=== PATIENT | male | born 1940 | race African-American/Black ===

== ENCOUNTER 2019-02-22 16:51 | Inpatient (IN) | payer MEDICARE ==
[~2019-02-22] VITALS: Ht 180.3 cm; Wt 97.7 kg
--- NOTE | ~2019-02-22 | HEMODYNAMI ---
PATIENT:MANA SAXENA MEDICAL RECORD: [id number] : 36 LOCATION:[place] [address] ADMISSION DATE: 02/24/19 Generatedon:03/02/201918:38 Patient name: MANA SAXENA Patient #: [id number] SSN: : 1940 Date of study: 03/02/2019 Page: Of Hemodynamic Procedure Report Patient Data Patient Demographics Procedure consent was obtained First Name: MANA Gender: Male Last Name: ODESSA : 1940 Patient #: [id number] Age: 78 year(s) Race: Black Additional ID: [id number] Contact details Address: [address] [place] [address] [address]REET State: [place] City: [place] Zip code: [address] Past Medical History Allergies: No known allergies Admission Admission Data Admission Date: 02/24/2019 Admission Time: 9:48 Room #: [facility] Height (in.): 71 BSA: 1.97 (m2) Height (cm.): 180.34 BMI: 23.71 (kg/m2) Weight (lbs.): 170 Weight (kg.): 77.11 Procedure Procedure Types Cath Procedure Peripheral Cath Diagnostic Procedure Hand Laster Peripheral Procedures Abd/Extremity Visceral/Mesenteric Mesenteric Arteriogram (Abd Artery) Procedure Description Procedure Date Procedure Date: 03/02/2019 Procedure Start Time: 17:45 Procedure Staff Name Function Stanley Juan MD Performing Physician Richa Klein RT Vp Of Technology Deanne Iniguez RN Nurse Erich De La Garza RT Scrub Procedure Data Cath Procedure Fluoroscopy Diagnostic fluoroscopy Total fluoroscopy Time: time: 17.3 min 17.3 min Diagnostic fluoroscopy Total fluoroscopy dose: dose: 1602 mGy 1602 mGy Contrast Material Contrast Material Type Amount (ml) Isovue 300 125 Entry Location Entry Primary Successful Side Size Upsize Upsize Entry Closure Succes sful Closure Location (Fr) 1 (Fr) 2 (Fr) Remarks Device Remarks Femoral Exoseal artery Diagnostic catheters Device Type Used For End Catheter Placement Summit Care CHG-B 5FR 65CM catheter ([id number]) Cook Cobra 2 4Fr 65CM catheter ([id number]) Procedure Medications Medication Administration Route Dosage Heparin Flush Bag added to field 3 bags (1000units/500ml NS) Lidocaine 1% added to field 20 Hemodynamics Rest BSA: 1.97 (m2) O2 Consumption: Estimated: 267.92 (ml/min) O2 Consumption indexed : Estimated:136 (ml/min/m) Pre Cath Intra NCS Post Cath Medications Time Medication Route Dose Verified Delivered Reason Notes Effe ctiveness by by 17:51:44 Heparin Flush added 3 Stanley Angel used for Bag to bags Juan Juan procedure (1000units/500ml field MD CASSIDY NS) 17:51:55 Lidocaine 1% added 20ml Stanley Angel for local to vial Juan Juan anesthetic field MD CASSIDY Procedure Log Time Note 16:20:00 Patient Height : 71 inches 16:20:05 Patient Weight : 170 lbs 16:36:10 Use device set IR Diagnostic 16:36:39 DOC .035 wire (F13854) opened to sterile field. 16:36:40 TUBING Contrast Injection High Pressure (CVA672H) opened to sterile field. 16:36:41 PERCUTANEOUS ENTRY 19GA needle opened to sterile field. 16:36:42 SHEATH 5FR [place] (CHV584) opened to sterile field. 16:36:43 Tegaderm 4 x 4 (1626W) opened to sterile field. 16:36:43 Sterile Angiographic Pack opened to sterile field. 16:36:44 Bag Decanter (2002S) opened to sterile field. 16:36:45 ACIST Manifold (41455) opened to sterile field. 16:36:46 ACIST Hand Control (51793) opened to sterile field. 16:36:46 ACIST Syringe (42979) opened to sterile field. 16:36:58 - 17:11:03 Time tracking: Stay late (Procedures after 5:00pm) 17:11:55 Patient received from ICU to IR On ventilator. Tansferred to table in Supine position. 17:12:04 Signed procedure consent form obtained from spouse. 17:12:12 H&P Date Dictated: 03/02/2019 Within 30 days and on chart.. 17:12:24 Family in waiting room. 17:12:27 Patient NPO since Midnight. 17:12:37 Patient allergic to No known allergies 17:12:43 Is the patient allergic to Iodine/contrast media? No. 17:13:40 A Cook CHG-B 5FR 65CM catheter (V53212) was advanced over the wire and used for . 17:14:03 - 17:14:03 ----Pre-sedation anethsthesia assessment.---- 17:14:39 see anesthesia notes for monitoring of patient during procedure, genera l anesthesia 17:41:29 Physician arrived 17:41:30 --------ALL STOP TIME OUT------ 17:41:31 Final Timeout: patient, procedure, and site verified with staff and physician. All members of the team are in agreement. 17:42:00 Right groin site verified by team. 17:42:23 Maximum allowable Isovue 300 dose dialysis patientml. Physician notified. (300ml for normal creatinines. For patients with creatinine of 1.7 or higher multiply weight(kg) x 5 divided by creatinine.) 17:42:56 Fire Safety Assessment: A--An alcohol-based skin anteseptic being used preoperatively., C--Open oxygen or nitrous oxide is being used. 17:43:07 Procedure started. 17:43:07 Full Disclosure recording started 17:45:11 Local anesthetic to right femoral artery with Lidocaine 1% by Stanley Juan MD.INITIAL ACCESS ONLY 17:50:24 A Cook Cobra 2 4Fr 65CM catheter (T15998) was advanced over the wire an d used for . 17:50:32 TORQUE DEVICE PLASTIC .038 ( TD01) opened to sterile field. 17:50:49 GLIDE WIRE ANGLE 180cm (EU2380) opened to sterile field. 17:51:44 Heparin Flush Bag (1000units/500ml NS) 3 bags added to field was administered by Stanley Juan MD; used for procedure; 17:51:55 Lidocaine 1% 20ml vial added to field was administered by Stanley Juan MD; for local anesthetic; 17:54:05 Angiography was performed. 18:00:52 COPILOT Valve Control (1357536) opened to sterile field. 18:00:58 TRANSEND STEERABLE wire ([id number]) opened to sterile field. 18:01:19 RENEGADE STAIGHT 150CM microcatheter ([id number]) opened to sterile field. 18:03:02 COIL Micronester 3mm (N80860) opened to sterile field. 18:04:04 COIL Micronester 3mm (W45884) opened to sterile field. 18:18:39 COIL Micronester 3mm (R89636) opened to sterile field. 18:19:55 COIL Micronester 3mm (A71550) opened to sterile field. 18:21:26 COIL Micronester 3mm (V05940) opened to sterile field. 18:30:43 EXOSEAL 5Fr (EX500) opened to sterile field. 18:31:06 Sheath removed intact; hemostasis achieved with Exoseal to the Femoral artery. 18:31:06 A sheath was inserted into the Femoral artery 18:32:35 Procedure ended.(Physican Out) 18:32:54 Fluoroscopy time 17.30 minutes. 18:33:00 Fluoroscopy dose: 1602 mGy 18:33:00 Flurop Dose total: 1602 18:33:37 Contrast amount:Isovue 300 125ml. 18:33:54 Procedure and supply charges have been captured, reviewed, submitted an d are correct. 18:36:09 Report given to ICU. 18:37:54 Patient transfered to ICU with Bed. Device Usage Item Name Manufacture Quantity Catalog Hospital Part Current Minima l Lot# / Number Charge Number Stock Stock Serial# Code DOC .035 wire Cook Medical 1 [id number] [id number] 5 ([id number]) TUBING Merit 1 [id number] 801496 797214 547280 5 Contrast Medical Injection High Pressure (KQW779H) PERCUTANEOUS Cook Medical 1 H72117 659978 096378 5 [id number] ENTRY 19GA needle SHEATH 5FR Terumo 1 RRL763 532279 612389 539647 5 [place] (FOB209) Tegaderm 4 x 3M 1 1626W 942687 682944 197111 5 4 (1626W) Sterile Cardinal 1 [id number] 703996 057777 5 Angiographic Health Pack Bag Decanter Microtek 1 2001S 199450 33207 863539 5 (2001S) Medical Inc. ACIST Acist 1 57502 239754 507824 145930 5 Manifold Medical (56741) Systems Inc ACIST Hand Acist 1 85859 080538 924647 935332 5 Control Medical (47788) Systems Inc ACIST Syringe Acist 1 68774 074210 732271 816337 20 (47372) Medical Systems Inc Cook CHG-B Summit Care Medical 1 G39301 263991 147891 842643 5 5FR 65CM catheter (S12482) Cook Cobra 2 Summit Care Medical 1 V08031 259528 036996 5 4Fr 65CM catheter (R86367) TORQUE DEVICE Cross 1 TD01 949191 900581 551931 5 PLASTIC .038 Scientific ( TD01) GLIDE WIRE Terumo 1 MZ2996 096045 535978 984998 5 ANGLE 180cm (HB4874) COPILOT Valve Cerrato 1 0164571 239110 664771 103514 5 Control Vascular (6694494) TRANSEND Cross 1 [id number] 983113 050994 5 STEERABLE Scientific wire ([id number]) RENEGADE Cross 1 [id number] 781871 771162 5 STAIGHT 150CM Scientific microcatheter ([id number]) COIL Cook Medical 5 O21901 183677 465538 1 9339286 Micronester 9171573 3mm (Z83237) 9379250 1584788 5808094 EXOSEAL 5Fr Cardinal 1 EX500 204205 772858 091361 10 (EX500) Health Signature Audit Deforest Stage Time Signature Unsigned Intra-Procedure 03/02/2019 Richa Klein 6:38:19 PM RT(R) [facility] [address] [place] [address]
[2019-02-22] MEDS ORDERED: LANTUS INSULIN10 ML SC (16:57)
[2019-02-22] MEDS ORDERED: SYMBICORT 16010.2 GM INH (16:57)
[2019-02-22] MEDS ORDERED: LASIX40 MG PO (16:58)
[2019-02-22] MEDS ORDERED: LIPITOR80 MG PO (16:58)
[2019-02-22] MEDS ORDERED: RENVELA800 MG PO (16:59)
[2019-02-22] MEDS ORDERED: BUSPAR5 MG PO (16:59)
[2019-02-22] MEDS ORDERED: COREG 3.1253.125 MG PO (16:59)
[2019-02-22] MEDS ORDERED: COZAAR25 MG PO (16:59)
[2019-02-22] MEDS ORDERED: BAYER CHEWABLE81 MG PO (16:59)
[2019-02-22 18:40] LABS: BASOPHILS 0.2 % (0-2); EOSINOPHILS 0.2 % (0-7); HEMATOCRIT 35.5 % (42.0-54.0); HEMOGLOBIN 11.1 g/dL (13.5-17.5); IMMATURE GRANULOCYTES 0.3 % (0-5); LYMPHOCYTES 8.1 % (15-50); MCH 27.3 pg (26.0-34.0); MCHC 31.3 g/dL (31.0-37.0); MCV 87.4 fL (80.0-100.0); MONOCYTES 13.6 % (2-11); NEUTROPHILS 77.6 % (40-80); PLATELET COUNT 144 10x3/uL (130-400); RBC 4.06 10x6/uL (4.20-6.10); RDW 22.6 % (11.5-14.5); WBC 6.6 10x3/uL (4.8-10.8)
--- NOTE | 2019-02-22 19:07 | NUR ---
FSBS 186. SBAR REPORT FROM KIERSTEN SUGGS AT THIS TIME.
[2019-02-22 19:24] LABS: ALBUMIN 2.7 g/dL (3.4-5.0); BILIRUBIN - TOTAL 1.59 mg/dL (0.2-1.3); CALCIUM 8.6 mg/dL (8.5-10.1); CARBON DIOXIDE 19.4 mmol/L (21.0-32.0); CREATININE - SERUM 5.2 mg/dL (0.6-1.3); POTASSIUM - SERUM 5.4 mmol/L (3.5-5.1); PROTEIN - SERUM 7.3 g/dL (6.4-8.2)
[2019-02-22 21:15] VITALS: BP 127/67
[2019-02-22 22:04] VITALS: BP 130/76
--- NOTE | 2019-02-22 22:07 | NUR ---
AWAITING IV ACCESS AT THIS TIME.
[2019-02-22 23:04] VITALS: BP 114/61
--- NOTE | 2019-02-22 23:08 | NUR ---
WANG' PHONE NUMBER [phone]
[2019-02-23] VITALS (7 sets, daily range): BP systolic 100–128; BP diastolic 48–78; BMI 23.0
[2019-02-23] MEDS ORDERED: HUMALOG 30100 UNITS/ SQ (00:51)
[2019-02-23] MEDS ORDERED: COZAAR25 MG PO (00:58)
[2019-02-23] MEDS ORDERED: MIRALAX17 GM PO (00:58)
--- NOTE | 2019-02-23 01:03 | NUR ---
RECIEVED REPORT FROM MARSHA RN IN ER. RECIEVED ON FLOOR ON STRETCHER ACCOMPANIED BY STAFF. ALERT AND ORIENTED TO PERSON. DOES NOT ANSWER QUESTIONS. ONLY SAYS " DO WHATEVER YOU GOT TO". CALLED SPOUSE AND ABLE TO GET HISTORY AND MEDICATION INFORMATION. 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 STATES WHEN HE DOES NOT FEEL GOOD HE GETS MEAN. FISTULA TO LEFT UPPER ARM WITH A GOOD BRUIT AND THRILL. DSG INTACT TO SITE. REPORTED HE RECIEVED DIALYSIS TODAY. RASH TO BACK AND LEGS. SPOUSE SAID HE HAS HAD IT FOR A COUPLE OF WEEKS AND HE HAS AN APPOINTMENT WITH A [facility] MARK[facility]. IV TO RIGHT HAND SL.. NO S/S OF DISTRESS OBSERVED.
--- NOTE | 2019-02-23 01:12 | NUR ---
PT RECIEVES HIS MEDICATION THRU THE MAIL AND DOES NOT USE A PHARMACY.
[2019-02-23 05:45] LABS: HEMATOCRIT 34.1 % (42.0-54.0); HEMOGLOBIN 10.7 g/dL (13.5-17.5); MCH 27.2 pg (26.0-34.0); MCHC 31.4 g/dL (31.0-37.0); MCV 86.5 fL (80.0-100.0); RBC 3.94 10x6/uL (4.20-6.10); RDW 22.9 % (11.5-14.5); WBC 6.6 10x3/uL (4.8-10.8)
[2019-02-23 06:15] LABS: PLATELET COUNT 183 10x3/uL (130-400)
[2019-02-23 06:51] LABS: ALBUMIN 2.7 g/dL (3.4-5.0); ANION GAP 24.1 mmol/L (8-16); BILIRUBIN - TOTAL 1.37 mg/dL (0.2-1.3); CALCIUM 8.8 mg/dL (8.5-10.1); CARBON DIOXIDE 21.6 mmol/L (21.0-32.0); CREATININE - SERUM 5.7 mg/dL (0.6-1.3); PHOSPHOROUS 6.7 mg/dL (2.5-4.9); POTASSIUM - SERUM 4.7 mmol/L (3.5-5.1); PROTEIN - SERUM 7.3 g/dL (6.4-8.2)
--- NOTE | 2019-02-23 07:41 | NUR ---
MORNING ROUNDS MADE. PT LAYING IN BED. DENIES PAIN AT THIS TIME. A/O. BREATHING EVEN AND NON LABORED. VITALS STABLE. SAFETY PRECAUTIONS IN PLACE. BED LOWERED AND LOCKED. CL IN REACH. WILL CTM .
[2019-02-23 08:21] LABS: ACANTHOCYTES OCC; ANISOCYTOSIS OCC; LYMPHOCYTES 3 % (15-50); MONOCYTES 2 % (2-11); NEUTROPHILS 90 % (40-80); PLATELET ESTIMATE NORMAL; SCHISTOCYTES OCC
[2019-02-23 08:22] LABS: CRENATED CELLS OCC; SPHEROCYTES OCC
--- NOTE | 2019-02-23 09:51 | NUR ---
SOLUMEDROL GIVEN TO IV IN PT R HAND. PT STATES HE DIDNT SLEEP AT ALL LAST NIGHT AND JUST WANTS TO SLEEP TODAY. PT DENIES PAIN AT THIS TIME. FALL PRECATIONS IN PLACE. NO FURTHER CONCERNS AT THIS TIME. SARAH GOMEZ.
--- NOTE | 2019-02-23 10:54 | NUR ---
PT LAYING IN BED RESTING. TOOK MEDS WITHOUT DIFFICULTY. PT NOW ON NPO STATUS FOR ABD ULTRASOUND THIS AFTERNOON.
[2019-02-23 11:09] LABS: INR 1.97 (0.85-1.17); PROTIME 21.7 SECONDS (11.6-15.0)
--- NOTE | 2019-02-23 12:47 | NUR ---
I have reviewed this patient and I concur with the Shift Assessment completed by the Licensed Practical Nurse today this shift.
--- NOTE | 2019-02-23 13:54 | NUR ---
PT UP TO CHIAR.
--- NOTE | 2019-02-23 15:56 | MORECARE ---
CASE MANAGEMENT DISCHARGE SUMMARY PATIENT: MANA SAXENA UNIT: [id number] ADM DATE: 02/22/19 AGE: 78 : 38 SEX: M ROOM/BED: D.2126 AUTHOR: JORGE LORENZO PHYSICIAN: REFERRING PHYSICIAN: CASEY NAIDU MD DATE OF SERVICE: 02/23/19 Discharge Plan Patient Name: MANA SAXENA Facility: [facility]:[place] : 1940 Planned Disposition: Home with Home Health Anticipated Discharge Date: 02/24/19 Discharge Date: Expected LOS: 2 Initial Reviewer: [email or web address] Initial Review Date: 02/22/2019 Generated: 02/23/19 4:56 pm DCPIA - Discharge Planning Initial Assessment Updated by [email or web address]: Freddy Salazar on 02/23/19 3:52 pm * Is the patient Alert and Oriented? Yes * How many steps to enter\exit or inside your home? RAMP * PCP DR. VIC PAREDES IN [place] * Pharmacy [facility] IN [place] * Preadmission Environment Home with Family * ADLs Partial Dependent * Partial ADLs (Assistance needed) Bathing Medication Management * Equipment Rolling Walker * Other Equipment ROLLING WALKER WITH SEAT AND BRAKES NO MEDICAL EQUIPMENT PROVIDER PREFERENCE * List name and contact numbers for known caregivers / representatives who currently or will assist patient after discharge: QUEEN ODESSA, KATY, CADEN ANDERSON, * Verbal permission to speak to the caregivers and representatives has been obtained from the patient. Yes * Community resources currently utilized Home Health * Please name any agencies selected above. [facility], NURSING [facility]YSICAL THERAPY * Additional services required to return to the preadmission environment? No * Can the patient safely return to the preadmission environment? Yes * Has this patient been hospitalized within the prior 30 days at any hospital? Yes Patient Name: MANA SAXENA Page 33660 at 1556 All edits/amendments must be made on the electronic document DICTATION DATE: 02/23/19 1556 DIGITAL MEDIA REPRESENTATIVE: GRACE 02/23/19 1556 RPT#: [id number] DC DATE: STATUS: ADM IN [facility] [address] [facility] [place] [address] END OF REPORT
--- NOTE | 2019-02-23 16:06 | MORECARE ---
CASE MANAGEMENT DISCHARGE SUMMARY PATIENT: MANA SAXENA UNIT: [id number] ADM DATE: 02/22/19 AGE: 78 : 38 SEX: M ROOM/BED: D.8306 AUTHOR: BJDOC PHYSICIAN: REFERRING PHYSICIAN: CASEY NAIDU MD DATE OF SERVICE: 02/23/19 Discharge Plan Patient Name: MANA SAXENA Facility: [facility]:[place] : 1940 Planned Disposition: Home with Home Health Anticipated Discharge Date: 02/24/19 Discharge Date: Expected LOS: 2 Initial Reviewer: [email or web address] Initial Review Date: 02/22/2019 Generated: 02/23/19 5:06 pm Comments DCP- Discharge Planning Updated by [id number]: Freddy Salazar on 02/23/19 3:[address] Patient Name: MANA SAXENA Admission Status: ER Accout number: [id number] Admission Date: 02-22-2019 : 1940 Admission Diagnosis: Attending: CASEY NAIDU Current LOS: 1 Anticipated DC Date: 02-24-2019 Planned Disposition: Home with Home Health Primary Insurance: UNINSURED DISCOUNT PLAN PLANNED EXTERNAL PROVIDER: [facility] Discharge Planning Comments: CM RECEIVED ORDER FOR HOME HEALTH. CM MET WITH PT AND SPOUSE IN ROOM TO DISCUSS DISCHARGE PLANNING AND NEEDS. MANA SAXENA provided verbal consent to discuss current and ongoing needs with/in the presence of: SPOUSE, . ANSWERED ALL QUESTIONS. PT LIVING AT HOME DEPENDENTLY WITH SPOUSE WHO ASSISTS WITH MEDICATIONS. PT HAS BEEN GETTING WEAKER AND NOW NEEDS ASSISTANCE WITH BATHING. PT HAS WALKER WITH WHEELS, SEAT AND BRAKES AND NO MEDICAL EQUIPMENT PROVIDER PREFERENCE. PT HAS HOME HEALTH WITH [facility] FOR NURSING AND PHYSICAL THERAPY. CM DISCUSSED AVAILABILITY OF HOME HEALTH, REHAB SERVICES AND MEDICAL EQUIPMENT. PT'S SPOUSE WANTS [facility] RESUMPTION AND REPORTS NEEDING A WHEELCHAIR PT IS NO LONGER ABLE TO CLIMB THE STEPS TO GET ON THE MEDICAID BUS FOR DIALYSIS TRANSPORTATION. PT GOES TO DIALYSIS IN [place] ON MWF SCHEDULE. PT'S FAMILY TO TRANSPORT HOME AT DISCHARGE. CHOICE SIGNED FOR [facility], CHOICE FOR NO PREFERENCE FOR MEDICAL EQUIPMENT PROVIDER COMPLETED BY [facility]. CM COLLECTED REGISTRATION INFORMATION AND FORWARDED TO [facility] OF REGISTRATION. CM SPOKE TO BOWEN TEJADA WHO PROVIDED ORDER FOR WHEELCHAIR. CM CALLED [facility]IENT, , SPOKE TO AYUSH AND PROVIDED REFERRAL INFORMATION FOR WHEELCHAIR. CM FAXED ORDER AND CHART INFORMATION TO [facility] AT [phone]. [facility] PAT[facility] TO PROCESS ORDER FOR WHEELCHAIR DELIVERY TO PT IF QUALIFIES; PT'S INSURANCE REQUIRES PRIOR AUTHORIZATION. CM CALLED [facility], , SPOKE TO KURT, PROVIDED REFERRAL INFORMATION, PT IS ON SERVICES WITH [facility] ALREADY.. CM FAXED REFERRAL INFORMATION TO [facility], . FOR DISCHARGE, NOTIFY [facility] AT [phone]; FAX DISCHARGE INFORMATION TO [facility] AT [phone]. Vein Access Technician: Freddy Salazar DCPIA - Discharge Planning Initial Assessment Updated by [email or web address]: Freddy Salazar on 02/23/19 3:52 pm * Is the patient Alert and Oriented? Yes * How many steps to enter\exit or inside your home? RAMP * PCP DR. VIC PAREDES IN [place] * Pharmacy [facility] IN [place] * Preadmission Environment Home with Family * ADLs Partial Dependent * Partial ADLs (Assistance needed) Bathing Medication Management * Equipment Rolling Walker * Other Equipment ROLLING WALKER WITH SEAT AND BRAKES NO MEDICAL EQUIPMENT PROVIDER PREFERENCE * List name and contact numbers for known caregivers / representatives who currently or will assist patient after discharge: QUEEN ODESSA, SPOUSE, IDRIS SAXENA, NIECE, * Verbal permission to speak to the caregivers and representatives has been obtained from the patient. Yes * Community resources currently utilized Home Health * Please name any agencies selected above. [facility], NURSING AND PHYSICAL THERAPY * Additional services required to return to the preadmission environment? No * Can the patient safely return to the preadmission environment? Yes * Has this patient been hospitalized within the prior 30 days at any hospital? Yes External Providers External Provider: [facility] Next Contact Date: 02/23/2019 Service Request Date: Service Type: Resolution: Reviewer: Comments: Last DP export: 02/23/19 2:56 p Patient Name: MANA SAXENA Page 35927 at 1606 All edits/amendments must be made on the electronic document DICTATION DATE: 02/23/191605 PLASTERING SUPERVISOR: GRACE 02/23/191605 RPT#: [id number] DC DATE: STATUS: ADM IN [facility] [address] [place] [address] END OF REPORT
--- NOTE | 2019-02-23 16:24 | MORECARE ---
CASE MANAGEMENT DISCHARGE SUMMARY PATIENT: MANA SAXENA UNIT: [id number] ADM DATE: 02/22/19 AGE: 78 : 38 SEX: M ROOM/BED: D.7976 AUTHOR: BJDOC PHYSICIAN: REFERRING PHYSICIAN: CASEY NAIDU MD DATE OF SERVICE: 02/23/19 Discharge Plan Patient Name: MANA SAXENA Facility: [facility]:[place] : 1940 Planned Disposition: Home with Home Health Anticipated Discharge Date: 02/24/19 Discharge Date: Expected LOS: 2 Initial Reviewer: [email or web address] Initial Review Date: 02/22/2019 Generated: 02/23/19 5:24 pm Comments DCP- Discharge Planning Updated by [email or web address]: Freddy Salazar on 02/23/19 3:[address] Patient Name: MANA SAXENA Admission Status: ER Accout number: [id number] Admission Date: 02-22-2019 : 1940 Admission Diagnosis: Attending: CASEY NAIDU Current LOS: 1 Anticipated DC Date: 02-24-2019 Planned Disposition: Home with Home Health Primary Insurance: UNINSURED DISCOUNT PLAN PLANNED EXTERNAL PROVIDER: [facility] Discharge Planning Comments: CM RECEIVED ORDER FOR HOME HEALTH. CM MET WITH PT AND SPOUSE IN ROOM TO DISCUSS DISCHARGE PLANNING AND NEEDS. MANA SAXENA provided verbal consent to discuss current and ongoing needs with/in the presence of: SPOUSE, . ANSWERED ALL QUESTIONS. PT LIVING AT HOME DEPENDENTLY WITH SPOUSE WHO ASSISTS WITH MEDICATIONS. PT HAS BEEN GETTING WEAKER AND NOW NEEDS ASSISTANCE WITH BATHING. PT HAS WALKER WITH WHEELS, SEAT AND BRAKES AND NO MEDICAL EQUIPMENT PROVIDER PREFERENCE. PT HAS HOME HEALTH WITH [facility] FOR NURSING AND PHYSICAL THERAPY. CM DISCUSSED AVAILABILITY OF HOME HEALTH, REHAB SERVICES AND MEDICAL EQUIPMENT. PT'S SPOUSE WANTS [facility] RESUMPTION AND REPORTS NEEDING A WHEELCHAIR PT IS NO LONGER ABLE TO CLIMB THE STEPS TO GET ON THE MEDICAID BUS FOR DIALYSIS TRANSPORTATION. PT GOES TO DIALYSIS IN [place] ON MWF SCHEDULE. PT'S FAMILY TO TRANSPORT HOME AT DISCHARGE. CHOICE SIGNED FOR [facility], CHOICE FOR NO PREFERENCE FOR MEDICAL EQUIPMENT PROVIDER COMPLETED BY [facility]. CM COLLECTED REGISTRATION INFORMATION AND FORWARDED TO LOCATED WITHIN [facility] OF REGISTRATION. CM SPOKE TO BOWEN TEJADA WHO PROVIDED ORDER FOR WHEELCHAIR. CM CALLED [facility]IENT, , SPOKE TO AYUSH AND PROVIDED REFERRAL INFORMATION FOR WHEELCHAIR. CM FAXED ORDER AND CHART INFORMATION TO [facility] PATIENT AT [phone]. [facility] PATIENT TO PROCESS ORDER FOR WHEELCHAIR DELIVERY TO PT IF QUALIFIES; PT'S INSURANCE REQUIRES PRIOR AUTHORIZATION. CM CALLED [facility], , SPOKE TO KURT, PROVIDED REFERRAL INFORMATION, PT IS ON SERVICES WITH [place] ALREADY.. CM FAXED REFERRAL INFORMATION TO [facility], . FOR DISCHARGE, NOTIFY [facility] AT [phone]; FAX DISCHARGE INFORMATION TO [place] AT [phone]. Optimization Consultant: Freddy Salazar DCPIA - Discharge Planning Initial Assessment Updated by [id number]: Freddy Salazar on 02/23/19 3:52 pm * Is the patient Alert and Oriented? Yes * How many steps to enter\exit or inside your home? RAMP * PCP DR. VIC PAREDES IN [place] * Pharmacy [facility] IN [place] * Preadmission Environment Home with Family * ADLs Partial Dependent * Partial ADLs (Assistance needed) Bathing Medication Management * Equipment Rolling Walker * Other Equipment ROLLING WALKER WITH SEAT AND BRAKES NO MEDICAL EQUIPMENT PROVIDER PREFERENCE * List name and contact numbers for known caregivers / representatives who currently or will assist patient after discharge: QUEEN ODESSA, SPOUSE, IDRIS SAXENA, NIECE, * Verbal permission to speak to the caregivers and representatives has been obtained from the patient. Yes * Community resources currently utilized Home Health * Please name any agencies selected above. [facility], NURSING AND PHYSICAL THERAPY * Additional services required to return to the preadmission environment? No * Can the patient safely return to the preadmission environment? Yes * Has this patient been hospitalized within the prior 30 days at any hospital? Yes External Providers [facility] Provider[facility] Next Contact Date: 02/24/2019 Service Request Date: Service Type: Resolution: Reviewer: Comments: Coverage Notice Reviewer: [id number] - Freddy Salazar Notice Issued Date-Time: 02/23/2019 15:15 Notice Type: Patient Choice Letter Notice Delivered To: Family Member Relationship to Patient: Spouse Plasticator Name: QUEEN ODESSA Delivery Method: HAND - Hand Delivered Cristina Days: Prior Verbal Notification: Recipient Understood Notice: Yes Recipient Signature: Yes Med Rec Note Co-signed by Attending: Coverage Notice Comment: ANY MEDICAL EQUIPMENT COMPANY SERVICING [place] // [facility] Last DP export: 02/23/19 3:06 p Patient Name: MANA SAXENA Page 24555 at 1624 All edits/amendments must be made on the electronic document DICTATION DATE: 02/23/191623 ACTUARIAL INTERN: GRACE 02/23/191623 RPT#: [id number] DC DATE: STATUS: ADM IN [facility] [address] [place] [address] END OF REPORT
--- NOTE | 2019-02-23 19:44 | NUR ---
US TECH AT BED SIDE TO OBTAIN ABD ULTRA SOUND.
--- NOTE | 2019-02-23 20:03 | NUR ---
US SOUND COMPLETE, SANDWHICH TRAY GIVEN AT PT REQUEST.
--- NOTE | 2019-02-23 21:32 | NUR ---
HS MEDS GIVEN WITH FRESH ICE WATER. BS 276, LANTUS 12 UNITS GIVEN AT ORDERED. PT DENIES NEEDS.
[2019-02-24] VITALS: BP 116/60
--- NOTE | 2019-02-24 02:42 | NUR ---
RESTING WITH EYES CLOSED, RESPERATIONS EVEN, NO S/S DISTRESS NOTED.
[2019-02-24 04:00] VITALS: BP 112/66
[2019-02-24 07:06] LABS: HEMATOCRIT 35.2 % (42.0-54.0); HEMOGLOBIN 11.1 g/dL (13.5-17.5); MCH 27.6 pg (26.0-34.0); MCHC 31.5 g/dL (31.0-37.0); MCV 87.6 fL (80.0-100.0); PLATELET COUNT 198 10x3/uL (130-400); RBC 4.02 10x6/uL (4.20-6.10); RDW 23.3 % (11.5-14.5); WBC 6.9 10x3/uL (4.8-10.8)
--- NOTE | 2019-02-24 07:10 | NUR ---
REPORT RECEIVED FROM TOP LIFT NAILER AND PATIENT CARE ASSUMED. PATIENT IS LAYING ON BACK IN BED WITH EYES CLOSED AND BREATHING EVENLY. VSS. WILL CONTINUE WITH PLAN OF CARE. SR UP X 2 BED IN LOW POSTION AND CALL LIGHT IN REACH.
[2019-02-24 07:26] LABS: ALBUMIN 2.7 g/dL (3.4-5.0); BILIRUBIN - TOTAL 1.13 mg/dL (0.2-1.3); CALCIUM 8.7 mg/dL (8.5-10.1); CARBON DIOXIDE 18.8 mmol/L (21.0-32.0); CREATININE - SERUM 7.1 mg/dL (0.6-1.3); PROTEIN - SERUM 7.5 g/dL (6.4-8.2)
[2019-02-24 07:29] LABS: PHOSPHOROUS 8.9 mg/dL (2.5-4.9); POTASSIUM - SERUM 5.8 mmol/L (3.5-5.1)
[2019-02-24 07:47] LABS: ACANTHOCYTES OCC; CRENATED CELLS OCC; LYMPHOCYTES 11 % (15-50); MONOCYTES 13 % (2-11); NEUTROPHILS 74 % (40-80); PLATELET ESTIMATE NORMAL; ROULEAUX OCC; SCHISTOCYTES OCC
[2019-02-24 08:15] VITALS: BP 148/76
[2019-02-24 09:14] LABS: HEPATITIS C ANTIBODY <0.1 S/CO RAT (0.0-0.9)
[2019-02-24 12:18] VITALS: BP 136/71
--- NOTE | 2019-02-24 14:10 | NUR ---
PATIENT RESTING QUIETLY IN BED . VSS. WILL CONTINUE TO MONIOR. SR UP X 2 BED IN LOW POSTION AND CALL LIGHT IN REACH.
--- NOTE | 2019-02-24 14:19 | NUR ---
PATIENT IS STABLE AND VSS. PATIENT TO DIALYSIS VIA AND HOSPITAL PERSONEL.
[2019-02-24 15:27] VITALS: BP 129/72
--- NOTE | 2019-02-24 16:30 | NUR ---
PATIENT RETURNED FROM DIALYSIS. PATIENT IS STABLE AND VSS. WILL CONTINUE TO MONITOR. PATIENT DENIES ANY NEEDS OR PAIN. SR UP X 2 BED IN LOW POSTION AND CALL LIGHT IN REACH.
[2019-02-24 21:21] VITALS: BP 107/62
[2019-02-25] VITALS (7 sets, daily range): BP systolic 92–186; BP diastolic 54–68
--- NOTE | 2019-02-25 02:54 | NUR ---
RESTING WITH EYES CLOSED, RESPERATIONS EVEN, NO S/S DISTRESS NOTED.
[2019-02-25 05:17] LABS: BASOPHILS 0 % (0-2); EOSINOPHILS 0 % (0-7); HEMATOCRIT 33.4 % (42.0-54.0); HEMOGLOBIN 10.5 g/dL (13.5-17.5); IMMATURE GRANULOCYTES 0.4 % (0-5); LYMPHOCYTES 5.6 % (15-50); MCH 27.1 pg (26.0-34.0); MCHC 31.4 g/dL (31.0-37.0); MCV 86.1 fL (80.0-100.0); MONOCYTES 6.8 % (2-11); NEUTROPHILS 87.2 % (40-80); RBC 3.88 10x6/uL (4.20-6.10); RDW 23.3 % (11.5-14.5)
[2019-02-25 05:26] LABS: PLATELET COUNT 140 10x3/uL (130-400); WBC 9.8 10x3/uL (4.8-10.8)
[2019-02-25 05:39] LABS: % SATURATION 10 % (15-55); IRON 26 ug/dl (35-150); TOTAL IRON BIND CAPACITY 260 ug/dl (260-445); UNSAT IRON BIND CAPACITY 234 ug/dl (150-375)
[2019-02-25 05:55] LABS: ALBUMIN 2.6 g/dL (3.4-5.0); BILIRUBIN - TOTAL 0.99 mg/dL (0.2-1.3); CALCIUM 8.4 mg/dL (8.5-10.1); CREATININE - SERUM 6.4 mg/dL (0.6-1.3); PHOSPHOROUS 7.2 mg/dL (2.5-4.9); T4 THYROXIN - FREE 1.09 ng/dL (0.76-1.46); THYROID STIMULATING HORMONE 1.55 uIU/mL (0.36-3.74)
[2019-02-25 05:57] LABS: ANION GAP 18.4 mmol/L (8-16); CARBON DIOXIDE 23.8 mmol/L (21.0-32.0); POTASSIUM - SERUM 4.2 mmol/L (3.5-5.1)
--- NOTE | 2019-02-25 07:37 | NUR ---
MORNING ROUNDS MADE. PT LAYING IN BED RESTING. ALERT TO SELF. REORIENTED PT. HARD OF HEARING. RM AIR. R FA IV SL, PATENT, NO REDNESS OR EDEMA NOTED. AUGIE MAT ON. PT NPO AT THIS TIME FOR CT OF ABD. L AV FISTULA. LUNGS CLEAR. FALL PRECAUTIONS IN PLACE. DENIES PAIN AT THIS TIME. BED LOWERED AND LOCKED. CL IN REACH. WILL CTM.
--- NOTE | 2019-02-25 08:07 | NUR ---
WHILE IN ROOM GIVING MEDS. PT STATED THAT HE NEEDED TO GO TO BATHROOM. ASSISTED PT TO BATHROOM X 1 ASSIST. GAIT UNSTEADY/WEAK. NON SKID SOCKS ON. YELLOW GOWN ON. EMEMERGENCY LIGHT WITHIN REACH IN BATHROOM. WILL CTM.
--- NOTE | 2019-02-25 08:07 | NUR ---
PT TOOK MEDS WITHOUT DIFFICULTY. VITALS STALBLE. WILL CTM.
--- NOTE | 2019-02-25 10:11 | NUR ---
I have reviewed this patient and I concur with the Shift Assessment completed by the Licensed Practical Nurse today this shift.
--- NOTE | 2019-02-25 10:30 | NUR ---
PT TO CT VIA BED
--- NOTE | 2019-02-25 10:36 | NUR ---
PT BACK TO FLOOR VIA BED FROM CT
--- NOTE | 2019-02-25 11:58 | NUR ---
ASSISTED PT FROM BEDSIDE COMMODE TO BED. SAT UP IN BED. AUGIE MAT ON. FALL PRECAUTIONS IN PLACE. BED LOWERED AND LOCKED. CL IN REACH. WILL CTM
--- NOTE | 2019-02-25 13:40 | NUR ---
PT REFUSES SCDS
--- NOTE | 2019-02-25 20:02 | NUR ---
HS MEDS GIVEN WITH FRESH ICE WATER, UP WITH ASSIST TO CHAIR AT PT REQUEST. AUGIE HOLM IN USE FOR PT SAFETY.
--- NOTE | 2019-02-25 22:50 | NUR ---
STOOL SPECIMEN COLLECTED AND TAKEN TO LAB.
[2019-02-26 01:11] VITALS: BP 147/92
--- NOTE | 2019-02-26 03:14 | NUR ---
I have reviewed this patient and I concur with the Shift Assessment completed by the Licensed Practical Nurse today this shift.
--- NOTE | 2019-02-26 03:22 | NUR ---
RESTING WITH EYES CLOSED, RESPERATIONS EVEN, NO S/S DISTRESS NOTED.
--- NOTE | 2019-02-26 05:10 | NUR ---
PT FSBS IS 38, IV BLEW. PT NOT RESPONSIVE AT THIS TIME. WILL OPEN EYES TO A STERNUM RUB. IM GLUCOGEN 1ML GIVEN. ATTEMPTING TO OBTAIN AN IV NOW
[2019-02-26 05:23] VITALS: BP 105/63
--- NOTE | 2019-02-26 05:41 | NUR ---
NURSI FROM ER AT BED SIDE, 22 GUAGE SITED TO RIGHT THUMB. BS RE-CHECK IS 134.
[2019-02-26 07:06] LABS: HEMATOCRIT 31.5 % (42.0-54.0); MCH 27.5 pg (26.0-34.0); MCHC 31.7 g/dL (31.0-37.0); MCV 86.8 fL (80.0-100.0); RBC 3.63 10x6/uL (4.20-6.10); RDW 23.2 % (11.5-14.5); WBC 8.3 10x3/uL (4.8-10.8)
[2019-02-26 07:07] LABS: PLATELET COUNT 89 10x3/uL (130-400)
[2019-02-26 07:12] LABS: ALBUMIN 2.2 g/dL (3.4-5.0); ANION GAP 17.2 mmol/L (8-16); BILIRUBIN - TOTAL 0.79 mg/dL (0.2-1.3); CALCIUM 7.8 mg/dL (8.5-10.1); CARBON DIOXIDE 23.6 mmol/L (21.0-32.0); CREATININE - SERUM 7.6 mg/dL (0.6-1.3); PHOSPHOROUS 7.9 mg/dL (2.5-4.9); POTASSIUM - SERUM 3.8 mmol/L (3.5-5.1); PROTEIN - SERUM 6.2 g/dL (6.4-8.2)
--- NOTE | 2019-02-26 07:55 | NUR ---
ASSESSMENT DONE. DENIES NEEDS.
[2019-02-26 09:30] VITALS: BP 85/53
[2019-02-26 09:52] LABS: LYMPHOCYTES 4 % (15-50); MONOCYTES 8 % (2-11); NEUTROPHILS 85 % (40-80); PLATELET ESTIMATE DECREASED
[2019-02-26 09:53] LABS: ACANTHOCYTES OCC; BURR CELLS 1+; CRENATED CELLS 2+; SCHISTOCYTES OCC
[2019-02-26 11:14] LABS: ALPHA FETOPROTEIN -(TUMOR MRK) 0.7 ng/mL (0.0-8.3)
[2019-02-26 12:11] LABS: EBV - EARLY ANTIGEN AB IGG <9.0 U/mL (0.0-8.9); EBV - NUCLEAR ANTIGEN AB IGG >600.0 U/mL (0.0-17.9); EBV VIRAL CAPSID AB IGG >600.0 U/mL (0.0-17.9); EBV VIRAL CAPSID AB IGM <36.0 U/mL (0.0-35.9)
--- NOTE | 2019-02-26 13:58 | MORECARE ---
CASE MANAGEMENT DISCHARGE SUMMARY PATIENT: MANA SAXENA UNIT: [id number] ADM DATE: 02/24/19 AGE: 78 : 38 SEX: M ROOM/BED: D.2126 AUTHOR: BJ,DOC PHYSICIAN: REFERRING PHYSICIAN: CASEY NAIDU MD DATE OF SERVICE: 02/26/19 Discharge Plan Patient Name: MANA SAXENA Facility: [facility]:[place] : 1940 Planned Disposition: Inpatient Rehab Anticipated Discharge Date: 02/24/19 Discharge Date: Expected LOS: 1 Initial Reviewer: [id number] Initial Review Date: 02/22/2019 Generated: 02/26/19 2:57 pm Comments DCP- Discharge Planning Updated by [id number]: Freddy Salazar on 02/26/19 12:[address] Patient Name: MANA SAXENA Encounter No: [id number] : 1940 Primary Insurance: AETNA MEDICARE PPO or HMO Anticipated DC Date: 02-24-2019 Planned Disposition: Inpatient Rehab External Planned Provider: [facility] INPATIENT REHAB DCP follow-up note: CM RECEIVED CALL FROM AYUSH OF [facility]; SHE HAD CALLED PT'S SPOUSE TO ARRANGE DELIVERY OF MANUAL WHEELCHAIR AND SPOUSE REFUSED IT STATING THAT SHE CANNOT PHYSICALLY PUSH PT IN A WHEELCHAIR AND REQEUSTED A POWER CHAIR. CM ATTEMPTED TO SEE PT'S SPOUSE IN ROOM, SHE WAS NOT THERE. CM CALLED QUEEN ODESSA, . CM INFORMED THAT AN ELECTRIC WHEELCHAIR REQUIRES VERY DETAILED AND LENGHTY DOCUMENTATION THAT CANNOT BE DONE FROM HOSPITAL, REFERRED HER TO PT'S PRIMARY CARE DOCTOR. CM DISCUSSED AVAILABILITY OF REHAB SERVICES, PROVIDERS AND LOCATIONS. REPORTS SHE IS OLDER THAN PT AND IS HAVING TROUBLE CARING FOR PT IN HIS WEAKENED STATE AND WOULD LIKE REHAB AT [facility] FIRST CHOICE AND [facility] THIRD BUT WILL NOT CONSIDER [facility] IN [place]. CHOICE LETTER COMPLETED. CHART REVIEWED, PHYSICAL THERAPY EVALUATION STILL PENDING, NO OCCUPATIONAL THERAPY HAD BEEN ORDERED. CM OBTAINED ORDER FOR OCCUPATIONAL THERAPY EVALUATION. CM TO PROVIDE REFERRAL TO [facility] FOR INPATIENT REHAB CONSIDERATION ONCE PHYSICAL AND OCCUPATIONAL THERAPY EVALUATIONS ARE COMPLETED. FATOUMATA Alvarenga MANAGEMENT DCP- Discharge Planning Updated by [id number]: Freddy Salazar on 02/23/19 3:[address] Patient Name: MANA SAXENA Admission Status: ER Accout number: [id number] Admission Date: 02-22-2019 : 1940 Admission Diagnosis: Attending: CASEY NAIDU Current LOS: 1 Anticipated DC Date: 02-24-2019 Planned Disposition: Home with Home Health Primary Insurance: UNINSURED DISCOUNT PLAN PLANNED EXTERNAL PROVIDER: [facility] Discharge Planning Comments: CM RECEIVED ORDER FOR HOME HEALTH. CM MET WITH PT AND SPOUSE IN ROOM TO DISCUSS DISCHARGE PLANNING AND NEEDS. MANA SAXENA provided verbal consent to discuss current and ongoing needs with/in the presence of: SPOUSE, . ANSWERED ALL QUESTIONS. PT LIVING AT HOME DEPENDENTLY WITH SPOUSE WHO ASSISTS WITH MEDICATIONS. PT HAS BEEN GETTING WEAKER AND NOW NEEDS ASSISTANCE WITH BATHING. PT HAS WALKER WITH WHEELS, SEAT AND BRAKES AND NO MEDICAL EQUIPMENT PROVIDER PREFERENCE. PT HAS HOME HEALTH WITH [facility] FOR NURSING AND PHYSICAL THERAPY. CM DISCUSSED AVAILABILITY OF HOME HEALTH, REHAB SERVICES AND MEDICAL EQUIPMENT. PT'S SPOUSE WANTS [facility] HEALTH RESUMPTION AND REPORTS NEEDING A WHEELCHAIR PT IS NO LONGER ABLE TO CLIMB THE STEPS TO GET ON THE MEDICAID BUS FOR DIALYSIS TRANSPORTATION. PT GOES TO DIALYSIS IN [place] ON MWF SCHEDULE. PT'S FAMILY TO TRANSPORT HOME AT DISCHARGE. CHOICE SIGNED FOR [facility], CHOICE FOR NO PREFERENCE FOR MEDICAL EQUIPMENT PROVIDER COMPLETED BY [facility]. CM COLLECTED REGISTRATION INFORMATION AND FORWARDED TO [facility] OF REGISTRATION. CM SPOKE TO BOWEN TEJADA WHO PROVIDED ORDER FOR WHEELCHAIR. CM CALLED [facility], , SPOKE TO AYUSH AND PROVIDED REFERRAL INFORMATION FOR WHEELCHAIR. CM FAXED ORDER AND CHART INFORMATION TO [facility] AT [phone]. [facility] TO PROCESS ORDER FOR WHEELCHAIR DELIVERY TO PT IF QUALIFIES; PT'S INSURANCE REQUIRES PRIOR AUTHORIZATION. CM CALLED [facility], , SPOKE TO KURT, PROVIDED REFERRAL INFORMATION, PT IS ON SERVICES WITH [facility] ALREADY.. CM FAXED REFERRAL INFORMATION TO [facility], . FOR DISCHARGE, NOTIFY [facility] AT [phone]; FAX DISCHARGE INFORMATION TO [facility] AT [phone]. Ice Cream Server: Freddy Salazar DCPIA - Discharge Planning Initial Assessment Updated by [id number]: Freddy Salazar on 02/23/19 3:52 pm * Is the patient Alert and Oriented? Yes * How many steps to enter\exit or inside your home? RAMP * PCP DR. VIC PAREDES IN [place] * Pharmacy [facility] IN [place] * Preadmission Environment Home with Family * ADLs Partial Dependent * Partial ADLs (Assistance needed) Bathing Medication Management * Equipment Rolling Walker * Other Equipment ROLLING WALKER WITH SEAT AND BRAKES NO MEDICAL EQUIPMENT PROVIDER PREFERENCE * List name and contact numbers for known caregivers / representatives who currently or will assist patient after discharge: QUEEN ODESSA, SPOUSE, CADEN ANDEROSN, * Verbal permission to speak to the caregivers and representatives has been obtained from the patient. Yes * Community resources currently utilized Home Health * Please name any agencies selected above. [facility], NURSING AND PHYSICAL THERAPY * Additional services required to return to the preadmission environment? No * Can the patient safely return to the preadmission environment? Yes * Has this patient been hospitalized within the prior 30 days at any hospital? Yes Coverage Notice Reviewer: [id number] Edilia Salazar Notice Issued Date-Time: 02/23/2019 15:15 Notice Type: Patient Choice Letter Notice Delivered To: Family Member Relationship to Patient: Spouse Approver Name: QUEEN ODESSA Delivery Method: HAND - Hand Delivered Cristina Days: Prior Verbal Notification: Recipient Understood Notice: Yes Recipient Signature: Yes Med Rec Note Co-signed by Attending: Coverage Notice Comment: ANY MEDICAL EQUIPMENT COMPANY SERVICING [place] // [facility] Reviewer: [id number] Edilia Salazar Notice Issued Date-Time: 02/26/2019 12:00 Notice Type: Patient Choice Letter Notice Delivered To: Family Member Relationship to Patient: Spouse Approver Name: QUEEN ODESSA Delivery Method: PHONE - Phone Cristina Days: Prior Verbal Notification: Recipient Understood Notice: Yes Recipient Signature: Med Rec Note Co-signed by Attending: Coverage Notice Comment: [facility] NOT [facility]!! Last DP export: 02/23/19 3:24 p Patient Name: MANA SAXENA Page 19474 at 1358 All edits/amendments must be made on the electronic document DICTATION DATE: 02/26/191356 GEOPHYSICS SCIENTIST: GRACE 02/26/191356 RPT#: [id number] DC DATE: STATUS: ADM IN [facility] [address] [place] [address] END OF REPORT
--- NOTE | 2019-02-26 14:32 | NUR ---
Nutrition follow-up: Diet: Renal ADA PO intake very poor; ~25% of some meals Pt not responding well to nurse at this time Labs reviewed +BM, loose, watery Wt: 165# Will continue to encourage increased po intake and honor food preferences within diet restrictions. May need to consider liberalizing diet to also encourage increased po intake. RDN following.
--- NOTE | 2019-02-26 15:53 | NUR ---
I have reviewed this patient and I concur with the Shift Assessment completed by the Licensed Practical Nurse today this shift.
--- NOTE | 2019-02-26 16:32 | NUR ---
WITHOUT CHANGES OR DISTRESS NOTED AT THIS TIME.
[2019-02-26 20:00] VITALS: BP 98/62
--- NOTE | 2019-02-26 20:39 | NUR ---
INITISL ROUNDS COMPLETED AT 1910 HRS. PT RESTING WITH EYES CLOSED IN CHAIR. RESP EVEN AND REGULAR. ASSESSMENT COMPLETED AT 2000 HRS. PT AWKAE; ALERT AND ORIENTED TO PERSON AND PLACE. REORIENTED TO TIME. IV TO R THUMB SL. LAVF WITH BRUIT AND THRILL NOTED. LUNGS DIMINISHED IN BASES BILAT. CROOK. ASSISTED TO BED. AUGIE MAT ALARM ON. SR UP X3, CALL LIGHT WITHIN REACH.
--- NOTE | 2019-02-26 22:45 | NUR ---
PM MEDS GIVEN AT HS WITH 240CC OF APPLE JUICE. FSBS 73. PT CURRENTLY RESTING WITH EYES CLOSED. RESP EVEN AND REGULAR. SR UP X2, CALL LIGHT WITHIN REACH AND BED ALARM ON.
--- NOTE | 2019-02-27 00:15 | NUR ---
PT RESTING WITH EYES CLOSED. RESP EVEN AND REGULAR. SR UP X2, CALL LIGHT WITHIN REACH.
--- NOTE | 2019-02-27 01:52 | NUR ---
PT AWAKE; DENIES ANY DISCOMFORT. SR UP X2, CALL LIGHT WITHIN REACH AND BED ALARM ON.
--- NOTE | 2019-02-27 04:22 | NUR ---
PT RESTING WITH EYES CLOSED. PT GROANING TO SELF BUT DENIES PAIN OR DISCOMFORT. SR UP X2, CALL LIGHT WITHIN REACH AND BED ALARM ON.
[2019-02-27 04:30] VITALS: BP 89/49
--- NOTE | 2019-02-27 05:45 | NUR ---
PT AWAKE; DENIES ANY DISCOMFORT. SR PER CM. PT STATED HE DID NOT DLEEP ALL NIGHT. NEEDS MET; WILL CONTINUE TO MONITOR.
[2019-02-27 05:56] LABS: BASOPHILS 0 % (0-2); EOSINOPHILS 0 % (0-7); HEMATOCRIT 33.7 % (42.0-54.0); HEMOGLOBIN 10.8 g/dL (13.5-17.5); IMMATURE GRANULOCYTES 0.2 % (0-5); LYMPHOCYTES 3.1 % (15-50); MCH 27.6 pg (26.0-34.0); NEUTROPHILS 88.7 % (40-80); PLATELET COUNT 91 10x3/uL (130-400); RBC 3.92 10x6/uL (4.20-6.10); RDW 23.2 % (11.5-14.5); WBC 8.3 10x3/uL (4.8-10.8)
[2019-02-27 06:00] LABS: ALBUMIN 2.4 g/dL (3.4-5.0); ANION GAP 12.4 mmol/L (8-16); BILIRUBIN - TOTAL 0.88 mg/dL (0.2-1.3); CALCIUM 7.7 mg/dL (8.5-10.1); CARBON DIOXIDE 28.6 mmol/L (21.0-32.0); CREATININE - SERUM 5.7 mg/dL (0.6-1.3); PHOSPHOROUS 6.2 mg/dL (2.5-4.9); PROTEIN - SERUM 6.4 g/dL (6.4-8.2)
--- NOTE | 2019-02-27 06:24 | NUR ---
AM FSBS 44. PT REFUSED LEONARD FOR APPLE JUICE. VANILLA WAFERS GIVEN. GLUCAGON 1CC SUB-Q GIVEN TO R ABD. WILL CONTINUE TO MONITOR.
--- NOTE | 2019-02-27 07:24 | NUR ---
RECHECKED PT'S BLOOD SUGAR NOW 88. PT CONFUSED TO TIME AND SITUATION. RESP EVEN AND NONLABORED ON RA. MONITOR SHOWING SR 74. RT THUMB IV SL. LT UPPER ARM FISTULA WITH GOOD BRUIE AND TRILL NOTED. PT DENIES ANY NEEDS AT THIS TIME. CALL LIGHT IN REACH, BEDSIDE RAILS X2, NAD NOTED, WILL CONTINUE PLAN OF CARE.
--- NOTE | 2019-02-27 08:40 | NUR ---
AM MEDS GIVEN AT THIS TIME. SET PT UP FOR BREAKFAST. PT DENIES ANY NEEDS AT THIS TIME. CALL LIGHT IN REACH, NAD NOTED,W ILL CONTINUE TO MONITOR.
[2019-02-27 08:44] VITALS: BP 78/39
--- NOTE | 2019-02-27 11:14 | NUR ---
BLOOD SUGAR OF 98, NO COVERAGE NEEDED PER S/S. PT DENIES ANY NEEDS AT THIS TIME. CALL LIGHT IN REACH, NAD NOTED, WILL CONTINUE TO MONITOR.
[2019-02-27 12:08] VITALS: BP 98/62
[2019-02-27 15:50] VITALS: BP 102/66
--- NOTE | 2019-02-27 16:12 | NUR ---
BLOOD SUGAR OF 110, NO COVERAGE NEEDED PER S/S. PT RESTING COMFORTABLY IN BED, DENIES ANY NEEDS AT THIS TIME. CALL LIGHT IN REACH, NAD NOTED.
[2019-02-27 18:06] LABS: MITOCHONDRIAL ANTIBODY <20.0 Units (0.0-20.0); SMOOTH MUSCLE ABS (ACTIN) 24 Units (0-19)
[2019-02-27 19:55] VITALS: BP 93/57
--- NOTE | 2019-02-27 20:14 | NUR ---
RECIEVED LAYING IN BED WITH EYES CLOSED. EASILY AROUSES WITH VERBAL STIMULI. ORIENTED TO PERSON AND PLACE ONLY. STATING " I WANT TO GO HOME. WHATS WRONG WITH ME". EXPLAINED PLEURAL EFFUSION TO PT AND HE ASKED " WHAT DO THEY DO FOR THAT". EXPLAINED TX AND HAD NO OTHER QUESTIONS. PULLED UP IN BED BY 2 NURSES.
[2019-02-27 23:55] VITALS: BP 108/58
[2019-02-28 03:59] VITALS: BP 101/54
[2019-02-28 05:39] LABS: HEMATOCRIT 34.5 % (42.0-54.0); HEMOGLOBIN 10.9 g/dL (13.5-17.5); MCH 27.3 pg (26.0-34.0); MCHC 31.6 g/dL (31.0-37.0); MCV 86.3 fL (80.0-100.0); PLATELET COUNT 85 10x3/uL (130-400); RDW 23.1 % (11.5-14.5)
[2019-02-28 05:48] LABS: ALBUMIN 2.4 g/dL (3.4-5.0); BILIRUBIN - TOTAL 0.94 mg/dL (0.2-1.3); CALCIUM 7.7 mg/dL (8.5-10.1); CARBON DIOXIDE 26.1 mmol/L (21.0-32.0); CREATININE - SERUM 6.6 mg/dL (0.6-1.3); PHOSPHOROUS 6.3 mg/dL (2.5-4.9); POTASSIUM - SERUM 4.1 mmol/L (3.5-5.1); PROTEIN - SERUM 6.6 g/dL (6.4-8.2)
[2019-02-28 05:56] LABS: EOSINOPHILS 1 % (0-7); LYMPHOCYTES 5 % (15-50); MONOCYTES 8 % (2-11); NEUTROPHILS 82 % (40-80); PLATELET ESTIMATE DECREASED
--- NOTE | 2019-02-28 07:35 | NUR ---
ASSESSMENT COMPLETED. ALERT AT PRESENT TIME. TELEMERTY SHOWS SR AT 81. AVF TO LEFT ARM. RIGHT THUMB SL. BED ALARM TO BED. USES BEDSIDE COMMODE. WILL MONITOR
--- NOTE | 2019-02-28 07:40 | NUR ---
ASSESSMENT COMPLETED. ALERT AND ORIENTED. PD FINISHED. UP AB DONI. PD CATHER NOTED TO LEFT ABD. FAMILY AT BEDSIDE. WILL MONITOR
[2019-02-28 08:09] VITALS: BP 110/60
[2019-02-28 11:12] VITALS: BP 114/55
--- NOTE | 2019-02-28 12:32 | NUR ---
I have reviewed this patient and I concur with the Shift Assessment completed by the Licensed Practical Nurse today this shift.
[2019-02-28 16:12] VITALS: BP 106/58
--- NOTE | 2019-02-28 17:34 | NUR ---
HOB UP FOR DIET HE PUSHES THE FOOD AWAY. NO NEEDS VOICED. WILL MONITOR
[2019-02-28 20:38] VITALS: BP 76/46
--- NOTE | 2019-02-28 21:07 | NUR ---
RECIEVED UP IN BED WITH EYES CLOSED. EASILY AROUSES TO VERBAL STIMULI, FSBS 54. SNCKES GIVEN AND UP TO 74. TRIED TO GET HIM TO EAT A SANDWICH. TOOK ONLY 2 BITES. WILL RECHECK BLOOD SUGAR. INCONTINENT OF BLADDER. CHECKED AND CHANGED PRN. IV TO RIGHT THUMBWITH DSG INTACT. CHECKED FOR PATENCY. BED ALARM IN PLACE AND FUNCTIONING PROPERLY. TELEMETRY IN PLACE. AVF TO LEFT ARM WITH WHAT APPEARS TO BE TWO FISTULAS. DSG TO ONE SITE. GOOD BRUIT AND TRILL TO BOTH SITES.
[2019-02-28 23:44] VITALS: BP 82/51
[2019-03-01 04:57] VITALS: BP 88/67
[2019-03-01 05:47] LABS: BASOPHILS 0.2 % (0-2); EOSINOPHILS 0.6 % (0-7); HEMOGLOBIN 10.5 g/dL (13.5-17.5); IMMATURE GRANULOCYTES 0.3 % (0-5); LYMPHOCYTES 0.8 % (15-50); MCH 27.3 pg (26.0-34.0); MCHC 31.8 g/dL (31.0-37.0); MCV 85.7 fL (80.0-100.0); MONOCYTES 9.4 % (2-11); NEUTROPHILS 88.7 % (40-80); PLATELET COUNT 78 10x3/uL (130-400); RBC 3.85 10x6/uL (4.20-6.10); RDW 22.7 % (11.5-14.5); WBC 6.4 10x3/uL (4.8-10.8)
[2019-03-01 06:06] LABS: ALBUMIN 2.2 g/dL (3.4-5.0); BILIRUBIN - TOTAL 0.79 mg/dL (0.2-1.3); CALCIUM 7.9 mg/dL (8.5-10.1); CARBON DIOXIDE 24.9 mmol/L (21.0-32.0); CREATININE - SERUM 7.3 mg/dL (0.6-1.3); PHOSPHOROUS 6.8 mg/dL (2.5-4.9)
[2019-03-01 06:07] LABS: ANION GAP 15.9 mmol/L (8-16); POTASSIUM - SERUM 4.8 mmol/L (3.5-5.1)
--- NOTE | 2019-03-01 08:00 | NUR ---
PT RESTING IN BED WITH EYES CLOSED, SHIFT ASSESSMENT PERFORMED. DENIES ANY NEEDS AT THIS TIME, WILL CONT TO FOLLOW POC
[2019-03-01 08:23] VITALS: BP 83/43
--- NOTE | 2019-03-01 08:30 | NUR ---
PIV TO PT RIGHT THUMB INFILTRATED. PIV REMOVED WITH CATHETER TIP INTACT.
--- NOTE | 2019-03-01 09:46 | NUR ---
HIGH RISK CASE MANAGER REPORTS PT BP OF 83/43. MANUAL RECHECKED BP: 72/40. HAVE BEEN UNABLE TO REACH RENAL USPS LETTER CARRIER FOR THE PAST HOUR FOR ANOTHER PT. PLACED CALL TO . WILL CONT TO WAIT FOR FURTHER ORDERS
--- NOTE | 2019-03-01 09:57 | MORECARE ---
CASE MANAGEMENT DISCHARGE SUMMARY PATIENT: MANA SAXENA UNIT: [id number] ADM DATE: 02/24/19 AGE: 78 : 38 SEX: M ROOM/BED: D.2126 AUTHOR: BJ,DOC PHYSICIAN: REFERRING PHYSICIAN: CASEY NAIDU MD DATE OF SERVICE: 03/01/19 Discharge Plan Patient Name: MANA SAXENA Facility: [facility]:[place] : 1940 Planned Disposition: Inpatient Rehab Anticipated Discharge Date: 02/24/19 Discharge Date: Expected LOS: 1 Initial Reviewer: [id number] Initial Review Date: 02/22/2019 Generated: 03/01/19 10:57 am Comments DCP- Discharge Planning Updated by [email or web address]: Freddy Salazar on 02/26/19 12:[address] Patient Name: MANA SAXENA Encounter No: [id number] : 1940 Primary Insurance: AETNA MEDICARE PPO or HMO Anticipated DC Date: 02-24-2019 Planned Disposition: Inpatient Rehab External Planned Provider: [facility] INPATIENT REHAB DCP follow-up note: CM RECEIVED CALL FROM AYUSH OF [facility]; SHE HAD CALLED PT'S SPOUSE TO ARRANGE DELIVERY OF MANUAL WHEELCHAIR AND SPOUSE REFUSED IT STATING THAT SHE CANNOT PHYSICALLY PUSH PT IN A WHEELCHAIR AND REQEUSTED A POWER CHAIR. CM ATTEMPTED TO SEE PT'S SPOUSE IN ROOM, SHE WAS NOT THERE. CM CALLED QUEEN ODESSA, . CM INFORMED THAT AN ELECTRIC WHEELCHAIR REQUIRES VERY DETAILED AND LENGHTY DOCUMENTATION THAT CANNOT BE DONE FROM HOSPITAL, REFERRED HER TO PT'S PRIMARY CARE DOCTOR. [facility] DISCUSSED AVAILABILITY OF REHAB SERVICES, PROVIDERS AND LOCATIONS. REPORTS SHE IS OLDER THAN PT AND IS HAVING TROUBLE CARING FOR PT IN HIS WEAKENED STATE AND WOULD LIKE REHAB AT [facility] FIRST CHOICE AND [facility], [facility] THIRD BUT WILL NOT CONSIDER [place] IN [place]. CHOICE LETTER COMPLETED. CHART REVIEWED, PHYSICAL THERAPY EVALUATION STILL PENDING, NO OCCUPATIONAL THERAPY HAD BEEN ORDERED. CM OBTAINED ORDER FOR OCCUPATIONAL THERAPY EVALUATION. CM TO PROVIDE REFERRAL TO [facility] FOR INPATIENT REHAB CONSIDERATION ONCE PHYSICAL AND OCCUPATIONAL THERAPY EVALUATIONS ARE COMPLETED. FATOUMATA Alvarenga MANAGEMENT DCP- Discharge Planning Updated by [email or web address]: Freddy Salazar on 02/23/19 3:[address] Patient Name: MANA SAXENA Admission Status: ER Accout number: [id number] Admission Date: 02-22-2019 : 1940 Admission Diagnosis: Attending: CASEY NAIDU Current LOS: 1 Anticipated DC Date: 02-24-2019 Planned Disposition: Home with Home Health Primary Insurance: UNINSURED DISCOUNT PLAN PLANNED EXTERNAL PROVIDER: [facility] Discharge Planning Comments: CM RECEIVED ORDER FOR HOME HEALTH. CM MET WITH PT AND SPOUSE IN ROOM TO DISCUSS DISCHARGE PLANNING AND NEEDS. MANA SAXENA provided verbal consent to discuss current and ongoing needs with/in the presence of: SPOUSE, . ANSWERED ALL QUESTIONS. PT LIVING AT HOME DEPENDENTLY WITH SPOUSE WHO ASSISTS WITH MEDICATIONS. PT HAS BEEN GETTING WEAKER AND NOW NEEDS ASSISTANCE WITH BATHING. PT HAS WALKER WITH WHEELS, SEAT AND BRAKES AND NO MEDICAL EQUIPMENT PROVIDER PREFERENCE. PT HAS HOME HEALTH WITH [facility] FOR NURSING AND PHYSICAL THERAPY. CM DISCUSSED AVAILABILITY OF HOME HEALTH, REHAB SERVICES AND MEDICAL EQUIPMENT. PT'S SPOUSE WANTS [facility] HEALTH RESUMPTION AND REPORTS NEEDING A WHEELCHAIR PT IS NO LONGER ABLE TO CLIMB THE STEPS TO GET ON THE MEDICAID BUS FOR DIALYSIS TRANSPORTATION. PT GOES TO DIALYSIS IN [place] ON MWF SCHEDULE. PT'S FAMILY TO TRANSPORT HOME AT DISCHARGE. CHOICE SIGNED FOR [facility], CHOICE FOR NO PREFERENCE FOR MEDICAL EQUIPMENT PROVIDER COMPLETED BY [facility]. CM COLLECTED REGISTRATION INFORMATION AND FORWARDED TO [facility] OF REGISTRATION. CM SPOKE TO BOWEN TEJADA WHO PROVIDED ORDER FOR WHEELCHAIR. CM CALLED [facility], , SPOKE TO AYUSH AND PROVIDED REFERRAL INFORMATION FOR WHEELCHAIR. CM FAXED ORDER AND CHART INFORMATION TO [facility] AT [phone]. [facility] TO PROCESS ORDER FOR WHEELCHAIR DELIVERY TO PT IF QUALIFIES; PT'S INSURANCE REQUIRES PRIOR AUTHORIZATION. CM CALLED [facility], , SPOKE TO KURT, PROVIDED REFERRAL INFORMATION, PT IS ON SERVICES WITH [facility] ALREADY.. CM FAXED REFERRAL INFORMATION TO [facility], . FOR DISCHARGE, NOTIFY [facility] AT [phone]; FAX DISCHARGE INFORMATION TO [facility] AT [phone]. Appetizer Packer: Freddy Salazar DCPIA - Discharge Planning Initial Assessment Updated by [id number]: Freddy Salazar on 02/23/19 3:52 pm * Is the patient Alert and Oriented? Yes * How many steps to enter\exit or inside your home? RAMP * PCP DR. VIC PAREDES IN [place] * Pharmacy [facility] IN [place] * Preadmission Environment Home with Family * ADLs Partial Dependent * Partial ADLs (Assistance needed) Bathing Medication Management * Equipment Rolling Walker * Other Equipment ROLLING WALKER WITH SEAT AND BRAKES NO MEDICAL EQUIPMENT PROVIDER PREFERENCE * List name and contact numbers for known caregivers / representatives who currently or will assist patient after discharge: QUEEN ODESSA, SPOUSE, CADEN ANDERSON, * Verbal permission to speak to the caregivers and representatives has been obtained from the patient. Yes * Community resources currently utilized Home Health * Please name any agencies selected above. [facility], NURSING AND PHYSICAL THERAPY * Additional services required to return to the preadmission environment? No * Can the patient safely return to the preadmission environment? Yes * Has this patient been hospitalized within the prior 30 days at any hospital? Yes External Providers [facility] Next Contact Date: 03/01/2019 Service Request Date: Service Type: Resolution: Reviewer: Comments: Coverage Notice Reviewer: [email or web address] Edilia Salazar Notice Issued Date-Time: 02/23/2019 15:15 Notice Type: Patient Choice Letter Notice Delivered To: Family Member Relationship to Patient: Spouse Concrete Layer Name: QUEEN ODESSA Delivery Method: HAND - Hand Delivered Cristina Days: Prior Verbal Notification: Recipient Understood Notice: Yes Recipient Signature: Yes Med Rec Note Co-signed by Attending: Coverage Notice Comment: ANY MEDICAL EQUIPMENT COMPANY SERVICING [place] // [facility] Reviewer: [email or web address] Edilia Salazar Notice Issued Date-Time: 02/26/2019 12:00 Notice Type: Patient Choice Letter Notice Delivered To: Family Member Relationship to Patient: Spouse Concrete Layer Name: QUEEN ODESSA Delivery Method: PHONE - Phone Cristina Days: Prior Verbal Notification: Recipient Understood Notice: Yes Recipient Signature: Med Rec Note Co-signed by Attending: Coverage Notice Comment: [facility]- [facility] NOT [place]!! Last DP export: 02/26/19 12:58 pm Patient Name: MANA SAXENA Page 96527 at 0957 All edits/amendments must be made on the electronic document DICTATION DATE: 03/01/19956 LITERACY COORDINATOR: GRACE 03/01/19956 RPT#: [id number] DC DATE: STATUS: ADM IN [facility] [address] [place] [address] END OF REPORT
--- NOTE | 2019-03-01 10:10 | NUR ---
ATTEMPTED PIV INSERTION X2 WITH NO SUCCESS, ASSITED HELP OF SECOND NURSE AND WAS UNSUCCESSFUL WELL. PAGED REJI BURCH WITH VASCULAR ACCESS. STILL NO RETURN CALL FROM ARIANNE ALEX OR CHRISSY MONTALVO.
--- NOTE | 2019-03-01 10:20 | NUR ---
VASCULAR ACCESS NURSE ARRIVED AND WAS UNSUCCESSFUL X1 ATTEMPT. STATES SHE WILL GO GRAB HER ULTRASOUND MACHINE AND BE BACK. ADVISED HER THAT PT IS NEEDED FOR DIALYSIS NOW AND THAT RN WOULD CALL BACK ONCE PT ARRIVED BACK TO FLOOR
--- NOTE | 2019-03-01 10:30 | NUR ---
PT LEFT FOR DIALYSIS
--- NOTE | 2019-03-01 12:33 | NUR ---
OT NOTE: ATTEMPTED TO COMPLETE EVAL HOWEVER, PT OUT OF ROOM..ASSUME DIALYSIS. WILL ATTEMPT AGAIN TOMORROW. [employer]O [employer], OTR/L
--- NOTE | 2019-03-01 12:43 | MORECARE ---
CASE MANAGEMENT DISCHARGE SUMMARY PATIENT: MANA SAXENA UNIT: [id number] ADM DATE: 02/24/19 AGE: 78 : 38 SEX: M ROOM/BED: D.2126 AUTHOR: BJ,DOC PHYSICIAN: REFERRING PHYSICIAN: CASEY NAIDU MD DATE OF SERVICE: 03/01/19 Discharge Plan Patient Name: MANA SAXENA Facility: [facility]:[place] : 1940 Planned Disposition: Inpatient Rehab Anticipated Discharge Date: 02/24/19 Discharge Date: Expected LOS: 1 Initial Reviewer: [id number] Initial Review Date: 02/22/2019 Generated: 03/01/19 1:43 pm Comments DCP- Discharge Planning Updated by [id number]: Freddy Salazar on 03/01/19 11:[address] Patient Name: MANA SAXENA Encounter No: [id number] : 1940 Primary Insurance: AETNA MEDICARE PPO or HMO Anticipated DC Date: 02-24-2019 Planned Disposition: Inpatient Rehab External Planned Provider: [facility] INPATIENT REHAB DCP follow-up note: CM REVIEWED CHART, OCCUPATIONAL THERAPY EVALUATION HAS STILL NOT BEEN COMPLETED / DOCUMENTED. CM FAXED BASIC REFERRAL TO [facility] FOR INPATIENT REHAB CONSIDERATION AT [phone]. CM TO FAX UPDATE WITH OCCUPATIONAL THERAPY EVALUATION WHEN IT IS COMPLETED AND DOCUMENTED. Freddy Salazar CASE VERO DCP- Discharge Planning Updated by [id number]: Freddy Salazar on 02/26/19 12:[address] Patient Name: MANA SXAENA Encounter No: [id number] : 1940 Primary Insurance: AETNA MEDICARE PPO or HMO Anticipated DC Date: 02-24-2019 Planned Disposition: Inpatient Rehab External Planned Provider: [facility] INPATIENT REHAB DCP follow-up note: CM RECEIVED CALL FROM AYUSH OF [facility]; SHE HAD CALLED PT'S SPOUSE TO ARRANGE DELIVERY OF MANUAL WHEELCHAIR AND SPOUSE REFUSED IT STATING THAT SHE CANNOT PHYSICALLY PUSH PT IN A WHEELCHAIR AND REQEUSTED A POWER CHAIR. CM ATTEMPTED TO SEE PT'S SPOUSE IN ROOM, SHE WAS NOT THERE. CM CALLED [facility], . CM INFORMED THAT AN ELECTRIC WHEELCHAIR REQUIRES VERY DETAILED AND LENGHTY DOCUMENTATION THAT CANNOT BE DONE FROM HOSPITAL, REFERRED HER TO PT'S PRIMARY CARE DOCTOR. CM DISCUSSED AVAILABILITY OF REHAB SERVICES, PROVIDERS AND LOCATIONS. REPORTS SHE IS OLDER THAN PT AND IS HAVING TROUBLE CARING FOR PT IN HIS WEAKENED STATE AND WOULD LIKE REHAB AT [facility] FIRST CHOICE AND [facility], [facility] THIRD BUT WILL NOT CONSIDER [facility] IN [place]. CHOICE LETTER COMPLETED. CHART REVIEWED, PHYSICAL THERAPY EVALUATION STILL PENDING, NO OCCUPATIONAL THERAPY HAD BEEN ORDERED. CM OBTAINED ORDER FOR OCCUPATIONAL THERAPY EVALUATION. CM TO PROVIDE REFERRAL TO [facility] FOR INPATIENT REHAB CONSIDERATION ONCE PHYSICAL AND OCCUPATIONAL THERAPY EVALUATIONS ARE COMPLETED. Freddy Salazar, CASE MANAGEMENT DCP- Discharge Planning Updated by [id number]: Freddy Salazar on 02/23/19 3:[address] Patient Name: MANA SAXENA Admission Status: ER Accout number: [id number] Admission Date: 02-22-2019 : 1940 Admission Diagnosis: Attending: CASEY NAIDU Current LOS: 1 Anticipated DC Date: 02-24-2019 Planned Disposition: Home with Home Health Primary Insurance: UNINSURED DISCOUNT PLAN PLANNED EXTERNAL PROVIDER: [facility] Discharge Planning Comments: CM RECEIVED ORDER FOR HOME HEALTH. CM MET WITH PT AND SPOUSE IN ROOM TO DISCUSS DISCHARGE PLANNING AND NEEDS. MANA SAXENA provided verbal consent to discuss current and ongoing needs with/in the presence of: SPOUSE, . ANSWERED ALL QUESTIONS. PT LIVING AT HOME DEPENDENTLY WITH SPOUSE WHO ASSISTS WITH MEDICATIONS. PT HAS BEEN GETTING WEAKER AND NOW NEEDS ASSISTANCE WITH BATHING. PT HAS WALKER WITH WHEELS, SEAT AND BRAKES AND NO MEDICAL EQUIPMENT PROVIDER PREFERENCE. PT HAS HOME HEALTH WITH [facility] FOR NURSING AND PHYSICAL THERAPY. CM DISCUSSED AVAILABILITY OF HOME HEALTH, REHAB SERVICES AND MEDICAL EQUIPMENT. PT'S SPOUSE WANTS [facility] RESUMPTION AND REPORTS NEEDING A WHEELCHAIR PT IS NO LONGER ABLE TO CLIMB THE STEPS TO GET ON THE MEDICAID BUS FOR DIALYSIS TRANSPORTATION. PT GOES TO DIALYSIS IN [place] ON MWF SCHEDULE. PT'S FAMILY TO TRANSPORT HOME AT DISCHARGE. CHOICE SIGNED FOR [facility], CHOICE FOR NO PREFERENCE FOR MEDICAL EQUIPMENT PROVIDER COMPLETED BY CM. CM COLLECTED REGISTRATION INFORMATION AND FORWARDED TO [facility] OF REGISTRATION. CM SPOKE TO BOWEN TEJADA WHO PROVIDED ORDER FOR WHEELCHAIR. CM CALLED [facility], , SPOKE TO AYUSH AND PROVIDED REFERRAL INFORMATION FOR WHEELCHAIR. CM FAXED ORDER AND CHART INFORMATION TO [facility] AT [phone]. [facility]IENT TO PROCESS ORDER FOR WHEELCHAIR DELIVERY TO PT IF QUALIFIES; PT'S INSURANCE REQUIRES PRIOR AUTHORIZATION. CM CALLED [facility], , SPOKE TO KURT, PROVIDED REFERRAL INFORMATION, PT IS ON SERVICES WITH [facility]READ[facility].. CM FAXED REFERRAL INFORMATION TO [facility], . FOR DISCHARGE, NOTIFY [facility] AT [phone]; FAX DISCHARGE INFORMATION TO [facility] AT [phone]. Certified Medical Technician Assistant: Freddy Salazar DCPIA - Discharge Planning Initial Assessment Updated by AMELIA: Freddy Salazar on 02/23/19 3:52 pm * Is the patient Alert and Oriented? Yes * How many steps to enter\exit or inside your home? RAMP * PCP DR. VIC PAREDES IN [place] * [facility] [place] * Preadmission Environment Home with Family * ADLs Partial Dependent * Partial ADLs (Assistance needed) Bathing Medication Management * Equipment Rolling Walker * Other Equipment ROLLING WALKER WITH SEAT AND BRAKES NO MEDICAL EQUIPMENT PROVIDER PREFERENCE * List name and contact numbers for known caregivers / representatives who currently or will assist patient after discharge: QUEEN ODESSA, SPOUSE, IDRIS SAXENA, NIECE, * Verbal permission to speak to the caregivers and representatives has been obtained from the patient. Yes * Community resources currently utilized Home Health * Please name any agencies selected above. [facility], NURSING AND PHYSICAL THERAPY * Additional services required to return to the preadmission environment? No * Can the patient safely return to the preadmission environment? Yes * Has this patient been hospitalized within the prior 30 days at any hospital? Yes Coverage Notice Reviewer: [id number] Edilia Salazar Notice Issued Date-Time: 02/23/2019 15:15 Notice Type: Patient Choice Letter Notice Delivered To: Family Member Relationship to Patient: Spouse Door To Door Selling Distributor Name: QUEEN ODESSA Delivery Method: HAND - Hand Delivered Cristina Days: Prior Verbal Notification: Recipient Understood Notice: Yes Recipient Signature: Yes Med Rec Note Co-signed by Attending: Coverage Notice Comment: ANY MEDICAL EQUIPMENT COMPANY SERVICING [place] // [facility] Reviewer: [id number] Salazar Notice Issued Date-Time: 02/26/2019 12:00 Notice Type: Patient Choice Letter Notice Delivered To: Family Member Relationship to Patient: Spouse Door To Door Selling Distributor Name: QUEEN ODESSA Delivery Method: PHONE - Phone Cristina Days: Prior Verbal Notification: Recipient Understood Notice: Yes Recipient Signature: Med Rec Note Co-signed by Attending: Coverage Notice Comment: [facility]- [facility]-[place]!! Last DP export: 03/01/19 8:57 am Patient Name: MANA SAXENA Page [id number] at 1243 All edits/amendments must be made on the electronic document DICTATION DATE: 03/01/19 1243 MANAGER DELI: GRACE 03/01/19 1243 RPT#: [id number] DC DATE: STATUS: ADM IN [facility] [address] [place] [address] END OF REPORT
[2019-03-01 14:09] LABS: EHRLICHIA CHAFF IGG Negative (Neg:<1:64); EHRLICHIA CHAFF IGM Negative (Neg:<1:20); HGE IGG TITER Negative (Neg:<1:64); HGE IGM TITER Negative (Neg:<1:20)
--- NOTE | 2019-03-01 14:44 | NUR ---
PT TX COMPLETE. BLOOD RETURNED. STARTED OUT GIVING PT 900CC NS BOLUS PER D EDGAR WISEMAN. PT INITIAL B/P 70/42. AND ALSO HUNG IRON. PT B/P REMAINED SATISFACTORY THROUGH OUT TX.
--- NOTE | 2019-03-01 14:45 | NUR ---
PT RETURNED FROM DIALYSIS.
[2019-03-01 15:40] VITALS: BP 105/50
--- NOTE | 2019-03-01 16:03 | MORECARE ---
CASE MANAGEMENT DISCHARGE SUMMARY PATIENT: MANA SAXENA UNIT: [id number] ADM DATE: 02/24/19 AGE: 78 : 38 SEX: M ROOM/BED: D.2126 AUTHOR: BJ,DOC PHYSICIAN: REFERRING PHYSICIAN: CASEY NAIDU MD DATE OF SERVICE: 03/01/19 Discharge Plan Patient Name: MANA SAXENA Facility: [facility]:[place] : 1940 Planned Disposition: Inpatient Rehab Anticipated Discharge Date: 02/24/19 Discharge Date: Expected LOS: 1 Initial Reviewer: [id number] Initial Review Date: 02/22/2019 Generated: 03/01/19 5:03 pm Comments DCP- Discharge Planning Updated by [id number]: Freddy Salazar on 03/01/19 11:[address] Patient Name: MANA SAXENA Encounter No: [id number] : 1940 Primary Insurance: AETNA MEDICARE PPO or HMO Anticipated DC Date: 02-24-2019 Planned Disposition: Inpatient Rehab External Planned Provider: [facility] INPATIENT REHAB DCP follow-up note: CM REVIEWED CHART, OCCUPATIONAL THERAPY EVALUATION HAS STILL NOT BEEN COMPLETED / DOCUMENTED. CM FAXED BASIC REFERRAL TO [facility] FOR INPATIENT REHAB CONSIDERATION AT [phone]. CM TO FAX UPDATE WITH OCCUPATIONAL THERAPY EVALUATION WHEN IT IS COMPLETED AND DOCUMENTED. Freddy Salazar CASE VERO DCP- Discharge Planning Updated by [id number]: Freddy Salazar on 02/26/19 12:[address] Patient Name: MANA SAXENA Encounter No: [id number] : 1940 Primary Insurance: AETNA MEDICARE PPO or HMO Anticipated DC Date: 02-24-2019 Planned Disposition: Inpatient Rehab External Planned Provider: [facility] INPATIENT REH[facility] DCP follow-up note: CM RECEIVED CALL FROM AYUSH OF [facility]; SHE HAD CALLED PT'S SPOUSE TO ARRANGE DELIVERY OF MANUAL WHEELCHAIR AND SPOUSE REFUSED IT STATING THAT SHE CANNOT PHYSICALLY PUSH PT IN A WHEELCHAIR AND REQEUSTED A POWER CHAIR. CM ATTEMPTED TO SEE PT'S SPOUSE IN ROOM, SHE WAS NOT THERE. CM CALLED QUEEN ODESSA, . CM INFORMED THAT AN ELECTRIC WHEELCHAIR REQUIRES VERY DETAILED AND LENGHTY DOCUMENTATION THAT CANNOT BE DONE FROM HOSPITAL, REFERRED HER TO PT'S PRIMARY CARE DOCTOR. CM DISCUSSED AVAILABILITY OF REHAB SERVICES, PROVIDERS AND LOCATIONS. REPORTS SHE IS OLDER THAN PT AND IS HAVING TROUBLE CARING FOR PT IN HIS WEAKENED STATE AND WOULD LIKE REHAB AT [facility] FIRST CHOICE AND [facility] SECOND, [facility]IRD BUT WILL NOT CONSIDER [facility] IN [place]. CHOICE LETTER COMPLETED. CHART REVIEWED, PHYSICAL THERAPY EVALUATION STILL PENDING, NO OCCUPATIONAL THERAPY HAD BEEN ORDERED. CM OBTAINED ORDER FOR OCCUPATIONAL THERAPY EVALUATION. CM TO PROVIDE REFERRAL TO [facility] FOR INPATIENT REHAB CONSIDERATION ONCE PHYSICAL AND OCCUPATIONAL THERAPY EVALUATIONS ARE COMPLETED. Freddy Salazar, CASE MANAGEMENT DCP- Discharge Planning Updated by [id number]: Freddy Salazar on 02/23/19 3:[address] Patient Name: MANA SAXENA Admission Status: ER Accout number: [id number] Admission Date: 02-22-2019 : 1940 Admission Diagnosis: Attending: CASEY NAIDU Current LOS: 1 Anticipated DC Date: 02-24-2019 Planned Disposition: Home with Home Health Primary Insurance: UNINSURED DISCOUNT PLAN PLANNED EXTERNAL PROVIDER: [facility] Discharge Planning Comments: CM RECEIVED ORDER FOR HOME HEALTH. CM MET WITH PT AND SPOUSE IN ROOM TO DISCUSS DISCHARGE PLANNING AND NEEDS. MANA SAXENA provided verbal consent to discuss current and ongoing needs with/in the presence of: SPOUSE, . ANSWERED ALL QUESTIONS. PT LIVING AT HOME DEPENDENTLY WITH SPOUSE WHO ASSISTS WITH MEDICATIONS. PT HAS BEEN GETTING WEAKER AND NOW NEEDS ASSISTANCE WITH BATHING. PT HAS WALKER WITH WHEELS, SEAT AND BRAKES AND NO MEDICAL EQUIPMENT PROVIDER PREFERENCE. PT HAS HOME HEALTH WITH [facility] FOR NURSING AND PHYSICAL THERAPY. CM DISCUSSED AVAILABILITY OF HOME HEALTH, REHAB SERVICES AND MEDICAL EQUIPMENT. PT'S SPOUSE WANTS [facility] RESUMPTION AND REPORTS NEEDING A WHEELCHAIR PT IS NO LONGER ABLE TO CLIMB THE STEPS TO GET ON THE MEDICAID BUS FOR DIALYSIS TRANSPORTATION. PT GOES TO DIALYSIS IN [place] ON MWF SCHEDULE. PT'S FAMILY TO TRANSPORT HOME AT DISCHARGE. CHOICE SIGNED FOR [facility], CHOICE FOR NO PREFERENCE FOR MEDICAL EQUIPMENT PROVIDER COMPLETED BY CM. CM COLLECTED REGISTRATION INFORMATION AND FORWARDED TO [facility] OF REGISTRATION. CM SPOKE TO BOWEN TEJADA WHO PROVIDED ORDER FOR WHEELCHAIR. CM CALLED [facility], , SPOKE TO AYUSH AND PROVIDED REFERRAL INFORMATION FOR WHEELCHAIR. CM FAXED ORDER AND CHART INFORMATION TO [facility] AT [phone]. [facility] PATIENT TO PROCESS ORDER FOR WHEELCHAIR DELIVERY TO PT IF QUALIFIES; PT'S INSURANCE REQUIRES PRIOR AUTHORIZATION. CM CALLED [facility], , SPOKE TO KURT, PROVIDED REFERRAL INFORMATION, PT IS ON SERVICES WITH [facility]READY.. CM FAXED REFERRAL INFORMATION TO [facility], . FOR DISCHARGE, NOTIFY [facility] AT [phone]; FAX DISCHARGE INFORMATION TO [facility] AT [phone]. Pickup Driver: Freddy Salazar DCPIA - Discharge Planning Initial Assessment Updated by [id number]: Freddy Salazar on 02/23/19 3:52 pm * Is the patient Alert and Oriented? Yes * How many steps to enter\exit or inside your home? RAMP * PCP DR. VIC [facility]ES IN [place] * Pharmacy [facility] IN [place] * Preadmission Environment Home with Family * ADLs Partial Dependent * Partial ADLs (Assistance needed) Bathing Medication Management * Equipment Rolling Walker * Other Equipment ROLLING WALKER WITH SEAT AND BRAKES NO MEDICAL EQUIPMENT PROVIDER PREFERENCE * List name and contact numbers for known caregivers / representatives who currently or will assist patient after discharge: QUEEN ODESSA, SPOUSE, IDRIS SAXENA NIECE, * Verbal permission to speak to the caregivers and representatives has been obtained from the patient. Yes * Community resources currently utilized Home Health * Please name any agencies selected above. [facility], NURSING AND PHYSICAL THERAPY * Additional services required to return to the preadmission environment? No * Can the patient safely return to the preadmission environment? Yes * Has this patient been hospitalized within the prior 30 days at any hospital? Yes External Providers External Provider: [facility] Next Contact Date: 03/01/2019 Service Request Date: Service Type: Resolution: Reviewer: Comments: Coverage Notice Reviewer: [id number] - Freddy Salazar Notice Issued Date-Time: 02/23/2019 15:15 Notice Type: Patient Choice Letter Notice Delivered To: Family Member Relationship to Patient: Spouse Education Reporter Name: QUEEN ODESSA Delivery Method: HAND - Hand Delivered Cristina Days: Prior Verbal Notification: Recipient Understood Notice: Yes Recipient Signature: Yes Med Rec Note Co-signed by Attending: Coverage Notice Comment: ANY MEDICAL EQUIPMENT COMPANY SERVICING [facility]/ [facility] Reviewer: [id number] - Freddy Salazar Notice Issued Date-Time: 02/26/2019 12:00 Notice Type: Patient Choice Letter Notice Delivered To: Family Member Relationship to Patient: Spouse Education Reporter Name: QUEEN ODESSA Delivery Method: PHONE - Phone Cristina Days: Prior Verbal Notification: Recipient Understood Notice: Yes Recipient Signature: Med Rec Note Co-signed by Attending: Coverage Notice Comment: [facility] [id number]!! Last DP export: 03/01/19 11:43 am Patient Name: MANA SAXENA Page [id number] at 1603 All edits/amendments must be made on the electronic document DICTATION DATE: 03/01/19 160 AWNING CRAFTSPERSON: GRACE 03/01/19 160 RPT#: [id number] DC DATE: STATUS: ADM IN [facility] [address] [place] [address] END OF REPORT
--- NOTE | 2019-03-01 16:07 | NUR ---
CALLED VASCULAR ACCESS NURSE, VASCULAR ACCESS NURSE STATED SHE COULD NOT TALK AT THE MOMENT AND WOULD CALL BACK.
--- NOTE | 2019-03-01 16:18 | MORECARE ---
CASE MANAGEMENT DISCHARGE SUMMARY PATIENT: MANA SAXENA UNIT: [id number] ADM DATE: 02/24/19 AGE: 78 : 38 SEX: M ROOM/BED: D.2126 AUTHOR: BJ,DOC PHYSICIAN: REFERRING PHYSICIAN: CASEY NAIDU MD DATE OF SERVICE: 03/01/19 Discharge Plan Patient Name: MANA SAXENA Facility: [facility]:[place] : 1940 Planned Disposition: Inpatient Rehab Anticipated Discharge Date: 02/24/19 Discharge Date: Expected LOS: 1 Initial Reviewer: [id number] Initial Review Date: 02/22/2019 Generated: 03/01/19 5:18 pm Comments DCP- Discharge Planning Updated by [id number]: Freddy Salazar on 03/01/19 3:[address] Patient Name: MANA SAXENA Encounter No: [id number] : 1940 Primary Insurance: AETNA MEDICARE PPO or HMO Anticipated DC Date: 02-24-2019 Planned Disposition: Inpatient Rehab External Planned Provider: [facility] INPATIENT REHAB DCP follow-up note: CM REVIEWED CHART, OCCUPATIONAL THERAPY EVALUATION HAS STILL NOT BEEN COMPLETED / DOCUMENTED. CM FAXED BASIC REFERRAL TO [facility] FOR INPATIENT REHAB CONSIDERATION AT [phone]. CM TO FAX UPDATE WITH OCCUPATIONAL THERAPY EVALUATION WHEN IT IS COMPLETED AND DOCUMENTED. Freddy Salazar, CASE MANAGEMENT Appended by Freddy Salazar on 03/01/2019 16:14 CDT: HODA REVIEWED CHART, PT REFUSED PHYSICAL THERAPY TODAY AND THERAPY HAS SIGNED OFF DUE TO PT REFUSAL. OCCUPATIONAL THERAPY EVALUATION STILL NOT COMPLETED. IT IS CM'S EXPERIENCE THAT INSURANCE WILL NOT PAY FOR REHAB SERVICES UNLESS PT IS PARTICIPATING, WHICH THIS PT IS NOT. CM SPOKE TO PT IN ROOM WHO REPORTS HE DID NOT UNDERSTAND; PT STATES HE IS GOING HOME. WHEN CM EXPLAINED IN SLOW DETAIL THAT PT'S SPOUSE WANTS HIM TO GO TO REHAB, PT YELLS AT CM THAT SOMETHING MUST BE WRONG AND TO CALL . CM CALLED QUEEN ODESSA, SPOUSE, , LEFT MESSAGE ASKING FOR RETURN CALL. CM FAXED REFERRAL TO [facility] IN [place] THAT THEY CAN GET AUTHORIZATION FOR REHAB WITH PT'S REFUSAL TO DO THERAPY OR AT LEAST CONSIDER FOR PRISON CARE. CM WAITING RETURN CALL FROM PT'S SPOUSE, QUEEN ODESSA. CM WAITING ADMISSION DETERMINATION FROM [facility] OR REHAB OR [facility]. FATOUMATA BHATT MANAGEMENT DCP- Discharge Planning Updated by [id number]: Freddy Salazar on 02/26/19 12:[address] Patient Name: MANA SAXENA Encounter No: [id number] : 1940 Primary Insurance: AETNA MEDICARE PPO or HMO Anticipated DC Date: 02-24-2019 Planned Disposition: Inpatient Rehab External Planned Provider: [facility] INPATIENT REHAB DCP follow-up note: CM RECEIVED CALL FROM AYUSH OF [facility]; SHE HAD CALLED PT'S SPOUSE TO ARRANGE DELIVERY OF MANUAL WHEELCHAIR AND SPOUSE REFUSED IT STATING THAT SHE CANNOT PHYSICALLY PUSH PT IN A WHEELCHAIR AND REQEUSTED A POWER CHAIR. CM ATTEMPTED TO SEE PT'S SPOUSE IN ROOM, SHE WAS NOT THERE. CM CALLED QUEEN ODESSA, . CM INFORMED THAT AN ELECTRIC WHEELCHAIR REQUIRES VERY DETAILED AND LENGHTY DOCUMENTATION THAT CANNOT BE DONE FROM HOSPITAL, REFERRED HER TO PT'S PRIMARY CARE DOCTOR. CM DISCUSSED AVAILABILITY OF REHAB SERVICES, PROVIDERS AND LOCATIONS. REPORTS SHE IS OLDER THAN PT AND IS HAVING TROUBLE CARING FOR PT IN HIS WEAKENED STATE AND WOULD LIKE REHAB AT [facility] FIRST CHOICE AND [facility] SECOND, [facility] THIRD BUT WILL NOT CONSIDER [facility] IN [place]. CHOICE LETTER COMPLETED. CHART REVIEWED, PHYSICAL THERAPY EVALUATION STILL PENDING, NO OCCUPATIONAL THERAPY HAD BEEN ORDERED. CM OBTAINED ORDER FOR OCCUPATIONAL THERAPY EVALUATION. CM TO PROVIDE REFERRAL TO [facility] FOR INPATIENT REHAB CONSIDERATION ONCE PHYSICAL AND OCCUPATIONAL THERAPY EVALUATIONS ARE COMPLETED. FATOUMATA Bhatt DCP- Discharge Planning Updated by [id number]: Freddy Salazar on 02/23/19 3:[address] Patient Name: MANA SAXENA Admission Status: ER Accout number: [id number] Admission Date: 02-22-2019 : 1940 Admission Diagnosis: Attending: CASEY NAIDU Current LOS: 1 Anticipated DC Date: 02-24-2019 Planned Disposition: Home with Home Health Primary Insurance: UNINSURED DISCOUNT PLAN PLANNED EXTERNAL PROVIDER: [facility] Discharge Planning Comments: CM RECEIVED ORDER FOR HOME HEALTH. CM MET WITH PT AND SPOUSE IN ROOM TO DISCUSS DISCHARGE PLANNING AND NEEDS. MANA SAXENA provided verbal consent to discuss current and ongoing needs with/in the presence of: SPOUSE, . ANSWERED ALL QUESTIONS. PT LIVING AT HOME DEPENDENTLY WITH SPOUSE WHO ASSISTS WITH MEDICATIONS. PT HAS BEEN GETTING WEAKER AND NOW NEEDS ASSISTANCE WITH BATHING. PT HAS WALKER WITH WHEELS, SEAT AND BRAKES AND NO MEDICAL EQUIPMENT PROVIDER PREFERENCE. PT HAS HOME HEALTH WITH [facility] FOR NURSING AND PHYSICAL THERAPY. CM DISCUSSED AVAILABILITY OF HOME HEALTH, REHAB SERVICES AND MEDICAL EQUIPMENT. PT'S SPOUSE WANTS [facility] RESUMPTION AND REPORTS NEEDING A WHEELCHAIR PT IS NO LONGER ABLE TO CLIMB THE STEPS TO GET ON THE MEDICAID BUS FOR DIALYSIS TRANSPORTATION. PT GOES TO DIALYSIS IN [place] ON MWF SCHEDULE. PT'S FAMILY TO TRANSPORT HOME AT DISCHARGE. CHOICE SIGNED FOR [facility], CHOICE FOR NO PREFERENCE FOR MEDICAL EQUIPMENT PROVIDER COMPLETED BY CM. CM COLLECTED REGISTRATION INFORMATION AND FORWARDED TO [facility] OF REGISTRATION. CM SPOKE TO BOWEN TEJADA WHO PROVIDED ORDER FOR WHEELCHAIR. CM CALLED [facility], , SPOKE TO AYUSH AND PROVIDED REFERRAL INFORMATION FOR WHEELCHAIR. CM FAXED ORDER AND CHART INFORMATION TO [facility] AT [phone]. [facility] PATIENT TO PROCESS ORDER FOR WHEELCHAIR DELIVERY TO PT IF QUALIFIES; PT'S INSURANCE REQUIRES PRIOR AUTHORIZATION. CM CALLED [facility], , SPOKE TO KURT, PROVIDED REFERRAL INFORMATION, PT IS ON SERVICES WITH [facility] ALREADY.. CM FAXED REFERRAL INFORMATION TO [facility], . FOR DISCHARGE, NOTIFY [facility] AT [phone]; FAX DISCHARGE INFORMATION TO [facility] AT [phone]. Mold Yarn Supervisor: Freddy Salazar DCPIA - Discharge Planning Initial Assessment Updated by [id number]: Freddy Salazar on 02/23/19 3:52 pm * Is the patient Alert and Oriented? Yes * How many steps to enter\exit or inside your home? RAMP * PCP DR. VIC PAREDES IN [place] * Pharmacy [facility] IN [place] * Preadmission Environment Home with Family * ADLs Partial Dependent * Partial ADLs (Assistance needed) Bathing Medication Management * Equipment Rolling Walker * Other Equipment ROLLING WALKER WITH SEAT AND BRAKES NO MEDICAL EQUIPMENT PROVIDER PREFERENCE * List name and contact numbers for known caregivers / representatives who currently or will assist patient after discharge: QUEEN ODESSA, SPOUSE, IDRIS SAXENA, NIECE, * Verbal permission to speak to the caregivers and representatives has been obtained from the patient. Yes * Community resources currently utilized Home Health * Please name any agencies selected above. [facility], NURSING AND PHYSICAL THERAPY * Additional services required to return to the preadmission environment? No * Can the patient safely return to the preadmission environment? Yes * Has this patient been hospitalized within the prior 30 days at any hospital? Yes Coverage Notice Reviewer: [id number] Salazar Notice Issued Date-Time: 02/23/2019 15:15 Notice Type: Patient Choice Letter Notice Delivered To: Family Member Relationship to Patient: Spouse Hired Hand Name: QUEEN ODESSA Delivery Method: HAND - Hand Delivered Cristina Days: Prior Verbal Notification: Recipient Understood Notice: Yes Recipient Signature: Yes Med Rec Note Co-signed by Attending: Coverage Notice Comment: ANY MEDICAL EQUIPMENT COMPANY SERVICING [place] // [facility] Reviewer: [id number] Edilia Salazar Notice Issued Date-Time: 02/26/2019 12:00 Notice Type: Patient Choice Letter Notice Delivered To: Family Member Relationship to Patient: Spouse Hired Hand Name: QUEEN ODESSA Delivery Method: PHONE - Phone Cristina Days: Prior Verbal Notification: Recipient Understood Notice: Yes Recipient Signature: Med Rec Note Co-signed by Attending: Coverage Notice Comment: [facility]- [facility] 3-[facility] NOT [facility]!! Last DP export: 03/01/19 3:03 pm Patient Name: MANA SAXENA Page [id number] at 1618 All edits/amendments must be made on the electronic document DICTATION DATE: 03/01/19 1618 PRESIDING JUDGE: GRACE 03/01/191617 RPT#: [id number] DC DATE: STATUS: ADM IN [facility] [address] [place] [address] END OF REPORT
--- NOTE | 2019-03-01 19:11 | NUR ---
RECIEVED LAYING IN BED WITH EYES CLOSED. EASILY AROUSES WITH VERBAL STIMULI. CONFUSED TO TIME AND SITUATION. CONT TO BE INCONT OF URINE. NO IV AT THIS TIME. REPORTED VENOUS ACCESS NURSE AWARE. NO S/S OF DISTRESS OBSERVED.
[2019-03-01 20:18] VITALS: BP 123/68
[2019-03-02] VITALS (26 sets, daily range): BP systolic 67–133; BP diastolic 38–70
[2019-03-02 06:49] LABS: ALBUMIN 1.7 g/dL (3.4-5.0); ANION GAP 13.6 mmol/L (8-16); BILIRUBIN - TOTAL 0.65 mg/dL (0.2-1.3); CALCIUM 7.3 mg/dL (8.5-10.1); CARBON DIOXIDE 26.5 mmol/L (21.0-32.0); CREATININE - SERUM 5.1 mg/dL (0.6-1.3); PHOSPHOROUS 4.5 mg/dL (2.5-4.9); POTASSIUM - SERUM 4.1 mmol/L (3.5-5.1); PROTEIN - SERUM 4.9 g/dL (6.4-8.2)
--- NOTE | 2019-03-02 06:49 | NUR ---
PT HAS HAD 3 LARGE WATERERY STOOLS THAT ARE DARK WITH RED TINGE. NEW ORDER FOR OCCULT STOOL ORDERED. RESULTS RECIEVED AND ARE POSITIVE. AWAITING CBC RESULTS AND BOWEN HERNÁNDEZ GAVE ORDER FOR STAT INR AND CONSULT GI FOR GI BLEED.
[2019-03-02 07:16] LABS: HEMATOCRIT 26.7 % (42.0-54.0); MCH 27.1 pg (26.0-34.0); MCHC 30.7 g/dL (31.0-37.0); PLATELET COUNT 89 10x3/uL (130-400); RDW 23.4 % (11.5-14.5); WBC 7.9 10x3/uL (4.8-10.8)
[2019-03-02 07:22] LABS: HEMOGLOBIN 8.2 g/dL (13.5-17.5); MCV 88.1 fL (80.0-100.0); RBC 3.03 10x6/uL (4.20-6.10)
--- NOTE | 2019-03-02 07:23 | NUR ---
ROUNDING DONE WITH PATIENT BEING ON HEART MONITOR, SR, HR 88. RESE. LEFT ARM WITH AVF + BRUIT AND THRILL. NO IV ACCESS. IN REPORT, PATIENT HAD 3 BLOODY STOOLS. AWAITING PT INR RESULTS. ON ROOM AIR. PATIENT IS VERY HARD OF HEARING. HAD DIALYSIS YESTERDAY. AUGIE MAT ALARM ON AND IN USE. VICOTR MANUEL ROBLES, RN TO LOOK FOR IV ACCESS, DID NOT SEE ANYTHING. STEFANY WILSON NURSE WILL BE CALLED AGAIN, DID NOT SHOW YESTERDAY FOR IV ACCESS.
[2019-03-02 08:04] LABS: INR 1.8 (0.85-1.17); PROTIME 20.2 SECONDS (11.6-15.0)
--- NOTE | 2019-03-02 08:14 | NUR ---
ASSSITED PATIENT X 2 TO [facility]. APPROC 200 CC LIQUID DARK STOOL WITH NATALIE BLOOD. REJI ENGLISH RN VASCULAER NURSE HERE TO SITE IV. [facility] APN HERE ON FLOOR AND NOTIFIED OF THIS.
--- NOTE | 2019-03-02 08:32 | NUR ---
B/P 79/42. I CALLED [facility] AP[facility] FOR NEW ORDERS, NEW ORDERS RECEIVED. VICTOR MANUEL ROBLES [facility]
--- NOTE | 2019-03-02 08:36 | NUR ---
REJI ENGLISH, FERTILIZER APPLICATOR NURSE UNABLE TO GET IV EVEN WITH ULTRASOUND. CONSULT FOR [facility].
--- NOTE | 2019-03-02 08:43 | NUR ---
I TRIED TO CALL THE SPOUSE () BUT HER VOICEMAIL IS NOT SET UP.
--- NOTE | 2019-03-02 08:52 | NUR ---
CALLED REPORT TO [facility].
--- NOTE | 2019-03-02 09:12 | NUR ---
TRANSFERRED TO ICU VIA BED AND PORTABLE OXYGEN.
[2019-03-02 09:29] LABS: ACANTHOCYTES OCC; ANISOCYTOSIS OCC; CRENATED CELLS OCC; HYPOCHROMASIA OCC; LYMPHOCYTES 4 % (15-50); MONOCYTES 7 % (2-11); NEUTROPHILS 89 % (40-80); PLATELET ESTIMATE DECREASED; SCHISTOCYTES OCC
[2019-03-02 10:08] LABS: HEMATOCRIT 24.7 % (42.0-54.0); HEMOGLOBIN 7.7 g/dL (13.5-17.5)
--- NOTE | 2019-03-02 11:32 | MORECARE ---
CASE MANAGEMENT DISCHARGE SUMMARY PATIENT: MANA SAXENA UNIT: [id number] ADM DATE: 02/24/19 AGE: 78 : 38 SEX: M ROOM/BED: D.2310 AUTHOR: BJDOC PHYSICIAN: REFERRING PHYSICIAN: CASEY NAIDU MD DATE OF SERVICE: 03/02/19 Discharge Plan Patient Name: MANA SAXENA Facility: [facility]:[place] : 1940 Planned Disposition: Inpatient Rehab Anticipated Discharge Date: 02/24/19 Discharge Date: Expected LOS: 1 Initial Reviewer: [id number] Initial Review Date: 02/22/2019 Generated: 03/02/19 12:32 pm Comments DCP- Discharge Planning Updated by [id number]: Ibrahima Nelson on 03/02/19 10:[address] Patient Name: MANA SAXENA Encounter No: [id number] : 1940 Primary Insurance: AETNA MEDICARE PPO or HMO Anticipated DC Date: 02-24-2019 Planned Disposition: Inpatient Rehab External Planned Provider: [facility] INPATIENT REHAB DCP follow-up note: CM RECEIVED CALL FROM IAN OF [facility], THEY HAVE ACCEPTED MEDICALLY AND WILL SUBMIT TO INSURANCE FOR AUTHORIZATION FOR INPATIENT REHAB SERVICES. CM ADVISED THAT PT HAD MOVED TO ICU THIS MORNING AND THAT PT HAS BEEN REFUSING THERAPY SERVICES AND FURTHER THAT OCCUPATIONAL THERAPY EVALUATION HAS NOT YET BEEN COMPLETED. IAN WILL FOLLOW UP WITH CALL TO PT'S TO DISCUSS COMPLIANCE WITH THERAPY SERVICES TO SEE IF THE SPOUSE CAN SPEAK TO PT. CM WAITING RETURN CALL FROM PT'S SPOUSE, QUEEN ODESSA. [facility] WILL SUBMIT TO PT'S INSURANCE COMPANY FOR INPATIENT REHAB AUTHORIZATION WHEN OCCUPATIONAL THERAPY EVALUATION HAS BEEN COMPLETED AND RECEIVED. CM WAITING ADMISSION DETERMINATION FROM [facility] AND [facility] OR REHAB OR [facility]. PT WILL NEED TO HAVE INSURANCE AUTHORIZATION WHEN OCCUPATIONAL THERAPY EVALUATION HAS BEEN COMPLETED AND RECEIVED BY [facility]. FATOUMATA BHATT MANAGEMENT DCP- Discharge Planning Updated by [id number]: Ibrahima Nelson on 03/01/19 3:[address] Patient Name: MANA SAXENA Encounter No: [id number] : 1940 Primary Insurance: AETNA MEDICARE PPO or HMO Anticipated DC Date: 02-24-2019 Planned Disposition: Inpatient Rehab External Planned Provider: [facility] INPATIENT REHAB DCP follow-up note: CM REVIEWED CHART, OCCUPATIONAL THERAPY EVALUATION HAS STILL NOT BEEN COMPLETED / DOCUMENTED. CM FAXED BASIC REFERRAL TO [facility] FOR INPATIENT REHAB CONSIDERATION AT [phone]. CM TO FAX UPDATE WITH OCCUPATIONAL THERAPY EVALUATION WHEN IT IS COMPLETED AND DOCUMENTED. Ibrahima Nelson, CASE MANAGEMENT Appended by Ibrahima Nelson on 03/01/2019 16:14 CDT: CM REVIEWED CHART, PT REFUSED PHYSICAL THERAPY TODAY AND THERAPY HAS SIGNED OFF DUE TO PT REFUSAL. OCCUPATIONAL THERAPY EVALUATION STILL NOT COMPLETED. IT IS CM'S EXPERIENCE THAT INSURANCE WILL NOT PAY FOR REHAB SERVICES UNLESS PT IS PARTICIPATING, WHICH THIS PT IS NOT. CM SPOKE TO PT IN ROOM WHO REPORTS HE DID NOT UNDERSTAND; PT STATES HE IS GOING HOME. WHEN CM EXPLAINED IN SLOW DETAIL THAT PT'S SPOUSE WANTS HIM TO GO TO REHAB, PT YELLS AT THAT SOMETHING MUST BE WRONG AND TO CALL [facility]. CM CALLED QUEEN ODESSA, SPOUSE, , LEFT MESSAGE ASKING FOR RETURN CALL. CM FAXED REFERRAL TO [facility] [place] THAT THEY CAN GET AUTHORIZATION FOR REHAB WITH PT'S REFUSAL TO DO THERAPY OR AT LEAST CONSIDER FOR ALF CARE. CM WAITING RETURN CALL FROM PT'S SPOUSE, QUEEN ODESSA. CM WAITING ADMISSION DETERMINATION FROM [facility] OR REHAB OR ALF CARE. IBRAHIMA NELSON, CASE MANAGEMENT DCP- Discharge Planning Updated by [id number]: Ibrahima Nelson on 02/26/19 12:[address] Patient Name: MANA SAXENA Encounter No: [id number] : 1940 Primary Insurance: AETNA MEDICARE PPO or HMO Anticipated DC Date: 02-24-2019 Planned Disposition: Inpatient Rehab External Planned Provider: [facility] INPATIENT REHAB DCP follow-up note: CM RECEIVED CALL FROM AYUSH OF [facility]; SHE HAD CALLED PT'S SPOUSE TO ARRANGE DELIVERY OF MANUAL WHEELCHAIR AND SPOUSE REFUSED IT STATING THAT SHE CANNOT PHYSICALLY PUSH PT IN A WHEELCHAIR AND REQEUSTED A POWER CHAIR. CM ATTEMPTED TO SEE PT'S SPOUSE IN ROOM, SHE WAS NOT THERE. CM CALLED QUEEN ODESSA, . CM INFORMED THAT AN ELECTRIC WHEELCHAIR REQUIRES VERY DETAILED AND LENGHTY DOCUMENTATION THAT CANNOT BE DONE FROM HOSPITAL, REFERRED HER TO PT'S PRIMARY CARE DOCTOR. CM DISCUSSED AVAILABILITY OF REHAB SERVICES, PROVIDERS AND LOCATIONS. REPORTS SHE IS OLDER THAN PT AND IS HAVING TROUBLE CARING FOR PT IN HIS WEAKENED STATE AND WOULD LIKE REHAB AT [facility] FIRST CHOICE AND [facility] SECOND, [facility] THIRD BUT WILL NOT CONSIDER [facility] IN [place]. CHOICE LETTER COMPLETED. CHART REVIEWED, PHYSICAL THERAPY EVALUATION STILL PENDING, NO OCCUPATIONAL THERAPY HAD BEEN ORDERED. CM OBTAINED ORDER FOR OCCUPATIONAL THERAPY EVALUATION. CM TO PROVIDE REFERRAL TO [facility] FOR INPATIENT REHAB CONSIDERATION ONCE PHYSICAL AND OCCUPATIONAL THERAPY EVALUATIONS ARE COMPLETED. Ibrahima Nelson, CASE MANAGEMENT DCP- Discharge Planning Updated by [id number]: Ibrahima Nelson on 02/23/19 3:[address] Patient Name: MANA SAXENA Admission Status: ER Accout number: [id number] Admission Date: 02-22-2019 : 1940 Admission Diagnosis: Attending: CASEY NAIDU Current LOS: 1 Anticipated DC Date: 02-24-2019 Planned Disposition: Home with Home Health Primary Insurance: UNINSURED DISCOUNT PLAN PLANNED EXTERNAL PROVIDER: [facility] Discharge Planning Comments: CM RECEIVED ORDER FOR HOME HEALTH. CM MET WITH PT AND SPOUSE IN ROOM TO DISCUSS DISCHARGE PLANNING AND NEEDS. MANA SAXENA provided verbal consent to discuss current and ongoing needs with/in the presence of: SPOUSE, . ANSWERED ALL QUESTIONS. PT LIVING AT HOME DEPENDENTLY WITH SPOUSE WHO ASSISTS WITH MEDICATIONS. PT HAS BEEN GETTING WEAKER AND NOW NEEDS ASSISTANCE WITH BATHING. PT HAS WALKER WITH WHEELS, SEAT AND BRAKES AND NO MEDICAL EQUIPMENT PROVIDER PREFERENCE. PT HAS HOME HEALTH WITH [facility] FOR NURSING AND PHYSICAL THERAPY. CM DISCUSSED AVAILABILITY OF HOME HEALTH, REHAB SERVICES AND MEDICAL EQUIPMENT. PT'S SPOUSE WANTS [facility] RESUMPTION AND REPORTS NEEDING A WHEELCHAIR PT IS NO LONGER ABLE TO CLIMB THE STEPS TO GET ON THE MEDICAID BUS FOR DIALYSIS TRANSPORTATION. PT GOES TO DIALYSIS IN [place] ON MWF SCHEDULE. PT'S FAMILY TO TRANSPORT HOME AT DISCHARGE. CHOICE SIGNED FOR [facility], CHOICE FOR NO PREFERENCE FOR MEDICAL EQUIPMENT PROVIDER COMPLETED BY CM. CM COLLECTED REGISTRATION INFORMATION AND FORWARDED TO [facility] OF REGISTRATION. CM SPOKE TO BOWEN TEJADA WHO PROVIDED ORDER FOR WHEELCHAIR. CM CALLED [facility], , SPOKE TO AYUSH AND PROVIDED REFERRAL INFORMATION FOR WHEELCHAIR. CM FAXED ORDER AND CHART INFORMATION TO [facility] AT [phone]. [facility]IENT TO PROCESS ORDER FOR WHEELCHAIR DELIVERY TO PT IF QUALIFIES; PT'S INSURANCE REQUIRES PRIOR AUTHORIZATION. CM CALLED [facility], , SPOKE TO KURT, PROVIDED REFERRAL INFORMATION, PT IS ON SERVICES WITH [facility]READ[facility].. CM FAXED REFERRAL INFORMATION TO [facility], . FOR DISCHARGE, NOTIFY [facility] AT [phone]; FAX DISCHARGE INFORMATION TO [facility] AT [phone]. Senior Web Analyst: Ibrahima Nelson DCPIA - Discharge Planning Initial Assessment Updated by AMELIA: Ibrahima Nelson on 02/23/19 3:52 pm * Is the patient Alert and Oriented? Yes * How many steps to enter\exit or inside your home? RAMP * PCP DR. VIC PAREDES IN [place] * Pharmacy [facility] IN [place] * Preadmission Environment Home with Family * ADLs Partial Dependent * Partial ADLs (Assistance needed) Bathing Medication Management * Equipment Rolling Walker * Other Equipment ROLLING WALKER WITH SEAT AND BRAKES NO MEDICAL EQUIPMENT PROVIDER PREFERENCE * List name and contact numbers for known caregivers / representatives who currently or will assist patient after discharge: QUEEN ODESSA, SPOUSE, IDRIS SAXENA, NIECE, * Verbal permission to speak to the caregivers and representatives has been obtained from the patient. Yes * Community resources currently utilized Home Health * Please name any agencies selected above. [facility], NURSING AND PHYSICAL THERAPY * Additional services required to return to the preadmission environment? No * Can the patient safely return to the preadmission environment? Yes * Has this patient been hospitalized within the prior 30 days at any hospital? Yes Coverage Notice Reviewer: [id number] Edilia Nelson Notice Issued Date-Time: 02/23/2019 15:15 Notice Type: Patient Choice Letter Notice Delivered To: Family Member Relationship to Patient: Spouse Wood Pattern Maker Name: QUEEN ODESAS Delivery Method: HAND - Hand Delivered Cristina Days: Prior Verbal Notification: Recipient Understood Notice: Yes Recipient Signature: Yes Med Rec Note Co-signed by Attending: Coverage Notice Comment: ANY MEDICAL EQUIPMENT COMPANY SERVICING [place] // [facility] Reviewer: [id number] Nelson Notice Issued Date-Time: 02/26/2019 12:00 Notice Type: Patient Choice Letter Notice Delivered To: Family Member Relationship to Patient: Spouse Wood Pattern Maker Name: QUEEN ODESSA Delivery Method: PHONE - Phone Cristina Days: Prior Verbal Notification: Recipient Understood Notice: Yes Recipient Signature: Med Rec Note Co-signed by Attending: Coverage Notice Comment: [facility]- [facility] 3-[facility] NOT [place]!! Last DP export: 03/01/19 3:18 pm Patient Name: MANA SAXENA Page [id number] at 1132 All edits/amendments must be made on the electronic document DICTATION DATE: 03/02/19 113 ICEBOX MAN: GRACE 03/02/19 1131 RPT#: [id number] DC DATE: STATUS: ADM IN [facility] [address] [place] [address] END OF REPORT
--- NOTE | 2019-03-02 11:49 | NUR ---
OK TO USE CVL PER DR. MARSHALL
--- NOTE | 2019-03-02 13:27 | NUR ---
Nutrition Follow Up: Reviewed chart Pt is on a Renal ADA diet with poor po intake several days Pt has food preferences noted and supplements ordered Pt had a GI bleed this morning and transferred to ICU Recommend a liberalized diet and if medically feasible may want to consider alternate nutrition support RD following
--- NOTE | 2019-03-02 15:16 | NUR ---
Nutrition Follow Up: Pt moved to the ICU Now NPO Prior to NPO status pt had poor po intake several days on Renal ADA diet Will monitor RD following
[2019-03-02 16:46] LABS: HEMATOCRIT 29.9 % (42.0-54.0); HEMOGLOBIN 9.5 g/dL (13.5-17.5)
--- NOTE | 2019-03-02 19:31 | NUR ---
1 UNIT OF PRBC INITIATED FOR HCT 20 PER ABG. VSS.
--- NOTE | 2019-03-02 19:35 | NUR ---
REPORT RECEIVED. RECEIVED PATIENT IN BED, INTUBATED. ETT INTACT/PATENT/ SECURE AND CONNECTED TO MECHANICAL VENTILATION AT ORDERED SETTINGS. HOB UP 40 DEGREES. OGT INTACT/SECURE/PATENT CONNECTED TO LIT SUCTION DRAINING BRIGHT RED BLOOD INTO COLLECTION CHAMBER. ABD ROUND AND SOFT WITH BOWEL SOUNDS X 4. SHIFT ASSESSMENT COMPLETED PER FLOW SHEET. MONITORS CONNECTED TO PATIENT WITH ALARMS SET. VSS. NO ACUTE DISTRESS OBSERVED AT THIS TIME. SCANT AMOUNT OF BRIGHT RED BLEEDING FROM RT NARE/ PRESSURE HELD AND PACKED WITH GAUZE. WILL MONITOR.
--- NOTE | 2019-03-02 19:42 | NUR ---
0915 RECEIVED FROM [facility] WITH C/O TARRY BLACK STOOLS
--- NOTE | 2019-03-02 20:02 | NUR ---
0915 ARRIVED TO [place] [id number] FROM 2125 AT 2L/NC NO DISTRESS NOTED
--- NOTE | 2019-03-02 20:07 | NUR ---
2272 DR JORDAN HAS BEEN NOTIFIED OF CONSULT
--- NOTE | 2019-03-02 20:08 | NUR ---
1245 LYN 1ST UNIT PRBC
--- NOTE | 2019-03-02 20:09 | NUR ---
1430 PRBC 2ND UNIT STARTED
--- NOTE | 2019-03-02 20:11 | NUR ---
1545 EGD COMPLETE UNDER ANESTHESIA
--- NOTE | 2019-03-02 20:14 | NUR ---
1700 INTUBATED IN ROOM STARTED #2 FFP. TRANSPORTED TO IR FOR ANGIOGRAMS PER DR LEE
--- NOTE | 2019-03-02 20:15 | NUR ---
1730 PLATLETS STARTED IN IR
--- NOTE | 2019-03-02 20:16 | NUR ---
1835 RETURNED TO ICU ROOM NO DISTRESS NOTED. DR Migdalia MALDONADO, ANESTHESIA SAID ETT PLACEMENT VERIFIED PER RACHAEL
--- NOTE | 2019-03-02 21:00 | NUR ---
PRBC INFUSING. VSS. BP 113/55. NO ACUTE DISTRESS OBSERVED AT THIS TIME.
--- NOTE | 2019-03-02 23:00 | NUR ---
REASSESSMENT COMPLETED PER FLOW SHEET WITH NO CHANGES OR ACUTE DISTRESS OBSERVED. VSS
[2019-03-03] VITALS (31 sets, daily range): BP systolic 91–139; BP diastolic 52–97
--- NOTE | 2019-03-03 01:00 | NUR ---
RESTING WITH EYES CLOSED/ SEDATED. OPENS EYES TO VERBAL STIMULI. VSS. NO ACUTE DISTRESS OBSERVED AT PRESENT
[2019-03-03 01:35] LABS: HEMOGLOBIN 10.4 g/dL (13.5-17.5)
--- NOTE | 2019-03-03 03:00 | NUR ---
REASSESSMENT COMPLETED PER FLOW SHEET WITH NO CHANGES OR ACUTE DISTRESS OBSERVED. VSS. HOB UP 40 DEGREES
--- NOTE | 2019-03-03 05:00 | NUR ---
RESTING WITH EYES CLOSED/ SEDATED. ROUSES TO VERBAL STIMULI. VSS. NO ACUTE DISTRESS OBSERVED.
[2019-03-03 05:41] LABS: BASOPHILS 0 % (0-2); EOSINOPHILS 0.5 % (0-7); HEMATOCRIT 28.8 % (42.0-54.0); HEMOGLOBIN 10.3 g/dL (13.5-17.5); IMMATURE GRANULOCYTES 0.4 % (0-5); LYMPHOCYTES 4.3 % (15-50); MCH 29.3 pg (26.0-34.0); MCHC 35.8 g/dL (31.0-37.0); MEAN PLATELET VOLUME 11.3 fL (7.4-10.4); MONOCYTES 9.8 % (2-11); RBC 3.51 10x6/uL (4.20-6.10); RDW 15.9 % (11.5-14.5)
[2019-03-03 05:44] LABS: MCV 82.1 fL (80.0-100.0); PLATELET COUNT 110 10x3/uL (130-400); WBC 11.1 10x3/uL (4.8-10.8)
[2019-03-03 06:08] LABS: INR 1.58 (0.85-1.17); PROTIME 18.3 SECONDS (11.6-15.0)
[2019-03-03 06:10] LABS: ANION GAP 19.6 mmol/L (8-16); BILIRUBIN - TOTAL 1.48 mg/dL (0.2-1.3); CALCIUM 7.5 mg/dL (8.5-10.1); CARBON DIOXIDE 22.5 mmol/L (21.0-32.0); CREATININE - SERUM 5.6 mg/dL (0.6-1.3); PHOSPHOROUS 4.6 mg/dL (2.5-4.9); POTASSIUM - SERUM 4.1 mmol/L (3.5-5.1); PROTEIN - SERUM 4.9 g/dL (6.4-8.2)
--- NOTE | 2019-03-03 07:15 | NUR ---
REPORT RECEIVED. PT ON VENT AND HAS OGT. SETTINGS PER RT. HEAD TO TOE ASSESSMENT PERFORMED. PT HAS A CENTRAL LINE TO HIS RIGHT GROIN. VSS. PROPOFOL AND PROTONIX INFUSING. BED IN LOWEST POSITION. SIDE RAILS UP X2. WILL CONTINUE TO MONITOR.
--- NOTE | 2019-03-03 09:17 | NUR ---
AT BEDSIDE. UPDATED. NO NEEDS AT THIS TIME.
--- NOTE | 2019-03-03 09:30 | NUR ---
NUTRITION F/U PT REMAINS SEDATED ON VENT. DIPRIVAN @ 6 CC/HR. RECOMMEND STARTING NEPRO TUBE FEEDS @ 10 CC/HR WITH GOAL RATE 50 CC/HR. RD FOLLOWING
--- NOTE | 2019-03-03 09:41 | NUR ---
DR JORDAN PAGED PER DR BELTRAN'S REQUEST TO SEE WHAT PLAN IS FOR PT.
--- NOTE | 2019-03-03 10:27 | MORECARE ---
CASE MANAGEMENT DISCHARGE SUMMARY PATIENT: MANA SAXENA UNIT: [id number] ADM DATE: 02/24/19 AGE: 78 : 38 SEX: M ROOM/BED: D.2310 AUTHOR: BJDOC PHYSICIAN: REFERRING PHYSICIAN: CASEY NAIDU MD DATE OF SERVICE: 03/03/19 Discharge Plan Patient Name: MANA SAXENA Facility: [facility]:[place] : 1940 Planned Disposition: [facility] Facility Anticipated Discharge Date: 02/24/19 Discharge Date: Expected LOS: 1 Initial Reviewer: [id number] Initial Review Date: 02/22/2019 Generated: 03/03/19 11:27 am Comments DCP- Discharge Planning Updated by [id number]: Ibrahima Nelson on 03/02/19 10:[address] Patient Name: MANA SAXENA Encounter No: [id number] : 1940 Primary Insurance: AETNA MEDICARE PPO or HMO Anticipated DC Date: 02-24-2019 Planned Disposition: Inpatient Rehab External Planned Provider: [facility] INPATIENT RE[facility] DCP follow-up note: CM RECEIVED CALL FROM IAN OF [facility], THEY HAVE ACCEPTED MEDICALLY AND WILL SUBMIT TO INSURANCE FOR AUTHORIZATION FOR INPATIENT REHAB SERVICES. CM ADVISED THAT PT HAD MOVED TO ICU THIS MORNING AND THAT PT HAS BEEN REFUSING THERAPY SERVICES AND FURTHER THAT OCCUPATIONAL THERAPY EVALUATION HAS NOT YET BEEN COMPLETED. IAN WILL FOLLOW UP WITH CALL TO PT'S TO DISCUSS COMPLIANCE WITH THERAPY SERVICES TO SEE IF THE SPOUSE CAN SPEAK TO PT. CM WAITING RETURN CALL FROM PT'S SPOUSE, QUEEN ODESSA. [facility] WILL SUBMIT TO PT'S INSURANCE COMPANY FOR INPATIENT REHAB AUTHORIZATION WHEN OCCUPATIONAL THERAPY EVALUATION HAS BEEN COMPLETED AND RECEIVED. CM WAITING ADMISSION DETERMINATION FROM [facility] AND [facility] OR REHAB OR SUPERINTENDENT BUILDING CARE. PT WILL NEED TO HAVE INSURANCE AUTHORIZATION WHEN OCCUPATIONAL THERAPY EVALUATION HAS BEEN COMPLETED AND RECEIVED BY LONGTERM FACILITY. FATOUMATA BHATT MANAGEMENT DCP- Discharge Planning Updated by [email or web address]: Ibrahima Nelson on 03/01/19 3:[address] Patient Name: MANA SAXENA Encounter No: [id number] : 1940 Primary Insurance: AETNA MEDICARE PPO or HMO Anticipated DC Date: 02-24-2019 Planned Disposition: Inpatient Rehab External Planned Provider: [facility] INPATIENT REH[facility] DCP follow-up note: CM REVIEWED CHART, OCCUPATIONAL THERAPY EVALUATION HAS STILL NOT BEEN COMPLETED / DOCUMENTED. CM FAXED BASIC REFERRAL TO [facility] FOR INPATIENT REHAB CONSIDERATION AT [phone]. CM TO FAX UPDATE WITH OCCUPATIONAL THERAPY EVALUATION WHEN IT IS COMPLETED AND DOCUMENTED. Ibrahima Nelson, CASE MANAGEMENT Appended by Ibrahima Nelson on 03/01/2019 16:14 CDT: CM REVIEWED CHART, PT REFUSED PHYSICAL THERAPY TODAY AND THERAPY HAS SIGNED OFF DUE TO PT REFUSAL. OCCUPATIONAL THERAPY EVALUATION STILL NOT COMPLETED. IT IS CM'S EXPERIENCE THAT INSURANCE WILL NOT PAY FOR REHAB SERVICES UNLESS PT IS PARTICIPATING, WHICH THIS PT IS NOT. CM SPOKE TO PT IN ROOM WHO REPORTS HE DID NOT UNDERSTAND; PT STATES HE IS GOING HOME. WHEN CM EXPLAINED IN SLOW DETAIL THAT PT'S SPOUSE WANTS HIM TO GO TO REHAB, PT YELLS AT THAT SOMETHING MUST BE WRONG AND TO CALL WANG. CM CALLED QUEEN ODESSA, SPOUSE, , LEFT MESSAGE ASKING FOR RETURN CALL. CM FAXED REFERRAL TO [facility] IN [place] THAT THEY CAN GET AUTHORIZATION FOR REHAB WITH PT'S REFUSAL TO DO THERAPY OR AT LEAST CONSIDER FOR SENIOR LIVING CARE. CM WAITING RETURN CALL FROM PT'S SPOUSE, QUEEN ODESSA. CM WAITING ADMISSION DETERMINATION FROM [facility] AND REHAB OR REHAB OR SENIOR LIVING CARE. IBRAHIMA NELSON, CASE MANAGEMENT DCP- Discharge Planning Updated by [email or web address]: Ibrahima Nelson on 02/26/19 12:[address] Patient Name: MANA SAXENA Encounter No: [id number] : 1940 Primary Insurance: AETNA MEDICARE PPO or HMO Anticipated DC Date: 02-24-2019 Planned Disposition: Inpatient Rehab External Planned Provider: [facility] INPATIENT REH[facility] DCP follow-up note: CM RECEIVED CALL FROM AYUSH OF [facility]; SHE HAD CALLED PT'S SPOUSE TO ARRANGE DELIVERY OF MANUAL WHEELCHAIR AND SPOUSE REFUSED IT STATING THAT SHE CANNOT PHYSICALLY PUSH PT IN A WHEELCHAIR AND REQEUSTED A POWER CHAIR. CM ATTEMPTED TO SEE PT'S SPOUSE IN ROOM, SHE WAS NOT THERE. CM CALLED QUEEN ODESSA, . CM INFORMED THAT AN ELECTRIC WHEELCHAIR REQUIRES VERY DETAILED AND LENGHTY DOCUMENTATION THAT CANNOT BE DONE FROM HOSPITAL, REFERRED HER TO PT'S PRIMARY CARE DOCTOR. CM DISCUSSED AVAILABILITY OF REHAB SERVICES, PROVIDERS AND LOCATIONS. REPORTS SHE IS OLDER THAN PT AND IS HAVING TROUBLE CARING FOR PT IN HIS WEAKENED STATE AND WOULD LIKE REHAB AT [facility] FIRST CHOICE AND [facility] SECOND, [facility] THIRD BUT WILL NOT CONSIDER [facility] IN [place]. CHOICE LETTER COMPLETED. CHART REVIEWED, PHYSICAL THERAPY EVALUATION STILL PENDING, NO OCCUPATIONAL THERAPY HAD BEEN ORDERED. CM OBTAINED ORDER FOR OCCUPATIONAL THERAPY EVALUATION. CM TO PROVIDE REFERRAL TO [facility] FOR INPATIENT REHAB CONSIDERATION ONCE PHYSICAL AND OCCUPATIONAL THERAPY EVALUATIONS ARE COMPLETED. Ibrahima Nelson, CASE MANAGEMENT DCP- Discharge Planning Updated by [id number]: Ibrahima Nelson on 02/23/19 3:[address] Patient Name: MANA SAXENA Admission Status: ER Accout number: [id number] Admission Date: 02-22-2019 : 1940 Admission Diagnosis: Attending: CASEY NAIDU Current LOS: 1 Anticipated DC Date: 02-24-2019 Planned Disposition: Home with Home Health Primary Insurance: UNINSURED DISCOUNT PLAN PLANNED EXTERNAL PROVIDER: [facility] Discharge Planning Comments: CM RECEIVED ORDER FOR HOME HEALTH. CM MET WITH PT AND SPOUSE IN ROOM TO DISCUSS DISCHARGE PLANNING AND NEEDS. MANA SAXENA provided verbal consent to discuss current and ongoing needs with/in the presence of: SPOUSE, . ANSWERED ALL QUESTIONS. PT LIVING AT HOME DEPENDENTLY WITH SPOUSE WHO ASSISTS WITH MEDICATIONS. PT HAS BEEN GETTING WEAKER AND NOW NEEDS ASSISTANCE WITH BATHING. PT HAS WALKER WITH WHEELS, SEAT AND BRAKES AND NO MEDICAL EQUIPMENT PROVIDER PREFERENCE. PT HAS HOME HEALTH WITH [facility] FOR NURSING AND PHYSICAL THERAPY. CM DISCUSSED AVAILABILITY OF HOME HEALTH, REHAB SERVICES AND MEDICAL EQUIPMENT. PT'S SPOUSE WANTS [facility] RESUMPTION AND REPORTS NEEDING A WHEELCHAIR PT IS NO LONGER ABLE TO CLIMB THE STEPS TO GET ON THE MEDICAID BUS FOR DIALYSIS TRANSPORTATION. PT GOES TO DIALYSIS IN [place] ON MWF SCHEDULE. PT'S FAMILY TO TRANSPORT HOME AT DISCHARGE. CHOICE SIGNED FOR [facility], CHOICE FOR NO PREFERENCE FOR MEDICAL EQUIPMENT PROVIDER COMPLETED BY CM. CM COLLECTED REGISTRATION INFORMATION AND FORWARDED TO [facility] OF REGISTRATION. CM SPOKE TO BOWEN TEJADA WHO PROVIDED ORDER FOR WHEELCHAIR. CM CALLED [facility], , SPOKE TO AYUSH AND PROVIDED REFERRAL INFORMATION FOR WHEELCHAIR. CM FAXED ORDER AND CHART INFORMATION TO [facility] AT [phone]. [facility] TO PROCESS ORDER FOR WHEELCHAIR DELIVERY TO PT IF QUALIFIES; PT'S INSURANCE REQUIRES PRIOR AUTHORIZATION. CM CALLED [facility], , SPOKE TO KURT, PROVIDED REFERRAL INFORMATION, PT IS ON SERVICES WITH [facility] ALREADY.. CM FAXED REFERRAL INFORMATION TO [facility], . FOR DISCHARGE, NOTIFY [facility] AT [phone]; FAX DISCHARGE INFORMATION TO [facility] AT [phone]. Pulverizer Mill Operator: Ibrahima Nelson DCPIA - Discharge Planning Initial Assessment Updated by AMELIA: Ibrahima Nelson on 02/23/19 3:52 pm * Is the patient Alert and Oriented? Yes * How many steps to enter\exit or inside your home? RAMP * PCP DR. VIC PAREDES IN [place] * Pharmacy [facility] IN [place] * Preadmission Environment Home with Family * ADLs Partial Dependent * Partial ADLs (Assistance needed) Bathing Medication Management * Equipment Rolling Walker * Other Equipment ROLLING WALKER WITH SEAT AND BRAKES NO MEDICAL EQUIPMENT PROVIDER PREFERENCE * List name and contact numbers for known caregivers / representatives who currently or will assist patient after discharge: QUEEN ODESSA, SPOUSE, IDRIS SAXENA, NIECE, * Verbal permission to speak to the caregivers and representatives has been obtained from the patient. Yes * Community resources currently utilized Home Health * Please name any agencies selected above. [facility], NURSING AND PHYSICAL THERAPY * Additional services required to return to the preadmission environment? No * Can the patient safely return to the preadmission environment? Yes * Has this patient been hospitalized within the prior 30 days at any hospital? Yes Coverage Notice Reviewer: [id number] Edilia Nelson Notice Issued Date-Time: 02/23/2019 15:15 Notice Type: Patient Choice Letter Notice Delivered To: Family Member Relationship to Patient: Spouse Rectifier Operator Name: QUEEN ODESSA Delivery Method: HAND - Hand Delivered Cristina Days: Prior Verbal Notification: Recipient Understood Notice: Yes Recipient Signature: Yes Med Rec Note Co-signed by Attending: Coverage Notice Comment: ANY MEDICAL EQUIPMENT COMPANY SERVICING [place] // [facility] Reviewer: [id number] Nelson Notice Issued Date-Time: 02/26/2019 12:00 Notice Type: Patient Choice Letter Notice Delivered To: Family Member Relationship to Patient: Spouse Rectifier Operator Name: QUEEN ODESSA Delivery Method: PHONE - Phone Cristina Days: Prior Verbal Notification: Recipient Understood Notice: Yes Recipient Signature: Med Rec Note Co-signed by Attending: Coverage Notice Comment: [facility]- [facility] 3-[place] [facility]!! Last DP export: 03/02/19 10:32 am Patient Name: MANA SAXENA Page [id number] at 1027 All edits/amendments must be made on the electronic document DICTATION DATE: 03/03/19 1026 MOBILE PRODUCT MANAGER: GRACE 03/03/19 1026 RPT#: [id number] DC DATE: STATUS: ADM IN [facility] [address] [place] [address] END OF REPORT
--- NOTE | 2019-03-03 10:36 | MORECARE ---
CASE MANAGEMENT DISCHARGE SUMMARY PATIENT: MANA SAXENA UNIT: [id number] ADM DATE: 02/24/19 AGE: 78 : 38 SEX: M ROOM/BED: D.2310 AUTHOR: BJ,DOC PHYSICIAN: REFERRING PHYSICIAN: CASEY NAIDU MD DATE OF SERVICE: 03/03/19 Discharge Plan Patient Name: MANA SAXENA Facility: [facility]:[place] : 1940 Planned Disposition: Usp Facility Anticipated Discharge Date: 02/24/19 Discharge Date: Expected LOS: 1 Initial Reviewer: [id number] Initial Review Date: 02/22/2019 Generated: 03/03/19 11:36 am Comments DCP- Discharge Planning Updated by [id number]: Ibrahima Nelson on 03/03/19 9:[address] Patient Name: MANA SAXENA Encounter No: [id number] : 1940 Primary Insurance: AETNA MEDICARE PPO or HMO Anticipated DC Date: 02-24-2019 Planned Disposition: [facility]sp Facility External Planned Provider: [facility], MEDICARE REHAB BED DCP follow-up note: CM RECEIVED CALL FROM PREETHI [facility] INPATIENT [facility], UPDATE PROVIDED VIA PHONE; DOU[facility]AS CANCELLED REFERRAL AND INSTRUCTED CM TO SEND REFERRAL WHEN PT IS BETTER AND IF PT STILL NEEDS INPATIENT REHAB SERVICES. CM WAITING ADMISSION DETERMINATION FROM [facility] FOR REHAB OR [facility]. PT WILL NEED TO HAVE INSURANCE AUTHORIZATION WHEN OCCUPATIONAL THERAPY EVALUATION HAS BEEN COMPLETED AND RECEIVED BY ALF FACILITY. FATOUMATA BHATT DCP- Discharge Planning Updated by [id number]: Ibrahima Nelson on 03/02/19 10:[address] Patient Name: MANA SAXENA Encounter No: [id number] : 1940 Primary Insurance: AETNA MEDICARE PPO or HMO Anticipated DC Date: 02-24-2019 Planned Disposition: Inpatient Rehab External Planned Provider: [facility] INPATIENT REH[facility] DCP follow-up note: CM RECEIVED CALL FROM IAN [facility], THEY HAVE ACCEPTED MEDICALLY AND WILL SUBMIT TO INSURANCE FOR AUTHORIZATION FOR INPATIENT REHAB SERVICES. CM ADVISED THAT PT HAD MOVED TO ICU THIS MORNING AND THAT PT HAS BEEN REFUSING THERAPY SERVICES AND FURTHER THAT OCCUPATIONAL THERAPY EVALUATION HAS NOT YET BEEN COMPLETED. IAN WILL FOLLOW UP WITH CALL TO PT'S TO DISCUSS COMPLIANCE WITH THERAPY SERVICES TO SEE IF THE SPOUSE CAN SPEAK TO PT. CM WAITING RETURN CALL FROM PT'S SPOUSE, QUEEN ODESSA. [facility] WILL SUBMIT TO PT'S INSURANCE COMPANY FOR INPATIENT REHAB AUTHORIZATION WHEN OCCUPATIONAL THERAPY EVALUATION HAS BEEN COMPLETED AND RECEIVED. CM WAITING ADMISSION DETERMINATION FROM [facility] OR REHAB OR [facility]. PT WILL NEED TO HAVE INSURANCE AUTHORIZATION WHEN OCCUPATIONAL THERAPY EVALUATION HAS BEEN COMPLETED AND RECEIVED BY ALF FACILITY. IBRAHIMA NELSON, CASE MANAGEMENT DCP- Discharge Planning Updated by [id number]: Ibrahima Nelson on 03/01/19 3:[address] Patient Name: MANA SAXENA Encounter No: [id number] : 1940 Primary Insurance: AETNA MEDICARE PPO or HMO Anticipated DC Date: 02-24-2019 Planned Disposition: Inpatient Rehab External Planned Provider: [facility] INPATIENT REHAB DCP follow-up note: [facility] REVIEWED CHART, OCCUPATIONAL THERAPY EVALUATION HAS STILL NOT BEEN COMPLETED / DOCUMENTED. CM FAXED BASIC REFERRAL TO [facility] FOR INPATIENT REHAB CONSIDERATION AT [phone]. CM TO FAX UPDATE WITH OCCUPATIONAL THERAPY EVALUATION WHEN IT IS COMPLETED AND DOCUMENTED. Ibrahima Nelson CASE MANAGEMENT Appended by Ibrahima Nelson on 03/01/2019 16:14 CDT: [facility] REVIEWED CHART, PT REFUSED PHYSICAL THERAPY TODAY AND THERAPY HAS SIGNED OFF DUE TO PT REFUSAL. OCCUPATIONAL THERAPY EVALUATION STILL NOT COMPLETED. IT IS CM'S EXPERIENCE THAT INSURANCE WILL NOT PAY FOR REHAB SERVICES UNLESS PT IS PARTICIPATING, WHICH THIS PT IS NOT. CM SPOKE TO PT IN ROOM WHO REPORTS HE DID NOT UNDERSTAND; PT STATES HE IS GOING HOME. WHEN CM EXPLAINED IN SLOW DETAIL THAT PT'S SPOUSE WANTS HIM TO GO TO REHAB, PT YELLS AT THAT SOMETHING MUST BE WRONG AND TO CALL . CM CALLED QUEEN ODESSA, SPOUSE, , LEFT MESSAGE ASKING FOR RETURN CALL. CM FAXED REFERRAL TO [facility] [place] THAT THEY CAN GET AUTHORIZATION FOR REHAB WITH PT'S REFUSAL TO DO THERAPY OR AT LEAST CONSIDER FOR [facility]F COURSE KEEPER CARE. CM WAITING RETURN CALL FROM PT'S SPOUSE, QUEEN ODESSA. CM WAITING ADMISSION DETERMINATION FROM [facility] OR REHAB OR [facility] KEEPER C[facility]. FATOUMATA BHATT MANAGEMENT DCP- Discharge Planning Updated by [id number]: Ibrahima Nelson on 02/26/19 12:[address] Patient Name: MANA SAXENA Encounter No: [id number] : 1940 Primary Insurance: AETNA MEDICARE PPO or HMO Anticipated DC Date: 02-24-2019 Planned Disposition: Inpatient Rehab External Planned Provider: [facility] INPATIENT REHAB DCP follow-up note: CM RECEIVED CALL FROM AYUSH OF [facility]; SHE HAD CALLED PT'S SPOUSE TO ARRANGE DELIVERY OF MANUAL WHEELCHAIR AND SPOUSE REFUSED IT STATING THAT SHE CANNOT PHYSICALLY PUSH PT IN A WHEELCHAIR AND REQEUSTED A POWER CHAIR. CM ATTEMPTED TO SEE PT'S SPOUSE IN ROOM, SHE WAS NOT THERE. CM CALLED QUEEN ODESSA, . CM INFORMED THAT AN ELECTRIC WHEELCHAIR REQUIRES VERY DETAILED AND LENGHTY DOCUMENTATION THAT CANNOT BE DONE FROM HOSPITAL, REFERRED HER TO PT'S PRIMARY CARE DOCTOR. CM DISCUSSED AVAILABILITY OF REHAB SERVICES, PROVIDERS AND LOCATIONS. REPORTS SHE IS OLDER THAN PT AND IS HAVING TROUBLE CARING FOR PT IN HIS WEAKENED STATE AND WOULD LIKE REHAB AT [facility] FIRST CHOICE AND [facility] SECOND, [facility] THIRD BUT WILL NOT CONSIDER [facility] IN [place]. CHOICE LETTER COMPLETED. CHART REVIEWED, PHYSICAL THERAPY EVALUATION STILL PENDING, NO OCCUPATIONAL THERAPY HAD BEEN ORDERED. CM OBTAINED ORDER FOR OCCUPATIONAL THERAPY EVALUATION. CM TO PROVIDE REFERRAL TO [facility] FOR INPATIENT REHAB CONSIDERATION ONCE PHYSICAL AND OCCUPATIONAL THERAPY EVALUATIONS ARE COMPLETED. FATOUMATA Bhatt DCP- Discharge Planning Updated by [id number]: Ibrahima Nelson on 02/23/19 3:[address] Patient Name: MANA SAXENA Admission Status: ER Accout number: [id number] Admission Date: 02-22-2019 : 1940 Admission Diagnosis: Attending: CASEY NAIDU Current LOS: 1 Anticipated DC Date: 02-24-2019 Planned Disposition: Home with Home Health Primary Insurance: UNINSURED DISCOUNT PLAN PLANNED EXTERNAL PROVIDER: [facility] Discharge Planning Comments: CM RECEIVED ORDER FOR HOME HEALTH. CM MET WITH PT AND SPOUSE IN ROOM TO DISCUSS DISCHARGE PLANNING AND NEEDS. MANA SAXENA provided verbal consent to discuss current and ongoing needs with/in the presence of: SPOUSE, . ANSWERED ALL QUESTIONS. PT LIVING AT HOME DEPENDENTLY WITH SPOUSE WHO ASSISTS WITH MEDICATIONS. PT HAS BEEN GETTING WEAKER AND NOW NEEDS ASSISTANCE WITH BATHING. PT HAS WALKER WITH WHEELS, SEAT AND BRAKES AND NO MEDICAL EQUIPMENT PROVIDER PREFERENCE. PT HAS HOME HEALTH WITH [facility] FOR NURSING AND PHYSICAL THERAPY. CM DISCUSSED AVAILABILITY OF HOME HEALTH, REHAB SERVICES AND MEDICAL EQUIPMENT. PT'S SPOUSE WANTS [facility] RESUMPTION AND REPORTS NEEDING A WHEELCHAIR PT IS NO LONGER ABLE TO CLIMB THE STEPS TO GET ON THE MEDICAID BUS FOR DIALYSIS TRANSPORTATION. PT GOES TO DIALYSIS IN [place] ON MWF SCHEDULE. PT'S FAMILY TO TRANSPORT HOME AT DISCHARGE. CHOICE SIGNED FOR [facility], CHOICE FOR NO PREFERENCE FOR MEDICAL EQUIPMENT PROVIDER COMPLETED BY CM. CM COLLECTED REGISTRATION INFORMATION AND FORWARDED TO [place] OF REGISTRATION. CM SPOKE TO BOWEN TEJADA WHO PROVIDED ORDER FOR WHEELCHAIR. CM CALLED [facility]IENT, , SPOKE TO AYUSH AND PROVIDED REFERRAL INFORMATION FOR WHEELCHAIR. CM FAXED ORDER AND CHART INFORMATION TO [facility] AT [phone]. [facility] PATIENT TO PROCESS ORDER FOR WHEELCHAIR DELIVERY TO PT IF QUALIFIES; PT'S INSURANCE REQUIRES PRIOR AUTHORIZATION. CM CALLED [facility], , SPOKE TO KURT, PROVIDED REFERRAL INFORMATION, PT IS ON SERVICES WITH [facility] ALREADY.. CM FAXED REFERRAL INFORMATION TO [facility], . FOR DISCHARGE, NOTIFY [facility] AT [phone]; FAX DISCHARGE INFORMATION TO [facility] AT [phone]. Costume Designer: Ibrahima Nelson KYPIA - Discharge Planning Initial Assessment Updated by [id number]: Ibrahima Nelson on 02/23/19 3:52 pm * Is the patient Alert and Oriented? Yes * How many steps to enter\exit or inside your home? RAMP * PCP DR. VIC PAREDES IN [place] * [facility]acy [facility] [place] * Preadmission Environment Home with Family * ADLs Partial Dependent * Partial ADLs (Assistance needed) Bathing Medication Management * Equipment Rolling Walker * Other Equipment ROLLING WALKER WITH SEAT AND BRAKES NO MEDICAL EQUIPMENT PROVIDER PREFERENCE * List name and contact numbers for known caregivers / representatives who currently or will assist patient after discharge: QUEEN ODESSA, SPOUSE, IDRISDevan SAXENA, NIECE, * Verbal permission to speak to the caregivers and representatives has been obtained from the patient. Yes * Community resources currently utilized Home Health * Please name any agencies selected above. [facility], NURSING AND PHYSICAL THERAPY * Additional services required to return to the preadmission environment? No * Can the patient safely return to the preadmission environment? Yes * Has this patient been hospitalized within the prior 30 days at any hospital? Yes Coverage Notice Reviewer: [id number] Edilia Nelson Notice Issued Date-Time: 02/23/2019 15:15 Notice Type: Patient Choice Letter Notice Delivered To: Family Member Relationship to Patient: Spouse Local Coordinator Name: QUEEN ODESSA Delivery Method: HAND - Hand Delivered Cristina Days: Prior Verbal Notification: Recipient Understood Notice: Yes Recipient Signature: Yes Med Rec Note Co-signed by Attending: Coverage Notice Comment: ANY MEDICAL EQUIPMENT COMPANY SERVICING [place] // [facility] Reviewer: [id number] Edilia Nelson Notice Issued Date-Time: 02/26/2019 12:00 Notice Type: Patient Choice Letter Notice Delivered To: Family Member Relationship to Patient: Spouse Local Coordinator Name: QUEEN ODESSA Delivery Method: PHONE - Phone Cristina Days: Prior Verbal Notification: Recipient Understood Notice: Yes Recipient Signature: Med Rec Note Co-signed by Attending: Coverage Notice Comment: [facility]- [facility] 3-[facility] NOT [facility]!! Last DP export: 03/02/19 10:32 am Patient Name: MANA SAXENA Page [id number] at 1036 All edits/amendments must be made on the electronic document DICTATION DATE: 03/03/19 1035 SQL CONSULTANT: GRACE 03/03/19 1035 RPT#: [id number] DC DATE: STATUS: ADM IN [facility] [address] [place] [address] END OF REPORT
--- NOTE | 2019-03-03 11:17 | NUR ---
PT OFF SEDATION. RESTING QUIETLY. VSS. REPOSITIONED AND SUCTIONED. WILL CONTINUE TO MONITOR.
[2019-03-03 12:52] LABS: HEMATOCRIT 28.9 % (42.0-54.0); HEMOGLOBIN 10.1 g/dL (13.5-17.5)
--- NOTE | 2019-03-03 13:40 | NUR ---
VSS. PT ON VENT. PER RT SETTINGS. ANURIC. REPOSITIONED. SUCTIONED. WILL CONTINUE TO MONITOR.
[2019-03-03 15:35] LABS: HEMOGLOBIN 10.6 g/dL (13.5-17.5)
--- NOTE | 2019-03-03 15:45 | NUR ---
VSS. PT OFF SEDATION. MOVING AROUND MORE. REASSESSMENT DONE. PT SUCTIONED AND REPOSITIONED.
--- NOTE | 2019-03-03 17:45 | NUR ---
PT RECEIVING DIALYSIS AT THIS TIME.
[2019-03-03 18:39] LABS: HEMATOCRIT 33.1 % (42.0-54.0)
--- NOTE | 2019-03-03 19:40 | NUR ---
PT WITH DIALYSIS IN ROOM. DIALYSIS NURSE STATES 188MLS REMOVED BUT NEEDED TO STOP DIALYSIS DUE TO DECREASING BLOOD PRESSURE. FERRICET HAS BEEN STARTED . WILL CONTINUE TO OBSERVE.
--- NOTE | 2019-03-03 21:03 | NUR ---
PT OPENS EYES WITH STIMULI, DOES NOT FOLLOW COMMANDS. NO SEDATION AT THIS TIME. DOES PULL AGAINST RESTRAINTS. REPOSITIONING PROVIDED. CONTINUES VENT. WILL CONTINUE TO OBSERVE.
[2019-03-03 21:51] LABS: HEMATOCRIT 29.3 % (42.0-54.0); HEMOGLOBIN 10.2 g/dL (13.5-17.5)
--- NOTE | 2019-03-03 23:41 | NUR ---
REASSESSMENT COMPLETED, SEE FLOW SHEET. REPOSITIONING PROVIDED. WILL CONTINUE TO OBSERVE.
[2019-03-04] VITALS (59 sets, daily range): BP systolic 80–141; BP diastolic 41–85
--- NOTE | 2019-03-04 01:44 | NUR ---
PT MOVES BODY WITH STIMULI. DOES NOT FOLLOW COMMANDS. SMALL AMOUNT OF BLOOD NOTED TO OGT TO LIGHT SUCTION. PT REPOSITIONED. WILL CONTINUE TO OBSERVE.
--- NOTE | 2019-03-04 03:14 | NUR ---
REASSESSMENT COMPLETED, SEE FLOW SHEET. WILL CONTINUE TO OBSERVE.
[2019-03-04 04:52] LABS: ALBUMIN 1.9 g/dL (3.4-5.0); ANION GAP 15.6 mmol/L (8-16); BILIRUBIN - TOTAL 1.29 mg/dL (0.2-1.3); CALCIUM 7.9 mg/dL (8.5-10.1); CARBON DIOXIDE 26.1 mmol/L (21.0-32.0); PHOSPHOROUS 3.7 mg/dL (2.5-4.9); POTASSIUM - SERUM 3.7 mmol/L (3.5-5.1); PROTEIN - SERUM 4.6 g/dL (6.4-8.2)
[2019-03-04 04:54] LABS: BASOPHILS 0.1 % (0-2); EOSINOPHILS 0.1 % (0-7); HEMATOCRIT 29.2 % (42.0-54.0); HEMOGLOBIN 10.2 g/dL (13.5-17.5); IMMATURE GRANULOCYTES 0.3 % (0-5); LYMPHOCYTES 4.9 % (15-50); MCH 29.2 pg (26.0-34.0); MCHC 34.9 g/dL (31.0-37.0); MCV 83.7 fL (80.0-100.0); MONOCYTES 9.5 % (2-11); NEUTROPHILS 85.1 % (40-80); RBC 3.49 10x6/uL (4.20-6.10); RDW 17.2 % (11.5-14.5); WBC 12.6 10x3/uL (4.8-10.8)
[2019-03-04 04:55] LABS: PLATELET COUNT 84 10x3/uL (130-400)
[2019-03-04 05:09] LABS: PLATELET ESTIMATE DECREASED
--- NOTE | 2019-03-04 07:15 | NUR ---
REPORT RECEIVED. PT ON VENT AND HAS OGT. PT IS OFF SEDATION. HE AROUSES TO VOICE. DOES NOT FOLLOW COMMANDS. PT IS ANURIC. HEAD TO TOE ASSESSMENT DONE. PT HAS CENTRAL LINE TO LEFT GROIN. PROTONIX DRIP INFUSING. DR JORDAN PLANS TO DO REPEAT EGD TODAY TO MAKE SURE GI BLEED HAS STOPPED. VSS. BED IN LOWEST POSITION. SIDE RAILS UP X2. WILL CONTINUE TO MONITOR.
--- NOTE | 2019-03-04 08:57 | NUR ---
NUTRITION F/U CHART REVIEWED, PT REMAINS ON VENT. NO CURRENT NUTRITION SUPPORT. NURSING REPORTS PT TO REMAIN NPO AND ON VENT FOR EGD TODAY. NOW ASSESSED WITH SEVERE MALNUTRITION OF ACUTE ILLNESS R/T DX, PMH, VENT STATUS AEB 1)=/< 50% EER =/> 5 DAYS 2)REDUCED FINANCIAL PLANNING CONSULTANT STRENGTH RECOMMEND STARTING NEPRO TUBE FEEDS WHEN MEDICALLY FEASIBLE. RD FOLLOWING
--- NOTE | 2019-03-04 09:30 | NUR ---
PROPOFOL STARTED BACK ON PT. SPOKE WITH DR JORDAN REGARDING PT. PLAN TO DO EGD THIS EVENING. SPOKE WITH DR BELTRAN ABOUT EXTUBATION/PROCEDURE AND STARTING SEDATION BACK. WILL REVISIT THE IDEA OF EXTUBATION POST EGD. FAMILY UPDATED.
--- NOTE | 2019-03-04 11:30 | NUR ---
PT RESTING QUIETLY. VSS. PT SUCTIONED AND REPOSITIONED. WILL CONTINUE TO MONITOR.
--- NOTE | 2019-03-04 13:45 | NUR ---
VSS. PT SEDATED BUT AROUSES TO VOICE. DOES NOT FOLLOW COMMANDS. PT REPOSITIONED. LEAVING FOR THE DAY. NO NEEDS AT THIS TIME. WILL CONTINUE TO MONITOR.
--- NOTE | 2019-03-04 15:15 | NUR ---
PT REPOSITIONED AND SUCTIONED. VSS. WILL CONTINUE TO MONITOR.
--- NOTE | 2019-03-04 16:39 | NUR ---
PT PREOPPED FOR EGD. PROPOPOL INCREASED BY 5MCG TO BE AT A RATE OF 15MCG/HR. VSS.
--- NOTE | 2019-03-04 19:14 | NUR ---
VOICEMAIL LEFT FOR PT'S TO UPDATE HER ABOUT PROCEDURE.
[2019-03-04 19:22] LABS: HEMATOCRIT 28.2 % (42.0-54.0); HEMOGLOBIN 9.5 g/dL (13.5-17.5)
--- NOTE | 2019-03-04 19:30 | NUR ---
PT RECEIVED ON VENT. SEDATED. VSS. MOVES ARMS TO STIMULI. WILL CONTINUE TO OBSERVE.
--- NOTE | 2019-03-04 21:31 | NUR ---
PT CONTINUES VENT WITH SEDATION. VSS. NO S/S OF DISTRESS. WILL CONTINUE TO OBSERVE.
--- NOTE | 2019-03-04 23:38 | NUR ---
REASSESSMENT COMPLETED, SEE FLOW SHEET. VSS. NO S/S OF DISTRESS. WILL CONTINUE TO OBSERVE.
[2019-03-05] VITALS (27 sets, daily range): BP systolic 84–132; BP diastolic 48–74
--- NOTE | 2019-03-05 02:23 | NUR ---
PT CONTINUES VENT WITH SEDATION. VSS. WILL CONTINUE TO OBSERVE.
--- NOTE | 2019-03-05 03:32 | NUR ---
PT WITH BLACK TARY STOOL, PERICARE PROVIDED. HEBICLENS BATH GIVEN WITH COMPLETE LINEN CHANGE. PT TOLERATED WELL.REASSSESSMENT COMPLETED, SEE FLOW SHEET. WILL CONTINUE TO OBSERVE.
[2019-03-05 05:26] LABS: BASOPHILS 0.1 % (0-2); EOSINOPHILS 0.6 % (0-7); HEMATOCRIT 28.7 % (42.0-54.0); HEMOGLOBIN 9.8 g/dL (13.5-17.5); IMMATURE GRANULOCYTES 0.3 % (0-5); LYMPHOCYTES 5.6 % (15-50); MCH 29.1 pg (26.0-34.0); MCHC 34.1 g/dL (31.0-37.0); MCV 85.2 fL (80.0-100.0); MONOCYTES 6.9 % (2-11); NEUTROPHILS 86.5 % (40-80); PLATELET COUNT 75 10x3/uL (130-400); RBC 3.37 10x6/uL (4.20-6.10); RDW 17.8 % (11.5-14.5); WBC 11.8 10x3/uL (4.8-10.8)
[2019-03-05 05:38] LABS: ALBUMIN 1.8 g/dL (3.4-5.0); ANION GAP 12.8 mmol/L (8-16); BILIRUBIN - TOTAL 0.94 mg/dL (0.2-1.3); CALCIUM 7.6 mg/dL (8.5-10.1); CARBON DIOXIDE 25.5 mmol/L (21.0-32.0); CREATININE - SERUM 5.9 mg/dL (0.6-1.3); POTASSIUM - SERUM 3.3 mmol/L (3.5-5.1); PROTEIN - SERUM 4.7 g/dL (6.4-8.2)
--- NOTE | 2019-03-05 07:30 | NUR ---
REPORT RECEIVED. ON VENT PER RT SETTINGS. HEAD TO TOE ASSESSMENT DONE. CVL TO LEFT GROIN. PROPOFOL AND PROTONIX DRIPS PER IV FLOWSHEET. VSS. WILL CONTINUE TO MONITOR.
--- NOTE | 2019-03-05 09:30 | NUR ---
VSS. ON VENT. WILL CONTINUE TO MONITOR.
--- NOTE | 2019-03-05 11:30 | NUR ---
PT REPOSITIONED AND SUCTIONED. PT RECEIVING DIALYSIS. WILL CONTINUE TO MONITOR.
[2019-03-05 12:14] LABS: F. TULARENSIS - IGG Negative (Negative); F. TULARENSIS - IGM Negative (Negative)
--- NOTE | 2019-03-05 13:30 | NUR ---
2L REMOVED PER DIALYSIS. VSS. WILL CONTINUE TO MONITOR.
--- NOTE | 2019-03-05 15:50 | NUR ---
PT EXTUBATED BY RT. ON O2 AT 3L.
--- NOTE | 2019-03-05 17:41 | NUR ---
PT SUCTIONED ORALLY. HELPED PT SUCTION HIMSELF. CLEAR SECRETIONS. PT ABLE TO FOLLOW COMMANDS.
--- NOTE | 2019-03-05 19:35 | NUR ---
PT AWAKE, ORIENTED - REQUESTING FOOD - UNABLE TO OBTAIN ORAL OR AXILLARY TEMP AT THIS TIME. RECTAL TEMP 94.1 - GEETHA HUGGER PLACED AT THIS TIME. SHIFT ASSESSMENT COMPLETED SEE FLOWSHEET. VSS CPOC
--- NOTE | 2019-03-05 21:15 | NUR ---
PATIENT TEMP IS NOW 94.6 AXILLARY ON RECHECK - GEETHA HEIKE REMAINS ON AT THIS TIME BP STABLE, PT DENIES NEEDS RESTING COMFORTABLY. CPOC
--- NOTE | 2019-03-05 23:10 | NUR ---
REASSESSMENT COMPLETED SEE FLOWSHEET
[2019-03-06] VITALS (22 sets, daily range): BP systolic 97–125; BP diastolic 50–70
--- NOTE | 2019-03-06 00:55 | NUR ---
PATIENT TEMP 96.1 AXILLARY ON RECHECK, BLOOD PRESSURE REMAINS STABLE, OTHER VSS - PATIENT HOT TO TOUCH, WHEN ASKED IF HE WAS TOO WARM HE NODDED HIS HEAD YES. GEETHA BURROUGHS REMAINS ON AT THIS TIME BUT TURNED TO A LOWER SETTING FOR PATIENT COMFORT
--- NOTE | 2019-03-06 03:15 | NUR ---
REASSESSMENT COMPLETED SEE FLOWSHEET
--- NOTE | 2019-03-06 04:45 | NUR ---
PATIENT STATED HE NEEDS TO PEE PROVIDED A URINAL AT THIS TIME. TEMP IS UP TO 96.5 - PATIENT SPEECH IS CLEAR AND DELIBERATE
[2019-03-06 07:45] LABS: BASOPHILS 0.1 % (0-2); EOSINOPHILS 0.3 % (0-7); HEMATOCRIT 27.3 % (42.0-54.0); HEMOGLOBIN 9.1 g/dL (13.5-17.5); IMMATURE GRANULOCYTES 0.3 % (0-5); LYMPHOCYTES 2.7 % (15-50); MCH 29.4 pg (26.0-34.0); MCHC 33.3 g/dL (31.0-37.0); MCV 88.1 fL (80.0-100.0); MEAN PLATELET VOLUME 11.6 fL (7.4-10.4); MONOCYTES 5.9 % (2-11); NEUTROPHILS 90.7 % (40-80); PLATELET COUNT 74 10x3/uL (130-400); RDW 18.6 % (11.5-14.5); WBC 15.3 10x3/uL (4.8-10.8)
[2019-03-06 08:05] LABS: ALBUMIN 1.8 g/dL (3.4-5.0); ANION GAP 13.6 mmol/L (8-16); BILIRUBIN - TOTAL 0.83 mg/dL (0.2-1.3); CALCIUM 7.7 mg/dL (8.5-10.1); CARBON DIOXIDE 27.2 mmol/L (21.0-32.0); CREATININE - SERUM 4.9 mg/dL (0.6-1.3); PROTEIN - SERUM 4.8 g/dL (6.4-8.2)
[2019-03-06 08:06] LABS: POTASSIUM - SERUM 3.8 mmol/L (3.5-5.1)
[2019-03-06 08:15] LABS: PLATELET ESTIMATE DECREASED; PLATELET MORPHOLOGY NORMAL PLT MORPH
--- NOTE | 2019-03-06 08:33 | NUR ---
SPOKE WITH PT, THEY STATE THEY ARE CURRENTLY NOT WORKING WITH THIS PATIENT. NEW ORDERS RECD. AND PT INFORMED OF NEW/RECONSULT.
--- NOTE | 2019-03-06 08:45 | NUR ---
PA WITH PT PRESENT AND ASSESSING PATIENT AND HIS ABILITIES.
--- NOTE | 2019-03-06 08:53 | NUR ---
UP TO CHAIR WITH ONE PT AND ONE RN
[2019-03-06 16:35] LABS: HEMATOCRIT 29.1 % (42.0-54.0); HEMOGLOBIN 9.5 g/dL (13.5-17.5)
--- NOTE | 2019-03-06 19:21 | NUR ---
RECEIVED PATIENT CARE - SHIFT ASSESSMENT COMPLETED SEE FLOWSHEET. PATIENT STATED HE NEEDS TO MOVE HIS BOWELS. ASSISTED WITH TURNING AND PLACEMENT OF BEDPAN. PATIENT ORIENTED TO PERSON, HE IS AWARE HE IS IN A HOSPITAL BUT HE THINKS ITS [facility] - HE THINKS IT IS THE YEAR 1991 AND HE IS IN THE HOSPITAL FOR A RASH ON HIS SHOULDER. RASH IS PRESENT. REORIENTED PATIENT X3. VSS CPOC
--- NOTE | 2019-03-06 19:44 | NUR ---
ATTEMPT TO CONTACT SPOUSE QUEEN ODESSA TO VERIFY BLOOD CONSENTS. NO CONTACT AT THIS TIME
--- NOTE | 2019-03-06 21:22 | NUR ---
PATIENT RESTING COMFORTABLY, VSS CPOC
--- NOTE | 2019-03-06 23:06 | NUR ---
PATIENT RESTING COMFORTABLY, OPENS EYES TO SPEECH, SKIN COOL TO TOUCH TEMP 97.1 ORAL - ADJUSTED PATIENT THERMOSTAT AND PROVIDED WARM BLANKET. REASSESSMENT COMPLETED SEE FLOWSHEET. PT DENIES NEEDS CPOC
[2019-03-07] VITALS (37 sets, daily range): BP systolic 93–115; BP diastolic 52–90
--- NOTE | 2019-03-07 02:50 | NUR ---
PATIENT RECEIVED HIBACLEANS BATH AND FULL LINEN CHANGE, TOLERATED WELL, PERFORMED ORAL CARE INDEPENDANTLY. VSS CPOC
--- NOTE | 2019-03-07 05:37 | NUR ---
PT RESTING COMFORTABLY IN BED PERFORMING ORAL CARE INDEPENDANTLY DENIES NEEDS VSS CPOC
[2019-03-07 07:05] LABS: BASOPHILS 0 % (0-2); EOSINOPHILS 0.4 % (0-7); HEMATOCRIT 28.3 % (42.0-54.0); HEMOGLOBIN 9.3 g/dL (13.5-17.5); IMMATURE GRANULOCYTES 0.2 % (0-5); LYMPHOCYTES 4.2 % (15-50); MCH 29.3 pg (26.0-34.0); MCHC 32.9 g/dL (31.0-37.0); MCV 89.3 fL (80.0-100.0); MONOCYTES 6.7 % (2-11); NEUTROPHILS 88.5 % (40-80); RBC 3.17 10x6/uL (4.20-6.10); RDW 18.6 % (11.5-14.5); WBC 12.3 10x3/uL (4.8-10.8)
[2019-03-07 07:10] LABS: PLATELET COUNT 143 10x3/uL (130-400)
--- NOTE | 2019-03-07 09:10 | NUR ---
SPOKE WITH DR. JORDAN ABOUT PATIENT CONDITION, ANTICIPATE TRANSFER TO FLOOR TOMORROW.
--- NOTE | 2019-03-07 09:11 | NUR ---
PATIENT ATE ALL OF EGGS, HAM AND APPLE JUICE FOR BREAKFAST
--- NOTE | 2019-03-07 19:00 | NUR ---
PT RESTING COMFORTABLY, CARE ASSUMED - SHIFT ASSESSMENT COMPLETED SEE FLOWSHEET. VSS PATIENT DENIES NEEDS, SLIGHTLY CONFUSED, HARD OF HEARING CPOC
--- NOTE | 2019-03-07 23:12 | NUR ---
REASSESSMENT COMPLETED SEE FLOWSHEET. PATIENT TEMP READING 97.3 AXILLARY, ADJUSTED ROOM AIR AND COVER WITH WARM BLANKET.
[2019-03-08] VITALS (17 sets, daily range): BP systolic 82–129; BP diastolic 46–69
--- NOTE | 2019-03-08 03:03 | NUR ---
REASSESSMENT COMPLETED SEE FLOWSHEET
--- NOTE | 2019-03-08 03:17 | NUR ---
PT PROVIDED WITH SANDWICH TRAY AND MILK PER REQUEST
--- NOTE | 2019-03-08 06:08 | NUR ---
DR MALLOY AT BEDSIDE, SAID OK TO MOVE TO FLOOR
[2019-03-08 06:36] LABS: BASOPHILS 0.1 % (0-2); EOSINOPHILS 0.7 % (0-7); HEMATOCRIT 27.3 % (42.0-54.0); HEMOGLOBIN 8.8 g/dL (13.5-17.5); IMMATURE GRANULOCYTES 0.4 % (0-5); LYMPHOCYTES 4.6 % (15-50); MCH 29.2 pg (26.0-34.0); MCHC 32.2 g/dL (31.0-37.0); MCV 90.7 fL (80.0-100.0); MEAN PLATELET VOLUME 11.9 fL (7.4-10.4); MONOCYTES 7.2 % (2-11); RBC 3.01 10x6/uL (4.20-6.10); WBC 10.8 10x3/uL (4.8-10.8)
[2019-03-08 06:39] LABS: PLATELET COUNT 88 10x3/uL (130-400)
[2019-03-08 07:09] LABS: ANION GAP 14.7 mmol/L (8-16); CARBON DIOXIDE 26.4 mmol/L (21.0-32.0); POTASSIUM - SERUM 4.1 mmol/L (3.5-5.1); VANCOMYCIN - RANDOM 16.4 ug/mL (10.0-20.0)
[2019-03-08 07:16] LABS: CREATININE - SERUM 6.7 mg/dL (0.6-1.3)
[2019-03-08 08:56] LABS: PLATELET ESTIMATE DECREASED
[2019-03-08 09:03] LABS: ANISOCYTOSIS OCC; POIKILOCYTOSIS OCC
--- NOTE | 2019-03-08 10:19 | NUR ---
Nutrition Follow Up: Pt stated that his appetite was good. RD encouraged pt to continue increasing po intake as able to promote healing, maintain strength, etc. Diet: Renal PO Intake: 63% meal avg BM: 03/07/19 Labs reviewed - Glucose elevated Meds noted including Levo, Lactulose Rec continue current diet. RD following.
--- NOTE | 2019-03-08 11:04 | NUR ---
WILL GIVE RETACRIT WHEN AVAILABLE FROM Rx
--- NOTE | 2019-03-08 11:17 | NUR ---
REPORT CALLED TO FLOOR NURSE, WILL TAKE PATIENT TO NEW ROOM WHEN HD COMPLETED.
--- NOTE | 2019-03-08 14:45 | NUR ---
PT TX COMPLETE, BLOOD RETURNED. 1760ML TAKEN OFF. HAD TO DECREASE UF GOAL AND GAVE ALBUMIN. 64/45 LOWEST B/P TURNED UF OFF, HR 85. PT RESTING NOT SS OF DISTRESS.
--- NOTE | 2019-03-08 15:25 | NUR ---
PATIENT HAS ARRIVED TO THE FLOOR. RECIEVED REPORT. 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 HE IS ALERT AND ORIENTED AND SITTING UP IN A CHAIR AT THIS TIME. PATIENT DENIES ANY NEEDS AT THIS TIME EXCEPT HE WOULD LIKE A SANDWICH.
--- NOTE | 2019-03-08 18:35 | NUR ---
PATIENT IS RESTING QUIETLY AT THIS TIME. HE DENIES ANY NEEDS AT THIS TIME. IV INFUSING IRON INTO CENTRAL LINE IN HIS LEFT GROIN.
--- NOTE | 2019-03-08 20:01 | NUR ---
ROUNDS COMPLETED. VSS, AAOX3 NO S/S OF RESP DISTRESS. PT HAD A BM OF DIARRHEA. HELPED CLEANED PT UP. PT VOICED THANKS. PT DENIES ANY FURTHER NEEDS FOR COMFORT CARE. WILL CPOC. CL IN REACH, BED IN LOW, SR UP X2.
[2019-03-09] VITALS: BP 111/58
[2019-03-09 04:00] VITALS: BP 110/63
[2019-03-09 05:28] LABS: HEMATOCRIT 25.6 % (42.0-54.0); HEMOGLOBIN 8.1 g/dL (13.5-17.5)
[2019-03-09 05:59] LABS: ALBUMIN 2.4 g/dL (3.4-5.0); BILIRUBIN - DIRECT 0.36 mg/dL (0.00-0.30); BILIRUBIN - INDIRECT 0.3 mg/dL (0.00-1.00); BILIRUBIN - TOTAL 0.66 mg/dL (0.2-1.3); PHOSPHOROUS 4.3 mg/dL (2.5-4.9); PROTEIN - SERUM 5.3 g/dL (6.4-8.2); VANCOMYCIN - RANDOM 17.2 ug/mL (10.0-20.0)
--- NOTE | 2019-03-09 07:29 | NUR ---
REPORT RECEIVED. WILL CONTINUE WITH POC. PT CURRENTLY LYING SUPINE. CALL LIGHT W/I REACH. FALL PRECAUTIONS IN PLACE. RR EVEN AND UNLABORED ON 3L 02. R.FEM CVL IS SALINE LOCKED. NO S/S OF DISTRESS NOTED. PT DENIES ANY NEEDS AT THIS TIME. WILL CTM.
--- NOTE | 2019-03-09 07:35 | MORECARE ---
CASE MANAGEMENT DISCHARGE SUMMARY PATIENT: MANA SAXENA UNIT: [id number] ADM DATE: 02/24/19 AGE: 78 : 38 SEX: M ROOM/BED: D.2102 AUTHOR: BJ,DOC PHYSICIAN: REFERRING PHYSICIAN: CASEY NAIDU MD DATE OF SERVICE: 03/09/19 Discharge Plan Patient Name: MANA SAXENA Facility: [facility]:[place] : 1940 Planned Disposition: [facility] Facility Anticipated Discharge Date: 02/24/19 Discharge Date: Expected LOS: 1 Initial Reviewer: [id number] Initial Review Date: 02/22/2019 Generated: 03/09/19 8:35 am DCP- Discharge Planning Updated by [email or web address]: Ibrahima Nelson on 03/03/19 9:[address] Patient Name: MANA SAXENA Encounter No: [id number] : 1940 Primary Insurance: AETNA MEDICARE PPO or HMO Anticipated DC Date: 02-24-2019 Planned Disposition: [facility] Facility External Planned Provider: [facility], MEDICARE REHAB BED DCP follow-up note: CM RECEIVED CALL FROM PREETHI [facility], UPDATE PROVIDED VIA PHONE; DOUGLAS CANCELLED REFERRAL AND INSTRUCTED CM TO SEND REFERRAL WHEN PT IS BETTER AND IF PT STILL NEEDS INPATIENT REHAB SERVICES. CM WAITING ADMISSION DETERMINATION FROM [facility] FOR REHAB OR USP CARE. PT WILL NEED TO HAVE INSURANCE AUTHORIZATION WHEN OCCUPATIONAL THERAPY EVALUATION HAS BEEN COMPLETED AND RECEIVED BY NURSING HOME FACILITY. FATOUMATA BHATT DCP- Discharge Planning Updated by [id number]: Ibrahima Nelson on 03/02/19 10:[address] Patient Name: MANA SAXENA Encounter No: [id number] : 1940 Primary Insurance: AETNA MEDICARE PPO or HMO Anticipated DC Date: 02-24-2019 Planned Disposition: Inpatient Rehab External Planned Provider: [facility] INPATIENT REH[facility] DCP follow-up note: CM RECEIVED CALL FROM IAN [facility], THEY HAVE ACCEPTED MEDICALLY AND WILL SUBMIT TO INSURANCE FOR AUTHORIZATION FOR INPATIENT REHAB SERVICES. CM ADVISED THAT PT HAD MOVED TO ICU THIS MORNING AND THAT PT HAS BEEN REFUSING THERAPY SERVICES AND FURTHER THAT OCCUPATIONAL THERAPY EVALUATION HAS NOT YET BEEN COMPLETED. IAN WILL FOLLOW UP WITH CALL TO PT'S TO DISCUSS COMPLIANCE WITH THERAPY SERVICES TO SEE IF THE SPOUSE CAN SPEAK TO PT. CM WAITING RETURN CALL FROM PT'S SPOUSE, QUEEN ODESSA. [facility] WILL SUBMIT TO PT'S INSURANCE COMPANY FOR INPATIENT REHAB AUTHORIZATION WHEN OCCUPATIONAL THERAPY EVALUATION HAS BEEN COMPLETED AND RECEIVED. CM WAITING ADMISSION DETERMINATION FROM [facility] OR REHAB OR [facility]VENT[facility] MANAGER CARE. PT WILL NEED TO HAVE INSURANCE AUTHORIZATION WHEN OCCUPATIONAL THERAPY EVALUATION HAS BEEN COMPLETED AND RECEIVED BY NURSING HOME FACILITY. IBRAHIMA NELSON, CASE MANAGEMENT DCP- Discharge Planning Updated by [id number]: Ibrahima Nelson on 03/01/19 3:[address] Patient Name: MANA SAXENA Encounter No: [id number] : 1940 Primary Insurance: AETNA MEDICARE PPO or HMO Anticipated DC Date: 02-24-2019 Planned Disposition: Inpatient Rehab External Planned Provider: [facility] INPATIENT RE[facility] DCP follow-up note: HODA REVIEWED CHART, OCCUPATIONAL THERAPY EVALUATION HAS STILL NOT BEEN COMPLETED / DOCUMENTED. CM FAXED BASIC REFERRAL TO [facility] FOR INPATIENT REHAB CONSIDERATION AT [phone]. CM TO FAX UPDATE WITH OCCUPATIONAL THERAPY EVALUATION WHEN IT IS COMPLETED AND DOCUMENTED. Ibrahima Nelson CASE MANAGEMENT Appended by Ibrahima Nelson on 03/01/2019 16:14 CDT: HODA REVIEWED CHART, PT REFUSED PHYSICAL THERAPY TODAY AND THERAPY HAS SIGNED OFF DUE TO PT REFUSAL. OCCUPATIONAL THERAPY EVALUATION STILL NOT COMPLETED. IT IS CM'S EXPERIENCE THAT INSURANCE WILL NOT PAY FOR REHAB SERVICES UNLESS PT IS PARTICIPATING, WHICH THIS PT IS NOT. CM SPOKE TO PT IN ROOM WHO REPORTS HE DID NOT UNDERSTAND; PT STATES HE IS GOING HOME. WHEN CM EXPLAINED IN SLOW DETAIL THAT PT'S SPOUSE WANTS HIM TO GO TO REHAB, PT YELLS AT THAT SOMETHING MUST BE WRONG AND TO CALL . CM CALLED QUEEN ODESSA, SPOUSE, , LEFT MESSAGE ASKING FOR RETURN CALL. CM FAXED REFERRAL TO [facility] IN HOPES THAT THEY CAN GET AUTHORIZATION FOR REHAB WITH PT'S REFUSAL TO DO THERAPY OR AT LEAST CONSIDER FOR USP CARE. CM WAITING RETURN CALL FROM PT'S SPOUSE, QUEEN ODESSA. CM WAITING ADMISSION DETERMINATION FROM [facility] OR REHAB OR USP CARE. IBRAHIMA NELSON CASE MANAGEMENT DCP- Discharge Planning Updated by [id number]: Ibrahima Nelson on 02/26/19 12:[address] Patient Name: MANA SAXENA Encounter No: [id number] : 1940 Primary Insurance: AETNA MEDICARE PPO or HMO Anticipated DC Date: 02-24-2019 Planned Disposition: Inpatient Rehab External Planned Provider: [facility] INPATIENT REH[facility] DCP follow-up note: CM RECEIVED CALL FROM AYUSH OF [facility]IENT; SHE HAD CALLED PT'S SPOUSE TO ARRANGE DELIVERY OF MANUAL WHEELCHAIR AND SPOUSE REFUSED IT STATING THAT SHE CANNOT PHYSICALLY PUSH PT IN A WHEELCHAIR AND REQEUSTED A POWER CHAIR. CM ATTEMPTED TO SEE PT'S SPOUSE IN ROOM, SHE WAS NOT THERE. CM CALLED QUEEN ODESSA, . CM INFORMED THAT AN ELECTRIC WHEELCHAIR REQUIRES VERY DETAILED AND LENGHTY DOCUMENTATION THAT CANNOT BE DONE FROM HOSPITAL, REFERRED HER TO PT'S PRIMARY CARE DOCTOR. CM DISCUSSED AVAILABILITY OF REHAB SERVICES, PROVIDERS AND LOCATIONS. REPORTS SHE IS OLDER THAN PT AND IS HAVING TROUBLE CARING FOR PT IN HIS WEAKENED STATE AND WOULD LIKE REHAB AT [facility] FIRST CHOICE AND [facility] SECOND, [facility] THIRD BUT WILL NOT CONSIDER [facility] IN [place]. CHOICE LETTER COMPLETED. CHART REVIEWED, PHYSICAL THERAPY EVALUATION STILL PENDING, NO OCCUPATIONAL THERAPY HAD BEEN ORDERED. CM OBTAINED ORDER FOR OCCUPATIONAL THERAPY EVALUATION. CM TO PROVIDE REFERRAL TO [facility] FOR INPATIENT REHAB CONSIDERATION ONCE PHYSICAL AND OCCUPATIONAL THERAPY EVALUATIONS ARE COMPLETED. FATOUMATA Bhatt DCP- Discharge Planning Updated by [id number]: Ibrahima Nelson on 02/23/19 3:[address] Patient Name: MANA SAXENA Admission Status: ER Accout number: [id number] Admission Date: 02-22-2019 : 1940 Admission Diagnosis: Attending: CASEY NAIDU Current LOS: 1 Anticipated DC Date: 02-24-2019 Planned Disposition: Home with Home Health Primary Insurance: UNINSURED DISCOUNT PLAN PLANNED EXTERNAL PROVIDER: [facility] Discharge Planning Comments: CM RECEIVED ORDER FOR HOME HEALTH. CM MET WITH PT AND SPOUSE IN ROOM TO DISCUSS DISCHARGE PLANNING AND NEEDS. MANA SAXENA provided verbal consent to discuss current and ongoing needs with/in the presence of: SPOUSEQUEEN. ANSWERED ALL QUESTIONS. PT LIVING AT HOME DEPENDENTLY WITH SPOUSE WHO ASSISTS WITH MEDICATIONS. PT HAS BEEN GETTING WEAKER AND NOW NEEDS ASSISTANCE WITH BATHING. PT HAS WALKER WITH WHEELS, SEAT AND BRAKES AND NO MEDICAL EQUIPMENT PROVIDER PREFERENCE. PT HAS HOME HEALTH WITH [facility] FOR NURSING AND PHYSICAL THERAPY. CM DISCUSSED AVAILABILITY OF HOME HEALTH, REHAB SERVICES AND MEDICAL EQUIPMENT. PT'S SPOUSE WANTS [facility] AND REPORTS NEEDING A WHEELCHAIR PT IS NO LONGER ABLE TO CLIMB THE STEPS TO GET ON THE MEDICAID BUS FOR DIALYSIS TRANSPORTATION. PT GOES TO DIALYSIS IN [place] ON MWF SCHEDULE. PT'S FAMILY TO TRANSPORT HOME AT DISCHARGE. CHOICE SIGNED FOR [facility], CHOICE FOR NO PREFERENCE FOR MEDICAL EQUIPMENT PROVIDER COMPLETED BY CM. CM COLLECTED REGISTRATION INFORMATION AND FORWARDED TO [place] OF REGISTRATION. CM SPOKE TO BOWEN TEJADA WHO PROVIDED ORDER FOR WHEELCHAIR. CM CALLED [facility] PATIENT, , SPOKE TO AYUSH AND PROVIDED REFERRAL INFORMATION FOR WHEELCHAIR. CM FAXED ORDER AND CHART INFORMATION TO [facility] PATIENT AT [phone]. [facility] PATIENT TO PROCESS ORDER FOR WHEELCHAIR DELIVERY TO PT IF QUALIFIES; PT'S INSURANCE REQUIRES PRIOR AUTHORIZATION. CM CALLED [facility], , SPOKE TO KURT, PROVIDED REFERRAL INFORMATION, PT IS ON SERVICES WITH [facility] ALREADY.. CM FAXED REFERRAL INFORMATION TO [facility], . FOR DISCHARGE, NOTIFY [facility] AT [phone]; FAX DISCHARGE INFORMATION TO [facility] AT [phone]. Fiber Product Cutting Machine Operator: Ibrahima Nelson CAPIA - Discharge Planning Initial Assessment Updated by [id number]: Ibrahima Nelson on 02/23/19 3:52 pm * Is the patient Alert and Oriented? Yes * How many steps to enter\exit or inside your home? RAMP * PCP DR. VIC PAREDES IN [place] * [facility] [place] * Preadmission Environment Home with Family * ADLs Partial Dependent * Partial ADLs (Assistance needed) Bathing Medication Management * Equipment Rolling Walker * Other Equipment ROLLING WALKER WITH SEAT AND BRAKES NO MEDICAL EQUIPMENT PROVIDER PREFERENCE * List name and contact numbers for known caregivers / representatives who currently or will assist patient after discharge: QUEEN ODESSA, SPOUSE, IDRISDevan SAXENA, NIECE, * Verbal permission to speak to the caregivers and representatives has been obtained from the patient. Yes * Community resources currently utilized Home Health * Please name any agencies selected above. [facility]UR[facility]ICAL THERAPY * Additional services required to return to the preadmission environment? No * Can the patient safely return to the preadmission environment? Yes * Has this patient been hospitalized within the prior 30 days at any hospital? Yes Coverage Notice Reviewer: [id number] Edilia Nelson Notice Issued Date-Time: 02/23/2019 15:15 Notice Type: Patient Choice Letter Notice Delivered To: Family Member Relationship to Patient: Spouse Beef Splitter Name: QUEEN ODESSA Delivery Method: HAND - Hand Delivered Cristina Days: Prior Verbal Notification: Recipient Understood Notice: Yes Recipient Signature: Yes Med Rec Note Co-signed by Attending: Coverage Notice Comment: ANY MEDICAL EQUIPMENT COMPANY SERVICING [place] // [facility] Reviewer: [id number] Edilia Nelson Notice Issued Date-Time: 02/26/2019 12:00 Notice Type: Patient Choice Letter Notice Delivered To: Family Member Relationship to Patient: Spouse Beef Splitter Name: QUEEN ODESSA Delivery Method: PHONE - Phone Cristina Days: Prior Verbal Notification: Recipient Understood Notice: Yes Recipient Signature: Med Rec Note Co-signed by Attending: Coverage Notice Comment: [facility]- [facility] 3-[facility] NOT [facility]!! Last DP export: 03/03/19 9:36 am Patient Name: MANA SAXENA Page [id number] at 0735 All edits/amendments must be made on the electronic document DICTATION DATE: 03/09/19733 PBX MECHANIC: GRACE 03/09/1936 RPT#: [id number] DC DATE: STATUS: ADM IN [facility] [address] [place] [address] END OF REPORT
[2019-03-09 08:29] LABS: % SATURATION 62 % (15-55); IRON 101 ug/dl (35-150); TOTAL IRON BIND CAPACITY 161 ug/dl (260-445); UNSAT IRON BIND CAPACITY 60 ug/dl (150-375)
[2019-03-09 08:35] VITALS: BP 138/63
[2019-03-09 11:33] VITALS: BP 117/57
--- NOTE | 2019-03-09 11:34 | MORECARE ---
CASE MANAGEMENT DISCHARGE SUMMARY PATIENT: MANA SAXENA UNIT: [id number] ADM DATE: 02/24/19 AGE: 78 : 36 SEX: M ROOM/BED: D.2102 AUTHOR: BJ,DOC PHYSICIAN: REFERRING PHYSICIAN: CASEY NAIDU MD DATE OF SERVICE: 03/09/19 Discharge Plan Patient Name: MANA SAXENA Facility: [facility]:[place] : 1940 Planned Disposition: [facility] Facility Anticipated Discharge Date: 02/24/19 Discharge Date: Expected LOS: 1 Initial Reviewer: [id number] Initial Review Date: 02/22/2019 Generated: 03/09/19 12:34 pm Comments DCP- Discharge Planning Updated by [id number]: Ibrahima Nelson on 03/09/19 10:[address] Patient Name: MANA SAXENA Encounter No: [id number] : 1940 Primary Insurance: AETNA MEDICARE PPO or HMO Anticipated DC Date: 02-24-2019 Planned Disposition: [facility] Facility External Planned Provider:[facility], MEDICARE REHAB BED DCP follow-up note: CM REVIEWED CHART, OBTAINED ORDER FOR OCCUPATIONAL THERAPY EVALUATION. CM FAXED UPDATED REFERRAL TO [facility] AND [facility], . CM RECEIVED CALL FROM UBALDO OF [facility], , [facility] IS NOT IN NETWORK WITH PT'S INSURANCE AND THEY HAVE SUBMITTED TO INSURANCE TO SEE IF INSURANCE WILL COVER REHAB AT [facility]. CM WAITING ADMISSION DETERMINATION FROM [facility] FOR REHAB. PT WILL NEED TO HAVE INSURANCE AUTHORIZATION FOR REHAB SERVICES. FATOUMATA BHATT DCP- Discharge Planning Updated by [id number]: Ibrahima Nelson on 03/03/19 9:[address] Patient Name: MANA SAXENA Encounter No: [id number] : 1940 Primary Insurance: AETNA MEDICARE PPO or HMO Anticipated DC Date: 02-24-2019 Planned Disposition: [facility] Facility External Planned Provider: [facility], MEDICARE REHAB BED DCP follow-up note: CM RECEIVED CALL FROM [facility], UPDATE PROVIDED VIA PHONE; DOUGLAS CANCELLED REFERRAL AND INSTRUCTED CM TO SEND REFERRAL WHEN PT IS BETTER AND IF PT STILL NEEDS INPATIENT REHAB SERVICES. CM WAITING ADMISSION DETERMINATION FROM [facility] FOR REHAB OR [facility]. PT WILL NEED TO HAVE INSURANCE AUTHORIZATION WHEN OCCUPATIONAL THERAPY EVALUATION HAS BEEN COMPLETED AND RECEIVED BY CUSTODIAL FACILITY. FATOUMATA BHATT DCP- Discharge Planning Updated by [id number]: Ibrahima Nelson on 03/02/19 10:[address] Patient Name: MANA SAXENA Encounter No: [id number] : 1940 Primary Insurance: AETNA MEDICARE PPO or HMO Anticipated DC Date: 02-24-2019 Planned Disposition: Inpatient Rehab External Planned Provider: [facility] DCP follow-up note: CM RECEIVED CALL FROM IAN OF [facility], THEY HAVE ACCEPTED MEDICALLY AND WILL SUBMIT TO INSURANCE FOR AUTHORIZATION FOR INPATIENT REHAB SERVICES. CM ADVISED THAT PT HAD MOVED TO ICU THIS MORNING AND THAT PT HAS BEEN REFUSING THERAPY SERVICES AND FURTHER THAT OCCUPATIONAL THERAPY EVALUATION HAS NOT YET BEEN COMPLETED. IAN WILL FOLLOW UP WITH CALL TO PT'S TO DISCUSS COMPLIANCE WITH THERAPY SERVICES TO SEE IF THE SPOUSE CAN SPEAK TO PT. CM WAITING RETURN CALL FROM PT'S SPOUSE, QUEEN ODESSA. [facility] WILL SUBMIT TO PT'S INSURANCE COMPANY FOR INPATIENT REHAB AUTHORIZATION WHEN OCCUPATIONAL THERAPY EVALUATION HAS BEEN COMPLETED AND RECEIVED. CM WAITING ADMISSION DETERMINATION FROM [facility] OR REHAB OR [facility]. PT WILL NEED TO HAVE INSURANCE AUTHORIZATION WHEN OCCUPATIONAL THERAPY EVALUATION HAS BEEN COMPLETED AND RECEIVED BY CUSTODIAL FACILITY. FATOUMATA BHATT DCP- Discharge Planning Updated by [id number]: Ibrahima Nelson on 03/01/19 3:[address] Patient Name: MANA SAXENA Encounter No: [id number] : 1940 Primary Insurance: AETNA MEDICARE PPO or HMO Anticipated DC Date: 02-24-2019 Planned Disposition: Inpatient Rehab External Planned Provider: [facility] D[facility] follow-up note: CM REVIEWED CHART, OCCUPATIONAL THERAPY EVALUATION HAS STILL NOT BEEN COMPLETED / DOCUMENTED. CM FAXED BASIC REFERRAL TO [facility] FOR INPATIENT REHAB CONSIDERATION AT [phone]. CM TO FAX UPDATE WITH OCCUPATIONAL THERAPY EVALUATION WHEN IT IS COMPLETED AND DOCUMENTED. FATOUMATA Bhatt Appended by Ibrahima Nelson on 03/01/2019 16:14 CDT: CM REVIEWED CHART, PT REFUSED PHYSICAL THERAPY TODAY AND THERAPY HAS SIGNED OFF DUE TO PT REFUSAL. OCCUPATIONAL THERAPY EVALUATION STILL NOT COMPLETED. IT IS CM'S EXPERIENCE THAT INSURANCE WILL NOT PAY FOR REHAB SERVICES UNLESS PT IS PARTICIPATING, WHICH THIS PT IS NOT. CM SPOKE TO PT IN ROOM WHO REPORTS HE DID NOT UNDERSTAND; PT STATES HE IS GOING HOME. WHEN CM EXPLAINED IN SLOW DETAIL THAT PT'S SPOUSE WANTS HIM TO GO TO REHAB, PT YELLS AT THAT SOMETHING MUST BE WRONG AND TO CALL . CM CALLED QUEEN ODESSA, SPOUSE, , LEFT MESSAGE ASKING FOR RETURN CALL. CM FAXED REFERRAL TO [facility] IN HOPES THAT THEY CAN GET AUTHORIZATION FOR REHAB WITH PT'S REFUSAL TO DO THERAPY OR AT LEAST CONSIDER FOR [facility] CARE. CM WAITING RETURN CALL FROM PT'S SPOUSE, QUEEN ODESSA. CM WAITING ADMISSION DETERMINATION FROM [facility] OR REHAB OR [facility] C[facility]. IBRAHIMA NELSON, CASE MANAGEMENT DCP- Discharge Planning Updated by [id number]: Ibrahima Nelson on 02/26/19 12:[address] Patient Name: MANA SAXENA Encounter No: [id number] : 1940 Primary Insurance: AETNA MEDICARE PPO or HMO Anticipated DC Date: 02-24-2019 Planned Disposition: Inpatient Rehab External Planned Provider: [facility] DCP follow-up note: CM RECEIVED CALL FROM AYUSH OF [facility]; SHE HAD CALLED PT'S SPOUSE TO ARRANGE DELIVERY OF MANUAL WHEELCHAIR AND SPOUSE REFUSED IT STATING THAT SHE CANNOT PHYSICALLY PUSH PT IN A WHEELCHAIR AND REQEUSTED A POWER CHAIR. CM ATTEMPTED TO SEE PT'S SPOUSE IN ROOM, SHE WAS NOT THERE. CM CALLED QUEEN ODESSA, . CM INFORMED THAT AN ELECTRIC WHEELCHAIR REQUIRES VERY DETAILED AND LENGHTY DOCUMENTATION THAT CANNOT BE DONE FROM HOSPITAL, REFERRED HER TO PT'S PRIMARY CARE DOCTOR. CM DISCUSSED AVAILABILITY OF REHAB SERVICES, PROVIDERS AND LOCATIONS. REPORTS SHE IS OLDER THAN PT AND IS HAVING TROUBLE CARING FOR PT IN HIS WEAKENED STATE AND WOULD LIKE REHAB AT [facility] FIRST CHOICE AND [facility], [facility] THIRD BUT WILL NOT CONSIDER [facility]. CHOICE LETTER COMPLETED. CHART REVIEWED, PHYSICAL THERAPY EVALUATION STILL PENDING, NO OCCUPATIONAL THERAPY HAD BEEN ORDERED. CM OBTAINED ORDER FOR OCCUPATIONAL THERAPY EVALUATION. CM TO PROVIDE REFERRAL TO [facility] FOR INPATIENT REHAB CONSIDERATION ONCE PHYSICAL AND OCCUPATIONAL THERAPY EVALUATIONS ARE COMPLETED. Ibrahima Nelson, CASE MANAGEMENT DCP- Discharge Planning Updated by [id number]: Ibrahima Nelson on 02/23/19 3:[address] Patient Name: MANA SAXENA Admission Status: ER Accout number: [id number] Admission Date: 02-22-2019 : 1940 Admission Diagnosis: Attending: CASEY NAIDU Current LOS: 1 Anticipated DC Date: 02-24-2019 Planned Disposition: Home with Home Health Primary Insurance: UNINSURED DISCOUNT PLAN PLANNED EXTERNAL PROVIDER: [facility] Discharge Planning Comments: CM RECEIVED ORDER FOR HOME HEALTH. CM MET WITH PT AND SPOUSE IN ROOM TO DISCUSS DISCHARGE PLANNING AND NEEDS. MANA SAXENA provided verbal consent to discuss current and ongoing needs with/in the presence of: SPOUSE, . ANSWERED ALL QUESTIONS. PT LIVING AT HOME DEPENDENTLY WITH SPOUSE WHO ASSISTS WITH MEDICATIONS. PT HAS BEEN GETTING WEAKER AND NOW NEEDS ASSISTANCE WITH BATHING. PT HAS WALKER WITH WHEELS, SEAT AND BRAKES AND NO MEDICAL EQUIPMENT PROVIDER PREFERENCE. PT HAS HOME HEALTH WITH [facility] FOR NURSING AND PHYSICAL THERAPY. CM DISCUSSED AVAILABILITY OF HOME HEALTH, REHAB SERVICES AND MEDICAL EQUIPMENT. PT'S SPOUSE WANTS [facility] RESUMPTION AND REPORTS NEEDING A WHEELCHAIR PT IS NO LONGER ABLE TO CLIMB THE STEPS TO GET ON THE MEDICAID BUS FOR DIALYSIS TRANSPORTATION. PT GOES TO DIALYSIS IN [place] ON MWF SCHEDULE. PT'S FAMILY TO TRANSPORT HOME AT DISCHARGE. CHOICE SIGNED FOR [facility], CHOICE FOR NO PREFERENCE FOR MEDICAL EQUIPMENT PROVIDER COMPLETED BY CM. CM COLLECTED REGISTRATION INFORMATION AND FORWARDED TO [facility] OF REGISTRATION. CM SPOKE TO BOWEN TEJADA WHO PROVIDED ORDER FOR WHEELCHAIR. CM CALLED [facility], , SPOKE TO AYUSH AND PROVIDED REFERRAL INFORMATION FOR WHEELCHAIR. CM FAXED ORDER AND CHART INFORMATION TO [facility] AT [phone]. [facility] TO PROCESS ORDER FOR WHEELCHAIR DELIVERY TO PT IF QUALIFIES; PT'S INSURANCE REQUIRES PRIOR AUTHORIZATION. CM CALLED [facility], , SPOKE TO KURT, PROVIDED REFERRAL INFORMATION, PT IS ON SERVICES WITH [facility] ALREADY.. CM FAXED REFERRAL INFORMATION TO [facility], . FOR DISCHARGE, NOTIFY [facility] AT [phone]; FAX DISCHARGE INFORMATION TO [facility] AT [phone]. Locomotive Oiler: Ibrahima Nelson DCPIA - Discharge Planning Initial Assessment Updated by [id number]: Ibrahima Nelson on 02/23/19 3:52 pm * Is the patient Alert and Oriented? Yes * How many steps to enter\exit or inside your home? RAMP * PCP DR. VIC PAREDES IN [place] * Pharmacy [facility] IN [place] * Preadmission Environment Home with Family * ADLs Partial Dependent * Partial ADLs (Assistance needed) Bathing Medication Management * Equipment Rolling Walker * Other Equipment ROLLING WALKER WITH SEAT AND BRAKES NO MEDICAL EQUIPMENT PROVIDER PREFERENCE * List name and contact numbers for known caregivers / representatives who currently or will assist patient after discharge: QUEEN ODESSA, KATY, CADEN ANDERSON, * Verbal permission to speak to the caregivers and representatives has been obtained from the patient. Yes * Community resources currently utilized Home Health * Please name any agencies selected above. [facility], NURSING AND PHYSICAL THERAPY * Additional services required to return to the preadmission environment? No * Can the patient safely return to the preadmission environment? Yes * Has this patient been hospitalized within the prior 30 days at any hospital? Yes Coverage Notice Reviewer: [id number] Edilia Nelson Notice Issued Date-Time: 02/23/2019 15:15 Notice Type: Patient Choice Letter Notice Delivered To: Family Member Relationship to Patient: Spouse Masonry Supervisor Name: QUEEN ODESSA Delivery Method: HAND - Hand Delivered Cristina Days: Prior Verbal Notification: Recipient Understood Notice: Yes Recipient Signature: Yes Med Rec Note Co-signed by Attending: Coverage Notice Comment: ANY MEDICAL EQUIPMENT COMPANY SERVICING [place] // [facility] Reviewer: [id number] Edilia Nelson Notice Issued Date-Time: 02/26/2019 12:00 Notice Type: Patient Choice Letter Notice Delivered To: Family Member Relationship to Patient: Spouse Masonry Supervisor Name: QUEEN DOESSA Delivery Method: PHONE - Phone Cristina Days: Prior Verbal Notification: Recipient Understood Notice: Yes Recipient Signature: Med Rec Note Co-signed by Attending: Coverage Notice Comment: [facility]- [facility]!! Last DP export: 03/09/19 6:35 a Patient Name: MANA SAXENA Page [id number] at 1134 All edits/amendments must be made on the electronic document DICTATION DATE: 03/09/191132 BLUEPRINT MACHINE OPERATOR: GRACE 03/09/193 RPT#: [id number] DC DATE: STATUS: ADM IN [facility] [address] [place] [address] END OF REPORT
[2019-03-09 15:59] VITALS: BP 122/65
--- NOTE | 2019-03-09 16:00 | NUR ---
RESTING IN BED. NO SIGNS OF DISTRESS. AGREE WITH ROTARY RIG ENGINE OPERATOR ASSESSMENT. VIRAJ, ROTARY RIG ENGINE OPERATOR RESUMES PLAN OF CARE AND SAFETY PRECAUTIONS.
--- NOTE | 2019-03-09 16:28 | NUR ---
I have reviewed this patient and I concur with the Shift Assessment completed by the Licensed Practical Nurse today this shift.
--- NOTE | 2019-03-09 19:31 | NUR ---
PATIENT LAYING IN BED, EYES CLOSED, CHEST RISING AND FALLING. NO DISTRESS NOTED.
[2019-03-09 20:00] VITALS: BP 118/67
--- NOTE | 2019-03-09 21:49 | NUR ---
OT NOTE: PT REQUIRED MAX A FOR BED MOB TASKS. PT COMPLETED SIMPLE FACE HYGIENE TASK WITH MOD A. THANK YOU, TROY SHORT
[2019-03-10] VITALS: BP 126/60
--- NOTE | 2019-03-10 00:19 | NUR ---
PATIENT LAYING IN BED. EYES CLOSED, CHEST RISING AND FALLING. NO DISTRESS NOTED.
--- NOTE | 2019-03-10 02:39 | NUR ---
PATIENT LAYING IN BED. EYES CLOSED, CHEST RISING AND FALLING. NO DISTRESS NOTED.
--- NOTE | 2019-03-10 03:49 | NUR ---
I have reviewed this patient and I concur with the Shift Assessment completed by the Licensed Practical Nurse today this shift.
[2019-03-10 04:00] VITALS: BP 131/69
[2019-03-10 06:49] LABS: BASOPHILS 0.1 % (0-2); EOSINOPHILS 0.6 % (0-7); HEMATOCRIT 25.9 % (42.0-54.0); HEMOGLOBIN 8.3 g/dL (13.5-17.5); IMMATURE GRANULOCYTES 0.3 % (0-5); LYMPHOCYTES 8.2 % (15-50); MCH 29.1 pg (26.0-34.0); MCV 90.9 fL (80.0-100.0); MONOCYTES 11.6 % (2-11); NEUTROPHILS 79.2 % (40-80); PLATELET COUNT 91 10x3/uL (130-400); RBC 2.85 10x6/uL (4.20-6.10); RDW 18.5 % (11.5-14.5); WBC 8.8 10x3/uL (4.8-10.8)
[2019-03-10 07:23] LABS: ANION GAP 13.8 mmol/L (8-16); CALCIUM 8.3 mg/dL (8.5-10.1); CREATININE - SERUM 5.8 mg/dL (0.6-1.3); PHOSPHOROUS 4.5 mg/dL (2.5-4.9); POTASSIUM - SERUM 3.8 mmol/L (3.5-5.1); VANCOMYCIN - RANDOM 15.9 ug/mL (10.0-20.0)
--- NOTE | 2019-03-10 07:29 | MORECARE ---
CASE MANAGEMENT DISCHARGE SUMMARY PATIENT: MANA SAXENA UNIT: [id number] ADM DATE: 02/24/19 AGE: 78 : 36 SEX: M ROOM/BED: D.2102 AUTHOR: BJ,DOC PHYSICIAN: REFERRING PHYSICIAN: CASEY NAIDU MD DATE OF SERVICE: 03/10/19 Discharge Plan Patient Name: MANA SAXENA Facility: [facility]:[place] : 1940 Planned Disposition: Half-Way Facility Anticipated Discharge Date: 02/24/19 Discharge Date: Expected LOS: 1 Initial Reviewer: [id number] Initial Review Date: 02/22/2019 Generated: 03/10/19 8:29 am Comments DCP- Discharge Planning Updated by [email or web address]: Ibrahima Nelson on 03/10/19 6:[address] Patient Name: MANA SAXENA Encounter No: [id number] : 1940 Primary Insurance: AETNA MEDICARE PPO or HMO Anticipated DC Date: 02-24-2019 Planned Disposition: Half-Way Facility External Planned Provider:[facility], MEDICARE REHAB BED DCP follow-up note: CM FAXED UDPATE WITH OT EVALUATION TO UBALDO AT [facility] AT [phone]. [facility] IS TRYING TO GET APPROVAL FOR OUT OF NETWORK SKILLED REHAB BENEFITS. CM WAITING ADMISSION DETERMINATION FROM [facility] FOR REHAB. PT WILL NEED TO HAVE INSURANCE AUTHORIZATION FOR REHAB SERVICES. IBRAHIMA NELSON, CASE VERO DCP- Discharge Planning Updated by [id number]: Ibrahima Nelson on 03/09/19 10:[address] Patient Name: MANA SAXENA Encounter No: [id number] : 1940 Primary Insurance: AETNA MEDICARE PPO or HMO Anticipated DC Date: 02-24-2019 Planned Disposition: Half-Way Facility External Planned Provider:[facility], MEDICARE REHAB BED DCP follow-up note: CM REVIEWED CHART, OBTAINED ORDER FOR OCCUPATIONAL THERAPY EVALUATION. CM FAXED UPDATED REFERRAL TO [facility], . CM RECEIVED CALL FROM UBALDO OF [facility], , [facility] IS NOT IN NETWORK WITH PT'S INSURANCE AND THEY HAVE SUBMITTED TO INSURANCE TO SEE IF INSURANCE WILL COVER REHAB AT [facility]. CM WAITING ADMISSION DETERMINATION FROM [facility] FOR REHAB. PT WILL NEED TO HAVE INSURANCE AUTHORIZATION FOR REHAB SERVICES. IBRAHIMA NELSON CASE MANAGEMENT DCP- Discharge Planning Updated by [id number]: Ibrahima Nelson on 03/03/19 9:[address] Patient Name: MANA SAXENA Encounter No: [id number] : 1940 Primary Insurance: AETNA MEDICARE PPO or HMO Anticipated DC Date: 02-24-2019 Planned Disposition: Half-Way Facility External Planned Provider: [facility], MEDICARE REHAB BED DCP follow-up note: CM RECEIVED CALL FROM PREETHI OF [facility], UPDATE PROVIDED VIA PHONE; DOUGLAS CANCELLED REFERRAL AND INSTRUCTED CM TO SEND REFERRAL WHEN PT IS BETTER AND IF PT STILL NEEDS INPATIENT REHAB SERVICES. CM WAITING ADMISSION DETERMINATION FROM [facility] FOR REHAB OR HALF-WAY CARE. PT WILL NEED TO HAVE INSURANCE AUTHORIZATION WHEN OCCUPATIONAL THERAPY EVALUATION HAS BEEN COMPLETED AND RECEIVED BY [facility]. IBRAHIMA NELSON CASE MANAGEMENT DCP- Discharge Planning Updated by [email or web address]: Ibrahima Nelson on 03/02/19 10:[address] Patient Name: MANA SAXENA Encounter No: [id number] : 1940 Primary Insurance: AETNA MEDICARE PPO or HMO Anticipated DC Date: 02-24-2019 Planned Disposition: Inpatient Rehab External Planned Provider: [facility] DCP follow-up note: CM RECEIVED CALL FROM IAN [facility], THEY HAVE ACCEPTED MEDICALLY AND WILL SUBMIT TO INSURANCE FOR AUTHORIZATION FOR INPATIENT REHAB SERVICES. CM ADVISED THAT PT HAD MOVED TO ICU THIS MORNING AND THAT PT HAS BEEN REFUSING THERAPY SERVICES AND FURTHER THAT OCCUPATIONAL THERAPY EVALUATION HAS NOT YET BEEN COMPLETED. IAN WILL FOLLOW UP WITH CALL TO PT'S TO DISCUSS COMPLIANCE WITH THERAPY SERVICES TO SEE IF THE SPOUSE CAN SPEAK TO PT. CM WAITING RETURN CALL FROM PT'S SPOUSE, QUEEN ODESSA. [facility] WILL SUBMIT TO PT'S INSURANCE COMPANY FOR INPATIENT REHAB AUTHORIZATION WHEN OCCUPATIONAL THERAPY EVALUATION HAS BEEN COMPLETED AND RECEIVED. CM WAITING ADMISSION DETERMINATION FROM [facility] OR REHAB OR DENTAL INTERNSHIP CARE. PT WILL NEED TO HAVE INSURANCE AUTHORIZATION WHEN OCCUPATIONAL THERAPY EVALUATION HAS BEEN COMPLETED AND RECEIVED BY ASSISTED FACILITY. FATOUMATA BHATT DCP- Discharge Planning Updated by [id number]: Ibrahima Nelson on 03/01/19 3:[address] Patient Name: MANA SAXENA Encounter No: [id number] : 1940 Primary Insurance: AETNA MEDICARE PPO or HMO Anticipated DC Date: 02-24-2019 Planned Disposition: Inpatient Rehab External Planned Provider: [facility] DCP follow-up note: CM REVIEWED CHART, OCCUPATIONAL THERAPY EVALUATION HAS STILL NOT BEEN COMPLETED / DOCUMENTED. CM FAXED BASIC REFERRAL TO [facility] FOR INPATIENT REHAB CONSIDERATION AT [phone]. CM TO FAX UPDATE WITH OCCUPATIONAL THERAPY EVALUATION WHEN IT IS COMPLETED AND DOCUMENTED. Ibrahima Nelson CASE MANAGEMENT Appended by Ibrahima Nelson on 03/01/2019 16:14 CDT: CM REVIEWED CHART, PT REFUSED PHYSICAL THERAPY TODAY AND THERAPY HAS SIGNED OFF DUE TO PT REFUSAL. OCCUPATIONAL THERAPY EVALUATION STILL NOT COMPLETED. IT IS CM'S EXPERIENCE THAT INSURANCE WILL NOT PAY FOR REHAB SERVICES UNLESS PT IS PARTICIPATING, WHICH THIS PT IS NOT. CM SPOKE TO PT IN ROOM WHO REPORTS HE DID NOT UNDERSTAND; PT STATES HE IS GOING HOME. WHEN CM EXPLAINED IN SLOW DETAIL THAT PT'S SPOUSE WANTS HIM TO GO TO REHAB, PT YELLS AT THAT SOMETHING MUST BE WRONG AND TO CALL . CM CALLED QUEEN ODESSA, SPOUSE, , LEFT MESSAGE ASKING FOR RETURN CALL. CM FAXED REFERRAL TO [facility] IN [place]OPES THAT THEY CAN GET AUTHORIZATION FOR REHAB WITH PT'S REFUSAL TO DO THERAPY OR AT LEAST CONSIDER FOR HALF-WAY CARE. CM WAITING RETURN CALL FROM PT'S SPOUSE, QUEEN ODESSA. CM WAITING ADMISSION DETERMINATION FROM [facility] OR REHAB OR DENTAL INTERNSHIP CARE. FATOUMATA BHATT DCP- Discharge Planning Updated by [id number]: Ibrahima Nelson on 02/26/19 12:[address] Patient Name: MANA SAXENA Encounter No: [id number] : 1940 Primary Insurance: AETNA MEDICARE PPO or HMO Anticipated DC Date: 02-24-2019 Planned Disposition: Inpatient Rehab External Planned Provider: [facility] DCP follow-up note: CM RECEIVED CALL FROM AYUSH OF [facility]; SHE HAD CALLED PT'S SPOUSE TO ARRANGE DELIVERY OF MANUAL WHEELCHAIR AND SPOUSE REFUSED IT STATING THAT SHE CANNOT PHYSICALLY PUSH PT IN A WHEELCHAIR AND REQEUSTED A POWER CHAIR. CM ATTEMPTED TO SEE PT'S SPOUSE IN ROOM, SHE WAS NOT THERE. CM CALLED QUEEN ODESSA, . CM INFORMED THAT AN ELECTRIC WHEELCHAIR REQUIRES VERY DETAILED AND LENGHTY DOCUMENTATION THAT CANNOT BE DONE FROM HOSPITAL, REFERRED HER TO PT'S PRIMARY CARE DOCTOR. CM DISCUSSED AVAILABILITY OF REHAB SERVICES, PROVIDERS AND LOCATIONS. REPORTS SHE IS OLDER THAN PT AND IS HAVING TROUBLE CARING FOR PT IN HIS WEAKENED STATE AND WOULD LIKE REHAB AT [facility] FIRST CHOICE AND [facility] SECOND, [facility] THIRD BUT WILL NOT CONSIDER [facility] IN [place]. CHOICE LETTER COMPLETED. CHART REVIEWED, PHYSICAL THERAPY EVALUATION STILL PENDING, NO OCCUPATIONAL THERAPY HAD BEEN ORDERED. CM OBTAINED ORDER FOR OCCUPATIONAL THERAPY EVALUATION. CM TO PROVIDE REFERRAL TO [facility] FOR INPATIENT REHAB CONSIDERATION ONCE PHYSICAL AND OCCUPATIONAL THERAPY EVALUATIONS ARE COMPLETED. Ibrahima Nelson, CASE MANAGEMENT DCP- Discharge Planning Updated by [id number]: Ibrahima Nelson on 02/23/19 3:[address] Patient Name: MANA SAXENA Admission Status: ER Accout number: [id number] Admission Date: 02-22-2019 : 1940 Admission Diagnosis: Attending: CASEY NAIDU Current LOS: 1 Anticipated DC Date: 02-24-2019 Planned Disposition: Home with Home Health Primary Insurance: UNINSURED DISCOUNT PLAN PLANNED EXTERNAL PROVIDER: [facility] Discharge Planning Comments: CM RECEIVED ORDER FOR HOME HEALTH. CM MET WITH PT AND SPOUSE IN ROOM TO DISCUSS DISCHARGE PLANNING AND NEEDS. MANA SAXENA provided verbal consent to discuss current and ongoing needs with/in the presence of: SPOUSE, . ANSWERED ALL QUESTIONS. PT LIVING AT HOME DEPENDENTLY WITH SPOUSE WHO ASSISTS WITH MEDICATIONS. PT HAS BEEN GETTING WEAKER AND NOW NEEDS ASSISTANCE WITH BATHING. PT HAS WALKER WITH WHEELS, SEAT AND BRAKES AND NO MEDICAL EQUIPMENT PROVIDER PREFERENCE. PT HAS HOME HEALTH WITH [facility] FOR NURSING AND PHYSICAL THERAPY. CM DISCUSSED AVAILABILITY OF HOME HEALTH, REHAB SERVICES AND MEDICAL EQUIPMENT. PT'S SPOUSE WANTS [facility] RESUMPTION AND REPORTS NEEDING A WHEELCHAIR PT IS NO LONGER ABLE TO CLIMB THE STEPS TO GET ON THE MEDICAID BUS FOR DIALYSIS TRANSPORTATION. PT GOES TO DIALYSIS IN [place] ON MWF SCHEDULE. PT'S FAMILY TO TRANSPORT HOME AT DISCHARGE. CHOICE SIGNED FOR [facility], CHOICE FOR NO PREFERENCE FOR MEDICAL EQUIPMENT PROVIDER COMPLETED BY [facility]. CM COLLECTED REGISTRATION INFORMATION AND FORWARDED TO [place] OF REGISTRATION. CM SPOKE TO BOWEN TEJADA WHO PROVIDED ORDER FOR WHEELCHAIR. CM CALLED [facility], , SPOKE TO AYUSH AND PROVIDED REFERRAL INFORMATION FOR WHEELCHAIR. CM FAXED ORDER AND CHART INFORMATION TO [facility] AT [phone]. [facility]IENT TO PROCESS ORDER FOR WHEELCHAIR DELIVERY TO PT IF QUALIFIES; PT'S INSURANCE REQUIRES PRIOR AUTHORIZATION. CM CALLED [facility], , SPOKE TO KURT, PROVIDED REFERRAL INFORMATION, PT IS ON SERVICES WITH [facility] ALREADY.. CM FAXED REFERRAL INFORMATION TO [facility], . FOR DISCHARGE, NOTIFY [facility] AT [phone]; FAX DISCHARGE INFORMATION TO [facility] AT [phone]. Senior Technical Architect: Ibrahima Nelson DCPIA - Discharge Planning Initial Assessment Updated by [id number]: Ibrahima Nelson on 02/23/19 3:52 pm * Is the patient Alert and Oriented? Yes * How many steps to enter\exit or inside your home? RAMP * PCP DR. VIC PAREDES IN [place] * Pharmacy [facility] IN [place] * Preadmission Environment Home with Family * ADLs Partial Dependent * Partial ADLs (Assistance needed) Bathing Medication Management * Equipment Rolling Walker * Other Equipment ROLLING WALKER WITH SEAT AND BRAKES NO MEDICAL EQUIPMENT PROVIDER PREFERENCE * List name and contact numbers for known caregivers / representatives who currently or will assist patient after discharge: QUEEN ODESSA, SPOUSE, IDRIS SAXENA, NIECE, * Verbal permission to speak to the caregivers and representatives has been obtained from the patient. Yes * Community resources currently utilized Home Health * Please name any agencies selected above. [facility] THERAP[facility] * Additional services required to return to the preadmission environment? No * Can the patient safely return to the preadmission environment? Yes * Has this patient been hospitalized within the prior 30 days at any hospital? Yes Coverage Notice Reviewer: [id number] - Ibrahima Nelson Notice Issued Date-Time: 02/23/2019 15:15 Notice Type: Patient Choice Letter Notice Delivered To: Family Member Relationship to Patient: Spouse Reeling Machine Setup Operator Name: QUEEN ODESSA Delivery Method: HAND - Hand Delivered Cristina Days: Prior Verbal Notification: Recipient Understood Notice: Yes Recipient Signature: Yes Med Rec Note Co-signed by Attending: Coverage Notice Comment: ANY MEDICAL EQUIPMENT COMPANY SERVICING [place] // [facility] Reviewer: [id number] Edilia Nelson Notice Issued Date-Time: 02/26/2019 12:00 Notice Type: Patient Choice Letter Notice Delivered To: Family Member Relationship to Patient: Spouse Reeling Machine Setup Operator Name: QUEEN ODESSA Delivery Method: PHONE - Phone Cristina Days: Prior Verbal Notification: Recipient Understood Notice: Yes Recipient Signature: Med Rec Note Co-signed by Attending: Coverage Notice Comment: [facility]- [facility] 3-[facility] NOT [facility]!! Last DP export: 03/09/19 10:34 a Patient Name: MANA SAXENA Page [id number] at 0729 All edits/amendments must be made on the electronic document DICTATION DATE: 03/10/19728 CORPORATE TAX PREPARER: RGACE 03/10/19728 RPT#: [id number] DC DATE: STATUS: ADM [facility] [address] [place] [address] END OF REPORT
--- NOTE | 2019-03-10 07:54 | MORECARE ---
CASE MANAGEMENT DISCHARGE SUMMARY PATIENT: MANA SAXENA UNIT: [id number] ADM DATE: 02/24/19 AGE: 78 : 36 SEX: M ROOM/BED: D.2102 AUTHOR: BJ,DOC PHYSICIAN: REFERRING PHYSICIAN: CASEY NAIDU MD DATE OF SERVICE: 03/10/19 Discharge Plan Patient Name: MANA SAXENA Facility: [facility]:[place] : 1940 Planned Disposition: [facility] Facility Anticipated Discharge Date: 02/24/19 Discharge Date: Expected LOS: 1 Initial Reviewer: [id number] Initial Review Date: 02/22/2019 Generated: 03/10/19 8:54 am Comments DCP- Discharge Planning Updated by [id number]: Ibrahima Nelson on 03/10/19 6:[address] Patient Name: MANA SAXENA Encounter No: [id number] : 1940 Primary Insurance: AETNA MEDICARE PPO or HMO Anticipated DC Date: 02-24-2019 Planned Disposition: [facility] Facility External Planned Provider:[facility], MEDICARE REHAB BED DCP follow-up note: CM FAXED UDPATE WITH OT EVALUATION TO UBALDO AT [facility] AT [phone]. [facility] IS TRYING TO GET APPROVAL FOR OUT OF NETWORK SKILLED REHAB BENEFITS. CM WAITING ADMISSION DETERMINATION FROM [facility] FOR REHAB. PT WILL NEED TO HAVE INSURANCE AUTHORIZATION FOR REHAB SERVICES. IBRAHIMA NELSON, CASE VERO DCP- Discharge Planning Updated by [id number]: Ibrahima Nelson on 03/09/19 10:[address] Patient Name: MANA SAXENA Encounter No: [id number] : 1940 Primary Insurance: AETNA MEDICARE PPO or HMO Anticipated DC Date: 02-24-2019 Planned Disposition: [facility] Facility External Planned Provider:[facility], MEDICARE REHAB BED DCP follow-up note: CM REVIEWED CHART, OBTAINED ORDER FOR OCCUPATIONAL THERAPY EVALUATION. CM FAXED UPDATED REFERRAL TO [facility], . CM RECEIVED CALL FROM UBALDO OF [facility], , [facility] IS NOT IN NETWORK WITH PT'S INSURANCE AND THEY HAVE SUBMITTED TO INSURANCE TO SEE IF INSURANCE WILL COVER REHAB AT [facility]. CM WAITING ADMISSION DETERMINATION FROM [facility] FOR REHAB. PT WILL NEED TO HAVE INSURANCE AUTHORIZATION FOR REHAB SERVICES. IBRAHIMA NELSON CASE MANAGEMENT DCP- Discharge Planning Updated by [id number]: Ibrahima Nelson on 03/03/19 9:[address] Patient Name: MANA SAXENA Encounter No: [id number] : 1940 Primary Insurance: AETNA MEDICARE PPO or HMO Anticipated DC Date: 02-24-2019 Planned Disposition: [facility] Facility External Planned Provider: [facility], MEDICARE REHAB BED DCP follow-up note: CM RECEIVED CALL FROM PREETHI OF [facility], UPDATE PROVIDED VIA PHONE; [facility] CANCELLED REFERRAL AND INSTRUCTED CM TO SEND REFERRAL WHEN PT IS BETTER AND IF PT STILL NEEDS INPATIENT REHAB SERVICES. CM WAITING ADMISSION DETERMINATION FROM [facility] FOR REHAB OR SKILLED NURSING CARE. PT WILL NEED TO HAVE INSURANCE AUTHORIZATION WHEN OCCUPATIONAL THERAPY EVALUATION HAS BEEN COMPLETED AND RECEIVED BY [facility]. IBRAHIMA NELSON CASE MANAGEMENT DCP- Discharge Planning Updated by [id number]: Ibrahima Nelson on 03/02/19 10:[address] Patient Name: MANA SAXENA Encounter No: [id number] : 1940 Primary Insurance: AETNA MEDICARE PPO or HMO Anticipated DC Date: 02-24-2019 Planned Disposition: Inpatient Rehab External Planned Provider: [facility] DCP follow-up note: CM RECEIVED CALL FROM IAN OF [facility], THEY HAVE ACCEPTED MEDICALLY AND WILL SUBMIT TO INSURANCE FOR AUTHORIZATION FOR INPATIENT REHAB SERVICES. CM ADVISED THAT PT HAD MOVED TO ICU THIS MORNING AND THAT PT HAS BEEN REFUSING THERAPY SERVICES AND FURTHER THAT OCCUPATIONAL THERAPY EVALUATION HAS NOT YET BEEN COMPLETED. IAN WILL FOLLOW UP WITH CALL TO PT'S TO DISCUSS COMPLIANCE WITH THERAPY SERVICES TO SEE IF THE SPOUSE CAN SPEAK TO PT. CM WAITING RETURN CALL FROM PT'S SPOUSE, QUEEN ODESSA. [facility] WILL SUBMIT TO PT'S INSURANCE COMPANY FOR INPATIENT REHAB AUTHORIZATION WHEN OCCUPATIONAL THERAPY EVALUATION HAS BEEN COMPLETED AND RECEIVED. CM WAITING ADMISSION DETERMINATION FROM [facility] OR REHAB OR [facility] CARE. PT WILL NEED TO HAVE INSURANCE AUTHORIZATION WHEN OCCUPATIONAL THERAPY EVALUATION HAS BEEN COMPLETED AND RECEIVED BY [facility]. FATOUMATA BHATT DCP- Discharge Planning Updated by [id number]: Ibrahima Nelson on 03/01/19 3:[address] Patient Name: MANA SAXENA Encounter No: [id number] : 1940 Primary Insurance: AETNA MEDICARE PPO or HMO Anticipated DC Date: 02-24-2019 Planned Disposition: Inpatient Rehab External Planned Provider: [facility] DCP follow-up note: CM REVIEWED CHART, OCCUPATIONAL THERAPY EVALUATION HAS STILL NOT BEEN COMPLETED / DOCUMENTED. CM FAXED BASIC REFERRAL TO [facility] FOR INPATIENT REHAB CONSIDERATION AT [phone]. CM TO FAX UPDATE WITH OCCUPATIONAL THERAPY EVALUATION WHEN IT IS COMPLETED AND DOCUMENTED. Ibrahima Nelson CASE MANAGEMENT Appended by Ibrahima Nelson on 03/01/2019 16:14 CDT: CM REVIEWED CHART, PT REFUSED PHYSICAL THERAPY TODAY AND THERAPY HAS SIGNED OFF DUE TO PT REFUSAL. OCCUPATIONAL THERAPY EVALUATION STILL NOT COMPLETED. IT IS CM'S EXPERIENCE THAT INSURANCE WILL NOT PAY FOR REHAB SERVICES UNLESS PT IS PARTICIPATING, WHICH THIS PT IS NOT. CM SPOKE TO PT IN ROOM WHO REPORTS HE DID NOT UNDERSTAND; PT STATES HE IS GOING HOME. WHEN CM EXPLAINED IN SLOW DETAIL THAT PT'S SPOUSE WANTS HIM TO GO TO REHAB, PT YELLS AT THAT SOMETHING MUST BE WRONG AND TO CALL . CM CALLED QUEEN ODESSA, SPOUSE, , LEFT MESSAGE ASKING FOR RETURN CALL. CM FAXED REFERRAL TO [facility] IN [place] THAT THEY CAN GET AUTHORIZATION FOR REHAB WITH PT'S REFUSAL TO DO THERAPY OR AT LEAST CONSIDER FOR SKILLED NURSING CARE. CM WAITING RETURN CALL FROM PT'S SPOUSE, QUEEN ODESSA. CM WAITING ADMISSION DETERMINATION FROM [facility] OR REHAB OR [facility] BOWLS PAINT TRIMMER CARE. FATOUMATA BHATT DCP- Discharge Planning Updated by [id number]: Ibrahima Nelson on 02/26/19 12:[address] Patient Name: MANA SAXENA Encounter No: [id number] : 1940 Primary Insurance: AETNA MEDICARE PPO or HMO Anticipated DC Date: 02-24-2019 Planned Disposition: Inpatient Rehab External Planned Provider: [facility] DCP follow-up note: CM RECEIVED CALL FROM AYUSH OF [facility]; SHE HAD CALLED PT'S SPOUSE TO ARRANGE DELIVERY OF MANUAL WHEELCHAIR AND SPOUSE REFUSED IT STATING THAT SHE CANNOT PHYSICALLY PUSH PT IN A WHEELCHAIR AND REQEUSTED A POWER CHAIR. CM ATTEMPTED TO SEE PT'S SPOUSE IN ROOM, SHE WAS NOT THERE. CM CALLED QUEEN ODESSA, . CM INFORMED THAT AN ELECTRIC WHEELCHAIR REQUIRES VERY DETAILED AND LENGHTY DOCUMENTATION THAT CANNOT BE DONE FROM HOSPITAL, REFERRED HER TO PT'S PRIMARY CARE DOCTOR. CM DISCUSSED AVAILABILITY OF REHAB SERVICES, PROVIDERS AND LOCATIONS. REPORTS SHE IS OLDER THAN PT AND IS HAVING TROUBLE CARING FOR PT IN HIS WEAKENED STATE AND WOULD LIKE REHAB AT [facility] FIRST CHOICE AND [facility]OND, [facility] THIRD BUT WILL NOT CONSIDER [facility] IN [place]. CHOICE LETTER COMPLETED. CHART REVIEWED, PHYSICAL THERAPY EVALUATION STILL PENDING, NO OCCUPATIONAL THERAPY HAD BEEN ORDERED. CM OBTAINED ORDER FOR OCCUPATIONAL THERAPY EVALUATION. CM TO PROVIDE REFERRAL TO [facility] FOR INPATIENT REHAB CONSIDERATION ONCE PHYSICAL AND OCCUPATIONAL THERAPY EVALUATIONS ARE COMPLETED. Ibrahima Nelson, CASE MANAGEMENT DCP- Discharge Planning Updated by [id number]: Ibrahima Nelson on 02/23/19 3:[address] Patient Name: MANA SAXENA Admission Status: ER Accout number: [id number] Admission Date: 02-22-2019 : 1940 Admission Diagnosis: Attending: CASEY NAIDU Current LOS: 1 Anticipated DC Date: 02-24-2019 Planned Disposition: Home with Home Health Primary Insurance: UNINSURED DISCOUNT PLAN PLANNED EXTERNAL PROVIDER: [facility] Discharge Planning Comments: CM RECEIVED ORDER FOR HOME HEALTH. CM MET WITH PT AND SPOUSE IN ROOM TO DISCUSS DISCHARGE PLANNING AND NEEDS. MANA SAXENA provided verbal consent to discuss current and ongoing needs with/in the presence of: SPOUSE, . ANSWERED ALL QUESTIONS. PT LIVING AT HOME DEPENDENTLY WITH SPOUSE WHO ASSISTS WITH MEDICATIONS. PT HAS BEEN GETTING WEAKER AND NOW NEEDS ASSISTANCE WITH BATHING. PT HAS WALKER WITH WHEELS, SEAT AND BRAKES AND NO MEDICAL EQUIPMENT PROVIDER PREFERENCE. PT HAS HOME HEALTH WITH [facility] FOR NURSING AND PHYSICAL THERAPY. CM DISCUSSED AVAILABILITY OF HOME HEALTH, REHAB SERVICES AND MEDICAL EQUIPMENT. PT'S SPOUSE WANTS [facility] RESUMPTION AND REPORTS NEEDING A WHEELCHAIR PT IS NO LONGER ABLE TO CLIMB THE STEPS TO GET ON THE MEDICAID BUS FOR DIALYSIS TRANSPORTATION. PT GOES TO DIALYSIS IN [place] ON MWF SCHEDULE. PT'S FAMILY TO TRANSPORT HOME AT DISCHARGE. CHOICE SIGNED FOR [facility], CHOICE FOR NO PREFERENCE FOR MEDICAL EQUIPMENT PROVIDER COMPLETED BY [facility]. CM COLLECTED REGISTRATION INFORMATION AND FORWARDED TO [place] OF REGISTRATION. CM SPOKE TO BOWEN TEJADA WHO PROVIDED ORDER FOR WHEELCHAIR. CM CALLED [facility], , SPOKE TO AYUSH AND PROVIDED REFERRAL INFORMATION FOR WHEELCHAIR. CM FAXED ORDER AND CHART INFORMATION TO [facility] AT [phone]. [facility]IENT TO PROCESS ORDER FOR WHEELCHAIR DELIVERY TO PT IF QUALIFIES; PT'S INSURANCE REQUIRES PRIOR AUTHORIZATION. CM CALLED [facility], , SPOKE TO KURT, PROVIDED REFERRAL INFORMATION, PT IS ON SERVICES WITH [facility] ALREADY.. CM FAXED REFERRAL INFORMATION TO [facility], . FOR DISCHARGE, NOTIFY [facility] AT [phone]; FAX DISCHARGE INFORMATION TO [facility] AT [phone]. Cloth Cutting Inspector: Ibrahima Nelson DCPIA - Discharge Planning Initial Assessment Updated by [id number]: Ibrahima Nelson on 02/23/19 3:52 pm * Is the patient Alert and Oriented? Yes * How many steps to enter\exit or inside your home? RAMP * PCP DR. VIC PAREDES IN [place] * Pharmacy [facility] IN [place] * Preadmission Environment Home with Family * ADLs Partial Dependent * Partial ADLs (Assistance needed) Bathing Medication Management * Equipment Rolling Walker * Other Equipment ROLLING WALKER WITH SEAT AND BRAKES NO MEDICAL EQUIPMENT PROVIDER PREFERENCE * List name and contact numbers for known caregivers / representatives who currently or will assist patient after discharge: QUEEN ODESSA, SPOUSE, IDRIS SAXENA, NIECE, * Verbal permission to speak to the caregivers and representatives has been obtained from the patient. Yes * Community resources currently utilized Home Health * Please name any agencies selected above. [facility] NURSING AND PHYSICAL THERAPY * Additional services required to return to the preadmission environment? No * Can the patient safely return to the preadmission environment? Yes * Has this patient been hospitalized within the prior 30 days at any hospital? Yes Coverage Notice Reviewer: [id number] - Ibrahima Nelson Notice Issued Date-Time: 02/23/2019 15:15 Notice Type: Patient Choice Letter Notice Delivered To: Family Member Relationship to Patient: Spouse Lead Bi Developer Name: QUEEN ODESSA Delivery Method: HAND - Hand Delivered Cristina Days: Prior Verbal Notification: Recipient Understood Notice: Yes Recipient Signature: Yes Med Rec Note Co-signed by Attending: Coverage Notice Comment: ANY MEDICAL EQUIPMENT COMPANY SERVICING [place] // [facility] Reviewer: [id number] Edilia Nelson Notice Issued Date-Time: 02/26/2019 12:00 Notice Type: Patient Choice Letter Notice Delivered To: Family Member Relationship to Patient: Spouse Lead Bi Developer Name: QUEEN ODESSA Delivery Method: PHONE - Phone Cristina Days: Prior Verbal Notification: Recipient Understood Notice: Yes Recipient Signature: Med Rec Note Co-signed by Attending: Coverage Notice Comment: [facility]- [facility] 3-[facility] NOT [facility]!! Last DP export: 03/10/19 6:29 a Patient Name: MANA SAXENA Page [phone] at 0754 All edits/amendments must be made on the electronic document DICTATION DATE: 03/10/19 0754 OBIEE LEAD DEVELOPER: GRACE 03/10/19 0754 RPT#: [id number] DC DATE: STATUS: ADM IN [facility] [address] [place] [address] END OF REPORT
--- NOTE | 2019-03-10 08:05 | NUR ---
MORNING ROUNDS MADE. PT STATED HE WOULD LIKE TO SIT UP IN CHAIR FOR BREAKFAST. INFORMED PT THAT I WOULD NEED TO GET ASSISTANCE. PT AGREED. PT A/O X 4. 02 3L VIA NC. CVL TO [place], ERIN C/D/I, PATENT. TE-MOAK. BREATHING EVEN AND UNLABORED. NO FURTHER CONCERNS AT THIS TIME. FALL PRECAUTIONS IN PLACE. WILL CTM.
[2019-03-10 09:06] VITALS: BP 113/61
--- NOTE | 2019-03-10 09:44 | NUR ---
PT VITALS STABLE. TOOK MEDS WITHOUT DIFFICULTY. DENIES PAIN AT THIS TIME. BED LOWERED AND LOCKED. CL IN REACH. WILL CTM.
--- NOTE | 2019-03-10 11:39 | NUR ---
PT TAKEN TO HD VIA BED.
--- NOTE | 2019-03-10 11:41 | NUR ---
I have reviewed this patient and I concur with the Shift Assessment completed by the Licensed Practical Nurse today this shift.
--- NOTE | 2019-03-10 14:09 | NUR ---
PT BACK FROM HD VIA BED
--- NOTE | 2019-03-10 14:16 | NUR ---
PT UP TO CHAIR FOR LUNCH
--- NOTE | 2019-03-10 15:10 | MORECARE ---
CASE MANAGEMENT DISCHARGE SUMMARY PATIENT: MANA SAXENA UNIT: [id number] ADM DATE: 02/24/19 AGE: 78 : 36 SEX: M ROOM/BED: D.2102 AUTHOR: BJ,DOC PHYSICIAN: REFERRING PHYSICIAN: CASEY NAIDU MD DATE OF SERVICE: 03/10/19 Discharge Plan Patient Name: MANA SAXENA Facility: [facility]:[place] : 1940 Planned Disposition: Usp Facility Anticipated Discharge Date: 02/24/19 Discharge Date: Expected LOS: 1 Initial Reviewer: [id number] Initial Review Date: 02/22/2019 Generated: 03/10/19 4:10 pm Comments DCP- Discharge Planning Updated by [id number]: Ibrahima Nelson on 03/10/19 2:[address] Patient Name: MANA SAXENA Encounter No: [id number] : 1940 Primary Insurance: AETNA MEDICARE PPO or HMO Anticipated DC Date: 02-24-2019 Planned Disposition: Usp Facility External Planned Provider:[facility], MEDICARE REHAB BED DCP follow-up note: CM FAXED UDPATE WITH OT EVALUATION TO UBALDO AT [facility] AT [phone]. [facility] IS TRYING TO GET APPROVAL FOR OUT OF NETWORK SKILLED REHAB BENEFITS. CM WAITING ADMISSION DETERMINATION FROM [facility] FOR REHAB. PT WILL NEED TO HAVE INSURANCE AUTHORIZATION FOR REHAB SERVICES. IBRAHIMA NELSON CASE MANAGEMENT Appended by Ibrahima Nelson on 03/10/2019 15:03 CDT: CM RECEIVED CALL FROM UBALDO OF [employer], , WHO INFORMED CM THAT THEY ARE STILL TRYING TO CONNECT WITH PT'S INSURANCE COMPANY TO REQUEST AUTHORIZATION OF SERVICES. CM PROVIDED PT'S SOCIAL SECURITY NUMBER AND FAXED UDPATE TO UBALDO AT [facility] AT [phone]. [facility] IS TRYING TO GET APPROVAL FOR OUT OF NETWORK SKILLED REHAB BENEFITS. CM WAITING ADMISSION DETERMINATION FROM [facility] FOR REHAB. PT WILL NEED TO HAVE INSURANCE AUTHORIZATION FOR REHAB SERVICES. FATOUMATA BHATT DCP- Discharge Planning Updated by [id number]: Ibrahima Nelson on 03/09/19 10:[address] Patient Name: MANA SAXENA Encounter No: [id number] : 1940 Primary Insurance: AETNA MEDICARE PPO or HMO Anticipated DC Date: 02-24-2019 Planned Disposition: Usp Facility External Planned Provider:[facility], MEDICARE REHAB BED DCP follow-up note: CM REVIEWED CHART, OBTAINED ORDER FOR OCCUPATIONAL THERAPY EVALUATION. CM FAXED UPDATED REFERRAL TO [facility], . CM RECEIVED CALL FROM UBALDO OF [facility], , [facility] IS NOT IN NETWORK WITH PT'S INSURANCE AND THEY HAVE SUBMITTED TO INSURANCE TO SEE IF INSURANCE WILL COVER REHAB AT [facility]. CM WAITING ADMISSION DETERMINATION FROM [facility] FOR REHAB. PT WILL NEED TO HAVE INSURANCE AUTHORIZATION FOR REHAB SERVICES. FATOUMATA BHATT MANAGEMENT DCP- Discharge Planning Updated by [id number]: Ibrahima Nelson on 03/03/19 9:[address] Patient Name: MANA SAXENA Encounter No: [id number] : 6 Primary Insurance: AETNA MEDICARE PPO or HMO Anticipated DC Date: 02-24-2019 Planned Disposition: Usp Facility External Planned Provider: [facility], MEDICARE REHAB BED DCP follow-up note: CM RECEIVED CALL FROM [facility], UPDATE PROVIDED VIA PHONE; D[facility]GLAS CANCELLED REFERRAL AND INSTRUCTED CM TO SEND REFERRAL WHEN PT IS BETTER AND IF PT STILL NEEDS INPATIENT REHAB SERVICES. CM WAITING ADMISSION DETERMINATION FROM [facility] FOR REHAB OR LONG-TERM CARE. PT WILL NEED TO HAVE INSURANCE AUTHORIZATION WHEN OCCUPATIONAL THERAPY EVALUATION HAS BEEN COMPLETED AND RECEIVED BY LONG-TERM FACILITY. FATOUMATA BHATT DCP- Discharge Planning Updated by [id number]: Ibrahima Nelson on 03/02/19 10:[address] Patient Name: MANA SAXENA Encounter No: [id number] : 1940 Primary Insurance: AETNA MEDICARE PPO or HMO Anticipated DC Date: 02-24-2019 Planned Disposition: Inpatient Rehab External Planned Provider: [facility] DCP follow-up note: CM RECEIVED [facility] THEY HAVE ACCEPTED MEDICALLY AND WILL SUBMIT TO INSURANCE FOR AUTHORIZATION FOR INPATIENT REHAB SERVICES. CM ADVISED THAT PT HAD MOVED TO ICU THIS MORNING AND THAT PT HAS BEEN REFUSING THERAPY SERVICES AND FURTHER THAT OCCUPATIONAL THERAPY EVALUATION HAS NOT YET BEEN COMPLETED. IAN WILL FOLLOW UP WITH CALL TO PT'S TO DISCUSS COMPLIANCE WITH THERAPY SERVICES TO SEE IF THE SPOUSE CAN SPEAK TO PT. CM WAITING RETURN CALL FROM PT'S SPOUSE, QUEEN ODESSA. [facility] WILL SUBMIT TO PT'S INSURANCE COMPANY FOR INPATIENT REHAB AUTHORIZATION WHEN OCCUPATIONAL THERAPY EVALUATION HAS BEEN COMPLETED AND RECEIVED. CM WAITING ADMISSION DETERMINATION FROM [facility] OR REHAB OR [facility]. PT WILL NEED TO HAVE INSURANCE AUTHORIZATION WHEN OCCUPATIONAL THERAPY EVALUATION HAS BEEN COMPLETED AND RECEIVED BY LONG-TERM FACILITY. IBRAHIMA NELSON CASE MANAGEMENT DCP- Discharge Planning Updated by [id number]: Ibrahima Nelson on 03/01/19 3:[address] Patient Name: MANA SAXENA Encounter No: [id number] : 1940 Primary Insurance: AETNA MEDICARE PPO or HMO Anticipated DC Date: 02-24-2019 Planned Disposition: Inpatient Rehab External Planned Provider: [facility] DCP follow-up note: [facility] REVIEWED CHART, OCCUPATIONAL THERAPY EVALUATION HAS STILL NOT BEEN COMPLETED / DOCUMENTED. CM FAXED BASIC REFERRAL TO [facility] FOR INPATIENT REHAB CONSIDERATION AT [phone]. CM TO FAX UPDATE WITH OCCUPATIONAL THERAPY EVALUATION WHEN IT IS COMPLETED AND DOCUMENTED. Ibrahima Nelson CASE MANAGEMENT Appended by Ibrahima Nelson on 03/01/2019 16:14 CDT: [facility] REVIEWED CHART, PT REFUSED PHYSICAL THERAPY TODAY AND THERAPY HAS SIGNED OFF DUE TO PT REFUSAL. OCCUPATIONAL THERAPY EVALUATION STILL NOT COMPLETED. IT IS CM'S EXPERIENCE THAT INSURANCE WILL NOT PAY FOR REHAB SERVICES UNLESS PT IS PARTICIPATING, WHICH THIS PT IS NOT. CM SPOKE TO PT IN ROOM WHO REPORTS HE DID NOT UNDERSTAND; PT STATES HE IS GOING HOME. WHEN CM EXPLAINED IN SLOW DETAIL THAT PT'S SPOUSE WANTS HIM TO GO TO REHAB, PT YELLS AT THAT SOMETHING MUST BE WRONG AND TO CALL . CM CALLED QUEEN ODESSA, SPOUSE, , LEFT MESSAGE ASKING FOR RETURN CALL. CM FAXED REFERRAL TO [facility] [place] THAT THEY CAN GET AUTHORIZATION FOR REHAB WITH PT'S REFUSAL TO DO THERAPY OR AT LEAST CONSIDER FOR LONG-TERM CARE. CM WAITING RETURN CALL FROM PT'S SPOUSE, QUEEN ODESSA. CM WAITING ADMISSION DETERMINATION FROM [facility] OR REHAB OR LONG-TERM CARE. FATOUMATA BHATT DCP- Discharge Planning Updated by [id number]: Ibrahima Nelson on 02/26/19 12:[address] Patient Name: MANA SAXENA Encounter No: [id number] : 1940 Primary Insurance: AETNA MEDICARE PPO or HMO Anticipated DC Date: 02-24-2019 Planned Disposition: Inpatient Rehab External Planned Provider: [facility] DCP follow-up note: CM RECEIVED CALL FROM AYUSH OF [facility]; SHE HAD CALLED PT'S SPOUSE TO ARRANGE DELIVERY OF MANUAL WHEELCHAIR AND SPOUSE REFUSED IT STATING THAT SHE CANNOT PHYSICALLY PUSH PT IN A WHEELCHAIR AND REQEUSTED A POWER CHAIR. CM ATTEMPTED TO SEE PT'S SPOUSE IN ROOM, SHE WAS NOT THERE. CM CALLED QUEEN ODESSA, . CM INFORMED THAT AN ELECTRIC WHEELCHAIR REQUIRES VERY DETAILED AND LENGHTY DOCUMENTATION THAT CANNOT BE DONE FROM HOSPITAL, REFERRED HER TO PT'S PRIMARY CARE DOCTOR. CM DISCUSSED AVAILABILITY OF REHAB SERVICES, PROVIDERS AND LOCATIONS. REPORTS SHE IS OLDER THAN PT AND IS HAVING TROUBLE CARING FOR PT IN HIS WEAKENED STATE AND WOULD LIKE REHAB AT [facility] FIRST CHOICE AND [facility] SECOND, [facility] THIRD BUT WILL NOT CONSIDER [place] IN [place]. CHOICE LETTER COMPLETED. CHART REVIEWED, PHYSICAL THERAPY EVALUATION STILL PENDING, NO OCCUPATIONAL THERAPY HAD BEEN ORDERED. CM OBTAINED ORDER FOR OCCUPATIONAL THERAPY EVALUATION. CM TO PROVIDE REFERRAL TO [facility] FOR INPATIENT REHAB CONSIDERATION ONCE PHYSICAL AND OCCUPATIONAL THERAPY EVALUATIONS ARE COMPLETED. FATOUMATA Bhatt DCP- Discharge Planning Updated by [id number]: Ibrahima Nelson on 02/23/19 3:[address] Patient Name: MANA SAXENA Admission Status: ER Accout number: [id number] Admission Date: 02-22-2019 : 1940 Admission Diagnosis: Attending: CASEY NAIDU Current LOS: 1 Anticipated DC Date: 02-24-2019 Planned Disposition: Home with Home Health Primary Insurance: UNINSURED DISCOUNT PLAN PLANNED EXTERNAL PROVIDER: [facility] Discharge Planning Comments: CM RECEIVED ORDER FOR HOME HEALTH. CM MET WITH PT AND SPOUSE IN ROOM TO DISCUSS DISCHARGE PLANNING AND NEEDS. MANA SAXENA provided verbal consent to discuss current and ongoing needs with/in the presence of: SPOUSE, . ANSWERED ALL QUESTIONS. PT LIVING AT HOME DEPENDENTLY WITH SPOUSE WHO ASSISTS WITH MEDICATIONS. PT HAS BEEN GETTING WEAKER AND NOW NEEDS ASSISTANCE WITH BATHING. PT HAS WALKER WITH WHEELS, SEAT AND BRAKES AND NO MEDICAL EQUIPMENT PROVIDER PREFERENCE. PT HAS HOME HEALTH WITH [facility] FOR NURSING AND PHYSICAL THERAPY. CM DISCUSSED AVAILABILITY OF HOME HEALTH, REHAB SERVICES AND MEDICAL EQUIPMENT. PT'S SPOUSE WANTS [facility] AND REPORTS NEEDING A WHEELCHAIR PT IS NO LONGER ABLE TO CLIMB THE STEPS TO GET ON THE MEDICAID BUS FOR DIALYSIS TRANSPORTATION. PT GOES TO DIALYSIS IN [place] ON MWF SCHEDULE. PT'S FAMILY TO TRANSPORT HOME AT DISCHARGE. CHOICE SIGNED FOR [facility], CHOICE FOR NO PREFERENCE FOR MEDICAL EQUIPMENT PROVIDER COMPLETED BY [facility]. CM COLLECTED REGISTRATION INFORMATION AND FORWARDED TO [facility] OF REGISTRATION. CM SPOKE TO BOWEN TEJADA WHO PROVIDED ORDER FOR WHEELCHAIR. CM CALLED [facility] PATIENT, , SPOKE TO AYUSH AND PROVIDED REFERRAL INFORMATION FOR WHEELCHAIR. CM FAXED ORDER AND CHART INFORMATION TO [facility] PATIENT AT [phone]. [facility] PATIENT TO PROCESS ORDER FOR WHEELCHAIR DELIVERY TO PT IF QUALIFIES; PT'S INSURANCE REQUIRES PRIOR AUTHORIZATION. CM CALLED [facility], , SPOKE TO KURT, PROVIDED REFERRAL INFORMATION, PT IS ON SERVICES WITH [facility] ALREADY.. CM FAXED REFERRAL INFORMATION TO [facility], . FOR DISCHARGE, NOTIFY [facility] AT [phone]; FAX DISCHARGE INFORMATION TO [facility] AT [phone]. Automat Watcher: Ibrahima Nelson DCPIA - Discharge Planning Initial Assessment Updated by [id number]: Ibrahima Nelson on 02/23/19 3:52 pm * Is the patient Alert and Oriented? Yes * How many steps to enter\exit or inside your home? RAMP * PCP DR. VIC PAREDES IN [place] * Pharmacy [facility] IN [place] * Preadmission Environment Home with Family * ADLs Partial Dependent * Partial ADLs (Assistance needed) Bathing Medication Management * Equipment Rolling Walker * Other Equipment ROLLING WALKER WITH SEAT AND BRAKES NO MEDICAL EQUIPMENT PROVIDER PREFERENCE * List name and contact numbers for known caregivers / representatives who currently or will assist patient after discharge: QUEEN ODESSA, SPOUSE, IDRIS SAXENA, NIECE, * Verbal permission to speak to the caregivers and representatives has been obtained from the patient. Yes * Community resources currently utilized Home Health * Please name any agencies selected above. [facility], NURSING AND PHYSICAL THERAPY * Additional services required to return to the preadmission environment? No * Can the patient safely return to the preadmission environment? Yes * Has this patient been hospitalized within the prior 30 days at any hospital? Yes Coverage Notice Reviewer: [id number] Nelson Notice Issued Date-Time: 02/23/2019 15:15 Notice Type: Patient Choice Letter Notice Delivered To: Family Member Relationship to Patient: Spouse Impact Hammer Operator Name: QUEEN ODESSA Delivery Method: HAND - Hand Delivered Cristina Days: Prior Verbal Notification: Recipient Understood Notice: Yes Recipient Signature: Yes Med Rec Note Co-signed by Attending: Coverage Notice Comment: ANY MEDICAL EQUIPMENT COMPANY SERVICING [place] // [facility] Reviewer: [id number] Edilia Nelson Notice Issued Date-Time: 02/26/2019 12:00 Notice Type: Patient Choice Letter Notice Delivered To: Family Member Relationship to Patient: Spouse Impact Hammer Operator Name: QUEEN ODESSA Delivery Method: PHONE - Phone Cristina Days: Prior Verbal Notification: Recipient Understood Notice: Yes Recipient Signature: Med Rec Note Co-signed by Attending: Coverage Notice Comment: [facility]- [facility] 3-[facility] NOT [place]!! Last DP export: 03/10/19 6:54 a Patient Name: MANA SAXENA Page [id number] at 1510 All edits/amendments must be made on the electronic document DICTATION DATE: 03/10/19 151 [employer]: GRACE 03/10/19 151 RPT#: [id number] DC DATE: STATUS: ADM IN [facility] [address] [place] [address] END OF REPORT
[2019-03-10 16:09] VITALS: BP 130/51
--- NOTE | 2019-03-10 19:38 | NUR ---
PATIENT LAYING IN BED. EYES CLOSED, CHEST RISING AND FALLING. NO DISTRESS NOTED.
[2019-03-10 20:00] VITALS: BP 117/60
[2019-03-11 00:03] VITALS: BP 108/49
--- NOTE | 2019-03-11 00:13 | NUR ---
PATIENT LAYING IN BED. EYES CLOSED, CHEST RISING AND FALLING. NO DISTRESS NOTED.
--- NOTE | 2019-03-11 02:01 | NUR ---
I have reviewed this patient and I concur with the Shift Assessment completed by the Licensed Practical Nurse today this shift.
[2019-03-11 04:00] VITALS: BP 123/69
[2019-03-11 06:23] LABS: BASOPHILS 0.2 % (0-2); EOSINOPHILS 0.6 % (0-7); HEMATOCRIT 24.6 % (42.0-54.0); IMMATURE GRANULOCYTES 0.3 % (0-5); LYMPHOCYTES 8.7 % (15-50); MCH 29.6 pg (26.0-34.0); MCHC 32.5 g/dL (31.0-37.0); MCV 91.1 fL (80.0-100.0); MONOCYTES 11.4 % (2-11); NEUTROPHILS 78.8 % (40-80); PLATELET COUNT 82 10x3/uL (130-400); RDW 18.8 % (11.5-14.5)
[2019-03-11 06:26] LABS: WBC 6.4 10x3/uL (4.8-10.8)
--- NOTE | 2019-03-11 06:33 | NUR ---
PATIENT LAYING IN BED, EYES CLOSED, CHEST RISING AND FALLING. NO DISTRESS NOTED.
[2019-03-11 06:45] LABS: ANION GAP 14.2 mmol/L (8-16); CALCIUM 8.2 mg/dL (8.5-10.1); CARBON DIOXIDE 26.4 mmol/L (21.0-32.0); CREATININE - SERUM 5.4 mg/dL (0.6-1.3); PHOSPHOROUS 3.9 mg/dL (2.5-4.9); POTASSIUM - SERUM 3.6 mmol/L (3.5-5.1); VANCOMYCIN - RANDOM 14.7 ug/mL (10.0-20.0)
[2019-03-11 06:46] LABS: APTT 42.6 SECONDS (22.8-39.4); INR 1.27 (0.85-1.17); PROTIME 15.3 SECONDS (11.6-15.0)
--- NOTE | 2019-03-11 07:30 | NUR ---
ASSESSMENT COMPLETE. NPO FOR PROCEDURE TODAY. [facility]ISH[facility]F [facility]. DRESSING INTACT TO [facility]. L AVF. L GROIN CVL SL. WANTS TO GO HOME. DENIES ANY NEEDS AT THIS TIME.
--- NOTE | 2019-03-11 08:02 | NUR ---
OFF FLOOR TO SPECIALS VIA BED.
[2019-03-11 08:22] LABS: PLATELET ESTIMATE DECREASED
--- NOTE | 2019-03-11 09:30 | NUR ---
RETURNED TO ROOM FROM [facility]. VSS.
--- NOTE | 2019-03-11 11:55 | NUR ---
VISITING WITH FAMILY. WANTING TO GO HOME. STATES HE'S BEEN HER TOO LONG.
[2019-03-11 12:05] LABS: PROTEIN - BODY FLUID 1.5 G/DL
[2019-03-11 12:25] VITALS: BP 104/82
--- NOTE | 2019-03-11 13:17 | NUR ---
SITTING UP IN CHAIR. FAMILY AT BEDSIDE. DENIES ANY NEEDS AT THIS TIME.
[2019-03-11 14:08] LABS: EOS BF 2 %; MACROPHAGES BF 20 %; MESOTHELIALS BF 6 %; NEUT - BF 28 %
--- NOTE | 2019-03-11 14:12 | MORECARE ---
CASE MANAGEMENT DISCHARGE SUMMARY PATIENT: MANA SAXENA UNIT: [id number] ADM DATE: 02/24/19 AGE: 78 : 36 SEX: M ROOM/BED: D.2102 AUTHOR: BJ,DOC PHYSICIAN: REFERRING PHYSICIAN: CASEY NAIDU MD DATE OF SERVICE: 03/11/19 Discharge Plan Patient Name: MANA SAXENA Facility: [facility]:[place] : 1940 Planned Disposition: Jail Facility Anticipated Discharge Date: 02/24/19 Discharge Date: Expected LOS: 1 Initial Reviewer: [id number] Initial Review Date: 02/22/2019 Generated: 03/11/19 3:11 pm DCP- Discharge Planning Updated by [email or web address]: Ibrahima Nelson on 03/10/19 2:[address] Patient Name: MANA SAXENA Encounter No: [id number] : 1940 Primary Insurance: AETNA MEDICARE PPO or HMO Anticipated DC Date: 02-24-2019 Planned Disposition: Jail Facility External Planned Provider:[facility], MEDICARE REHAB BED DCP follow-up note: CM FAXED UDPATE WITH OT EVALUATION TO UBALDO AT [facility] AT [phone]. [facility] IS TRYING TO GET APPROVAL FOR OUT OF NETWORK SKILLED REHAB BENEFITS. CM WAITING ADMISSION DETERMINATION FROM [facility] FOR REHAB. PT WILL NEED TO HAVE INSURANCE AUTHORIZATION FOR REHAB SERVICES. IBRAHIMA NELSON CASE MANAGEMENT Appended by Ibrahima Nelson on 03/10/2019 15:03 CDT: CM RECEIVED CALL FROM UBALDO OF [employer], , WHO INFORMED CM THAT THEY ARE STILL TRYING TO CONNECT WITH PT'S INSURANCE COMPANY TO REQUEST AUTHORIZATION OF SERVICES. CM PROVIDED PT'S SOCIAL SECURITY NUMBER AND FAXED UDPATE TO UBALDO AT [facility] AT [phone]. [facility] IS TRYING TO GET APPROVAL FOR OUT OF NETWORK SKILLED REHAB BENEFITS. CM WAITING ADMISSION DETERMINATION FROM [facility] FOR REHAB. PT WILL NEED TO HAVE INSURANCE AUTHORIZATION FOR REHAB SERVICES. FATOUMATA BHATT DCP- Discharge Planning Updated by [id number]: Ibrahima Nelson on 03/09/19 10:[address] Patient Name: MANA SAXENA Encounter No: [id number] : 1940 Primary Insurance: AETNA MEDICARE PPO or HMO Anticipated DC Date: 02-24-2019 Planned Disposition: Jail Facility External Planned Provider:[facility], MEDICARE REHAB BED DCP follow-up note: CM REVIEWED CHART, OBTAINED ORDER FOR OCCUPATIONAL THERAPY EVALUATION. CM FAXED UPDATED REFERRAL TO ON LICENSE OF [facility], . CM RECEIVED CALL FROM UBALDO OF [facility], , [facility] IS NOT IN NETWORK WITH PT'S INSURANCE AND THEY HAVE SUBMITTED TO INSURANCE TO SEE IF INSURANCE WILL COVER REHAB AT [facility]. CM WAITING ADMISSION DETERMINATION [facility]. PT WILL NEED TO HAVE INSURANCE AUTHORIZATION FOR REHAB SERVICES. IBRAHIMA NELSON CASE MANAGEMENT DCP- Discharge Planning Updated by [id number]: Ibrahima Nelson on 03/03/19 9:[address] Patient Name: MANA SAXENA Encounter No: [id number] : 6 Primary Insurance: AETNA MEDICARE PPO or HMO Anticipated DC Date: 02-24-2019 Planned Disposition: Jail Facility External Planned Provider: [facility], MEDICARE REHAB BED DCP follow-up note: CM RECEIVED CALL FROM PREETHI [facility], UPDATE PROVIDED VIA PHONE; DOUGLAS CANCELLED REFERRAL AND INSTRUCTED CM TO SEND REFERRAL WHEN PT IS BETTER AND IF PT STILL NEEDS INPATIENT REHAB SERVICES. CM WAITING ADMISSION DETERMINATION FROM [facility] FOR REHAB OR [facility]. PT WILL NEED TO HAVE INSURANCE AUTHORIZATION WHEN OCCUPATIONAL THERAPY EVALUATION HAS BEEN COMPLETED AND RECEIVED BY RETIREMENT FACILITY. FATOUMATA BHATT DCP- Discharge Planning Updated by [id number]: Ibrahima Nelson on 03/02/19 10:[address] Patient Name: MANA SAXENA Encounter No: [id number] : 1940 Primary Insurance: AETNA MEDICARE PPO or HMO Anticipated DC Date: 02-24-2019 Planned Disposition: Inpatient Rehab External Planned Provider: [facility] INPATIENT REHAB DCP follow-up note: CM RECEIVED CALL FROM IAN [facility], THEY HAVE ACCEPTED MEDICALLY AND WILL SUBMIT TO INSURANCE FOR AUTHORIZATION FOR INPATIENT REHAB SERVICES. CM ADVISED THAT PT HAD MOVED TO ICU THIS MORNING AND THAT PT HAS BEEN REFUSING THERAPY SERVICES AND FURTHER THAT OCCUPATIONAL THERAPY EVALUATION HAS NOT YET BEEN COMPLETED. IAN WILL FOLLOW UP WITH CALL TO PT'S TO DISCUSS COMPLIANCE WITH THERAPY SERVICES TO SEE IF THE SPOUSE CAN SPEAK TO PT. CM WAITING RETURN CALL FROM PT'S SPOUSE, QUEEN ODESSA. [facility] WILL SUBMIT TO PT'S INSURANCE COMPANY FOR INPATIENT REHAB AUTHORIZATION WHEN OCCUPATIONAL THERAPY EVALUATION HAS BEEN COMPLETED AND RECEIVED. CM WAITING ADMISSION DETERMINATION FROM [facility] OR REHAB OR [facility]. PT WILL NEED TO HAVE INSURANCE AUTHORIZATION WHEN OCCUPATIONAL THERAPY EVALUATION HAS BEEN COMPLETED AND RECEIVED BY RETIREMENT FACILITY. IBRAHIMA NELSON CASE MANAGEMENT DCP- Discharge Planning Updated by [id number]: Ibrahima Nelson on 03/01/19 3:[address] Patient Name: MANA SAXENA Encounter No: [id number] : 1940 Primary Insurance: AETNA MEDICARE PPO or HMO Anticipated DC Date: 02-24-2019 Planned Disposition: Inpatient Rehab External Planned Provider: [facility] INPATIENT REHAB DCP follow-up note: [facility] REVIEWED CHART, OCCUPATIONAL THERAPY EVALUATION HAS STILL NOT BEEN COMPLETED / DOCUMENTED. CM FAXED BASIC REFERRAL TO [facility] FOR INPATIENT REHAB CONSIDERATION AT [phone]. CM TO FAX UPDATE WITH OCCUPATIONAL THERAPY EVALUATION WHEN IT IS COMPLETED AND DOCUMENTED. Ibrahima Nelson, CASE MANAGEMENT Appended by Ibrahima Nelson on 03/01/2019 16:14 CDT: [facility] REVIEWED CHART, PT REFUSED PHYSICAL THERAPY TODAY AND THERAPY HAS SIGNED OFF DUE TO PT REFUSAL. OCCUPATIONAL THERAPY EVALUATION STILL NOT COMPLETED. IT IS CM'S EXPERIENCE THAT INSURANCE WILL NOT PAY FOR REHAB SERVICES UNLESS PT IS PARTICIPATING, WHICH THIS PT IS NOT. CM SPOKE TO PT IN ROOM WHO REPORTS HE DID NOT UNDERSTAND; PT STATES HE IS GOING HOME. WHEN CM EXPLAINED IN SLOW DETAIL THAT PT'S SPOUSE WANTS HIM TO GO TO REHAB, PT YELLS AT THAT SOMETHING MUST BE WRONG AND TO CALL . CM CALLED QUEEN ODESSA, SPOUSE, , LEFT MESSAGE ASKING FOR RETURN CALL. CM FAXED REFERRAL TO [facility] IN HOPES THAT THEY CAN GET AUTHORIZATION FOR REHAB WITH PT'S REFUSAL TO DO THERAPY OR AT LEAST CONSIDER FOR NURSING HOME CARE. CM WAITING RETURN CALL FROM PT'S SPOUSE, QUEEN ODESSA. CM WAITING ADMISSION DETERMINATION FROM [facility] OR REHAB OR [facility]IAN CARE. FATOUMATA BHATT DCP- Discharge Planning Updated by [id number]: Ibrahima Nelson on 02/26/19 12:[address] Patient Name: MANA SAXENA Encounter No: [id number] : 1940 Primary Insurance: AETNA MEDICARE PPO or HMO Anticipated DC Date: 02-24-2019 Planned Disposition: Inpatient Rehab External Planned Provider: [facility] INPATIENT REHAB DCP follow-up note: CM RECEIVED CALL FROM AYUSH OF [facility]; SHE HAD CALLED PT'S SPOUSE TO ARRANGE DELIVERY OF MANUAL WHEELCHAIR AND SPOUSE REFUSED IT STATING THAT SHE CANNOT PHYSICALLY PUSH PT IN A WHEELCHAIR AND REQEUSTED A POWER CHAIR. CM ATTEMPTED TO SEE PT'S SPOUSE IN ROOM, SHE WAS NOT THERE. CM CALLED QUEEN ODESSA, . CM INFORMED THAT AN ELECTRIC WHEELCHAIR REQUIRES VERY DETAILED AND LENGHTY DOCUMENTATION THAT CANNOT BE DONE FROM HOSPITAL, REFERRED HER TO PT'S PRIMARY CARE DOCTOR. CM DISCUSSED AVAILABILITY OF REHAB SERVICES, PROVIDERS AND LOCATIONS. REPORTS SHE IS OLDER THAN PT AND IS HAVING TROUBLE CARING FOR PT IN HIS WEAKENED STATE AND WOULD LIKE REHAB AT [facility] FIRST CHOICE AND [facility] SECOND, [facility] THIRD BUT WILL NOT CONSIDER [facility] IN [place]. CHOICE LETTER COMPLETED. CHART REVIEWED, PHYSICAL THERAPY EVALUATION STILL PENDING, NO OCCUPATIONAL THERAPY HAD BEEN ORDERED. CM OBTAINED ORDER FOR OCCUPATIONAL THERAPY EVALUATION. CM TO PROVIDE REFERRAL TO [facility] FOR INPATIENT REHAB CONSIDERATION ONCE PHYSICAL AND OCCUPATIONAL THERAPY EVALUATIONS ARE COMPLETED. FATOUMATA Bhatt DCP- Discharge Planning Updated by [id number]: Ibrahima Nelson on 02/23/19 3:[address] Patient Name: MANA SAXENA Admission Status: ER Accout number: [id number] Admission Date: 02-22-2019 : 1940 Admission Diagnosis: Attending: CASEY NAIDU Current LOS: 1 Anticipated DC Date: 02-24-2019 Planned Disposition: Home with Home Health Primary Insurance: UNINSURED DISCOUNT PLAN PLANNED EXTERNAL PROVIDER: [facility] Discharge Planning Comments: CM RECEIVED ORDER FOR HOME HEALTH. CM MET WITH PT AND SPOUSE IN ROOM TO DISCUSS DISCHARGE PLANNING AND NEEDS. MANA SAXENA provided verbal consent to discuss current and ongoing needs with/in the presence of: SPOUSE, . ANSWERED ALL QUESTIONS. PT LIVING AT HOME DEPENDENTLY WITH SPOUSE WHO ASSISTS WITH MEDICATIONS. PT HAS BEEN GETTING WEAKER AND NOW NEEDS ASSISTANCE WITH BATHING. PT HAS WALKER WITH WHEELS, SEAT AND BRAKES AND NO MEDICAL EQUIPMENT PROVIDER PREFERENCE. PT HAS HOME HEALTH WITH [facility] FOR NURSING AND PHYSICAL THERAPY. CM DISCUSSED AVAILABILITY OF HOME HEALTH, REHAB SERVICES AND MEDICAL EQUIPMENT. PT'S SPOUSE WANTS [facility] AND REPORTS NEEDING A WHEELCHAIR PT IS NO LONGER ABLE TO CLIMB THE STEPS TO GET ON THE MEDICAID BUS FOR DIALYSIS TRANSPORTATION. PT GOES TO DIALYSIS IN [place] ON MWF SCHEDULE. PT'S FAMILY TO TRANSPORT HOME AT DISCHARGE. CHOICE SIGNED FOR [facility], CHOICE FOR NO PREFERENCE FOR MEDICAL EQUIPMENT PROVIDER COMPLETED BY [facility]. CM COLLECTED REGISTRATION INFORMATION AND FORWARDED TO [facility] OF REGISTRATION. CM SPOKE TO BOWEN TEJADA WHO PROVIDED ORDER FOR WHEELCHAIR. CM CALLED [facility], , SPOKE TO AYUSH AND PROVIDED REFERRAL INFORMATION FOR WHEELCHAIR. CM FAXED ORDER AND CHART INFORMATION TO [facility] AT [phone]. [facility] TO PROCESS ORDER FOR WHEELCHAIR DELIVERY TO PT IF QUALIFIES; PT'S INSURANCE REQUIRES PRIOR AUTHORIZATION. CM CALLED [facility], , SPOKE TO KURT, PROVIDED REFERRAL INFORMATION, PT IS ON SERVICES WITH [facility] ALREADY.. CM FAXED REFERRAL INFORMATION TO [facility], . FOR DISCHARGE, NOTIFY [facility] AT [phone]; FAX DISCHARGE INFORMATION TO [facility] AT [phone]. Licensed Sales Assistant: Ibrahima Nelson DCPIA - Discharge Planning Initial Assessment Updated by [id number]: Ibrahima Nelson on 02/23/19 3:52 pm * Is the patient Alert and Oriented? Yes * How many steps to enter\exit or inside your home? RAMP * PCP DR. VIC PAREDES IN [place] * Pharmacy [facility] IN [place] * Preadmission Environment Home with Family * ADLs Partial Dependent * Partial ADLs (Assistance needed) Bathing Medication Management * Equipment Rolling Walker * Other Equipment ROLLING WALKER WITH SEAT AND BRAKES NO MEDICAL EQUIPMENT PROVIDER PREFERENCE * List name and contact numbers for known caregivers / representatives who currently or will assist patient after discharge: QUEEN ODESSA, SPOUSE, IDRIS SAXENA, NIECE, * Verbal permission to speak to the caregivers and representatives has been obtained from the patient. Yes * Community resources currently utilized Home Health * Please name any agencies selected above. [facility], NURSING AND PHYSICAL THERAPY * Additional services required to return to the preadmission environment? No * Can the patient safely return to the preadmission environment? Yes * Has this patient been hospitalized within the prior 30 days at any hospital? Yes External Providers External Provider: [facility] Next Contact Date: 03/11/2019 Service Request Date: Service Type: Resolution: Reviewer: Comments: Coverage Notice Reviewer: [id number] Edilia Nelson Notice Issued Date-Time: 02/23/2019 15:15 Notice Type: Patient Choice Letter Notice Delivered To: Family Member Relationship to Patient: Spouse Track Laying Machine Operator Name: QUEEN ODESSA Delivery Method: HAND - Hand Delivered Cristina Days: Prior Verbal Notification: Recipient Understood Notice: Yes Recipient Signature: Yes Med Rec Note Co-signed by Attending: Coverage Notice Comment: ANY MEDICAL EQUIPMENT COMPANY SERVICING [place] // [facility] Reviewer: [id number] Edilia Nelson Notice Issued Date-Time: 02/26/2019 12:00 Notice Type: Patient Choice Letter Notice Delivered To: Family Member Relationship to Patient: Spouse Track Laying Machine Operator Name: QUEEN ODESSA Delivery Method: PHONE - Phone Cristina Days: Prior Verbal Notification: Recipient Understood Notice: Yes Recipient Signature: Med Rec Note Co-signed by Attending: Coverage Notice Comment: [facility] 2- [facility] 3-[facility] NOT [place]!! Last DP export: 03/10/19 2:10 p Patient Name: MANA SAXENA Page [id number] at 1412 All edits/amendments must be made on the electronic document DICTATION DATE: 03/11/19 1411 PRODUCTION LEAD: GRACE 03/11/19 1411 RPT#: [id number] DC DATE: STATUS: ADM IN [facility] [address] [place] [address] END OF REPORT
--- NOTE | 2019-03-11 14:21 | MORECARE ---
CASE MANAGEMENT DISCHARGE SUMMARY PATIENT: MANA SAXENA UNIT: [id number] ADM DATE: 02/24/19 AGE: 78 : 38 SEX: M ROOM/BED: D.2102 AUTHOR: BJ,DOC PHYSICIAN: REFERRING PHYSICIAN: CASEY NAIDU MD DATE OF SERVICE: 03/11/19 Discharge Plan Patient Name: MANA SAXENA Facility: [facility]:[place] : 1940 Planned Disposition: Group Home Facility Anticipated Discharge Date: 02/24/19 Discharge Date: Expected LOS: 1 Initial Reviewer: [email or web address] Initial Review Date: 02/22/2019 Generated: 03/11/19 3:21 pm Comments DCP- Discharge Planning Updated by [email or web address]: Ibrahima Nelson on 03/11/19 1:[address] Patient Name: MANA SAXENA Encounter No: [id number] : 1940 Primary Insurance: [employer]ETNA MEDICARE PPO or HMO Anticipated DC Date: 02-24-2019 Planned Disposition: Group Home Facility External Planned Provider: [facility], MEDICARE REHAB BED DCP follow-up note: CM RECEIVED CALL FROM DAVID, THEY ARE OUT OF INSURANCE NETWORK AND CANNOT ACCEPT PT. CM SPOKE TO PT AND SPOUSE IN ROOM. REPORTS IT IS OK TO SEND REFERRAL TO [facility] AND IF THEY DON'T ACCEPT, ANY IN NETWORK FACILITY WILL HAVE TO DO, JUST NOT [facility]. CHOICE LETTER COMPLETED. QUEEN ODESSA PROVIDED INSURANCE CUSTOMER SERVICES NUMBER OF AND WEBSITE ADDRESS "[email or web address]" FOR CM USE IF NEEDED. CM NOTIFIED PUJA OF [facility] OF REHAB REFERRAL, . CM FAXED REFERRAL TO [facility] VIA PUJA AT [phone]. CM WAITING ADMISSION DETERMINATION AND INSURANCE AUTHORIZATION FOR REHAB AT [facility]. Ibrahima Nelson CASE MANAGEMENT DCP- Discharge Planning Updated by [id number]: Ibrahima Nelson on 03/10/19 2:[address] Patient Name: MANA SAXENA Encounter No: [id number] : 1940 Primary Insurance: AETNA MEDICARE PPO or HMO Anticipated DC Date: 02-24-2019 Planned Disposition: Group Home Facility External Planned Provider:[facility], MEDICARE REHAB BED DCP follow-up note: CM FAXED UDPATE WITH OT EVALUATION TO UBALDO AT [facility] AT [phone]. [facility] IS TRYING TO GET APPROVAL FOR OUT OF NETWORK SKILLED REHAB BENEFITS. CM WAITING ADMISSION DETERMINATION FROM [facility] FOR REHAB. PT WILL NEED TO HAVE INSURANCE AUTHORIZATION FOR REHAB SERVICES. IBRAHIMA NELSON, CASE MANAGEMENT Appended by Ibrahima Nelson on 03/10/2019 15:03 CDT: CM RECEIVED CALL FROM UBALDO OF [facility], , WHO INFORMED CM THAT THEY ARE STILL TRYING TO CONNECT WITH PT'S INSURANCE COMPANY TO REQUEST AUTHORIZATION OF SERVICES. CM PROVIDED PT'S SOCIAL SECURITY NUMBER AND FAXED UDPATE TO UBALDO AT [facility] AT [phone]. [facility] IS TRYING TO GET APPROVAL FOR OUT OF NETWORK SKILLED REHAB BENEFITS. CM WAITING ADMISSION DETERMINATION FROM [facility]. PT WILL NEED TO HAVE INSURANCE AUTHORIZATION FOR REHAB SERVICES. FATOUMATA BHATT DCP- Discharge Planning Updated by [id number]: Ibrahima Nelson on 03/09/19 10:[address] Patient Name: MANA SAXENA Encounter No: [id number] : 1940 Primary Insurance: AETNA MEDICARE PPO or HMO Anticipated DC Date: 02-24-2019 Planned Disposition: Group Home Facility External Planned Provider:[facility], MEDICARE REHAB BED DCP follow-up note: CM REVIEWED CHART, OBTAINED ORDER FOR OCCUPATIONAL THERAPY EVALUATION. CM FAXED UPDATED REFERRAL TO [facility], . CM RECEIVED CALL FROM UBALDO OF [facility], , [facility] IS NOT IN NETWORK WITH PT'S INSURANCE AND THEY HAVE SUBMITTED TO INSURANCE TO SEE IF INSURANCE WILL COVER REHAB AT [facility]. CM WAITING ADMISSION DETERMINATION FROM [facility] AND [facility] FOR REHAB. PT WILL NEED TO HAVE INSURANCE AUTHORIZATION FOR REHAB SERVICES. FATOUMATA BHATT DCP- Discharge Planning Updated by [email or web address]: Ibrahima Nelson on 03/03/19 9:[address] Patient Name: MANA SAXENA Encounter No: [id number] : 1940 Primary Insurance: AETNA MEDICARE PPO or HMO Anticipated DC Date: 02-24-2019 Planned Disposition: Group Home Facility External Planned Provider: [facility], MEDICARE REHAB BED DCP follow-up note: CM RECEIVED CALL FROM [facility], UPDATE PROVIDED VIA PHONE; [facility] CANCELLED REFERRAL AND INSTRUCTED CM TO SEND REFERRAL WHEN PT IS BETTER AND IF PT STILL NEEDS INPATIENT REHAB SERVICES. CM WAITING ADMISSION DETERMINATION FROM [facility] FOR REHAB OR [facility]. PT WILL NEED TO HAVE INSURANCE AUTHORIZATION WHEN OCCUPATIONAL THERAPY EVALUATION HAS BEEN COMPLETED AND RECEIVED BY [facility] F[facility]. FATOUMATA BHATT DCP- Discharge Planning Updated by [email or web address]: Ibrahima Nelson on 03/02/19 10:[address] Patient Name: MANA SAXENA Encounter No: [id number] : 1940 Primary Insurance: [employer] MEDICARE PPO or HMO Anticipated DC Date: 02-24-2019 Planned Disposition: Inpatient Rehab External Planned Provider: [facility] INPATIENT REHAB DCP follow-up note: CM RECEIVED CALL FROM IAN [facility], THEY HAVE ACCEPTED MEDICALLY AND WILL SUBMIT TO INSURANCE FOR AUTHORIZATION FOR INPATIENT REHAB SERVICES. CM ADVISED THAT PT HAD MOVED TO ICU THIS MORNING AND THAT PT HAS BEEN REFUSING THERAPY SERVICES AND FURTHER THAT OCCUPATIONAL THERAPY EVALUATION HAS NOT YET BEEN COMPLETED. IAN WILL FOLLOW UP WITH CALL TO PT'S TO DISCUSS COMPLIANCE WITH THERAPY SERVICES TO SEE IF THE SPOUSE CAN SPEAK TO PT. CM WAITING RETURN CALL FROM PT'S SPOUSE, QUEEN ODESSA. [facility] WILL SUBMIT TO PT'S INSURANCE COMPANY FOR INPATIENT REHAB AUTHORIZATION WHEN OCCUPATIONAL THERAPY EVALUATION HAS BEEN COMPLETED AND RECEIVED. CM WAITING ADMISSION DETERMINATION FROM [facility] OR REHAB OR RETIREMENT CARE. PT WILL NEED TO HAVE INSURANCE AUTHORIZATION WHEN OCCUPATIONAL THERAPY EVALUATION HAS BEEN COMPLETED AND RECEIVED BY [facility] F[facility]. IBRAHIMA NELSON CASE MANAGEMENT DCP- Discharge Planning Updated by [id number]: Ibrahima Nelson on 03/01/19 3:[address] Patient Name: MANA SAXENA Encounter No: [id number] : 1940 Primary Insurance: AETNA MEDICARE PPO or HMO Anticipated DC Date: 02-24-2019 Planned Disposition: Inpatient Rehab External Planned Provider: [facility] INPATIENT REHAB DCP follow-up note: CM REVIEWED CHART, OCCUPATIONAL THERAPY EVALUATION HAS STILL NOT BEEN COMPLETED / DOCUMENTED. CM FAXED BASIC REFERRAL TO [facility] FOR INPATIENT REHAB CONSIDERATION AT [phone]. CM TO FAX UPDATE WITH OCCUPATIONAL THERAPY EVALUATION WHEN IT IS COMPLETED AND DOCUMENTED. Ibrahima Nelson, CASE MANAGEMENT Appended by Ibrahima Nelson on 03/01/2019 16:14 CDT: CM REVIEWED CHART, PT REFUSED PHYSICAL THERAPY TODAY AND THERAPY HAS SIGNED OFF DUE TO PT REFUSAL. OCCUPATIONAL THERAPY EVALUATION STILL NOT COMPLETED. IT IS CM'S EXPERIENCE THAT INSURANCE WILL NOT PAY FOR REHAB SERVICES UNLESS PT IS PARTICIPATING, WHICH THIS PT IS NOT. CM SPOKE TO PT IN ROOM WHO REPORTS HE DID NOT UNDERSTAND; PT STATES HE IS GOING HOME. WHEN CM EXPLAINED IN SLOW DETAIL THAT PT'S SPOUSE WANTS HIM TO GO TO REHAB, PT YELLS AT THAT SOMETHING MUST BE WRONG AND TO CALL . CM CALLED QUEEN ODESSA, SPOUSE, , LEFT MESSAGE ASKING FOR RETURN CALL. CM FAXED REFERRAL TO [facility] IN [place]OPES THAT THEY CAN GET AUTHORIZATION FOR REHAB WITH PT'S REFUSAL TO DO THERAPY OR AT LEAST CONSIDER FOR RETIREMENT CARE. CM WAITING RETURN CALL FROM PT'S SPOUSE, QUEEN ODESSA. CM WAITING ADMISSION DETERMINATION FROM [facility] OR REHAB OR PROGRAMMING COORDINATOR CARE. IBRAHIMA NELSON, CASE MANAGEMENT DCP- Discharge Planning Updated by [id number]: Ibrahima Nelson on 02/26/19 12:[address] Patient Name: MANA SAXENA Encounter No: [id number] : 1940 Primary Insurance: AETNA MEDICARE PPO or HMO Anticipated DC Date: 02-24-2019 Planned Disposition: Inpatient Rehab External Planned Provider: [facility] INPATIENT REHAB DCP follow-up note: CM RECEIVED CALL FROM AYUSH OF [facility] PATIENT; SHE HAD CALLED PT'S SPOUSE TO ARRANGE DELIVERY OF MANUAL WHEELCHAIR AND SPOUSE REFUSED IT STATING THAT SHE CANNOT PHYSICALLY PUSH PT IN A WHEELCHAIR AND REQEUSTED A POWER CHAIR. CM ATTEMPTED TO SEE PT'S SPOUSE IN ROOM, SHE WAS NOT THERE. CM CALLED WANG SAXENA, . HODA INFORMED THAT AN ELECTRIC WHEELCHAIR REQUIRES VERY DETAILED AND LENGHTY DOCUMENTATION THAT CANNOT BE DONE FROM HOSPITAL, REFERRED HER TO PT'S PRIMARY CARE DOCTOR. CM DISCUSSED AVAILABILITY OF REHAB SERVICES, PROVIDERS AND LOCATIONS. REPORTS SHE IS OLDER THAN PT AND IS HAVING TROUBLE CARING FOR PT IN HIS WEAKENED STATE AND WOULD LIKE REHAB AT [facility] FIRST CHOICE AND [facility] SECOND, [facility] THIRD BUT WILL NOT CONSIDER [facility] IN [place]. CHOICE LETTER COMPLETED. CHART REVIEWED, PHYSICAL THERAPY EVALUATION STILL PENDING, NO OCCUPATIONAL THERAPY HAD BEEN ORDERED. CM OBTAINED ORDER FOR OCCUPATIONAL THERAPY EVALUATION. CM TO PROVIDE REFERRAL TO [facility] FOR INPATIENT REHAB CONSIDERATION ONCE PHYSICAL AND OCCUPATIONAL THERAPY EVALUATIONS ARE COMPLETED. Ibrahima Nelson, CASE MANAGEMENT DCP- Discharge Planning Updated by [id number]: Ibrahima Nelson on 02/23/19 3:[address] Patient Name: MANA SAXENA Admission Status: ER Accout number: [id number] Admission Date: 02-22-2019 : 1940 Admission Diagnosis: Attending: CASEY NAIDU Current LOS: 1 Anticipated DC Date: 02-24-2019 Planned Disposition: Home with Home Health Primary Insurance: UNINSURED DISCOUNT PLAN PLANNED EXTERNAL PROVIDER: [facility] Discharge Planning Comments: CM RECEIVED ORDER FOR HOME HEALTH. CM MET WITH PT AND SPOUSE IN ROOM TO DISCUSS DISCHARGE PLANNING AND NEEDS. MANA SAXENA provided verbal consent to discuss current and ongoing needs with/in the presence of: SPOUSE, . ANSWERED ALL QUESTIONS. PT LIVING AT HOME DEPENDENTLY WITH SPOUSE WHO ASSISTS WITH MEDICATIONS. PT HAS BEEN GETTING WEAKER AND NOW NEEDS ASSISTANCE WITH BATHING. PT HAS WALKER WITH WHEELS, SEAT AND BRAKES AND NO MEDICAL EQUIPMENT PROVIDER PREFERENCE. PT HAS HOME HEALTH WITH [facility] FOR NURSING AND PHYSICAL THERAPY. CM DISCUSSED AVAILABILITY OF HOME HEALTH, REHAB SERVICES AND MEDICAL EQUIPMENT. PT'S SPOUSE WANTS [facility] RESUMPTION AND REPORTS NEEDING A WHEELCHAIR PT IS NO LONGER ABLE TO CLIMB THE STEPS TO GET ON THE MEDICAID BUS FOR DIALYSIS TRANSPORTATION. PT GOES TO DIALYSIS IN [place] ON MWF SCHEDULE. PT'S FAMILY TO TRANSPORT HOME AT DISCHARGE. CHOICE SIGNED FOR [facility], CHOICE FOR NO PREFERENCE FOR MEDICAL EQUIPMENT PROVIDER COMPLETED BY CM. CM COLLECTED REGISTRATION INFORMATION AND FORWARDED TO [facility] OF REGISTRATION. CM SPOKE TO BOWEN TEJADA WHO PROVIDED ORDER FOR WHEELCHAIR. CM CALLED [facility], , SPOKE TO AYUSH AND PROVIDED REFERRAL INFORMATION FOR WHEELCHAIR. CM FAXED ORDER AND CHART INFORMATION TO [facility] PATIENT AT [phone]. [facility] PATIENT TO PROCESS ORDER FOR WHEELCHAIR DELIVERY TO PT IF QUALIFIES; PT'S INSURANCE REQUIRES PRIOR AUTHORIZATION. CM CALLED [facility], , SPOKE TO KURT, PROVIDED REFERRAL INFORMATION, PT IS ON SERVICES WITH [facility] ALREADY.. CM FAXED REFERRAL INFORMATION TO [facility], . FOR DISCHARGE, NOTIFY [facility] AT [phone]; FAX DISCHARGE INFORMATION TO [facility] AT [phone]. Powerhouse Operator: Ibrahima Nelson DCPIA - Discharge Planning Initial Assessment Updated by [id number]: Ibrahima Nelson on 02/23/19 3:52 pm * Is the patient Alert and Oriented? Yes * How many steps to enter\\exit or inside your home? RAMP * PCP DR. VIC PAREDES IN [place] * Pharmacy [facility] IN [place] * Preadmission Environment Home with Family * ADLs Partial Dependent * Partial ADLs (Assistance needed) Bathing Medication Management * Equipment Rolling Walker * Other Equipment ROLLING WALKER WITH SEAT AND BRAKES NO MEDICAL EQUIPMENT PROVIDER PREFERENCE * List name and contact numbers for known caregivers / representatives who currently or will assist patient after discharge: QUEEN ODESSA, SPOUSE, IDRIS SAXENA NIECE, * Verbal permission to speak to the caregivers and representatives has been obtained from the patient. Yes * Community resources currently utilized Home Health * Please name any agencies selected above. [facility], NURSING AND PHYSICAL THERAPY * Additional services required to return to the preadmission environment? No * Can the patient safely return to the preadmission environment? Yes * Has this patient been hospitalized within the prior 30 days at any hospital? Yes Coverage Notice Reviewer: [id number] Edilia Nelson Notice Issued Date-Time: 02/23/2019 15:15 Notice Type: Patient Choice Letter Notice Delivered To: Family Member Relationship to Patient: Spouse Strategy Execution Consultant Name: QUEEN ODESSA Delivery Method: HAND - Hand Delivered Cristina Days: Prior Verbal Notification: Recipient Understood Notice: Yes Recipient Signature: Yes Med Rec Note Co-signed by Attending: Coverage Notice Comment: ANY MEDICAL EQUIPMENT COMPANY SERVICING [place] // [facility] Reviewer: [email or web address] Edilia Nelson Notice Issued Date-Time: 02/26/2019 12:00 Notice Type: Patient Choice Letter Notice Delivered To: Family Member Relationship to Patient: Spouse Strategy Execution Consultant Name: QUEEN ODESSA Delivery Method: PHONE - Phone Cristina Days: Prior Verbal Notification: Recipient Understood Notice: Yes Recipient Signature: Med Rec Note Co-signed by Attending: Coverage Notice Comment: [facility]- [facility] 3-[facility]!! Last DP export: 03/11/19 1:11 p Patient Name: MANA SAXENA Page [id number] at 1421 All edits/amendments must be made on the electronic document DICTATION DATE: 03/11/191419 HYDRAULIC REPAIRER: GRACE 03/11/19 142 RPT#: [id number] DC DATE: STATUS: ADM IN [facility] [address] [place] [address] END OF REPORT
[2019-03-11 15:12] LABS: PLT AB - HLA CLASS 1 Negative (Negative); PLT AB - IIb IIIa Negative (Negative); PLT AB - Ia IIa Negative (Negative); PLT AB - Ib IX Negative (Negative)
--- NOTE | 2019-03-11 18:09 | NUR ---
NO CHANGES NOTED AT THIS TIME.
--- NOTE | 2019-03-11 18:53 | NUR ---
OT NOTE: PT COMPLETED SIT TO STAND AND TRANSFER WITH JAILYN Uriarte THANK YOU, TROY SHORT
--- NOTE | 2019-03-11 19:35 | NUR ---
REPORT REECIEVED AND ROUNDING COMPLETE. PT LAYING IN BED CNAS JUST TOOK PT OFF OF BED AYALA. PT MUMBLING AND GROANING. PT UNABLE TO ANSWER QUESTIONS. CHECKED FSBS READING WAS 48. GALEN ARTIS GRABBED DEXTROSE 50% PER PROTOCOL AND BETH BURCH STOOD BY FOR ASSISTANCE. AFTER 5 MIN. PT STATED HIS NAME. STILL A LITTLE GROGGY, WILL RECHECK FSBS IN 10-15 MIN. CALL LIGHT WITHIN REACH AND BED IN LOWEST POSITION.
--- NOTE | 2019-03-11 19:59 | NUR ---
RECHECKED FSBS 84 AT THIS TIME. PT WAS ABLE TO STATE HIS NAME AND DATE OF , PT ASKED FOR THE BED AYALA AND I ASSISTED HIM ONTO BEDPAN. PT THEN ASKED ME TO LEAVE THE ROOM. WILL CONTINUE TO MONITOR CLOSELY.
[2019-03-11 20:00] VITALS: BP 116/60
--- NOTE | 2019-03-11 20:39 | NUR ---
CHECKED FSBS 40. JOCELYNE BURCH HAD BAM ON PHONE SHE STATED TO GIVE ANOTHER 25 D5 AND START PT ON D5@ 40 ML/HR. AND RECHECK IN 2 HRS. WILL CONTINUE TO MONITOR CLOSELY.
[2019-03-11 22:33] LABS: BASOPHILS 0.1 % (0-2); EOSINOPHILS 0.7 % (0-7); HEMATOCRIT 26.6 % (42.0-54.0); HEMOGLOBIN 8.6 g/dL (13.5-17.5); IMMATURE GRANULOCYTES 0.3 % (0-5); LYMPHOCYTES 10.3 % (15-50); MCHC 32.3 g/dL (31.0-37.0); MCV 92.7 fL (80.0-100.0); MEAN PLATELET VOLUME 12.1 fL (7.4-10.4); MONOCYTES 15.6 % (2-11); PLATELET COUNT 93 10x3/uL (130-400); RBC 2.87 10x6/uL (4.20-6.10); WBC 7.4 10x3/uL (4.8-10.8)
--- NOTE | 2019-03-11 22:35 | NUR ---
RAPID CALLED PT'S FSBS 30. PT BEING TRANSFERED TO ICU
[2019-03-11 22:36] LABS: ALBUMIN 2.5 g/dL (3.4-5.0); ANION GAP 14.6 mmol/L (8-16); BILIRUBIN - TOTAL 0.79 mg/dL (0.2-1.3); CALCIUM 8.4 mg/dL (8.5-10.1); CARBON DIOXIDE 23.8 mmol/L (21.0-32.0); CREATININE - SERUM 5.9 mg/dL (0.6-1.3); MAGNESIUM - SERUM 2.1 mg/dL (1.8-2.4); POTASSIUM - SERUM 3.4 mmol/L (3.5-5.1)
[2019-03-11 23:00] VITALS: BP 103/57
--- NOTE | 2019-03-11 23:00 | NUR ---
PT TRANSFERRED TO ROOM 2314 POST RAPID. PT WAS ATTACHED TO THE MONITORS, AND A NEW BS WAS TAKEN(234), PT WAS INCONTINENT OF BM SO PT WAS CLEANED UP AND POSITIONED COMFORTABLY. INITIAL ASSESSMENT COMPLETED AT THIS TIME, SEE FLOWSHEET FOR DETAILS. PT'S TEMP AT TIME OF ARRIVAL WAS 92.6 SO WARMING BLANKET APPLIED TO PT. WILL CONTINUE TO MONITOR PT BP, BS, AND TEMP CLOSELY.
[2019-03-12] VITALS (24 sets, daily range): BP systolic 89–132; BP diastolic 51–74
--- NOTE | 2019-03-12 01:00 | NUR ---
PT IS RESTING IN BED WITH EYES CLOSED. STILL WARMING UNDER WARMING BLANKET AT THIS TIME. LAST BS WAS 110. VSS. NO SIGNS OF ACUTE DISTRESS NOTED AT THIS TIME. WILL CONTINUE TO MONITOR.
--- NOTE | 2019-03-12 03:00 | NUR ---
REASSESSMENT COMPLETED, SEE FLOWSHEET FOR DETAILS. PT IS LAYING IN BED WITH EYES CLOSED AT THIS TIME. PT IS STILL UNDER THE WARMING BLANKET, LAST TEMP CHECK SHOWED 94.7. WILL CHECK RECTAL TEMP TO DETERMINE IF THIS IS ACCURATE. LAST FSBS WAS 98. VSS AT THIS TIME. NO SIGNS OF ACUTE DISTRESS. WILL CONTINUE TO MONITOR.
[2019-03-12 06:20] LABS: ANION GAP 16.4 mmol/L (8-16); CALCIUM 8.3 mg/dL (8.5-10.1); CREATININE - SERUM 6.1 mg/dL (0.6-1.3); POTASSIUM - SERUM 3.4 mmol/L (3.5-5.1)
[2019-03-12 06:42] LABS: HEMATOCRIT 29.2 % (42.0-54.0); HEMOGLOBIN 9.3 g/dL (13.5-17.5); MCH 29.5 pg (26.0-34.0); MCHC 31.8 g/dL (31.0-37.0); MCV 92.7 fL (80.0-100.0); PLATELET COUNT 79 10x3/uL (130-400); RBC 3.15 10x6/uL (4.20-6.10); RDW 19.2 % (11.5-14.5); WBC 5.7 10x3/uL (4.8-10.8)
--- NOTE | 2019-03-12 07:25 | NUR ---
REPORT RECEIVED. PT HAS CENTRAL LINE TO LEFT GROIN. RESERVE LEFT ARM. RECTAL TEMP CHECKED. 96.5. COMING UP FROM THE 94 THAT WAS REPORTED TO ME FROM IT ASSISTANT. SARMAD BURROUGHS ON PT. BS IS 93. BS HAD STEADILY BEEN DECLINING AND WAS IN THE 70S PRIOR TO THIS CHECK. PT ASKED FOR BEDPAN. PLACED ON BEDPAN AND WILL CHECK ON PT AFTER A FEW MINUTES. HE IS A MWF DIALYSIS PT. WILL CONTINUE TO MONITOR.
[2019-03-12 08:12] LABS: EOSINOPHILS 1 % (0-7); HYPOCHROMASIA OCC; LYMPHOCYTES 15 % (15-50); MONOCYTES 12 % (2-11); NEUTROPHILS 72 % (40-80); PLATELET ESTIMATE DECREASED
--- NOTE | 2019-03-12 09:27 | NUR ---
Nutrition Follow Up: Chart reviewed Diet: Renal PO Intake: 60% meal avg BM: 03/12/19 Labs reviewed Meds noted including Lactulose Rec continue current diet. RD following.
--- NOTE | 2019-03-12 09:37 | NUR ---
BS 90. DIALYSIS IN ROOM TO START TREATMENT.
--- NOTE | 2019-03-12 11:30 | NUR ---
PT RECEIVING DIALYSIS. VSS.
--- NOTE | 2019-03-12 13:15 | NUR ---
PT STILL RECEIVING DIALYSIS. CHRISSY WISEMAN, SAID OKAY TO NOT GIVE BLOOD AT THIS TIME. WILL CONTINUE TO MONITOR.
--- NOTE | 2019-03-12 15:30 | NUR ---
VSS. PT REPOSITIONED. ALERT TO SELF. WILL CONTINUE TO MONITOR.
--- NOTE | 2019-03-12 16:11 | MORECARE ---
CASE MANAGEMENT DISCHARGE SUMMARY PATIENT: MANA SAXENA UNIT: [id number] ADM DATE: 02/24/19 AGE: 78 : 38 SEX: M ROOM/BED: D.2314 AUTHOR: BJ,DOC PHYSICIAN: REFERRING PHYSICIAN: CASEY NAIDU MD DATE OF SERVICE: 03/12/19 Discharge Plan Patient Name: MANA SAXENA Facility: [facility] : 1940 Planned Disposition: Shelter Facility Anticipated Discharge Date: 02/24/19 Discharge Date: Expected LOS: 1 Initial Reviewer: [id number] Initial Review Date: 02/22/2019 Generated: 03/12/19 5:11 pm Comments DCP- Discharge Planning Updated by [id number]: Ibrahima Nelson on 03/12/19 3:[address] Patient Name: MANA SAXENA Encounter No: [id number] : 1940 Primary Insurance: AETNA MEDICARE PPO or HMO Anticipated DC Date: 02-24-2019 Planned Disposition: Shelter Facility External Planned Provider: [facility], MEDICARE REHAB BED DCP follow-up note: CM RECEIVED CALL FROM PUJA OF [facility]; REFERRAL WAS RECEIVED, PT'S INSURANCE WILL PAY OUT OF NETWORK BENEFITS JUST THE SAME IN NETWORK TO [facility]. PT WILL NEED THERAPY NOTES WITH PATIENT PARTICIPATION TO GET INSURANCE AUTHORIZATION FOR REHAB. PT NEEDS THERAPY NOTES DOCUMENTING PATIENT PARTICIPATION FOR INSURANCE TO AUTHORIZE . CM WAITING ADMISSION DETERMINATION AND INSURANCE AUTHORIZATION FOR REHAB AT [facility] IN [place]. Ibrahima Nelson, FATOUMATA PHAM DCP- Discharge Planning Updated by [id number]: Ibrahima Nelson on 03/11/19 1:[address] Patient Name: MANA SAXENA Encounter No: [id number] : 1940 Primary Insurance: AETNA MEDICARE PPO or HMO Anticipated DC Date: 02-24-2019 Planned Disposition: Shelter Facility External Planned Provider: [facility], MEDICARE REHAB BED DCP follow-up note: CM RECEIVED CALL FROM DAVID, THEY ARE OUT OF INSURANCE NETWORK AND CANNOT ACCEPT PT. CM SPOKE TO PT AND SPOUSE IN ROOM. REPORTS IT IS OK TO SEND REFERRAL TO [facility] AND IF THEY DON'T ACCEPT, ANY IN NETWORK FACILITY WILL HAVE TO DO, JUST NOT [facility] IN [place]. CHOICE LETTER COMPLETED. QUEEN ODESSA PROVIDED INSURANCE CUSTOMER SERVICES NUMBER OF AND WEBSITE ADDRESS "www[place] [employer] [place]" FOR CM USE IF NEEDED. CM NOTIFIED [facility] OF [facility] OF REHAB REFERRAL, . CM FAXED REFERRAL TO [facility] VIA PUJA AT [phone]. CM WAITING ADMISSION DETERMINATION AND INSURANCE AUTHORIZATION FOR REHAB AT [facility] IN [place]. FATOUMATA Bhatt DCP- Discharge Planning Updated by [id number]: Ibrahima Nelson on 03/10/19 2:[address] Patient Name: MANA SAXENA Encounter No: [id number] : 1940 Primary Insurance: AETNA MEDICARE PPO or HMO Anticipated DC Date: 02-24-2019 Planned Disposition: Shelter Facility External Planned Provider:[facility], MEDICARE REHAB BED DCP follow-up note: CM FAXED UDPATE WITH OT EV[facility]ATION [facility] AT [phone]. [facility] IS TRYING TO GET APPROVAL FOR OUT OF NETWORK SKILLED REHAB BENEFITS. CM WAITING ADMISSION DETERMINATION FROM [facility] AND REHAB FOR REHAB. PT WILL NEED TO HAVE INSURANCE AUTHORIZATION FOR REHAB SERVICES. IBRAHIMA NELSON, CASE MANAGEMENT Appended by Ibrahima Nelson on 03/10/2019 15:03 CDT: CM RECEIVED CALL FROM UBALDO OF [facility], , WHO INFORMED CM THAT THEY ARE STILL TRYING TO CONNECT WITH PT'S INSURANCE COMPANY TO REQUEST AUTHORIZATION OF SERVICES. CM PROVIDED PT'S SOCIAL SECURITY NUMBER AND FAXED UDPATE TO UBALDO AT [facility] AT [phone]. [facility] IS TRYING TO GET APPROVAL FOR OUT OF NETWORK SKILLED REHAB BENEFITS. CM WAITING ADMISSION DETERMINATION FROM [facility] AND REHAB FOR REHAB. PT WILL NEED TO HAVE INSURANCE AUTHORIZATION FOR REHAB SERVICES. FATOUMATA BHATT DCP- Discharge Planning Updated by [id number]: Ibrahima Nelson on 03/09/19 10:[address] Patient Name: MANA SAXENA Encounter No: [id number] : 1940 Primary Insurance: AETNA MEDICARE PPO or HMO Anticipated DC Date: 02-24-2019 Planned Disposition: Shelter Facility External Planned Provider:[facility] AND [facility], MEDICARE REHAB BED DCP follow-up note: CM REVIEWED CHART, OBTAINED ORDER FOR OCCUPATIONAL THERAPY EVALUATION. CM FAXED UPDATED REFERRAL TO [facility], . CM RECEIVED CALL FROM UBALDO OF [facility], , [facility] IS NOT IN NETWORK WITH PT'S INSURANCE AND THEY HAVE SUBMITTED TO INSURANCE TO SEE IF INSURANCE WILL COVER REHAB AT [facility]. CM WAITING ADMISSION DETERMINATION FROM [facility] AND [facility] FOR REHAB. PT WILL NEED TO HAVE INSURANCE AUTHORIZATION FOR REHAB SERVICES. IBRAHIMA NELSON, CASE MANAGEMENT DCP- Discharge Planning Updated by [id number]: Ibrahima Nelson on 03/03/19 9:[address] Patient Name: MANA SAXENA Encounter No: [id number] : 1940 Primary Insurance: AETNA MEDICARE PPO or HMO Anticipated DC Date: 02-24-2019 Planned Disposition: Shelter Facility External Planned Provider: [facility], [facility] BED DCP follow-up note: CM RECEIVED CALL FROM [facility], UPDATE PROVIDED VIA PHONE; DOUGLAS CANCELLED REFERRAL AND INSTRUCTED CM TO SEND REFERRAL WHEN PT IS BETTER AND IF PT STILL NEEDS INPATIENT REHAB SERVICES. CM WAITING ADMISSION DETERMINATION FROM [facility] AND REHAB FOR REHAB OR [facility] CARE. PT WILL NEED TO HAVE INSURANCE AUTHORIZATION WHEN OCCUPATIONAL THERAPY EVALUATION HAS BEEN COMPLETED AND RECEIVED BY HALFWAY FACILITY. IBRAHIMA NELSON CASE MANAGEMENT DCP- Discharge Planning Updated by [id number]: Ibrahima Nelson on 03/02/19 10:[address] Patient Name: MANA SAXENA Encounter No: [id number] : 1940 Primary Insurance: AETNA MEDICARE PPO or HMO Anticipated DC Date: 02-24-2019 Planned Disposition: Inpatient Rehab External Planned Provider: [facility] DCP follow-up note: CM RECEIVED CALL FROM [facility], THEY HAVE ACCEPTED MEDICALLY AND WILL SUBMIT TO INSURANCE FOR AUTHORIZATION FOR INPATIENT REHAB SERVICES. CM ADVISED THAT PT HAD MOVED TO ICU THIS MORNING AND THAT PT HAS BEEN REFUSING THERAPY SERVICES AND FURTHER THAT OCCUPATIONAL THERAPY EVALUATION HAS NOT YET BEEN COMPLETED. IAN WILL FOLLOW UP WITH CALL TO PT'S TO DISCUSS COMPLIANCE WITH THERAPY SERVICES TO SEE IF THE SPOUSE CAN SPEAK TO PT. CM WAITING RETURN CALL FROM PT'S SPOUSE, QUEEN ODESSA. [facility] WILL SUBMIT TO PT'S INSURANCE COMPANY FOR INPATIENT REHAB AUTHORIZATION WHEN OCCUPATIONAL THERAPY EVALUATION HAS BEEN COMPLETED AND RECEIVED. CM WAITING ADMISSION DETERMINATION FROM [facility] AND REHAB OR REHAB OR SKILLED NURSING CARE. PT WILL NEED TO HAVE INSURANCE AUTHORIZATION WHEN OCCUPATIONAL THERAPY EVALUATION HAS BEEN COMPLETED AND RECEIVED BY HALFWAY FACILITY. FATOUMATA BHATT DCP- Discharge Planning Updated by [id number]: Ibrahima Nelson on 03/01/19 3:[address] Patient Name: MANA SAXENA Encounter No: [id number] : 1940 Primary Insurance: AETNA MEDICARE PPO or HMO Anticipated DC Date: 02-24-2019 Planned Disposition: Inpatient Rehab External Planned Provider: [facility] IN[facility] RE[facility] DCP follow-up note: HODA REVIEWED CHART, OCCUPATIONAL THERAPY EVALUATION HAS STILL NOT BEEN COMPLETED / DOCUMENTED. CM FAXED BASIC REFERRAL TO [facility] FOR INPATIENT REHAB CONSIDERATION AT [phone]. CM TO FAX UPDATE WITH OCCUPATIONAL THERAPY EVALUATION WHEN IT IS COMPLETED AND DOCUMENTED. Ibrahima Nelson CASE MANAGEMENT Appended by Ibrahima Nelson on 03/01/2019 16:14 CDT: HODA REVIEWED CHART, PT REFUSED PHYSICAL THERAPY TODAY AND THERAPY HAS SIGNED OFF DUE TO PT REFUSAL. OCCUPATIONAL THERAPY EVALUATION STILL NOT COMPLETED. IT IS CM'S EXPERIENCE THAT INSURANCE WILL NOT PAY FOR REHAB SERVICES UNLESS PT IS PARTICIPATING, WHICH THIS PT IS NOT. CM SPOKE TO PT IN ROOM WHO REPORTS HE DID NOT UNDERSTAND; PT STATES HE IS GOING HOME. WHEN CM EXPLAINED IN SLOW DETAIL THAT PT'S SPOUSE WANTS HIM TO GO TO REHAB, PT YELLS AT THAT SOMETHING MUST BE WRONG AND TO CALL . CM CALLED QUEEN ODESSA, SPOUSE, , LEFT MESSAGE ASKING FOR RETURN CALL. CM FAXED REFERRAL TO [facility] IN HOPES THAT THEY CAN GET AUTHORIZATION FOR REHAB WITH PT'S REFUSAL TO DO THERAPY OR AT LEAST CONSIDER FOR SKILLED NURSING CARE. CM WAITING RETURN CALL FROM PT'S SPOUSE, QUEEN ODESSA. CM WAITING ADMISSION DETERMINATION FROM [facility] AND REHAB OR REHAB OR [facility]NAGER CARE. IBRAHIMA OMAR, CASE MANAGEMENT DCP- Discharge Planning Updated by [id number]: Ibrahima Nelson on 02/26/19 12:[address] Patient Name: MANA SAXENA Encounter No: [id number] : 1940 Primary Insurance: AETNA MEDICARE PPO or HMO Anticipated DC Date: 02-24-2019 Planned Disposition: Inpatient Rehab External Planned Provider: [facility] IN[facility] RE[facility] DCP follow-up note: CM RECEIVED CALL FROM AYUSH OF [facility]; SHE HAD CALLED PT'S SPOUSE TO ARRANGE DELIVERY OF MANUAL WHEELCHAIR AND SPOUSE REFUSED IT STATING THAT SHE CANNOT PHYSICALLY PUSH PT IN A WHEELCHAIR AND REQEUSTED A POWER CHAIR. CM ATTEMPTED TO SEE PT'S SPOUSE IN ROOM, SHE WAS NOT THERE. CM CALLED QUEEN ODESSA, . CM INFORMED THAT AN ELECTRIC WHEELCHAIR REQUIRES VERY DETAILED AND LENGHTY DOCUMENTATION THAT CANNOT BE DONE FROM HOSPITAL, REFERRED HER TO PT'S PRIMARY CARE DOCTOR. CM DISCUSSED AVAILABILITY OF REHAB SERVICES, PROVIDERS AND LOCATIONS. REPORTS SHE IS OLDER THAN PT AND IS HAVING TROUBLE CARING FOR PT IN HIS WEAKENED STATE AND WOULD LIKE REHAB AT [facility] FIRST CHOICE AND [facility] SEC[facility], [facility] THIRD BUT WILL NOT CONSIDER [facility] IN [place]. CHOICE LETTER COMPLETED. CHART REVIEWED, PHYSICAL THERAPY EVALUATION STILL PENDING, NO OCCUPATIONAL THERAPY HAD BEEN ORDERED. CM OBTAINED ORDER FOR OCCUPATIONAL THERAPY EVALUATION. CM TO PROVIDE REFERRAL TO [facility] FOR INPATIENT REHAB CONSIDERATION ONCE PHYSICAL AND OCCUPATIONAL THERAPY EVALUATIONS ARE COMPLETED. FATOUMATA Bhatt DCP- Discharge Planning Updated by [id number]: Ibrahima Nelson on 02/23/19 3:[address] Patient Name: MANA SAXENA Admission Status: ER Accout number: [id number] Admission Date: 02-22-2019 : 1940 Admission Diagnosis: Attending: CASEY NAIDU Current LOS: 1 Anticipated DC Date: 02-24-2019 Planned Disposition: Home with Home Health Primary Insurance: UNINSURED DISCOUNT PLAN PLANNED EXTERNAL PROVIDER: [facility] Discharge Planning Comments: CM RECEIVED ORDER FOR HOME HEALTH. CM MET WITH PT AND SPOUSE IN ROOM TO DISCUSS DISCHARGE PLANNING AND NEEDS. MANA SAXENA provided verbal consent to discuss current and ongoing needs with/in the presence of: SPOUSE, . ANSWERED ALL QUESTIONS. PT LIVING AT HOME DEPENDENTLY WITH SPOUSE WHO ASSISTS WITH MEDICATIONS. PT HAS BEEN GETTING WEAKER AND NOW NEEDS ASSISTANCE WITH BATHING. PT HAS WALKER WITH WHEELS, SEAT AND BRAKES AND NO MEDICAL EQUIPMENT PROVIDER PREFERENCE. PT HAS HOME HEALTH WITH [facility] FOR NURSING AND PHYSICAL THERAPY. CM DISCUSSED AVAILABILITY OF HOME HEALTH, REHAB SERVICES AND MEDICAL EQUIPMENT. PT'S SPOUSE WANTS [facility]UMPTION AND REPORTS NEEDING A WHEELCHAIR PT IS NO LONGER ABLE TO CLIMB THE STEPS TO GET ON THE MEDICAID BUS FOR DIALYSIS TRANSPORTATION. PT GOES TO DIALYSIS IN [place] ON MWF SCHEDULE. PT'S FAMILY TO TRANSPORT HOME AT DISCHARGE. CHOICE SIGNED FOR [facility], CHOICE FOR NO PREFERENCE FOR MEDICAL EQUIPMENT PROVIDER COMPLETED BY CM. CM COLLECTED REGISTRATION INFORMATION AND FORWARDED TO [place] OF REGISTRATION. CM SPOKE TO BOWEN TEJADA WHO PROVIDED ORDER FOR WHEELCHAIR. CM CALLED [facility], , SPOKE TO AYUSH AND PROVIDED REFERRAL INFORMATION FOR WHEELCHAIR. CM FAXED ORDER AND CHART INFORMATION TO [facility] AT [phone]. [facility] PATIENT TO PROCESS ORDER FOR WHEELCHAIR DELIVERY TO PT IF QUALIFIES; PT'S INSURANCE REQUIRES PRIOR AUTHORIZATION. CM CALLED [facility], , SPOKE TO KURT, PROVIDED REFERRAL INFORMATION, PT IS ON SERVICES WITH [facility] ALREADY.. CM FAXED REFERRAL INFORMATION TO [facility], . FOR DISCHARGE, NOTIFY [facility] AT [phone]; FAX DISCHARGE INFORMATION TO [facility] AT [phone]. Field Artillery Operations Specialist: Ibrahima Nelson DCPIA - Discharge Planning Initial Assessment Updated by [id number]: Ibrahima Nelson on 02/23/19 3:52 pm * Is the patient Alert and Oriented? Yes * How many steps to enter\\exit or inside your home? RAMP * PCP DR. VIC PAREDES IN [place] * Pharmacy [facility] IN [place] * Preadmission Environment Home with Family * ADLs Partial Dependent * Partial ADLs (Assistance needed) Bathing Medication Management * Equipment Rolling Walker * Other Equipment ROLLING WALKER WITH SEAT AND BRAKES NO MEDICAL EQUIPMENT PROVIDER PREFERENCE * List name and contact numbers for known caregivers / representatives who currently or will assist patient after discharge: QUEEN ODESSA, SPOUSE, IDRIS SAXENA, NIECE, * Verbal permission to speak to the caregivers and representatives has been obtained from the patient. Yes * Community resources currently utilized Home Health * Please name any agencies selected above. [facility]UR[facility] AND [facility]YSICAL THERAPY * Additional services required to return to the preadmission environment? No * Can the patient safely return to the preadmission environment? Yes * Has this patient been hospitalized within the prior 30 days at any hospital? Yes Coverage Notice Reviewer: [id number] Edilia Nelson Notice Issued Date-Time: 02/23/2019 15:15 Notice Type: Patient Choice Letter Notice Delivered To: Family Member Relationship to Patient: Spouse Supervisor Poultry Processing Name: QUEEN ODESSA Delivery Method: HAND - Hand Delivered Cristina Days: Prior Verbal Notification: Recipient Understood Notice: Yes Recipient Signature: Yes Med Rec Note Co-signed by Attending: Coverage Notice Comment: ANY MEDICAL EQUIPMENT COMPANY SERVICING [place] // [facility] Reviewer: [id number] Nelson Notice Issued Date-Time: 02/26/2019 12:00 Notice Type: Patient Choice Letter Notice Delivered To: Family Member Relationship to Patient: Spouse Supervisor Poultry Processing Name: QUEEN ODESSA Delivery Method: PHONE - Phone Cristina Days: Prior Verbal Notification: Recipient Understood Notice: Yes Recipient Signature: Med Rec Note Co-signed by Attending: Coverage Notice Comment: [facility] 2- [facility] 3-[facility] NOT [facility]!! Reviewer: [id number] Edilia Nelson Notice Issued Date-Time: 03/11/2019 15:50 Notice Type: Patient Choice Letter Notice Delivered To: Family Member Relationship to Patient: Spouse Supervisor Poultry Processing Name: QUEEN ODESSA Delivery Method: HAND - Hand Delivered Cristina Days: Prior Verbal Notification: Recipient Understood Notice: Yes Recipient Signature: Med Rec Note Co-signed by Attending: Coverage Notice Comment: [facility] OR ANY IN NETWORK HALFWAY FOR REHAB Last DP export: 03/11/19 1:21 p Patient Name: MANA SAXENA Page [phone] at 1611 All edits/amendments must be made on the electronic document DICTATION DATE: 03/12/191609 STOCK PITCHER: GRACE 03/12/191609 RPT#: [id number] DC DATE: STATUS: ADM IN [facility] [address] [place] [address] END OF REPORT
[2019-03-12 17:08] LABS: ACID FAST SMEAR Negative (()); AFB SPECIMEN PROCESSING Not Indicated (())
--- NOTE | 2019-03-12 17:58 | NUR ---
PT PULLED UP IN BED. PT EATING DINNER. VSS. CALL LIGHT IN REACH.
--- NOTE | 2019-03-12 19:25 | NUR ---
SHIFT ASSESMENT COMPLETED SEE FLOWSHEET. PT TEMP AND BLOOD SUGAR WNL. NO ACUTE FINDINGS, NO SIGNS OF DISTRESS, PATIENT DENIES NEEDS OR PAIN. VSS CPOC
--- NOTE | 2019-03-12 21:55 | NUR ---
HS MEDICATIONS RECEIVED. PT DENIES NEEDS
--- NOTE | 2019-03-12 23:15 | NUR ---
REASSESSMENT COMPLETED SEE FLOWSHEET
[2019-03-13] VITALS (13 sets, daily range): BP systolic 92–146; BP diastolic 30–92
--- NOTE | 2019-03-13 04:42 | NUR ---
PATIENT RESTING COMFORTABLY NO ACUTE DISTRESS VSS CPOC
--- NOTE | 2019-03-13 04:43 | NUR ---
PATIENT STATES HE IS READY TO GO HOME. VSS CPOC
--- NOTE | 2019-03-13 08:19 | NUR ---
UP IN BED EATING BREAKFAST AT THIS TIME WITH SET UP ASSIST. NO ACUTE DISTRESS NOTED. CALL LIGHT IN REACH. BED ALARM ON. VSS. WILL CONTINUE PLAN OF CARE.
--- NOTE | 2019-03-13 10:22 | NUR ---
UP IN BED AWAKE AT THIS TIME. NO ACUTE DISTRESS NOTED. PT HARD OF HEARING. CALL LIGHT IN REACH. BED ALARM ON. WILL CONTINUE PLAN OF CARE.
[2019-03-13 10:37] LABS: BASOPHILS 0.2 % (0-2); EOSINOPHILS 0.4 % (0-7); HEMATOCRIT 26.3 % (42.0-54.0); HEMOGLOBIN 8.5 g/dL (13.5-17.5); IMMATURE GRANULOCYTES 0.4 % (0-5); LYMPHOCYTES 12.2 % (15-50); MCH 29.9 pg (26.0-34.0); MCHC 32.3 g/dL (31.0-37.0); MCV 92.6 fL (80.0-100.0); MEAN PLATELET VOLUME 12.6 fL (7.4-10.4); NEUTROPHILS 75.8 % (40-80); RBC 2.84 10x6/uL (4.20-6.10); RDW 18.9 % (11.5-14.5); WBC 5.3 10x3/uL (4.8-10.8)
[2019-03-13 10:38] LABS: PLATELET COUNT 99 10x3/uL (130-400)
[2019-03-13 10:50] LABS: ANION GAP 15.5 mmol/L (8-16); CALCIUM 8.4 mg/dL (8.5-10.1); CARBON DIOXIDE 26.7 mmol/L (21.0-32.0); CREATININE - SERUM 4.8 mg/dL (0.6-1.3); POTASSIUM - SERUM 3.2 mmol/L (3.5-5.1)
[2019-03-13 10:52] LABS: PHOSPHOROUS 2.6 mg/dL (2.5-4.9)
[2019-03-13 11:02] LABS: PLATELET ESTIMATE DECREASED
--- NOTE | 2019-03-13 11:07 | NUR ---
PER RENAL CLINICAL GENETICIST, GIVE PT 1 SMALL CONTAINER OF ORANGE JUICE FOR BLOOD SUGAR OF 119 AND LOW POTASSIUM. ALSO STATED OKAY TO TRANSFER TO FLOOR IF OKAY WITH PULMONOLOGY. WILL CONTINUE PLAN OF CARE.
--- NOTE | 2019-03-13 12:01 | NUR ---
PER DR HERNÁNDEZ, TRANSFER TO FLOOR.
--- NOTE | 2019-03-13 13:14 | NUR ---
FAMILY AT BEDSIDE AT THIS TIME, UPDATES PROVIDED. NO ACUTE DISTRESS NOTED. VSS. WILL CONTINUE PLAN OF CARE.
--- NOTE | 2019-03-13 15:50 | NUR ---
INCENTIVE SPIROMETER ATTEMPT NOTED AT 750 FLUTTER ALSO USED. PT ENCOURAGED TO USE QH. NO ACUTE DISTRESS NOTED. TURNED Q2H. VSS. ORAL CARE PROVIDED. RICH CARE PROVIDED USING HIPICLENS. WILL CONTINUE PLAN OF CARE.
--- NOTE | 2019-03-13 17:49 | NUR ---
PT EATING SUPPER AT THIS TIME, BLOOD GLUCOSE IS 69. PT ALSO GIVEN ORANGE JUICE WITH MEAL. WITH RECHECK IN 15MIN. PT DENIES ANY NEEDS. WILL CONTINUE PLAN OF CARE.
--- NOTE | 2019-03-13 18:19 | NUR ---
BLOOD GLUCOSE IS 74.
--- NOTE | 2019-03-13 18:22 | NUR ---
RENAL SHORTHAND TEACHER NOTIFIED OF BLOOD GLUCOSE. ORDER RECIEVED TO HOLD NOVOLIN AND GIVE ENSURE NOW AND WITH ALL MEALS.
--- NOTE | 2019-03-13 18:43 | NUR ---
TRANSFERRED TO 2105 AT THIS TIME VIA BED ACCOMPANIED BY HOSPITAL STAFF. NO ACUTE DISTRESS NOTED. VSS. TRANSFERRED WITH ALL PERSONAL ITEMS. NO FURTHER ACTIONS.
--- NOTE | 2019-03-13 19:23 | NUR ---
PT IN BED. RESTING WITH EYES CLOSED. EVEN AND UNLABORED RESPIRATIONS NOTED AT THIS TIME.
[2019-03-14 00:30] VITALS: BP 104/41
[2019-03-14 04:30] VITALS: BP 115/53
--- NOTE | 2019-03-14 07:00 | NUR ---
RECEIVED REPORT. ASSUMED CARE OF PATIENT. PATIENT [place], EASILY AROUSED BY TOUCH TO SHOULDER. RESP EVEN AND UNLABORED. EXTRA BLANKET PROVIDED PATIENT COMPLAINED OF BEING COLD. CALL LIGHT WITHIN REACH. NO DISTRESS.
[2019-03-14 08:07] VITALS: BP 109/65
[2019-03-14 09:53] LABS: BASOPHILS 0.2 % (0-2); EOSINOPHILS 0.4 % (0-7); HEMATOCRIT 26.9 % (42.0-54.0); HEMOGLOBIN 8.6 g/dL (13.5-17.5); IMMATURE GRANULOCYTES 0.4 % (0-5); LYMPHOCYTES 12.8 % (15-50); MCH 29.7 pg (26.0-34.0); MCV 92.8 fL (80.0-100.0); MEAN PLATELET VOLUME 11.2 fL (7.4-10.4); MONOCYTES 9.1 % (2-11); NEUTROPHILS 77.1 % (40-80); PLATELET COUNT 128 10x3/uL (130-400); RDW 18.8 % (11.5-14.5); WBC 5.3 10x3/uL (4.8-10.8)
[2019-03-14 10:37] LABS: ALBUMIN 2.7 g/dL (3.4-5.0); ANION GAP 12.9 mmol/L (8-16); BILIRUBIN - TOTAL 0.78 mg/dL (0.2-1.3); CALCIUM 8.4 mg/dL (8.5-10.1); CREATININE - SERUM 5.6 mg/dL (0.6-1.3); PHOSPHOROUS 2.4 mg/dL (2.5-4.9); PROTEIN - SERUM 6.4 g/dL (6.4-8.2)
[2019-03-14 10:38] LABS: POTASSIUM - SERUM 3.9 mmol/L (3.5-5.1)
[2019-03-14 11:47] VITALS: BP 113/76
--- NOTE | 2019-03-14 11:55 | NUR ---
FSBS 248. ONLY 2 UNITS HUMULIN R ADMINISTERED. PATIENT IS VERY SENSITIVE TO INSULIN. 4 UNITS DROPPED PATIENTS GLUCOSE 100MG THIS AM AND PATIENT WAS SENT TO ICU FOR UNABLE TO MAINTAIN ADEQUATE GLUCOSE LEVELS, DUE TO THIS, DISCUSSED WITH RENAL GROUP WORK PROGRAM AIDE, CHRISSY, AND INFORMED ONLY 1/2 THE SCHEDULED DOSES PER SLIDING SCALE WERE BEING ADMINISTERED TO PREVENT PATIENT GLUCOSE FROM BOTTOMING OUT. RECEIVED VERBAL OKAY.
--- NOTE | 2019-03-14 15:09 | NUR ---
I have reviewed this patient and I concur with the Shift Assessment completed by the Licensed Practical Nurse today this shift.
--- NOTE | 2019-03-14 15:11 | NUR ---
RESTING IN BED WITH EYES CLOSED. EASILY AROUSED. NO DISTRESS. CALL LIGHT WITHIN REACH.
[2019-03-14 15:42] VITALS: BP 106/62
--- NOTE | 2019-03-14 16:28 | NUR ---
FSBSB 176. NO INSULIN ADMINISTERED. PATIENT VERY SENSITIVE TO INSULIN. GLUCOSE DROPPED 70 POINTS FROM 2 UNITS OF INSULIN ADMINISTERED AT NOON AND THE PATIENT ATE LUNCH. PATIENTS AT BEDSIDE AND STATES HE HAS ALWAYS BEEN SENSITIVE TO INSULIN AND HAS HAD A HARD TIME MAKING OTHER PEOPLE REALIZE THAT. NO INSULIN ADMINISTERED.
--- NOTE | 2019-03-14 18:03 | NUR ---
RESTING IN BED WITH EYES CLOSED. NO DISTRESS. CALL LIGHT ROSARIO CHANEY.
--- NOTE | 2019-03-14 19:30 | NUR ---
PATIENT LAYING IN BED. EYES CLOSED, CHEST RISING AND FALLING. NO DISTRESS NOTED.
[2019-03-14 20:00] VITALS: BP 105/52
--- NOTE | 2019-03-14 23:42 | NUR ---
PATIENT LAYING IN BED. EYES CLOSED, CHEST RISING AND FALLING. NO DISTRESS NOTED.
[2019-03-15] VITALS: BP 102/52
--- NOTE | 2019-03-15 02:05 | NUR ---
I have reviewed this patient and I concur with the Shift Assessment completed by the Licensed Practical Nurse today this shift.
[2019-03-15 04:00] VITALS: BP 111/58
[2019-03-15 04:22] LABS: HEMATOCRIT 26.9 % (42.0-54.0); HEMOGLOBIN 8.7 g/dL (13.5-17.5); MCH 29.4 pg (26.0-34.0); MCHC 32.3 g/dL (31.0-37.0); MCV 90.9 fL (80.0-100.0); PLATELET COUNT 162 10x3/uL (130-400); RBC 2.96 10x6/uL (4.20-6.10); RDW 18.9 % (11.5-14.5); WBC 5.3 10x3/uL (4.8-10.8)
[2019-03-15 04:50] LABS: ALBUMIN 2.7 g/dL (3.4-5.0); ANION GAP 15.3 mmol/L (8-16); BILIRUBIN - TOTAL 0.95 mg/dL (0.2-1.3); CALCIUM 8.5 mg/dL (8.5-10.1); CARBON DIOXIDE 26.5 mmol/L (21.0-32.0); CREATININE - SERUM 6.1 mg/dL (0.6-1.3); PHOSPHOROUS 2.3 mg/dL (2.5-4.9); POTASSIUM - SERUM 3.8 mmol/L (3.5-5.1); PROTEIN - SERUM 6.3 g/dL (6.4-8.2)
[2019-03-15 04:52] LABS: EOSINOPHILS 1 % (0-7); LYMPHOCYTES 11 % (15-50); MONOCYTES 12 % (2-11); NEUTROPHILS 74 % (40-80); PLATELET ESTIMATE NORMAL
--- NOTE | 2019-03-15 05:44 | NUR ---
UNABLE TO GET PATIENT'S WEIGHT DUE TO BEING BEDFAST AND BEDSCALE NOT WORKING.
--- NOTE | 2019-03-15 07:21 | NUR ---
PT IN BED, WATCHING TV, A/O X4, RESP EVEN AND NONLABORED ON RA. LT GROIN IV SL WITH BIOPATCH IN PLACE, DRESSING CDI. PT VERY [place] ASKING IF HE CAN HAVE A BED BATH TODAY. WILL NOTIFY CARBURETOR SPECIALIST. CALL LIGHT IN REACH, BEDSIDE RAILS X2. NAD NOTED, WILL CONTINUE PLAN OF CARE.
[2019-03-15 08:01] VITALS: BP 119/62
--- NOTE | 2019-03-15 08:03 | MORECARE ---
CASE MANAGEMENT DISCHARGE SUMMARY PATIENT: MANA SAXENA UNIT: [id number] ADM DATE: 02/24/19 AGE: 78 : 36 SEX: M ROOM/BED: D.2109 AUTHOR: BJ,DOC PHYSICIAN: REFERRING PHYSICIAN: CASEY NAIDU MD DATE OF SERVICE: 03/15/19 Discharge Plan Patient Name: MANA SAXENA Facility: [facility]:[place] : 1940 Planned Disposition: [facility] Facility Anticipated Discharge Date: 02/24/19 Discharge Date: Expected LOS: 1 Initial Reviewer: [id number] Initial Review Date: 02/22/2019 Generated: 03/15/19 9:03 am Comments DCP- Discharge Planning Updated by [id number]: Ibrahima Nelson on 03/15/19 6:[address] Patient Name: MANA SAXENA Encounter No: [id number] : 1940 Primary Insurance: AETNA MEDICARE PPO or HMO Anticipated DC Date: 02-24-2019 Planned Disposition: [facility] Facility External Planned Provider:[facility], MEDICARE REHAB BED DCP follow-up note: CM NOTIFIED [facility] THAT PT MAY DISCHARGE TO REHAB TODAY. CM FAXED UPDATE WITH THERAPY NOTES TO [facility] [place] AT [phone]. CM WAITING ADMISSION DETERMINATION AND INSURANCE AUTHORIZATION FOR REHAB AT [facility]. Ibrahima Nelson, CASE MANAGEMENT DCP- Discharge Planning Updated by [id number]: Ibrahima Nelson on 03/12/19 3:[address] Patient Name: MANA SAXENA Encounter No: [id number] : 1940 Primary Insurance: AETNA MEDICARE PPO or HMO Anticipated DC Date: 02-24-2019 Planned Disposition: [facility] Facility External Planned Provider: [facility], MEDICARE REHAB BED DCP follow-up note: CM RECEIVED CALL FROM [facility]; REFERRAL WAS RECEIVED, PT'S INSURANCE WILL PAY OUT OF NETWORK BENEFITS JUST THE SAME IN NETWORK TO [facility]. PT WILL NEED THERAPY NOTES WITH PATIENT PARTICIPATION TO GET INSURANCE AUTHORIZATION FOR REHAB. PT NEEDS THERAPY NOTES DOCUMENTING PATIENT PARTICIPATION FOR INSURANCE TO AUTHORIZE . CM WAITING ADMISSION DETERMINATION AND INSURANCE AUTHORIZATION FOR REHAB AT [facility]. Ibrahima Nelson CASE MANAGEMENT DCP- Discharge Planning Updated by [id number]: Ibrahima Nelson on 03/11/19 1:[address] Patient Name: MANA SAXENA Encounter No: [id number] : 1940 Primary Insurance: AETNA MEDICARE PPO or HMO Anticipated DC Date: 02-24-2019 Planned Disposition: [facility] Facility External Planned Provider: [facility], MEDICARE REHAB BED DCP follow-up note: CM [facility], [facility] ARE OUT OF INSURANCE NETWORK AND CANNOT ACCEPT PT. CM SPOKE TO PT AND SPOUSE IN ROOM. REPORTS IT IS OK TO SEND REFERRAL TO [facility] AND IF THEY DON'T ACCEPT, ANY IN NETWORK FACILITY WILL HAVE TO DO, JUST NOT [facility]. CHOICE LETTER COMPLETED. QUEEN ODESSA PROVIDED INSURANCE CUSTOMER SERVICES NUMBER OF AND WEBSITE ADDRESS "[employer]" FOR CM USE IF NEEDED. CM NOTIFIED PUJA OF [facility] OF REHAB REFERRAL, . CM FAXED REFERRAL TO [facility]IA [place] AT [phone]. CM WAITING ADMISSION DETERMINATION AND INSURANCE AUTHORIZATION FOR REHAB AT [facility]. FATOUMATA Bhatt DCP- Discharge Planning Updated by [id number]: Ibrahima Nelson on 03/10/19 2:[address] Patient Name: MANA SAXENA Encounter No: [id number] : 1940 Primary Insurance: AETNA MEDICARE PPO or HMO Anticipated DC Date: 02-24-2019 Planned Disposition: [facility] Facility External Planned Provider[facility] DCP follow-up note: CM FAXED UDPATE WITH OT EVALUATION TO [facility]DO LOZA [facility] AT [phone]. [facility] IS TRYING TO GET APPROVAL FOR OUT OF NETWORK SKILLED REHAB BENEFITS. CM WAITING ADMISSION DETERMINATION FROM [facility] AND REHAB FOR REHAB. PT WILL NEED TO HAVE INSURANCE AUTHORIZATION FOR REHAB SERVICES. IBRAHIMA NELSON, CASE MANAGEMENT Appended by Ibrahima Nelson on 03/10/2019 15:03 CDT: CM RECEIVED CALL FROM [facility]BALDO MADSEN [employer], , WHO INFORMED CM THAT THEY ARE STILL TRYING TO CONNECT WITH PT'S INSURANCE COMPANY TO REQUEST AUTHORIZATION OF SERVICES. CM PROVIDED PT'S SOCIAL SECURITY NUMBER AND FAXED UDPATE TO UBALDO AT [facility] AT [phone]. [facility] IS TRYING TO GET APPROVAL FOR OUT OF NETWORK SKILLED REHAB BENEFITS. CM WAITING ADMISSION DETERMINATION FROM [facility] AND REHAB FOR REHAB. PT WILL NEED TO HAVE INSURANCE AUTHORIZATION FOR REHAB SERVICES. IBRAHIMA NELSON CASE MANAGEMENT DCP- Discharge Planning Updated by [id number]: Ibrahima Nelson on 03/09/19 10:[address] Patient Name: MANA SAXENA Encounter No: [id number] : 1940 Primary Insurance: AETNA MEDICARE PPO or HMO Anticipated DC Date: 02-24-2019 Planned Disposition: [facility] Facility External Planned Provider:[facility], MEDICARE REHAB BED DCP follow-up note: CM REVIEWED CHART, OBTAINED ORDER FOR OCCUPATIONAL THERAPY EVALUATION. CM FAXED UPDATED REFERRAL TO [facility] AND [facility], . CM RECEIVED CALL FROM UBALDO OF [facility], , [facility] IS NOT IN NETWORK WITH PT'S INSURANCE AND THEY HAVE SUBMITTED TO INSURANCE TO SEE IF INSURANCE WILL COVER REHAB AT [facility]. CM WAITING ADMISSION DETERMINATION FROM [facility] AND REHAB FOR REHAB. PT WILL NEED TO HAVE INSURANCE AUTHORIZATION FOR REHAB SERVICES. AFTOUMATA BHATT MANAGEMENT DCP- Discharge Planning Updated by [id number]: Ibrahima Nelson on 03/03/19 9:[address] Patient Name: MANA SAXENA Encounter No: [id number] : 1940 Primary Insurance: AETNA MEDICARE PPO or HMO Anticipated DC Date: 02-24-2019 Planned Disposition: [facility] Facility External Planned Provider: [facility], MEDICARE REHAB BED DCP follow-up note: CM RECEIVED CALL FROM PREETHI [facility] IN[facility]IENT REH[facility], UPDATE PROVIDED VIA PHONE; DOUGLAS CANCELLED REFERRAL AND INSTRUCTED CM TO SEND REFERRAL WHEN PT IS BETTER AND IF PT STILL NEEDS INPATIENT REHAB SERVICES. CM WAITING ADMISSION DETERMINATION FROM [facility] AND REHAB FOR REHAB OR PENITENTIARY CARE. PT WILL NEED TO HAVE INSURANCE AUTHORIZATION WHEN OCCUPATIONAL THERAPY EVALUATION HAS BEEN COMPLETED AND RECEIVED BY CUSTODIAL FACILITY. IBRAHIMA NELSON CASE MANAGEMENT DCP- Discharge Planning Updated by [id number]: Ibrahima Nelson on 03/02/19 10:[address] Patient Name: MANA SAXENA Encounter No: [id number] : 1940 Primary Insurance: AETNA MEDICARE PPO or HMO Anticipated DC Date: 02-24-2019 Planned Disposition: Inpatient Rehab External Planned Provider: [facility] INPATIENT REHAB DCP follow-up note: CM RECEIVED CALL FROM IAN [facility], THEY HAVE ACCEPTED MEDICALLY AND WILL SUBMIT TO INSURANCE FOR AUTHORIZATION FOR INPATIENT REHAB SERVICES. CM ADVISED THAT PT HAD MOVED TO ICU THIS MORNING AND THAT PT HAS BEEN REFUSING THERAPY SERVICES AND FURTHER THAT OCCUPATIONAL THERAPY EVALUATION HAS NOT YET BEEN COMPLETED. IAN WILL FOLLOW UP WITH CALL TO PT'S TO DISCUSS COMPLIANCE WITH THERAPY SERVICES TO SEE IF THE SPOUSE CAN SPEAK TO PT. CM WAITING RETURN CALL FROM PT'S SPOUSE, QUEEN ODESSA. [facility] WILL SUBMIT TO PT'S INSURANCE COMPANY FOR INPATIENT REHAB AUTHORIZATION WHEN OCCUPATIONAL THERAPY EVALUATION HAS BEEN COMPLETED AND RECEIVED. CM WAITING ADMISSION DETERMINATION FROM [facility] AND REHAB OR REHAB OR PENITENTIARY CARE. PT WILL NEED TO HAVE INSURANCE AUTHORIZATION WHEN OCCUPATIONAL THERAPY EVALUATION HAS BEEN COMPLETED AND RECEIVED BY CUSTODIAL FACILITY. FATOUMATA BHATT DCP- Discharge Planning Updated by [email or web address]: Ibrahima Nelson on 03/01/19 3:[address] Patient Name: MANA SAXENA Encounter No: [id number] : [birth year] Primary Insurance: AETNA MEDICARE PPO or HMO Anticipated DC Date: 02-24-2019 Planned Disposition: Inpatient Rehab External [facility] DCP follow-up note: [facility] REVIEWED CHART, OCCUPATIONAL THERAPY EVALUATION HAS STILL NOT BEEN COMPLETED / DOCUMENTED. CM FAXED BASIC REFERRAL TO [facility] FOR INPATIENT REHAB CONSIDERATION AT [phone]. CM TO FAX UPDATE WITH OCCUPATIONAL THERAPY EVALUATION WHEN IT IS COMPLETED AND DOCUMENTED. Ibrahima Nelson CASE MANAGEMENT Appended by Ibrahima Nelson on 03/01/2019 16:14 CDT: [facility] REVIEWED CHART, PT REFUSED PHYSICAL THERAPY TODAY AND THERAPY HAS SIGNED OFF DUE TO PT REFUSAL. OCCUPATIONAL THERAPY EVALUATION STILL NOT COMPLETED. IT IS CM'S EXPERIENCE THAT INSURANCE WILL NOT PAY FOR REHAB SERVICES UNLESS PT IS PARTICIPATING, WHICH THIS PT IS NOT. CM SPOKE TO PT IN ROOM WHO REPORTS HE DID NOT UNDERSTAND; PT STATES HE IS GOING HOME. WHEN CM EXPLAINED IN SLOW DETAIL THAT PT'S SPOUSE WANTS HIM TO GO TO REHAB, PT YELLS AT THAT SOMETHING MUST BE WRONG AND TO CALL . CM CALLED QUEEN ODESSA, SPOUSE, , LEFT MESSAGE ASKING FOR RETURN CALL. CM FAXED REFERRAL TO [facility] IN [place] THAT THEY CAN GET AUTHORIZATION FOR REHAB WITH PT'S REFUSAL TO DO THERAPY OR AT LEAST CONSIDER FOR REMOTE BROADCAST TECHNICIAN CARE. CM WAITING RETURN CALL FROM PT'S SPOUSE, QUEEN ODESSA. CM WAITING ADMISSION DETERMINATION FROM [facility] AND REHAB OR REHAB OR PENITENTIARY CARE. IBRAHIMA NELSON, CASE MANAGEMENT DCP- Discharge Planning Updated by [id number]: Ibrahima Nelson on 02/26/19 12:[address] Patient Name: MANA SAXENA Encounter No: [id number] : 1940 Primary Insurance: AETNA MEDICARE PPO or HMO Anticipated DC Date: 02-24-2019 Planned Disposition: Inpatient Rehab External Planned Provider: [facility] INPATIENT REHAB DCP follow-up note: CM RECEIVED CALL FROM AYUSH OF [facility]; SHE HAD CALLED PT'S SPOUSE TO ARRANGE DELIVERY OF MANUAL WHEELCHAIR AND SPOUSE REFUSED IT STATING THAT SHE CANNOT PHYSICALLY PUSH PT IN A WHEELCHAIR AND REQEUSTED A POWER CHAIR. CM ATTEMPTED TO SEE PT'S SPOUSE IN ROOM, SHE WAS NOT THERE. CM CALLED QUEEN ODESSA, . CM INFORMED THAT AN ELECTRIC WHEELCHAIR REQUIRES VERY DETAILED AND LENGHTY DOCUMENTATION THAT CANNOT BE DONE FROM HOSPITAL, REFERRED HER TO PT'S PRIMARY CARE DOCTOR. CM DISCUSSED AVAILABILITY OF REHAB SERVICES, PROVIDERS AND LOCATIONS. REPORTS SHE IS OLDER THAN PT AND IS HAVING TROUBLE CARING FOR PT IN HIS WEAKENED STATE AND WOULD LIKE REHAB AT [facility] FIRST CHOICE AND [facility] SECOND, [facility] THIRD BUT WILL NOT CONSIDER [place] IN [place]. CHOICE LETTER COMPLETED. CHART REVIEWED, PHYSICAL THERAPY EVALUATION STILL PENDING, NO OCCUPATIONAL THERAPY HAD BEEN ORDERED. CM OBTAINED ORDER FOR OCCUPATIONAL THERAPY EVALUATION. CM TO PROVIDE REFERRAL TO [facility] FOR INPATIENT REHAB CONSIDERATION ONCE PHYSICAL AND OCCUPATIONAL THERAPY EVALUATIONS ARE COMPLETED. Ibrahima Nelson, CASE MANAGEMENT DCP- Discharge Planning Updated by [id number]: Ibrahima Nelson on 02/23/19 3:[address] Patient Name: MANA SAXENA Admission Status: ER Accout number: [id number] Admission Date: 02-22-2019 : 1940 Admission Diagnosis: Attending: CASEY NAIDU Current LOS: 1 Anticipated DC Date: 02-24-2019 Planned Disposition: Home with Home Health Primary Insurance: UNINSURED DISCOUNT PLAN PLANNED EXTERNAL PROVIDER: [facility] Discharge Planning Comments: CM RECEIVED ORDER FOR HOME HEALTH. CM MET WITH PT AND SPOUSE IN ROOM TO DISCUSS DISCHARGE PLANNING AND NEEDS. MANA SAXENA provided verbal consent to discuss current and ongoing needs with/in the presence of: SPOUSE, . ANSWERED ALL QUESTIONS. PT LIVING AT HOME DEPENDENTLY WITH SPOUSE WHO ASSISTS WITH MEDICATIONS. PT HAS BEEN GETTING WEAKER AND NOW NEEDS ASSISTANCE WITH BATHING. PT HAS WALKER WITH WHEELS, SEAT AND BRAKES AND NO MEDICAL EQUIPMENT PROVIDER PREFERENCE. PT HAS HOME HEALTH WITH [facility] FOR NURSING AND PHYSICAL THERAPY. CM DISCUSSED AVAILABILITY OF HOME HEALTH, REHAB SERVICES AND MEDICAL EQUIPMENT. PT'S SPOUSE WANTS [facility] HEALTH RESUMPTION AND REPORTS NEEDING A WHEELCHAIR PT IS NO LONGER ABLE TO CLIMB THE STEPS TO GET ON THE MEDICAID BUS FOR DIALYSIS TRANSPORTATION. PT GOES TO DIALYSIS IN [place] ON MWF SCHEDULE. PT'S FAMILY TO TRANSPORT HOME AT DISCHARGE. CHOICE SIGNED FOR [facility], CHOICE FOR NO PREFERENCE FOR MEDICAL EQUIPMENT PROVIDER COMPLETED BY [facility]. CM COLLECTED REGISTRATION INFORMATION AND FORWARDED TO [facility] OF REGISTRATION. CM SPOKE TO BOWEN TEJADA WHO PROVIDED ORDER FOR WHEELCHAIR. CM CALLED [facility] HOME PATIENT, , SPOKE TO AYUSH AND PROVIDED REFERRAL INFORMATION FOR WHEELCHAIR. CM FAXED ORDER AND CHART INFORMATION TO [facility] PATIENT AT [phone]. [facility] PATIENT TO PROCESS ORDER FOR WHEELCHAIR DELIVERY TO PT IF QUALIFIES; PT'S INSURANCE REQUIRES PRIOR AUTHORIZATION. CM CALLED [facility], , SPOKE TO KURT, PROVIDED REFERRAL INFORMATION, PT IS ON SERVICES WITH [facility] ALREADY.. CM FAXED REFERRAL INFORMATION TO [facility], . FOR DISCHARGE, NOTIFY [facility] AT [phone]; FAX DISCHARGE INFORMATION TO [facility] AT [phone]. Cloth Covered Helmet Puller: Ibrahima Nelson DCPIA - Discharge Planning Initial Assessment Updated by [id number]: Ibrahima Nelson on 02/23/19 3:52 pm * Is the patient Alert and Oriented? Yes * How many steps to enter\\exit or inside your home? RAMP * PCP DR. VIC PAREDES IN [place] * [facility] [place] * Preadmission Environment Home with Family * ADLs Partial Dependent * Partial ADLs (Assistance needed) Bathing Medication Management * Equipment Rolling Walker * Other Equipment ROLLING WALKER WITH SEAT AND BRAKES NO MEDICAL EQUIPMENT PROVIDER PREFERENCE * List name and contact numbers for known caregivers / representatives who currently or will assist patient after discharge: QUEEN ODESSA, SPOUSE, CADEN ANDERSON, * Verbal permission to speak to the caregivers and representatives has been obtained from the patient. Yes * Community resources currently utilized Home Health * Please name any agencies selected above. [facility], NURSING AND PHYSICAL THERAPY * Additional services required to return to the preadmission environment? No * Can the patient safely return to the preadmission environment? Yes * Has this patient been hospitalized within the prior 30 days at any hospital? Yes Coverage Notice Reviewer: [id number] Edilia Nelson Notice Issued Date-Time: 02/23/2019 15:15 Notice Type: Patient Choice Letter Notice Delivered To: Family Member Relationship to Patient: Spouse Metrology Manager Name: QUEEN ODESSA Delivery Method: HAND - Hand Delivered Cristina Days: Prior Verbal Notification: Recipient Understood Notice: Yes Recipient Signature: Yes Med Rec Note Co-signed by Attending: Coverage Notice Comment: ANY MEDICAL EQUIPMENT COMPANY SERVICING [place] // [facility] Reviewer: [id number] Edilia Nelson Notice Issued Date-Time: 02/26/2019 12:00 Notice Type: Patient Choice Letter Notice Delivered To: Family Member Relationship to Patient: Spouse Metrology Manager Name: QUEEN ODESSA Delivery Method: PHONE - Phone Cristina Days: Prior Verbal Notification: Recipient Understood Notice: Yes Recipient Signature: Med Rec Note Co-signed by Attending: Coverage Notice Comment: 1-[facility] 2- [facility] 3-[facility] NOT [place]!! Reviewer: [id number] Edilia Nelson Notice Issued Date-Time: 03/11/2019 15:50 Notice Type: Patient Choice Letter Notice Delivered To: Family Member Relationship to Patient: Spouse Metrology Manager Name: QUEEN ODESSA Delivery Method: HAND - Hand Delivered Cristina Days: Prior Verbal Notification: Recipient Understood Notice: Yes Recipient Signature: Med Rec Note Co-signed by Attending: Coverage Notice Comment: [facility] OR ANY IN NETWORK CUSTODIAL FOR REHAB Last DP export: 03/12/19 3:11 p Patient Name: MANA SAXENA Page [id number] at 0803 All edits/amendments must be made on the electronic document DICTATION DATE: 03/15/19802 MIXING 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
--- NOTE | 2019-03-15 08:25 | NUR ---
AM MEDS GIVEN AT THIS TIME. BLOOD SUGAR OF 98, NO COVERAGE NEEDED PER S/S. PT DENIES ANY NEEDS AT THIS TIME. CALL LIGHT IN REACH, NAD NOTED, WILL CONTINUE TO MONITOR.
--- NOTE | 2019-03-15 08:58 | NUR ---
TO DIALYSIS AT THIS TIME, VIA BED, NAD NOTED.
[2019-03-15] MEDS ORDERED: PROTONIX40 MG PO (11:08)
[2019-03-15] MEDS ORDERED: CARAFATE1 G PO (11:10)
[2019-03-15] MEDS ORDERED: MIDODRINE HCL5 MG PO (11:16)
[2019-03-15] MEDS ORDERED: CHRONULAC30 ML PO (11:19)
--- NOTE | 2019-03-15 12:02 | MORECARE ---
CASE MANAGEMENT DISCHARGE SUMMARY PATIENT: MANA SAXENA UNIT: [id number] ADM DATE: 02/24/19 AGE: 78 : 36 SEX: M ROOM/BED: D.2104 AUTHOR: BJ,DOC PHYSICIAN: REFERRING PHYSICIAN: CASEY NAIDU MD DATE OF SERVICE: 03/15/19 Discharge Plan Patient Name: MANA SAXENA Facility: [facility]:[place] : 1940 Planned Disposition: Nursing Facility [facility] Cert Anticipated Discharge Date: 03/15/19 Discharge Date: Expected LOS: 19 Initial Reviewer: [id number] Initial Review Date: 02/22/2019 Generated: 03/15/19 1:02 pm Comments DCP- Discharge Planning Updated by [id number]: Ibrahima Nelson on 03/15/19 6:[address] Patient Name: MANA SAXENA Encounter No: [id number] : 1940 Primary Insurance: AETNA MEDICARE PPO or HMO Anticipated DC Date: 02-24-2019 Planned Disposition: Detention Facility External Planned Provider:[facility], MEDICARE REHAB BED DCP follow-up note: CM NOTIFIED [facility] THAT PT MAY DISCHARGE TO REHAB TODAY. CM FAXED UPDATE WITH THERAPY NOTES TO [facility]IA [facility] AT [phone]. CM WAITING ADMISSION DETERMINATION AND INSURANCE AUTHORIZATION FOR REHAB AT [facility] IN [place]. Ibrahima Nelson, CASE MANAGEMENT DCP- Discharge Planning Updated by [id number]: Ibrahima Nelson on 03/12/19 3:[address] Patient Name: MANA SAXENA Encounter No: [id number] : 1940 Primary Insurance: AETNA MEDICARE PPO or HMO Anticipated DC Date: 02-24-2019 Planned Disposition: Detention Facility External Planned Provider: [facility], MEDICARE REHAB BED DCP follow-up note: CM RECEIVED CALL FROM [facility]; REFERRAL WAS RECEIVED, PT'S INSURANCE WILL PAY OUT OF NETWORK BENEFITS JUST THE SAME IN NETWORK TO [facility]. PT WILL NEED THERAPY NOTES WITH PATIENT PARTICIPATION TO GET INSURANCE AUTHORIZATION FOR REHAB. PT NEEDS THERAPY NOTES DOCUMENTING PATIENT PARTICIPATION FOR INSURANCE TO AUTHORIZE . CM WAITING ADMISSION DETERMINATION AND INSURANCE AUTHORIZATION FOR REHAB AT [facility]. Ibrahima Nelson CASE MANAGEMENT DCP- Discharge Planning Updated by [id number]: Ibrahima Nelson on 03/11/19 1:[address] Patient Name: MANA SAXENA Encounter No: [id number] : 1940 Primary Insurance: AETNA MEDICARE PPO or HMO Anticipated DC Date: 02-24-2019 Planned Disposition: Detention Facility External Planned Provider: [facility], MEDICARE REHAB BED DCP follow-up note: CM [facility] OUT [facility]URANCE NETWORK AND CANNOT ACCEPT PT. CM SPOKE TO PT AND SPOUSE IN ROOM. REPORTS IT IS OK TO SEND REFERRAL TO [facility] AND IF THEY DON'T ACCEPT, ANY IN NETWORK FACILITY WILL HAVE TO DO, JUST NOT [facility]. CHOICE LETTER COMPLETED. QUEEN ODESSA PROVIDED INSURANCE CUSTOMER SERVICES NUMBER OF AND WEBSITE ADDRESS "[employer]" FOR CM USE IF NEEDED. CM NOTIFIED PUJA OF [facility] OF REHAB REFERRAL, . CM FAXED REFERRAL TO [facility] VIA [facility] AT [phone]. CM WAITING ADMISSION DETERMINATION AND INSURANCE AUTHORIZATION FOR REHAB AT [facility]. FATOUMATA Bhatt DCP- Discharge Planning Updated by [id number]: Ibrahima Nelson on 03/10/19 2:[address] Patient Name: MANA SAXENA Encounter No: [id number] : 1940 Primary Insurance: AETNA MEDICARE PPO or HMO Anticipated DC Date: 02-24-2019 Planned Disposition: Detention Facility External Planned Provider:[facility] DCP follow-up note: CM FAXED UDPATE WITH OT EV[facility]ATION [facility] AT [phone]. [facility] IS TRYING TO GET APPROVAL FOR OUT OF NETWORK SKILLED REHAB BENEFITS. CM WAITING ADMISSION DETERMINATION FROM [facility] AND [facility] FOR REHAB. PT WILL NEED TO HAVE INSURANCE AUTHORIZATION FOR REHAB SERVICES. IBRAHIMA NELSON, CASE MANAGEMENT Appended by Ibrahima Nelson on 03/10/2019 15:03 CDT: CM RECEIVED CALL FROM [facility], , WHO INFORMED CM THAT THEY ARE STILL TRYING TO CONNECT WITH PT'S INSURANCE COMPANY TO REQUEST AUTHORIZATION OF SERVICES. CM PROVIDED PT'S SOCIAL SECURITY NUMBER AND FAXED UDPATE TO UBALDO AT [facility] AT [phone]. [facility] IS TRYING TO GET APPROVAL FOR OUT OF NETWORK SKILLED REHAB BENEFITS. CM WAITING ADMISSION DETERMINATION FROM [facility] AND [facility] FOR REHAB. PT WILL NEED TO HAVE INSURANCE AUTHORIZATION FOR REHAB SERVICES. IBRAHIMA NELSON CASE MANAGEMENT DCP- Discharge Planning Updated by [id number]: Ibrahima Nelson on 03/09/19 10:[address] Patient Name: MANA SAXENA Encounter No: [id number] : 1940 Primary Insurance: AETNA MEDICARE PPO or HMO Anticipated DC Date: 02-24-2019 Planned Disposition: Detention Facility External Planned Provider:[facility], MEDICARE REHAB BED DCP follow-up note: CM REVIEWED CHART, OBTAINED ORDER FOR OCCUPATIONAL THERAPY EVALUATION. CM FAXED UPDATED REFERRAL TO [facility] AND [facility], . CM RECEIVED CALL FROM UBALDO OF [facility], , [facility] IS NOT IN NETWORK WITH PT'S INSURANCE AND THEY HAVE SUBMITTED TO INSURANCE TO SEE IF INSURANCE WILL COVER REHAB AT [facility]. CM WAITING ADMISSION DETERMINATION FROM [facility] AND [facility] FOR REHAB. PT WILL NEED TO HAVE INSURANCE AUTHORIZATION FOR REHAB SERVICES. FATOUMATA BHATT DCP- Discharge Planning Updated by [id number]: Ibrahima Nelson on 03/03/19 9:[address] Patient Name: MANA SAXENA Encounter No: [id number] : 1940 Primary Insurance: AETNA MEDICARE PPO or HMO Anticipated DC Date: 02-24-2019 Planned Disposition: Detention Facility External Planned Provider: [facility], MEDICARE REHAB BED DCP follow-up note: CM RECEIVED CALL FROM [facility], UPDATE PROVIDED VIA PHONE; [facility] CANCELLED REFERRAL AND INSTRUCTED CM TO SEND REFERRAL WHEN PT IS BETTER AND IF PT STILL NEEDS INPATIENT REHAB SERVICES. CM WAITING ADMISSION DETERMINATION FROM [facility] AND [facility] FOR REHAB OR SPORTS MARKETER CARE. PT WILL NEED TO HAVE INSURANCE AUTHORIZATION WHEN OCCUPATIONAL THERAPY EVALUATION HAS BEEN COMPLETED AND RECEIVED BY [facility]. FATOUMATA BHATT DCP- Discharge Planning Updated by [id number]: Ibrahima Nelson on 03/02/19 10:[address] Patient Name: MANA SAXENA Encounter No: [id number] : 1940 Primary Insurance: AETNA MEDICARE PPO or HMO Anticipated DC Date: 02-24-2019 Planned Disposition: Inpatient Rehab External Planned Provider: [facility] INPATIENT REHAB DCP follow-up note: CM RECEIVED CALL FROM IAN [facility] THEY HAVE ACCEPTED MEDICALLY AND WILL SUBMIT TO INSURANCE FOR AUTHORIZATION FOR INPATIENT REHAB SERVICES. CM ADVISED THAT PT HAD MOVED TO ICU THIS MORNING AND THAT PT HAS BEEN REFUSING THERAPY SERVICES AND FURTHER THAT OCCUPATIONAL THERAPY EVALUATION HAS NOT YET BEEN COMPLETED. IAN WILL FOLLOW UP WITH CALL TO PT'S TO DISCUSS COMPLIANCE WITH THERAPY SERVICES TO SEE IF THE SPOUSE CAN SPEAK TO PT. CM WAITING RETURN CALL FROM PT'S SPOUSE, QUEEN ODESSA. [facility] WILL SUBMIT TO PT'S INSURANCE COMPANY FOR INPATIENT REHAB AUTHORIZATION WHEN OCCUPATIONAL THERAPY EVALUATION HAS BEEN COMPLETED AND RECEIVED. CM WAITING ADMISSION DETERMINATION FROM [facility] AND REHAB OR REHAB OR ASSISTED CARE. PT WILL NEED TO HAVE INSURANCE AUTHORIZATION WHEN OCCUPATIONAL THERAPY EVALUATION HAS BEEN COMPLETED AND RECEIVED BY [facility]. FATOUMATA BHATT DCP- Discharge Planning Updated by [id number]: Ibrahima Nelson on 03/01/19 3:[address] Patient Name: MANA SAXENA Encounter No: [id number] : [birth year] Primary Insurance: AETNA MEDICARE PPO or HMO Anticipated DC Date: 02-24-2019 Planned Disposition: Inpatient Rehab External Planned Provider: [facility] INPATIENT REHAB DCP follow-up note: [facility] REVIEWED CHART, OCCUPATIONAL THERAPY EVALUATION HAS STILL NOT BEEN COMPLETED / DOCUMENTED. CM FAXED BASIC REFERRAL TO [facility] FOR INPATIENT REHAB CONSIDERATION AT [phone]. CM TO FAX UPDATE WITH OCCUPATIONAL THERAPY EVALUATION WHEN IT IS COMPLETED AND DOCUMENTED. Ibrahima Nelson CASE MANAGEMENT Appended by Ibrahima Nelson on 03/01/2019 16:14 CDT: [facility] REVIEWED CHART, PT REFUSED PHYSICAL THERAPY TODAY AND THERAPY HAS SIGNED OFF DUE TO PT REFUSAL. OCCUPATIONAL THERAPY EVALUATION STILL NOT COMPLETED. IT IS CM'S EXPERIENCE THAT INSURANCE WILL NOT PAY FOR REHAB SERVICES UNLESS PT IS PARTICIPATING, WHICH THIS PT IS NOT. CM SPOKE TO PT IN ROOM WHO REPORTS HE DID NOT UNDERSTAND; PT STATES HE IS GOING HOME. WHEN CM EXPLAINED IN SLOW DETAIL THAT PT'S SPOUSE WANTS HIM TO GO TO REHAB, PT YELLS AT THAT SOMETHING MUST BE WRONG AND TO CALL . CM CALLED QUEEN ODESSA, SPOUSE, , LEFT MESSAGE ASKING FOR RETURN CALL. CM FAXED REFERRAL TO [facility]AB IN HOPES THAT THEY CAN GET AUTHORIZATION FOR REHAB WITH PT'S REFUSAL TO DO THERAPY OR AT LEAST CONSIDER FOR SPORTS MARKETER CARE. CM WAITING RETURN CALL FROM PT'S SPOUSE, QUEEN ODESSA. CM WAITING ADMISSION DETERMINATION FROM [facility] AND REHAB OR REHAB OR SPORTS MARKETER CARE. IBRAHIMA NELSON CASE MANAGEMENT DCP- Discharge Planning Updated by [id number]: Ibrahima Nelson on 02/26/19 12:[address] Patient Name: MANA SAXENA Encounter No: [id number] : 1940 Primary Insurance: AETNA MEDICARE PPO or HMO Anticipated DC Date: 02-24-2019 Planned Disposition: Inpatient Rehab External Planned Provider: [facility] INPATIENT REHAB DCP follow-up note: CM RECEIVED CALL FROM AUYSH OF [facility] HOME PATIENT; SHE HAD CALLED PT'S SPOUSE TO ARRANGE DELIVERY OF MANUAL WHEELCHAIR AND SPOUSE REFUSED IT STATING THAT SHE CANNOT PHYSICALLY PUSH PT IN A WHEELCHAIR AND REQEUSTED A POWER CHAIR. CM ATTEMPTED TO SEE PT'S SPOUSE IN ROOM, SHE WAS NOT THERE. CM CALLED QUEEN ODESSA, . CM INFORMED THAT AN ELECTRIC WHEELCHAIR REQUIRES VERY DETAILED AND LENGHTY DOCUMENTATION THAT CANNOT BE DONE FROM HOSPITAL, REFERRED HER TO PT'S PRIMARY CARE DOCTOR. CM DISCUSSED AVAILABILITY OF REHAB SERVICES, PROVIDERS AND LOCATIONS. REPORTS SHE IS OLDER THAN PT AND IS HAVING TROUBLE CARING FOR PT IN HIS WEAKENED STATE AND WOULD LIKE REHAB AT [facility] FIRST CHOICE AND [facility]OND, [facility] THIRD BUT WILL NOT CONSIDER [facility] IN [place]. CHOICE LETTER COMPLETED. CHART REVIEWED, PHYSICAL THERAPY EVALUATION STILL PENDING, NO OCCUPATIONAL THERAPY HAD BEEN ORDERED. CM OBTAINED ORDER FOR OCCUPATIONAL THERAPY EVALUATION. CM TO PROVIDE REFERRAL TO [facility] FOR INPATIENT REHAB CONSIDERATION ONCE PHYSICAL AND OCCUPATIONAL THERAPY EVALUATIONS ARE COMPLETED. Ibrahima Nelson, CASE MANAGEMENT DCP- Discharge Planning Updated by [id number]: Ibrahima Nelson on 02/23/19 3:[address] Patient Name: MANA SAXENA Admission Status: ER Accout number: [id number] Admission Date: 02-22-2019 : 1940 Admission Diagnosis: Attending: CASEY NAIDU Current LOS: 1 Anticipated DC Date: 02-24-2019 Planned Disposition: Home with Home Health Primary Insurance: UNINSURED DISCOUNT PLAN PLANNED EXTERNAL PROVIDER: [facility] Discharge Planning Comments: CM RECEIVED ORDER FOR HOME HEALTH. CM MET WITH PT AND SPOUSE IN ROOM TO DISCUSS DISCHARGE PLANNING AND NEEDS. MANA SAXENA provided verbal consent to discuss current and ongoing needs with/in the presence of: SPOUSE, . ANSWERED ALL QUESTIONS. PT LIVING AT HOME DEPENDENTLY WITH SPOUSE WHO ASSISTS WITH MEDICATIONS. PT HAS BEEN GETTING WEAKER AND NOW NEEDS ASSISTANCE WITH BATHING. PT HAS WALKER WITH WHEELS, SEAT AND BRAKES AND NO MEDICAL EQUIPMENT PROVIDER PREFERENCE. PT HAS HOME HEALTH WITH [facility] FOR NURSING AND PHYSICAL THERAPY. CM DISCUSSED AVAILABILITY OF HOME HEALTH, REHAB SERVICES AND MEDICAL EQUIPMENT. PT'S SPOUSE WANTS [facility] RESUMPTION AND REPORTS NEEDING A WHEELCHAIR PT IS NO LONGER ABLE TO CLIMB THE STEPS TO GET ON THE MEDICAID BUS FOR DIALYSIS TRANSPORTATION. PT GOES TO DIALYSIS IN [place] ON MWF SCHEDULE. PT'S FAMILY TO TRANSPORT HOME AT DISCHARGE. CHOICE SIGNED FOR [facility], CHOICE FOR NO PREFERENCE FOR MEDICAL EQUIPMENT PROVIDER COMPLETED BY [facility]. CM COLLECTED REGISTRATION INFORMATION AND FORWARDED TO [facility] OF REGISTRATION. CM SPOKE TO BOWEN TEJADA WHO PROVIDED ORDER FOR WHEELCHAIR. CM CALLED [facility] HOME PATIENT, , SPOKE TO AYUSH AND PROVIDED REFERRAL INFORMATION FOR WHEELCHAIR. CM FAXED ORDER AND CHART INFORMATION TO [facility] PATIENT AT [phone]. [facility] PATIENT TO PROCESS ORDER FOR WHEELCHAIR DELIVERY TO PT IF QUALIFIES; PT'S INSURANCE REQUIRES PRIOR AUTHORIZATION. CM CALLED [facility], , SPOKE TO KURT, PROVIDED REFERRAL INFORMATION, PT IS ON SERVICES WITH [facility] ALREADY.. CM FAXED REFERRAL INFORMATION TO [facility], . FOR DISCHARGE, NOTIFY [facility] AT [phone]; FAX DISCHARGE INFORMATION TO [facility] AT [phone]. Bar Hostess: Ibrahima Nelson DCPIA - Discharge Planning Initial Assessment Updated by [email or web address]: Ibrahima Nelson on 02/23/19 3:52 pm * Is the patient Alert and Oriented? Yes * How many steps to enter\\exit or inside your home? RAMP * PCP DR. VIC PAREDES IN [place] * Pharmacy [facility] IN [place] * Preadmission Environment Home with Family * ADLs Partial Dependent * Partial ADLs (Assistance needed) Bathing Medication Management * Equipment Rolling Walker * Other Equipment ROLLING WALKER WITH SEAT AND BRAKES NO MEDICAL EQUIPMENT PROVIDER PREFERENCE * List name and contact numbers for known caregivers / representatives who currently or will assist patient after discharge: QUEEN ODESSA, SPOUSE, CADEN ANDERSON, * Verbal permission to speak to the caregivers and representatives has been obtained from the patient. Yes * Community resources currently utilized Home Health * Please name any agencies selected above. [facility], NURSING AND PHYSICAL THERAPY * Additional services required to return to the preadmission environment? No * Can the patient safely return to the preadmission environment? Yes * Has this patient been hospitalized within the prior 30 days at any hospital? Yes Coverage Notice Reviewer: [id number] Edilia Nelson Notice Issued Date-Time: 02/23/2019 15:15 Notice Type: Patient Choice Letter Notice Delivered To: Family Member Relationship to Patient: Spouse Boot Lace Cutter Machine Name: QUEEN ODESSA Delivery Method: HAND - Hand Delivered Cristina Days: Prior Verbal Notification: Recipient Understood Notice: Yes Recipient Signature: Yes Med Rec Note Co-signed by Attending: Coverage Notice Comment: ANY MEDICAL EQUIPMENT COMPANY SERVICING [place] // [facility] Reviewer: [id number] Nelson Notice Issued Date-Time: 02/26/2019 12:00 Notice Type: Patient Choice Letter Notice Delivered To: Family Member Relationship to Patient: Spouse Boot Lace Cutter Machine Name: QUEEN ODESSA Delivery Method: PHONE - Phone Cristina Days: Prior Verbal Notification: Recipient Understood Notice: Yes Recipient Signature: Med Rec Note Co-signed by Attending: Coverage Notice Comment: 1-[facility] 2- [facility] 3-[facility] NOT [facility]!! Reviewer: [id number] Edilia Nelson Notice Issued Date-Time: 03/11/2019 15:50 Notice Type: Patient Choice Letter Notice Delivered To: Family Member Relationship to Patient: Spouse Boot Lace Cutter Machine Name: QUEEN ODESSA Delivery Method: HAND - Hand Delivered Cristina Days: Prior Verbal Notification: Recipient Understood Notice: Yes Recipient Signature: Med Rec Note Co-signed by Attending: Coverage Notice Comment: [facility] OR ANY IN NETWORK [facility] FOR REHAB Last DP export: 03/15/19 7:03 a Patient Name: MANA SAXENA Page [phone] at 1202 All edits/amendments must be made on the electronic document DICTATION DATE: 03/15/19 120 VEGETABLE II FARMWORKER: GRACE 03/15/19 1202 RPT#: [id number] DC DATE: STATUS: ADM IN [facility] [address] [place] [address] END OF REPORT
--- NOTE | 2019-03-15 12:12 | MORECARE ---
CASE MANAGEMENT DISCHARGE SUMMARY PATIENT: MANA SAXENA UNIT: [id number] ADM DATE: 02/24/19 AGE: 78 : 36 SEX: M ROOM/BED: D.2104 AUTHOR: BJDOC PHYSICIAN: REFERRING PHYSICIAN: CASEY NAIDU MD DATE OF SERVICE: 03/15/19 Discharge Plan Patient Name: MANA SAXENA Facility: [facility]:[place] : 1940 Planned Disposition: Nursing Facility [facility] Cert Anticipated Discharge Date: 03/15/19 Discharge Date: Expected LOS: 19 Initial Reviewer: [id number] Initial Review Date: 02/22/2019 Generated: 03/15/19 1:12 pm Comments DCP- Discharge Planning Updated by [id number]: Ibrahima Nelson on 03/15/19 11:[address] Patient Name: MANA SAXENA Encounter No: [id number] : 1940 Primary Insurance: AETNA MEDICARE PPO or HMO Anticipated DC Date: 03-15-2019 Planned Disposition: Nursing Facility [facility] Cert External [facility] DCP follow-up note: [facility]A RECEIVED MESSAGE FROM BRIANNA, PT'S INSURANCE WILL NOT APPROVE REHAB SERVICES PT HAS BEEN REFUSING THERAPY. [facility] WILL ACCEPT FOR MACHINE GUN MECHANIC CARE IF PT'S FAMILY AGREES AND WILL WORK OUT FINANCIAL ARRANGEMENTS. CM CALLED AND NOTIFIED QUEEN ODESSA AT [phone] WHO INFORMED CM THAT SHE IS NOT ABLE TO TAKE CARE OF PT AT HOME BY HERSELF AND WILL DISCUSS MACHINE GUN MECHANIC CARE ARRANGEMENTS WITH [facility]. CM NOTIFIED PUJA MADSEN [facility]. [facility] IRRIGATION INSTALLATION SPECIALIST CALLING PT'S NOW TO DISCUSS FINANCIAL ARRANGEMENTS FOR MACHINE GUN MECHANIC CARE PLACEMENT. CM WAITING FAMILY AND INTERMEDIATE TO WORK OUT FINANCIAL ARRANGEMENTS FOR [facility] INTERMEDIATE PLACEMENT. FATOUMATA Bhatt DCP- Discharge Planning Updated by [id number]: Ibrahima Nelson on 03/15/19 6:[address] Patient Name: MANA SAXENA Encounter No: [id number] : 1940 Primary Insurance: AETNA MEDICARE PPO or HMO Anticipated DC Date: 02-24-2019 Planned Disposition: Nursing Home Facility External Planned Provider:[facility], MEDICARE REHAB BED DCP follow-up note: CM NOTIFIED [facility] THAT PT MAY DISCHARGE TO REHAB TODAY. CM FAXED UPDATE WITH THERAPY NOTES TO [facility] VIA [facility] AT [phone]. CM WAITING ADMISSION DETERMINATION AND INSURANCE AUTHORIZATION FOR REHAB AT [facility]. Ibrahima Nelson CASE MANAGEMENT DCP- Discharge Planning Updated by [id number]: Ibrahima Nelson on 03/12/19 3:[address] Patient Name: MANA SAXENA Encounter No: [id number] : 1940 Primary Insurance: AETNA MEDICARE PPO or HMO Anticipated DC Date: 02-24-2019 Planned Disposition: Nursing Home Facility External Planned Provider: [facility], MEDICARE REHAB BED DCP follow-up note: CM RECEIVED CALL FROM PUJA [facility]; REFERRAL WAS RECEIVED, PT'S INSURANCE WILL PAY OUT OF NETWORK BENEFITS JUST THE SAME IN NETWORK TO [facility]. PT WILL NEED THERAPY NOTES WITH PATIENT PARTICIPATION TO GET INSURANCE AUTHORIZATION FOR REHAB. PT NEEDS THERAPY NOTES DOCUMENTING PATIENT PARTICIPATION FOR INSURANCE TO AUTHORIZE . CM WAITING ADMISSION DETERMINATION AND INSURANCE AUTHORIZATION FOR REHAB AT [facility]. Ibrahima Nelson CASE MANAGEMENT DCP- Discharge Planning Updated by [id number]: Ibrahima Nelson on 03/11/19 1:[address] Patient Name: MANA SAXENA Encounter No: [id number] : 1940 Primary Insurance: AETNA MEDICARE PPO or HMO Anticipated DC Date: 02-24-2019 Planned Disposition: Nursing Home Facility External Planned Provider: [facility], MEDICARE REHAB BED DCP follow-up note: CM RECEIVED CALL FROM DAVID, THEY ARE OUT OF INSURANCE NETWORK AND CANNOT ACCEPT PT. CM SPOKE TO PT AND SPOUSE IN ROOM. REPORTS IT IS OK TO SEND REFERRAL TO [facility] AND IF THEY DON'T ACCEPT, ANY IN NETWORK FACILITY WILL HAVE TO DO, JUST NOT [facility]. CHOICE LETTER COMPLETED. QUEEN ODESSA PROVIDED INSURANCE CUSTOMER SERVICES NUMBER OF AND WEBSITE ADDRESS "[email or web address]" FOR CM USE IF NEEDED. [facility], . CM FAXED REFERRAL TO [facility] VIA PUJA AT [phone]. CM WAITING ADMISSION DETERMINATION AND INSURANCE AUTHORIZATION FOR REHAB AT [facility] IN [place]. FATOUMATA Bhatt DCP- Discharge Planning Updated by [id number]: Ibrahima Nelson on 03/10/19 2:[address] Patient Name: MANA SAXENA Encounter No: [id number] : 1940 Primary Insurance: AETNA MEDICARE PPO or HMO Anticipated DC Date: 02-24-2019 Planned Disposition: Nursing Home Facility External Planned Provider:[facility], MEDICARE REHAB BED DCP follow-up note: CM FAXED UDPATE WITH OT EVALUATION [facility] AT [phone]. [facility] IS TRYING TO GET APPROVAL FOR OUT OF NETWORK SKILLED REHAB BENEFITS. CM WAITING ADMISSION DETERMINATION FROM [facility] FOR REHAB. PT WILL NEED TO HAVE INSURANCE AUTHORIZATION FOR REHAB SERVICES. IBRAHIMA NELSON CASE MANAGEMENT Appended by Ibrahima Nelson on 03/10/2019 15:03 CDT: CM RECEIVED CALL FROM [facility] [employer], , WHO INFORMED CM THAT THEY ARE STILL TRYING TO CONNECT WITH PT'S INSURANCE COMPANY TO REQUEST AUTHORIZATION OF SERVICES. CM PROVIDED PT'S SOCIAL SECURITY NUMBER AND FA[facility]ED UDPATE [facility] AT [phone]. [facility] [employer] IS TRYING TO GET APPROVAL FOR OUT OF NETWORK SKILLED REHAB BENEFITS. CM WAITING ADMISSION DETERMINATION FROM [facility] FOR REHAB. PT WILL NEED TO HAVE INSURANCE AUTHORIZATION FOR REHAB SERVICES. FATOUMATA BHATT DCP- Discharge Planning Updated by [id number]: Ibrahima Nelson on 03/09/19 10:[address] Patient Name: MANA SAXENA Encounter No: [id number] : 1940 Primary Insurance: AETNA MEDICARE PPO or HMO Anticipated DC Date: 02-24-2019 Planned Disposition: Nursing Home Facility External Planned Provider:[facility], MEDICARE REHAB BED DCP follow-up note: CM REVIEWED CHART, OBTAINED ORDER FOR OCCUPATIONAL THERAPY EVALUATION. CM FAXED UPDATED REFERRAL TO [facility], . CM RECEIVED CALL FROM [facility] [employer], , [facility]'S INSURANCE AND THEY HAVE SUBMITTED TO INSURANCE TO SEE IF INSURANCE WILL COVER REHAB AT [facility]. CM WAITING ADMISSION DETERMINATION FROM [facility] FOR REHAB. PT WILL NEED TO HAVE INSURANCE AUTHORIZATION FOR REHAB SERVICES. IBRAHIMA NELSON CASE MANAGEMENT DCP- Discharge Planning Updated by [id number]: Ibrahima Nelson on 03/03/19 9:[address] Patient Name: MANA SAXENA Encounter No: [id number] : 1940 Primary Insurance: AETNA MEDICARE PPO or HMO Anticipated DC Date: 02-24-2019 Planned Disposition: Nursing Home Facility External Planned Provider: [facility], MEDICARE REHAB BED DCP follow-up note: CM RECEIVED CALL FROM PREETHI OF [facility] RE[facility], UPDATE PROVIDED VIA PHONE; D[facility] CANCELLED REFERRAL AND INSTRUCTED CM TO SEND REFERRAL WHEN PT IS BETTER AND IF PT STILL NEEDS INPATIENT REHAB SERVICES. CM WAITING ADMISSION DETERMINATION FROM [facility] FOR REHAB OR [facility]. PT WILL NEED TO HAVE INSURANCE AUTHORIZATION WHEN OCCUPATIONAL THERAPY EVALUATION HAS BEEN COMPLETED AND [facility]. IBRAHIMA NELSON CASE MANAGEMENT DCP- Discharge Planning Updated by [id number]: Ibrahima Nelson on 03/02/19 10:[address] Patient Name: MANA SAXENA Encounter No: [id number] : 1940 Primary Insurance: AETNA MEDICARE PPO or HMO Anticipated DC Date: 02-24-2019 Planned Disposition: Inpatient Rehab External Planned Provider: [facility] DCP follow-up note: CM RECEIVED CALL FROM IAN OF [facility], THEY HAVE ACCEPTED MEDICALLY AND WILL SUBMIT TO INSURANCE FOR AUTHORIZATION FOR INPATIENT REHAB SERVICES. CM ADVISED THAT PT HAD MOVED TO ICU THIS MORNING AND THAT PT HAS BEEN REFUSING THERAPY SERVICES AND FURTHER THAT OCCUPATIONAL THERAPY EVALUATION HAS NOT YET BEEN COMPLETED. IAN WILL FOLLOW UP WITH CALL TO PT'S TO DISCUSS COMPLIANCE WITH THERAPY SERVICES TO SEE IF THE SPOUSE CAN SPEAK TO PT. CM WAITING RETURN CALL FROM PT'S SPOUSE, QUEEN ODESSA. [facility] WILL SUBMIT TO PT'S INSURANCE COMPANY FOR INPATIENT REHAB AUTHORIZATION WHEN OCCUPATIONAL THERAPY EVALUATION HAS BEEN COMPLETED AND RECEIVED. CM WAITING ADMISSION DETERMINATION FROM [facility] OR REHAB OR MACHINE GUN MECHANIC CARE. PT WILL NEED TO HAVE INSURANCE AUTHORIZATION WHEN OCCUPATIONAL THERAPY EVALUATION HAS BEEN COMPLETED AND RECEIVED BY NURSING HOME FACILITY. FATOUMATA BHATT DCP- Discharge Planning Updated by [id number]: Ibrahima Nelson on 03/01/19 3:[address] Patient Name: MANA SAXENA Encounter No: [id number] : 1940 Primary Insurance: AETNA MEDICARE PPO or HMO Anticipated DC Date: 02-24-2019 Planned Disposition: Inpatient Rehab External Planned Provider: [facility] DCP follow-up note: CM REVIEWED CHART, OCCUPATIONAL THERAPY EVALUATION HAS STILL NOT BEEN COMPLETED / DOCUMENTED. CM FAXED BASIC REFERRAL TO [facility] FOR INPATIENT REHAB CONSIDERATION AT [phone]. CM TO FAX UPDATE WITH OCCUPATIONAL THERAPY EVALUATION WHEN IT IS COMPLETED AND DOCUMENTED. Ibrahima Nelson CASE MANAGEMENT Appended by Ibrahima Nelson on 03/01/2019 16:14 CDT: CM REVIEWED CHART, PT REFUSED PHYSICAL THERAPY TODAY AND THERAPY HAS SIGNED OFF DUE TO PT REFUSAL. OCCUPATIONAL THERAPY EVALUATION STILL NOT COMPLETED. IT IS CM'S EXPERIENCE THAT INSURANCE WILL NOT PAY FOR REHAB SERVICES UNLESS PT IS PARTICIPATING, WHICH THIS PT IS NOT. CM SPOKE TO PT IN ROOM WHO REPORTS HE DID NOT UNDERSTAND; PT STATES HE IS GOING HOME. WHEN CM EXPLAINED IN SLOW DETAIL THAT PT'S SPOUSE WANTS HIM TO GO TO REHAB, PT YELLS AT THAT SOMETHING MUST BE WRONG AND TO CALL . CM CALLED QUEEN ODESSA, SPOUSE, , LEFT MESSAGE ASKING FOR RETURN CALL. CM FAXED REFERRAL TO [facility] [place] THAT THEY CAN GET AUTHORIZATION FOR REHAB WITH PT'S REFUSAL TO DO THERAPY OR AT LEAST CONSIDER FOR [facility]ARE. CM WAITING RETURN CALL FROM PT'S SPOUSE, QUEEN ODESSA. CM WAITING ADMISSION DETERMINATION FROM [facility] AND REHAB OR REHAB OR MACHINE GUN MECHANIC CARE. FATOUMATA BHATT DCP- Discharge Planning Updated by [id number]: Ibrahima Nelson on 02/26/19 12:[address] Patient Name: MANA SAXENA Encounter No: [id number] : 1940 Primary Insurance: AETNA MEDICARE PPO or HMO Anticipated DC Date: 02-24-2019 Planned Disposition: Inpatient Rehab External Planned Provider: [facility] DCP follow-up note: CM RECEIVED CALL FROM AYUSH OF [facility]; SHE HAD CALLED PT'S SPOUSE TO ARRANGE DELIVERY OF MANUAL WHEELCHAIR AND SPOUSE REFUSED IT STATING THAT SHE CANNOT PHYSICALLY PUSH PT IN A WHEELCHAIR AND REQEUSTED A POWER CHAIR. CM ATTEMPTED TO SEE PT'S SPOUSE IN ROOM, SHE WAS NOT THERE. CM CALLED QUEEN ODESSA, . CM INFORMED THAT AN ELECTRIC WHEELCHAIR REQUIRES VERY DETAILED AND LENGHTY DOCUMENTATION THAT CANNOT BE DONE FROM HOSPITAL, REFERRED HER TO PT'S PRIMARY CARE DOCTOR. CM DISCUSSED AVAILABILITY OF REHAB SERVICES, PROVIDERS AND LOCATIONS. REPORTS SHE IS OLDER THAN PT AND IS HAVING TROUBLE CARING FOR PT IN HIS WEAKENED STATE AND WOULD LIKE REHAB AT [facility] FIRST CHOICE AND [facility] SECOND, [facility] THIRD BUT WILL NOT CONSIDER [facility] IN [place]. CHOICE LETTER COMPLETED. CHART REVIEWED, PHYSICAL THERAPY EVALUATION STILL PENDING, NO OCCUPATIONAL THERAPY HAD BEEN ORDERED. CM OBTAINED ORDER FOR OCCUPATIONAL THERAPY EVALUATION. CM TO PROVIDE REFERRAL TO [facility] FOR INPATIENT REHAB CONSIDERATION ONCE PHYSICAL AND OCCUPATIONAL THERAPY EVALUATIONS ARE COMPLETED. Ibrahima Nelson, CASE MANAGEMENT DCP- Discharge Planning Updated by [id number]: Ibrahima Nelson on 02/23/19 3:[address] Patient Name: MANA SAXENA Admission Status: ER Accout number: [id number] Admission Date: 02-22-2019 : 1940 Admission Diagnosis: Attending: CASEY NAIDU Current LOS: 1 Anticipated DC Date: 02-24-2019 Planned Disposition: Home with Home Health Primary Insurance: UNINSURED DISCOUNT PLAN PLANNED EXTERNAL PROVIDER: [facility] Discharge Planning Comments: CM RECEIVED ORDER FOR HOME HEALTH. CM MET WITH PT AND SPOUSE IN ROOM TO DISCUSS DISCHARGE PLANNING AND NEEDS. MANA SAXENA provided verbal consent to discuss current and ongoing needs with/in the presence of: SPOUSE, . ANSWERED ALL QUESTIONS. PT LIVING AT HOME DEPENDENTLY WITH SPOUSE WHO ASSISTS WITH MEDICATIONS. PT HAS BEEN GETTING WEAKER AND NOW NEEDS ASSISTANCE WITH BATHING. PT HAS WALKER WITH WHEELS, SEAT AND BRAKES AND NO MEDICAL EQUIPMENT PROVIDER PREFERENCE. PT HAS HOME HEALTH WITH [facility] FOR NURSING AND PHYSICAL THERAPY. CM DISCUSSED AVAILABILITY OF HOME HEALTH, REHAB SERVICES AND MEDICAL EQUIPMENT. PT'S SPOUSE WANTS [facility] RESUMPTION AND REPORTS NEEDING A WHEELCHAIR PT IS NO LONGER ABLE TO CLIMB THE STEPS TO GET ON THE MEDICAID BUS FOR DIALYSIS TRANSPORTATION. PT GOES TO DIALYSIS IN [place] ON MWF SCHEDULE. PT'S FAMILY TO TRANSPORT HOME AT DISCHARGE. CHOICE SIGNED FOR [facility], CHOICE FOR NO PREFERENCE FOR MEDICAL EQUIPMENT PROVIDER COMPLETED BY [facility]. CM COLLECTED REGISTRATION INFORMATION AND FORWARDED TO [place]NA OF REGISTRATION. CM SPOKE TO BOWEN TEJADA WHO PROVIDED ORDER FOR WHEELCHAIR. CM CALLED [facility] PATIENT, , SPOKE TO AYUSH AND PROVIDED REFERRAL INFORMATION FOR WHEELCHAIR. CM FAXED ORDER AND CHART INFORMATION TO [facility] AT [phone]. [facility] PATIENT TO PROCESS ORDER FOR WHEELCHAIR DELIVERY TO PT IF QUALIFIES; PT'S INSURANCE REQUIRES PRIOR AUTHORIZATION. CM CALLED [facility], , SPOKE TO KURT, PROVIDED REFERRAL INFORMATION, PT IS ON SERVICES WITH [facility] ALREADY.. CM FAXED REFERRAL INFORMATION TO [facility], . FOR DISCHARGE, NOTIFY [facility] AT [phone]; FAX DISCHARGE INFORMATION TO [facility] AT [phone]. Electrical Linesworker: Ibrahima Nelson DCPIA - Discharge Planning Initial Assessment Updated by [id number]: Ibrahima Nelson on 02/23/19 3:52 pm * Is the patient Alert and Oriented? Yes * How many steps to enter\\exit or inside your home? RAMP * PCP DR. VIC PAREDES IN [place] * Pharmacy [facility] IN [place] * Preadmission Environment Home with Family * ADLs Partial Dependent * Partial ADLs (Assistance needed) Bathing Medication Management * Equipment Rolling Walker * Other Equipment ROLLING WALKER WITH SEAT AND BRAKES NO MEDICAL EQUIPMENT PROVIDER PREFERENCE * List name and contact numbers for known caregivers / representatives who currently or will assist patient after discharge: QUEEN ODESSA, SPOUSE, IDRIS SAXENA, NIECE, * Verbal permission to speak to the caregivers and representatives has been obtained from the patient. Yes * Community resources currently utilized Home Health * Please name any agencies selected above. [facility], NURSING AND PHYSICAL THERAPY * Additional services required to return to the preadmission environment? No * Can the patient safely return to the preadmission environment? Yes * Has this patient been hospitalized within the prior 30 days at any hospital? Yes Coverage Notice Reviewer: [id number] - Ibrahima Nelson Notice Issued Date-Time: 03/11/2019 15:50 Notice Type: Patient Choice Letter Notice Delivered To: Family Member Relationship to Patient: Spouse Director Power Name: QUEEN ODESSA Delivery Method: HAND - Hand Delivered Cristina Days: Prior Verbal Notification: Recipient Understood Notice: Yes Recipient Signature: Med Rec Note Co-signed by Attending: Coverage Notice Comment: [facility] OR ANY IN NETWORK NURSING HOME FOR REHAB Reviewer: [id number] Nelson Notice Issued Date-Time: 02/26/2019 12:00 Notice Type: Patient Choice Letter Notice Delivered To: Family Member Relationship to Patient: Spouse Director Power Name: QUEEN ODESSA Delivery Method: PHONE - Phone Cristina Days: Prior Verbal Notification: Recipient Understood Notice: Yes Recipient Signature: Med Rec Note Co-signed by Attending: Coverage Notice Comment: [facility]- [facility] 3-[facility] [place] [place]!! Reviewer: [id number] Nelson Notice Issued Date-Time: 02/23/2019 15:15 Notice Type: Patient Choice Letter Notice Delivered To: Family Member Relationship to Patient: Spouse Director Power Name: QUEEN ODESSA Delivery Method: HAND - Hand Delivered Cristina Days: Prior Verbal Notification: Recipient Understood Notice: Yes Recipient Signature: Yes Med Rec Note Co-signed by Attending: Coverage Notice Comment: ANY MEDICAL EQUIPMENT COMPANY SERVICING [place] // [facility] Last DP export: 03/15/19 11:02 a Patient Name: MANA SAXENA Page [id number] at 1212 All edits/amendments must be made on the electronic document DICTATION DATE: 03/15/19 1211 PHYSICAL LABORATORY ASSISTANT: GRACE 03/15/19 1211 RPT#: [id number] DC DATE: STATUS: ADM IN [facility] [address] [place] [address] END OF REPORT
[2019-03-15 13:10] LABS: FUNGUS STAIN Final report (())
--- NOTE | 2019-03-15 14:58 | MORECARE ---
CASE MANAGEMENT DISCHARGE SUMMARY PATIENT: MANA SAXENA UNIT: [id number] ADM DATE: 02/24/19 AGE: 78 : 38 SEX: M ROOM/BED: D.2105 AUTHOR: BJ,DOC PHYSICIAN: REFERRING PHYSICIAN: CASEY NAIDU MD DATE OF SERVICE: 03/15/19 Discharge Plan Patient Name: MANA SAXENA Facility: [facility]:[place] : 1940 Planned Disposition: Nursing Facility NICHOLE Cert Anticipated Discharge Date: 03/15/19 Discharge Date: Expected LOS: 19 Initial Reviewer: [id number] Initial Review Date: 02/22/2019 Generated: 03/15/19 3:57 pm Comments DCP- Discharge Planning Updated by [id number]: Ibrahima Nelson on 03/15/19 1:[address] Patient Name: MANA SAXENA Encounter No: [id number] : 1940 Primary Insurance: AETNA MEDICARE PPO or HMO Anticipated DC Date: 03-15-2019 Planned Disposition: Nursing Facility NICHOLE Cert External Planned Provider: [facility], LONG TERM CARE MEDICAID BED DCP follow-up note: HODA RECEIVED MESSAGE FROM PUJA MADSEN [facility], PT'S INSURANCE WILL NOT APPROVE REHAB SERVICES PT HAS BEEN REFUSING THERAPY. [facility] WILL ACCEPT FOR ASSISTED CARE IF PT'S FAMILY AGREES AND WILL WORK OUT FINANCIAL ARRANGEMENTS. HODA CALLED AND NOTIFIED QUEEN ODESSA AT [phone] WHO INFORMED CM THAT SHE IS NOT ABLE TO TAKE CARE OF PT AT HOME BY HERSELF AND WILL DISCUSS ASSISTED CARE ARRANGEMENTS WITH [facility]. CM NOTIFIED PUJA MADSEN [facility]. [facility] PRODUCT STRATEGY DIRECTOR CALLING PT'S NOW TO DISCUSS FINANCIAL ARRANGEMENTS FOR ASSISTED CARE PLACEMENT. CM WAITING FAMILY AND [facility] TO WORK OUT FINANCIAL ARRANGEMENTS FOR ASSISTED CARE [facility] PLACEMENT. Ibrahima Nelson, CASE MANAGEMENT Appended by Ibrahima Nelson on 03/15/2019 14:55 CDT: HODA RECEIVED CALL FROM QUEEN ODESSA, , WHO STATED THAT SHE DID NOT KNOW THAT PT HAD TO PARTICIPATE WITH THERAPY FOR INSURANCE TO PAY FOR HIM TO GO TO REHAB. STATES THAT SHE IS COMING TO HOSPITAL THIS AFTERNOON TO SPEAK TO PT AND TELL HIM HE HAS TO PARTIPATE WITH THERAPY SO HE CAN GO TO REHAB AT [facility]. CM EXPLAINED PT IS READY TO DISCHARGE FROM THE [facility], WANG STATES SHE DOES NOT WANT PT IN BOARD CERTIFIED BEHAVIORAL ANALYST CARE AND WILL COME AND TELL PT TO PARTICIPATE IN THERAPY AT [facility] SO HE CAN GO TO REHAB AT [facility]. CM NOTIFIED BOWEN TEJADA. CM WAITING ON PT'S SPOUSE TO SPEAK TO HIM IN THE ROOM REGARDING PARTICIPATING WITH HOSPITAL THERAPY SO INSURANCE WILL PAY FOR SKILLED REHAB; PT'S SPOUSE REFUSING ASSISTED CARE AND INSISTING ON SKILLED NUSING REHAB WHICH REQUIRES PT TO PARTICIPATE IN THERAPY SERVICES. CM TO CONTINUE TO FOLLOW AND ASSIST. FATOUMATA BHATT MANAGEMENT DCP- Discharge Planning Updated by [id number]: Ibrahima Nelson on 03/15/19 6:[address] Patient Name: MANA SAXENA Encounter No: [id number] : 1940 Primary Insurance: AETNA MEDICARE PPO or HMO Anticipated DC Date: 02-24-2019 Planned Disposition: Fdc Facility External Planned Provider:[facility], MEDICARE REHAB BED DCP follow-up note: CM NOTIFIED [facility] THAT PT MAY DISCHARGE TO REHAB TODAY. CM FAXED UPDATE WITH THERAPY NOTES TO [facility] [place] AT [phone]. CM WAITING ADMISSION DETERMINATION AND INSURANCE AUTHORIZATION FOR REHAB AT [facility]. FATOUMATA Bhatt DCP- Discharge Planning Updated by [id number]: Ibrahima Nelson on 03/12/19 3:[address] Patient Name: MANA SAXENA Encounter No: [id number] : 1940 Primary Insurance: AETNA MEDICARE PPO or HMO Anticipated DC Date: 02-24-2019 Planned Disposition: Fdc Facility External Planned Provider: [facility], MEDICARE REHAB BED DCP follow-up note: CM RECEIVED CALL FROM [facility]; REFERRAL WAS RECEIVED, PT'S INSURANCE WILL PAY OUT OF NETWORK BENEFITS JUST THE SAME IN NETWORK TO [facility]. PT WILL NEED THERAPY NOTES WITH PATIENT PARTICIPATION TO GET INSURANCE AUTHORIZATION FOR REHAB. PT NEEDS THERAPY NOTES DOCUMENTING PATIENT PARTICIPATION FOR INSURANCE TO AUTHORIZE . CM WAITING ADMISSION DETERMINATION AND INSURANCE AUTHORIZATION FOR REHAB AT [facility]. Ibrahima Nelson CASE MANAGEMENT DCP- Discharge Planning Updated by [id number]: Ibrahima Nelson on 03/11/19 1:[address] Patient Name: MANA SAXENA Encounter No: [id number] : 1940 Primary Insurance: AETNA MEDICARE PPO or HMO Anticipated DC Date: 02-24-2019 Planned Disposition: Fdc Facility External Planned Provider: [facility], MEDICARE REHAB BED DCP follow-up note: CM RECEIVED CALL FROM [facility], THEY ARE OUT OF INSURANCE NETWORK AND CANNOT ACCEPT PT. CM SPOKE TO PT AND SPOUSE IN ROOM. REPORTS IT IS OK TO SEND REFERRAL TO [facility] AND IF THEY DON'T ACCEPT, ANY IN NETWORK FACILITY WILL HAVE TO DO, JUST NOT [place]. CHOICE LETTER COMPLETED. QUEEN ODESSA PROVIDED INSURANCE CUSTOMER SERVICES NUMBER OF AND WEBSITE ADDRESS "[email or web address]" FOR CM USE IF NEEDED. CM NOTIFIED PUJA OF [facility] OF REHAB REFERRAL, . CM FAXED REFERRAL TO [facility] [place] AT [phone]. CM WAITING ADMISSION DETERMINATION AND INSURANCE AUTHORIZATION FOR REHAB AT [facility]. Ibrahima Nelson, CASE MANAGEMENT DCP- Discharge Planning Updated by [id number]: Ibrahima Nelson on 03/10/19 2:[address] Patient Name: MANA SAXENA Encounter No: [id number] : 8 Primary Insurance: AETNA MEDICARE PPO or HMO Anticipated DC Date: 02-24-2019 Planned Disposition: Fdc Facility External Planned Provider:[facility], MEDICARE REHAB BED DCP follow-up note: CM FAXED UDPATE WITH [facility] AT [phone]. [facility] IS TRYING TO GET APPROVAL FOR OUT OF NETWORK SKILLED REHAB BENEFITS. CM WAITING ADMISSION DETERMINATION FROM [facility] FOR [facility]. PT WILL NEED TO HAVE INSURANCE AUTHORIZATION FOR REHAB SERVICES. IBRAHIMA NELSON, CASE MANAGEMENT Appended by Ibrahima Nelson on 03/10/2019 15:03 CDT: CM RECEIVED CALL FROM [facility] OF [facility], , WHO INFORMED CM THAT THEY ARE STILL TRYING TO CONNECT WITH PT'S INSURANCE COMPANY TO REQUEST AUTHORIZATION OF SERVICES. CM PROVIDED PT'S SOCIAL SECURITY NUMBER AND FAXED UDPATE TO [facility] AT [facility] AT [phone]. [facility] IS TRYING TO GET APPROVAL FOR OUT OF NETWORK SKILLED REHAB BENEFITS. CM WAITING ADMISSION DETERMINATION FROM [facility], [facility] FOR REH[facility]. PT WILL NEED TO HAVE INSURANCE AUTHORIZATION FOR REHAB SERVICES. IBRAHIMA NELSON CASE MANAGEMENT DCP- Discharge Planning Updated by [id number]: Ibrahima Nelson on 03/09/19 10:[address] Patient Name: MANA SAXENA Encounter No: [id number] : 1940 Primary Insurance: AETNA MEDICARE PPO or HMO Anticipated DC Date: 02-24-2019 Planned Disposition: Fdc Facility External Planned Provider:[facility], MEDICARE REHAB BED DCP follow-up note: CM REVIEWED CHART, OBTAINED ORDER FOR OCCUPATIONAL THERAPY EVALUATION. CM FAXED UPDATED REFERRAL TO [facility], . CM RECEIVED CALL FROM [facility] OF [facility], , [facility] IS NOT IN NETWORK WITH PT'S INSURANCE AND THEY HAVE SUBMITTED TO INSURANCE TO SEE IF INSURANCE WILL COVER REHAB AT [facility]. CM WAITING ADMISSION DETERMINATION FROM [facility] FOR REHAB. PT WILL NEED TO HAVE INSURANCE AUTHORIZATION FOR REHAB SERVICES. IBRAHIMA NELSON CASE MANAGEMENT DCP- Discharge Planning Updated by [id number]: Ibrahima Nelson on 03/03/19 9:[address] Patient Name: MANA SAXENA Encounter No: [id number] : [birth year] Primary Insurance: AETNA MEDICARE PPO or HMO Anticipated DC Date: 02-24-2019 Planned Disposition: Fdc Facility External Planned Provider: [facility], MEDICARE REHAB BED DCP follow-up note: CM RECEIVED CALL FROM [facility] INPATIENT REH[facility], UPDATE PROVIDED VIA PHONE; DOUGLAS CANCELLED REFERRAL AND INSTRUCTED CM TO SEND REFERRAL WHEN PT IS BETTER AND IF PT STILL NEEDS INPATIENT REHAB SERVICES. CM WAITING ADMISSION DETERMINATION FROM [facility], [facility] FOR REHAB OR BOARD CERTIFIED BEHAVIORAL ANALYST CARE. PT WILL NEED TO HAVE INSURANCE AUTHORIZATION WHEN OCCUPATIONAL THERAPY EVALUATION HAS BEEN COMPLETED AND RECEIVED BY GROUP HOME FACILITY. IBRAHIMA NELSON CASE MANAGEMENT DCP- Discharge Planning Updated by [id number]: Ibrahima Nelson on 03/02/19 10:[address] Patient Name: MANA SAXENA Encounter No: [id number] : 1940 Primary Insurance: AETNA MEDICARE PPO or HMO Anticipated DC Date: 02-24-2019 Planned Disposition: Inpatient Rehab External Planned Provider: [facility] INPATIENT REHAB DCP follow-up note: CM RECEIVED CALL FROM IAN OF [facility], THEY HAVE ACCEPTED MEDICALLY AND WILL SUBMIT TO INSURANCE FOR AUTHORIZATION FOR INPATIENT REHAB SERVICES. CM ADVISED THAT PT HAD MOVED TO ICU THIS MORNING AND THAT PT HAS BEEN REFUSING THERAPY SERVICES AND FURTHER THAT OCCUPATIONAL THERAPY EVALUATION HAS NOT YET BEEN COMPLETED. IAN WILL FOLLOW UP WITH CALL TO PT'S TO DISCUSS COMPLIANCE WITH THERAPY SERVICES TO SEE IF THE SPOUSE CAN SPEAK TO PT. CM WAITING RETURN CALL FROM PT'S SPOUSE, QUEEN ODESSA. [facility] WILL SUBMIT TO PT'S INSURANCE COMPANY FOR INPATIENT REHAB AUTHORIZATION WHEN OCCUPATIONAL THERAPY EVALUATION HAS BEEN COMPLETED AND RECEIVED. CM WAITING ADMISSION DETERMINATION FROM [facility] OR REHAB OR ASSISTED CARE. PT WILL NEED TO HAVE INSURANCE AUTHORIZATION WHEN OCCUPATIONAL THERAPY EVALUATION HAS BEEN COMPLETED AND RECEIVED BY GROUP HOME FACILITY. IBRAHIMA NELSON, CASE MANAGEMENT DCP- Discharge Planning Updated by [id number]: Ibrahima Nelson on 03/01/19 3:[address] Patient Name: MANA SAXENA Encounter No: [id number] : 1940 Primary Insurance: AETNA MEDICARE PPO or HMO Anticipated DC Date: 02-24-2019 Planned Disposition: Inpatient Rehab External Planned Provider: [facility] REHAB DCP follow-up note: CM REVIEWED CHART, OCCUPATIONAL THERAPY EVALUATION HAS STILL NOT BEEN COMPLETED / DOCUMENTED. CM FAXED BASIC REFERRAL TO [facility] FOR INPATIENT REHAB CONSIDERATION AT [phone]. CM TO FAX UPDATE WITH OCCUPATIONAL THERAPY EVALUATION WHEN IT IS COMPLETED AND DOCUMENTED. Ibrahima Nelson, CASE MANAGEMENT Appended by Ibrahima Nelson on 03/01/2019 16:14 CDT: HODA REVIEWED CHART, PT REFUSED PHYSICAL THERAPY TODAY AND THERAPY HAS SIGNED OFF DUE TO PT REFUSAL. OCCUPATIONAL THERAPY EVALUATION STILL NOT COMPLETED. IT IS CM'S EXPERIENCE THAT INSURANCE WILL NOT PAY FOR REHAB SERVICES UNLESS PT IS PARTICIPATING, WHICH THIS PT IS NOT. CM SPOKE TO PT IN ROOM WHO REPORTS HE DID NOT UNDERSTAND; PT STATES HE IS GOING HOME. WHEN CM EXPLAINED IN SLOW DETAIL THAT PT'S SPOUSE WANTS HIM TO GO TO REHAB, PT YELLS AT THAT SOMETHING MUST BE WRONG AND TO CALL . CM CALLED QUEEN ODESSA, SPOUSE, , LEFT MESSAGE ASKING FOR RETURN CALL. CM FAXED REFERRAL TO [facility] IN HOPES THAT THEY CAN GET AUTHORIZATION FOR REHAB WITH PT'S REFUSAL TO DO THERAPY OR AT LEAST CONSIDER FOR ASSISTED CARE. CM WAITING RETURN CALL FROM PT'S SPOUSE, QUEEN ODESSA. CM WAITING ADMISSION DETERMINATION FROM [facility] OR REHAB OR BOARD CERTIFIED BEHAVIORAL ANALYST CARE. IBRAHIMA NELSON CASE MANAGEMENT DCP- Discharge Planning Updated by [id number]: Ibrahima Nelson on 02/26/19 12:[address] Patient Name: MANA SAXENA Encounter No: [id number] : 1940 Primary Insurance: AETNA MEDICARE PPO or HMO Anticipated DC Date: 02-24-2019 Planned Disposition: Inpatient Rehab External Planned Provider: [facility] INPATIENT REHAB DCP follow-up note: CM RECEIVED CALL FROM AYUSH OF [facility] PATIENT; SHE HAD CALLED PT'S SPOUSE TO ARRANGE DELIVERY OF MANUAL WHEELCHAIR AND SPOUSE REFUSED IT STATING THAT SHE CANNOT PHYSICALLY PUSH PT IN A WHEELCHAIR AND REQEUSTED A POWER CHAIR. CM ATTEMPTED TO SEE PT'S SPOUSE IN ROOM, SHE WAS NOT THERE. CM CALLED QUEEN ODESSA, . CM INFORMED THAT AN ELECTRIC WHEELCHAIR REQUIRES VERY DETAILED AND LENGHTY DOCUMENTATION THAT CANNOT BE DONE FROM HOSPITAL, REFERRED HER TO PT'S PRIMARY CARE DOCTOR. CM DISCUSSED AVAILABILITY OF REHAB SERVICES, PROVIDERS AND LOCATIONS. REPORTS SHE IS OLDER THAN PT AND IS HAVING TROUBLE CARING FOR PT IN HIS WEAKENED STATE AND WOULD LIKE REHAB AT [facility] FIRST CHOICE AND [facility] SECOND, [facility] THIRD BUT WILL NOT CONSIDER [facility] IN [place]. CHOICE LETTER COMPLETED. CHART REVIEWED, PHYSICAL THERAPY EVALUATION STILL PENDING, NO OCCUPATIONAL THERAPY HAD BEEN ORDERED. CM OBTAINED ORDER FOR OCCUPATIONAL THERAPY EVALUATION. CM TO PROVIDE REFERRAL TO [facility] FOR INPATIENT REHAB CONSIDERATION ONCE PHYSICAL AND OCCUPATIONAL THERAPY EVALUATIONS ARE COMPLETED. Ibrahima Nelson CASE MANAGEMENT DCP- Discharge Planning Updated by [id number]: Ibrahima Nelson on 02/23/19 3:[address] Patient Name: MANA SAXENA Admission Status: ER Accout number: [id number] Admission Date: 02-22-2019 : 1940 Admission Diagnosis: Attending: CASEY NAIDU Current LOS: 1 Anticipated DC Date: 02-24-2019 Planned Disposition: Home with Home Health Primary Insurance: UNINSURED DISCOUNT PLAN PLANNED EXTERNAL PROVIDER: [facility] Discharge Planning Comments: CM RECEIVED ORDER FOR HOME HEALTH. CM MET WITH PT AND SPOUSE IN ROOM TO DISCUSS DISCHARGE PLANNING AND NEEDS. MANA SAXENA provided verbal consent to discuss current and ongoing needs with/in the presence of: SPOUSE, . ANSWERED ALL QUESTIONS. PT LIVING AT HOME DEPENDENTLY WITH SPOUSE WHO ASSISTS WITH MEDICATIONS. PT HAS BEEN GETTING WEAKER AND NOW NEEDS ASSISTANCE WITH BATHING. PT HAS WALKER WITH WHEELS, SEAT AND BRAKES AND NO MEDICAL EQUIPMENT PROVIDER PREFERENCE. PT HAS HOME HEALTH WITH [facility] FOR NURSING AND PHYSICAL THERAPY. CM DISCUSSED AVAILABILITY OF HOME HEALTH, REHAB SERVICES AND MEDICAL EQUIPMENT. PT'S SPOUSE WANTS [facility] RESUMPTION AND REPORTS NEEDING A WHEELCHAIR PT IS NO LONGER ABLE TO CLIMB THE STEPS TO GET ON THE MEDICAID BUS FOR DIALYSIS TRANSPORTATION. PT GOES TO DIALYSIS IN [place] ON MWF SCHEDULE. PT'S FAMILY TO TRANSPORT HOME AT DISCHARGE. CHOICE SIGNED FOR [facility], CHOICE FOR NO PREFERENCE FOR MEDICAL EQUIPMENT PROVIDER COMPLETED BY CM. CM COLLECTED REGISTRATION INFORMATION AND FORWARDED TO [place] OF REGISTRATION. CM SPOKE TO BOWEN TEJADA WHO PROVIDED ORDER FOR WHEELCHAIR. CM CALLED [facility] PATIENT, , SPOKE TO AYUSH AND PROVIDED REFERRAL INFORMATION FOR WHEELCHAIR. CM FAXED ORDER AND CHART INFORMATION TO [facility] PATIENT AT [phone]. [facility] PATIENT TO PROCESS ORDER FOR WHEELCHAIR DELIVERY TO PT IF QUALIFIES; PT'S INSURANCE REQUIRES PRIOR AUTHORIZATION. CM CALLED [facility], , SPOKE TO KURT, PROVIDED REFERRAL INFORMATION, PT IS ON SERVICES WITH [facility] ALREADY.. CM FAXED REFERRAL INFORMATION TO [facility], . FOR DISCHARGE, NOTIFY [facility] AT [phone]; FAX DISCHARGE INFORMATION TO [facility] AT [phone]. Centrifugal Machine Tender: Ibrahima Nelson DCPIA - Discharge Planning Initial Assessment Updated by [id number]: Ibrahima Nelson on 02/23/19 3:52 pm * Is the patient Alert and Oriented? Yes * How many steps to enter\\exit or inside your home? RAMP * PCP DR. VIC PAREDES IN [place] * Pharmacy [facility] IN [place] * Preadmission Environment Home with Family * ADLs Partial Dependent * Partial ADLs (Assistance needed) Bathing Medication Management * Equipment Rolling Walker * Other Equipment ROLLING WALKER WITH SEAT AND BRAKES NO MEDICAL EQUIPMENT PROVIDER PREFERENCE * List name and contact numbers for known caregivers / representatives who currently or will assist patient after discharge: QUEEN ODESSA SPOUSE, CADEN ANDERSON, * Verbal permission to speak to the caregivers and representatives has been obtained from the patient. Yes * Community resources currently utilized Home Health * Please name any agencies selected above. [facility], NURSING AND PHYSICAL THERAPY * Additional services required to return to the preadmission environment? No * Can the patient safely return to the preadmission environment? Yes * Has this patient been hospitalized within the prior 30 days at any hospital? Yes Coverage Notice Reviewer: [id number] Nelson Notice Issued Date-Time: 02/23/2019 15:15 Notice Type: Patient Choice Letter Notice Delivered To: Family Member Relationship to Patient: Spouse [employer] Clerk Name: QUEEN ODESSA Delivery Method: HAND - Hand Delivered Cristina Days: Prior Verbal Notification: Recipient Understood Notice: Yes Recipient Signature: Yes Med Rec Note Co-signed by Attending: Coverage Notice Comment: ANY MEDICAL EQUIPMENT COMPANY SERVICING [place] // [facility] Reviewer: [id number] Nelson Notice Issued Date-Time: 02/26/2019 12:00 Notice Type: Patient Choice Letter Notice Delivered To: Family Member Relationship to Patient: Spouse [employer] Clerk Name: QUEEN ODESSA Delivery Method: PHONE - Phone Cristina Days: Prior Verbal Notification: Recipient Understood Notice: Yes Recipient Signature: Med Rec Note Co-signed by Attending: Coverage Notice Comment: 1-[facility] 2- [facility] 3-[facility] NOT [facility]!! Reviewer: [id number] Edilia Nelson Notice Issued Date-Time: 03/11/2019 15:50 Notice Type: Patient Choice Letter Notice Delivered To: Family Member Relationship to Patient: Spouse [employer] Clerk Name: QUEEN ODESSA Delivery Method: HAND - Hand Delivered Cristina Days: Prior Verbal Notification: Recipient Understood Notice: Yes Recipient Signature: Med Rec Note Co-signed by Attending: Coverage Notice Comment: [facility] OR ANY IN NETWORK [facility] FOR REHAB Last DP export: 03/15/19 11:12 a Patient Name: MANA SAXENA Page [id number] at 1458 All edits/amendments must be made on the electronic document DICTATION DATE: 03/15/191456 COMPLIANCE FIELD TECHNICIAN: GRACE 03/15/191456 RPT#: [id number] DC DATE: STATUS: ADM IN [facility] [address] [place] [address] END OF REPORT
[2019-03-15 15:56] VITALS: BP 114/53
--- NOTE | 2019-03-15 16:31 | NUR ---
BLOOD SUGAR OF 147, NO COVERAGE NEEDED PER S/S. PT IN BED, DENIES ANY NEEDS AT THIS TIME. CALL LIGHT IN REACH, NAD NOTED.
[2019-03-15 20:00] VITALS: BP 117/54
--- NOTE | 2019-03-15 20:00 | NUR ---
ROUNDS COMPLETED. VSS, AAOX2. PT LAC COURTE OREILLES. NO S/S OF RESPIRATORY DISTRESS. DENIES ANY FURTHER NEEDS AT THIS TIME. WILL CPOC.
[2019-03-16] VITALS: BP 114/59
--- NOTE | 2019-03-16 00:44 | NUR ---
PT UP IN BED. STATES "I CAN'T SEEM TO GET ANY SLEEP TONIGHT." FSBS 218. 4UNITS OF HUMULIN GIVEN. WILL CPOC.
[2019-03-16 04:00] VITALS: BP 126/61
--- NOTE | 2019-03-16 04:48 | NUR ---
PT FSBS 56. PT AWAKE, ALERT AND ASYMPTOMATIC. 2 CANS OF APPLE JUICE WITH A PACK OF CANE SUGAR GIVEN @THIS TIME. WILL CTM.
--- NOTE | 2019-03-16 05:23 | NUR ---
I have reviewed this patient and I concur with the Shift Assessment completed by the Licensed Practical Nurse today this shift.
[2019-03-16 06:23] LABS: ALBUMIN 2.5 g/dL (3.4-5.0); ANION GAP 12.1 mmol/L (8-16); BILIRUBIN - TOTAL 0.68 mg/dL (0.2-1.3); CALCIUM 8.3 mg/dL (8.5-10.1); CARBON DIOXIDE 27.5 mmol/L (21.0-32.0); POTASSIUM - SERUM 3.6 mmol/L (3.5-5.1); PROTEIN - SERUM 6.1 g/dL (6.4-8.2)
--- NOTE | 2019-03-16 06:28 | NUR ---
REASSESSED FSBS, STILL 49. 25ML OF IV DEXTROSE 50% GIVEN AT THIS TIME. PT APPEARS ASYMPTOMATIC. WILL CTM.
[2019-03-16 06:39] LABS: CREATININE - SERUM 4.5 mg/dL (0.6-1.3)
[2019-03-16 06:54] LABS: BASOPHILS 0.2 % (0-2); EOSINOPHILS 0.8 % (0-7); HEMATOCRIT 27.1 % (42.0-54.0); HEMOGLOBIN 8.7 g/dL (13.5-17.5); LYMPHOCYTES 13.7 % (15-50); MCH 29.7 pg (26.0-34.0); MCHC 32.1 g/dL (31.0-37.0); MCV 92.5 fL (80.0-100.0); MEAN PLATELET VOLUME 11.6 fL (7.4-10.4); MONOCYTES 12.4 % (2-11); NEUTROPHILS 72.9 % (40-80); PLATELET COUNT 151 10x3/uL (130-400); RBC 2.93 10x6/uL (4.20-6.10); RDW 19.8 % (11.5-14.5); WBC 5.2 10x3/uL (4.8-10.8)
[2019-03-16 08:01] VITALS: BP 103/70
--- NOTE | 2019-03-16 08:21 | NUR ---
AM MEDS GIVEN AT THIS TIME. PT HAD NO TROUBLE SWALLOWING PILLS, PT A/O X4, REALLY [place]. RESP EVEN AND NONLABORED ON RA. RT GROIN CVL CDI WITH BIOPATCH IN PLACE. PULLED PT UP IN BED AND SET HIM UP FOR BREAKFAST. BLOOD SUGAR OF 64, NO COVERAGE NEEDED PER S/S. WILL GIVE PT A SNACK. PT DENIES ANY NEEDS AT THIS TIME. CALL LIGHT IN REACH, NAD NOTED, WILL CONTINUE PLAN OF CARE.
--- NOTE | 2019-03-16 09:41 | NUR ---
PT UP TO CHAIR, DENIES ANY NEEDS AT THIS TIME. CALL LIGHT IN REACH, NAD NOTED, WILL CONTINUE TO MONITOR.
--- NOTE | 2019-03-16 11:43 | NUR ---
BLOOD SUGAR OF 97, NO COVERAGE NEEDED PER S/S. PT IN BED, RESTING COMFORTABLY IN BED, DENIES ANY NEEDS AT THIS TIME. CALL LIGHT IN REACH, AT BEDSIDE, NAD NOTED, WILL CONTINUE TO MONITOR.
[2019-03-16 12:16] VITALS: BP 116/54
[2019-03-16 16:08] VITALS: BP 112/62
--- NOTE | 2019-03-16 16:21 | NUR ---
PT'S FAMILY STATING THAT PT HAS BEEN C/O PAIN EVER SINCE HE HAS BEEN HERE, AND NO ONE HAS GIVEN HIM ANYTHING FOR PAIN. INFORMED FAMILY THAT NOT ONCE DID PT C/O TO THIS NURSE. PT STATED WELL EVERY TIME I ASK FOR SOMETHIGN FOR PAIN, I AM TOLD THAT I HAVE NOTHING BECAUSE THE DOCTOR HAS NOT ORERED PAIN MEDICATION. TOLD PT THAT NOT ONCE HAS HE ASKED ME, THAT I COULD CALL DOCTOR AND SEE IF I CAN GET AN ORDER FOR PAIN.CALLED DELMA DIEGO, NEW ORDER FOR TRAMADOL [id number].
--- NOTE | 2019-03-16 16:41 | MORECARE ---
CASE MANAGEMENT DISCHARGE SUMMARY PATIENT: MANA SAXENA UNIT: [id number] ADM DATE: 02/24/19 AGE: 78 : 38 SEX: M ROOM/BED: D.2109 AUTHOR: BJ,DOC PHYSICIAN: REFERRING PHYSICIAN: CASEY NAIDU MD DATE OF SERVICE: 03/16/19 Discharge Plan Patient Name: MANA SAXENA Facility: [facility]:[place] : 1940 Planned Disposition: Nursing Facility [facility] Cert Anticipated Discharge Date: 03/15/19 Discharge Date: Expected LOS: 19 Initial Reviewer: [id number] Initial Review Date: 02/22/2019 Generated: 03/16/19 5:41 pm Comments DCP- Discharge Planning Updated by [id number]: Ibrahima Nelson on 03/16/19 3:[address] Patient Name: MANA SAXENA Encounter No: [id number] : 1940 Primary Insurance: AETNA MEDICARE PPO or HMO Anticipated DC Date: 03-15-2019 Planned Disposition: Nursing Facility [facility] Cert External Planned Provider: [facility], LONG TERM CARE MEDICAID BED DCP follow-up note: CM FAXED UPDATE TO [facility], . PT'S SPOUSE REFUSING [facility] AND INSISTING ON SKILLED NUSING REHAB WHICH REQUIRES PT TO PARTICIPATE IN THERAPY SERVICES. CM TO SEND THERAPY UPDATE TOMORROW, HOPEFULLY WILL HAVE ENOUGH PARTICIPATION TO SECURE REHAB PLACEMENT AT [facility]. FATOUMATA BHATT DCP- Discharge Planning Updated by [id number]: Ibrahima Nelson on 03/15/19 1:[address] Patient Name: MANA SAXENA Encounter No: [id number] : 1940 Primary Insurance: AETNA MEDICARE PPO or HMO Anticipated DC Date: 03-15-2019 Planned Disposition: Nursing Facility [facility] Cert External Planned Provider: [facility], LONG TERM CARE MEDICAID BED DCP follow-up note: CM RECEIVED MESSAGE FROM [facility], PT'S INSURANCE WILL NOT APPROVE REHAB SERVICES PT HAS BEEN REFUSING THERAPY. [facility] WILL ACCEPT FOR [facility]ARE IF PT'S FAMILY AGREES AND WILL WORK OUT FINANCIAL ARRANGEMENTS. CM CALLED AND NOTIFIED QUEEN ODESSA AT [phone] WHO INFORMED CM THAT SHE IS NOT ABLE TO TAKE CARE OF PT AT HOME BY HERSELF AND WILL DISCUSS HALFWAY CARE ARRANGEMENTS WITH [facility]. CM NOTIFIED PUJA OF [facility]. [facility] [employer]ER CALLING PT'S NOW TO DISCUSS FINANCIAL ARRANGEMENTS FOR HALFWAY CARE PLACEMENT. CM WAITING FAMILY AND PRISON TO WORK OUT FINANCIAL ARRANGEMENTS FOR HALFWAY CARE PRISON PLACEMENT. Ibrahima Nelson, CASE MANAGEMENT Appended by Ibrahima Nelson on 03/15/2019 14:55 CDT: CM RECEIVED CALL FROM QUEEN ODESSA, , WHO STATED THAT SHE DID NOT KNOW THAT PT HAD TO PARTICIPATE WITH THERAPY FOR INSURANCE TO PAY FOR HIM TO GO TO REHAB. STATES THAT SHE IS COMING TO HOSPITAL THIS AFTERNOON TO SPEAK TO PT AND TELL HIM HE HAS TO PARTIPATE WITH THERAPY SO HE CAN GO TO REHAB AT [facility]. HODA EXPLAINED PT IS READY TO DISCHARGE FROM THE HOSPTIAL, STATES SHE DOES NOT WANT PT IN [facility] CARE AND WILL COME AND TELL PT TO PARTICIPATE IN THERAPY AT [facility] SO HE CAN GO TO REHAB AT [facility]. CM NOTIFIED BOWEN TEJADA. CM WAITING ON PT'S SPOUSE TO SPEAK TO HIM IN THE ROOM REGARDING PARTICIPATING WITH HOSPITAL THERAPY SO INSURANCE WILL PAY FOR SKILLED REHAB; PT'S SPOUSE REFUSING [facility] CARE AND INSISTING ON SKILLED NUSING REHAB WHICH REQUIRES PT TO PARTICIPATE IN THERAPY SERVICES. CM TO CONTINUE TO FOLLOW AND ASSIST. IBRAHIMA NELSONCASE MANAGEMENT DCP- Discharge Planning Updated by [id number]: Ibrahima Nelson on 03/15/19 6:[address] Patient Name: MANA SAXENA Encounter No: [id number] : 1940 Primary Insurance: AETNA MEDICARE PPO or HMO Anticipated DC Date: 02-24-2019 Planned Disposition: Custodial Facility External Planned Provider:[facility], MEDICARE REHAB BED DCP follow-up note: HODA NOTIFIED PUJA OF [facility] THAT PT MAY DISCHARGE TO REHAB TODAY. CM FAXED UPDATE WITH THERAPY NOTES TO [facility] VIA PUJA AT [phone]. CM WAITING ADMISSION DETERMINATION AND INSURANCE AUTHORIZATION FOR REHAB AT [facility] IN [place]. FATOUMATA Bhatt DCP- Discharge Planning Updated by [id number]: Ibrahima Nelson on 03/12/19 3:[address] Patient Name: MANA SAXENA Encounter No: [id number] : 1940 Primary Insurance: AETNA MEDICARE PPO or HMO Anticipated DC Date: 02-24-2019 Planned Disposition: Custodial Facility External Planned Provider: [facility], MEDICARE REHAB BED DCP follow-up note: CM RECEIVED CALL FROM [facility]; REFERRAL WAS RECEIVED, PT'S INSURANCE WILL PAY OUT OF NETWORK BENEFITS JUST THE SAME IN NETWORK TO [facility]. PT WILL NEED THERAPY NOTES WITH PATIENT PARTICIPATION TO GET INSURANCE AUTHORIZATION FOR REHAB. PT NEEDS THERAPY NOTES DOCUMENTING PATIENT PARTICIPATION FOR INSURANCE TO AUTHORIZE . CM WAITING ADMISSION DETERMINATION AND INSURANCE AUTHORIZATION FOR REHAB AT [facility]. FATOUMATA Bhatt MANAGEMENT DCP- Discharge Planning Updated by [id number]: Ibrahima Nelson on 03/11/19 1:[address] Patient Name: MANA SAXENA Encounter No: [id number] : 1940 Primary Insurance: AETNA MEDICARE PPO or HMO Anticipated DC Date: 02-24-2019 Planned Disposition: Custodial Facility External Planned Provider: [facility], MEDICARE REHAB BED DCP follow-up note: CM RECEIVED CALL FROM [facility], THEY ARE OUT OF INSURANCE NETWORK AND CANNOT ACCEPT PT. CM SPOKE TO PT AND SPOUSE IN ROOM. WANG REPORTS IT IS OK TO SEND REFERRAL TO [facility] AND IF THEY DON'T ACCEPT, ANY IN NETWORK FACILITY WILL HAVE TO DO, JUST NOT [facility]. CHOICE LETTER COMPLETED. QUEEN ODESSA PROVIDED INSURANCE CUSTOMER SERVICES NUMBER OF AND WEBSITE ADDRESS "[email or web address]" FOR CM USE IF NEEDED. CM NOTIFIED [facility] OF REHAB REFERRAL, . CM FAXED REFERRAL TO [facility] VIA PUJA AT [phone]. CM WAITING ADMISSION DETERMINATION AND INSURANCE AUTHORIZATION FOR REHAB AT [facility]. Ibrahima Nelson CASE MANAGEMENT DCP- Discharge Planning Updated by [id number]: Ibrahima Nelson on 03/10/19 2:[address] Patient Name: MANA SAXENA Encounter No: [id number] : 1940 Primary Insurance: AETNA MEDICARE PPO or HMO Anticipated DC Date: 02-24-2019 Planned Disposition: Custodial Facility External Planned Provider:[facility], MEDICARE REHAB BED DCP follow-up note: CM FAXED UDPATE WITH OT EVALUATION TO UBALDO AT [facility] AT [phone]. [facility] IS TRYING TO GET APPROVAL FOR OUT OF NETWORK SKILLED REHAB BENEFITS. CM WAITING ADMISSION DETERMINATION FROM [facility] FOR [facility]. PT WILL NEED TO HAVE INSURANCE AUTHORIZATION FOR REHAB SERVICES. IBRAHIMA NELSON, CASE MANAGEMENT Appended by Ibrahima Nelson on 03/10/2019 15:03 CDT: CM RECEIVED CALL FROM UBALDO OF [facility], , WHO INFORMED CM THAT THEY ARE STILL TRYING TO CONNECT WITH PT'S INSURANCE COMPANY TO REQUEST AUTHORIZATION OF SERVICES. CM PROVIDED PT'S SOCIAL SECURITY NUMBER AND FAXED UDPATE TO UBALDO AT [facility] AT [phone]. [facility] IS TRYING TO GET APPROVAL FOR OUT OF NETWORK SKILLED REHAB BENEFITS. CM WAITING ADMISSION DETERMINATION FROM [facility] FOR REHAB. PT WILL NEED TO HAVE INSURANCE AUTHORIZATION FOR REHAB SERVICES. FATOUMATA BHATT DCP- Discharge Planning Updated by [id number]: Ibrahima Nelson on 03/09/19 10:[address] Patient Name: MANA SAXENA Encounter No: [id number] : 1940 Primary Insurance: AETNA MEDICARE PPO or HMO Anticipated DC Date: 02-24-2019 Planned Disposition: Custodial Facility External Planned Provider:[facility], MEDICARE REHAB BED DCP follow-up note: CM REVIEWED CHART, OBTAINED ORDER FOR OCCUPATIONAL THERAPY EVALUATION. CM FAXED UPDATED REFERRAL TO [facility], . CM RECEIVED CALL FROM UBALDO OF [facility], , [facility] IS NOT IN NETWORK WITH PT'S INSURANCE AND THEY HAVE SUBMITTED TO INSURANCE TO SEE IF INSURANCE WILL COVER REHAB AT [facility]. CM WAITING ADMISSION DETERMINATION FROM [facility] FOR REHAB. PT WILL NEED TO HAVE INSURANCE AUTHORIZATION FOR REHAB SERVICES. FATOUMATA BHATT DCP- Discharge Planning Updated by [id number]: Ibrahima Nelson on 03/03/19 9:[address] Patient Name: MANA SAXENA Encounter No: [id number] : 1940 Primary Insurance: AETNA MEDICARE PPO or HMO Anticipated DC Date: 02-24-2019 Planned Disposition: Custodial Facility External Planned Provider: [facility], MEDICARE REHAB BED DCP follow-up note: CM RECEIVED CALL FROM PREETHI OF [facility], UPDATE PROVIDED VIA PHONE; [facility] CANCELLED REFERRAL AND INSTRUCTED CM TO SEND REFERRAL WHEN PT IS BETTER AND IF PT STILL NEEDS INPATIENT REHAB SERVICES. CM WAITING ADMISSION DETERMINATION FROM [facility] FOR REHAB OR [facility]. PT WILL NEED TO HAVE INSURANCE AUTHORIZATION WHEN OCCUPATIONAL THERAPY EVALUATION HAS BEEN COMPLETED AND RECEIVED BY [facility]. IBRAHIMA NELSON CASE MANAGEMENT DCP- Discharge Planning Updated by [id number]: Ibrahima Nelson on 03/02/19 10:[address] Patient Name: MANA SAXENA Encounter No: [id number] : 1940 Primary Insurance: AETNA MEDICARE PPO or HMO Anticipated DC Date: 02-24-2019 Planned Disposition: Inpatient Rehab External [facility] D[facility] follow-up note: CM RECEIVED CALL FROM IAN OF [facility], THEY HAVE ACCEPTED MEDICALLY AND WILL SUBMIT TO INSURANCE FOR AUTHORIZATION FOR INPATIENT REHAB SERVICES. CM ADVISED THAT PT HAD MOVED TO ICU THIS MORNING AND THAT PT HAS BEEN REFUSING THERAPY SERVICES AND FURTHER THAT OCCUPATIONAL THERAPY EVALUATION HAS NOT YET BEEN COMPLETED. IAN WILL FOLLOW UP WITH CALL TO PT'S TO DISCUSS COMPLIANCE WITH THERAPY SERVICES TO SEE IF THE SPOUSE CAN SPEAK TO PT. CM WAITING RETURN CALL FROM PT'S SPOUSE, QUEEN ODESSA. [facility] WILL SUBMIT TO PT'S INSURANCE COMPANY FOR INPATIENT REHAB AUTHORIZATION WHEN OCCUPATIONAL THERAPY EVALUATION HAS BEEN COMPLETED AND RECEIVED. CM WAITING ADMISSION DETERMINATION FROM [facility] OR REHAB OR [facility]. PT WILL NEED TO HAVE INSURANCE AUTHORIZATION WHEN OCCUPATIONAL THERAPY EVALUATION HAS BEEN COMPLETED AND RECEIVED BY [facility]. IBRAHIMA NELSON CASE MANAGEMENT DCP- Discharge Planning Updated by [id number]: Ibrahima Nelson on 03/01/19 3:[address] Patient Name: MANA SAXENA Encounter No: [id number] : 1940 Primary Insurance: AETNA MEDICARE PPO or HMO Anticipated DC Date: 02-24-2019 Planned Disposition: Inpatient Rehab External Planned Provider: [facility] DCP follow-up note: CM REVIEWED CHART, OCCUPATIONAL THERAPY EVALUATION HAS STILL NOT BEEN COMPLETED / DOCUMENTED. CM FAXED BASIC REFERRAL TO [facility] FOR INPATIENT REHAB CONSIDERATION AT [phone]. CM TO FAX UPDATE WITH OCCUPATIONAL THERAPY EVALUATION WHEN IT IS COMPLETED AND DOCUMENTED. Ibrahima Nelson, CASE MANAGEMENT Appended by Ibrahima Nelson on 03/01/2019 16:14 CDT: CM REVIEWED CHART, PT REFUSED PHYSICAL THERAPY TODAY AND THERAPY HAS SIGNED OFF DUE TO PT REFUSAL. OCCUPATIONAL THERAPY EVALUATION STILL NOT COMPLETED. IT IS CM'S EXPERIENCE THAT INSURANCE WILL NOT PAY FOR REHAB SERVICES UNLESS PT IS PARTICIPATING, WHICH THIS PT IS NOT. CM SPOKE TO PT IN ROOM WHO REPORTS HE DID NOT UNDERSTAND; PT STATES HE IS GOING HOME. WHEN CM EXPLAINED IN SLOW DETAIL THAT PT'S SPOUSE WANTS HIM TO GO TO REHAB, PT YELLS AT THAT SOMETHING MUST BE WRONG AND TO CALL . CM CALLED QUEEN ODESSA, SPOUSE, , LEFT MESSAGE ASKING FOR RETURN CALL. CM FAXED REFERRAL TO [facility] IN [place] THAT THEY CAN GET AUTHORIZATION FOR REHAB WITH PT'S REFUSAL TO DO THERAPY OR AT LEAST CONSIDER FOR HALFWAY CARE. CM WAITING RETURN CALL FROM PT'S SPOUSE, QUEEN ODESSA. CM WAITING ADMISSION DETERMINATION FROM [facility] OR REHAB OR [facility]. IBRAHIMA NELSON, CASE MANAGEMENT DCP- Discharge Planning Updated by [id number]: Ibrahima Nelson on 02/26/19 12:[address] Patient Name: MANA SAXENA Encounter No: [id number] : 1940 Primary Insurance: AETNA MEDICARE PPO or HMO Anticipated DC Date: 02-24-2019 Planned Disposition: Inpatient Rehab External Planned Provider: [facility] DCP follow-up note: CM RECEIVED CALL FROM AYUSH [facility]; SHE HAD CALLED PT'S SPOUSE TO ARRANGE DELIVERY OF MANUAL WHEELCHAIR AND SPOUSE REFUSED IT STATING THAT SHE CANNOT PHYSICALLY PUSH PT IN A WHEELCHAIR AND REQEUSTED A POWER CHAIR. CM ATTEMPTED TO SEE PT'S SPOUSE IN ROOM, SHE WAS NOT THERE. CM CALLED QUEEN ODESSA, . CM INFORMED THAT AN ELECTRIC WHEELCHAIR REQUIRES VERY DETAILED AND LENGHTY DOCUMENTATION THAT CANNOT BE DONE FROM HOSPITAL, REFERRED HER TO PT'S PRIMARY CARE DOCTOR. CM DISCUSSED AVAILABILITY OF REHAB SERVICES, PROVIDERS AND LOCATIONS. REPORTS SHE IS OLDER THAN PT AND IS HAVING TROUBLE CARING FOR PT IN HIS WEAKENED STATE AND WOULD LIKE REHAB AT [facility] FIRST CHOICE AND [facility] SECOND, [facility] THIRD BUT WILL NOT CONSIDER [place] IN [place]. CHOICE LETTER COMPLETED. CHART REVIEWED, PHYSICAL THERAPY EVALUATION STILL PENDING, NO OCCUPATIONAL THERAPY HAD BEEN ORDERED. CM OBTAINED ORDER FOR OCCUPATIONAL THERAPY EVALUATION. CM TO PROVIDE REFERRAL TO [facility] FOR INPATIENT REHAB CONSIDERATION ONCE PHYSICAL AND OCCUPATIONAL THERAPY EVALUATIONS ARE COMPLETED. Ibrahima Nelson, CASE MANAGEMENT DCP- Discharge Planning Updated by [id number]: Ibrahima Nelson on 02/23/19 3:[address] Patient Name: MANA SAXENA Admission Status: ER Accout number: [id number] Admission Date: 02-22-2019 : 1940 Admission Diagnosis: Attending: CASEY NAIDU Current LOS: 1 Anticipated DC Date: 02-24-2019 Planned Disposition: Home with Home Health Primary Insurance: UNINSURED DISCOUNT PLAN PLANNED EXTERNAL PROVIDER: [facility] Discharge Planning Comments: CM RECEIVED ORDER FOR HOME HEALTH. CM MET WITH PT AND SPOUSE IN ROOM TO DISCUSS DISCHARGE PLANNING AND NEEDS. MANA SAXENA provided verbal consent to discuss current and ongoing needs with/in the presence of: SPOUSE, . ANSWERED ALL QUESTIONS. PT LIVING AT HOME DEPENDENTLY WITH SPOUSE WHO ASSISTS WITH MEDICATIONS. PT HAS BEEN GETTING WEAKER AND NOW NEEDS ASSISTANCE WITH BATHING. PT HAS WALKER WITH WHEELS, SEAT AND BRAKES AND NO MEDICAL EQUIPMENT PROVIDER PREFERENCE. PT HAS HOME HEALTH WITH [facility] FOR NURSING AND PHYSICAL THERAPY. CM DISCUSSED AVAILABILITY OF HOME HEALTH, REHAB SERVICES AND MEDICAL EQUIPMENT. PT'S SPOUSE WANTS [facility] RESUMPTION AND REPORTS NEEDING A WHEELCHAIR PT IS NO LONGER ABLE TO CLIMB THE STEPS TO GET ON THE MEDICAID BUS FOR DIALYSIS TRANSPORTATION. PT GOES TO DIALYSIS IN [place] ON MWF SCHEDULE. PT'S FAMILY TO TRANSPORT HOME AT DISCHARGE. CHOICE SIGNED FOR [facility], CHOICE FOR NO PREFERENCE FOR MEDICAL EQUIPMENT PROVIDER COMPLETED BY CM. CM COLLECTED REGISTRATION INFORMATION AND FORWARDED TO [facility] OF REGISTRATION. CM SPOKE TO BOWEN TEJADA WHO PROVIDED ORDER FOR WHEELCHAIR. CM CALLED [facility] PATIENT, , SPOKE TO AYUSH AND PROVIDED REFERRAL INFORMATION FOR WHEELCHAIR. CM FAXED ORDER AND CHART INFORMATION TO [facility] PATIENT AT [phone]. [facility] PATIENT TO PROCESS ORDER FOR WHEELCHAIR DELIVERY TO PT IF QUALIFIES; PT'S INSURANCE REQUIRES PRIOR AUTHORIZATION. CM CALLED [facility], , SPOKE TO KURT, PROVIDED REFERRAL INFORMATION, PT IS ON SERVICES WITH [facility] ALREADY.. CM FAXED REFERRAL INFORMATION TO [facility], . FOR DISCHARGE, NOTIFY [facility] AT [phone]; FAX DISCHARGE INFORMATION TO [facility] AT [phone]. Brine Supervisor: Ibrahima Nelson DCPIA - Discharge Planning Initial Assessment Updated by [id number]: Ibrahima Nelson on 02/23/19 3:52 pm * Is the patient Alert and Oriented? Yes * How many steps to enter\\exit or inside your home? RAMP * PCP DR. VIC PAREDES IN [place] * Pharmacy [facility] [place] * Preadmission Environment Home with Family * ADLs Partial Dependent * Partial ADLs (Assistance needed) Bathing Medication Management * Equipment Rolling Walker * Other Equipment ROLLING WALKER WITH SEAT AND BRAKES NO MEDICAL EQUIPMENT PROVIDER PREFERENCE * List name and contact numbers for known caregivers / representatives who currently or will assist patient after discharge: QUEEN ODESSA, SPOUSE, IDRIS SAXENA, NIECE, * Verbal permission to speak to the caregivers and representatives has been obtained from the patient. Yes * Community resources currently utilized Home Health * Please name any agencies selected above. [facility], NURSING AND PHYSICAL THERAPY * Additional services required to return to the preadmission environment? No * Can the patient safely return to the preadmission environment? Yes * Has this patient been hospitalized within the prior 30 days at any hospital? Yes Coverage Notice Reviewer: [id number] Edilia Nelson Notice Issued Date-Time: 02/23/2019 15:15 Notice Type: Patient Choice Letter Notice Delivered To: Family Member Relationship to Patient: Spouse Color Adviser Name: QUEEN ODESSA Delivery Method: HAND - Hand Delivered Cristina Days: Prior Verbal Notification: Recipient Understood Notice: Yes Recipient Signature: Yes Med Rec Note Co-signed by Attending: Coverage Notice Comment: ANY MEDICAL EQUIPMENT COMPANY SERVICING [place] // [facility] Reviewer: [id number] Edilia Nelson Notice Issued Date-Time: 02/26/2019 12:00 Notice Type: Patient Choice Letter Notice Delivered To: Family Member Relationship to Patient: Spouse Color Adviser Name: QUEEN ODESSA Delivery Method: PHONE - Phone Cristina Days: Prior Verbal Notification: Recipient Understood Notice: Yes Recipient Signature: Med Rec Note Co-signed by Attending: Coverage Notice Comment: [facility] 2- [facility] Reviewer: [id number] - Ibrahima Nelson Notice Issued Date-Time: 03/11/2019 15:50 Notice Type: Patient Choice Letter Notice Delivered To: Family Member Relationship to Patient: Spouse Color Adviser Name: QUEEN ODESSA Delivery Method: HAND - Hand Delivered Cristina Days: Prior Verbal Notification: Recipient Understood Notice: Yes Recipient Signature: Med Rec Note Co-signed by Attending: Coverage Notice Comment: [facility] OR ANY IN NETWORK [facility] FOR REHAB Last DP export: 03/15/19 1:58 p Patient Name: MANA SAXENA Page 39510 at 1641 All edits/amendments must be made on the electronic document DICTATION DATE: 03/16/191640 GYM INSTRUCTOR: GRACE 03/16/191640 RPT#: [id number] DC DATE: STATUS: ADM IN [facility] [address] [place] [address] END OF REPORT
--- NOTE | 2019-03-16 17:05 | NUR ---
BLOOD SUGAR OF 165, NO COVERAGE DUE TO PT BOTTOMING OUT DURING THE NIGHT. SET PT TRAY UP AND SET HIM UP FOR DINNER. PT DENIES ANY NEEDS AT THIS TIME. CALL LIGHT IN REACH, NAD NOTED.
[2019-03-16 20:00] VITALS: BP 107/56
--- NOTE | 2019-03-16 21:50 | NUR ---
RECIEVED BEDSIDE REPORT. AAOX2, VSS, MEPILEX DRESSING TO COCCYX C/D/I. FSBS 213, 4 UNITS OF HUMULIN GIVEN. PT STATES HE HE FEELING A LOT BETTER. ASSIST PT ON BED AYALA. CVL DRESSING ON GROIN PATENT/INTACT. PT DENIES ANY FURTHER NEEDS FOR COMFORT CARE. WILL CPOC. CL IN REACH, BED IN LOW, SR UP X2.
--- NOTE | 2019-03-16 22:06 | NUR ---
PT STATES HE WANTS TO SIT UP IN CHAIR. HELP TRANSFER PT FROM BED TO CHAIR. PT VOICED THANKS. CL IN REACH.
[2019-03-17 00:09] VITALS: BP 106/48
--- NOTE | 2019-03-17 00:14 | NUR ---
TRANSFERED PT BACK IN BED. PT TOLERATE WELL. PT DENIES ANY FURTHER NEED AT THIS TIME WILL CPOC. CL IN REACH, BED IN LOW, SR UP X2.
[2019-03-17 04:00] VITALS: BP 121/62
--- NOTE | 2019-03-17 04:27 | NUR ---
FSBS 294. 6 UNITS OF HUMULIN GIVEN @ THIS TIME. PT CURRENLTY RESTING IN BED WITH EYES CLOSED. WILL CTM.
[2019-03-17 06:23] LABS: ALBUMIN 2.5 g/dL (3.4-5.0); BILIRUBIN - TOTAL 0.67 mg/dL (0.2-1.3); CALCIUM 7.9 mg/dL (8.5-10.1); CARBON DIOXIDE 27.5 mmol/L (21.0-32.0); CREATININE - SERUM 5.5 mg/dL (0.6-1.3); PHOSPHOROUS 2.2 mg/dL (2.5-4.9); PROTEIN - SERUM 5.7 g/dL (6.4-8.2)
[2019-03-17 06:27] LABS: ANION GAP 12.8 mmol/L (8-16); POTASSIUM - SERUM 4.3 mmol/L (3.5-5.1)
[2019-03-17 07:06] LABS: HEMATOCRIT 27.1 % (42.0-54.0); HEMOGLOBIN 8.7 g/dL (13.5-17.5); MCH 29.8 pg (26.0-34.0); MCHC 32.1 g/dL (31.0-37.0); MCV 92.8 fL (80.0-100.0); MEAN PLATELET VOLUME 12.4 fL (7.4-10.4); PLATELET COUNT 162 10x3/uL (130-400); RBC 2.92 10x6/uL (4.20-6.10); RDW 19.8 % (11.5-14.5); WBC 4.7 10x3/uL (4.8-10.8)
--- NOTE | 2019-03-17 07:20 | NUR ---
RESTING QUIETLY WITH EYES CLOSED. RESP EVEN,NONLABORED.
--- NOTE | 2019-03-17 08:05 | MORECARE ---
CASE MANAGEMENT DISCHARGE SUMMARY PATIENT: MANA SAXENA UNIT: [id number] ADM DATE: 02/24/19 AGE: 78 : 38 SEX: M ROOM/BED: D.2102 AUTHOR: BJ,DOC PHYSICIAN: REFERRING PHYSICIAN: CASEY NAIDU MD DATE OF SERVICE: 03/17/19 Discharge Plan Patient Name: MANA SAXENA Facility: [facility]:[place] : 1940 Planned Disposition: Nursing Facility [facility] Cert Anticipated Discharge Date: 03/15/19 Discharge Date: Expected LOS: 19 Initial Reviewer: [id number] Initial Review Date: 02/22/2019 Generated: 03/17/19 9:05 am Comments DCP- Discharge Planning Updated by [id number]: Ibrahima Nelson on 03/17/19 7:[address] Patient Name: MANA SAXENA Encounter No: [id number] : 1940 Primary Insurance: AETNA MEDICARE PPO or HMO Anticipated DC Date: 03-15-2019 Planned Disposition: Nursing Facility [facility] Cert External Planned Provider: [facility], MEDICARE REHAB BED DCP follow-up note: CM FAXED UPDATE TO [facility], . PT'S SPOUSE REFUSING LONG-TERM CARE AND INSISTING ON SKILLED NUSING REHAB WHICH REQUIRES PT TO PARTICIPATE IN THERAPY SERVICES. HOPEFULLY WILL HAVE ENOUGH PARTICIPATION TO SECURE INSURANCE AUTHORIZATION FOR REHAB PLACEMENT AT [facility]. IBRAHIMA NELSON,CASE MANAGEMENT DCP- Discharge Planning Updated by [id number]: Ibrahima Nelson on 03/16/19 3:[address] Patient Name: MANA SAXENA Encounter No: [id number] : 1940 Primary Insurance: AETNA MEDICARE PPO or HMO Anticipated DC Date: 03-15-2019 Planned Disposition: Nursing Facility [facility] Cert External Planned Provider: [facility], LONG TERM CARE MEDICAID BED DCP follow-up note: CM FAXED UPDATE TO [facility], . PT'S SPOUSE REFUSING TELECOMMUNICATIONS PROFESSIONAL CARE AND INSISTING ON SKILLED NUSING REHAB WHICH REQUIRES PT TO PARTICIPATE IN THERAPY SERVICES. CM TO SEND THERAPY UPDATE TOMORROW, HOPEFULLY WILL HAVE ENOUGH PARTICIPATION TO SECURE REHAB PLACEMENT AT [facility]. IBRAHIMA NELSONCASE MANAGEMENT DCP- Discharge Planning Updated by [id number]: Ibrahima Nelson on 03/15/19 1:[address] Patient Name: MANA SAXENA Encounter No: [id number] : 1940 Primary Insurance: AETNA MEDICARE PPO or HMO Anticipated DC Date: 03-15-2019 Planned Disposition: Nursing Facility [facility] Cert External Planned Provider: [facility], LONG TERM CARE MEDICAID BED DCP follow-up note: HODA RECEIVED MESSAGE FROM PUJA MADSEN [facility], PT'S INSURANCE WILL NOT APPROVE REHAB SERVICES PT HAS BEEN REFUSING THERAPY. [facility] WILL ACCEPT FOR TELECOMMUNICATIONS PROFESSIONAL CARE IF PT'S FAMILY AGREES AND WILL WORK OUT FINANCIAL ARRANGEMENTS. CM CALLED AND NOTIFIED QUEEN ODESSA AT [phone] WHO INFORMED CM THAT SHE IS NOT ABLE TO TAKE CARE OF PT AT HOME BY HERSELF AND WILL DISCUSS TELECOMMUNICATIONS PROFESSIONAL CARE ARRANGEMENTS WITH [facility]. HODA NOTIFIED PUJA OF [facility]. [facility] PRESERVATIONIST CALLING PT'S NOW TO DISCUSS FINANCIAL ARRANGEMENTS FOR TELECOMMUNICATIONS PROFESSIONAL CARE PLACEMENT. CM WAITING FAMILY AND PRISON TO WORK OUT FINANCIAL ARRANGEMENTS FOR TELECOMMUNICATIONS PROFESSIONAL CARE PRISON PLACEMENT. Ibrahima Nelson, CASE MANAGEMENT Appended by Ibrahima Nelson on 03/15/2019 14:55 CDT: HODA RECEIVED CALL FROM QUEEN ODESSA, , WHO STATED THAT SHE DID NOT KNOW THAT PT HAD TO PARTICIPATE WITH THERAPY FOR INSURANCE TO PAY FOR HIM TO GO TO REHAB. WANG STATES THAT SHE IS COMING TO HOSPITAL THIS AFTERNOON TO SPEAK TO PT AND TELL HIM HE HAS TO PARTIPATE WITH THERAPY SO HE CAN GO TO REHAB AT [facility]. HODA EXPLAINED [facility], STATES SHE DOES NOT WANT PT IN LONG-TERM CARE AND WILL COME AND TELL PT TO PARTICIPATE IN THERAPY AT [facility] SO HE CAN GO TO REHAB AT [facility]. HODA NOTIFIED BOWEN TEJADA. CM WAITING ON PT'S SPOUSE TO SPEAK TO HIM IN THE ROOM REGARDING PARTICIPATING WITH HOSPITAL THERAPY SO INSURANCE WILL PAY FOR SKILLED REHAB; PT'S SPOUSE REFUSING LONG-TERM CARE AND INSISTING ON SKILLED NUSING REHAB WHICH REQUIRES PT TO PARTICIPATE IN THERAPY SERVICES. CM TO CONTINUE TO FOLLOW AND ASSIST. IBRAHIMA NELSONCASE MANAGEMENT DCP- Discharge Planning Updated by [id number]: Ibrahima Nelson on 03/15/19 6:[address] Patient Name: MANA SAXENA Encounter No: [id number] : 1940 Primary Insurance: AETNA MEDICARE PPO or HMO Anticipated DC Date: 02-24-2019 Planned Disposition: Shelter Facility External Planned Provider:[facility], MEDICARE REHAB BED DCP follow-up note: CM NOTIFIED PUJA OF [facility] THAT PT MAY DISCHARGE TO REHAB TODAY. CM FAXED UPDATE WITH THERAPY NOTES TO [facility] VIA PUJA AT [phone]. CM WAITING ADMISSION DETERMINATION AND INSURANCE AUTHORIZATION FOR REHAB AT [facility]. Ibrahima Nelson, CASE MANAGEMENT DCP- Discharge Planning Updated by [id number]: Ibrahima Nelson on 03/12/19 3:[address] Patient Name: MANA SAXENA Encounter No: [id number] : [birth year] Primary Insurance: AETNA MEDICARE PPO or HMO Anticipated DC Date: 02-24-2019 Planned Disposition: Shelter Facility External Planned Provider: [facility], MEDICARE REHAB BED DCP follow-up note: CM RECEIVED CALL FROM [facility]; REFERRAL WAS RECEIVED, PT'S INSURANCE WILL PAY OUT OF NETWORK BENEFITS JUST THE SAME IN NETWORK TO [facility]. PT WILL NEED THERAPY NOTES WITH PATIENT PARTICIPATION TO GET INSURANCE AUTHORIZATION FOR REHAB. PT NEEDS THERAPY NOTES DOCUMENTING PATIENT PARTICIPATION FOR INSURANCE TO AUTHORIZE . CM WAITING ADMISSION DETERMINATION AND INSURANCE AUTHORIZATION FOR REHAB AT [facility]. Ibrahima Nelson, CASE MANAGEMENT DCP- Discharge Planning Updated by [id number]: Ibrahima Nelson on 03/11/19 1:[address] Patient Name: MANA SAXENA Encounter No: [id number] : 1940 Primary Insurance: AETNA MEDICARE PPO or HMO Anticipated DC Date: 02-24-2019 Planned Disposition: Shelter Facility External Planned Provider: [facility], MEDICARE REHAB BED DCP follow-up note: CM RECEIVED CALL FROM DAVID, THEY ARE OUT OF INSURANCE NETWORK AND CANNOT ACCEPT PT. CM SPOKE TO PT AND SPOUSE IN ROOM. REPORTS IT IS OK TO SEND REFERRAL TO [facility] AND IF THEY DON'T ACCEPT, ANY IN NETWORK FACILITY WILL HAVE TO DO, JUST NOT HAPPY [facility] IN [place]. CHOICE LETTER COMPLETED. QUEEN ODESSA PROVIDED INSURANCE CUSTOMER SERVICES NUMBER OF AND WEBSITE ADDRESS "[employer]" FOR CM USE IF NEEDED. CM NOTIFIED PUJA OF [facility] OF REHAB REFERRAL, . CM FAXED REFERRAL TO [facility] VIA PUJA AT [phone]. CM WAITING ADMISSION DETERMINATION AND INSURANCE AUTHORIZATION FOR REHAB AT [facility] IN [place]. FATOUMATA Bhatt DCP- Discharge Planning Updated by [id number]: Ibrahima Nelson on 03/10/19 2:[address] Patient Name: MANA SAXENA Encounter No: [id number] : 1940 Primary Insurance: AETNA MEDICARE PPO or HMO Anticipated DC Date: 02-24-2019 Planned Disposition: Shelter Facility External Planned Provider:[facility], MEDICARE REHAB BED DCP follow-up note: CM FAXED UDPATE WITH OT EVALUATION TO UBALDO AT [facility] AT [phone]. [facility] IS TRYING TO GET APPROVAL FOR OUT OF NETWORK SKILLED REHAB BENEFITS. CM WAITING ADMISSION DETERMINATION FROM [facility] FOR REHAB. PT WILL NEED TO HAVE INSURANCE AUTHORIZATION FOR REHAB SERVICES. IBRAHIMA NELSON CASE MANAGEMENT Appended by Ibrahima Nelson on 03/10/2019 15:03 CDT: CM RECEIVED CALL FROM UBALDO OF [facility], , WHO INFORMED CM THAT THEY ARE STILL TRYING TO CONNECT WITH PT'S INSURANCE COMPANY TO REQUEST AUTHORIZATION OF SERVICES. CM PROVIDED PT'S SOCIAL SECURITY NUMBER AND FAXED UDPATE TO UBALDO [facility] AT [phone]. [facility] IS TRYING TO GET APPROVAL FOR OUT OF NETWORK SKILLED REHAB BENEFITS. CM WAITING ADMISSION DETERMINATION FROM [facility] FOR REHAB. PT WILL NEED TO HAVE INSURANCE AUTHORIZATION FOR REHAB SERVICES. FATOUMATA BHATT DCP- Discharge Planning Updated by [id number]: Ibrahima Nelson on 03/09/19 10:[address] Patient Name: MANA SAXENA Encounter No: [id number] : 1940 Primary Insurance: AETNA MEDICARE PPO or HMO Anticipated DC Date: 02-24-2019 Planned Disposition: Shelter Facility External Planned Provider:[facility], MEDICARE REHAB BED DCP follow-up note: CM REVIEWED CHART, OBTAINED ORDER FOR OCCUPATIONAL THERAPY EVALUATION. CM FAXED UPDATED REFERRAL TO [facility], . CM RECEIVED CALL FROM UBALDO OF [facility], , [facility] IS NOT IN NETWORK WITH PT'S INSURANCE AND THEY HAVE SUBMITTED TO INSURANCE TO SEE IF INSURANCE WILL COVER REHAB AT [facility]. CM WAITING ADMISSION DETERMINATION FROM [facility] FOR REHAB. PT WILL NEED TO HAVE INSURANCE AUTHORIZATION FOR REHAB SERVICES. IBRAHIMA NELSON, CASE MANAGEMENT DCP- Discharge Planning Updated by [id number]: Ibrahima Nelson on 03/03/19 9:[address] Patient Name: MANA SAXENA Encounter No: [id number] : 8 Primary Insurance: AETNA MEDICARE PPO or HMO Anticipated DC Date: 02-24-2019 Planned Disposition: Shelter Facility External Planned Provider: [facility], MEDICARE REHAB BED DCP follow-up note: CM RECEIVED CALL FROM [facility], UPDATE PROVIDED VIA PHONE; DOUGLAS CANCELLED REFERRAL AND INSTRUCTED CM TO SEND REFERRAL WHEN PT IS BETTER AND IF PT STILL NEEDS INPATIENT REHAB SERVICES. CM WAITING ADMISSION DETERMINATION FROM [facility] FOR REHAB OR TELECOMMUNICATIONS PROFESSIONAL CARE. PT WILL NEED TO HAVE INSURANCE AUTHORIZATION WHEN OCCUPATIONAL THERAPY EVALUATION HAS BEEN COMPLETED AND RECEIVED BY ALF FACILITY. IBRAHIMA NELSON CASE MANAGEMENT DCP- Discharge Planning Updated by [id number]: Ibrahima Nelson on 03/02/19 10:[address] Patient Name: MANA SAXENA Encounter No: [id number] : 1940 Primary Insurance: AETNA MEDICARE PPO or HMO Anticipated DC Date: 02-24-2019 Planned Disposition: Inpatient Rehab External Planned Provider: [facility] INPATIENT REHAB DCP follow-up note: CM RECEIVED CALL FROM IAN OF [facility], THEY HAVE ACCEPTED MEDICALLY AND WILL SUBMIT TO INSURANCE FOR AUTHORIZATION FOR INPATIENT REHAB SERVICES. CM ADVISED THAT PT HAD MOVED TO ICU THIS MORNING AND THAT PT HAS BEEN REFUSING THERAPY SERVICES AND FURTHER THAT OCCUPATIONAL THERAPY EVALUATION HAS NOT YET BEEN COMPLETED. IAN WILL FOLLOW UP WITH CALL TO PT'S TO DISCUSS COMPLIANCE WITH THERAPY SERVICES TO SEE IF THE SPOUSE CAN SPEAK TO PT. CM WAITING RETURN CALL FROM PT'S SPOUSE, QUEEN ODESSA. [facility] WILL SUBMIT TO PT'S INSURANCE COMPANY FOR INPATIENT REHAB AUTHORIZATION WHEN OCCUPATIONAL THERAPY EVALUATION HAS BEEN COMPLETED AND RECEIVED. CM WAITING ADMISSION DETERMINATION FROM [facility] OR REHAB OR LONG-TERM CARE. PT WILL NEED TO HAVE INSURANCE AUTHORIZATION WHEN OCCUPATIONAL THERAPY EVALUATION HAS BEEN COMPLETED AND RECEIVED BY ALF FACILITY. FATOUMATA BHATT DCP- Discharge Planning Updated by [id number]: Ibrahima Nelson on 03/01/19 3:[address] Patient Name: MANA SAXENA Encounter No: [id number] : 1940 Primary Insurance: AETNA MEDICARE PPO or HMO Anticipated DC Date: 02-24-2019 Planned Disposition: Inpatient Rehab External Planned Provider: [facility] INPATIENT REHAB DCP follow-up note: CM REVIEWED CHART, OCCUPATIONAL THERAPY EVALUATION HAS STILL NOT BEEN COMPLETED / DOCUMENTED. CM FAXED BASIC REFERRAL TO [facility] FOR INPATIENT REHAB CONSIDERATION AT [phone]. CM TO FAX UPDATE WITH OCCUPATIONAL THERAPY EVALUATION WHEN IT IS COMPLETED AND DOCUMENTED. Ibrahima Nelson, CASE MANAGEMENT Appended by Ibrahima Nelson on 03/01/2019 16:14 CDT: CM REVIEWED CHART, PT REFUSED PHYSICAL THERAPY TODAY AND THERAPY HAS SIGNED OFF DUE TO PT REFUSAL. OCCUPATIONAL THERAPY EVALUATION STILL NOT COMPLETED. IT IS CM'S EXPERIENCE THAT INSURANCE WILL NOT PAY FOR REHAB SERVICES UNLESS PT IS PARTICIPATING, WHICH THIS PT IS NOT. CM SPOKE TO PT IN ROOM WHO REPORTS HE DID NOT UNDERSTAND; PT STATES HE IS GOING HOME. WHEN CM EXPLAINED IN SLOW DETAIL THAT PT'S SPOUSE WANTS HIM TO GO TO REHAB, PT YELLS AT THAT SOMETHING MUST BE WRONG AND TO CALL . CM CALLED QUEEN ODESSA, SPOUSE, , LEFT MESSAGE ASKING FOR RETURN CALL. CM FAXED REFERRAL TO [facility] [place] THAT THEY CAN GET AUTHORIZATION FOR REHAB WITH PT'S REFUSAL TO DO THERAPY OR AT LEAST CONSIDER FOR TELECOMMUNICATIONS PROFESSIONAL CARE. CM WAITING RETURN CALL FROM PT'S SPOUSE, QUEEN ODESSA. CM WAITING ADMISSION DETERMINATION FROM [facility] OR REHAB OR TELECOMMUNICATIONS PROFESSIONAL CARE. FATOUMATA BHATT DCP- Discharge Planning Updated by [id number]: Ibrahima Nelson on 02/26/19 12:[address] Patient Name: MANA SAXENA Encounter No: [id number] : 1940 Primary Insurance: AETNA MEDICARE PPO or HMO Anticipated DC Date: 02-24-2019 Planned Disposition: Inpatient Rehab External Planned Provider: [facility] INPATIENT REHAB DCP follow-up note: CM RECEIVED CALL FROM AYUSH OF [facility]; SHE HAD CALLED PT'S SPOUSE TO ARRANGE DELIVERY OF MANUAL WHEELCHAIR AND SPOUSE REFUSED IT STATING THAT SHE CANNOT PHYSICALLY PUSH PT IN A WHEELCHAIR AND REQEUSTED A POWER CHAIR. CM ATTEMPTED TO SEE PT'S SPOUSE IN ROOM, SHE WAS NOT THERE. CM CALLED QUEEN ODESSA, . CM INFORMED THAT AN ELECTRIC WHEELCHAIR REQUIRES VERY DETAILED AND LENGHTY DOCUMENTATION THAT CANNOT BE DONE FROM HOSPITAL, REFERRED HER TO PT'S PRIMARY CARE DOCTOR. CM DISCUSSED AVAILABILITY OF REHAB SERVICES, PROVIDERS AND LOCATIONS. REPORTS SHE IS OLDER THAN PT AND IS HAVING TROUBLE CARING FOR PT IN HIS WEAKENED STATE AND WOULD LIKE REHAB AT [facility] FIRST CHOICE AND [facility] SECOND, [facility] THIRD BUT WILL NOT CONSIDER [facility] IN [place]. CHOICE LETTER COMPLETED. CHART REVIEWED, PHYSICAL THERAPY EVALUATION STILL PENDING, NO OCCUPATIONAL THERAPY HAD BEEN ORDERED. CM OBTAINED ORDER FOR OCCUPATIONAL THERAPY EVALUATION. CM TO PROVIDE REFERRAL TO [facility] FOR INPATIENT REHAB CONSIDERATION ONCE PHYSICAL AND OCCUPATIONAL THERAPY EVALUATIONS ARE COMPLETED. Ibrahima Nelson, CASE MANAGEMENT DCP- Discharge Planning Updated by [id number]: Ibrahima Nelson on 02/23/19 3:[address] Patient Name: MANA SAXENA Admission Status: ER Accout number: [id number] Admission Date: 02-22-2019 : 1940 Admission Diagnosis: Attending: CASEY NAIDU Current LOS: 1 Anticipated DC Date: 02-24-2019 Planned Disposition: Home with Home Health Primary Insurance: UNINSURED DISCOUNT PLAN PLANNED EXTERNAL PROVIDER: [facility] Discharge Planning Comments: CM RECEIVED ORDER FOR HOME HEALTH. CM MET WITH PT AND SPOUSE IN ROOM TO DISCUSS DISCHARGE PLANNING AND NEEDS. MANA SAXENA provided verbal consent to discuss current and ongoing needs with/in the presence of: SPOUSE, . ANSWERED ALL QUESTIONS. PT LIVING AT HOME DEPENDENTLY WITH SPOUSE WHO ASSISTS WITH MEDICATIONS. PT HAS BEEN GETTING WEAKER AND NOW NEEDS ASSISTANCE WITH BATHING. PT HAS WALKER WITH WHEELS, SEAT AND BRAKES AND NO MEDICAL EQUIPMENT PROVIDER PREFERENCE. PT HAS HOME HEALTH WITH [facility] FOR NURSING AND PHYSICAL THERAPY. CM DISCUSSED AVAILABILITY OF HOME HEALTH, REHAB SERVICES AND MEDICAL EQUIPMENT. PT'S SPOUSE WANT[facility] AND REPORTS NEEDING A WHEELCHAIR PT IS NO LONGER ABLE TO CLIMB THE STEPS TO GET ON THE MEDICAID BUS FOR DIALYSIS TRANSPORTATION. PT GOES TO DIALYSIS IN [place] ON MWF SCHEDULE. PT'S FAMILY TO TRANSPORT HOME AT DISCHARGE. CHOICE SIGNED FOR [facility], CHOICE FOR NO PREFERENCE FOR MEDICAL EQUIPMENT PROVIDER COMPLETED BY CM. CM COLLECTED REGISTRATION INFORMATION AND FORWARDED TO [place] OF REGISTRATION. CM SPOKE TO BOWEN TEJADA WHO PROVIDED ORDER FOR WHEELCHAIR. CM CALLED [facility], , SPOKE TO AYUSH AND PROVIDED REFERRAL INFORMATION FOR WHEELCHAIR. CM FAXED ORDER AND CHART INFORMATION TO [facility] AT [phone]. [facility] PATIENT TO PROCESS ORDER FOR WHEELCHAIR DELIVERY TO PT IF QUALIFIES; PT'S INSURANCE REQUIRES PRIOR AUTHORIZATION. CM CALLED [facility], , SPOKE TO KURT, PROVIDED REFERRAL INFORMATION, PT IS ON SERVICES WITH [facility] ALREADY.. CM FAXED REFERRAL INFORMATION TO [facility], . FOR DISCHARGE, NOTIFY [facility] AT [phone]; FAX DISCHARGE INFORMATION TO [facility] AT [phone]. Projection Camera Operator: Ibrahima Nelson [facility] - Discharge Planning Initial Assessment Updated by [id number]: Ibrahima Nelson on 02/23/19 3:52 pm * Is the patient Alert and Oriented? Yes * How many steps to enter\\exit or inside your home? RAMP * PCP DR. VIC PAREDES IN [place] * Pharmacy [facility] IN [place] * Preadmission Environment Home with Family * ADLs Partial Dependent * Partial ADLs (Assistance needed) Bathing Medication Management * Equipment Rolling Walker * Other Equipment ROLLING WALKER WITH SEAT AND BRAKES NO MEDICAL EQUIPMENT PROVIDER PREFERENCE * List name and contact numbers for known caregivers / representatives who currently or will assist patient after discharge: QUEEN ODESSA, SPOUSE, IDRIS SAXENA, NIECE, * Verbal permission to speak to the caregivers and representatives has been obtained from the patient. Yes * Community resources currently utilized Home Health * Please name any agencies selected above. [facility], NURSING AND PHYSICAL THERAPY * Additional services required to return to the preadmission environment? No * Can the patient safely return to the preadmission environment? Yes * Has this patient been hospitalized within the prior 30 days at any hospital? Yes Coverage Notice Reviewer: [id number] Nelson Notice Issued Date-Time: 02/23/2019 15:15 Notice Type: Patient Choice Letter Notice Delivered To: Family Member Relationship to Patient: Spouse Bander Name: QUEEN ODESSA Delivery Method: HAND - Hand Delivered Cristina Days: Prior Verbal Notification: Recipient Understood Notice: Yes Recipient Signature: Yes Med Rec Note Co-signed by Attending: Coverage Notice Comment: ANY MEDICAL EQUIPMENT COMPANY SERVICING [place] // [facility] Reviewer: [id number] Nelson Notice Issued Date-Time: 02/26/2019 12:00 Notice Type: Patient Choice Letter Notice Delivered To: Family Member Relationship to Patient: Spouse Bander Name: QUEEN ODESSA Delivery Method: PHONE - Phone Cristina Days: Prior Verbal Notification: Recipient Understood Notice: Yes Recipient Signature: Med Rec Note Co-signed by Attending: Coverage Notice Comment: [facility]- [facility] 3-[facility] NOT [facility]!! Reviewer: [id number] Nelson Notice Issued Date-Time: 03/11/2019 15:50 Notice Type: Patient Choice Letter Notice Delivered To: Family Member Relationship to Patient: Spouse Bander Name: QUEEN ODESSA Delivery Method: HAND - Hand Delivered Cristina Days: Prior Verbal Notification: Recipient Understood Notice: Yes Recipient Signature: Med Rec Note Co-signed by Attending: Coverage Notice Comment: [facility] OR ANY IN NETWORK ALF FOR REHAB Last DP export: 03/16/19 3:41 p Patient Name: MANA SAXENA Page [id number] at 0805 All edits/amendments must be made on the electronic document DICTATION DATE: 03/17/19804 BROADCAST CHIEF ENGINEER: GRACE 03/17/19 08 RPT#: [id number] DC DATE: STATUS: ADM IN [facility] [address] [place] [address] END OF REPORT
--- NOTE | 2019-03-17 08:15 | NUR ---
ASSESSMENT COMPLETE. L GROIN TL PATENT. [place]. L AVF. MEPILEX DRESSING INTACT TO BUTTOCKS. DENIES ANY NEEDS AT THIS TIME.
[2019-03-17 08:41] LABS: CRENATED CELLS 1+; LYMPHOCYTES 21 % (15-50); MONOCYTES 15 % (2-11); NEUTROPHILS 63 % (40-80); PLATELET ESTIMATE NORMAL
[2019-03-17 08:48] VITALS: BP 99/52
--- NOTE | 2019-03-17 11:09 | NUR ---
OFF FLOOR TO DIALYSIS VIA BED.
--- NOTE | 2019-03-17 14:53 | NUR ---
RETURNED TO ROOM FROM DIALYSIS VIA BED.
[2019-03-17 16:09] LABS: FUNGUS MYCOLOGY CULTURE Preliminary report (())
[2019-03-17 16:17] VITALS: BP 106/56
--- NOTE | 2019-03-17 16:40 | NUR ---
FSBS 86. REPORTS THAT'S TOO LOW FOR HIM AND HE WILL BOTTOM OUT QUICKLY. APPLE JUICE GIVEN.
--- NOTE | 2019-03-17 19:40 | NUR ---
ROUNDS COMPLETED, AAOX3, VSS, RR EVEN AND UNLABORED. FSBS 149. NOT TREATED PER SLIDING SCALE. CVL IN GROIN PATENT. MEPILEX TO COCCYX C/D/I. PT CURRENTLY RESTING IN BED. DENIES ANY FURTHER NEEDS FOR COMFORT CARE. WILL CTM. CL IN REACH, BED IN LOW, SR UP X2.
[2019-03-17 20:00] VITALS: BP 117/62
--- NOTE | 2019-03-17 20:45 | NUR ---
READ DR. MALLOY'S NOTE ON PT DISCHARGE THIS AM, BUT NOTHING WAS DONE ON DC. CALLED BOWEN LOWE WOODWORKING BELT SANDER ABOUT PT'S DC. CHRISSY STATES CM POSSIBLY STILL WORKING ON PT'S PLACEMENT IN [facility] AND [place]. PT IN BED WITH EYES CLOSE. NO S/S OF DISTRESS. WILL CTM.
[2019-03-18] VITALS: BP 115/60
[2019-03-18 04:00] VITALS: BP 128/65
[2019-03-18 04:42] LABS: BASOPHILS 1.8 % (0-2); EOSINOPHILS 0.8 % (0-7); HEMATOCRIT 27.2 % (42.0-54.0); HEMOGLOBIN 8.9 g/dL (13.5-17.5); IMMATURE GRANULOCYTES 0.3 % (0-5); LYMPHOCYTES 13.5 % (15-50); MCH 30.1 pg (26.0-34.0); MCHC 32.7 g/dL (31.0-37.0); MCV 91.9 fL (80.0-100.0); MEAN PLATELET VOLUME 11.3 fL (7.4-10.4); MONOCYTES 17.6 % (2-11); PLATELET COUNT 169 10x3/uL (130-400); RBC 2.96 10x6/uL (4.20-6.10); RDW 20.1 % (11.5-14.5); WBC 3.9 10x3/uL (4.8-10.8)
[2019-03-18 04:56] LABS: ALBUMIN 2.5 g/dL (3.4-5.0); BILIRUBIN - TOTAL 0.77 mg/dL (0.2-1.3); CALCIUM 8.3 mg/dL (8.5-10.1); CARBON DIOXIDE 26.7 mmol/L (21.0-32.0); PROTEIN - SERUM 6.3 g/dL (6.4-8.2)
[2019-03-18 05:02] LABS: ANION GAP 12.9 mmol/L (8-16); POTASSIUM - SERUM 3.6 mmol/L (3.5-5.1)
--- NOTE | 2019-03-18 07:45 | NUR ---
ASSESSMENT COMPLETE. L TL PATENT TO LEFT GROIN. [place]. MEPILEX INTACT TO BUTTOCKS. L AVF. WANTING TO GO HOME. DENIES ANY NEEDS AT THIS TIME.
[2019-03-18 07:50] VITALS: BP 120/61
[2019-03-18 11:30] VITALS: BP 116/58
--- NOTE | 2019-03-18 11:37 | MORECARE ---
CASE MANAGEMENT DISCHARGE SUMMARY PATIENT: MANA SAXENA UNIT: [id number] ADM DATE: 02/24/19 AGE: 78 : 38 SEX: M ROOM/BED: D.210 AUTHOR: BJ,DOC PHYSICIAN: REFERRING PHYSICIAN: CASEY NAIDU MD DATE OF SERVICE: 03/18/19 Discharge Plan Patient Name: MANA SAXENA Facility: [facility]:[place] : 1940 Planned Disposition: Nursing Facility [facility] Cert Anticipated Discharge Date: 03/22/19 Discharge Date: Expected LOS: 26 Initial Reviewer: [id number] Initial Review Date: 02/22/2019 Generated: 03/18/19 12:37 pm Comments DCP- Discharge Planning Updated by [id number]: Ibrahima Nelson on 03/17/19 7:[address] Patient Name: MANA SAXENA Encounter No: [id number] : 1940 Primary Insurance: AETNA MEDICARE PPO or HMO Anticipated DC Date: 03-15-2019 Planned Disposition: Nursing Facility [facility] Cert External Planned Provider: [facility], MEDICARE REHAB BED DCP follow-up note: CM FAXED UPDATE TO [facility], . 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 HOPEFULLY WILL HAVE ENOUGH PARTICIPATION TO SECURE INSURANCE AUTHORIZATION FOR REHAB PLACEMENT AT [facility]. IBRAHIMA NELSON,CASE MANAGEMENT DCP- Discharge Planning Updated by [id number]: Ibrahima Nelson on 03/16/19 3:[address] Patient Name: MANA SAXENA Encounter No: [id number] : 1940 Primary Insurance: AETNA MEDICARE PPO or HMO Anticipated DC Date: 03-15-2019 Planned Disposition: Nursing Facility [facility] Cert External Planned Provider: [facility], LONG TERM CARE MEDICAID BED DCP follow-up note: CM FAXED UPDATE TO [facility], . 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 CM TO SEND THERAPY UPDATE TOMORROW, HOPEFULLY WILL HAVE ENOUGH PARTICIPATION TO SECURE REHAB PLACEMENT AT [facility]. IBRAHIMA NELSONCASE MANAGEMENT DCP- Discharge Planning Updated by [id number]: Ibrahima Nelson on 03/15/19 1:[address] Patient Name: MANA SAXENA Encounter No: [id number] : 1940 Primary Insurance: AETNA MEDICARE PPO or HMO Anticipated DC Date: 03-15-2019 Planned Disposition: Nursing Facility [facility] Cert External Planned Provider: [facility], LONG TERM CARE MEDICAID BED DCP follow-up note: HODA RECEIVED MESSAGE FROM PUJA MADSEN [facility], PT'S INSURANCE WILL NOT APPROVE REHAB SERVICES PT HAS BEEN REFUSING THERAPY. [facility] WILL ACCEPT FOR METAL MILLING MACHINE OPERATOR CARE IF PT'S FAMILY AGREES AND WILL WORK OUT FINANCIAL ARRANGEMENTS. CM CALLED AND NOTIFIED QUEEN ODESSA AT [phone] WHO INFORMED CM THAT SHE IS NOT ABLE TO TAKE CARE OF PT AT HOME BY HERSELF AND WILL DISCUSS METAL MILLING MACHINE OPERATOR CARE ARRANGEMENTS WITH [facility]. HODA NOTIFIED PUJA OF [facility]. [facility] ONSITE CASE MANAGER CALLING PT'S NOW TO DISCUSS FINANCIAL ARRANGEMENTS FOR METAL MILLING MACHINE OPERATOR CARE PLACEMENT. CM WAITING FAMILY AND [facility] TO WORK OUT FINANCIAL ARRANGEMENTS FOR METAL MILLING MACHINE OPERATOR CARE [facility] PLACEMENT. Ibrahima Nelson, CASE MANAGEMENT Appended by Ibrahima Nelson on 03/15/2019 14:55 CDT: HODA RECEIVED CALL FROM QUEEN ODESSA, , WHO STATED THAT SHE DID NOT KNOW THAT PT HAD TO PARTICIPATE WITH THERAPY FOR INSURANCE TO PAY FOR HIM TO GO TO REHAB. WANG STATES THAT SHE IS COMING TO HOSPITAL THIS AFTERNOON TO SPEAK TO PT AND TELL HIM HE HAS TO PARTIPATE WITH THERAPY SO HE CAN GO TO REHAB AT [facility]. HODA EXPLAINED PT [facility], STATES SHE DOES NOT WANT PT IN METAL MILLING MACHINE OPERATOR CARE AND WILL COME AND TELL PT TO PARTICIPATE IN THERAPY AT [facility] SO HE CAN GO TO REHAB AT [facility]. HODA NOTIFIED BOWEN TEJADA. 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 CM TO CONTINUE TO FOLLOW AND ASSIST. IBRAHIMA NELSONCASE MANAGEMENT DCP- Discharge Planning Updated by [id number]: Ibrahima Nelson on 03/15/19 6:[address] Patient Name: MANA SAXENA Encounter No: [id number] : 1940 Primary Insurance: AETNA MEDICARE PPO or HMO Anticipated DC Date: 02-24-2019 Planned Disposition: Intermediate Facility External Planned Provider:[facility], MEDICARE REHAB BED DCP follow-up note: CM NOTIFIED PUJA OF [facility] THAT PT MAY DISCHARGE TO REHAB TODAY. CM FAXED UPDATE WITH THERAPY NOTES TO [facility] VIA PUJA AT [phone]. CM WAITING ADMISSION DETERMINATION AND INSURANCE AUTHORIZATION FOR REHAB AT [facility]. Ibrahima Nelson, CASE MANAGEMENT DCP- Discharge Planning Updated by [id number]: Ibrahima Nelson on 03/12/19 3:[address] Patient Name: MANA SAXENA Encounter No: [id number] : [birth year] Primary Insurance: AETNA MEDICARE PPO or HMO Anticipated DC Date: 02-24-2019 Planned Disposition: Intermediate Facility External Planned Provider: [facility], MEDICARE REHAB BED DCP follow-up note: CM RECEIVED CALL FROM PUJA [facility]; REFERRAL WAS RECEIVED, PT'S INSURANCE WILL PAY OUT OF NETWORK BENEFITS JUST THE SAME IN NETWORK TO [facility]. PT WILL NEED THERAPY NOTES WITH PATIENT PARTICIPATION TO GET INSURANCE AUTHORIZATION FOR REHAB. PT NEEDS THERAPY NOTES DOCUMENTING PATIENT PARTICIPATION FOR INSURANCE TO AUTHORIZE . CM WAITING ADMISSION DETERMINATION AND INSURANCE AUTHORIZATION FOR REHAB AT [facility]. Ibrahima Nelson, CASE MANAGEMENT DCP- Discharge Planning Updated by [id number]: Ibrahima Nelson on 03/11/19 1:[address] Patient Name: MANA SAXENA Encounter No: [id number] : 1940 Primary Insurance: AETNA MEDICARE PPO or HMO Anticipated DC Date: 02-24-2019 Planned Disposition: Intermediate Facility External Planned Provider: [facility], MEDICARE REHAB BED DCP follow-up note: CM RECEIVED CALL FROM DAV[facility], THEY ARE OUT OF INSURANCE NETWORK AND CANNOT ACCEPT PT. CM SPOKE TO PT AND SPOUSE IN ROOM. REPORTS IT IS OK TO SEND REFERRAL TO [facility] AND IF THEY DON'T ACCEPT, ANY IN NETWORK FACILITY WILL HAVE TO DO, JUST NOT HAPPY [place] IN [place]. CHOICE LETTER COMPLETED. QUEEN ODESSA PROVIDED INSURANCE CUSTOMER SERVICES NUMBER OF AND WEBSITE ADDRESS "[email or web address]" FOR CM USE IF NEEDED. CM NOTIFIED PUJA OF [facility] OF REHAB REFERRAL, . CM FAXED REFERRAL TO [facility] VIA PUJA AT [phone]. CM WAITING ADMISSION DETERMINATION AND INSURANCE AUTHORIZATION FOR REHAB AT [facility] IN [place]. FATOUMATA Bhatt DCP- Discharge Planning Updated by [id number]: Ibrahima Nelson on 03/10/19 2:[address] Patient Name: MANA SAXENA Encounter No: [id number] : 1940 Primary Insurance: AETNA MEDICARE PPO or HMO Anticipated DC Date: 02-24-2019 Planned Disposition: Intermediate Facility External Planned Provider:[facility], MEDICARE REHAB BED DCP follow-up note: CM FAXED UDPATE WITH OT EVALUATION TO UBALDO AT [facility] AT [phone]. [facility] IS TRYING TO GET APPROVAL FOR OUT OF NETWORK SKILLED REHAB BENEFITS. CM WAITING ADMISSION DETERMINATION FROM [facility] AND REHAB FOR REHAB. PT WILL NEED TO HAVE INSURANCE AUTHORIZATION FOR REHAB SERVICES. IBRAHIMA NELSON CASE MANAGEMENT Appended by Ibrahima Nelson on 03/10/2019 15:03 CDT: CM [facility], , WHO INFORMED CM THAT THEY ARE STILL TRYING TO CONNECT WITH PT'S INSURANCE COMPANY TO REQUEST AUTHORIZATION OF SERVICES. CM PROVIDED PT'S SOCIAL SECURITY NUMBER AND FAXED UDPATE TO UBALDO [facility] AT [phone]. [facility] IS TRYING TO GET APPROVAL FOR OUT OF NETWORK SKILLED REHAB BENEFITS. CM WAITING ADMISSION DETERMINATION FROM [facility] AND REHAB FOR REHAB. PT WILL NEED TO HAVE INSURANCE AUTHORIZATION FOR REHAB SERVICES. FATOUMATA BHATT DCP- Discharge Planning Updated by [id number]: Ibrahima Nelson on 03/09/19 10:[address] Patient Name: MANA SAXENA Encounter No: [id number] : 1940 Primary Insurance: AETNA MEDICARE PPO or HMO Anticipated DC Date: 02-24-2019 Planned Disposition: Intermediate Facility External Planned Provider:[facility], MEDICARE REHAB BED DCP follow-up note: CM REVIEWED CHART, OBTAINED ORDER FOR OCCUPATIONAL THERAPY EVALUATION. CM FAXED UPDATED REFERRAL TO [facility] AND [facility], . CM RECEIVED CALL FROM UBALDO OF [facility], , [facility] IS NOT IN NETWORK WITH PT'S INSURANCE AND THEY HAVE SUBMITTED TO INSURANCE TO SEE IF INSURANCE WILL COVER REHAB AT [facility]. CM WAITING ADMISSION DETERMINATION FROM [facility] AND REHAB FOR REHAB. PT WILL NEED TO HAVE INSURANCE AUTHORIZATION FOR REHAB SERVICES. IBRAHIMA NELSON, CASE MANAGEMENT DCP- Discharge Planning Updated by [id number]: Ibrahima Nelson on 03/03/19 9:[address] Patient Name: MANA SAXENA Encounter No: [id number] : 8 Primary Insurance: AETNA MEDICARE PPO or HMO Anticipated DC Date: 02-24-2019 Planned Disposition: Intermediate Facility External Planned Provider: [facility], MEDICARE REHAB BED DCP follow-up note: CM RECEIVED CALL FROM [facility], UPDATE PROVIDED VIA PHONE; DOUGLAS CANCELLED REFERRAL AND INSTRUCTED CM TO SEND REFERRAL WHEN PT IS BETTER AND IF PT STILL NEEDS INPATIENT REHAB SERVICES. CM WAITING ADMISSION DETERMINATION FROM [facility] AND REHAB FOR REHAB OR METAL MILLING MACHINE OPERATOR CARE. PT WILL NEED TO HAVE INSURANCE AUTHORIZATION WHEN OCCUPATIONAL THERAPY EVALUATION HAS BEEN COMPLETED AND RECEIVED BY LONG TERM FACILITY. IBRAHIMA NELSON CASE MANAGEMENT DCP- Discharge Planning Updated by [id number]: Ibrahima Nelson on 03/02/19 10:[address] Patient Name: MANA SXAENA Encounter No: [id number] : 1940 Primary Insurance: AETNA MEDICARE PPO or HMO Anticipated DC Date: 02-24-2019 Planned Disposition: Inpatient Rehab External Planned Provider: [facility] DCP follow-up note: CM RECEIVED CALL FROM IAN [facility], THEY HAVE ACCEPTED MEDICALLY AND WILL SUBMIT TO INSURANCE FOR AUTHORIZATION FOR INPATIENT REHAB SERVICES. CM ADVISED THAT PT HAD MOVED TO ICU THIS MORNING AND THAT PT HAS BEEN REFUSING THERAPY SERVICES AND FURTHER THAT OCCUPATIONAL THERAPY EVALUATION HAS NOT YET BEEN COMPLETED. IAN WILL FOLLOW UP WITH CALL TO PT'S TO DISCUSS COMPLIANCE WITH THERAPY SERVICES TO SEE IF THE SPOUSE CAN SPEAK TO PT. CM WAITING RETURN CALL FROM PT'S SPOUSE, QUEEN ODESSA. [facility] WILL SUBMIT TO PT'S INSURANCE COMPANY FOR INPATIENT REHAB AUTHORIZATION WHEN OCCUPATIONAL THERAPY EVALUATION HAS BEEN COMPLETED AND RECEIVED. CM WAITING ADMISSION DETERMINATION FROM [facility] AND REHAB OR REHAB OR METAL MILLING MACHINE OPERATOR CARE. PT WILL NEED TO HAVE INSURANCE AUTHORIZATION WHEN OCCUPATIONAL THERAPY EVALUATION HAS BEEN COMPLETED AND RECEIVED BY LONG TERM FACILITY. FATOUMATA BHATT DCP- Discharge Planning Updated by [id number]: Ibrahima Nelson on 03/01/19 3:[address] Patient Name: MANA SAXENA Encounter No: [id number] : 1940 Primary Insurance: AETNA MEDICARE PPO or HMO Anticipated DC Date: 02-24-2019 Planned Disposition: Inpatient Rehab External Planned Provider: [facility] DCP follow-up note: CM REVIEWED CHART, OCCUPATIONAL THERAPY EVALUATION HAS STILL NOT BEEN COMPLETED / DOCUMENTED. CM FAXED BASIC REFERRAL TO [facility] FOR INPATIENT REHAB CONSIDERATION AT [phone]. CM TO FAX UPDATE WITH OCCUPATIONAL THERAPY EVALUATION WHEN IT IS COMPLETED AND DOCUMENTED. Ibrahima Nelson, CASE MANAGEMENT Appended by Ibrahima Nelson on 03/01/2019 16:14 CDT: CM REVIEWED CHART, PT REFUSED PHYSICAL THERAPY TODAY AND THERAPY HAS SIGNED OFF DUE TO PT REFUSAL. OCCUPATIONAL THERAPY EVALUATION STILL NOT COMPLETED. IT IS CM'S EXPERIENCE THAT INSURANCE WILL NOT PAY FOR REHAB SERVICES UNLESS PT IS PARTICIPATING, WHICH THIS PT IS NOT. CM SPOKE TO PT IN ROOM WHO REPORTS HE DID NOT UNDERSTAND; PT STATES HE IS GOING HOME. WHEN CM EXPLAINED IN SLOW DETAIL THAT PT'S SPOUSE WANTS HIM TO GO TO REHAB, PT YELLS AT THAT SOMETHING MUST BE WRONG AND TO CALL . CM CALLED QUEEN ODESSA, SPOUSE, , LEFT MESSAGE ASKING FOR RETURN CALL. CM FAXED REFERRAL TO [facility] IN [place] THAT THEY CAN GET AUTHORIZATION FOR REHAB WITH PT'S REFUSAL TO DO THERAPY OR AT LEAST CONSIDER FOR NURSING HOME CARE. CM WAITING RETURN CALL FROM PT'S SPOUSE, QUEEN ODESSA. CM WAITING ADMISSION DETERMINATION FROM [facility] AND REHAB OR REHAB OR NURSING HOME CARE. FATOUMATA BHATT DCP- Discharge Planning Updated by [id number]: Ibrahima Nelson on 02/26/19 12:[address] Patient Name: MANA SAXENA Encounter No: [id number] : 1940 Primary Insurance: AETNA MEDICARE PPO or HMO Anticipated DC Date: 02-24-2019 Planned Disposition: Inpatient Rehab External Planned Provider: [facility] DCP follow-up note: CM RECEIVED CALL FROM AYUSH OF [facility]; SHE HAD CALLED PT'S SPOUSE TO ARRANGE DELIVERY OF MANUAL WHEELCHAIR AND SPOUSE REFUSED IT STATING THAT SHE CANNOT PHYSICALLY PUSH PT IN A WHEELCHAIR AND REQEUSTED A POWER CHAIR. CM ATTEMPTED TO SEE PT'S SPOUSE IN ROOM, SHE WAS NOT THERE. CM CALLED QUEEN ODESSA, . CM INFORMED THAT AN ELECTRIC WHEELCHAIR REQUIRES VERY DETAILED AND LENGHTY DOCUMENTATION THAT CANNOT BE DONE FROM HOSPITAL, REFERRED HER TO PT'S PRIMARY CARE DOCTOR. CM DISCUSSED AVAILABILITY OF REHAB SERVICES, PROVIDERS AND LOCATIONS. REPORTS SHE IS OLDER THAN PT AND IS HAVING TROUBLE CARING FOR PT IN HIS WEAKENED STATE AND WOULD LIKE REHAB AT [facility] FIRST CHOICE AND [facility] SECOND, [facility] THIRD BUT WILL NOT CONSIDER [facility] IN [place]. CHOICE LETTER COMPLETED. CHART REVIEWED, PHYSICAL THERAPY EVALUATION STILL PENDING, NO OCCUPATIONAL THERAPY HAD BEEN ORDERED. CM OBTAINED ORDER FOR OCCUPATIONAL THERAPY EVALUATION. CM TO PROVIDE REFERRAL TO [facility] FOR INPATIENT REHAB CONSIDERATION ONCE PHYSICAL AND OCCUPATIONAL THERAPY EVALUATIONS ARE COMPLETED. Ibrahima Nelson, CASE MANAGEMENT DCP- Discharge Planning Updated by [id number]: Ibrahima Nelson on 02/23/19 3:[address] Patient Name: MANA SAXENA Admission Status: ER Accout number: [id number] Admission Date: 02-22-2019 : 1940 Admission Diagnosis: Attending: CASEY NAIDU Current LOS: 1 Anticipated DC Date: 02-24-2019 Planned Disposition: Home with Home Health Primary Insurance: UNINSURED DISCOUNT PLAN PLANNED EXTERNAL PROVIDER: [facility] Discharge Planning Comments: CM RECEIVED ORDER FOR HOME HEALTH. CM MET WITH PT AND SPOUSE IN ROOM TO DISCUSS DISCHARGE PLANNING AND NEEDS. MANA SAXENA provided verbal consent to discuss current and ongoing needs with/in the presence of: SPOUSE, . ANSWERED ALL QUESTIONS. PT LIVING AT HOME DEPENDENTLY WITH SPOUSE WHO ASSISTS WITH MEDICATIONS. PT HAS BEEN GETTING WEAKER AND NOW NEEDS ASSISTANCE WITH BATHING. PT HAS WALKER WITH WHEELS, SEAT AND BRAKES AND NO MEDICAL EQUIPMENT PROVIDER PREFERENCE. PT HAS HOME HEALTH WITH [facility] FOR NURSING AND PHYSICAL THERAPY. CM DISCUSSED AVAILABILITY OF HOME HEALTH, REHAB SERVICES AND MEDICAL EQUIPMENT. PT'S SPOUSE WANTS [facility] AND REPORTS NEEDING A WHEELCHAIR PT IS NO LONGER ABLE TO CLIMB THE STEPS TO GET ON THE MEDICAID BUS FOR DIALYSIS TRANSPORTATION. PT GOES TO DIALYSIS IN [place] ON MWF SCHEDULE. PT'S FAMILY TO TRANSPORT HOME AT DISCHARGE. CHOICE SIGNED FOR [facility], CHOICE FOR NO PREFERENCE FOR MEDICAL EQUIPMENT PROVIDER COMPLETED BY CM. CM COLLECTED REGISTRATION INFORMATION AND FORWARDED TO [place] OF REGISTRATION. CM SPOKE TO BOWEN TEJADA WHO PROVIDED ORDER FOR WHEELCHAIR. CM CALLED [facility] PATIENT, , SPOKE TO AYUSH AND PROVIDED REFERRAL INFORMATION FOR WHEELCHAIR. CM FAXED ORDER AND CHART INFORMATION TO [facility] PATIENT AT [phone]. [facility] PATIENT TO PROCESS ORDER FOR WHEELCHAIR DELIVERY TO PT IF QUALIFIES; PT'S INSURANCE REQUIRES PRIOR AUTHORIZATION. CM CALLED [facility], , SPOKE TO KURT, PROVIDED REFERRAL INFORMATION, PT IS ON SERVICES WITH [facility] ALREADY.. CM FAXED REFERRAL INFORMATION TO [facility], . FOR DISCHARGE, NOTIFY [facility] AT [phone]; FAX DISCHARGE INFORMATION TO [facility] AT [phone]. [employer] Professor: Ibrahima Nelson [facility] - Discharge Planning Initial Assessment Updated by [id number]: Ibrahima Nelson on 02/23/19 3:52 pm * Is the patient Alert and Oriented? Yes * How many steps to enter\\exit or inside your home? RAMP * PCP DR. VIC PAREDES IN [place] * Pharmacy [facility] IN [place] * Preadmission Environment Home with Family * ADLs Partial Dependent * Partial ADLs (Assistance needed) Bathing Medication Management * Equipment Rolling Walker * Other Equipment ROLLING WALKER WITH SEAT AND BRAKES NO MEDICAL EQUIPMENT PROVIDER PREFERENCE * List name and contact numbers for known caregivers / representatives who currently or will assist patient after discharge: QUEEN ODESSA, SPOUSE, IDRIS SAXENA, NIECE, * Verbal permission to speak to the caregivers and representatives has been obtained from the patient. Yes * Community resources currently utilized Home Health * Please name any agencies selected above. [facility], NURSING AND PHYSICAL THERAPY * Additional services required to return to the preadmission environment? No * Can the patient safely return to the preadmission environment? Yes * Has this patient been hospitalized within the prior 30 days at any hospital? Yes Coverage Notice Reviewer: [id number] Nelson Notice Issued Date-Time: 02/23/2019 15:15 Notice Type: Patient Choice Letter Notice Delivered To: Family Member Relationship to Patient: Spouse Circulation Tender Name: QUEEN ODESSA Delivery Method: HAND - Hand Delivered Cristina Days: Prior Verbal Notification: Recipient Understood Notice: Yes Recipient Signature: Yes Med Rec Note Co-signed by Attending: Coverage Notice Comment: ANY MEDICAL EQUIPMENT COMPANY SERVICING [place] // [facility] Reviewer: [id number] Nelson Notice Issued Date-Time: 02/26/2019 12:00 Notice Type: Patient Choice Letter Notice Delivered To: Family Member Relationship to Patient: Spouse Circulation Tender Name: QUEEN ODESSA Delivery Method: PHONE - Phone Cristina Days: Prior Verbal Notification: Recipient Understood Notice: Yes Recipient Signature: Med Rec Note Co-signed by Attending: Coverage Notice Comment: [facility]- [facility] 3-[facility] NOT [facility]!! Reviewer: [id number] Nelson Notice Issued Date-Time: 03/11/2019 15:50 Notice Type: Patient Choice Letter Notice Delivered To: Family Member Relationship to Patient: Spouse Circulation Tender Name: QUEEN ODESSA Delivery Method: HAND - Hand Delivered Cristina Days: Prior Verbal Notification: Recipient Understood Notice: Yes Recipient Signature: Med Rec Note Co-signed by Attending: Coverage Notice Comment: [facility] OR ANY IN NETWORK LONG TERM FOR REHAB Last DP export: 03/17/19 7:05 a Patient Name: MANA SAXENA Page [id number] at 1137 All edits/amendments must be made on the electronic document DICTATION DATE: 03/18/19 1137 DIESEL INSPECTOR: GRACE 03/18/19 1137 RPT#: [id number] [place] DATE: STATUS: ADM IN [facility] [address] [place] [address] END OF REPORT
--- NOTE | 2019-03-18 11:47 | MORECARE ---
CASE MANAGEMENT DISCHARGE SUMMARY PATIENT: MANA SAXENA UNIT: [id number] ADM DATE: 02/24/19 AGE: 78 : 38 SEX: M ROOM/BED: D.2100 AUTHOR: BJ,DOC PHYSICIAN: REFERRING PHYSICIAN: CASEY NAIDU MD DATE OF SERVICE: 03/18/19 Discharge Plan Patient Name: MANA SAXENA Facility: [facility]:[place] : 1940 Planned Disposition: Nursing Facility [facility] Cert Anticipated Discharge Date: 03/22/19 Discharge Date: Expected LOS: 26 Initial Reviewer: [id number] Initial Review Date: 02/22/2019 Generated: 03/18/19 12:47 pm Comments DCP- Discharge Planning Updated by [id number]: Ibrahima Nelson on 03/18/19 10:[address] Patient Name: MANA SAXENA Encounter No: [id number] : 1940 Primary Insurance: AETNA MEDICARE PPO or HMO Anticipated DC Date: 03-22-2019 Planned Disposition: Nursing Facility [facility] Cert External Planned Provider: [facility], MEDICARE REHAB BED DCP follow-up note: CM FAXED UPDATE TO [facility], . CM RECEIVED MESSAGE FROM [facility]JA WHO INFORMED THAT [facility] PLANS TO ACCEPT BUT WILL NOT SEND FOR INSURANCE AUTHORIZATION OR MAKE FINAL ADMISSION DETERMINATION UNTIL NEW BLOOD CULTURE IS DONE TO SHOW PT IS CLEAR OF INFECTION. CM NOTIFIED BOWEN TEJADA. CM MET WITH PT AND FAMILY, DISCUSSED ABOVE. PT'S SPOUSE REFUSING FLOOR WINDER CARE AND INSISTING ON SKILLED NUSING REHAB. [facility] NOW WANTS NEW BLOOD CULTURE RESULT SHOWING NO INFECTION PRIOR TO SENDING TO INSURANCE FOR AUTHORIZATION. CM WAITING BLOOD CULTURE RESULT. IBRAHIMA NELSON,CASE MANAGEMENT DCP- Discharge Planning Updated by [id number]: Ibrahima Nelson on 03/17/19 7:[address] Patient Name: MANA SAXENA Encounter No: [id number] : 1940 Primary Insurance: AETNA MEDICARE PPO or HMO Anticipated DC Date: 03-15-2019 Planned Disposition: Nursing Facility [facility] Cert External Planned Provider: [facility], MEDICARE REHAB BED DCP follow-up note: CM FAXED UPDATE TO [facility], . PT'S SPOUSE REFUSING FLOOR WINDER CARE AND INSISTING ON SKILLED NUSING REHAB WHICH REQUIRES PT TO PARTICIPATE IN THERAPY SERVICES. [facility] WILL HAVE ENOUGH PARTICIPATION TO SECURE INSURANCE AUTHORIZATION FOR REHAB PLACEMENT AT [facility]. FATOUMATA BHATT MANAGEMENT DCP- Discharge Planning Updated by [id number]: Ibrahima Nelson on 03/16/19 3:[address] Patient Name: MANA SAXENA Encounter No: [id number] : 8 Primary Insurance: AETNA MEDICARE PPO or HMO Anticipated DC Date: 03-15-2019 Planned Disposition: Nursing Facility [facility] Cert External Planned Provider: [facility], LONG TERM CARE MEDICAID BED DCP follow-up note: CM FAXED UPDATE TO [facility], . PT'S SPOUSE REFUSING FLOOR WINDER CARE AND INSISTING ON SKILLED NUSING REHAB WHICH REQUIRES PT TO PARTICIPATE IN THERAPY SERVICES. CM TO SEND THERAPY UPDATE TOMORROW, [facility] WILL HAVE ENOUGH PARTICIPATION TO SECURE REHAB PLACEMENT AT [facility]. FATOUMATA BHATT DCP- Discharge Planning Updated by [id number]: Ibrahima Nelson on 03/15/19 1:[address] Patient Name: MANA SAXENA Encounter No: [id number] : 8 Primary Insurance: AETNA MEDICARE PPO or HMO Anticipated DC Date: 03-15-2019 Planned Disposition: Nursing Facility [facility] Cert External Planned Provider: [facility], LONG TERM CARE MEDICAID BED DCP follow-up note: CM RECEIVED MESSAGE FROM [facility], PT'S INSURANCE WILL NOT APPROVE REHAB SERVICES PT HAS BEEN REFUSING THERAPY. [facility] WILL ACCEPT FOR FLOOR WINDER CARE IF PT'S FAMILY AGREES AND WILL WORK OUT FINANCIAL ARRANGEMENTS. CM CALLED AND NOTIFIED QUEEN ODESSA AT [phone] WHO INFORMED CM THAT SHE IS NOT ABLE TO TAKE CARE OF PT AT HOME BY HERSELF AND WILL DISCUSS FLOOR WINDER CARE ARRANGEMENTS WITH [facility]. CM NOTIFIED [facility]. [facility] REGULATORY AFFAIRS MANAGER CALLING PT'S NOW TO DISCUSS FINANCIAL ARRANGEMENTS FOR RETIREMENT CARE PLACEMENT. CM WAITING FAMILY AND FPC TO WORK OUT FINANCIAL ARRANGEMENTS FOR FLOOR WINDER CARE [facility]PC PLACEMENT. Ibrahima Nelson, CASE MANAGEMENT Appended by Ibrahima Nelson on 03/15/2019 14:55 CDT: CM RECEIVED CALL FROM QUEEN ODESSA, , WHO STATED THAT SHE DID NOT KNOW THAT PT HAD TO PARTICIPATE WITH THERAPY FOR INSURANCE TO PAY FOR HIM TO GO TO REHAB. STATES THAT SHE IS COMING TO HOSPITAL THIS AFTERNOON TO SPEAK TO PT AND TELL HIM HE HAS TO PARTIPATE WITH THERAPY SO HE CAN GO TO REHAB AT [facility]. CM EXPLAINED PT IS READY TO DISCHARGE FROM THE HOSPTIAL, STATES SHE DOES NOT WANT PT IN RETIREMENT CARE AND WILL COME AND TELL PT TO PARTICIPATE IN THERAPY AT [facility] SO HE CAN GO TO REHAB AT [facility]. CM NOTIFIED BOWEN TEJADA. CM WAITING ON PT'S SPOUSE TO SPEAK TO HIM IN THE ROOM REGARDING PARTICIPATING WITH HOSPITAL THERAPY SO INSURANCE WILL PAY FOR SKILLED REHAB; PT'S SPOUSE REFUSING FLOOR WINDER CARE AND INSISTING ON SKILLED NUSING REHAB WHICH REQUIRES PT TO PARTICIPATE IN THERAPY SERVICES. CM TO CONTINUE TO FOLLOW AND ASSIST. IBRAHIMA NELSON,CASE MANAGEMENT DCP- Discharge Planning Updated by [id number]: Ibrahiam Nelson on 03/15/19 6:[address] Patient Name: MANA SAXENA Encounter No: [id number] : 1940 Primary Insurance: AETNA MEDICARE PPO or HMO Anticipated DC Date: 02-24-2019 Planned Disposition: Group Home Facility External Planned Provider:[facility], MEDICARE REHAB BED DCP follow-up note: CM NOTIFIED [facility] THAT PT MAY DISCHARGE TO REHAB TODAY. CM FAXED UPDATE WITH THERAPY NOTES TO [facility] [place] AT [phone]. CM WAITING ADMISSION DETERMINATION AND INSURANCE AUTHORIZATION FOR REHAB AT [facility] IN [place]. Ibrahima Nelson, CASE MANAGEMENT DCP- Discharge Planning Updated by [id number]: Ibrahima Nelson on 03/12/19 3:[address] Patient Name: MANA SAXENA Encounter No: [id number] : 1940 Primary Insurance: AETNA MEDICARE PPO or HMO Anticipated DC Date: 02-24-2019 Planned Disposition: Group Home Facility External Planned Provider: [facility], MEDICARE REHAB BED DCP follow-up note: CM RECEIVED CALL FROM [facility]; REFERRAL WAS RECEIVED, PT'S INSURANCE WILL PAY OUT OF NETWORK BENEFITS JUST THE SAME IN NETWORK TO [facility]. PT WILL NEED THERAPY NOTES WITH PATIENT PARTICIPATION TO GET INSURANCE AUTHORIZATION FOR REHAB. PT NEEDS THERAPY NOTES DOCUMENTING PATIENT PARTICIPATION FOR INSURANCE TO AUTHORIZE . CM WAITING ADMISSION DETERMINATION AND INSURANCE AUTHORIZATION FOR REHAB AT [facility]. FATOUMATA Bhatt DCP- Discharge Planning Updated by [id number]: Ibrahima Nelson on 03/11/19 1:[address] Patient Name: MANA SAXENA Encounter No: [id number] : 1940 Primary Insurance: AETNA MEDICARE PPO or HMO Anticipated DC Date: 02-24-2019 Planned Disposition: Group Home Facility External Planned Provider: [facility], MEDICARE REHAB BED DCP follow-up note: CM RECEIVED CALL FROM UBALDO OF [facility], THEY ARE OUT OF INSURANCE NETWORK AND CANNOT ACCEPT PT. CM SPOKE TO PT AND SPOUSE IN ROOM. REPORTS IT IS OK TO SEND REFERRAL TO [facility] AND IF THEY DON'T ACCEPT, ANY IN NETWORK FACILITY WILL HAVE TO DO, JUST NOT [facility]. CHOICE LETTER COMPLETED. QUEEN ODESSA PROVIDED INSURANCE CUSTOMER SERVICES NUMBER OF AND WEBSITE ADDRESS "[email or web address]" FOR CM USE IF NEEDED. CM NOTIFIED [facility] OF REHAB REFERRAL, . CM FAXED REFERRAL TO [facility] [place] AT [phone]. CM WAITING ADMISSION DETERMINATION AND INSURANCE AUTHORIZATION FOR REHAB AT [facility]. FATOUMATA Bhatt DCP- Discharge Planning Updated by [id number]: Ibrahima Nelson on 03/10/19 2:[address] Patient Name: MANA SAXENA Encounter No: [id number] : 1940 Primary Insurance: AETNA MEDICARE PPO or HMO Anticipated DC Date: 02-24-2019 Planned Disposition: Group Home Facility External [facility] DCP follow-up note: CM FAXED UDPATE WITH OT EVALUATION TO [facility]DO AT [facility] AT [phone]. [facility] IS TRYING TO GET APPROVAL FOR OUT OF NETWORK SKILLED REHAB BENEFITS. CM WAITING ADMISSION DETERMINATION FROM [facility] FOR REHAB. PT WILL NEED TO HAVE INSURANCE AUTHORIZATION FOR REHAB SERVICES. FATOUMATA BHATT Appended by Ibrahima Nelson on 03/10/2019 15:03 CDT: CM RECEIVED CALL FROM UBALDO OF [facility], , WHO INFORMED CM THAT THEY ARE STILL TRYING TO CONNECT WITH PT'S INSURANCE COMPANY TO REQUEST AUTHORIZATION OF SERVICES. CM PROVIDED PT'S SOCIAL SECURITY NUMBER AND FAXED UDPATE TO UBALDO AT [facility] AT [phone]. [facility] IS TRYING TO GET APPROVAL FOR OUT OF NETWORK SKILLED REHAB BENEFITS. CM WAITING ADMISSION DETERMINATION FROM [facility] FOR REHAB. PT WILL NEED TO HAVE INSURANCE AUTHORIZATION FOR REHAB SERVICES. IBRAHIMA NELSON CASE MANAGEMENT DCP- Discharge Planning Updated by [id number]: Ibrahima Nelson on 03/09/19 10:[address] Patient Name: MANA SAXENA Encounter No: [id number] : 1940 Primary Insurance: AETNA MEDICARE PPO or HMO Anticipated DC Date: 02-24-2019 Planned Disposition: Group Home Facility External [facility] Provider[facility]AB BED DCP follow-up note: CM REVIEWED CHART, OBTAINED ORDER FOR OCCUPATIONAL THERAPY EVALUATION. CM FA[facility]ED UPD[facility], . CM RECEIVED CALL FROM [facility]BALDO OF [facility], , [facility] IS NOT IN NETWORK WITH PT'S INSURANCE AND THEY HAVE SUBMITTED TO INSURANCE TO SEE IF INSURANCE WILL COVER REHAB AT [facility]. CM WAITING ADMISSION DETERMINATION FROM [facility] AND [facility] FOR REHAB. PT WILL NEED TO HAVE INSURANCE AUTHORIZATION FOR REHAB SERVICES. IBRAHIMA NELSON CASE MANAGEMENT DCP- Discharge Planning Updated by [id number]: Ibrahima Nelson on 03/03/19 9:[address] Patient Name: MANA SAXENA Encounter No: [id number] : 1940 Primary Insurance: AETNA MEDICARE PPO or HMO Anticipated DC Date: 02-24-2019 Planned Disposition: Group Home Facility External Planned Provider[facility], [facility]ICARE REHAB BED DCP follow-up note: CM RECEIVED CALL FROM [facility], UPDATE PROVIDED VIA PHONE; [facility] CANCELLED REFERRAL AND INSTRUCTED CM TO SEND REFERRAL WHEN PT IS BETTER AND IF PT STILL NEEDS INPATIENT REHAB SERVICES. CM WAITING ADMISSION DETERMINATION FROM [facility] FOR REHAB OR RETIREMENT CARE. PT WILL NEED TO HAVE INSURANCE AUTHORIZATION WHEN OCCUPATIONAL THERAPY EVALUATION HAS BEEN COMPLETED AND RECEIVED BY [facility]. FATOUMATA BHATT DCP- Discharge Planning Updated by [id number]: Ibrahima Nelson on 03/02/19 10:[address] Patient Name: MANA SAXENA Encounter No: [id number] : 1940 Primary Insurance: AETNA MEDICARE PPO or HMO Anticipated DC Date: 02-24-2019 Planned Disposition: Inpatient Rehab External Planned Provider: [facility] INPAT[facility] REH[facility] DCP follow-up note: CM RECEIVED CALL FROM IAN [facility], THEY HAVE ACCEPTED MEDICALLY AND WILL SUBMIT TO INSURANCE FOR AUTHORIZATION FOR INPATIENT REHAB SERVICES. CM ADVISED THAT PT HAD MOVED TO ICU THIS MORNING AND THAT PT HAS BEEN REFUSING THERAPY SERVICES AND FURTHER THAT OCCUPATIONAL THERAPY EVALUATION HAS NOT YET BEEN COMPLETED. IAN WILL FOLLOW UP WITH CALL TO PT'S TO DISCUSS COMPLIANCE WITH THERAPY SERVICES TO SEE IF THE SPOUSE CAN SPEAK TO PT. CM WAITING RETURN CALL FROM PT'S SPOUSE, QUEEN ODESSA. [facility] WILL SUBMIT TO PT'S INSURANCE COMPANY FOR INPATIENT REHAB AUTHORIZATION WHEN OCCUPATIONAL THERAPY EVALUATION HAS BEEN COMPLETED AND RECEIVED. CM WAITING ADMISSION DETERMINATION FROM [facility]HAB OR REHAB OR FLOOR WINDER CARE. PT WILL NEED TO HAVE INSURANCE AUTHORIZATION WHEN OCCUPATIONAL THERAPY EVALUATION HAS BEEN COMPLETED AND RECEIVED BY [facility]AC[facility]. FATOUMATA BHATT DCP- Discharge Planning Updated by [id number]: Ibrahima Nelson on 03/01/19 3:[address] Patient Name: MANA SAXENA Encounter No: [id number] : 1940 Primary Insurance: AETNA MEDICARE PPO or HMO Anticipated DC Date: 02-24-2019 Planned Disposition: Inpatient Rehab External Planned Provider: [facility] INPATIENT REHAB DCP follow-up note: CM REVIEWED CHART, OCCUPATIONAL THERAPY EVALUATION HAS STILL NOT BEEN COMPLETED / DOCUMENTED. CM FAXED BASIC REFERRAL TO [facility] FOR INPATIENT REHAB CONSIDERATION AT [phone]. CM TO FAX UPDATE WITH OCCUPATIONAL THERAPY EVALUATION WHEN IT IS COMPLETED AND DOCUMENTED. Ibrahima Nelson CASE MANAGEMENT Appended by Ibrahima Nelson on 03/01/2019 16:14 CDT: CM REVIEWED CHART, PT REFUSED PHYSICAL THERAPY TODAY AND THERAPY HAS SIGNED OFF DUE TO PT REFUSAL. OCCUPATIONAL THERAPY EVALUATION STILL NOT COMPLETED. IT IS CM'S EXPERIENCE THAT INSURANCE WILL NOT PAY FOR REHAB SERVICES UNLESS PT IS PARTICIPATING, WHICH THIS PT IS NOT. CM SPOKE TO PT IN ROOM WHO REPORTS HE DID NOT UNDERSTAND; PT STATES HE IS GOING HOME. WHEN CM EXPLAINED IN SLOW DETAIL THAT PT'S SPOUSE WANTS HIM TO GO TO REHAB, PT YELLS AT THAT SOMETHING MUST BE WRONG AND TO CALL . CM CALLED QUEEN ODESSA, SPOUSE, , LEFT MESSAGE ASKING FOR RETURN CALL. CM FA[facility]ED [facility] [place] THAT THEY CAN GET AUTHORIZATION FOR REHAB WITH PT'S REFUSAL TO DO THERAPY OR AT LEAST CONSIDER FOR RETIREMENT CARE. CM WAITING RETURN CALL FROM PT'S SPOUSE, QUEEN ODESSA. CM WAITING ADMISSION DETERMINATION FROM [facility]AB OR REHAB OR FLOOR WINDER CARE. IBRAHIMA NELSON, CASE MANAGEMENT DCP- Discharge Planning Updated by [id number]: Ibrahima Nelson on 02/26/19 12:[address] Patient Name: MANA SAXENA Encounter No: [id number] : 1940 Primary Insurance: AETNA MEDICARE PPO or HMO Anticipated DC Date: 02-24-2019 Planned Disposition: Inpatient Rehab External Planned Provider: [facility] INPATIENT REHAB DCP follow-up note: CM RECEIVED CALL FROM AYUSH OF [facility]; SHE HAD CALLED PT'S SPOUSE TO ARRANGE DELIVERY OF MANUAL WHEELCHAIR AND SPOUSE REFUSED IT STATING THAT SHE CANNOT PHYSICALLY PUSH PT IN A WHEELCHAIR AND REQEUSTED A POWER CHAIR. CM ATTEMPTED TO SEE PT'S SPOUSE IN ROOM, SHE WAS NOT THERE. CM CALLED QUEEN ODESSA, . CM INFORMED THAT AN ELECTRIC WHEELCHAIR REQUIRES VERY DETAILED AND LENGHTY DOCUMENTATION THAT CANNOT BE DONE FROM HOSPITAL, REFERRED HER TO PT'S PRIMARY CARE DOCTOR. CM DISCUSSED AVAILABILITY OF REHAB SERVICES, PROVIDERS AND LOCATIONS. REPORTS SHE IS OLDER THAN PT AND IS HAVING TROUBLE CARING FOR PT IN HIS WEAKENED STATE AND WOULD LIKE REHAB AT [facility] FIRST CHOICE AND [facility] THIRD BUT WILL NOT CONSIDER [facility] IN [place]. CHOICE LETTER COMPLETED. CHART REVIEWED, PHYSICAL THERAPY EVALUATION STILL PENDING, NO OCCUPATIONAL THERAPY HAD BEEN ORDERED. CM OBTAINED ORDER FOR OCCUPATIONAL THERAPY EVALUATION. CM TO PROVIDE REFERRAL TO [facility] FOR INPATIENT REHAB CONSIDERATION ONCE PHYSICAL AND OCCUPATIONAL THERAPY EVALUATIONS ARE COMPLETED. Ibrahima Nelson, CASE MANAGEMENT DCP- Discharge Planning Updated by [id number]: Ibrahima Nelson on 02/23/19 3:[address] Patient Name: MANA SAXENA Admission Status: ER Accout number: [id number] Admission Date: 02-22-2019 : 1940 Admission Diagnosis: Attending: CASEY NAIDU Current LOS: 1 Anticipated DC Date: 02-24-2019 Planned Disposition: Home with Home Health Primary Insurance: UNINSURED DISCOUNT PLAN PLANNED EXTERNAL PROVIDER: [facility] Discharge Planning Comments: CM RECEIVED ORDER FOR HOME HEALTH. CM MET WITH PT AND SPOUSE IN ROOM TO DISCUSS DISCHARGE PLANNING AND NEEDS. MANA SAXENA provided verbal consent to discuss current and ongoing needs with/in the presence of: SPOUSE, . ANSWERED ALL QUESTIONS. PT LIVING AT HOME DEPENDENTLY WITH SPOUSE WHO ASSISTS WITH MEDICATIONS. PT HAS BEEN GETTING WEAKER AND NOW NEEDS ASSISTANCE WITH BATHING. PT HAS WALKER WITH WHEELS, SEAT AND BRAKES AND NO MEDICAL EQUIPMENT PROVIDER PREFERENCE. PT HAS HOME HEALTH WITH [facility] FOR NURSING AND PHYSICAL THERAPY. CM DISCUSSED AVAILABILITY OF HOME HEALTH, REHAB SERVICES AND MEDICAL EQUIPMENT. PT'S SPOUSE WANTS [facility] RESUMPTION AND REPORTS NEEDING A WHEELCHAIR PT IS NO LONGER ABLE TO CLIMB THE STEPS TO GET ON THE MEDICAID BUS FOR DIALYSIS TRANSPORTATION. PT GOES TO DIALYSIS IN [place] ON MWF SCHEDULE. PT'S FAMILY TO TRANSPORT HOME AT DISCHARGE. CHOICE SIGNED FOR [facility], CHOICE FOR NO PREFERENCE FOR MEDICAL EQUIPMENT PROVIDER COMPLETED BY CM. CM COLLECTED REGISTRATION INFORMATION AND FORWARDED TO [facility] OF REGISTRATION. CM SPOKE TO BOWEN TEJADA WHO PROVIDED ORDER FOR WHEELCHAIR. CM CALLED [facility], , SPOKE TO AYUSH AND PROVIDED REFERRAL INFORMATION FOR WHEELCHAIR. CM FAXED ORDER AND CHART INFORMATION TO [facility] AT [phone]. [facility] TO PROCESS ORDER FOR WHEELCHAIR DELIVERY TO PT IF QUALIFIES; PT'S INSURANCE REQUIRES PRIOR AUTHORIZATION. CM CALLED [facility], , SPOKE TO KURT, PROVIDED REFERRAL INFORMATION, PT IS ON SERVICES WITH [facility] ALREADY.. CM FAXED REFERRAL INFORMATION TO [facility], . FOR DISCHARGE, NOTIFY [facility] AT [phone]; FAX DISCHARGE INFORMATION TO [facility] AT [phone]. Meal Miller: Ibrahima Nelson DCPIA - Discharge Planning Initial Assessment Updated by AMELIA: Ibrahima Nelson on 02/23/19 3:52 pm * Is the patient Alert and Oriented? Yes * How many steps to enter\\exit or inside your home? RAMP * PCP DR. VIC PAREDES IN [place] * Pharmacy [facility] IN [place] * Preadmission Environment Home with Family * ADLs Partial Dependent * Partial ADLs (Assistance needed) Bathing Medication Management * Equipment Rolling Walker * Other Equipment ROLLING WALKER WITH SEAT AND BRAKES NO MEDICAL EQUIPMENT PROVIDER PREFERENCE * List name and contact numbers for known caregivers / representatives who currently or will assist patient after discharge: QUEEN ODESSA, SPOUSE, CADEN ANDERSON, * Verbal permission to speak to the caregivers and representatives has been obtained from the patient. Yes * Community resources currently utilized Home Health * Please name any agencies selected above. [facility], NURSING AND PHYSICAL THERAPY * Additional services required to return to the preadmission environment? No * Can the patient safely return to the preadmission environment? Yes * Has this patient been hospitalized within the prior 30 days at any hospital? Yes Coverage Notice Reviewer: [id number] Edilia Nelson Notice Issued Date-Time: 03/11/2019 15:50 Notice Type: Patient Choice Letter Notice Delivered To: Family Member Relationship to Patient: Spouse Collar Trimmer Name: QUEEN ODESSA Delivery Method: HAND - Hand Delivered Cristina Days: Prior Verbal Notification: Recipient Understood Notice: Yes Recipient Signature: Med Rec Note Co-signed by Attending: Coverage Notice Comment: [facility] OR ANY IN NETWORK [facility] FOR REHAB Reviewer: [id number] Edilia Nelson Notice Issued Date-Time: 02/26/2019 12:00 Notice Type: Patient Choice Letter Notice Delivered To: Family Member Relationship to Patient: Spouse Collar Trimmer Name: QUEEN ODESSA Delivery Method: PHONE - Phone Cristina Days: Prior Verbal Notification: Recipient Understood Notice: Yes Recipient Signature: Med Rec Note Co-signed by Attending: Coverage Notice Comment: [facility]- [facility] 3-[facility]!! Reviewer: [id number] Edilia Nelson Notice Issued Date-Time: 02/23/2019 15:15 Notice Type: Patient Choice Letter Notice Delivered To: Family Member Relationship to Patient: Spouse Collar Trimmer Name: QUEEN ODESSA Delivery Method: HAND - Hand Delivered Cristina Days: Prior Verbal Notification: Recipient Understood Notice: Yes Recipient Signature: Yes Med Rec Note Co-signed by Attending: Coverage Notice Comment: ANY MEDICAL EQUIPMENT COMPANY SERVICING [place] // [facility] Last DP export: 03/18/19 10:37 a Patient Name: MANA SAXENA Page 19219 at 1147 All edits/amendments must be made on the electronic document DICTATION DATE: 03/18/19 1147 CHICKEN PICKER: GRACE 03/18/19 1147 RPT#: [id number] DC DATE: STATUS: ADM IN [facility] [address] [place] [address] END OF REPORT
--- NOTE | 2019-03-18 12:00 | NUR ---
SITTING UP IN RECLINER. CALL LIGHT WITHIN REACH.
--- NOTE | 2019-03-18 13:50 | NUR ---
Nutrition follow-up: Diet: ADA consistent CHO PO Intake ~50% of meals Labs reviewed Pt was walking with PT and was very weak in the knees Wt: 157# (wt is charted @ 72# which is wrong) Will continue to encourage increased po intake and provide food choices and honor food preferences. RDN following.
[2019-03-18 15:39] VITALS: BP 93/57
--- NOTE | 2019-03-18 18:00 | NUR ---
RESTING QUIETLY WITH EYES CLOSED. RESP EVEN,NONLABORED.
--- NOTE | 2019-03-18 19:40 | NUR ---
RESUMING CARE, PT LAYING EYES CLOSED BREATH SOUNDS EVEN UNLABORED CENRAL LINE IN LFT GROIN , LAF LFT ARM RESERVE NO C/O PAIN CL IN REACH WILL CONT O MONITOR
[2019-03-18 20:00] VITALS: BP 102/54
--- NOTE | 2019-03-18 20:30 | NUR ---
PT BS 48 PT EASILY AROUSED PT GIVEN INSTA GLUCOSE PER HYPOGLYCEMIC PROTOCOL
--- NOTE | 2019-03-18 21:32 | NUR ---
BS 87 PT LAYING IN BED EYES CLOSED BREATH SOUNDS EVEN CL IN REACH WILL CONT TO MONITOR
[2019-03-19] VITALS: BP 115/60
--- NOTE | 2019-03-19 00:40 | NUR ---
BS 64 PT GIVEN INSTA GLUCOSE PER HYPOGYLCEMIC PROTOCOL
--- NOTE | 2019-03-19 01:45 | NUR ---
BS 120
--- NOTE | 2019-03-19 02:24 | NUR ---
I have reviewed this patient and I concur with the Shift Assessment completed by the Licensed Practical Nurse today this shift.
[2019-03-19 07:01] LABS: ALBUMIN 2.6 g/dL (3.4-5.0); BILIRUBIN - TOTAL 0.68 mg/dL (0.2-1.3); CALCIUM 8.3 mg/dL (8.5-10.1); CARBON DIOXIDE 21.2 mmol/L (21.0-32.0); PROTEIN - SERUM 6.4 g/dL (6.4-8.2)
[2019-03-19 07:03] LABS: ANION GAP 22.1 mmol/L (8-16); POTASSIUM - SERUM 4.3 mmol/L (3.5-5.1)
--- NOTE | 2019-03-19 07:10 | NUR ---
REPORT RECEIVED FROM BOAT HAND AND PATIENT CARE ASSUMED. PATIENT LAHYING IN BED ON BACK AWAKE AND ALERT. PATIENT IS STABLE AND VSS. PATIENT DENIES ANY NNEDS OR PAIN. WILL CONTINUE WITH PLAN OF CARE. SR UP X 2 BED IN LOW POSITION AND CALL LIGHT IN REACH.
[2019-03-19 07:22] LABS: BASOPHILS 0.2 % (0-2); EOSINOPHILS 0.9 % (0-7); HEMATOCRIT 27.9 % (42.0-54.0); HEMOGLOBIN 8.9 g/dL (13.5-17.5); IMMATURE GRANULOCYTES 0.2 % (0-5); MCH 29.7 pg (26.0-34.0); MCHC 31.9 g/dL (31.0-37.0); MEAN PLATELET VOLUME 10.3 fL (7.4-10.4); MONOCYTES 16.6 % (2-11); NEUTROPHILS 59.1 % (40-80); PLATELET COUNT 165 10x3/uL (130-400); RDW 20.2 % (11.5-14.5); WBC 4.5 10x3/uL (4.8-10.8)
--- NOTE | 2019-03-19 07:45 | NUR ---
PATIENT UP TO BS CHAIR FOR BREAKFAST WITH PT ASSISTING. CALL LIGHT IN REACH. WILL CONTINUE TO MONITOR.
--- NOTE | 2019-03-19 07:57 | MORECARE ---
CASE MANAGEMENT DISCHARGE SUMMARY PATIENT: MANA SAXENA UNIT: [id number] ADM DATE: 02/24/19 AGE: 78 : 38 SEX: M ROOM/BED: D.2107 AUTHOR: BJ,DOC PHYSICIAN: REFERRING PHYSICIAN: CASEY NAIDU MD DATE OF SERVICE: 03/19/19 Discharge Plan Patient Name: MANA SAXENA Facility: [facility]:[place] : 1940 Planned Disposition: Nursing Facility [facility] Cert Anticipated Discharge Date: 03/22/19 Discharge Date: Expected LOS: 26 Initial Reviewer: [email or web address] Initial Review Date: 02/22/2019 Generated: 03/19/19 8:57 am Comments DCP- Discharge Planning Updated by [id number]: Ibrahima Nelson on 03/19/19 6:[address] Patient Name: MANA SAXENA Encounter No: [id number] : 1940 Primary Insurance: AETNA MEDICARE PPO or HMO Anticipated DC Date: 03-22-2019 Planned Disposition: Nursing Facility [facility] Cert External Planned Provider: [facility], MEDICARE REHAB BED DCP follow-up note: CM FAXED UPDATE TO [facility], . PT'S SPOUSE REFUSING RETIREMENT CARE AND INSISTING ON SKILLED NUSING REHAB. [facility] NOW WANTS NEW BLOOD CULTURE RESULT SHOWING NO INFECTION PRIOR TO SENDING TO INSURANCE FOR AUTHORIZATION. CM WAITING BLOOD CULTURE RESULT. IBRAHIMA NELSON,CASE VERO DCP- Discharge Planning Updated by [id number]: Ibrahima Nelson on 03/18/19 10:[address] Patient Name: MANA SAXENA Encounter No: [id number] : 1940 Primary Insurance: AETNA MEDICARE PPO or HMO Anticipated DC Date: 03-22-2019 Planned Disposition: Nursing Facility [facility] Cert External Planned Provider: [facility], MEDICARE REHAB BED DCP follow-up note: CM FAXED UPDATE TO [facility], . CM RECEIVED MESSAGE FROM PUJA WHO INFORMED THAT [facility] PLANS TO ACCEPT BUT WILL NOT SEND FOR INSURANCE AUTHORIZATION OR MAKE FINAL ADMISSION DETERMINATION UNTIL NEW BLOOD CULTURE IS DONE TO SHOW PT IS CLEAR OF INFECTION. CM NOTIFIED API PRODUCT MANAGER TERRELL. CM MET WITH PT AND FAMILY, DISCUSSED ABOVE. PT'S SPOUSE REFUSING RETIREMENT CARE AND INSISTING ON SKILLED NUSING REHAB. [facility] NOW WANTS NEW BLOOD CULTURE RESULT SHOWING NO INFECTION PRIOR TO SENDING TO INSURANCE FOR AUTHORIZATION. CM WAITING BLOOD CULTURE RESULT. IBRAHIMA NELSONCASE MANAGEMENT DCP- Discharge Planning Updated by [id number]: Ibrahima Nelson on 03/17/19 7:[address] Patient Name: MANA SAXENA Encounter No: [id number] : 1940 Primary Insurance: AETNA MEDICARE PPO or HMO Anticipated DC Date: 03-15-2019 Planned Disposition: Nursing Facility [facility] Cert External Planned Provider: [facility], MEDICARE REHAB BED DCP follow-up note: CM FAXED UPDATE TO [facility], . PT'S SPOUSE REFUSING WEB APPLICATIONS ADMINISTRATOR CARE AND INSISTING ON SKILLED NUSING REHAB WHICH REQUIRES PT TO PARTICIPATE IN THERAPY SERVICES. [facility] WILL HAVE ENOUGH PARTICIPATION TO SECURE INSURANCE AUTHORIZATION FOR REHAB PLACEMENT AT [facility]. IBRAHIMA NELSONCASE MANAGEMENT DCP- Discharge Planning Updated by [id number]: Ibrahima Nelson on 03/16/19 3:[address] Patient Name: MANA SAXENA Encounter No: [id number] : 1940 Primary Insurance: AETNA MEDICARE PPO or HMO Anticipated DC Date: 03-15-2019 Planned Disposition: Nursing Facility [facility] Cert External Planned Provider: [facility], LONG TERM CARE MEDICAID BED DCP follow-up note: CM FAXED UPDATE TO [facility], . PT'S SPOUSE REFUSING RETIREMENT CARE AND INSISTING ON SKILLED NUSING REHAB WHICH REQUIRES PT TO PARTICIPATE IN THERAPY SERVICES. CM TO SEND THERAPY UPDATE TOMORROW, [facility] WILL HAVE ENOUGH PARTICIPATION TO SECURE REHAB PLACEMENT AT [facility]. IBRAHIMA NELSONCASE MANAGEMENT DCP- Discharge Planning Updated by [id number]: Ibrahima Nelson on 03/15/19 1:[address] Patient Name: MANA SAXENA Encounter No: [id number] : 1940 Primary Insurance: AETNA MEDICARE PPO or HMO Anticipated DC Date: 03-15-2019 Planned Disposition: Nursing Facility [facility] Cert External Planned Provider: [facility] MEDICAID BED DCP follow-up note: CM RECEIVED MESSAGE FROM [facility], PT'S INSURANCE WILL NOT APPROVE REHAB SERVICES PT HAS BEEN REFUSING THERAPY. [facility] WILL ACCEPT FOR WEB APPLICATIONS ADMINISTRATOR CARE IF PT'S FAMILY AGREES AND WILL WORK OUT FINANCIAL ARRANGEMENTS. CM CALLED AND NOTIFIED QUEEN ODESSA AT [phone] WHO INFORMED CM THAT SHE IS NOT ABLE TO TAKE CARE OF PT AT HOME BY HERSELF AND WILL DISCUSS WEB APPLICATIONS ADMINISTRATOR CARE ARRANGEMENTS WITH [facility]. CM NOTIFIED PUJA [facility]. [facility] TIMBER GIRDLER CALLING PT'S NOW TO DISCUSS FINANCIAL ARRANGEMENTS FOR RETIREMENT CARE PLACEMENT. CM WAITING FAMILY AND [facility] TO WORK OUT FINANCIAL ARRANGEMENTS FOR WEB APPLICATIONS ADMINISTRATOR CARE [facility] PLACEMENT. Ibrahima Nelson, CASE MANAGEMENT Appended by Ibrahima Nelson on 03/15/2019 14:55 CDT: HODA RECEIVED CALL FROM QUEEN ODESSA, , WHO STATED THAT SHE DID NOT KNOW THAT PT HAD TO PARTICIPATE WITH THERAPY FOR INSURANCE TO PAY FOR HIM TO GO TO REHAB. STATES THAT SHE IS COMING TO HOSPITAL THIS AFTERNOON TO SPEAK TO PT AND TELL HIM HE HAS TO PARTIPATE WITH THERAPY SO HE CAN GO TO REHAB AT [facility]. HODA EXPLAINED PT IS READY TO DISCHARGE FROM THE [facility], STATES SHE DOES NOT WANT PT IN RETIREMENT CARE AND WILL COME AND TELL PT TO PARTICIPATE IN THERAPY AT [facility] SO HE CAN GO TO REHAB AT [facility]. HODA NOTIFIED BOWEN TEJADA. CM WAITING ON PT'S SPOUSE TO SPEAK TO HIM IN THE ROOM REGARDING PARTICIPATING WITH HOSPITAL THERAPY SO INSURANCE WILL PAY FOR SKILLED REHAB; PT'S SPOUSE REFUSING RETIREMENT CARE AND INSISTING ON SKILLED NUSING REHAB WHICH REQUIRES PT TO PARTICIPATE IN THERAPY SERVICES. CM TO CONTINUE TO FOLLOW AND ASSIST. IBRAHIMA NELSON,CASE MANAGEMENT DCP- Discharge Planning Updated by [id number]: Ibrahima Nelson on 03/15/19 6:[address] Patient Name: MANA SAXENA Encounter No: [id number] : 1940 Primary Insurance: AETNA MEDICARE PPO or HMO Anticipated DC Date: 02-24-2019 Planned Disposition: Senior Living Facility External Planned Provider:[facility], MEDICARE REHAB BED DCP follow-up note: CM NOTIFIED PUJA [facility] THAT PT MAY DISCHARGE TO REHAB TODAY. CM FAXED UPDATE WITH THERAPY NOTES TO [facility] VIA PUJA AT [phone]. CM WAITING ADMISSION DETERMINATION AND INSURANCE AUTHORIZATION FOR REHAB AT [facility]. FATOUMATA Bhatt MANAGEMENT DCP- Discharge Planning Updated by [id number]: Ibrahima Nelson on 03/12/19 3:[address] Patient Name: MANA SAXENA Encounter No: [id number] : 1940 Primary Insurance: AETNA MEDICARE PPO or HMO Anticipated DC Date: 02-24-2019 Planned Disposition: Senior Living Facility External Planned Provider: [facility], MEDICARE REHAB BED DCP follow-up note: CM RECEIVED CALL FROM PUJA [facility]; REFERRAL WAS RECEIVED, PT'S INSURANCE WILL PAY OUT OF NETWORK BENEFITS JUST THE SAME IN NETWORK TO [facility]. PT WILL NEED THERAPY NOTES WITH PATIENT PARTICIPATION TO GET INSURANCE AUTHORIZATION FOR REHAB. PT NEEDS THERAPY NOTES DOCUMENTING PATIENT PARTICIPATION FOR INSURANCE TO AUTHORIZE . CM WAITING ADMISSION DETERMINATION AND INSURANCE AUTHORIZATION FOR REHAB AT [facility]. FATOUMATA Bhatt DCP- Discharge Planning Updated by [id number]: Ibrahima Nelson on 03/11/19 1:[address] Patient Name: MANA SAXENA Encounter No: [id number] : 1940 Primary Insurance: AETNA MEDICARE PPO or HMO Anticipated DC Date: 02-24-2019 Planned Disposition: Senior Living Facility External Planned Provider: [facility], MEDICARE REHAB BED DCP follow-up note: CM RECEIVED CALL FROM DAV[facility], THEY ARE OUT OF INSURANCE NETWORK AND CANNOT ACCEPT PT. CM SPOKE TO PT AND SPOUSE IN ROOM. WANG REPORTS IT IS OK TO SEND REFERRAL TO [facility] AND IF THEY DON'T ACCEPT, ANY IN NETWORK FACILITY WILL HAVE TO DO, JUST NOT [facility]. CHOICE LETTER COMPLETED. QUEEN ODESSA PROVIDED INSURANCE CUSTOMER SERVICES NUMBER OF AND WEBSITE ADDRESS "[email or web address]" FOR CM USE IF NEEDED. CM NOTIFIED [facility] OF REHAB REFERRAL, . CM FAXED REFERRAL TO [facility] VIA PUJA AT [phone]. CM WAITING ADMISSION DETERMINATION AND INSURANCE AUTHORIZATION FOR REHAB AT [facility]. Ibrahima [facility], CASE MANAGEMENT DCP- Discharge Planning Updated by [id number]: Ibrahima Nelson on 03/10/19 2:[address] Patient Name: MANA SAXENA Encounter No: [id number] : 1940 Primary Insurance: AETNA MEDICARE PPO or HMO Anticipated DC Date: 02-24-2019 Planned Disposition: Senior Living Facility External Planned Provider:[facility], MEDICARE REHAB BED DCP follow-up note: CM FAXED UDPATE WITH OT EVALUATION TO UBALDO AT [facility] AT [phone]. [facility] IS TRYING TO GET APPROVAL FOR OUT OF NETWORK SKILLED REHAB BENEFITS. CM WAITING ADMISSION DETERMINATION FROM [facility] AND REHAB FOR REHAB. PT WILL NEED TO HAVE INSURANCE AUTHORIZATION FOR REHAB SERVICES. IBRAHIMA NELSON CASE MANAGEMENT Appended by Ibrahima Nelson on 03/10/2019 15:03 CDT: CM RECEIVED CALL FROM [facility], , WHO INFORMED CM THAT THEY ARE STILL TRYING TO CONNECT WITH PT'S INSURANCE COMPANY TO REQUEST AUTHORIZATION OF SERVICES. CM PROVIDED PT'S SOCIAL SECURITY NUMBER AND FAXED UDPATE TO UBALDO AT [facility] AT [phone]. [facility] IS TRYING TO GET APPROVAL FOR OUT OF NETWORK SKILLED REHAB BENEFITS. CM WAITING ADMISSION DETERMINATION FROM [facility] AND REHAB FOR REHAB. PT WILL NEED TO HAVE INSURANCE AUTHORIZATION FOR REHAB SERVICES. FATOUMATA BHATT DCP- Discharge Planning Updated by [id number]: Ibrahima Nelson on 03/09/19 10:[address] Patient Name: MANA SAXENA Encounter No: [id number] : 1940 Primary Insurance: AETNA MEDICARE PPO or HMO Anticipated DC Date: 02-24-2019 Planned Disposition: Senior Living Facility External Planned Provider:[facility], MEDICARE REHAB BED DCP follow-up note: CM REVIEWED CHART, OBTAINED ORDER FOR OCCUPATIONAL THERAPY EVALUATION. CM FAXED UPDATED REFERRAL TO [facility] AND [facility], . CM RECEIVED CALL FROM [facility], , [facility] IS NOT IN NETWORK WITH PT'S INSURANCE AND THEY HAVE SUBMITTED TO INSURANCE TO SEE IF INSURANCE WILL COVER REHAB AT [facility]. CM WAITING ADMISSION DETERMINATION FROM [facility] AND REHAB FOR REHAB. PT WILL NEED TO HAVE INSURANCE AUTHORIZATION FOR REHAB SERVICES. IBRAHIMA NELSON CASE MANAGEMENT DCP- Discharge Planning Updated by [id number]: Ibrahima Nelson on 03/03/19 9:[address] Patient Name: MANA SAXENA Encounter No: [id number] : [birth year] Primary Insurance: AETNA MEDICARE PPO or HMO Anticipated DC Date: 02-24-2019 Planned Disposition: Senior Living Facility External Planned Provider: [facility] DCP follow-up note: CM RECEIVED CALL FROM [facility], UPDATE PROVIDED VIA PHONE; DOUGLAS CANCELLED REFERRAL AND INSTRUCTED CM TO SEND REFERRAL WHEN PT IS BETTER AND IF PT STILL NEEDS INPATIENT REHAB SERVICES. CM WAITING ADMISSION DETERMINATION FROM [facility] FOR [facility] OR WEB APPLICATIONS ADMINISTRATOR CARE. PT WILL NEED TO HAVE INSURANCE AUTHORIZATION WHEN OCCUPATIONAL THERAPY EVALUATION HAS BEEN COMPLETED AND RECEIVED BY PENITENTIARY FACILITY. IBRAHIMA NELSON CASE MANAGEMENT DCP- Discharge Planning Updated by [id number]: Ibrahima Nelson on 03/02/19 10:[address] Patient Name: MANA SAXENA Encounter No: [id number] : 1940 Primary Insurance: AETNA MEDICARE PPO or HMO Anticipated DC Date: 02-24-2019 Planned Disposition: Inpatient Rehab External Planned Provider: [facility] INPATIENT REHAB DCP follow-up note: CM RECEIVED CALL FROM [facility], THEY HAVE ACCEPTED MEDICALLY AND WILL SUBMIT TO INSURANCE FOR AUTHORIZATION FOR INPATIENT REHAB SERVICES. CM ADVISED THAT PT HAD MOVED TO ICU THIS MORNING AND THAT PT HAS BEEN REFUSING THERAPY SERVICES AND FURTHER THAT OCCUPATIONAL THERAPY EVALUATION HAS NOT YET BEEN COMPLETED. IAN WILL FOLLOW UP WITH CALL TO PT'S TO DISCUSS COMPLIANCE WITH THERAPY SERVICES TO SEE IF THE SPOUSE CAN SPEAK TO PT. CM WAITING RETURN CALL FROM PT'S SPOUSE, QUEEN ODESSA. [facility] WILL SUBMIT TO PT'S INSURANCE COMPANY FOR INPATIENT REHAB AUTHORIZATION WHEN OCCUPATIONAL THERAPY EVALUATION HAS BEEN COMPLETED AND RECEIVED. CM WAITING ADMISSION DETERMINATION FROM [facility] AND REHAB OR REHAB OR WEB APPLICATIONS ADMINISTRATOR CARE. PT WILL NEED TO HAVE INSURANCE AUTHORIZATION WHEN OCCUPATIONAL THERAPY EVALUATION HAS BEEN COMPLETED AND RECEIVED BY PENITENTIARY FACILITY. IBRAHIMA NELSON CASE MANAGEMENT DCP- Discharge Planning Updated by [id number]: Ibrahima Nelson on 03/01/19 3:[address] Patient Name: MANA SAXENA Encounter No: [id number] : 1940 Primary Insurance: AETNA MEDICARE PPO or HMO Anticipated DC Date: 02-24-2019 Planned Disposition: Inpatient Rehab External Planned Provider: [facility] INPATIENT REHAB DCP follow-up note: CM REVIEWED CHART, OCCUPATIONAL THERAPY EVALUATION HAS STILL NOT BEEN COMPLETED / DOCUMENTED. CM FAXED BASIC REFERRAL TO [facility] FOR INPATIENT REHAB CONSIDERATION AT [phone]. CM TO FAX UPDATE WITH OCCUPATIONAL THERAPY EVALUATION WHEN IT IS COMPLETED AND DOCUMENTED. Ibrahima Nelson CASE MANAGEMENT Appended by Ibrahima Nelson on 03/01/2019 16:14 CDT: CM REVIEWED CHART, PT REFUSED PHYSICAL THERAPY TODAY AND THERAPY HAS SIGNED OFF DUE TO PT REFUSAL. OCCUPATIONAL THERAPY EVALUATION STILL NOT COMPLETED. IT IS CM'S EXPERIENCE THAT INSURANCE WILL NOT PAY FOR REHAB SERVICES UNLESS PT IS PARTICIPATING, WHICH THIS PT IS NOT. CM SPOKE TO PT IN ROOM WHO REPORTS HE DID NOT UNDERSTAND; PT STATES HE IS GOING HOME. WHEN CM EXPLAINED IN SLOW DETAIL THAT PT'S SPOUSE WANTS HIM TO GO TO REHAB, PT YELLS AT THAT SOMETHING MUST BE WRONG AND TO CALL WANG. CM CALLED QUEEN ODESSA, SPOUSE, , LEFT MESSAGE ASKING FOR RETURN CALL. CM FAXED REFERRAL TO [facility] IN [place] THAT THEY CAN GET AUTHORIZATION FOR REHAB WITH PT'S REFUSAL TO DO THERAPY OR AT LEAST CONSIDER FOR WEB APPLICATIONS ADMINISTRATOR CARE. CM WAITING RETURN CALL FROM PT'S SPOUSE, QUEEN ODESSA. CM WAITING ADMISSION DETERMINATION FROM [facility] AND REHAB OR REHAB OR RETIREMENT CARE. IBRAHIMA NELSON, CASE MANAGEMENT DCP- Discharge Planning Updated by [id number]: Ibrahima Nelson on 02/26/19 12:[address] Patient Name: MANA SAXENA Encounter No: [id number] : 1940 Primary Insurance: AETNA MEDICARE PPO or HMO Anticipated DC Date: 02-24-2019 Planned Disposition: Inpatient Rehab External Planned Provider: [facility] INPATIENT REHAB DCP follow-up note: CM RECEIVED CALL FROM AYUSH [facility]; SHE HAD CALLED PT'S SPOUSE TO ARRANGE DELIVERY OF MANUAL WHEELCHAIR AND SPOUSE REFUSED IT STATING THAT SHE CANNOT PHYSICALLY PUSH PT IN A WHEELCHAIR AND REQEUSTED A POWER CHAIR. CM ATTEMPTED TO SEE PT'S SPOUSE IN ROOM, SHE WAS NOT THERE. CM CALLED QUEEN ODESSA, . CM INFORMED THAT AN ELECTRIC WHEELCHAIR REQUIRES VERY DETAILED AND LENGHTY DOCUMENTATION THAT CANNOT BE DONE FROM HOSPITAL, REFERRED HER TO PT'S PRIMARY CARE DOCTOR. CM DISCUSSED AVAILABILITY OF REHAB SERVICES, PROVIDERS AND LOCATIONS. REPORTS SHE IS OLDER THAN PT AND IS HAVING TROUBLE CARING FOR PT IN HIS WEAKENED STATE AND WOULD LIKE REHAB AT [facility] FIRST CHOICE AND [facility] SECOND, [facility] THIRD BUT WILL NOT CONSIDER [place] IN [place]. CHOICE LETTER COMPLETED. CHART REVIEWED, PHYSICAL THERAPY EVALUATION STILL PENDING, NO OCCUPATIONAL THERAPY HAD BEEN ORDERED. CM OBTAINED ORDER FOR OCCUPATIONAL THERAPY EVALUATION. CM TO PROVIDE REFERRAL TO [facility] FOR INPATIENT REHAB CONSIDERATION ONCE PHYSICAL AND OCCUPATIONAL THERAPY EVALUATIONS ARE COMPLETED. Ibrahima Nelson, CASE MANAGEMENT DCP- Discharge Planning Updated by [id number]: Ibrahima Nelson on 02/23/19 3:[address] Patient Name: MANA SAXENA Admission Status: ER Accout number: [id number] Admission Date: 02-22-2019 : 1940 Admission Diagnosis: Attending: CASEY NAIDU Current LOS: 1 Anticipated DC Date: 02-24-2019 Planned Disposition: Home with Home Health Primary Insurance: UNINSURED DISCOUNT PLAN PLANNED EXTERNAL PROVIDER: [facility] Discharge Planning Comments: CM RECEIVED ORDER FOR HOME HEALTH. CM MET WITH PT AND SPOUSE IN ROOM TO DISCUSS DISCHARGE PLANNING AND NEEDS. MANA SAXENA provided verbal consent to discuss current and ongoing needs with/in the presence of: SPOUSE, . ANSWERED ALL QUESTIONS. PT LIVING AT HOME DEPENDENTLY WITH SPOUSE WHO ASSISTS WITH MEDICATIONS. PT HAS BEEN GETTING WEAKER AND NOW NEEDS ASSISTANCE WITH BATHING. PT HAS WALKER WITH WHEELS, SEAT AND BRAKES AND NO MEDICAL EQUIPMENT PROVIDER PREFERENCE. PT HAS HOME HEALTH WITH [facility] FOR NURSING AND PHYSICAL THERAPY. CM DISCUSSED AVAILABILITY OF HOME HEALTH, REHAB SERVICES AND MEDICAL EQUIPMENT. PT'S SPOUSE WANTS [facility] RESUMPTION AND REPORTS NEEDING A WHEELCHAIR PT IS NO LONGER ABLE TO CLIMB THE STEPS TO GET ON THE MEDICAID BUS FOR DIALYSIS TRANSPORTATION. PT GOES TO DIALYSIS IN [place] ON MWF SCHEDULE. PT'S FAMILY TO TRANSPORT HOME AT DISCHARGE. CHOICE SIGNED FOR [facility], CHOICE FOR NO PREFERENCE FOR MEDICAL EQUIPMENT PROVIDER COMPLETED BY HODA. CM COLLECTED REGISTRATION INFORMATION AND FORWARDED TO [place] OF REGISTRATION. CM SPOKE TO BOWEN TEJADA WHO PROVIDED ORDER FOR WHEELCHAIR. CM CALLED [facility], , SPOKE TO AYUSH AND PROVIDED REFERRAL INFORMATION FOR WHEELCHAIR. CM FAXED ORDER AND CHART INFORMATION TO [facility] AT [phone]. [facility] TO PROCESS ORDER FOR WHEELCHAIR DELIVERY TO PT IF QUALIFIES; PT'S INSURANCE REQUIRES PRIOR AUTHORIZATION. CM CALLED [facility], , SPOKE TO KURT, PROVIDED REFERRAL INFORMATION, PT IS ON SERVICES WITH [facility]READ[facility].. CM FAXED REFERRAL INFORMATION TO [facility], . FOR DISCHARGE, NOTIFY [facility] AT [phone]; FAX DISCHARGE INFORMATION TO [facility] AT [phone]. Pcb Design Engineer: Ibrahima Nelson DCPIA - Discharge Planning Initial Assessment Updated by [id number]: Ibrahima Nelson on 02/23/19 3:52 pm * Is the patient Alert and Oriented? Yes * How many steps to enter\\exit or inside your home? RAMP * PCP DR. VIC PAREDES IN [place] * Pharmacy [facility] [place] * Preadmission Environment Home with Family * ADLs Partial Dependent * Partial ADLs (Assistance needed) Bathing Medication Management * Equipment Rolling Walker * Other Equipment ROLLING WALKER WITH SEAT AND BRAKES NO MEDICAL EQUIPMENT PROVIDER PREFERENCE * List name and contact numbers for known caregivers / representatives who currently or will assist patient after discharge: QUEEN ODESSA, SPOUSE, IDRIS SAXENA, NIECE, * Verbal permission to speak to the caregivers and representatives has been obtained from the patient. Yes * Community resources currently utilized Home Health * Please name any agencies selected above. [facility], NURSING AND PHYSICAL THERAPY * Additional services required to return to the preadmission environment? No * Can the patient safely return to the preadmission environment? Yes * Has this patient been hospitalized within the prior 30 days at any hospital? Yes Coverage Notice Reviewer: [id number] - Ibrahima Nelson Notice Issued Date-Time: 02/23/2019 15:15 Notice Type: Patient Choice Letter Notice Delivered To: Family Member Relationship to Patient: Spouse Hydrochloric Area Supervisor Name: QUEEN ODESSA Delivery Method: HAND - Hand Delivered Cristina Days: Prior Verbal Notification: Recipient Understood Notice: Yes Recipient Signature: Yes Med Rec Note Co-signed by Attending: Coverage Notice Comment: ANY MEDICAL EQUIPMENT COMPANY SERVICING [place] // [facility] Reviewer: [id number] Edilia Nelson Notice Issued Date-Time: 02/26/2019 12:00 Notice Type: Patient Choice Letter Notice Delivered To: Family Member Relationship to Patient: Spouse Hydrochloric Area Supervisor Name: QUEEN ODESSA Delivery Method: PHONE - Phone Cristina Days: Prior Verbal Notification: Recipient Understood Notice: Yes Recipient Signature: Med Rec Note Co-signed by Attending: Coverage Notice Comment: [facility]- [facility] Reviewer: [id number] Edilia Nelson Notice Issued Date-Time: 03/11/2019 15:50 Notice Type: Patient Choice Letter Notice Delivered To: Family Member Relationship to Patient: Spouse Hydrochloric Area Supervisor Name: QUEEN ODESSA Delivery Method: HAND - Hand Delivered Cristina Days: Prior Verbal Notification: Recipient Understood Notice: Yes Recipient Signature: Med Rec Note Co-signed by Attending: Coverage Notice Comment: [facility] OR ANY IN NETWORK PENITENTIARY FOR REHAB Last DP export: 03/18/19 10:47 a Patient Name: MANA SAXENA Page [id number] at 0757 All edits/amendments must be made on the electronic document DICTATION DATE: 03/19/19755 CONCRETE SAW OPERATOR: GRACE 03/19/19 075 RPT#: [id number] DC DATE: STATUS: ADM IN [facility] [address] [place] [address] END OF REPORT
[2019-03-19 09:38] VITALS: BP 126/69
--- NOTE | 2019-03-19 11:30 | NUR ---
PATIENT IS STABLE AND VSS. PATIENT TO DIALYSIS VIA HOSPITAL BED AND HOSPITAL PERSONNEL.
--- NOTE | 2019-03-19 15:30 | NUR ---
PATIENT RETURNED FROM DIALYSIS VIA HOSPITAL BED AND HOSPITAL PERSONNEL. PATIENT IS STABLE AND VSS. PATIENT DENIES ANY NEEDS OR PAIN. WILL CONTINUE TO MONITOR.
--- NOTE | 2019-03-19 17:46 | MORECARE ---
CASE MANAGEMENT DISCHARGE SUMMARY PATIENT: MANA SAXENA UNIT: [id number] ADM DATE: 02/24/19 AGE: 78 : 38 SEX: M ROOM/BED: D.2103 AUTHOR: BJDOC PHYSICIAN: REFERRING PHYSICIAN: CASEY NAIDU MD DATE OF SERVICE: 03/19/19 Discharge Plan Patient Name: MANA SAXENA Facility: [facility]:[place] : 1940 Planned Disposition: Nursing Facility [facility] Cert Anticipated Discharge Date: 03/22/19 Discharge Date: Expected LOS: 26 Initial Reviewer: [id number] Initial Review Date: 02/22/2019 Generated: 03/19/19 6:46 pm Comments DCP- Discharge Planning Updated by [id number]: Ibrahima Nelson on 03/19/19 4:[address] Patient Name: MANA SAXENA Encounter No: [id number] : 1940 Primary Insurance: AETNA MEDICARE PPO or HMO Anticipated DC Date: 03-22-2019 Planned Disposition: Nursing Facility [facility] Cert External Planned Provider: [facility], MEDICARE REHAB BED DCP follow-up note: HODA FAXED UPDATE TO PUJA OF [facility], . PT'S SPOUSE REFUSING DETENTION CARE AND INSISTING ON SKILLED NUSING REHAB. [facility] NOW WANTS NEW BLOOD CULTURE RESULT SHOWING NO INFECTION PRIOR TO SENDING TO INSURANCE FOR AUTHORIZATION. CM WAITING BLOOD CULTURE RESULT. IBRAHIMA NELSONCASE MANAGEMENT Appended by Ibrahima Nelson on 03/19/2019 17:40 CDT: OHDA FAXED PRELIMINARY BLOOD CULTURE RESULT OF NEGATIVE ON DAY ONE TO [facility] VIA [employer] AT [phone]. PT'S SPOUSE REFUSING DETENTION CARE AND INSISTING ON SKILLED NUSING REHAB. [facility] NOW WANTS NEW BLOOD CULTURE RESULT SHOWING NO INFECTION PRIOR TO SENDING TO INSURANCE FOR AUTHORIZATION. CM WAITING FINAL BLOOD CULTURE RESULT. FATOUMATA BHATT DCP- Discharge Planning Updated by [id number]: Ibarhima Nelson on 03/18/19 10:[address] Patient Name: MANA SAXENA Encounter No: [id number] : 1940 Primary Insurance: AETNA MEDICARE PPO or HMO Anticipated DC Date: 03-22-2019 Planned Disposition: Nursing Facility [facility] Cert External Planned Provider: [facility], MEDICARE REHAB BED DCP follow-up note: CM FAXED UPDATE TO [facility], . CM RECEIVED MESSAGE FROM PUJA WHO INFORMED THAT [facility] PLANS TO ACCEPT BUT WILL NOT SEND FOR INSURANCE AUTHORIZATION OR MAKE FINAL ADMISSION DETERMINATION UNTIL NEW BLOOD CULTURE IS DONE TO SHOW PT IS CLEAR OF INFECTION. CM NOTIFIED BOWEN TEJADA. CM MET WITH PT AND FAMILY, DISCUSSED ABOVE. PT'S SPOUSE REFUSING REGENERATOR OPERATOR CARE AND INSISTING ON SKILLED NUSING REHAB. [facility] NOW WANTS NEW BLOOD CULTURE RESULT SHOWING NO INFECTION PRIOR TO SENDING TO INSURANCE FOR AUTHORIZATION. CM WAITING BLOOD CULTURE RESULT. IBRAHIMA NELSON,CASE MANAGEMENT DCP- Discharge Planning Updated by [id number]: Ibrahima Nelson on 03/17/19 7:[address] Patient Name: MANA SAXENA Encounter No: [id number] : 1940 Primary Insurance: AETNA MEDICARE PPO or HMO Anticipated DC Date: 03-15-2019 Planned Disposition: Nursing Facility [facility] Cert External Planned Provider: [facility], MEDICARE REHAB BED DCP follow-up note: CM FAXED UPDATE TO [facility], . PT'S SPOUSE REFUSING REGENERATOR OPERATOR CARE AND INSISTING ON SKILLED NUSING REHAB WHICH REQUIRES PT TO PARTICIPATE IN THERAPY SERVICES. [facility] WILL HAVE ENOUGH PARTICIPATION TO SECURE INSURANCE AUTHORIZATION FOR REHAB PLACEMENT AT [facility]. IBRAHIMA NELSONCASE MANAGEMENT DCP- Discharge Planning Updated by [id number]: Ibrahima Nelson on 03/16/19 3:[address] Patient Name: MANA SAXENA Encounter No: [id number] : 1940 Primary Insurance: AETNA MEDICARE PPO or HMO Anticipated DC Date: 03-15-2019 Planned Disposition: Nursing Facility [facility] Cert External Planned Provider: [facility] TERM CARE MEDICAID BED DCP follow-up note: CM FAXED UPDATE TO [facility], . PT'S SPOUSE REFUSING REGENERATOR OPERATOR CARE AND INSISTING ON SKILLED NUSING REHAB WHICH REQUIRES PT TO PARTICIPATE IN THERAPY SERVICES. CM TO SEND THERAPY UPDATE TOMORROW, [facility] WILL HAVE ENOUGH PARTICIPATION TO SECURE REHAB PLACEMENT AT [facility]. IBRAHIMA NELSONCASE MANAGEMENT DCP- Discharge Planning Updated by [id number]: Ibrahima Nelson on 03/15/19 1:[address] Patient Name: MANA SAXENA Encounter No: [id number] : 1940 Primary Insurance: AETNA MEDICARE PPO or HMO Anticipated DC Date: 03-15-2019 Planned Disposition: Nursing Facility [facility] Cert External Planned Provider: [facility], LONG TERM CARE MEDICAID BED DCP follow-up note: HODA RECEIVED MESSAGE FROM PUJA [facility], PT'S INSURANCE WILL NOT APPROVE REHAB SERVICES PT HAS BEEN REFUSING THERAPY. [facility] WILL ACCEPT FOR DETENTION CARE IF PT'S FAMILY AGREES AND WILL WORK OUT FINANCIAL ARRANGEMENTS. CM CALLED AND NOTIFIED QUEEN ODESSA AT [phone] WHO INFORMED CM THAT SHE IS NOT ABLE TO TAKE CARE OF PT AT HOME BY HERSELF AND WILL DISCUSS REGENERATOR OPERATOR CARE ARRANGEMENTS WITH [facility]. HODA NOTIFIED PUJA [facility]. [facility] HOSPICE CLINICAL MARKETER CALLING PT'S NOW TO DISCUSS FINANCIAL ARRANGEMENTS FOR REGENERATOR OPERATOR CARE PLACEMENT. CM WAITING FAMILY AND LONG-TERM TO WORK OUT FINANCIAL ARRANGEMENTS FOR REGENERATOR OPERATOR CARE LONG-TERM PLACEMENT. Ibrahima Nelson, CASE MANAGEMENT Appended by Ibrahima Nelson on 03/15/2019 14:55 CDT: HODA RECEIVED CALL FROM QUEEN ODESSA, , WHO STATED THAT SHE DID NOT KNOW THAT PT HAD TO PARTICIPATE WITH THERAPY FOR INSURANCE TO PAY FOR HIM TO GO TO REHAB. WANG STATES THAT SHE IS COMING TO HOSPITAL THIS AFTERNOON TO SPEAK TO PT AND TELL HIM HE HAS TO PARTIPATE WITH THERAPY SO HE CAN GO TO REHAB AT [facility]. HODA EXPLAINED [facility], STATES SHE DOES NOT WANT PT IN DETENTION CARE AND WILL COME AND TELL PT TO PARTICIPATE IN THERAPY AT [facility] SO HE CAN GO TO REHAB AT [facility]. HODA NOTIFIED BOWEN TEJADA. CM WAITING ON PT'S SPOUSE TO SPEAK TO HIM IN THE ROOM REGARDING PARTICIPATING WITH HOSPITAL THERAPY SO INSURANCE WILL PAY FOR SKILLED REHAB; PT'S SPOUSE REFUSING REGENERATOR OPERATOR CARE AND INSISTING ON SKILLED NUSING REHAB WHICH REQUIRES PT TO PARTICIPATE IN THERAPY SERVICES. CM TO CONTINUE TO FOLLOW AND ASSIST. IBRAHIMA NELSONCASE MANAGEMENT DCP- Discharge Planning Updated by [id number]: Ibrahima Nelson on 03/15/19 6:[address] Patient Name: MANA SAXENA Encounter No: [id number] : 1940 Primary Insurance: AETNA MEDICARE PPO or HMO Anticipated DC Date: 02-24-2019 Planned Disposition: Intermediate Facility External Planned Provider:[facility], MEDICARE REHAB BED DCP follow-up note: [facility] DIS[facility]GE TO [facility]HAB TODAY. CM FAXED UPDATE WITH THERAPY NOTES TO [facility] VIA PUJA AT [phone]. CM WAITING ADMISSION DETERMINATION AND INSURANCE AUTHORIZATION FOR REHAB AT [facility]. Ibrahima Nelson, CASE MANAGEMENT DCP- Discharge Planning Updated by [id number]: Ibrahima Nelson on 03/12/19 3:[address] Patient Name: MANA SAXENA Encounter No: [id number] : [birth year] Primary Insurance: AETNA MEDICARE PPO or HMO Anticipated DC Date: 02-24-2019 Planned Disposition: Intermediate Facility External Planned Provider: [facility], MEDICARE REHAB BED DCP follow-up note: CM RECEIVED CALL FROM PUJA [facility]; REFERRAL WAS RECEIVED, PT'S INSURANCE WILL PAY OUT OF NETWORK BENEFITS JUST THE SAME IN NETWORK TO [facility]. PT WILL NEED THERAPY NOTES WITH PATIENT PARTICIPATION TO GET INSURANCE AUTHORIZATION FOR REHAB. PT NEEDS THERAPY NOTES DOCUMENTING PATIENT PARTICIPATION FOR INSURANCE TO AUTHORIZE . CM WAITING ADMISSION DETERMINATION AND INSURANCE AUTHORIZATION FOR REHAB AT [facility]. Ibrahima Nelson, CASE MANAGEMENT DCP- Discharge Planning Updated by [id number]: Ibrahima Nelson on 03/11/19 1:[address] Patient Name: MANA SAXENA Encounter No: [id number] : 1940 Primary Insurance: AETNA MEDICARE PPO or HMO Anticipated DC Date: 02-24-2019 Planned Disposition: Intermediate Facility External Planned Provider: [facility], MEDICARE REHAB BED DCP follow-up note: CM RECEIVED CALL FROM DAV[facility], THEY ARE OUT OF INSURANCE NETWORK AND CANNOT ACCEPT PT. CM SPOKE TO PT AND SPOUSE IN ROOM. REPORTS IT IS OK TO SEND REFERRAL TO [facility] AND IF THEY DON'T ACCEPT, ANY IN NETWORK FACILITY WILL HAVE TO DO, JUST NOT [facility] [place]. CHOICE LETTER COMPLETED. QUEEN ODESSA PROVIDED INSURANCE CUSTOMER SERVICES NUMBER OF AND WEBSITE ADDRESS "[email or web address]" FOR CM USE IF NEEDED. CM NOTIFIED PUJA OF [facility] OF REHAB REFERRAL, . CM FAXED REFERRAL TO [facility] VIA PUJA AT [phone]. CM WAITING ADMISSION DETERMINATION AND INSURANCE AUTHORIZATION FOR REHAB AT [facility] IN [place]. FATOUMATA Bhatt DCP- Discharge Planning Updated by [id number]: Ibrahima Nelson on 03/10/19 2:[address] Patient Name: MANA SAXENA Encounter No: [id number] : 1940 Primary Insurance: AETNA MEDICARE PPO or HMO Anticipated DC Date: 02-24-2019 Planned Disposition: Intermediate Facility External Planned Provider:[facility], MEDICARE REHAB BED DCP follow-up note: CM FAXED UDPATE WITH OT EVALUATION TO UBALDO AT [facility] AT [phone]. [facility] IS TRYING TO GET APPROVAL FOR OUT OF NETWORK SKILLED REHAB BENEFITS. CM WAITING ADMISSION DETERMINATION FROM [facility] FOR REHAB. PT WILL NEED TO HAVE INSURANCE AUTHORIZATION FOR REHAB SERVICES. IBRAHIMA NELSON CASE MANAGEMENT Appended by Ibrahima Nelson on 03/10/2019 15:03 CDT: CM [facility], , WHO INFORMED CM THAT THEY ARE STILL TRYING TO CONNECT WITH PT'S INSURANCE COMPANY TO REQUEST AUTHORIZATION OF SERVICES. CM PROVIDED PT'S SOCIAL SECURITY NUMBER AND FAXED UDPATE TO UBALDO AT [facility] AT [phone]. [facility] IS TRYING TO GET APPROVAL FOR OUT OF NETWORK SKILLED REHAB BENEFITS. CM WAITING ADMISSION DETERMINATION FROM [facility] FOR REHAB. PT WILL NEED TO HAVE INSURANCE AUTHORIZATION FOR REHAB SERVICES. FATOUMATA BHATT DCP- Discharge Planning Updated by [id number]: Ibrahima Nelson on 03/09/19 10:[address] Patient Name: MANA SAXENA Encounter No: [id number] : 1940 Primary Insurance: AETNA MEDICARE PPO or HMO Anticipated DC Date: 02-24-2019 Planned Disposition: Intermediate Facility External Planned Provider:[facility], MEDICARE REHAB BED DCP follow-up note: CM REVIEWED CHART, OBTAINED ORDER FOR OCCUPATIONAL THERAPY EVALUATION. CM FAXED UPDATED REFERRAL TO [facility], . CM RECEIVED CALL FROM UBALDO OF [facility], , [facility] IS NOT IN NETWORK WITH PT'S INSURANCE AND THEY HAVE SUBMITTED TO INSURANCE TO SEE IF INSURANCE WILL COVER REHAB AT [facility]. CM WAITING ADMISSION DETERMINATION FROM [facility] FOR REHAB. PT WILL NEED TO HAVE INSURANCE AUTHORIZATION FOR REHAB SERVICES. IBRAHIMA NELSON CASE MANAGEMENT DCP- Discharge Planning Updated by [id number]: Ibrahima Nelson on 03/03/19 9:[address] Patient Name: MANA SAXENA Encounter No: [id number] : 1940 Primary Insurance: AETNA MEDICARE PPO or HMO Anticipated DC Date: 02-24-2019 Planned Disposition: Intermediate Facility External Planned Provider: [facility], MEDICARE REHAB BED DCP follow-up note: CM RECEIVED CALL FROM PREETHI [facility] IN[facility]IENT REH[facility], UPDATE PROVIDED VIA PHONE; DOUGLAS CANCELLED REFERRAL AND INSTRUCTED CM TO SEND REFERRAL WHEN PT IS BETTER AND IF PT STILL NEEDS INPATIENT REHAB SERVICES. CM WAITING ADMISSION DETERMINATION FROM [facility] FOR REHAB OR REGENERATOR OPERATOR CARE. PT WILL NEED TO HAVE INSURANCE AUTHORIZATION WHEN OCCUPATIONAL THERAPY EVALUATION HAS BEEN COMPLETED AND RECEIVED BY SNF FACILITY. IBRAHIMA NELSON CASE MANAGEMENT DCP- Discharge Planning Updated by [id number]: Ibrahima Nelson on 03/02/19 10:[address] Patient Name: MANA SAXENA Encounter No: [id number] : 1940 Primary Insurance: AETNA MEDICARE PPO or HMO Anticipated DC Date: 02-24-2019 Planned Disposition: Inpatient Rehab External Planned Provider: [facility] INPATIENT REHAB DCP follow-up note: CM RECEIVED CALL FROM IAN OF [facility], THEY HAVE ACCEPTED MEDICALLY AND WILL SUBMIT TO INSURANCE FOR AUTHORIZATION FOR INPATIENT REHAB SERVICES. CM ADVISED THAT PT HAD MOVED TO ICU THIS MORNING AND THAT PT HAS BEEN REFUSING THERAPY SERVICES AND FURTHER THAT OCCUPATIONAL THERAPY EVALUATION HAS NOT YET BEEN COMPLETED. IAN WILL FOLLOW UP WITH CALL TO PT'S TO DISCUSS COMPLIANCE WITH THERAPY SERVICES TO SEE IF THE SPOUSE CAN SPEAK TO PT. CM WAITING RETURN CALL FROM PT'S SPOUSE, QUEEN ODESSA. [facility] WILL SUBMIT TO PT'S INSURANCE COMPANY FOR INPATIENT REHAB AUTHORIZATION WHEN OCCUPATIONAL THERAPY EVALUATION HAS BEEN COMPLETED AND RECEIVED. CM WAITING ADMISSION DETERMINATION FROM [facility] OR REHAB OR DETENTION CARE. PT WILL NEED TO HAVE INSURANCE AUTHORIZATION WHEN OCCUPATIONAL THERAPY EVALUATION HAS BEEN COMPLETED AND RECEIVED BY SNF FACILITY. FATOUMATA BHATT DCP- Discharge Planning Updated by [id number]: Ibrahima Nelson on 03/01/19 3:[address] Patient Name: MANA SAXENA Encounter No: [id number] : 1940 Primary Insurance: AETNA MEDICARE PPO or HMO Anticipated DC Date: 02-24-2019 Planned Disposition: Inpatient Rehab External Planned Provider: [facility] INPATIENT REHAB DCP follow-up note: CM REVIEWED CHART, OCCUPATIONAL THERAPY EVALUATION HAS STILL NOT BEEN COMPLETED / DOCUMENTED. CM FAXED BASIC REFERRAL TO [facility] FOR INPATIENT REHAB CONSIDERATION AT [phone]. CM TO FAX UPDATE WITH OCCUPATIONAL THERAPY EVALUATION WHEN IT IS COMPLETED AND DOCUMENTED. Ibrahima Nelson CASE MANAGEMENT Appended by Ibrahima Nelson on 03/01/2019 16:14 CDT: CM REVIEWED CHART, PT REFUSED PHYSICAL THERAPY TODAY AND THERAPY HAS SIGNED OFF DUE TO PT REFUSAL. OCCUPATIONAL THERAPY EVALUATION STILL NOT COMPLETED. IT IS CM'S EXPERIENCE THAT INSURANCE WILL NOT PAY FOR REHAB SERVICES UNLESS PT IS PARTICIPATING, WHICH THIS PT IS NOT. CM SPOKE TO PT IN ROOM WHO REPORTS HE DID NOT UNDERSTAND; PT STATES HE IS GOING HOME. WHEN CM EXPLAINED IN SLOW DETAIL THAT PT'S SPOUSE WANTS HIM TO GO TO REHAB, PT YELLS AT THAT SOMETHING MUST BE WRONG AND TO CALL . CM CALLED QUEEN ODESSA, SPOUSE, , LEFT MESSAGE ASKING FOR RETURN CALL. CM FAXED REFERRAL TO [facility] [place] THAT THEY CAN GET AUTHORIZATION FOR REHAB WITH PT'S REFUSAL TO DO THERAPY OR AT LEAST CONSIDER FOR DETENTION CARE. CM WAITING RETURN CALL FROM PT'S SPOUSE, QUEEN ODESSA. CM WAITING ADMISSION DETERMINATION FROM [facility] AND [facility] OR REHAB OR REGENERATOR OPERATOR CARE. FATOUMATA BHATT DCP- Discharge Planning Updated by [id number]: Ibrahima Nelson on 02/26/19 12:[address] Patient Name: MANA SAXENA Encounter No: [id number] : 1940 Primary Insurance: AETNA MEDICARE PPO or HMO Anticipated DC Date: 02-24-2019 Planned Disposition: Inpatient Rehab External Planned Provider: [facility] INPATIENT REHAB DCP follow-up note: CM RECEIVED CALL FROM AYUSH OF [facility] PATIENT; SHE HAD CALLED PT'S SPOUSE TO ARRANGE DELIVERY OF MANUAL WHEELCHAIR AND SPOUSE REFUSED IT STATING THAT SHE CANNOT PHYSICALLY PUSH PT IN A WHEELCHAIR AND REQEUSTED A POWER CHAIR. CM ATTEMPTED TO SEE PT'S SPOUSE IN ROOM, SHE WAS NOT THERE. CM CALLED QUEEN ODESSA, . CM INFORMED THAT AN ELECTRIC WHEELCHAIR REQUIRES VERY DETAILED AND LENGHTY DOCUMENTATION THAT CANNOT BE DONE FROM HOSPITAL, REFERRED HER TO PT'S PRIMARY CARE DOCTOR. CM DISCUSSED AVAILABILITY OF REHAB SERVICES, PROVIDERS AND LOCATIONS. REPORTS SHE IS OLDER THAN PT AND IS HAVING TROUBLE CARING FOR PT IN HIS WEAKENED STATE AND WOULD LIKE REHAB AT [facility] FIRST CHOICE AND [facility] SECOND, [facility] THIRD BUT WILL NOT CONSIDER [facility] [place]. CHOICE LETTER COMPLETED. CHART REVIEWED, PHYSICAL THERAPY EVALUATION STILL PENDING, NO OCCUPATIONAL THERAPY HAD BEEN ORDERED. CM OBTAINED ORDER FOR OCCUPATIONAL THERAPY EVALUATION. CM TO PROVIDE REFERRAL TO [facility] FOR INPATIENT REHAB CONSIDERATION ONCE PHYSICAL AND OCCUPATIONAL THERAPY EVALUATIONS ARE COMPLETED. Ibrahima Nelson, CASE MANAGEMENT DCP- Discharge Planning Updated by [id number]: Ibrahima Nelson on 02/23/19 3:[address] Patient Name: MANA SAXENA Admission Status: ER Accout number: [id number] Admission Date: 02-22-2019 : 1940 Admission Diagnosis: Attending: CASEY NAIDU Current LOS: 1 Anticipated DC Date: 02-24-2019 Planned Disposition: Home with Home Health Primary Insurance: UNINSURED DISCOUNT PLAN PLANNED EXTERNAL PROVIDER: [facility] Discharge Planning Comments: CM RECEIVED ORDER FOR HOME HEALTH. CM MET WITH PT AND SPOUSE IN ROOM TO DISCUSS DISCHARGE PLANNING AND NEEDS. MANA SAXENA provided verbal consent to discuss current and ongoing needs with/in the presence of: SPOUSE, . ANSWERED ALL QUESTIONS. PT LIVING AT HOME DEPENDENTLY WITH SPOUSE WHO ASSISTS WITH MEDICATIONS. PT HAS BEEN GETTING WEAKER AND NOW NEEDS ASSISTANCE WITH BATHING. PT HAS WALKER WITH WHEELS, SEAT AND BRAKES AND NO MEDICAL EQUIPMENT PROVIDER PREFERENCE. PT HAS HOME HEALTH WITH [facility] FOR NURSING AND PHYSICAL THERAPY. CM DISCUSSED AVAILABILITY OF HOME HEALTH, REHAB SERVICES AND MEDICAL EQUIPMENT. PT'S SPOUSE WANTS [facility] RESUMPTION AND REPORTS NEEDING A WHEELCHAIR PT IS NO LONGER ABLE TO CLIMB THE STEPS TO GET ON THE MEDICAID BUS FOR DIALYSIS TRANSPORTATION. PT GOES TO DIALYSIS IN [place] ON MWF SCHEDULE. PT'S FAMILY TO TRANSPORT HOME AT DISCHARGE. CHOICE SIGNED FOR [facility], CHOICE FOR NO PREFERENCE FOR MEDICAL EQUIPMENT PROVIDER COMPLETED BY CM. CM COLLECTED REGISTRATION INFORMATION AND FORWARDED TO [place] OF REGISTRATION. CM SPOKE TO BOWEN TEJADA WHO PROVIDED ORDER FOR WHEELCHAIR. CM CALLED [facility], , SPOKE TO AYUSH AND PROVIDED REFERRAL INFORMATION FOR WHEELCHAIR. CM FAXED ORDER AND CHART INFORMATION TO [facility] AT [phone]. [facility] PATIENT TO PROCESS ORDER FOR WHEELCHAIR DELIVERY TO PT IF QUALIFIES; PT'S INSURANCE REQUIRES PRIOR AUTHORIZATION. CM CALLED [facility], , SPOKE TO KURT, PROVIDED REFERRAL INFORMATION, PT IS ON SERVICES WITH [facility] ALREADY.. CM FAXED REFERRAL INFORMATION TO [facility], . FOR DISCHARGE, NOTIFY [facility] AT [phone]; FAX DISCHARGE INFORMATION TO [facility] AT [phone]. Bricklayer Helper: [facility] Nelson [facility] Planning Initial Assessment Updated by [id number]: Ibrahima Nelson on 02/23/19 3:52 pm * Is the patient Alert and Oriented? Yes * How many steps to enter\\exit or inside your home? RAMP * PCP DR. VIC PAREDES IN [place] * Pharmacy [facility] IN [place] * Preadmission Environment Home with Family * ADLs Partial Dependent * Partial ADLs (Assistance needed) Bathing Medication Management * Equipment Rolling Walker * Other Equipment ROLLING WALKER WITH SEAT AND BRAKES NO MEDICAL EQUIPMENT PROVIDER PREFERENCE * List name and contact numbers for known caregivers / representatives who currently or will assist patient after discharge: QUEEN ODESSA, SPOUSE, IDRIS SAXENA, NIECE, * Verbal permission to speak to the caregivers and representatives has been obtained from the patient. Yes * Community resources currently utilized Home Health * Please name any agencies selected above. [facility], NURSING AND PHYSICAL THERAPY * Additional services required to return to the preadmission environment? No * Can the patient safely return to the preadmission environment? Yes * Has this patient been hospitalized within the prior 30 days at any hospital? Yes Coverage Notice Reviewer: [id number] Nelson Notice Issued Date-Time: 02/23/2019 15:15 Notice Type: Patient Choice Letter Notice Delivered To: Family Member Relationship to Patient: Spouse Dye Tub Tender Name: QUEEN ODESSA Delivery Method: HAND - Hand Delivered Cristina Days: Prior Verbal Notification: Recipient Understood Notice: Yes Recipient Signature: Yes Med Rec Note Co-signed by Attending: Coverage Notice Comment: ANY MEDICAL EQUIPMENT COMPANY SERVICING [place] // [facility] Reviewer: [id number] Nelson Notice Issued Date-Time: 02/26/2019 12:00 Notice Type: Patient Choice Letter Notice Delivered To: Family Member Relationship to Patient: Spouse Dye Tub Tender Name: QUEEN ODESSA Delivery Method: PHONE - Phone Cristina Days: Prior Verbal Notification: Recipient Understood Notice: Yes Recipient Signature: Med Rec Note Co-signed by Attending: Coverage Notice Comment: [facility]- [facility] 3-[facility] NOT [facility]Y [facility]!! Reviewer: [id number] Nelson Notice Issued Date-Time: 03/11/2019 15:50 Notice Type: Patient Choice Letter Notice Delivered To: Family Member Relationship to Patient: Spouse Dye Tub Tender Name: QUEEN ODESSA Delivery Method: HAND - Hand Delivered Cristina Days: Prior Verbal Notification: Recipient Understood Notice: Yes Recipient Signature: Med Rec Note Co-signed by Attending: Coverage Notice Comment: [facility] OR ANY IN NETWORK SNF FOR REHAB Last DP export: 03/19/19 6:57 a Patient Name: MANA SAXENA Page [id number] at 1746 All edits/amendments must be made on the electronic document DICTATION DATE: 03/19/191745 STOCK SAW OPERATOR: GRACE 03/19/191745 RPT#: [id number] DC DATE: STATUS: ADM IN [facility] [address] [place] [address] END OF REPORT
--- NOTE | 2019-03-19 19:21 | NUR ---
RECIEVED UP IN BED WITH EYES CLOSED. EASILY AROUSES WITH VERBAl STIMULI. C/O BEING TIRED. REFUSES DINN AND ASK FOR IT TO BE LEFT AND WHEN HE GETS READY IT CAN BE HEATED UP. AVF TO LEFT ARM WITH GOOD BRUIT AND TRILL. DSG TO SITE IS CLEAN DRY AND INTACT. CVL TO LEFT GROIN WITH DSG INTACT. +1 EDEMA TO RIGHYT LOWER EXTREMITY AND GENERALIZED EDEMA TO LEFT LOWER EXTREMITY. CONT TO DO FSBS Q4 HR. 2000 138 WITH NO COVERAGE. DENIES ANY NEEDS AT THIS TIME.
[2019-03-19 20:00] VITALS: BP 110/56
[2019-03-20] VITALS: BP 111/65
--- NOTE | 2019-03-20 01:08 | NUR ---
FSBS 81 AND UP EATING A SANDWICH AT THIS TIME.
[2019-03-20 03:23] LABS: BASOPHILS 0.4 % (0-2); EOSINOPHILS 1.2 % (0-7); HEMOGLOBIN 8.9 g/dL (13.5-17.5); IMMATURE GRANULOCYTES 0.2 % (0-5); MCH 30.1 pg (26.0-34.0); MCHC 31.8 g/dL (31.0-37.0); MCV 94.6 fL (80.0-100.0); MEAN PLATELET VOLUME 10.7 fL (7.4-10.4); MONOCYTES 17.7 % (2-11); NEUTROPHILS 64.5 % (40-80); PLATELET COUNT 138 10x3/uL (130-400); RBC 2.96 10x6/uL (4.20-6.10); RDW 21.2 % (11.5-14.5); WBC 4.9 10x3/uL (4.8-10.8)
[2019-03-20 03:30] LABS: ALBUMIN 2.3 g/dL (3.4-5.0); BILIRUBIN - TOTAL 0.7 mg/dL (0.2-1.3); CALCIUM 8.4 mg/dL (8.5-10.1); CREATININE - SERUM 4.1 mg/dL (0.6-1.3); POTASSIUM - SERUM 4.1 mmol/L (3.5-5.1); PROTEIN - SERUM 6.2 g/dL (6.4-8.2)
[2019-03-20 03:37] LABS: ANION GAP 13.2 mmol/L (8-16); CARBON DIOXIDE 26.9 mmol/L (21.0-32.0)
[2019-03-20 04:00] VITALS: BP 115/57
--- NOTE | 2019-03-20 07:00 | NUR ---
RECEIVED REPORT. ASSUMED CARE OF PATIENT. CALL LIGHT WITHIN REACH. PATIENT ON BEDPAN AT THIS TIME. ASSISTED PATIENT OFF BEDPAN. SKIN ASSESSMENT TO COCCYX AREA AND BUTTOCKS COMPLETE. NO DISTRESSS.
[2019-03-20 08:54] VITALS: BP 133/61
--- NOTE | 2019-03-20 09:27 | NUR ---
FSBS 223. 2 UNITS HUMULIN R ADMINISTERED AND 4 UNITS OF NPH ADMINISTERED. PATIENT IS VERY SENSITIVE TO INSULIN. PT AT BEDSIDE AT THIS TIME TO AMBULATE PATIENT.
--- NOTE | 2019-03-20 11:26 | NUR ---
FSBS 260. 6 UNITS HUMULIN ADMINISTERED PER SLIDING SCALE. NO DISTRESS. CONTINUES SITTING UP IN CHAIR AT BEDSIDE.
[2019-03-20 11:41] VITALS: BP 104/51
[2019-03-20 16:41] VITALS: BP 116/68
--- NOTE | 2019-03-20 16:43 | NUR ---
FSBS 123. NO INSULIN PER SLIDING SCALE. RESTIN IN BED. NO DISTRESS.
--- NOTE | 2019-03-20 17:37 | NUR ---
RESTING IN BED WITH EYES OPEN. STILL CONSUMING PM MEAL AT THIS TIME. NO DISTRESS.
[2019-03-20 20:00] VITALS: BP 100/48
--- NOTE | 2019-03-20 21:08 | NUR ---
RECIEVED LAYING IN BED WITH EYES CLOSED. EASILY AROUSES WITH VERBAL STIMULI. ALERT AND ORIENTED WITH PERIODS OF CONFUSION. REQUIRES ASSIST WITH TURNING AND REPOSITIONING. LAYING ON HIS LEFT SIDE AT THIS TIME. LEFT ARM RESERVED D/T AVF. RECIEVED DIALYSIS TODAY. DSG TO SITE IS CDI. FISTULA HAS GOOD BRUITT AND TRILL. FSBS AT 1999 WAS 120. CONT TO DO FSBS Q4 HRS. DENIES ANY NEEDS.
[2019-03-21 04:00] VITALS: BP 119/62
--- NOTE | 2019-03-21 07:00 | NUR ---
RECEIVED REPORT. ASSUMED CARE OF PATIENT. CALL LIGHT WITHIN REACH. RESTING WITH EYES CLOSED IN SUPINE POSITION. EASILY AROUSED. NO DISTRESS.
[2019-03-21 07:57] VITALS: BP 127/61
--- NOTE | 2019-03-21 08:15 | NUR ---
FSBS 90. NO INSULIN COVERAGE PROVIDED.
[2019-03-21 08:23] LABS: BASOPHILS 0.2 % (0-2); HEMATOCRIT 28.3 % (42.0-54.0); HEMOGLOBIN 9.1 g/dL (13.5-17.5); IMMATURE GRANULOCYTES 0.4 % (0-5); LYMPHOCYTES 24.4 % (15-50); MCH 29.9 pg (26.0-34.0); MCHC 32.2 g/dL (31.0-37.0); MCV 93.1 fL (80.0-100.0); MEAN PLATELET VOLUME 10.7 fL (7.4-10.4); MONOCYTES 19.6 % (2-11); NEUTROPHILS 54.4 % (40-80); PLATELET COUNT 162 10x3/uL (130-400); RBC 3.04 10x6/uL (4.20-6.10); RDW 20.8 % (11.5-14.5); WBC 4.8 10x3/uL (4.8-10.8)
[2019-03-21 08:43] LABS: ALBUMIN 2.7 g/dL (3.4-5.0); ANION GAP 14.3 mmol/L (8-16); BILIRUBIN - TOTAL 0.7 mg/dL (0.2-1.3); CALCIUM 8.5 mg/dL (8.5-10.1); CARBON DIOXIDE 25.5 mmol/L (21.0-32.0); CREATININE - SERUM 5.3 mg/dL (0.6-1.3); POTASSIUM - SERUM 3.8 mmol/L (3.5-5.1); PROTEIN - SERUM 6.3 g/dL (6.4-8.2)
[2019-03-21 11:57] VITALS: BP 122/64
--- NOTE | 2019-03-21 12:10 | NUR ---
FSBS 171. NO INSULIN ADMINISTERED PATIENT IS VERY SENSITIVE. RISK FOR HYPOGLYCEMIA WITH ADMINISTRATION OF INSULIN AT THIS TIME. WILL RECHECK FSBS AT 1600 ORDERED. PATIENT SITTING UP TO CHAIR AT BEDSIDE AT THIS TIME. NO DISTRESS. CALL LIGHT WITHIN REACH.
--- NOTE | 2019-03-21 15:06 | NUR ---
PATIENT AT BEDSIDE. PATIENT RESTING ON LEFT LATERAL SIDE. CALL LIGHT WITHIN REACH. NO DISTRESS.
[2019-03-21 15:57] VITALS: BP 132/68
--- NOTE | 2019-03-21 16:34 | NUR ---
FSBS 197. 2 UNITS HUMULIN ADMINISTERED PER SLIDING SCALE. PRUNE JUICE PROVIDED TO PATIENT. PATIENT COMPLAINING OF CONSTIPATION. PATIENT HAS MEDIUM BM YESTERDAY AND SMALL BM THIS AM.
--- NOTE | 2019-03-21 17:55 | NUR ---
ASSISTED PATIENT OOB TO CHAIR AT BEDSIDE. PATIENT WANTS TO SIT UP FOR A WHILE. DINNER TRAY LEFT PER PATIENT REQUEST. NO DISTRESS. CALL LIGHT WITHIN REACH.
--- NOTE | 2019-03-21 20:32 | NUR ---
ASSITEDN OUT OF CHAIR AND ON TO BEDSIDE COMMODE. ABLE TO STAND WITH ASSIST X2. LEGS BECOME WEAKEN QUICKLY AND MUST SIT DOWN. HAD A LARGE SOFT FORMED BM. ASSISTED BACK TO BED AFTER PERICARE PROVIDED. LEFT ARM RESERVED D/T AVF. GOOD BRUIT AND TRILL. DSG IN PLACE CDI. IV TO LEFT GROIN WITH DSG INTACT. DENIES ANY OTHER NEEDDS AT THIS TIME.
[2019-03-21 20:35] VITALS: BP 108/59
[2019-03-22 01:13] VITALS: BP 104/49
[2019-03-22 04:27] LABS: BASOPHILS 0.5 % (0-2); EOSINOPHILS 1.9 % (0-7); HEMATOCRIT 27.3 % (42.0-54.0); HEMOGLOBIN 8.9 g/dL (13.5-17.5); IMMATURE GRANULOCYTES 0.5 % (0-5); LYMPHOCYTES 28.6 % (15-50); MCH 30.3 pg (26.0-34.0); MCHC 32.6 g/dL (31.0-37.0); MCV 92.9 fL (80.0-100.0); MEAN PLATELET VOLUME 10.6 fL (7.4-10.4); NEUTROPHILS 48.5 % (40-80); PLATELET COUNT 160 10x3/uL (130-400); RBC 2.94 10x6/uL (4.20-6.10); RDW 21.1 % (11.5-14.5); WBC 4.3 10x3/uL (4.8-10.8)
[2019-03-22 04:45] LABS: ALBUMIN 2.6 g/dL (3.4-5.0); ANION GAP 13.8 mmol/L (8-16); BILIRUBIN - TOTAL 0.63 mg/dL (0.2-1.3); CALCIUM 8.7 mg/dL (8.5-10.1); CARBON DIOXIDE 27.2 mmol/L (21.0-32.0); CREATININE - SERUM 5.9 mg/dL (0.6-1.3); PROTEIN - SERUM 6.6 g/dL (6.4-8.2)
--- NOTE | 2019-03-22 05:07 | NUR ---
AT 0400 FSBS 69. GAVE JUICE AND SNACK WILL RECHECK.
--- NOTE | 2019-03-22 05:09 | NUR ---
RECHECKED BLOOD SUGAR 166 AT THIS TIME. WILL NOT TREAT D/T BRITTLE DIABETIC WITH HX OF HYPOGLYCEMIC EVENTS.
[2019-03-22 05:26] VITALS: BP 111/58
--- NOTE | 2019-03-22 07:40 | NUR ---
PT RESTING IN BED ALERT AND ORIENTED X3. PT VITALS STABLE. NO S/S OF DISTRESS. BED LOW CALL LIGHT WITHIN REACH. WILL CONTINUE TO MONITOR.
[2019-03-22 08:16] VITALS: BP 114/62
[2019-03-22 11:36] VITALS: BP 111/59
--- NOTE | 2019-03-22 14:21 | NUR ---
PT RESTING IN BED AT THISE TIME. PT DID NOT EAT BREAKFAST OR LUNCH. ECOURGED PT TO EAT PROVIDED HIM WITH ORANGE JUICE. DIALYSIS SCEDULED FOR [place]. BED LOW CALL LIGHT WITHIN REACH. WILL CONTINUE TO MONITOR.
[2019-03-22 15:40] VITALS: BP 118/63
--- NOTE | 2019-03-22 16:50 | NUR ---
PT FSBS 59 TREATED WITH INSTANT GLUCOSE. WILL CONTINUE TO MONITOR
--- NOTE | 2019-03-22 17:07 | NUR ---
PT FSBS 97. WILL CONTINUE TO MONITOR.
--- NOTE | 2019-03-22 22:53 | NUR ---
RECIEVED BACK FROM DIALYSIS WITH NO REPORT CALLED TO THIS NURSE. ALERT AND ORIENTED AT THIS TIME. SANDWICH BOX GIVEN AND ATE 100% OF SANDWICH. LEFT ARM RESERVED D/T AVF. FISTULA HAS GOOD BRUIT AND TRILL. IV TO LEFT GROIN WITH DSG INTACT. UNABLE TO DO 1999 FSBS D/T BEING IN DIALYSIS AT THIST TIME. DENIES ANY NEEDS.
[2019-03-23] VITALS: BP 116/63
[2019-03-23 04:00] VITALS: BP 110/58
[2019-03-23 05:40] LABS: BASOPHILS 0.4 % (0-2); EOSINOPHILS 0.6 % (0-7); HEMATOCRIT 26.7 % (42.0-54.0); HEMOGLOBIN 8.8 g/dL (13.5-17.5); IMMATURE GRANULOCYTES 0.2 % (0-5); LYMPHOCYTES 17.8 % (15-50); MCH 30.6 pg (26.0-34.0); MCV 92.7 fL (80.0-100.0); MEAN PLATELET VOLUME 10.8 fL (7.4-10.4); MONOCYTES 16.5 % (2-11); NEUTROPHILS 64.5 % (40-80); PLATELET COUNT 162 10x3/uL (130-400); RBC 2.88 10x6/uL (4.20-6.10); RDW 21.3 % (11.5-14.5); WBC 4.7 10x3/uL (4.8-10.8)
[2019-03-23 05:54] LABS: ALBUMIN 2.5 g/dL (3.4-5.0); ANION GAP 14.7 mmol/L (8-16); BILIRUBIN - TOTAL 0.59 mg/dL (0.2-1.3); CALCIUM 8.2 mg/dL (8.5-10.1); CARBON DIOXIDE 25.5 mmol/L (21.0-32.0); CREATININE - SERUM 4.6 mg/dL (0.6-1.3); PHOSPHOROUS 1.7 mg/dL (2.5-4.9); POTASSIUM - SERUM 4.2 mmol/L (3.5-5.1)
--- NOTE | 2019-03-23 06:27 | NUR ---
RECIEVED LAB RESULTS WITH H&H OF 8.8/26.7. H&H PROTOCOL ORDERED ON 03/13/19 STILL ON ORDERS. WANT TO CLARIFY ORDER AND AWAITING CALL BACK.
--- NOTE | 2019-03-23 07:10 | NUR ---
REPORT RECEIVED FROM ASSISTANT CHILD CARE TEACHER AND PATIENT CARE ASSUMED. PATIENT IS AWAKE AND ALERT. PATIENT DENIES ANY NEEDS OR PAIN. PATIENT IS STABLE AND VSS. WILL CONTINUE WITH PLAN OF CARE. SR UP X 2 BED IN LOW POSTION AND CALL LIGHT IN REACH.
[2019-03-23 08:08] VITALS: BP 127/64
--- NOTE | 2019-03-23 08:15 | NUR ---
PATIENT UP TO BS CHAIR FOR BREAKFAST.APPLIED HYDROCORTISONE CREAM FOR ITCHING. WILL CONTINUE TO MONITOR. CALL LIGHT IN REACH.
--- NOTE | 2019-03-23 11:31 | MORECARE ---
CASE MANAGEMENT DISCHARGE SUMMARY PATIENT: MANA SAXENA UNIT: [id number] ADM DATE: 02/24/19 AGE: 78 : 38 SEX: M ROOM/BED: D.2109 AUTHOR: JORGE LORENZO PHYSICIAN: REFERRING PHYSICIAN: CASEY NAIDU MD DATE OF SERVICE: 03/23/19 Discharge Plan Patient Name: MANA SAXENA Facility: [facility]:[place] : 1940 Planned Disposition: Nursing Facility [facility] Cert Anticipated Discharge Date: 03/22/19 Discharge Date: Expected LOS: 26 Initial Reviewer: [id number] Initial Review Date: 02/22/2019 Generated: 03/23/19 12:31 pm Comments DCP- Discharge Planning Updated by [id number]: Ibrahima Nelson on 03/23/19 10:[address] Patient Name: MANA SAXENA Encounter No: [id number] : 1940 Primary Insurance: AETNA MEDICARE PPO or HMO Anticipated DC Date: 03-22-2019 Planned Disposition: Nursing Facility [facility] Cert External Planned Provider: [facility], MEDICARE REHAB BED DCP follow-up note: CM FAXED UPDATE TO [place] [facility], WITH UPDATED BLOOD CULTURE RESULT OF NEGATIVE ON DAY FOUR TO [facility]IA [place] AT [phone]. PT'S SPOUSE REFUSING PROFESSIONAL HEALTHCARE REPRESENTATIVE CARE AND INSISTING ON SKILLED NUSING REHAB. [facility] NOW WANTS NEW BLOOD CULTURE RESULT SHOWING NO INFECTION. CM WAITING INSURANCE FOR AUTHORIZATION. OF REHAB SERVICES AT [facility]. IBRAHIMA NELSONCASE VERO DCP- Discharge Planning Updated by [id number]: Ibrahima Nelson on 03/19/19 4:[address] Patient Name: MANA SAXENA Encounter No: [id number] : 1940 Primary Insurance: AETNA MEDICARE PPO or HMO Anticipated DC Date: 03-22-2019 Planned Disposition: Nursing Facility [facility] Cert External Planned Provider: [facility], MEDICARE REHAB BED DCP follow-up note: CM FAXED UPDATE TO [facility], . PT'S SPOUSE REFUSING PROFESSIONAL HEALTHCARE REPRESENTATIVE CARE AND INSISTING ON SKILLED NUSING REHAB. [facility] NOW WANTS NEW BLOOD CULTURE RESULT SHOWING NO INFECTION PRIOR TO SENDING TO INSURANCE FOR AUTHORIZATION. CM WAITING BLOOD CULTURE RESULT. IBRAHIMA NELSONCASE MANAGEMENT Appended by Ibrahima Nelson on 03/19/2019 17:40 CDT: CM FAXED PRELIMINARY BLOOD CULTURE RESULT OF NEGATIVE ON DAY ONE TO [facility]IA [place] AT [phone]. PT'S SPOUSE REFUSING PROFESSIONAL HEALTHCARE REPRESENTATIVE CARE AND INSISTING ON SKILLED NUSING REHAB. [facility] NOW WANTS NEW BLOOD CULTURE RESULT SHOWING NO INFECTION PRIOR TO SENDING TO INSURANCE FOR AUTHORIZATION. CM WAITING FINAL BLOOD CULTURE RESULT. FATOUMATA BHATT DCP- Discharge Planning Updated by [id number]: Ibrahima Nelson on 03/18/19 10:[address] Patient Name: MANA SAXENA Encounter No: [id number] : 1940 Primary Insurance: AETNA MEDICARE PPO or HMO Anticipated DC Date: 03-22-2019 Planned Disposition: Nursing Facility [facility] Cert External Planned Provider: [facility], MEDICARE REHAB BED DCP follow-up note: CM FAXED UPDATE TO [facility], . CM RECEIVED MESSAGE FROM [facility] WHO INFORMED THAT [facility] PLANS TO ACCEPT BUT WILL NOT SEND FOR INSURANCE AUTHORIZATION OR MAKE FINAL ADMISSION DETERMINATION UNTIL NEW BLOOD CULTURE IS DONE TO SHOW PT IS CLEAR OF INFECTION. CM NOTIFIED BOWEN TEJADA. CM MET WITH PT AND FAMILY, DISCUSSED ABOVE. PT'S SPOUSE REFUSING PROFESSIONAL HEALTHCARE REPRESENTATIVE CARE AND INSISTING ON SKILLED NUSING REHAB. [facility] NOW WANTS NEW BLOOD CULTURE RESULT SHOWING NO INFECTION PRIOR TO SENDING TO INSURANCE FOR AUTHORIZATION. CM WAITING BLOOD CULTURE RESULT. FATOUMATA BHATT DCP- Discharge Planning Updated by [id number]: Ibrahima Nelson on 03/17/19 7:[address] Patient Name: MANA SAXENA Encounter No: [id number] : 1940 Primary Insurance: AETNA MEDICARE PPO or HMO Anticipated DC Date: 03-15-2019 Planned Disposition: Nursing Facility [facility] Cert External Planned Provider: [facility], MEDICARE REHAB BED DCP follow-up note: CM FAXED UPDATE TO [facility], . PT'S SPOUSE REFUSING SENIOR LIVING CARE AND INSISTING ON SKILLED NUSING REHAB WHICH REQUIRES PT TO PARTICIPATE IN THERAPY SERVICES. [facility] WILL HAVE ENOUGH PARTICIPATION TO SECURE INSURANCE AUTHORIZATION FOR REHAB PLACEMENT AT [facility]. IBRAHIMA NELSONCASE MANAGEMENT DCP- Discharge Planning Updated by [id number]: Ibrahima Nelson on 03/16/19 3:[address] Patient Name: MANA SAXENA Encounter No: [id number] : 1940 Primary Insurance: AETNA MEDICARE PPO or HMO Anticipated DC Date: 03-15-2019 Planned Disposition: Nursing Facility [facility] Cert External Planned Provider: [facility], LONG TERM CARE MEDICAID BED DCP follow-up note: CM FAXED UPDATE TO [facility], . PT'S SPOUSE REFUSING SENIOR LIVING CARE AND INSISTING ON SKILLED NUSING REHAB WHICH REQUIRES PT TO PARTICIPATE IN THERAPY SERVICES. CM TO SEND THERAPY UPDATE TOMORROW, [facility] WILL HAVE ENOUGH PARTICIPATION TO SECURE REHAB PLACEMENT AT [facility]. FATOUMATA BHATT DCP- Discharge Planning Updated by [id number]: Ibrahima Nelson on 03/15/19 1:[address] Patient Name: MANA SAXENA Encounter No: [id number] : 1940 Primary Insurance: AETNA MEDICARE PPO or HMO Anticipated DC Date: 03-15-2019 Planned Disposition: Nursing Facility [facility] Cert External Planned Provider: [facility], LONG TERM CARE MEDICAID BED DCP follow-up note: CM RECEIVED MESSAGE FROM [facility], PT'S INSURANCE WILL NOT APPROVE REHAB SERVICES PT HAS BEEN REFUSING THERAPY. [facility] WILL ACCEPT FOR SENIOR LIVING CARE IF PT'S FAMILY AGREES AND WILL WORK OUT FINANCIAL ARRANGEMENTS. CM CALLED AND NOTIFIED QUEEN ODESSA AT [phone] WHO INFORMED CM THAT SHE IS NOT ABLE TO TAKE CARE OF PT AT HOME BY HERSELF AND WILL DISCUSS SENIOR LIVING CARE ARRANGEMENTS WITH [facility]. CM NOTIFIED [facility]. [facility] PHOTOFINISHING LABORATORY WORKER CALLING PT'S NOW TO DISCUSS FINANCIAL ARRANGEMENTS FOR SENIOR LIVING CARE PLACEMENT. CM WAITING FAMILY AND CARE HOME TO WORK OUT FINANCIAL ARRANGEMENTS FOR PROFESSIONAL HEALTHCARE REPRESENTATIVE CARE CARE HOME PLACEMENT. Ibrahima Nelson, CASE MANAGEMENT Appended by Ibrahima Nelson on 03/15/2019 14:55 CDT: [facility] RECEIVED CALL FROM QUEEN ODESSA, , WHO STATED THAT SHE DID NOT KNOW THAT PT HAD TO PARTICIPATE WITH THERAPY FOR INSURANCE TO PAY FOR HIM TO GO TO REHAB. STATES THAT SHE IS COMING TO HOSPITAL THIS AFTERNOON TO SPEAK TO PT AND TELL HIM HE HAS TO PARTIPATE WITH THERAPY SO HE CAN GO TO REHAB AT [facility]. CM EXPLAINED PT IS READY TO DISCHARGE FROM THE HOSPTIAL, STATES SHE DOES NOT WANT PT IN PROFESSIONAL HEALTHCARE REPRESENTATIVE CARE AND WILL COME AND TELL PT TO PARTICIPATE IN THERAPY AT [facility] SO HE CAN GO TO REHAB AT [facility]. CM NOTIFIED BOWEN TEJADA. CM WAITING ON PT'S SPOUSE TO SPEAK TO HIM IN THE ROOM REGARDING PARTICIPATING WITH HOSPITAL THERAPY SO INSURANCE WILL PAY FOR SKILLED REHAB; PT'S SPOUSE REFUSING SENIOR LIVING CARE AND INSISTING ON SKILLED NUSING REHAB WHICH REQUIRES PT TO PARTICIPATE IN THERAPY SERVICES. CM TO CONTINUE TO FOLLOW AND ASSIST. IBRAHIMA NELSON,CASE MANAGEMENT DCP- Discharge Planning Updated by [id number]: Ibrahima Nelson on 03/15/19 6:[address] Patient Name: MANA SAXENA Encounter No: [id number] : 1940 Primary Insurance: AETNA MEDICARE PPO or HMO Anticipated DC Date: 02-24-2019 Planned Disposition: [facility]iary Facility External Planned Provider:[facility], MEDICARE REHAB BED DCP follow-up note: CM NOTIFIED [facility] THAT PT MAY DISCHARGE TO REHAB TODAY. CM FAXED UPDATE WITH THERAPY NOTES TO [facility]IA [facility] AT [phone]. CM WAITING ADMISSION DETERMINATION AND INSURANCE AUTHORIZATION FOR REHAB AT [facility] IN [place]. Ibrahima Nelson CASE MANAGEMENT DCP- Discharge Planning Updated by [id number]: Ibrahima Nelson on 03/12/19 3:[address] Patient Name: MANA SAXENA Encounter No: [id number] : 1940 Primary Insurance: AETNA MEDICARE PPO or HMO Anticipated DC Date: 02-24-2019 Planned Disposition: Penitentiary Facility External Planned Provider: [facility], MEDICARE REHAB BED DCP follow-up note: CM RECEIVED CALL FROM [facility]; REFERRAL WAS RECEIVED, PT'S INSURANCE WILL PAY OUT OF NETWORK BENEFITS JUST THE SAME IN NETWORK TO [facility]. PT WILL NEED THERAPY NOTES WITH PATIENT PARTICIPATION TO GET INSURANCE AUTHORIZATION FOR REHAB. PT NEEDS THERAPY NOTES DOCUMENTING PATIENT PARTICIPATION FOR INSURANCE TO AUTHORIZE . CM WAITING ADMISSION DETERMINATION AND INSURANCE AUTHORIZATION FOR REHAB AT [facility]. FATOUMATA Bhatt MANAGEMENT DCP- Discharge Planning Updated by [id number]: Ibrahima Nelson on 03/11/19 1:[address] Patient Name: MANA SAXENA Encounter No: [id number] : 1940 Primary Insurance: AETNA MEDICARE PPO or HMO Anticipated DC Date: 02-24-2019 Planned Disposition: Penitentiary Facility External Planned Provider: [facility], MEDICARE REHAB BED DCP follow-up note: CM RECEIVED CALL FROM [facility], THEY ARE OUT OF INSURANCE NETWORK AND CANNOT ACCEPT PT. CM SPOKE TO PT AND SPOUSE IN ROOM. REPORTS IT IS OK TO SEND REFERRAL TO [facility] AND IF THEY DON'T ACCEPT, ANY IN NETWORK FACILITY WILL HAVE TO DO, JUST NOT [facility]. CHOICE LETTER COMPLETED. QUEEN ODESSA PROVIDED INSURANCE CUSTOMER SERVICES NUMBER OF AND WEBSITE ADDRESS "[email or web address]" FOR CM USE IF NEEDED. CM NOTIFIED [facility] OF [facility] OF REHAB REFERRAL, . CM FAXED REFERRAL TO [facility]IA [place] AT [phone]. CM WAITING ADMISSION DETERMINATION AND INSURANCE AUTHORIZATION FOR REHAB AT [facility]. FATOUMATA Bhatt DCP- Discharge Planning Updated by [id number]: Ibrahima Nelson on 03/10/19 2:[address] Patient Name: MANA SAXENA Encounter No: [id number] : 1940 Primary Insurance: AETNA MEDICARE PPO or HMO Anticipated DC Date: 02-24-2019 Planned Disposition: Penitentiary Facility External Planned Provider[facility], MED[facility]ARE REHAB BED DCP follow-up note: CM FAXED UDPATE WITH OT EVALUATION TO UBALDO AT [facility] AT [phone]. [facility] IS TRYING TO GET APPROVAL FOR OUT OF NETWORK SKILLED REHAB BENEFITS. CM WAITING ADMISSION DETERMINATION FROM [facility]. PT WILL NEED TO HAVE INSURANCE AUTHORIZATION FOR REHAB SERVICES. IBRAHIMA NELSON CASE MANAGEMENT Appended by Ibrahima Nelson on 03/10/2019 15:03 CDT: CM RECEIVED CALL FROM UBALDO MADSEN [facility], , WHO INFORMED CM THAT THEY ARE STILL TRYING TO CONNECT WITH PT'S INSURANCE COMPANY TO REQUEST AUTHORIZATION OF SERVICES. CM PROVIDED PT'S SOCIAL SECURITY NUMBER AND FAXED UDPATE TO UBALDO AT [facility] AT [phone]. [facility] IS TRYING TO GET APPROVAL FOR OUT OF NETWORK SKILLED REHAB BENEFITS. CM WAITING ADMISSION DETERMINATION FROM [facility]. PT WILL NEED TO HAVE INSURANCE AUTHORIZATION FOR REHAB SERVICES. IBRAHIMA NELSON CASE MANAGEMENT DCP- Discharge Planning Updated by [id number]: Ibrahima Nelson on 03/09/19 10:[address] Patient Name: MANA SAXENA Encounter No: [id number] : 1940 Primary Insurance: AETNA MEDICARE PPO or HMO Anticipated DC Date: 02-24-2019 Planned Disposition: Penitentiary Facility External Planned Provider:[facility], MEDICARE REHAB BED DCP follow-up note: CM REVIEWED CHART, OBTAINED ORDER FOR OCCUPATIONAL THERAPY EVALUATION. CM FA[facility]ED UPD[facility], . CM RECEIVED CALL FROM UBALDO OF [facility], , [facility] IS NOT IN NETWORK WITH PT'S INSURANCE AND THEY HAVE SUBMITTED TO INSURANCE TO SEE IF INSURANCE WILL COVER REHAB AT [facility]. CM WAITING ADMISSION DETERMINATION FROM [facility]. PT WILL NEED TO HAVE INSURANCE AUTHORIZATION FOR REHAB SERVICES. IBRAHIMA NELSON CASE VERO DCP- Discharge Planning Updated by [id number]: Ibrahima Nelson on 03/03/19 9:[address] Patient Name: MANA SAXENA Encounter No: [id number] : 1940 Primary Insurance: AETNA MEDICARE PPO or HMO Anticipated DC Date: 02-24-2019 Planned Disposition: Penitentiary Facility External Planned Provider: [facility], MEDICARE REHAB BED DCP follow-up note: CM RECEIVED CALL FROM [facility] IN[facility], UPDATE PROVIDED VIA PHONE; [facility]AS CANCELLED REFERRAL AND INSTRUCTED CM TO SEND REFERRAL WHEN PT IS BETTER AND IF PT STILL NEEDS INPATIENT REHAB SERVICES. CM WAITING ADMISSION DETERMINATION FROM [facility] FOR [facility]HAB OR PROFESSIONAL HEALTHCARE REPRESENTATIVE CARE. PT WILL NEED TO HAVE INSURANCE AUTHORIZATION WHEN OCCUPATIONAL THERAPY EVALUATION HAS BEEN COMPLETED AND RECEIVED BY LONG-TERM FACILITY. FATOUMATA BHATT DCP- Discharge Planning Updated by [id number]: Ibrahima Nelson on 03/02/19 10:[address] Patient Name: MANA SAXENA Encounter No: [id number] : 1940 Primary Insurance: AETNA MEDICARE PPO or HMO Anticipated DC Date: 02-24-2019 Planned Disposition: Inpatient Rehab External Planned Provider: [facility] REH[facility] DCP follow-up note: CM RECEIVED CALL FROM IAN OF [facility], THEY HAVE ACCEPTED MEDICALLY AND WILL SUBMIT TO INSURANCE FOR AUTHORIZATION FOR INPATIENT REHAB SERVICES. CM ADVISED THAT PT HAD MOVED TO ICU THIS MORNING AND THAT PT HAS BEEN REFUSING THERAPY SERVICES AND FURTHER THAT OCCUPATIONAL THERAPY EVALUATION HAS NOT YET BEEN COMPLETED. IAN WILL FOLLOW UP WITH CALL TO PT'S TO DISCUSS COMPLIANCE WITH THERAPY SERVICES TO SEE IF THE SPOUSE CAN SPEAK TO PT. CM WAITING RETURN CALL FROM PT'S SPOUSE, QUEEN ODESSA. [facility] WILL SUBMIT TO PT'S INSURANCE COMPANY FOR INPATIENT REHAB AUTHORIZATION WHEN OCCUPATIONAL THERAPY EVALUATION HAS BEEN COMPLETED AND RECEIVED. CM WAITING ADMISSION DETERMINATION FROM [facility] OR REHAB OR SENIOR LIVING CARE. PT WILL NEED TO HAVE INSURANCE AUTHORIZATION WHEN OCCUPATIONAL THERAPY EVALUATION HAS BEEN COMPLETED AND RECEIVED BY LONG-TERM FACILITY. FATOUMATA BHATT DCP- Discharge Planning Updated by [id number]: Ibrahima Nelson on 03/01/19 3:[address] Patient Name: MANA SAXENA Encounter No: [id number] : 1940 Primary Insurance: AETNA MEDICARE PPO or HMO Anticipated DC Date: 02-24-2019 Planned Disposition: Inpatient Rehab External Planned Provider: [facility] RE[facility] DCP follow-up note: CM REVIEWED CHART, OCCUPATIONAL THERAPY EVALUATION HAS STILL NOT BEEN COMPLETED / DOCUMENTED. CM FAXED BASIC REFERRAL TO [facility] FOR INPATIENT REHAB CONSIDERATION AT [phone]. CM TO FAX UPDATE WITH OCCUPATIONAL THERAPY EVALUATION WHEN IT IS COMPLETED AND DOCUMENTED. Ibrahima Nelson CASE MANAGEMENT Appended by Ibrahima Nelson on 03/01/2019 16:14 CDT: CM REVIEWED CHART, PT REFUSED PHYSICAL THERAPY TODAY AND THERAPY HAS SIGNED OFF DUE TO PT REFUSAL. OCCUPATIONAL THERAPY EVALUATION STILL NOT COMPLETED. IT IS CM'S EXPERIENCE THAT INSURANCE WILL NOT PAY FOR REHAB SERVICES UNLESS PT IS PARTICIPATING, WHICH THIS PT IS NOT. CM SPOKE TO PT IN ROOM WHO REPORTS HE DID NOT UNDERSTAND; PT STATES HE IS GOING HOME. WHEN CM EXPLAINED IN SLOW DETAIL THAT PT'S SPOUSE WANTS HIM TO GO TO REHAB, PT YELLS AT CM THAT SOMETHING MUST BE WRONG AND TO CALL . CM CALLED QUEEN ODESSA, SPOUSE, , LEFT MESSAGE ASKING FOR RETURN CALL. CM FAXED REFERRAL TO [facility] [place] THAT THEY CAN GET AUTHORIZATION FOR REHAB WITH PT'S REFUSAL TO DO THERAPY OR AT LEAST CONSIDER FOR SENIOR LIVING CARE. CM WAITING RETURN CALL FROM PT'S SPOUSE, QUEEN ODESSA. CM WAITING ADMISSION DETERMINATION FROM [facility] OR REHAB OR PROFESSIONAL HEALTHCARE REPRESENTATIVE CARE. IBRAHIMA NELSON, CASE MANAGEMENT DCP- Discharge Planning Updated by [id number]: Ibrahima Nelson on 02/26/19 12:[address] Patient Name: MANA SAXENA Encounter No: [id number] : 1940 Primary Insurance: AETNA MEDICARE PPO or HMO Anticipated DC Date: 02-24-2019 Planned Disposition: Inpatient Rehab External Planned Provider: [facility] INPATIENT REHAB DCP follow-up note: CM RECEIVED CALL FROM AYUSH OF [facility]; SHE HAD CALLED PT'S SPOUSE TO ARRANGE DELIVERY OF MANUAL WHEELCHAIR AND SPOUSE REFUSED IT STATING THAT SHE CANNOT PHYSICALLY PUSH PT IN A WHEELCHAIR AND REQEUSTED A POWER CHAIR. CM ATTEMPTED TO SEE PT'S SPOUSE IN ROOM, SHE WAS NOT THERE. CM CALLED QUEEN ODESSA, . CM INFORMED THAT AN ELECTRIC WHEELCHAIR REQUIRES VERY DETAILED AND LENGHTY DOCUMENTATION THAT CANNOT BE DONE FROM HOSPITAL, REFERRED HER TO PT'S PRIMARY CARE DOCTOR. CM DISCUSSED AVAILABILITY OF REHAB SERVICES, PROVIDERS AND LOCATIONS. REPORTS SHE IS OLDER THAN PT AND IS HAVING TROUBLE CARING FOR PT IN HIS WEAKENED STATE AND WOULD LIKE REHAB AT [facility] FIRST CHOICE AND [facility], [facility] THIRD BUT WILL NOT CONSIDER [facility] IN [place]. CHOICE LETTER COMPLETED. CHART REVIEWED, PHYSICAL THERAPY EVALUATION STILL PENDING, NO OCCUPATIONAL THERAPY HAD BEEN ORDERED. CM OBTAINED ORDER FOR OCCUPATIONAL THERAPY EVALUATION. CM TO PROVIDE REFERRAL TO [facility] FOR INPATIENT REHAB CONSIDERATION ONCE PHYSICAL AND OCCUPATIONAL THERAPY EVALUATIONS ARE COMPLETED. Ibrahima Nelson, CASE MANAGEMENT DCP- Discharge Planning Updated by [id number]: Ibrahima Nelson on 02/23/19 3:[address] Patient Name: MANA SAXENA Admission Status: ER Accout number: [id number] Admission Date: 02-22-2019 : 1940 Admission Diagnosis: Attending: CASEY NAIDU Current LOS: 1 Anticipated DC Date: 02-24-2019 Planned Disposition: Home with Home Health Primary Insurance: UNINSURED DISCOUNT PLAN PLANNED EXTERNAL PROVIDER: [facility] Discharge Planning Comments: CM RECEIVED ORDER FOR HOME HEALTH. CM MET WITH PT AND SPOUSE IN ROOM TO DISCUSS DISCHARGE PLANNING AND NEEDS. MANA SAXENA provided verbal consent to discuss current and ongoing needs with/in the presence of: SPOUSE, . ANSWERED ALL QUESTIONS. PT LIVING AT HOME DEPENDENTLY WITH SPOUSE WHO ASSISTS WITH MEDICATIONS. PT HAS BEEN GETTING WEAKER AND NOW NEEDS ASSISTANCE WITH BATHING. PT HAS WALKER WITH WHEELS, SEAT AND BRAKES AND NO MEDICAL EQUIPMENT PROVIDER PREFERENCE. PT HAS HOME HEALTH WITH [facility] FOR NURSING AND PHYSICAL THERAPY. CM DISCUSSED AVAILABILITY OF HOME HEALTH, REHAB SERVICES AND MEDICAL EQUIPMENT. PT'S SPOUSE WANTS [facility] RESUMPTION AND REPORTS NEEDING A WHEELCHAIR PT IS NO LONGER ABLE TO CLIMB THE STEPS TO GET ON THE MEDICAID BUS FOR DIALYSIS TRANSPORTATION. PT GOES TO DIALYSIS IN [place] ON MWF SCHEDULE. PT'S FAMILY TO TRANSPORT HOME AT DISCHARGE. CHOICE SIGNED FOR [facility], CHOICE FOR NO PREFERENCE FOR MEDICAL EQUIPMENT PROVIDER COMPLETED BY [facility]. CM COLLECTED REGISTRATION INFORMATION AND FORWARDED TO [facility] OF REGISTRATION. CM SPOKE TO BOWEN TEJADA WHO PROVIDED ORDER FOR WHEELCHAIR. CM CALLED [facility], , SPOKE TO AYUSH AND PROVIDED REFERRAL INFORMATION FOR WHEELCHAIR. CM FAXED ORDER AND CHART INFORMATION TO [facility] AT [phone]. [facility] TO PROCESS ORDER FOR WHEELCHAIR DELIVERY TO PT IF QUALIFIES; PT'S INSURANCE REQUIRES PRIOR AUTHORIZATION. CM CALLED [facility], , SPOKE TO KURT, PROVIDED REFERRAL INFORMATION, PT IS ON SERVICES WITH [facility] ALREADY.. CM FAXED REFERRAL INFORMATION TO [facility], . FOR DISCHARGE, NOTIFY [facility] AT [phone]; FAX DISCHARGE INFORMATION TO [facility] AT [phone]. Communications Equipment Installer: Ibrahima Nelson DCPIA - Discharge Planning Initial Assessment Updated by [id number]: Ibrahima Nelson on 02/23/19 3:52 pm * Is the patient Alert and Oriented? Yes * How many steps to enter\\exit or inside your home? RAMP * PCP DR. VIC PAREDES IN [place] * Pharmacy [facility] IN [place] * Preadmission Environment Home with Family * ADLs Partial Dependent * Partial ADLs (Assistance needed) Bathing Medication Management * Equipment Rolling Walker * Other Equipment ROLLING WALKER WITH SEAT AND BRAKES NO MEDICAL EQUIPMENT PROVIDER PREFERENCE * List name and contact numbers for known caregivers / representatives who currently or will assist patient after discharge: QUEEN ODESSA, SPOUSE, CADEN ANDERSON, * Verbal permission to speak to the caregivers and representatives has been obtained from the patient. Yes * Community resources currently utilized Home Health * Please name any agencies selected above. [facility], NURSING AND PHYSICAL THERAPY * Additional services required to return to the preadmission environment? No * Can the patient safely return to the preadmission environment? Yes * Has this patient been hospitalized within the prior 30 days at any hospital? Yes Coverage Notice Reviewer: [id number] Edilia Nelson Notice Issued Date-Time: 02/23/2019 15:15 Notice Type: Patient Choice Letter Notice Delivered To: Family Member Relationship to Patient: Spouse Coat Tailor Name: QUEEN ODESSA Delivery Method: HAND - Hand Delivered Cristina Days: Prior Verbal Notification: Recipient Understood Notice: Yes Recipient Signature: Yes Med Rec Note Co-signed by Attending: Coverage Notice Comment: ANY MEDICAL EQUIPMENT COMPANY SERVICING [place] // [facility] Reviewer: [id number] Edilia Nelson Notice Issued Date-Time: 02/26/2019 12:00 Notice Type: Patient Choice Letter Notice Delivered To: Family Member Relationship to Patient: Spouse Coat Tailor Name: QUEEN ODESSA Delivery Method: PHONE - Phone Cristina Days: Prior Verbal Notification: Recipient Understood Notice: Yes Recipient Signature: Med Rec Note Co-signed by Attending: Coverage Notice Comment: [facility] 2- [facility] 3-[facility] NOT [facility]!! Reviewer: [id number] Edilia Nelson Notice Issued Date-Time: 03/11/2019 15:50 Notice Type: Patient Choice Letter Notice Delivered To: Family Member Relationship to Patient: Spouse Coat Tailor Name: QUEEN ODESSA Delivery Method: HAND - Hand Delivered Cristina Days: Prior Verbal Notification: Recipient Understood Notice: Yes Recipient Signature: Med Rec Note Co-signed by Attending: Coverage Notice Comment: [facility] OR ANY IN NETWORK LONG-TERM FOR REHAB Last DP export: 03/19/19 4:46 p Patient Name: MANA SAXENA Page 26763 at 1131 All edits/amendments must be made on the electronic document DICTATION DATE: 03/23/191129 OFFSET PRESS OPERATOR APPRENTICE: GRACE 03/23/19 1130 RPT#: [id number] DC DATE: STATUS: ADM IN [facility] [address] [place] [address] END OF REPORT
[2019-03-23 11:41] VITALS: BP 138/60
--- NOTE | 2019-03-23 12:18 | NUR ---
Nutrition follow-up: Pt walking with PT and noted much stronger than last week Diet: ADA consistent CHO PO intake ~50% of meals Wt: 157# +BM Will continue to encourage increased po intake RDN following.
--- NOTE | 2019-03-23 14:30 | NUR ---
PATIENT IS STABLE AND UNCHAGED. WILL CONTINUE TO MONITOR.
[2019-03-23 17:20] VITALS: BP 141/63
--- NOTE | 2019-03-23 19:22 | NUR ---
PT IS RESTING IN BED. NAME AND DATE PLACED ON BOARD. PT STATES THAT HE IS WANTING A SANDWICH. WILL CHECK ORDERS AND TRY TO OBTAIN ONE. PT DENIES ANY OTHER NEEDS. NO S/S OF DISTRESS. WILL CPOC
[2019-03-23 20:00] VITALS: BP 104/52
--- NOTE | 2019-03-23 21:50 | NUR ---
FSBS IS 119, NO INSULIN NEEDED. REPOSITIONED PT IN BED. PT DENIES ANY OTHER NEEDS. WILL CPOC
[2019-03-24] VITALS (7 sets, daily range): BP systolic 110–122; BP diastolic 55–72; Ht 180.3 cm; Wt 97.7 kg
--- NOTE | 2019-03-24 00:29 | NUR ---
FSBS IS 164 PT BECOMES HYPOGLYCEMIC QUICKLY. NOT COVERING 164 AT THIS TIME. WILL CHECK AGAIN AT 0400
--- NOTE | 2019-03-24 01:00 | NUR ---
PT UP TO CHAIR, CHANGING BEDDING AND GOWN. PT WANTING TO SIT IN CHAIR FOR A WHILE. WILL CPOC
--- NOTE | 2019-03-24 02:27 | NUR ---
PT STILL UP IN CHAIR. SMALL BM. DENIES ANY NEEDS. NO S/S OF DISTRESS. WILL CPOC
--- NOTE | 2019-03-24 03:00 | NUR ---
PT BACK TO BED. PT DENIES ANY NEEDS. NO S/S OF DISTRESS. PT WILL CALL FOR ASSIST WHEN NEEDED. BEDLOW AND CALL LIGHT IN REACH. WILL CPOC
--- NOTE | 2019-03-24 04:42 | NUR ---
FSBS IS 283 6 UNITS GIVEN ORDERED. SNACK REFUSED. PT DENIES ANY NEEDS. NO S/S OF DISTRESS. PT WILL CALL FOR ASSIST WHEN NEEDED. WILL CPOC
--- NOTE | 2019-03-24 06:49 | NUR ---
PT RESTING IN BED. COMPLAINS ABOUT WANTING TO GO HOME. PT HAS NO S/S OF DISTRESS. BEDLOW AND CALL LIGHT IN REACH. NOURISHMENT WITHIN REACH. PT WILL CALL FOR ASSIST WHEN NEEDED. WILL CPOC
[2019-03-24 07:09] LABS: BASOPHILS 0.2 % (0-2); EOSINOPHILS 0.6 % (0-7); HEMATOCRIT 27.1 % (42.0-54.0); HEMOGLOBIN 8.8 g/dL (13.5-17.5); IMMATURE GRANULOCYTES 0.2 % (0-5); MCH 30.2 pg (26.0-34.0); MCHC 32.5 g/dL (31.0-37.0); MCV 93.1 fL (80.0-100.0); MEAN PLATELET VOLUME 10.2 fL (7.4-10.4); PLATELET COUNT 160 10x3/uL (130-400); RBC 2.91 10x6/uL (4.20-6.10); RDW 21.7 % (11.5-14.5)
--- NOTE | 2019-03-24 07:10 | NUR ---
REPORT RECEIVED FROM ORTHOPEDIC SHOE FITTER AND PATIENT CARE ASSUMED. PATIENT AWAKE, ALERT AND SITTING UP IN BEDSIDE CHAIR. PATIENT IS STABLE AND VSS. PATIENT DENIES ANY NEEDS OR PAIN. WILL CONTINUE WITH PLAN OF CARE. CALL LIGHT IN REACH.
[2019-03-24 07:31] LABS: ALBUMIN 2.7 g/dL (3.4-5.0); ANION GAP 15.4 mmol/L (8-16); BILIRUBIN - TOTAL 0.55 mg/dL (0.2-1.3); CALCIUM 8.7 mg/dL (8.5-10.1); CARBON DIOXIDE 24.1 mmol/L (21.0-32.0); CREATININE - SERUM 5.6 mg/dL (0.6-1.3); PHOSPHOROUS 1.7 mg/dL (2.5-4.9); POTASSIUM - SERUM 4.5 mmol/L (3.5-5.1); PROTEIN - SERUM 6.5 g/dL (6.4-8.2)
--- NOTE | 2019-03-24 10:15 | NUR ---
PATIENT IS STABLE AND VSS. HYDROCORTISONE APPLIED TO PATIENTS BACK FOR ITCHING. PATIENT TO DIALYSIS VIA [facility]ED AND [facility]OS[facility]ERSON[facility]EL
--- NOTE | 2019-03-24 13:13 | MORECARE ---
CASE MANAGEMENT DISCHARGE SUMMARY PATIENT: MANA SAXENA UNIT: [id number] ADM DATE: 02/24/19 AGE: 78 : 38 SEX: M ROOM/BED: D.2101 AUTHOR: BJ,DOC PHYSICIAN: REFERRING PHYSICIAN: CASEY NAIDU MD DATE OF SERVICE: 03/24/19 Discharge Plan Patient Name: MANA SAXENA Facility: [facility]:[place] : 1940 Planned Disposition: Nursing Facility [facility] Cert Anticipated Discharge Date: 03/22/19 Discharge Date: Expected LOS: 26 Initial Reviewer: [id number] Initial Review Date: 02/22/2019 Generated: 03/24/19 2:13 pm Comments DCP- Discharge Planning Updated by [id number]: Ibrahima Nelson on 03/24/19 12:[address] Patient Name: MANA SAXENA Encounter No: [id number] : 1940 Primary Insurance: AETNA MEDICARE PPO or HMO Anticipated DC Date: 03-22-2019 Planned Disposition: Nursing Facility [facility] Cert External Planned Provider:[facility], MEDICARE REHAB BED DCP follow-up note: CM RECEIVED CALL FROM QUEEN ODESSA, PT'S SPOUSE, WHO HAS CALLED INSURANCE AND ASKED FOR EXPEDITED SERVICE ON AUTHORIZATION. CM FAXED UPDATE TO PUJA OF [facility], WITH UPDATED BLOOD CULTURE RESULT OF NEGATIVE ON DAY FIVE TO [facility] . CM RECEIVED CALL FROM [facility] WHO REQUESTED UPDATE, CM FAXED REQUEST TO [facility] AT [phone]. PT'S SPOUSE REFUSING SKILLED NURSING CARE AND INSISTING ON SKILLED NUSING REHAB. [facility] NOW WANTS NEW BLOOD CULTURE RESULT SHOWING NO INFECTION. CM WAITING INSURANCE FOR AUTHORIZATION. OF REHAB SERVICES AT [facility]. FATOUMATA BHATT DCP- Discharge Planning Updated by [id number]: Ibrahima Nelson on 03/23/19 10:[address] Patient Name: MANA SAXENA Encounter No: [id number] : 1940 Primary Insurance: AETNA MEDICARE PPO or HMO Anticipated DC Date: 03-22-2019 Planned Disposition: Nursing Facility [facility] Cert External Planned Provider: [facility], MEDICARE REHAB BED DCP follow-up note: CM FAXED UPDATE TO PUJA OF [facility], WITH UPDATED BLOOD CULTURE RESULT OF NEGATIVE ON DAY FOUR TO [facility] VIA PUJA AT [phone]. PT'S SPOUSE REFUSING FRONT DESK CARE AND INSISTING ON SKILLED NUSING REHAB. [facility] NOW WANTS NEW BLOOD CULTURE RESULT SHOWING NO INFECTION. CM WAITING INSURANCE FOR AUTHORIZATION. OF REHAB SERVICES AT [facility]. FATOUMATA BHATT DCP- Discharge Planning Updated by [id number]: Ibrahima Nelson on 03/19/19 4:[address] Patient Name: MANA SAXENA Encounter No: [id number] : 1940 Primary Insurance: AETNA MEDICARE PPO or HMO Anticipated DC Date: 03-22-2019 Planned Disposition: Nursing Facility [facility] Cert External Planned Provider: [facility], MEDICARE REHAB BED DCP follow-up note: CM FAXED UPDATE TO [facility], . PT'S SPOUSE REFUSING FRONT DESK CARE AND INSISTING ON SKILLED NUSING REHAB. [facility] NOW WANTS NEW BLOOD CULTURE RESULT SHOWING NO INFECTION PRIOR TO SENDING TO INSURANCE FOR AUTHORIZATION. CM WAITING BLOOD CULTURE RESULT. IBRAHIMA NELSONCASE MANAGEMENT Appended by Ibrahima Nelson on 03/19/2019 17:40 CDT: CM FAXED PRELIMINARY BLOOD CULTURE RESULT OF NEGATIVE ON DAY ONE TO [facility] VIA [facility] AT [phone]. PT'S SPOUSE REFUSING FRONT DESK CARE AND INSISTING ON SKILLED NUSING REHAB. [facility] NOW WANTS NEW BLOOD CULTURE RESULT SHOWING NO INFECTION PRIOR TO SENDING TO INSURANCE FOR AUTHORIZATION. CM WAITING FINAL BLOOD CULTURE RESULT. FATOUMATA BHATT DCP- Discharge Planning Updated by [id number]: Ibrahima Nelson on 03/18/19 10:[address] Patient Name: MANA SAXENA Encounter No: [id number] : 1940 Primary Insurance: AETNA MEDICARE PPO or HMO Anticipated DC Date: 03-22-2019 Planned Disposition: Nursing Facility [facility] Cert External Planned Provider: [facility], MEDICARE REHAB BED DCP follow-up note: CM FAXED UPDATE TO [facility], . CM RECEIVED MESSAGE FROM PUJA WHO INFORMED CM THAT [facility] PLANS TO ACCEPT BUT WILL NOT SEND FOR INSURANCE AUTHORIZATION OR MAKE FINAL ADMISSION DETERMINATION UNTIL NEW BLOOD CULTURE IS DONE TO SHOW PT IS CLEAR OF INFECTION. CM NOTIFIED BOWEN TEJADA. CM MET WITH PT AND FAMILY, DISCUSSED ABOVE. PT'S SPOUSE REFUSING FRONT DESK CARE AND INSISTING ON SKILLED NUSING REHAB. [facility] NOW WANTS NEW BLOOD CULTURE RESULT SHOWING NO INFECTION PRIOR TO SENDING TO INSURANCE FOR AUTHORIZATION. CM WAITING BLOOD CULTURE RESULT. IBRAHIMA NELSONCASE MANAGEMENT DCP- Discharge Planning Updated by [id number]: Ibrahima Nelson on 03/17/19 7:[address] Patient Name: MANA SAXENA Encounter No: [id number] : 1940 Primary Insurance: AETNA MEDICARE PPO or HMO Anticipated DC Date: 03-15-2019 Planned Disposition: Nursing Facility [facility] Cert External Planned Provider: [facility], MEDICARE REHAB BED DCP follow-up note: CM FAXED UPDATE TO [facility], . PT'S SPOUSE REFUSING FRONT DESK CARE AND INSISTING ON SKILLED NUSING REHAB WHICH REQUIRES PT TO PARTICIPATE IN THERAPY SERVICES. [facility] WILL HAVE ENOUGH PARTICIPATION TO SECURE INSURANCE AUTHORIZATION FOR REHAB PLACEMENT AT [facility]. IBRAHIMA NELSONCASE MANAGEMENT DCP- Discharge Planning Updated by [id number]: Ibrahima Nelson on 03/16/19 3:[address] Patient Name: MANA SAXENA Encounter No: [id number] : 4 Primary Insurance: AETNA MEDICARE PPO or HM Anticipated DC Date: 03-15-2019 Planned Disposition: Nursing Facility [facility] Cert External Planned Provider: [facility], LONG TERM CARE MEDICAID BED DCP follow-up note: CM FAXED UPDATE TO [facility], . PT'S SPOUSE REFUSING SKILLED NURSING CARE AND INSISTING ON SKILLED NUSING REHAB WHICH REQUIRES PT TO PARTICIPATE IN THERAPY SERVICES. CM TO SEND THERAPY UPDATE TOMORROW, [facility] WILL HAVE ENOUGH PARTICIPATION TO SECURE REHAB PLACEMENT AT [facility]. IBRAHIMA NELSONCASE MANAGEMENT DCP- Discharge Planning Updated by [id number]: Ibrahima Nelson on 03/15/19 1:[address] Patient Name: MANA SAXENA Encounter No: [id number] : 1940 Primary Insurance: AETNA MEDICARE PPO or HMO Anticipated DC Date: 03-15-2019 Planned Disposition: Nursing Facility [facility] External Planned Provider: [facility], FRONT DESK CARE MEDICAID BED DCP follow-up note: CM RECEIVED MESSAGE FROM PUJA [facility], PT'S INSURANCE WILL NOT APPROVE REHAB SERVICES PT HAS BEEN REFUSING THERAPY. [facility] WILL ACCEPT FOR SKILLED NURSING CARE IF PT'S FAMILY AGREES AND WILL WORK OUT FINANCIAL ARRANGEMENTS. CM CALLED AND NOTIFIED QUEEN ODESSA AT [phone] WHO INFORMED CM THAT SHE IS NOT ABLE TO TAKE CARE OF PT AT HOME BY HERSELF AND WILL DISCUSS FRONT DESK CARE ARRANGEMENTS WITH [facility]. CM NOTIFIED [facility]JA OF [facility]. [facility] OCCUPATIONAL SAFETY AND HEALTH MANAGER CALLING PT'S NOW TO DISCUSS FINANCIAL ARRANGEMENTS FOR FRONT DESK CARE PLACEMENT. CM WAITING FAMILY AND HALFWAY TO WORK OUT FINANCIAL ARRANGEMENTS FOR FRONT DESK CARE HALFWAY PLACEMENT. Ibrahima Nelson, CASE MANAGEMENT Appended by Ibrahima Nelson on 03/15/2019 14:55 CDT: HODA RECEIVED CALL FROM QUEEN ODESSA, , WHO STATED THAT SHE DID NOT KNOW THAT PT HAD TO PARTICIPATE WITH THERAPY FOR INSURANCE TO PAY FOR HIM TO GO TO REHAB. STATES THAT SHE IS COMING TO HOSPITAL THIS AFTERNOON TO SPEAK TO PT AND TELL HIM HE HAS TO PARTIPATE WITH THERAPY SO HE CAN GO TO REHAB AT [facility]. HODA EXPLAINED [facility], STATES SHE DOES NOT WANT PT IN FRONT DESK CARE AND WILL COME AND TELL PT TO PARTICIPATE IN THERAPY AT [facility] SO HE CAN GO TO REHAB AT [facility]. HODA NOTIFIED BOWEN TEJADA. CM WAITING ON PT'S SPOUSE TO SPEAK TO HIM IN THE ROOM REGARDING PARTICIPATING WITH HOSPITAL THERAPY SO INSURANCE WILL PAY FOR SKILLED REHAB; PT'S SPOUSE REFUSING FRONT DESK CARE AND INSISTING ON SKILLED NUSING REHAB WHICH REQUIRES PT TO PARTICIPATE IN THERAPY SERVICES. CM TO CONTINUE TO FOLLOW AND ASSIST. IBRAHIMA NELSON,CASE MANAGEMENT DCP- Discharge Planning Updated by [id number]: Ibrahima Nelson on 03/15/19 6:[address] Patient Name: MANA SAXENA Encounter No: [id number] : 1940 Primary Insurance: AETNA MEDICARE PPO or HMO Anticipated DC Date: 02-24-2019 Planned Disposition: Custodial Facility External Planned Provider:[facility], MEDICARE REHAB BED DCP follow-up note: CM NOTIFIED [facility] THAT PT MAY DISCHARGE TO REHAB TODAY. CM FAXED UPDATE WITH THERAPY NOTES TO [facility] VIA PUJA AT [phone]. CM WAITING ADMISSION DETERMINATION AND INSURANCE AUTHORIZATION FOR REHAB AT [facility]. Ibrahima Nelson, CASE MANAGEMENT DCP- Discharge Planning Updated by [id number]: Ibrahima Nelson on 03/12/19 3:[address] Patient Name: MANA SAXENA Encounter No: [id number] : 1940 Primary Insurance: AETNA MEDICARE PPO or HMO Anticipated DC Date: 02-24-2019 Planned Disposition: Custodial Facility External Planned Provider: [facility], MEDICARE REHAB BED DCP follow-up note: CM RECEIVED CALL FROM PUJA [facility]; REFERRAL WAS RECEIVED, PT'S INSURANCE WILL PAY OUT OF NETWORK BENEFITS JUST THE SAME IN NETWORK TO [facility]. PT WILL NEED THERAPY NOTES WITH PATIENT PARTICIPATION TO GET INSURANCE AUTHORIZATION FOR REHAB. PT NEEDS THERAPY NOTES DOCUMENTING PATIENT PARTICIPATION FOR INSURANCE TO AUTHORIZE . CM WAITING ADMISSION DETERMINATION AND INSURANCE AUTHORIZATION FOR REHAB AT [facility]. Ibrahima Nelson, CASE MANAGEMENT DCP- Discharge Planning Updated by [id number]: Ibrahima Nelson on 03/11/19 1:[address] Patient Name: MANA SAXENA Encounter No: [id number] : 1940 Primary Insurance: AETNA MEDICARE PPO or HMO Anticipated DC Date: 02-24-2019 Planned Disposition: Custodial Facility External Planned Provider: [facility], MEDICARE REHAB BED DCP follow-up note: CM RECEIVED CALL FROM [facility], THEY ARE OUT OF INSURANCE NETWORK AND CANNOT ACCEPT PT. CM SPOKE TO PT AND SPOUSE IN ROOM. WANG REPORTS IT IS OK TO SEND REFERRAL TO [facility] AND IF THEY DON'T ACCEPT, ANY IN NETWORK FACILITY WILL HAVE TO DO, JUST NOT [facility]. CHOICE LETTER COMPLETED. SAXENA PROVIDED INSURANCE CUSTOMER SERVICES NUMBER OF AND WEBSITE ADDRESS "[email or web address]" FOR CM USE IF NEEDED. CM NOTIFIED [facility] OF REHAB REFERRAL, . CM FAXED REFERRAL TO [facility] VIA [employer] AT [phone]. CM WAITING ADMISSION DETERMINATION AND INSURANCE AUTHORIZATION FOR REHAB AT [facility] IN [place]. FATOUMATA Bhatt DCP- Discharge Planning Updated by [id number]: Ibrahima Nelson on 03/10/19 2:[address] Patient Name: MANA SAXENA Encounter No: [id number] : 1940 Primary Insurance: AETNA MEDICARE PPO or HMO Anticipated DC Date: 02-24-2019 Planned Disposition: Custodial Facility External Planned Provider:[facility], MEDICARE REHAB BED DCP follow-up note: CM FAXED UDPATE WITH OT EVALUATION TO [facility] AT [phone]. [facility] IS TRYING TO GET APPROVAL FOR OUT OF NETWORK SKILLED REHAB BENEFITS. CM WAITING ADMISSION DETERMINATION FROM [facility] FOR REHAB. PT WILL NEED TO HAVE INSURANCE AUTHORIZATION FOR REHAB SERVICES. IBRAHIMA NELSON CASE MANAGEMENT Appended by Ibrahima Nelson on 03/10/2019 15:03 CDT: CM RECEIVED CALL FROM [facility], , WHO INFORMED CM THAT THEY ARE STILL TRYING TO CONNECT WITH PT'S INSURANCE COMPANY TO REQUEST AUTHORIZATION OF SERVICES. CM PROVIDED PT'S SOCIAL SECURITY NUMBER AND [facility] AT [phone]. [facility] IS TRYING TO GET APPROVAL FOR OUT OF NETWORK SKILLED REHAB BENEFITS. CM WAITING ADMISSION DETERMINATION FROM [facility] FOR REHAB. PT WILL NEED TO HAVE INSURANCE AUTHORIZATION FOR REHAB SERVICES. FATOUMATA BHATT DCP- Discharge Planning Updated by [id number]: Ibrahima Nelson on 03/09/19 10:[address] Patient Name: MANA SAXENA Encounter No: [id number] : 1940 Primary Insurance: AETNA MEDICARE PPO or HMO Anticipated DC Date: 02-24-2019 Planned Disposition: Custodial Facility External Planned Provider:[facility], MEDICARE REHAB BED DCP follow-up note: CM REVIEWED CHART, OBTAINED ORDER FOR OCCUPATIONAL THERAPY EVALUATION. CM FA[facility]ED [facility], . CM RECEIVED CALL FROM [facility], , [facility] IS NOT IN NETWORK WITH PT'S INSURANCE AND THEY HAVE SUBMITTED TO INSURANCE TO SEE IF INSURANCE WILL COVER REHAB AT [facility]. CM WAITING ADMISSION DETERMINATION FROM [facility] FOR REHAB. PT WILL NEED TO HAVE INSURANCE AUTHORIZATION FOR REHAB SERVICES. IBRAHIMA NELSON CASE MANAGEMENT DCP- Discharge Planning Updated by [email or web address]: Ibrahima Nelson on 03/03/19 9:[address] Patient Name: MANA SAXENA Encounter No: [id number] : 1940 Primary Insurance: AETNA MEDICARE PPO or HMO Anticipated DC Date: 02-24-2019 Planned Disposition: Custodial Facility External Planned Provider[facility] B[facility] DCP follow-up note: CM RECEIVED CALL FROM PREETHI OF [facility], UPDATE PROVIDED VIA PHONE; DOUGLAS CANCELLED REFERRAL AND INSTRUCTED CM TO SEND REFERRAL WHEN PT IS BETTER AND IF PT STILL NEEDS INPATIENT REHAB SERVICES. CM WAITING ADMISSION DETERMINATION FROM [facility] FOR REHAB OR FRONT DESK CARE. PT WILL NEED TO HAVE INSURANCE AUTHORIZATION WHEN OCCUPATIONAL THERAPY EVALUATION HAS BEEN COMPLETED AND RECEIVED BY ASSISTED FACILITY. IBRAHIMA NELSON CASE MANAGEMENT DCP- Discharge Planning Updated by [id number]: Ibrahima Nelson on 03/02/19 10:[address] Patient Name: MANA SAXENA Encounter No: [id number] : 6 Primary Insurance: AETNA MEDICARE PPO or HMO Anticipated DC Date: 02-24-2019 Planned Disposition: Inpatient Rehab External Planned Provider: [facility] DCP follow-up note: CM RECEIVED CALL FROM IAN OF [facility], THEY HAVE ACCEPTED MEDICALLY AND WILL SUBMIT TO INSURANCE FOR AUTHORIZATION FOR INPATIENT REHAB SERVICES. CM ADVISED THAT PT HAD MOVED TO ICU THIS MORNING AND THAT PT HAS BEEN REFUSING THERAPY SERVICES AND FURTHER THAT OCCUPATIONAL THERAPY EVALUATION HAS NOT YET BEEN COMPLETED. IAN WILL FOLLOW UP WITH CALL TO PT'S TO DISCUSS COMPLIANCE WITH THERAPY SERVICES TO SEE IF THE SPOUSE CAN SPEAK TO PT. CM WAITING RETURN CALL FROM PT'S SPOUSE, QUEEN ODESSA. [facility] WILL SUBMIT TO PT'S INSURANCE COMPANY FOR INPATIENT REHAB AUTHORIZATION WHEN OCCUPATIONAL THERAPY EVALUATION HAS BEEN COMPLETED AND RECEIVED. CM WAITING ADMISSION DETERMINATION FROM [facility] OR REHAB OR SKILLED NURSING CARE. PT WILL NEED TO HAVE INSURANCE AUTHORIZATION WHEN OCCUPATIONAL THERAPY EVALUATION HAS BEEN COMPLETED AND RECEIVED BY ASSISTED FACILITY. FATOUMATA BHATT DCP- Discharge Planning Updated by [id number]: Ibrahima Nelson on 03/01/19 3:[address] Patient Name: MANA SAXENA Encounter No: [id number] : 1940 Primary Insurance: AETNA MEDICARE PPO or HMO Anticipated DC Date: 02-24-2019 Planned Disposition: Inpatient Rehab External Planned Provider: [facility] DCP follow-up note: CM REVIEWED CHART, OCCUPATIONAL THERAPY EVALUATION HAS STILL NOT BEEN COMPLETED / DOCUMENTED. CM FAXED BASIC REFERRAL TO [facility] FOR INPATIENT REHAB CONSIDERATION AT [phone]. CM TO FAX UPDATE WITH OCCUPATIONAL THERAPY EVALUATION WHEN IT IS COMPLETED AND DOCUMENTED. Ibrahima Nelson CASE MANAGEMENT Appended by Ibrahima Nelson on 03/01/2019 16:14 CDT: CM REVIEWED CHART, PT REFUSED PHYSICAL THERAPY TODAY AND THERAPY HAS SIGNED OFF DUE TO PT REFUSAL. OCCUPATIONAL THERAPY EVALUATION STILL NOT COMPLETED. IT IS CM'S EXPERIENCE THAT INSURANCE WILL NOT PAY FOR REHAB SERVICES UNLESS PT IS PARTICIPATING, WHICH THIS PT IS NOT. CM SPOKE TO PT IN ROOM WHO REPORTS HE DID NOT UNDERSTAND; PT STATES HE IS GOING HOME. WHEN CM EXPLAINED IN SLOW DETAIL THAT PT'S SPOUSE WANTS HIM TO GO TO REHAB, PT YELLS AT THAT SOMETHING MUST BE WRONG AND TO CALL . CM CALLED QUEEN ODESSA, SPOUSE, , LEFT MESSAGE ASKING FOR RETURN CALL. CM FAXED REFERRAL TO [facility] [place] THAT THEY CAN GET AUTHORIZATION FOR REHAB WITH PT'S REFUSAL TO DO THERAPY OR AT LEAST CONSIDER FOR FRONT DESK CARE. CM WAITING RETURN CALL FROM PT'S SPOUSE, QUEEN ODESSA. CM WAITING ADMISSION DETERMINATION FROM [facility] OR REHAB OR SKILLED NURSING CARE. FATOUMATA BHATT DCP- Discharge Planning Updated by [id number]: Ibrahima Nelson on 02/26/19 12:[address] Patient Name: MANA SAXENA Encounter No: [id number] : 1940 Primary Insurance: AETNA MEDICARE PPO or HMO Anticipated DC Date: 02-24-2019 Planned Disposition: Inpatient Rehab External Planned Provider: [facility] DCP follow-up note: CM RECEIVED CALL FROM AYUSH OF [facility]; SHE HAD CALLED PT'S SPOUSE TO ARRANGE DELIVERY OF MANUAL WHEELCHAIR AND SPOUSE REFUSED IT STATING THAT SHE CANNOT PHYSICALLY PUSH PT IN A WHEELCHAIR AND REQEUSTED A POWER CHAIR. CM ATTEMPTED TO SEE PT'S SPOUSE IN ROOM, SHE WAS NOT THERE. CM CALLED QUEEN ODESSA, . CM INFORMED THAT AN ELECTRIC WHEELCHAIR REQUIRES VERY DETAILED AND LENGHTY DOCUMENTATION THAT CANNOT BE DONE FROM HOSPITAL, REFERRED HER TO PT'S PRIMARY CARE DOCTOR. CM DISCUSSED AVAILABILITY OF REHAB SERVICES, PROVIDERS AND LOCATIONS. REPORTS SHE IS OLDER THAN PT AND IS HAVING TROUBLE CARING FOR PT IN HIS WEAKENED STATE AND WOULD LIKE REHAB AT [facility] FIRST CHOICE AND [facility] SECOND, [facility] THIRD BUT WILL NOT CONSIDER [facility] IN [place]. CHOICE LETTER COMPLETED. CHART REVIEWED, PHYSICAL THERAPY EVALUATION STILL PENDING, NO OCCUPATIONAL THERAPY HAD BEEN ORDERED. CM OBTAINED ORDER FOR OCCUPATIONAL THERAPY EVALUATION. CM TO PROVIDE REFERRAL TO [facility] FOR INPATIENT REHAB CONSIDERATION ONCE PHYSICAL AND OCCUPATIONAL THERAPY EVALUATIONS ARE COMPLETED. Ibrahima Nelson, CASE MANAGEMENT DCP- Discharge Planning Updated by [id number]: Ibrahima Nelson on 02/23/19 3:[address] Patient Name: MANA SAXENA Admission Status: ER Accout number: [id number] Admission Date: 02-22-2019 : 1940 Admission Diagnosis: Attending: CASEY NAIDU Current LOS: 1 Anticipated DC Date: 02-24-2019 Planned Disposition: Home with Home Health Primary Insurance: UNINSURED DISCOUNT PLAN PLANNED EXTERNAL PROVIDER: [facility] Discharge Planning Comments: CM RECEIVED ORDER FOR HOME HEALTH. CM MET WITH PT AND SPOUSE IN ROOM TO DISCUSS DISCHARGE PLANNING AND NEEDS. MANA SAXENA provided verbal consent to discuss current and ongoing needs with/in the presence of: SPOUSE, . ANSWERED ALL QUESTIONS. PT LIVING AT HOME DEPENDENTLY WITH SPOUSE WHO ASSISTS WITH MEDICATIONS. PT HAS BEEN GETTING WEAKER AND NOW NEEDS ASSISTANCE WITH BATHING. PT HAS WALKER WITH WHEELS, SEAT AND BRAKES AND NO MEDICAL EQUIPMENT PROVIDER PREFERENCE. PT HAS HOME HEALTH WITH [facility] FOR NURSING AND PHYSICAL THERAPY. CM DISCUSSED AVAILABILITY OF HOME HEALTH, REHAB SERVICES AND MEDICAL EQUIPMENT. PT'S SPOUSE WANTS [facility] RESUMPTION AND REPORTS NEEDING A WHEELCHAIR PT IS NO LONGER ABLE TO CLIMB THE STEPS TO GET ON THE MEDICAID BUS FOR DIALYSIS TRANSPORTATION. PT GOES TO DIALYSIS IN [place] ON MWF SCHEDULE. PT'S FAMILY TO TRANSPORT HOME AT DISCHARGE. CHOICE SIGNED FOR [facility], CHOICE FOR NO PREFERENCE FOR MEDICAL EQUIPMENT PROVIDER COMPLETED BY HODA. CM COLLECTED REGISTRATION INFORMATION AND FORWARDED TO [place] OF REGISTRATION. CM SPOKE TO BOWEN TEJADA WHO PROVIDED ORDER FOR WHEELCHAIR. CM CALLED [facility], , SPOKE TO AYUSH AND PROVIDED REFERRAL INFORMATION FOR WHEELCHAIR. CM FAXED ORDER AND CHART INFORMATION TO [facility] AT [phone]. [facility] PATIENT TO PROCESS ORDER FOR WHEELCHAIR DELIVERY TO PT IF QUALIFIES; PT'S INSURANCE REQUIRES PRIOR AUTHORIZATION. CM CALLED [facility], , SPOKE TO KURT, PROVIDED REFERRAL INFORMATION, PT IS ON SERVICES WITH [facility] ALREADY.. CM FAXED REFERRAL INFORMATION TO [facility], . FOR DISCHARGE, NOTIFY [facility] AT [phone]; FAX DISCHARGE INFORMATION TO [facility] AT [phone]. [employer] Assault Gunner: Ibrahima Nelson DCPIA - Discharge Planning Initial Assessment Updated by [id number]: Ibrahima Nelson on 02/23/19 3:52 pm * Is the patient Alert and Oriented? Yes * How many steps to enter\\exit or inside your home? RAMP * PCP DR. VIC PAREDES IN [place] * Pharmacy [facility] IN [place] * Preadmission Environment Home with Family * ADLs Partial Dependent * Partial ADLs (Assistance needed) Bathing Medication Management * Equipment Rolling Walker * Other Equipment ROLLING WALKER WITH SEAT AND BRAKES NO MEDICAL EQUIPMENT PROVIDER PREFERENCE * List name and contact numbers for known caregivers / representatives who currently or will assist patient after discharge: QUEEN ODESSA, SPOUSE, IDRIS SAXENA, NIECE, * Verbal permission to speak to the caregivers and representatives has been obtained from the patient. Yes * Community resources currently utilized Home Health * Please name any agencies selected above. [facility], NURSING AND PHYSICAL THERAPY * Additional services required to return to the preadmission environment? No * Can the patient safely return to the preadmission environment? Yes * Has this patient been hospitalized within the prior 30 days at any hospital? Yes Coverage Notice Reviewer: [id number] - Ibrahima Nelson Notice Issued Date-Time: 02/23/2019 15:15 Notice Type: Patient Choice Letter Notice Delivered To: Family Member Relationship to Patient: Spouse Fiber Optic Assembler Name: QUEEN ODESSA Delivery Method: HAND - Hand Delivered Cristina Days: Prior Verbal Notification: Recipient Understood Notice: Yes Recipient Signature: Yes Med Rec Note Co-signed by Attending: Coverage Notice Comment: ANY MEDICAL EQUIPMENT COMPANY SERVICING [place] // [facility] Reviewer: [id number] Edilia Nelson Notice Issued Date-Time: 02/26/2019 12:00 Notice Type: Patient Choice Letter Notice Delivered To: Family Member Relationship to Patient: Spouse Fiber Optic Assembler Name: QUEEN ODESSA Delivery Method: PHONE - Phone Cristina Days: Prior Verbal Notification: Recipient Understood Notice: Yes Recipient Signature: Med Rec Note Co-signed by Attending: Coverage Notice Comment: 1-[facility] 2- [facility] 3-[facility] [place]!! Reviewer: [id number] Edilia Nelson Notice Issued Date-Time: 03/11/2019 15:50 Notice Type: Patient Choice Letter Notice Delivered To: Family Member Relationship to Patient: Spouse Fiber Optic Assembler Name: QUEEN ODESSA Delivery Method: HAND - Hand Delivered Cristina Days: Prior Verbal Notification: Recipient Understood Notice: Yes Recipient Signature: Med Rec Note Co-signed by Attending: Coverage Notice Comment: [facility] OR ANY IN NETWORK ASSISTED FOR REHAB Last DP export: 03/23/19 10:31 a Patient Name: MANA SAXENA Page 60024 at 1313 All edits/amendments must be made on the electronic document DICTATION DATE: 03/24/19 1313 FOREST ECOLOGIST: GRACE 03/24/19 1313 RPT#: [id number] DC DATE: STATUS: ADM IN [facility] [address] [place] [address] END OF REPORT
--- NOTE | 2019-03-24 14:38 | NUR ---
PATIENT RETURNED FROM DIALYSIS AND SITTING UP IN BS CHAIR. PATIENT IS STABLE AND VSS. PATIENT DENIES ANY NEEDS OR PAIN. WILL CONTINUE TO MONITOR. CALL LIGHT IN REACH.
--- NOTE | 2019-03-24 15:48 | NUR ---
OT NOTE: PT COMPLETED SIDE ROLLING WITH SBA. PT COMPLETED BUE AROM AXS. PT COMPLETED HYGIENE TASKS WITH MOD A. THANK YOU, TROY SHORT
--- NOTE | 2019-03-24 16:40 | MORECARE ---
CASE MANAGEMENT DISCHARGE SUMMARY PATIENT: MANA SAXENA UNIT: [id number] ADM DATE: 02/24/19 AGE: 78 : 38 SEX: M ROOM/BED: D.2104 AUTHOR: BJ,DOC PHYSICIAN: REFERRING PHYSICIAN: CASEY NAIDU MD DATE OF SERVICE: 03/24/19 Discharge Plan Patient Name: MANA SAXENA Facility: [facility]:[place] : 1940 Planned Disposition: Nursing Facility [facility] Cert Anticipated Discharge Date: 03/22/19 Discharge Date: Expected LOS: 26 Initial Reviewer: [id number] Initial Review Date: 02/22/2019 Generated: 03/24/19 5:40 pm Comments DCP- Discharge Planning Updated by AMELIA: Ibrahima Nelson on 03/24/19 3:[address] Patient Name: MANA SAXENA Encounter No: [id number] : 1940 Primary Insurance: AETNA MEDICARE PPO or HMO Anticipated DC Date: 03-22-2019 Planned Disposition: Nursing Facility [facility] Cert External Planned Provider:[facility], MEDICARE REHAB BED DCP follow-up note: CM RECEIVED CALL FROM QUEEN ODESSA, PT'S SPOUSE, WHO HAS CALLED [facility] AND ASKED FOR EXPEDITED SERVICE ON AUTHORIZATION. CM FAXED UPDATE TO [facility] OF [facility], WITH UPDATED BLOOD CULTURE RESULT OF NEGATIVE ON DAY FIVE TO [facility] . CM RECEIVED CALL FROM [facility] WHO REQUESTED UPDATE, CM FAXED REQUEST TO [facility] AT [phone]. PT'S SPOUSE REFUSING RESIDENTIAL CARE AND INSISTING ON SKILLED NUSING REHAB. [facility] NOW WANTS NEW BLOOD CULTURE RESULT SHOWING NO INFECTION. CM WAITING INSURANCE FOR AUTHORIZATION. OF REHAB SERVICES AT [facility]. IBRAHIMA NELSONCASE MANAGEMENT Appended by Ibrahima Nelson on 03/24/2019 16:39 CDT: CM RECEIVED CALL FROM PUJA WHO INFORMED CM THAT PT'S REQUEST FOR PENITENTIARY REHAB AUTHORIZATION IS GOING FOR REVIEW BEFORE THE INSURANCE COMPLEMENTARY HEALTH THERAPISTS. PT'S SPOUSE REFUSING RESIDENTIAL CARE AND INSISTING ON SKILLED NUSING REHAB. [facility]. CM WAITING INSURANCE FOR AUTHORIZATION. OF REHAB SERVICES AT [facility]. FATOUMATA BHATT MANAGEMENT DCP- Discharge Planning Updated by [id number]: Ibrahima Nelson on 03/23/19 10:[address] Patient Name: MANA SAXENA Encounter No: [id number] : 1940 Primary Insurance: AETNA MEDICARE PPO or HMO Anticipated DC Date: 03-22-2019 Planned Disposition: Nursing Facility [facility] Cert External Planned Provider: [facility], MEDICARE REHAB BED DCP follow-up note: CM FAXED UPDATE TO [facility] OF [facility], WITH UPDATED BLOOD CULTURE RESULT OF NEGATIVE ON DAY FOUR TO [facility] VIA [facility] AT [phone]. PT'S SPOUSE REFUSING ASSEMBLER BICYCLE CARE AND INSISTING ON SKILLED NUSING REHAB. [facility] NOW WANTS NEW BLOOD CULTURE RESULT SHOWING NO INFECTION. CM WAITING INSURANCE FOR AUTHORIZATION. OF REHAB SERVICES AT [facility]. FATOUMATA BHATT DCP- Discharge Planning Updated by [id number]: Ibrahima Nelson on 03/19/19 4:[address] Patient Name: MANA SAXENA Encounter No: [id number] : 1940 Primary Insurance: AETNA MEDICARE PPO or HMO Anticipated DC Date: 03-22-2019 Planned Disposition: Nursing Facility [facility] Cert External Planned Provider: [facility], MEDICARE REHAB BED DCP follow-up note: CM FAXED UPDATE TO [facility] OF [facility], . PT'S SPOUSE REFUSING ASSEMBLER BICYCLE CARE AND INSISTING ON SKILLED NUSING REHAB. [facility] NOW WANTS NEW BLOOD CULTURE RESULT SHOWING NO INFECTION PRIOR TO SENDING TO INSURANCE FOR AUTHORIZATION. CM WAITING BLOOD CULTURE RESULT. IBRAHIMA NELSONCASE MANAGEMENT Appended by Ibrahima Nelson on 03/19/2019 17:40 CDT: CM FAXED PRELIMINARY BLOOD CULTURE RESULT OF NEGATIVE ON DAY ONE TO [facility] VIA [facility] AT [phone]. PT'S SPOUSE REFUSING RESIDENTIAL CARE AND INSISTING ON SKILLED NUSING REHAB. [facility] NOW WANTS NEW BLOOD CULTURE RESULT SHOWING NO INFECTION PRIOR TO SENDING TO INSURANCE FOR AUTHORIZATION. CM WAITING FINAL BLOOD CULTURE RESULT. FATOUMATA BHATT DCP- Discharge Planning Updated by [id number]: Ibrahima Nelson on 03/18/19 10:[address] Patient Name: MANA SAXENA Encounter No: [id number] : 1940 Primary Insurance: AETNA MEDICARE PPO or HMO Anticipated DC Date: 03-22-2019 Planned Disposition: Nursing Facility [facility] Cert External Planned Provider: [facility], MEDICARE REHAB BED DCP follow-up note: CM FAXED UPDATE TO [facility], . CM RECEIVED MESSAGE FROM PUJA WHO INFORMED THAT [facility] PLANS TO ACCEPT BUT WILL NOT SEND FOR INSURANCE AUTHORIZATION OR MAKE FINAL ADMISSION DETERMINATION UNTIL NEW BLOOD CULTURE IS DONE TO SHOW PT IS CLEAR OF INFECTION. CM NOTIFIED BOWEN TEJADA. CM MET WITH PT AND FAMILY, DISCUSSED ABOVE. PT'S SPOUSE REFUSING ASSEMBLER BICYCLE CARE AND INSISTING ON SKILLED NUSING REHAB. [facility] NOW WANTS NEW BLOOD CULTURE RESULT SHOWING NO INFECTION PRIOR TO SENDING TO INSURANCE FOR AUTHORIZATION. CM WAITING BLOOD CULTURE RESULT. IBRAHIMA NELSON,CASE MANAGEMENT DCP- Discharge Planning Updated by [id number]: Ibrahima Nelson on 03/17/19 7:[address] Patient Name: MANA SAXENA Encounter No: [id number] : 1940 Primary Insurance: AETNA MEDICARE PPO or HMO Anticipated DC Date: 03-15-2019 Planned Disposition: Nursing Facility [facility] Cert External Planned Provider: [facility], MEDICARE REHAB BED DCP follow-up note: CM FAXED UPDATE TO [facility], . PT'S SPOUSE REFUSING ASSEMBLER BICYCLE CARE AND INSISTING ON SKILLED NUSING REHAB WHICH REQUIRES PT TO PARTICIPATE IN THERAPY SERVICES. [facility] WILL HAVE ENOUGH PARTICIPATION TO SECURE INSURANCE AUTHORIZATION FOR REHAB PLACEMENT AT [facility]. IBRAHIMA NELSON,CASE MANAGEMENT DCP- Discharge Planning Updated by [id number]: Ibrahima Nelson on 03/16/19 3:[address] Patient Name: MANA SAXENA Encounter No: [id number] : 1940 Primary Insurance: AETNA MEDICARE PPO or HMO Anticipated DC Date: 03-15-2019 Planned Disposition: Nursing Facility [facility] Cert External Planned Provider: [facility], LONG TERM CARE MEDICAID BED DCP follow-up note: CM FAXED UPDATE TO [facility], . PT'S SPOUSE REFUSING ASSEMBLER BICYCLE CARE AND INSISTING ON SKILLED NUSING REHAB WHICH REQUIRES PT TO PARTICIPATE IN THERAPY SERVICES. CM TO SEND THERAPY UPDATE TOMORROW, [facility] WILL HAVE ENOUGH PARTICIPATION TO SECURE REHAB PLACEMENT AT [facility]. IBRAHIMA NELSON,CASE MANAGEMENT DCP- Discharge Planning Updated by [id number]: Ibrahima Nelson on 03/15/19 1:[address] Patient Name: MANA SAXENA Encounter No: [id number] : 1940 Primary Insurance: AETNA MEDICARE PPO or HMO Anticipated DC Date: 03-15-2019 Planned Disposition: Nursing Facility [facility] Cert External Planned Provider: [facility], LONG TERM CARE MEDICAID BED DCP follow-up note: CM RECEIVED MESSAGE FROM PU[facility], PT'S INSURANCE WILL NOT APPROVE REHAB SERVICES PT HAS BEEN REFUSING THERAPY. [facility] WITH [facility] WILL ACCEPT FOR RESIDENTIAL CARE IF PT'S FAMILY AGREES AND WILL WORK OUT FINANCIAL ARRANGEMENTS. HODA CALLED AND NOTIFIED QUEEN ODESSA AT [phone] WHO INFORMED CM THAT SHE IS NOT ABLE TO TAKE CARE OF PT AT HOME BY HERSELF AND WILL DISCUSS ASSEMBLER BICYCLE CARE ARRANGEMENTS WITH [facility]. HODA NOTIFIED PUJA OF [facility]. [facility] [employer] ENAMEL REPAIRER CALLING PT'S NOW TO DISCUSS FINANCIAL ARRANGEMENTS FOR ASSEMBLER BICYCLE CARE PLACEMENT. CM WAITING FAMILY AND LONGTERM TO WORK OUT FINANCIAL ARRANGEMENTS FOR ASSEMBLER BICYCLE CARE LONGTERM PLACEMENT. Ibrahima Nelson, CASE MANAGEMENT Appended by Ibrahima Nelson on 03/15/2019 14:55 CDT: HODA RECEIVED CALL FROM ODESSA, , WHO STATED THAT SHE DID NOT KNOW THAT PT HAD TO PARTICIPATE WITH THERAPY FOR INSURANCE TO PAY FOR HIM TO GO TO REHAB. WANG STATES THAT SHE IS COMING TO HOSPITAL THIS AFTERNOON TO SPEAK TO PT AND TELL HIM HE HAS TO PARTIPATE WITH THERAPY SO HE CAN GO TO REHAB AT [facility]. HODA EXPLAINED PT IS [facility], WANG STATES SHE DOES NOT WANT PT IN RESIDENTIAL CARE AND WILL COME AND TELL PT TO PARTICIPATE IN THERAPY AT [facility] SO HE CAN GO TO REHAB AT [facility] WITH [facility]. HODA NOTIFIED BOWEN TEJADA. CM WAITING ON PT'S SPOUSE TO SPEAK TO HIM IN THE ROOM REGARDING PARTICIPATING WITH HOSPITAL THERAPY SO INSURANCE WILL PAY FOR SKILLED REHAB; PT'S SPOUSE REFUSING ASSEMBLER BICYCLE CARE AND INSISTING ON SKILLED NUSING REHAB WHICH REQUIRES PT TO PARTICIPATE IN THERAPY SERVICES. CM TO CONTINUE TO FOLLOW AND ASSIST. IBRAHIMA NELSONCASE MANAGEMENT DCP- Discharge Planning Updated by [id number]: Ibrahima Nelson on 03/15/19 6:[address] Patient Name: MANA SAXENA Encounter No: [id number] : 1940 Primary Insurance: AETNA MEDICARE PPO or HMO Anticipated DC Date: 02-24-2019 Planned Disposition: [facility] Facility External Planned Provider:[facility], MEDICARE REHAB BED DCP follow-up note: CM NOTIFIED PUJA [facility] THAT PT MAY DISCHARGE TO REHAB TODAY. CM FAXED UPDATE WITH THERAPY NOTES TO [facility] WITH [facility] VIA PUJA AT [phone]. CM WAITING ADMISSION DETERMINATION AND INSURANCE AUTHORIZATION FOR REHAB AT [facility]. Ibrahima Nelson CASE MANAGEMENT DCP- Discharge Planning Updated by [id number]: Ibrahima Nelson on 03/12/19 3:[address] Patient Name: MANA SAXENA Encounter No: [id number] : 1940 Primary Insurance: AETNA MEDICARE PPO or HMO Anticipated DC Date: 02-24-2019 Planned Disposition: [facility] Facility External Planned Provider: [facility], MEDICARE REHAB BED DCP follow-up note: CM RECEIVED CALL FROM PUJA [facility]; REFERRAL WAS RECEIVED, PT'S INSURANCE WILL PAY OUT OF NETWORK BENEFITS JUST THE SAME IN NETWORK TO [facility] WITH [facility]. PT WILL NEED THERAPY NOTES WITH PATIENT PARTICIPATION TO GET INSURANCE AUTHORIZATION FOR REHAB. PT NEEDS THERAPY NOTES DOCUMENTING PATIENT PARTICIPATION FOR INSURANCE TO AUTHORIZE . CM WAITING ADMISSION DETERMINATION AND INSURANCE AUTHORIZATION FOR REHAB AT [facility]. Ibrahima Nelson CASE MANAGEMENT DCP- Discharge Planning Updated by [id number]: Ibrahima Nelson on 03/11/19 1:[address] Patient Name: MANA SAXENA Encounter No: [id number] : 1940 Primary Insurance: AETNA MEDICARE PPO or HMO Anticipated DC Date: 02-24-2019 Planned Disposition: [facility] Facility External Planned Provider: [facility], MEDICARE REHAB BED DCP follow-up note: CM RECEIVED CALL FROM [facility], THEY ARE OUT OF INSURANCE NETWORK AND CANNOT ACCEPT PT. CM SPOKE TO PT AND SPOUSE IN ROOM. REPORTS IT IS OK TO SEND REFERRAL TO [facility] AND IF THEY DON'T ACCEPT, ANY IN NETWORK FACILITY WILL HAVE TO DO, JUST NOT [place]. CHOICE LETTER COMPLETED. QUEEN ODESSA PROVIDED INSURANCE CUSTOMER SERVICES NUMBER OF AND WEBSITE ADDRESS "[email or web address]" FOR CM USE IF NEEDED. CM NOTIFIED PUJA OF [facility] OF REHAB REFERRAL, . CM FAXED REFERRAL TO [facility] VIA [facility] AT [phone]. CM WAITING ADMISSION DETERMINATION AND INSURANCE AUTHORIZATION FOR REHAB AT [facility]. FATOUMATA Bhatt DCP- Discharge Planning Updated by [id number]: Ibrahima Nelson on 03/10/19 2:[address] Patient Name: MANA SAXENA Encounter No: [id number] : 1940 Primary Insurance: AETNA MEDICARE PPO or HMO Anticipated DC Date: 02-24-2019 Planned Disposition: [facility] Facility External Planned Provider[facility], MEDICARE REHAB BED DCP follow-up note: CM FAXED UDPATE WITH OT EVALUATION TO UBALDO AT [employer] AT [phone]. [facility] IS TRYING TO GET APPROVAL FOR OUT OF NETWORK SKILLED REHAB BENEFITS. CM WAITING ADMISSION DETERMINATION FROM [facility] FOR REHAB. PT WILL NEED TO HAVE INSURANCE AUTHORIZATION FOR REHAB SERVICES. IBRAHIMA NELSON, CASE MANAGEMENT Appended by Ibrahima Nelson on 03/10/2019 15:03 CDT: CM RECEIVED CALL FROM UBALDO OF [employer], , WHO INFORMED CM THAT THEY ARE STILL TRYING TO CONNECT WITH PT'S INSURANCE COMPANY TO REQUEST AUTHORIZATION OF SERVICES. CM PROVIDED PT'S SOCIAL SECURITY NUMBER AND FAXED UDPATE TO [facility] AT [employer] AT [phone]. [facility] IS TRYING TO GET APPROVAL FOR OUT OF NETWORK SKILLED REHAB BENEFITS. CM WAITING ADMISSION DETERMINATION FROM [facility] FOR REHAB. PT WILL NEED TO HAVE INSURANCE AUTHORIZATION FOR REHAB SERVICES. FATOUMATA BHATT DCP- Discharge Planning Updated by [id number]: Ibrahima Nelson on 03/09/19 10:[address] Patient Name: MANA SAXENA Encounter No: [id number] : 1940 Primary Insurance: AETNA MEDICARE PPO or HMO Anticipated DC Date: 02-24-2019 Planned Disposition: [facility]fp Facility External Planned Provider:[facility], MEDICARE REHAB BED DCP follow-up note: CM REVIEWED CHART, OBTAINED ORDER FOR OCCUPATIONAL THERAPY EVALUATION. CM FAXED UPDATED REFERRAL TO [facility], . CM RECEIVED CALL FROM [facility], , [facility] IS NOT IN NETWORK WITH PT'S INSURANCE AND THEY HAVE SUBMITTED TO INSURANCE TO SEE IF INSURANCE WILL COVER REHAB AT [facility]. CM WAITING ADMISSION DETERMINATION FROM [facility]. PT WILL NEED TO HAVE INSURANCE AUTHORIZATION FOR REHAB SERVICES. IBRAHIMA NELSON, CASE MANAGEMENT DCP- Discharge Planning Updated by [id number]: Ibrahima Nelson on 03/03/19 9:[address] Patient Name: MANA SAXENA Encounter No: [id number] : 1940 Primary Insurance: AETNA MEDICARE PPO or HMO Anticipated DC Date: 02-24-2019 Planned Disposition: [facility]fp Facility External Planned Provider: [facility], MEDICARE REHAB BED DCP follow-up note: CM RECEIVED CALL FROM [facility], UPDATE PROVIDED VIA PHONE; DOUGLAS CANCELLED REFERRAL AND INSTRUCTED CM TO SEND REFERRAL WHEN PT IS BETTER AND IF PT STILL NEEDS INPATIENT REHAB SERVICES. CM WAITING ADMISSION DETERMINATION FROM [facility] FOR REHAB OR RESIDENTIAL CARE. PT WILL NEED TO HAVE INSURANCE AUTHORIZATION WHEN OCCUPATIONAL THERAPY EVALUATION HAS BEEN COMPLETED AND RECEIVED BY PENITENTIARY FACILITY. IBRAHIMA NELSON CASE MANAGEMENT DCP- Discharge Planning Updated by [id number]: Ibrahima Nelson on 03/02/19 10:[address] Patient Name: MANA SAXENA Encounter No: [id number] : 1940 Primary Insurance: AETNA MEDICARE PPO or HMO Anticipated DC Date: 02-24-2019 Planned Disposition: Inpatient Rehab External Planned Provider: [facility] DCP follow-up note: CM RECEIVED CALL FROM [facility], THEY HAVE ACCEPTED MEDICALLY AND WILL SUBMIT TO INSURANCE FOR AUTHORIZATION FOR INPATIENT REHAB SERVICES. CM ADVISED THAT PT HAD MOVED TO ICU THIS MORNING AND THAT PT HAS BEEN REFUSING THERAPY SERVICES AND FURTHER THAT OCCUPATIONAL THERAPY EVALUATION HAS NOT YET BEEN COMPLETED. IAN WILL FOLLOW UP WITH CALL TO PT'S TO DISCUSS COMPLIANCE WITH THERAPY SERVICES TO SEE IF THE SPOUSE CAN SPEAK TO PT. CM WAITING RETURN CALL FROM PT'S SPOUSE, QUEEN ODESSA. [facility] WILL SUBMIT TO PT'S INSURANCE COMPANY FOR INPATIENT REHAB AUTHORIZATION WHEN OCCUPATIONAL THERAPY EVALUATION HAS BEEN COMPLETED AND RECEIVED. CM WAITING ADMISSION DETERMINATION FROM [facility] OR REHAB OR ASSEMBLER BICYCLE CARE. PT WILL NEED TO HAVE INSURANCE AUTHORIZATION WHEN OCCUPATIONAL THERAPY EVALUATION HAS BEEN COMPLETED AND RECEIVED BY PENITENTIARY FACILITY. IBRAHIMA NELSNO CASE MANAGEMENT DCP- Discharge Planning Updated by [id number]: Ibrahima Nelson on 03/01/19 3:[address] Patient Name: MANA SAXENA Encounter No: [id number] : 1940 Primary Insurance: AETNA MEDICARE PPO or HMO Anticipated DC Date: 02-24-2019 Planned Disposition: Inpatient Rehab External Planned Provider: [facility] INPAT[facility] DCP follow-up note: HODA REVIEWED CHART, OCCUPATIONAL THERAPY EVALUATION HAS STILL NOT BEEN COMPLETED / DOCUMENTED. CM FAXED BASIC REFERRAL TO [facility] FOR INPATIENT REHAB CONSIDERATION AT [phone]. CM TO FAX UPDATE WITH OCCUPATIONAL THERAPY EVALUATION WHEN IT IS COMPLETED AND DOCUMENTED. Ibrahima Nelson, CASE MANAGEMENT Appended by Ibrahima Nelson on 03/01/2019 16:14 CDT: HODA REVIEWED CHART, PT REFUSED PHYSICAL THERAPY TODAY AND THERAPY HAS SIGNED OFF DUE TO PT REFUSAL. OCCUPATIONAL THERAPY EVALUATION STILL NOT COMPLETED. IT IS CM'S EXPERIENCE THAT INSURANCE WILL NOT PAY FOR REHAB SERVICES UNLESS PT IS PARTICIPATING, WHICH THIS PT IS NOT. CM SPOKE TO PT IN ROOM WHO REPORTS HE DID NOT UNDERSTAND; PT STATES HE IS GOING HOME. WHEN CM EXPLAINED IN SLOW DETAIL THAT PT'S SPOUSE WANTS HIM TO GO TO REHAB, PT YELLS AT THAT SOMETHING MUST BE WRONG AND TO CALL . CM CALLED QUEEN ODESSA, SPOUSE, , LEFT MESSAGE ASKING FOR RETURN CALL. CM FAXED REFERRAL TO [facility] IN [place] THAT THEY CAN GET AUTHORIZATION FOR REHAB WITH PT'S REFUSAL TO DO THERAPY OR AT LEAST CONSIDER FOR RESIDENTIAL CARE. CM WAITING RETURN CALL FROM PT'S SPOUSE, QUEEN ODESSA. CM WAITING ADMISSION DETERMINATION FROM [facility] AND REHAB OR REHAB OR ASSEMBLER BICYCLE CARE. IBRAHIMA NELSON CASE MANAGEMENT DCP- Discharge Planning Updated by [id number]: Ibrahima Nelson on 02/26/19 12:[address] Patient Name: MANA SAXENA Encounter No: [id number] : 1940 Primary Insurance: AETNA MEDICARE PPO or HMO Anticipated DC Date: 02-24-2019 Planned Disposition: Inpatient Rehab External Planned Provider: [facility] DCP follow-up note: CM RECEIVED CALL FROM AYUSH OF [facility] HOME PATIENT; SHE HAD CALLED PT'S SPOUSE TO ARRANGE DELIVERY OF MANUAL WHEELCHAIR AND SPOUSE REFUSED IT STATING THAT SHE CANNOT PHYSICALLY PUSH PT IN A WHEELCHAIR AND REQEUSTED A POWER CHAIR. CM ATTEMPTED TO SEE PT'S SPOUSE IN ROOM, SHE WAS NOT THERE. CM CALLED QUEEN ODESSA, . CM INFORMED THAT AN ELECTRIC WHEELCHAIR REQUIRES VERY DETAILED AND LENGHTY DOCUMENTATION THAT CANNOT BE DONE FROM HOSPITAL, REFERRED HER TO PT'S PRIMARY CARE DOCTOR. CM DISCUSSED AVAILABILITY OF REHAB SERVICES, PROVIDERS AND LOCATIONS. REPORTS SHE IS OLDER THAN PT AND IS HAVING TROUBLE CARING FOR PT IN HIS WEAKENED STATE AND WOULD LIKE REHAB AT [facility] FIRST CHOICE AND [facility] SECOND, [facility] THIRD BUT WILL NOT CONSIDER [place] IN [place]. CHOICE LETTER COMPLETED. CHART REVIEWED, PHYSICAL THERAPY EVALUATION STILL PENDING, NO OCCUPATIONAL THERAPY HAD BEEN ORDERED. CM OBTAINED ORDER FOR OCCUPATIONAL THERAPY EVALUATION. CM TO PROVIDE REFERRAL TO [facility] FOR INPATIENT REHAB CONSIDERATION ONCE PHYSICAL AND OCCUPATIONAL THERAPY EVALUATIONS ARE COMPLETED. FATOUMATA Bhatt DCP- Discharge Planning Updated by [id number]: Ibrahima Nelson on 02/23/19 3:[address] Patient Name: MANA SAXENA Admission Status: ER Accout number: [id number] Admission Date: 02-22-2019 : 1940 Admission Diagnosis: Attending: CASEY NAIDU Current LOS: 1 Anticipated DC Date: 02-24-2019 Planned Disposition: Home with Home Health Primary Insurance: UNINSURED DISCOUNT PLAN PLANNED EXTERNAL PROVIDER: [facility] Discharge Planning Comments: CM RECEIVED ORDER FOR HOME HEALTH. CM MET WITH PT AND SPOUSE IN ROOM TO DISCUSS DISCHARGE PLANNING AND NEEDS. MANA SAXENA provided verbal consent to discuss current and ongoing needs with/in the presence of: SPOUSE, . ANSWERED ALL QUESTIONS. PT LIVING AT HOME DEPENDENTLY WITH SPOUSE WHO ASSISTS WITH MEDICATIONS. PT HAS BEEN GETTING WEAKER AND NOW NEEDS ASSISTANCE WITH BATHING. PT HAS WALKER WITH WHEELS, SEAT AND BRAKES AND NO MEDICAL EQUIPMENT PROVIDER PREFERENCE. PT HAS HOME HEALTH WITH [facility] FOR NURSING AND PHYSICAL THERAPY. CM DISCUSSED AVAILABILITY OF HOME HEALTH, REHAB SERVICES AND MEDICAL EQUIPMENT. PT'S SPOUSE WANTS [facility] RESUMPTION AND REPORTS NEEDING A WHEELCHAIR PT IS NO LONGER ABLE TO CLIMB THE STEPS TO GET ON THE MEDICAID BUS FOR DIALYSIS TRANSPORTATION. PT GOES TO DIALYSIS IN [place] ON MWF SCHEDULE. PT'S FAMILY TO TRANSPORT HOME AT DISCHARGE. CHOICE SIGNED FOR [facility], CHOICE FOR NO PREFERENCE FOR MEDICAL EQUIPMENT PROVIDER COMPLETED BY CM. CM COLLECTED REGISTRATION INFORMATION AND FORWARDED TO [place] OF REGISTRATION. CM SPOKE TO BOWEN TEJADA WHO PROVIDED ORDER FOR WHEELCHAIR. CM CALLED [facility] PATIENT, , SPOKE TO AYUSH AND PROVIDED REFERRAL INFORMATION FOR WHEELCHAIR. CM FAXED ORDER AND CHART INFORMATION TO [facility] AT [phone]. [facility] PATIENT TO PROCESS ORDER FOR WHEELCHAIR DELIVERY TO PT IF QUALIFIES; PT'S INSURANCE REQUIRES PRIOR AUTHORIZATION. CM CALLED [facility], , SPOKE TO KURT, PROVIDED REFERRAL INFORMATION, PT IS ON SERVICES WITH [facility] ALREADY.. CM FAXED REFERRAL INFORMATION TO [facility], . FOR DISCHARGE, NOTIFY [facility] AT [phone]; FAX DISCHARGE INFORMATION TO [facility] AT [phone]. Carbonation Equipment Tender: Ibrahima Nelson DCPIA - Discharge Planning Initial Assessment Updated by [id number]: Ibrahima Nelson on 02/23/19 3:52 pm * Is the patient Alert and Oriented? Yes * How many steps to enter\\exit or inside your home? RAMP * PCP DR. VIC PAREDES IN [place] * Pharmacy [facility] [place] * Preadmission Environment Home with Family * ADLs Partial Dependent * Partial ADLs (Assistance needed) Bathing Medication Management * Equipment Rolling Walker * Other Equipment ROLLING WALKER WITH SEAT AND BRAKES NO MEDICAL EQUIPMENT PROVIDER PREFERENCE * List name and contact numbers for known caregivers / representatives who currently or will assist patient after discharge: QUEEN ODESSA, SPOUSE, IDRIS SAXENA, NIECE, * Verbal permission to speak to the caregivers and representatives has been obtained from the patient. Yes * Community resources currently utilized Home Health * Please name any agencies selected above. [facility], NURSING AND PHYSICAL THERAPY * Additional services required to return to the preadmission environment? No * Can the patient safely return to the preadmission environment? Yes * Has this patient been hospitalized within the prior 30 days at any hospital? Yes Coverage Notice Reviewer: [id number] Nelson Notice Issued Date-Time: 02/23/2019 15:15 Notice Type: Patient Choice Letter Notice Delivered To: Family Member Relationship to Patient: Spouse Rental Counter Clerk Name: QUEEN ODESSA Delivery Method: HAND - Hand Delivered Cristina Days: Prior Verbal Notification: Recipient Understood Notice: Yes Recipient Signature: Yes Med Rec Note Co-signed by Attending: Coverage Notice Comment: ANY MEDICAL EQUIPMENT COMPANY SERVICING [place] // [facility] Reviewer: [id number] Nelson Notice Issued Date-Time: 02/26/2019 12:00 Notice Type: Patient Choice Letter Notice Delivered To: Family Member Relationship to Patient: Spouse Rental Counter Clerk Name: QUEEN ODESSA Delivery Method: PHONE - Phone Cristina Days: Prior Verbal Notification: Recipient Understood Notice: Yes Recipient Signature: Med Rec Note Co-signed by Attending: Coverage Notice Comment: [facility] 2- [facility] 3-[facility] NOT [place]!! Reviewer: [id number] Nelson Notice Issued Date-Time: 03/11/2019 15:50 Notice Type: Patient Choice Letter Notice Delivered To: Family Member Relationship to Patient: Spouse Rental Counter Clerk Name: QUEEN ODESSA Delivery Method: HAND - Hand Delivered Cristina Days: Prior Verbal Notification: Recipient Understood Notice: Yes Recipient Signature: Med Rec Note Co-signed by Attending: Coverage Notice Comment: [facility] OR ANY IN NETWORK PENITENTIARY FOR REHAB Last DP export: 03/24/19 12:13 p Patient Name: MANA SAXENA Page [id number] at 1640 All edits/amendments must be made on the electronic document DICTATION DATE: 03/24/191638 ADMITTED ATTORNEYS: GRACE 03/24/191638 RPT#: [id number] DC DATE: STATUS: ADM IN [facility] [address] [place] [address] END OF REPORT
--- NOTE | 2019-03-24 19:36 | NUR ---
PATIENT LAYING IN BED, EYES CLOSED, CHEST RISING AND FALLING. EASILY AROUSED. NO COMPLAINTS AT THIS TIME. NO DISTRESS NOTED.
--- NOTE | 2019-03-25 02:37 | NUR ---
I have reviewed this patient and I concur with the Shift Assessment completed by the Licensed Practical Nurse today this shift.
--- NOTE | 2019-03-25 03:04 | NUR ---
PATIENT LAYING IN BED, EYES CLOSED, CHEST RISING AND FALLING. NO DISTRESS NOTED.
[2019-03-25 04:16] LABS: BASOPHILS 0.4 % (0-2); EOSINOPHILS 0.4 % (0-7); HEMATOCRIT 27.6 % (42.0-54.0); HEMOGLOBIN 8.9 g/dL (13.5-17.5); IMMATURE GRANULOCYTES 0.2 % (0-5); MCH 30.5 pg (26.0-34.0); MCHC 32.2 g/dL (31.0-37.0); MCV 94.5 fL (80.0-100.0); MEAN PLATELET VOLUME 10.9 fL (7.4-10.4); MONOCYTES 19.4 % (2-11); NEUTROPHILS 63.6 % (40-80); PLATELET COUNT 137 10x3/uL (130-400); RBC 2.92 10x6/uL (4.20-6.10); RDW 22.4 % (11.5-14.5); WBC 5.1 10x3/uL (4.8-10.8)
[2019-03-25 04:30] VITALS: BP 116/64
[2019-03-25 04:39] LABS: ANION GAP 13.6 mmol/L (8-16); CALCIUM 8.5 mg/dL (8.5-10.1); CARBON DIOXIDE 26.5 mmol/L (21.0-32.0); CREATININE - SERUM 4.7 mg/dL (0.6-1.3); PHOSPHOROUS 1.9 mg/dL (2.5-4.9); POTASSIUM - SERUM 4.1 mmol/L (3.5-5.1)
--- NOTE | 2019-03-25 06:30 | NUR ---
PATIENT ASSIST TO AND FROM BEDSIDE COMMODE BY JESSICA HDEZ AND THIS NURSE. NO COMPLAINTS AT THIS TIME. NO DISTRESS NOTED.
[2019-03-25 07:35] VITALS: BP 122/63
--- NOTE | 2019-03-25 09:15 | MORECARE ---
CASE MANAGEMENT DISCHARGE SUMMARY PATIENT: MANA SAXENA UNIT: [id number] ADM DATE: 02/24/19 AGE: 78 : 38 SEX: M ROOM/BED: D.2105 AUTHOR: BJ,DOC PHYSICIAN: REFERRING PHYSICIAN: CASEY NAIDU MD DATE OF SERVICE: 03/25/19 Discharge Plan Patient Name: MANA SAXENA Facility: [facility]:[place] : 1940 Planned Disposition: Nursing Facility [facility] Cert Anticipated Discharge Date: 03/22/19 Discharge Date: Expected LOS: 26 Initial Reviewer: [id number] Initial Review Date: 02/22/2019 Generated: 03/25/19 10:15 am Comments DCP- Discharge Planning Updated by [id number]: Ibrahima Nelson on 03/25/19 8:[address] Patient Name: MANA SAXENA Encounter No: [id number] : 1940 Primary Insurance: AETNA MEDICARE PPO or HMO Anticipated DC Date: 03-22-2019 Planned Disposition: Nursing Facility [facility] Cert External Planned Provider: [facility], MEDICARE REHAB BED DCP follow-up note: CM FAXED UPDATE TO [facility] OF [facility], . CM SPOKE TO PT IN ROOM, PT STILL WANTING REHAB AT [facility]. PT ASKED WHAT IS GOING ON WITH HIS INSURANCE. CM EXPLAINED THAT THE INSURANCE ASSISTANT BRAND MANAGER WAS REVIEWING IT AND THE INSURANCE HAD ASKED WHAT PT'S PRIOR LEVEL OF FUNCTIONING WAS PRIOR TO HOSPITAL STAY. PT STATES HE JUST NEEDS REHAB, IS NOT GOING FOR ICE HANDLER CARE AND WISHES THAT INSURANCE WOULD HURRY UP. CM EXPLAINED THAT ALL IS BEING DONE FROM THE HOSPITAL THAT CAN BE DONE. PT ASKED CM TO CALL HIS AND TELL HER TO BRING FINGERNAIL CLIPPERS. CM DID PT REQUESTED. IMPORTANT MESSAGE FROM MEDICARE PROVIDED AND EXPLAINED. PT'S SPOUSE REFUSING ICE HANDLER CARE AND INSISTING ON SKILLED NUSING REHAB. [facility]. CM WAITING INSURANCE FOR AUTHORIZATION OF REHAB SERVICES AT [facility], LAST WORD FROM INSURANCE YESTERDAY WAS THE INSURANCE ASSISTANT BRAND MANAGER WAS REVIEWING. IBRAHIMA NELSON,CASE MANAGEMENT Ibrahima Nelson DCP- Discharge Planning Updated by [id number]: Ibrahima Nelson on 03/24/19 3:[address] Patient Name: MANA SAXENA Encounter No: [id number] : 1940 Primary Insurance: AETNA MEDICARE PPO or HMO Anticipated DC Date: 03-22-2019 Planned Disposition: Nursing Facility [facility] Cert External Planned Provider:[facility], MEDICARE REHAB BED DCP follow-up note: CM RECEIVED CALL FROM QUEEN ODESSA, PT'S SPOUSE, WHO HAS CALLED INSURANCE AND ASKED FOR EXPEDITED SERVICE ON AUTHORIZATION. CM FAXED UPDATE TO [facility], WITH UPDATED BLOOD CULTURE RESULT OF NEGATIVE ON DAY FIVE TO [facility] . CM RECEIVED CALL FROM [facility] WHO REQUESTED UPDATE, CM FAXED REQUEST TO ANTHONY AT [phone]. PT'S SPOUSE REFUSING SNF CARE AND INSISTING ON SKILLED NUSING REHAB. [facility] NOW WANTS NEW BLOOD CULTURE RESULT SHOWING NO INFECTION. CM WAITING INSURANCE FOR AUTHORIZATION. OF REHAB SERVICES AT [facility]. IBRAHIMA NELSON,CASE MANAGEMENT Appended by Ibrahima Nelson on 03/24/2019 16:39 CDT: CM RECEIVED CALL FROM [facility] WHO INFORMED CM THAT PT'S REQUEST FOR [facility] AUTHORIZATION IS GOING FOR REVIEW BEFORE THE INSURANCE ASSISTANT BRAND MANAGER. PT'S SPOUSE REFUSING ICE HANDLER CARE AND INSISTING ON SKILLED NUSING REHAB. [facility]. CM WAITING INSURANCE FOR AUTHORIZATION. OF REHAB SERVICES AT [facility]. IBRAHIMA NELSON,CASE MANAGEMENT DCP- Discharge Planning Updated by [id number]: Ibrahima Nelson on 03/23/19 10:[address] Patient Name: MANA SAXENA Encounter No: [id number] : 1940 Primary Insurance: AETNA MEDICARE PPO or HMO Anticipated DC Date: 03-22-2019 Planned Disposition: Nursing Facility [facility] Cert External Planned Provider: [facility], MEDICARE REHAB BED DCP follow-up note: CM FAXED UPDATE TO [facility], WITH UPDATED BLOOD CULTURE RESULT OF NEGATIVE ON DAY FOUR TO [facility] VIA [facility] AT [phone]. PT'S SPOUSE REFUSING ICE HANDLER CARE AND INSISTING ON SKILLED NUSING REHAB. [facility] NOW WANTS NEW BLOOD CULTURE RESULT SHOWING NO INFECTION. CM WAITING INSURANCE FOR AUTHORIZATION. OF REHAB SERVICES AT [facility]. FATOUMATA BHATT DCP- Discharge Planning Updated by [id number]: Ibrahima Nelson on 03/19/19 4:[address] Patient Name: MANA SAXENA Encounter No: [id number] : 1940 Primary Insurance: AETNA MEDICARE PPO or HMO Anticipated DC Date: 03-22-2019 Planned Disposition: Nursing Facility [facility] Cert External Planned Provider: [facility], MEDICARE REHAB BED DCP follow-up note: CM FAXED UPDATE TO [facility], . PT'S SPOUSE REFUSING ICE HANDLER CARE AND INSISTING ON SKILLED NUSING REHAB. [facility] NOW WANTS NEW BLOOD CULTURE RESULT SHOWING NO INFECTION PRIOR TO SENDING TO INSURANCE FOR AUTHORIZATION. CM WAITING BLOOD CULTURE RESULT. IBRAHIMA NELSON,CASE MANAGEMENT Appended by Ibrahima Nelson on 03/19/2019 17:40 CDT: CM FAXED PRELIMINARY BLOOD CULTURE RESULT OF NEGATIVE ON DAY ONE TO [facility] VIA [facility] AT [phone]. PT'S SPOUSE REFUSING ICE HANDLER CARE AND INSISTING ON SKILLED NUSING REHAB. [facility] NOW WANTS NEW BLOOD CULTURE RESULT SHOWING NO INFECTION PRIOR TO SENDING TO INSURANCE FOR AUTHORIZATION. CM WAITING FINAL BLOOD CULTURE RESULT. FATOUMATA BHATT DCP- Discharge Planning Updated by [id number]: Ibrahima Nelson on 03/18/19 10:[address] Patient Name: MANA SAXENA Encounter No: [id number] : 1940 Primary Insurance: AETNA MEDICARE PPO or HMO Anticipated DC Date: 03-22-2019 Planned Disposition: Nursing Facility [facility] Cert External Planned Provider: [facility], MEDICARE REHAB BED DCP follow-up note: CM FAXED UPDATE TO [facility], . CM RECEIVED MESSAGE FROM PUJA WHO INFORMED THAT [facility] PLANS TO ACCEPT BUT WILL NOT SEND FOR INSURANCE AUTHORIZATION OR MAKE FINAL ADMISSION DETERMINATION UNTIL NEW BLOOD CULTURE IS DONE TO SHOW PT IS CLEAR OF INFECTION. CM NOTIFIED BOWEN TEJADA. CM MET WITH PT AND FAMILY, DISCUSSED ABOVE. PT'S SPOUSE REFUSING ICE HANDLER CARE AND INSISTING ON SKILLED NUSING REHAB. [facility] NOW WANTS NEW BLOOD CULTURE RESULT SHOWING NO INFECTION PRIOR TO SENDING TO INSURANCE FOR AUTHORIZATION. CM WAITING BLOOD CULTURE RESULT. IBRAHIMA NELSONCASE MANAGEMENT DCP- Discharge Planning Updated by [id number]: Ibrahima Nelson on 03/17/19 7:[address] Patient Name: MANA SAXENA Encounter No: [id number] : 1940 Primary Insurance: AETNA MEDICARE PPO or HMO Anticipated DC Date: 03-15-2019 Planned Disposition: Nursing Facility [facility] Cert External Planned Provider: [facility], MEDICARE REHAB BED DCP follow-up note: CM FAXED UPDATE TO [facility], . PT'S SPOUSE REFUSING SNF CARE AND INSISTING ON SKILLED NUSING REHAB WHICH REQUIRES PT TO PARTICIPATE IN THERAPY SERVICES. H[facility]EF[facility] WILL HAVE ENOUGH PARTICIPATION TO SECURE INSURANCE AUTHORIZATION FOR REHAB PLACEMENT AT [facility]. IBRAHIMA NELSONCASE MANAGEMENT DCP- Discharge Planning Updated by [id number]: Ibrahima Nelson on 03/16/19 3:[address] Patient Name: MANA SAXENA Encounter No: [id number] : 1940 Primary Insurance: AETNA MEDICARE PPO or HMO Anticipated DC Date: 03-15-2019 Planned Disposition: Nursing Facility [facility] Cert External Planned Provider: [facility], LONG TERM CARE MEDICAID BED DCP follow-up note: CM FAXED UPDATE TO [facility], . PT'S SPOUSE REFUSING ICE HANDLER CARE AND INSISTING ON SKILLED NUSING REHAB WHICH REQUIRES PT TO PARTICIPATE IN THERAPY SERVICES. CM TO SEND THERAPY UPDATE TOMORROW, HOPEF[facility] WILL HAVE ENOUGH PARTICIPATION TO SECURE REHAB PLACEMENT AT [facility]. IBRAHIMA NELSONCASE MANAGEMENT DCP- Discharge Planning Updated by [id number]: Ibrahima Nelson on 03/15/19 1:[address] Patient Name: MANA SAXENA Encounter No: [id number] : 1940 Primary Insurance: AETNA MEDICARE PPO or HMO Anticipated DC Date: 03-15-2019 Planned Disposition: Nursing Facility [facility] Cert External Planned Provider: [facility], LONG TERM CARE MEDICAID BED DCP follow-up note: CM RECEIVED MESSAGE FROM [facility], PT'S INSURANCE WILL NOT APPROVE REHAB SERVICES PT HAS BEEN REFUSING THERAPY. [facility] WILL ACCEPT FOR SNF CARE IF PT'S FAMILY AGREES AND WILL WORK OUT FINANCIAL ARRANGEMENTS. CM CALLED AND NOTIFIED QUEEN ODESSA AT [phone] WHO INFORMED CM THAT SHE IS NOT ABLE TO TAKE CARE OF PT AT HOME BY HERSELF AND WILL DISCUSS ICE HANDLER CARE ARRANGEMENTS WITH [facility]. CM NOTIFIED [facility] OF [facility]. [facility] CRYPTOANALYSIS TEACHER CALLING PT'S NOW TO DISCUSS FINANCIAL ARRANGEMENTS FOR SNF CARE PLACEMENT. CM WAITING FAMILY AND SNF TO WORK OUT FINANCIAL ARRANGEMENTS FOR SNF CARE SNF PLACEMENT. Ibrahima Nelson, CASE MANAGEMENT Appended by Ibrahima Nelson on 03/15/2019 14:55 CDT: HODA RECEIVED CALL FROM QUEEN ODESSA, , WHO STATED THAT SHE DID NOT KNOW THAT PT HAD TO PARTICIPATE WITH THERAPY FOR INSURANCE TO PAY FOR HIM TO GO TO REHAB. STATES THAT SHE IS COMING TO HOSPITAL THIS AFTERNOON TO SPEAK TO PT AND TELL HIM HE HAS TO PARTIPATE WITH THERAPY SO HE CAN GO TO REHAB AT [facility]. HODA EXPLAINED PT IS READY TO DISCHARGE FROM THE [facility] STATES SHE DOES NOT WANT PT IN ICE HANDLER CARE AND WILL COME AND TELL PT TO PARTICIPATE IN THERAPY AT [facility] SO HE CAN GO TO REHAB AT [facility]. HODA NOTIFIED BOWEN TEJADA. CM WAITING ON PT'S SPOUSE TO SPEAK TO HIM IN THE ROOM REGARDING PARTICIPATING WITH HOSPITAL THERAPY SO INSURANCE WILL PAY FOR SKILLED REHAB; PT'S SPOUSE REFUSING ICE HANDLER CARE AND INSISTING ON SKILLED NUSING REHAB WHICH REQUIRES PT TO PARTICIPATE IN THERAPY SERVICES. CM TO CONTINUE TO FOLLOW AND ASSIST. IBRAHIMA NELSONCASE MANAGEMENT DCP- Discharge Planning Updated by [id number]: Ibrahima Nelson on 03/15/19 6:[address] Patient Name: MANA SAXENA Encounter No: [id number] : 1940 Primary Insurance: AETNA MEDICARE PPO or HMO Anticipated DC Date: 02-24-2019 Planned Disposition: Detention Facility External Planned Provider:[facility], MEDICARE REHAB BED DCP follow-up note: CM NOTIFIED [facility] OF [facility] THAT PT MAY DISCHARGE TO REHAB TODAY. CM FAXED UPDATE WITH THERAPY NOTES TO [facility] VIA PUJA AT [phone]. CM WAITING ADMISSION DETERMINATION AND INSURANCE AUTHORIZATION FOR REHAB AT [facility] IN [place]. FATOUMATA Bhatt DCP- Discharge Planning Updated by [id number]: Ibrahima Nelson on 03/12/19 3:[address] Patient Name: MANA SAXENA Encounter No: [id number] : 1940 Primary Insurance: AETNA MEDICARE PPO or HMO Anticipated DC Date: 02-24-2019 Planned Disposition: Detention Facility External Planned Provider: [facility], MEDICARE REHAB BED DCP follow-up note: CM RECEIVED CALL FROM [facility]; REFERRAL WAS RECEIVED, PT'S INSURANCE WILL PAY OUT OF NETWORK BENEFITS JUST THE SAME IN NETWORK TO [facility]. PT WILL NEED THERAPY NOTES WITH PATIENT PARTICIPATION TO GET INSURANCE AUTHORIZATION FOR REHAB. PT NEEDS THERAPY NOTES DOCUMENTING PATIENT PARTICIPATION FOR INSURANCE TO AUTHORIZE . CM WAITING ADMISSION DETERMINATION AND INSURANCE AUTHORIZATION FOR REHAB AT [facility]. Ibrahima Nelson, CASE MANAGEMENT DCP- Discharge Planning Updated by [id number]: Ibrahima Nelson on 03/11/19 1:[address] Patient Name: MANA SAXENA Encounter No: [id number] : 1940 Primary Insurance: AETNA MEDICARE PPO or HMO Anticipated DC Date: 02-24-2019 Planned Disposition: Detention Facility External Planned Provider: [facility], MEDICARE REHAB BED DCP follow-up note: CM RECEIVED CALL FROM [facility], THEY ARE OUT OF INSURANCE NETWORK AND CANNOT ACCEPT PT. CM SPOKE TO PT AND SPOUSE IN ROOM. REPORTS IT IS OK TO SEND REFERRAL TO [facility] AND IF THEY DON'T ACCEPT, ANY IN NETWORK FACILITY WILL HAVE TO DO, JUST NOT [facility]. CHOICE LETTER COMPLETED. QUEEN ODESSA PROVIDED INSURANCE CUSTOMER SERVICES NUMBER OF AND WEBSITE ADDRESS "[email or web address]" FOR CM USE IF NEEDED. CM NOTIFIED [facility] OF REHAB REFERRAL, . CM FAXED REFERRAL TO [facility] VIA [employer] AT [phone]. CM WAITING ADMISSION DETERMINATION AND INSURANCE AUTHORIZATION FOR REHAB AT [facility]. Ibrahima Nelson, CASE MANAGEMENT DCP- Discharge Planning Updated by [id number]: Ibrahima Nelson on 03/10/19 2:[address] Patient Name: MANA SAXENA Encounter No: [id number] : 1940 Primary Insurance: AETNA MEDICARE PPO or HMO Anticipated DC Date: 02-24-2019 Planned Disposition: Detention Facility External Planned Provider:[facility], MEDICARE REHAB BED DCP follow-up note: CM FAXED UDPATE WITH OT EVALUATION TO UBALDO AT [facility] AT [phone]. [facility] IS TRYING TO GET APPROVAL FOR OUT OF NETWORK SKILLED REHAB BENEFITS. CM WAITING ADMISSION DETERMINATION FROM [facility] FOR REHAB. PT WILL NEED TO HAVE INSURANCE AUTHORIZATION FOR REHAB SERVICES. IBRAHIMA NELSON, CASE MANAGEMENT Appended by Ibrahima Nelson on 03/10/2019 15:03 CDT: CM RECEIVED CALL FROM UBAL[facility] OF [facility], , WHO INFORMED CM THAT THEY ARE STILL TRYING TO CONNECT WITH PT'S INSURANCE COMPANY TO REQUEST AUTHORIZATION OF SERVICES. CM PROVIDED PT'S SOCIAL SECURITY NUMBER AND FAXED UDPATE TO UBALDO AT [facility] AT [phone]. [facility] IS TRYING TO GET APPROVAL FOR OUT OF NETWORK SKILLED REHAB BENEFITS. CM WAITING ADMISSION DETERMINATION FROM [facility] FOR REHAB. PT WILL NEED TO HAVE INSURANCE AUTHORIZATION FOR REHAB SERVICES. FATOUMATA BHATT DCP- Discharge Planning Updated by [id number]: Ibrahima Nelson on 03/09/19 10:[address] Patient Name: MANA SAXENA Encounter No: [id number] : 1940 Primary Insurance: AETNA MEDICARE PPO or HMO Anticipated DC Date: 02-24-2019 Planned Disposition: Detention Facility External Planned Provider:[facility], MEDICARE REHAB BED DCP follow-up note: CM REVIEWED CHART, OBTAINED ORDER FOR OCCUPATIONAL THERAPY EVALUATION. CM FAXED UPDATED REFERRAL TO [facility], . CM RECEIVED CALL FROM UBALDO OF [facility], , [facility] IS NOT IN NETWORK WITH PT'S INSURANCE AND THEY HAVE SUBMITTED TO INSURANCE TO SEE IF INSURANCE WILL COVER REHAB AT [facility]. CM WAITING ADMISSION DETERMINATION FROM [facility] FOR REHAB. PT WILL NEED TO HAVE INSURANCE AUTHORIZATION FOR REHAB SERVICES. FATOUMATA BHATT DCP- Discharge Planning Updated by [id number]: Ibrahima Nelson on 03/03/19 9:[address] Patient Name: MANA SAXENA Encounter No: [id number] : 1940 Primary Insurance: AETNA MEDICARE PPO or HMO Anticipated DC Date: 02-24-2019 Planned Disposition: Detention Facility External Planned Provider: [facility], MEDICARE REHAB BED DCP follow-up note: CM RECEIVED CALL FROM PREETHI [facility] INPATIENT REHAB, UPDATE PROVIDED VIA PHONE; DOUGLAS CANCELLED REFERRAL AND INSTRUCTED CM TO SEND REFERRAL WHEN PT IS BETTER AND IF PT STILL NEEDS INPATIENT REHAB SERVICES. CM WAITING ADMISSION DETERMINATION FROM [facility] OR ICE HANDLER CARE. PT WILL NEED TO HAVE INSURANCE AUTHORIZATION WHEN OCCUPATIONAL THERAPY EVALUATION HAS BEEN COMPLETED AND RECEIVED BY [facility]. IBRAHIMA NELSON CASE MANAGEMENT DCP- Discharge Planning Updated by [id number]: Ibrahima Nelson on 03/02/19 10:[address] Patient Name: MANA SAXENA Encounter No: [id number] : 1940 Primary Insurance: AETNA MEDICARE PPO or HMO Anticipated DC Date: 02-24-2019 Planned Disposition: Inpatient Rehab External Planned Provider: [facility] INPATIENT REHAB DCP follow-up note: CM RECEIVED CALL FROM IAN [facility], THEY HAVE ACCEPTED MEDICALLY AND WILL SUBMIT TO INSURANCE FOR AUTHORIZATION FOR INPATIENT REHAB SERVICES. CM ADVISED THAT PT HAD MOVED TO ICU THIS MORNING AND THAT PT HAS BEEN REFUSING THERAPY SERVICES AND FURTHER THAT OCCUPATIONAL THERAPY EVALUATION HAS NOT YET BEEN COMPLETED. IAN WILL FOLLOW UP WITH CALL TO PT'S TO DISCUSS COMPLIANCE WITH THERAPY SERVICES TO SEE IF THE SPOUSE CAN SPEAK TO PT. CM WAITING RETURN CALL FROM PT'S SPOUSE, QUEEN ODESSA. [facility] WILL SUBMIT TO PT'S INSURANCE COMPANY FOR INPATIENT REHAB AUTHORIZATION WHEN OCCUPATIONAL THERAPY EVALUATION HAS BEEN COMPLETED AND RECEIVED. CM WAITING ADMISSION DETERMINATION FROM [facility] AND REHAB OR REHAB OR SNF CARE. PT WILL NEED TO HAVE INSURANCE AUTHORIZATION WHEN OCCUPATIONAL THERAPY EVALUATION HAS BEEN COMPLETED AND RECEIVED BY [facility]. IBRAHIMA NELSON CASE MANAGEMENT DCP- Discharge Planning Updated by [id number]: Ibrahima Nelson on 03/01/19 3:[address] Patient Name: MANA SAXENA Encounter No: [id number] : 1940 Primary Insurance: AETNA MEDICARE PPO or HMO Anticipated DC Date: 02-24-2019 Planned Disposition: Inpatient Rehab External Planned Provider: [facility] INPATIENT REHAB DCP follow-up note: CM REVIEWED CHART, OCCUPATIONAL THERAPY EVALUATION HAS STILL NOT BEEN COMPLETED / DOCUMENTED. CM FAXED BASIC REFERRAL TO [facility] FOR INPATIENT REHAB CONSIDERATION AT [phone]. CM TO FAX UPDATE WITH OCCUPATIONAL THERAPY EVALUATION WHEN IT IS COMPLETED AND DOCUMENTED. Ibrahmia Nelson, CASE MANAGEMENT Appended by Ibrahima Nelson on 03/01/2019 16:14 CDT: CM REVIEWED CHART, PT REFUSED PHYSICAL THERAPY TODAY AND THERAPY HAS SIGNED OFF DUE TO PT REFUSAL. OCCUPATIONAL THERAPY EVALUATION STILL NOT COMPLETED. IT IS CM'S EXPERIENCE THAT INSURANCE WILL NOT PAY FOR REHAB SERVICES UNLESS PT IS PARTICIPATING, WHICH THIS PT IS NOT. CM SPOKE TO PT IN ROOM WHO REPORTS HE DID NOT UNDERSTAND; PT STATES HE IS GOING HOME. WHEN CM EXPLAINED IN SLOW DETAIL THAT PT'S SPOUSE WANTS HIM TO GO TO REHAB, PT YELLS AT THAT SOMETHING MUST BE WRONG AND TO CALL . CM CALLED QUEEN ODESSA, SPOUSE, , LEFT MESSAGE ASKING FOR RETURN CALL. CM FAXED REFERRAL TO [facility] AND [facility]HAB IN [place] THAT THEY CAN GET AUTHORIZATION FOR REHAB WITH PT'S REFUSAL TO DO THERAPY OR AT LEAST CONSIDER FOR ICE HANDLER CARE. CM WAITING RETURN CALL FROM PT'S SPOUSE, QUEEN ODESSA. CM WAITING ADMISSION DETERMINATION FROM [facility] AND REHAB OR REHAB OR SNF CARE. IBRAHIMA NELSON, CASE MANAGEMENT DCP- Discharge Planning Updated by [id number]: Ibrahima Nelson on 02/26/19 12:[address] Patient Name: MANA SAXENA Encounter No: [id number] : 1940 Primary Insurance: AETNA MEDICARE PPO or HMO Anticipated DC Date: 02-24-2019 Planned Disposition: Inpatient Rehab External Planned Provider: [facility] INPATIENT REHAB DCP follow-up note: CM RECEIVED CALL FROM AYUSH OF [facility]; SHE HAD CALLED PT'S SPOUSE TO ARRANGE DELIVERY OF MANUAL WHEELCHAIR AND SPOUSE REFUSED IT STATING THAT SHE CANNOT PHYSICALLY PUSH PT IN A WHEELCHAIR AND REQEUSTED A POWER CHAIR. CM ATTEMPTED TO SEE PT'S SPOUSE IN ROOM, SHE WAS NOT THERE. CM CALLED WANG SAXENA, . HODA INFORMED THAT AN ELECTRIC WHEELCHAIR REQUIRES VERY DETAILED AND LENGHTY DOCUMENTATION THAT CANNOT BE DONE FROM HOSPITAL, REFERRED HER TO PT'S PRIMARY CARE DOCTOR. CM DISCUSSED AVAILABILITY OF REHAB SERVICES, PROVIDERS AND LOCATIONS. REPORTS SHE IS OLDER THAN PT AND IS HAVING TROUBLE CARING FOR PT IN HIS WEAKENED STATE AND WOULD LIKE REHAB AT [facility] FIRST CHOICE AND [facility] SECOND, [facility] THIRD BUT WILL NOT CONSIDER [facility] IN [place]. CHOICE LETTER COMPLETED. CHART REVIEWED, PHYSICAL THERAPY EVALUATION STILL PENDING, NO OCCUPATIONAL THERAPY HAD BEEN ORDERED. CM OBTAINED ORDER FOR OCCUPATIONAL THERAPY EVALUATION. CM TO PROVIDE REFERRAL TO [facility] FOR INPATIENT REHAB CONSIDERATION ONCE PHYSICAL AND OCCUPATIONAL THERAPY EVALUATIONS ARE COMPLETED. Ibrahima Nelson, CASE MANAGEMENT DCP- Discharge Planning Updated by [id number]: Ibrahima Nelson on 02/23/19 3:[address] Patient Name: MANA SAXENA Admission Status: ER Accout number: [id number] Admission Date: 02-22-2019 : 1940 Admission Diagnosis: Attending: CASEY NAIDU Current LOS: 1 Anticipated DC Date: 02-24-2019 Planned Disposition: Home with Home Health Primary Insurance: UNINSURED DISCOUNT PLAN PLANNED EXTERNAL PROVIDER: [facility] Discharge Planning Comments: CM RECEIVED ORDER FOR HOME HEALTH. CM MET WITH PT AND SPOUSE IN ROOM TO DISCUSS DISCHARGE PLANNING AND NEEDS. MANA SAXENA provided verbal consent to discuss current and ongoing needs with/in the presence of: SPOUSE, . ANSWERED ALL QUESTIONS. PT LIVING AT HOME DEPENDENTLY WITH SPOUSE WHO ASSISTS WITH MEDICATIONS. PT HAS BEEN GETTING WEAKER AND NOW NEEDS ASSISTANCE WITH BATHING. PT HAS WALKER WITH WHEELS, SEAT AND BRAKES AND NO MEDICAL EQUIPMENT PROVIDER PREFERENCE. PT HAS HOME HEALTH WITH [facility] FOR NURSING AND PHYSICAL THERAPY. CM DISCUSSED AVAILABILITY OF HOME HEALTH, REHAB SERVICES AND MEDICAL EQUIPMENT. PT'S SPOUSE WANTS [facility] RESUMPTION AND REPORTS NEEDING A WHEELCHAIR PT IS NO LONGER ABLE TO CLIMB THE STEPS TO GET ON THE MEDICAID BUS FOR DIALYSIS TRANSPORTATION. PT GOES TO DIALYSIS IN [place] ON MWF SCHEDULE. PT'S FAMILY TO TRANSPORT HOME AT DISCHARGE. CHOICE SIGNED FOR [facility], CHOICE FOR NO PREFERENCE FOR MEDICAL EQUIPMENT PROVIDER COMPLETED BY CM. CM COLLECTED REGISTRATION INFORMATION AND FORWARDED TO [facility] OF REGISTRATION. CM SPOKE TO BOWEN TEJADA WHO PROVIDED ORDER FOR WHEELCHAIR. CM CALLED [facility] PATIENT, , SPOKE TO [facility] AND PROVIDED REFERRAL INFORMATION FOR WHEELCHAIR. CM FAXED ORDER AND CHART INFORMATION TO [facility] PATIENT AT [phone]. [facility] PATIENT TO PROCESS ORDER FOR WHEELCHAIR DELIVERY TO PT IF QUALIFIES; PT'S INSURANCE REQUIRES PRIOR AUTHORIZATION. CM CALLED [facility], , SPOKE TO KURT, PROVIDED REFERRAL INFORMATION, PT IS ON SERVICES WITH [facility] ALREADY.. CM FAXED REFERRAL INFORMATION TO [facility], . FOR DISCHARGE, NOTIFY [facility] AT [phone]; FAX DISCHARGE INFORMATION TO [facility] AT [phone]. Trauma Director: Ibrahima Nelson DCPIA - Discharge Planning Initial Assessment Updated by [id number]: Ibrahima Nelson on 02/23/19 3:52 pm * Is the patient Alert and Oriented? Yes * How many steps to enter\\exit or inside your home? RAMP * PCP DR. VIC PAREDES IN [place] * Pharmacy [facility] IN [place] * Preadmission Environment Home with Family * ADLs Partial Dependent * Partial ADLs (Assistance needed) Bathing Medication Management * Equipment Rolling Walker * Other Equipment ROLLING WALKER WITH SEAT AND BRAKES NO MEDICAL EQUIPMENT PROVIDER PREFERENCE * List name and contact numbers for known caregivers / representatives who currently or will assist patient after discharge: QUEEN ODESSA, SPOUSE, IDRIS SAXENA, NIECE, * Verbal permission to speak to the caregivers and representatives has been obtained from the patient. Yes * Community resources currently utilized Home Health * Please name any agencies selected above. [facility], NURSING AND PHYSICAL THERAPY * Additional services required to return to the preadmission environment? No * Can the patient safely return to the preadmission environment? Yes * Has this patient been hospitalized within the prior 30 days at any hospital? Yes Coverage Notice Reviewer: [id number] Edilia Nelson Notice Issued Date-Time: 02/23/2019 15:15 Notice Type: Patient Choice Letter Notice Delivered To: Family Member Relationship to Patient: Spouse Scallop Shucker Name: QUEEN ODESSA Delivery Method: HAND - Hand Delivered Cristina Days: Prior Verbal Notification: Recipient Understood Notice: Yes Recipient Signature: Yes Med Rec Note Co-signed by Attending: Coverage Notice Comment: [employer] [facility] // [facility] Reviewer: [id number] Edilia Nelson Notice Issued Date-Time: 02/26/2019 12:00 Notice Type: Patient Choice Letter Notice Delivered To: Family Member Relationship to Patient: Spouse Scallop Shucker Name: QUEEN ODESSA Delivery Method: PHONE - Phone Cristina Days: Prior Verbal Notification: Recipient Understood Notice: Yes Recipient Signature: Med Rec Note Co-signed by Attending: Coverage Notice Comment: [facility]- [facility] 3-[facility] [place]!! Reviewer: [id number] Nelson Notice Issued Date-Time: 03/11/2019 15:50 Notice Type: Patient Choice Letter Notice Delivered To: Family Member Relationship to Patient: Spouse Scallop Shucker Name: QUEEN ODESSA Delivery Method: HAND - Hand Delivered Cristina Days: Prior Verbal Notification: Recipient Understood Notice: Yes Recipient Signature: Med Rec Note Co-signed by Attending: Coverage Notice Comment: [facility] OR [facility] Reviewer: AMELIA Nelson Notice Issued Date-Time: 03/25/2019 8:45 Notice Type: IM Discharge Notice Notice Delivered To: Patient Relationship to Patient: Scallop Shucker Name: Delivery Method: HAND - Hand Delivered Cristina Days: Prior Verbal Notification: Recipient Understood Notice: Yes Recipient Signature: Yes Med Rec Note Co-signed by Attending: Coverage Notice Comment: Last DP export: 03/24/19 3:40 p Patient Name: MANA SAXENA Page [id number] at 0915 All edits/amendments must be made on the electronic document DICTATION DATE: 03/25/19913 CHASER APPRENTICE: GRACE 03/25/19913 RPT#: [id number] DC DATE: STATUS: ADM IN [facility] [address] [place] [address] END OF REPORT
--- NOTE | 2019-03-25 10:40 | NUR ---
ASSISTED ONTO AND OFF BEDSIDE COMMODE. CL/PHONE IN REACH. TM
[2019-03-25 11:21] VITALS: BP 126/66
--- NOTE | 2019-03-25 13:00 | MORECARE ---
CASE MANAGEMENT DISCHARGE SUMMARY PATIENT: MANA SAXENA UNIT: [id number] ADM DATE: 02/24/19 AGE: 78 : 38 SEX: M ROOM/BED: D.2108 AUTHOR: BJ,DOC PHYSICIAN: REFERRING PHYSICIAN: CASEY NAIDU MD DATE OF SERVICE: 03/25/19 Discharge Plan Patient Name: MANA SAXENA Facility: [facility]:[place] : 1940 Planned Disposition: Jail Facility Anticipated Discharge Date: 03/25/19 Discharge Date: Expected LOS: 29 Initial Reviewer: [id number] Initial Review Date: 02/22/2019 Generated: 03/25/19 2:00 pm Comments DCP- Discharge Planning Updated by [id number]: Ibrahima Nelson on 03/25/19 11:[address] Patient Name: MANA SAXENA Encounter No: [id number] : 1940 Primary Insurance: AETNA MEDICARE PPO or HMO Anticipated DC Date: 03-25-2019 Planned Disposition: Jail Facility External Planned Provider: [facility], MEDICARE REHAB BED DCP follow-up note: CM RECEIVED MESSAGE FROM [facility], INSURANCE HAS APPROVED REHAB SERVICES. PT AND SPOUSE NOTIFED IN ROOM, BOTH IN AGREEMENT WITH DISCHARGE TO [facility] TODAY. BOWEN DIEGO NOTIFIED. DISCHARGE ORDERS RECEIVED. ON AIR TALENT NURSE NOTIFIED. CM FAXED DISCHARGE INFORMATION TO [facility] AT [phone]. NURSE REPORT TO BE CALLED TO [facility] AT [phone]. [facility] TO ARRANGE VAN TRANSPORTATION. Ibrahima Nelson CASE VERO DCP- Discharge Planning Updated by [id number]: Ibrahima Nelson on 03/25/19 8:[address] Patient Name: MANA SAXENA Encounter No: [id number] : 1940 Primary Insurance: AETNA MEDICARE PPO or HMO Anticipated DC Date: 03-22-2019 Planned Disposition: Nursing Facility [facility] Cert External Planned Provider: [facility], MEDICARE REHAB BED DCP follow-up note: HODA FAXED UPDATE TO [facility], . CM SPOKE TO PT IN ROOM, PT STILL WANTING REHAB AT [facility]. PT ASKED WHAT IS GOING ON WITH HIS INSURANCE. CM EXPLAINED THAT THE INSURANCE TURF FARMER WAS REVIEWING IT AND THE INSURANCE HAD ASKED WHAT PT'S PRIOR LEVEL OF FUNCTIONING WAS PRIOR TO HOSPITAL STAY. PT STATES HE JUST NEEDS REHAB, IS NOT GOING FOR PADDING GLUER CARE AND WISHES THAT INSURANCE WOULD HURRY UP. CM EXPLAINED THAT ALL IS BEING DONE FROM THE HOSPITAL THAT CAN BE DONE. PT ASKED CM TO CALL HIS AND TELL HER TO BRING FINGERNAIL CLIPPERS. CM DID PT REQUESTED. IMPORTANT MESSAGE FROM MEDICARE PROVIDED AND EXPLAINED. PT'S SPOUSE REFUSING PRISON CARE AND INSISTING ON SKILLED NUSING REHAB. [facility]. CM WAITING INSURANCE FOR AUTHORIZATION OF REHAB SERVICES AT [facility], LAST WORD FROM INSURANCE YESTERDAY WAS THE INSURANCE TURF FARMER WAS REVIEWING. IBRAHIMA NELSON,CASE MANAGEMENT Ibrahima Nelson DCP- Discharge Planning Updated by [id number]: Ibrahima Nelson on 03/24/19 3:[address] Patient Name: MANA SAXENA Encounter No: [id number] : 1940 Primary Insurance: AETNA MEDICARE PPO or HMO Anticipated DC Date: 03-22-2019 Planned Disposition: Nursing Facility [facility] Cert External Planned Provider:[facility], MEDICARE REHAB BED DCP follow-up note: CM RECEIVED CALL FROM QUEEN ODESSA, PT'S SPOUSE, WHO HAS CALLED INSURANCE AND ASKED FOR EXPEDITED SERVICE ON AUTHORIZATION. CM FAXED UPDATE TO PUJA OF [facility], WITH UPDATED BLOOD CULTURE RESULT OF NEGATIVE ON DAY FIVE TO [facility] . CM RECEIVED CALL FROM ANTHONY [facility] WHO REQUESTED UPDATE, CM FAXED REQUEST TO ANTHONY AT [phone]. PT'S SPOUSE REFUSING PADDING GLUER CARE AND INSISTING ON SKILLED NUSING REHAB. [facility] NOW WANTS NEW BLOOD CULTURE RESULT SHOWING NO INFECTION. CM WAITING INSURANCE FOR AUTHORIZATION. OF REHAB SERVICES AT [facility]. IBRAHIMA NELSON,CASE MANAGEMENT Appended by Ibrahima Nelson on 03/24/2019 16:39 CDT: CM RECEIVED CALL FROM PUJA WHO INFORMED CM THAT PT'S REQUEST FOR [facility] AUTHORIZATION IS GOING FOR REVIEW BEFORE THE INSURANCE TURF FARMER. PT'S SPOUSE REFUSING PRISON CARE AND INSISTING ON SKILLED NUSING REHAB. [facility]. CM WAITING INSURANCE FOR AUTHORIZATION. OF REHAB SERVICES AT [facility]. FATOUMATA ALVARENGA DCP- Discharge Planning Updated by [id number]: Ibrahima Nelson on 03/23/19 10:[address] Patient Name: MANA SAXENA Encounter No: [id number] : 1940 Primary Insurance: AETNA MEDICARE PPO or HMO Anticipated DC Date: 03-22-2019 Planned Disposition: Nursing Facility [facility] Cert External Planned Provider: [facility], MEDICARE REHAB BED DCP follow-up note: CM FAXED UPDATE TO [facility], WITH UPDATED BLOOD CULTURE RESULT OF NEGATIVE ON DAY FOUR TO [facility] VIA PUJA AT [phone]. PT'S SPOUSE REFUSING PRISON CARE AND INSISTING ON SKILLED NUSING REHAB. [facility] NOW WANTS NEW BLOOD CULTURE RESULT SHOWING NO INFECTION. CM WAITING INSURANCE FOR AUTHORIZATION. OF REHAB SERVICES AT [facility]. FATOUMATA ALVARENGA DCP- Discharge Planning Updated by [id number]: Ibrahima Nelson on 03/19/19 4:[address] Patient Name: MANA SAXENA Encounter No: [id number] : 1940 Primary Insurance: AETNA MEDICARE PPO or HMO Anticipated DC Date: 03-22-2019 Planned Disposition: Nursing Facility [facility] Cert External Planned Provider: [facility], MEDICARE REHAB BED DCP follow-up note: CM FAXED UPDATE TO [facility], . PT'S SPOUSE REFUSING PRISON CARE AND INSISTING ON SKILLED NUSING REHAB. [facility] NOW WANTS NEW BLOOD CULTURE RESULT SHOWING NO INFECTION PRIOR TO SENDING TO INSURANCE FOR AUTHORIZATION. CM WAITING BLOOD CULTURE RESULT. IBRAHIMA NELSONCASE MANAGEMENT Appended by Ibrahima Nelson on 03/19/2019 17:40 CDT: CM FAXED PRELIMINARY BLOOD CULTURE RESULT OF NEGATIVE ON DAY ONE TO [facility] VIA PUJA AT [phone]. PT'S SPOUSE REFUSING PADDING GLUER CARE AND INSISTING ON SKILLED NUSING REHAB. [facility] NOW WANTS NEW BLOOD CULTURE RESULT SHOWING NO INFECTION PRIOR TO SENDING TO INSURANCE FOR AUTHORIZATION. CM WAITING FINAL BLOOD CULTURE RESULT. FATOUMATA ALVARENGA DCP- Discharge Planning Updated by [id number]: Ibrahima Nelson on 03/18/19 10:[address] Patient Name: MANA SAXENA Encounter No: [id number] : 1940 Primary Insurance: AETNA MEDICARE PPO or HMO Anticipated DC Date: 03-22-2019 Planned Disposition: Nursing Facility [facility] Cert External Planned Provider: [facility], MEDICARE REHAB BED DCP follow-up note: CM FAXED UPDATE TO [facility], . CM RECEIVED MESSAGE FROM PUJA WHO INFORMED CM THAT [facility] PLANS TO ACCEPT BUT WILL NOT SEND FOR INSURANCE AUTHORIZATION OR MAKE FINAL ADMISSION DETERMINATION UNTIL NEW BLOOD CULTURE IS DONE TO SHOW PT IS CLEAR OF INFECTION. CM NOTIFIED BOWEN TEJADA. CM MET WITH PT AND FAMILY, DISCUSSED ABOVE. PT'S SPOUSE REFUSING PADDING GLUER CARE AND INSISTING ON SKILLED NUSING REHAB. [facility] NOW WANTS NEW BLOOD CULTURE RESULT SHOWING NO INFECTION PRIOR TO SENDING TO INSURANCE FOR AUTHORIZATION. CM WAITING BLOOD CULTURE RESULT. IBRAHIMA NELSON,CASE MANAGEMENT DCP- Discharge Planning Updated by [id number]: Ibrahima Nelson on 03/17/19 7:[address] Patient Name: MANA SAXENA Encounter No: [id number] : 1940 Primary Insurance: AETNA MEDICARE PPO or HMO Anticipated DC Date: 03-15-2019 Planned Disposition: Nursing Facility [facility] Cert External Planned Provider: [facility], MEDICARE REHAB BED DCP follow-up note: CM FAXED UPDATE TO [facility], . PT'S SPOUSE REFUSING PRISON CARE AND INSISTING ON SKILLED NUSING REHAB WHICH REQUIRES PT TO PARTICIPATE IN THERAPY SERVICES. HOPEFULLY WILL HAVE ENOUGH PARTICIPATION TO SECURE INSURANCE AUTHORIZATION FOR REHAB PLACEMENT AT [facility]. IBRAHIMA NELSON,CASE MANAGEMENT DCP- Discharge Planning Updated by [id number]: Ibrahima Nelson on 03/16/19 3:[address] Patient Name: MANA SAXENA Encounter No: [id number] : 1940 Primary Insurance: AETNA MEDICARE PPO or HMO Anticipated DC Date: 03-15-2019 Planned Disposition: Nursing Facility [facility] Cert External Planned Provider: [facility], LONG TERM CARE MEDICAID BED DCP follow-up note: CM FAXED UPDATE TO [facility], . PT'S SPOUSE REFUSING PADDING GLUER CARE AND INSISTING ON SKILLED NUSING REHAB WHICH REQUIRES PT TO PARTICIPATE IN THERAPY SERVICES. CM TO SEND THERAPY UPDATE TOMORROW, HOPEFULLY WILL HAVE ENOUGH PARTICIPATION TO SECURE REHAB PLACEMENT AT [facility]. IBRAHIMA NELSON,CASE MANAGEMENT DCP- Discharge Planning Updated by [id number]: Ibrahima Nelson on 03/15/19 1:[address] Patient Name: MANA SAXENA Encounter No: [id number] : 1940 Primary Insurance: AETNA MEDICARE PPO or HMO Anticipated DC Date: 03-15-2019 Planned Disposition: Nursing Facility [facility] Cert External Planned Provider: [facility], LONG TERM CARE MEDICAID BED DCP follow-up note: CM RECEIVED MESSAGE FROM PUJA [facility], PT'S INSURANCE WILL NOT APPROVE REHAB SERVICES PT HAS BEEN REFUSING THERAPY. [facility] WILL ACCEPT FOR PRISON CARE IF PT'S FAMILY AGREES AND WILL WORK OUT FINANCIAL ARRANGEMENTS. HODA CALLED AND NOTIFIED QUEEN ODESSA AT [phone] WHO INFORMED CM THAT SHE IS NOT ABLE TO TAKE CARE OF PT AT HOME BY HERSELF AND WILL DISCUSS PADDING GLUER CARE ARRANGEMENTS WITH [facility]. HODA NOTIFIED PUJA OF [facility]. [facility] ROLLER COASTER DESIGNER CALLING PT'S NOW TO DISCUSS FINANCIAL ARRANGEMENTS FOR PADDING GLUER CARE PLACEMENT. CM WAITING FAMILY AND CORRECTION TO WORK OUT FINANCIAL ARRANGEMENTS FOR PADDING GLUER CARE CORRECTION PLACEMENT. Ibrahima Nelson, CASE MANAGEMENT Appended by Ibrahima Nelson on 03/15/2019 14:55 CDT: HODA RECEIVED CALL FROM ODESSA, , WHO STATED THAT SHE DID NOT KNOW THAT PT HAD TO PARTICIPATE WITH THERAPY FOR INSURANCE TO PAY FOR HIM TO GO TO REHAB. WANG STATES THAT SHE IS COMING TO HOSPITAL THIS AFTERNOON TO SPEAK TO PT AND TELL HIM HE HAS TO PARTIPATE WITH THERAPY SO HE CAN GO TO REHAB AT [facility]. HODA EXPLAINED PT [facility], WANG STATES SHE DOES NOT WANT PT IN PRISON CARE AND WILL COME AND TELL PT TO PARTICIPATE IN THERAPY AT [facility] SO HE CAN GO TO REHAB AT [facility]. HODA NOTIFIED BOWEN TEJADA. CM WAITING ON PT'S SPOUSE TO SPEAK TO HIM IN THE ROOM REGARDING PARTICIPATING WITH HOSPITAL THERAPY SO INSURANCE WILL PAY FOR SKILLED REHAB; PT'S SPOUSE REFUSING PRISON CARE AND INSISTING ON SKILLED NUSING REHAB WHICH REQUIRES PT TO PARTICIPATE IN THERAPY SERVICES. CM TO CONTINUE TO FOLLOW AND ASSIST. IBRAHIMA NELSONCASE MANAGEMENT DCP- Discharge Planning Updated by [id number]: Ibrahima Nelson on 03/15/19 6:[address] Patient Name: MANA SAXENA Encounter No: [id number] : 1940 Primary Insurance: AETNA MEDICARE PPO or HMO Anticipated DC Date: 02-24-2019 Planned Disposition: Jail Facility External Planned Provider:[facility], MEDICARE REHAB BED DCP follow-up note: CM NOTIFIED [facility] THAT PT MAY DISCHARGE TO REHAB TODAY. CM FAXED UPDATE WITH THERAPY NOTES TO [facility] VIA [facility] AT [phone]. CM WAITING ADMISSION DETERMINATION AND INSURANCE AUTHORIZATION FOR REHAB AT [facility]. Ibrahima Nelson CASE MANAGEMENT DCP- Discharge Planning Updated by [id number]: Ibrahima Nelson on 03/12/19 3:[address] Patient Name: MANA SAXENA Encounter No: [id number] : 1940 Primary Insurance: AETNA MEDICARE PPO or HMO Anticipated DC Date: 02-24-2019 Planned Disposition: Jail Facility External Planned Provider: [facility], MEDICARE REHAB BED DCP follow-up note: CM RECEIVED CALL FROM PUJA [facility]; REFERRAL WAS RECEIVED, PT'S INSURANCE WILL PAY OUT OF NETWORK BENEFITS JUST THE SAME IN NETWORK TO [facility]. PT WILL NEED THERAPY NOTES WITH PATIENT PARTICIPATION TO GET INSURANCE AUTHORIZATION FOR REHAB. PT NEEDS THERAPY NOTES DOCUMENTING PATIENT PARTICIPATION FOR INSURANCE TO AUTHORIZE . CM WAITING ADMISSION DETERMINATION AND INSURANCE AUTHORIZATION FOR REHAB AT [facility]. Ibrahima Nelson CASE MANAGEMENT DCP- Discharge Planning Updated by [id number]: Ibrahima Nelson on 03/11/19 1:[address] Patient Name: MANA SAXENA Encounter No: [id number] : 1940 Primary Insurance: AETNA MEDICARE PPO or HMO Anticipated DC Date: 02-24-2019 Planned Disposition: Jail Facility External Planned Provider: [facility], MEDICARE REHAB BED DCP follow-up note: CM RECEIVED CALL FROM [facility], THEY ARE OUT OF INSURANCE NETWORK AND CANNOT ACCEPT PT. CM SPOKE TO PT AND SPOUSE IN ROOM. REPORTS IT IS OK TO SEND REFERRAL TO [facility] AND IF THEY DON'T ACCEPT, ANY IN NETWORK FACILITY WILL HAVE TO DO, JUST NOT [facility] IN [place]. CHOICE LETTER COMPLETED. QUEEN ODESSA PROVIDED INSURANCE CUSTOMER SERVICES NUMBER OF AND WEBSITE ADDRESS "[email or web address]" FOR CM USE IF NEEDED. CM NOTIFIED PUJA OF [facility] OF REHAB REFERRAL, . CM FAXED REFERRAL TO [facility] VIA PUJA AT [phone]. CM WAITING ADMISSION DETERMINATION AND INSURANCE AUTHORIZATION FOR REHAB AT [facility]. FATOUMATA Alvarenga MANAGEMENT DCP- Discharge Planning Updated by [id number]: Ibrahima Nelson on 03/10/19 2:[address] Patient Name: MANA SAXENA Encounter No: [id number] : 1940 Primary Insurance: AETNA MEDICARE PPO or HMO Anticipated DC Date: 02-24-2019 Planned Disposition: Jail Facility External [email or web address] [facility], MEDICARE REHAB BED DCP follow-up note: CM FAXED UDPATE WITH OT EVALUATION TO UBALDO AT [facility] AT [phone]. [facility] GET [facility]PR[facility]AL FOR OUT OF NETWORK SKILLED REHAB BENEFITS. CM WAITING ADMISSION DETERMINATION FROM [facility] AND [facility]AB FOR REHAB. PT WILL NEED TO HAVE INSURANCE AUTHORIZATION FOR REHAB SERVICES. IBRAHIMA NELSON CASE MANAGEMENT Appended by Ibrahima Nelson on 03/10/2019 15:03 CDT: CM RECEIVED CALL FROM UBALDO OF [facility], , WHO INFORMED CM THAT THEY ARE STILL TRYING TO CONNECT WITH PT'S INSURANCE COMPANY TO REQUEST AUTHORIZATION OF SERVICES. CM PROVIDED PT'S SOCIAL SECURITY NUMBER AND FAXED UDPATE TO UBALDO AT [facility] AT [phone]. [facility] GET APPROVAL FOR OUT OF NETWORK SKILLED REHAB BENEFITS. CM WAITING ADMISSION DETERMINATION FROM [facility] AND REHAB FOR REHAB. PT WILL NEED TO HAVE INSURANCE AUTHORIZATION FOR REHAB SERVICES. FATOUMATA ALVARENGA DCP- Discharge Planning Updated by [id number]: Ibrahima Nelson on 03/09/19 10:[address] Patient Name: MANA SAXENA Encounter No: [id number] : 1940 Primary Insurance: AETNA MEDICARE PPO or HMO Anticipated DC Date: 02-24-2019 Planned Disposition: Jail Facility External Planned Provider:[facility], MEDICARE REHAB BED DCP follow-up note: CM REVIEWED CHART, OBTAINED ORDER FOR OCCUPATIONAL THERAPY EVALUATION. CM FAXED UPDATED REFERRAL TO [facility], . CM RECEIVED CALL FROM UBALDO OF [facility], , [facility] IS NOT IN NETWORK WITH PT'S INSURANCE AND THEY HAVE SUBMITTED TO INSURANCE TO SEE IF INSURANCE WILL COVER REHAB AT [facility]. CM WAITING ADMISSION DETERMINATION FROM [facility] AND [facility] FOR REH[facility]. PT WILL NEED TO HAVE INSURANCE AUTHORIZATION FOR REHAB SERVICES. IBRAHIMA NELSON CASE MANAGEMENT DCP- Discharge Planning Updated by [id number]: Ibrahima Nelson on 03/03/19 9:[address] Patient Name: MANA SAXENA Encounter No: [id number] : 1940 Primary Insurance: AETNA MEDICARE PPO or HMO Anticipated DC Date: 02-24-2019 Planned Disposition: Jail Facility External Planned Provider: [facility], MEDICARE REHAB BED DCP follow-up note: CM RECEIVED CALL FROM [facility], UPDATE PROVIDED VIA PHONE; DOUGLAS CANCELLED REFERRAL AND INSTRUCTED CM TO SEND REFERRAL WHEN PT IS BETTER AND IF PT STILL NEEDS INPATIENT REHAB SERVICES. CM WAITING ADMISSION DETERMINATION FROM [facility] FOR REHAB OR PRISON CARE. PT WILL NEED TO HAVE INSURANCE AUTHORIZATION WHEN OCCUPATIONAL THERAPY EVALUATION HAS BEEN COMPLETED AND RECEIVED BY [facility]. IBRAHIMA NELSON CASE MANAGEMENT DCP- Discharge Planning Updated by [id number]: Ibrahima Nelson on 03/02/19 10:[address] Patient Name: MANA SAXENA Encounter No: [id number] : 1940 Primary Insurance: AETNA MEDICARE PPO or HMO Anticipated DC Date: 02-24-2019 Planned Disposition: Inpatient Rehab External Planned Provider: [facility] INPATIENT REHAB DCP follow-up note: CM RECEIVED CALL FROM IAN OF [facility], THEY HAVE ACCEPTED MEDICALLY AND WILL SUBMIT TO INSURANCE FOR AUTHORIZATION FOR INPATIENT REHAB SERVICES. CM ADVISED THAT PT HAD MOVED TO ICU THIS MORNING AND THAT PT HAS BEEN REFUSING THERAPY SERVICES AND FURTHER THAT OCCUPATIONAL THERAPY EVALUATION HAS NOT YET BEEN COMPLETED. IAN WILL FOLLOW UP WITH CALL TO PT'S TO DISCUSS COMPLIANCE WITH THERAPY SERVICES TO SEE IF THE SPOUSE CAN SPEAK TO PT. CM WAITING RETURN CALL FROM PT'S SPOUSE, QUEEN ODESSA. [facility] WILL SUBMIT TO PT'S INSURANCE COMPANY FOR INPATIENT REHAB AUTHORIZATION WHEN OCCUPATIONAL THERAPY EVALUATION HAS BEEN COMPLETED AND RECEIVED. CM WAITING ADMISSION DETERMINATION FROM [facility]HAB OR REHAB OR PRISON CARE. PT WILL NEED TO HAVE INSURANCE AUTHORIZATION WHEN OCCUPATIONAL THERAPY EVALUATION HAS BEEN COMPLETED AND RECEIVED BY [facility]. IBRAHIMA NELSON CASE MANAGEMENT DCP- Discharge Planning Updated by [id number]: Ibrahima Nelson on 03/01/19 3:[address] Patient Name: MANA SAXENA Encounter No: [id number] : 1940 Primary Insurance: AETNA MEDICARE PPO or HMO Anticipated DC Date: 02-24-2019 Planned Disposition: Inpatient Rehab External Planned Provider: [facility] INPATIENT REHAB DCP follow-up note: HODA REVIEWED CHART, OCCUPATIONAL THERAPY EVALUATION HAS STILL NOT BEEN COMPLETED / DOCUMENTED. CM FAXED BASIC REFERRAL TO [facility] FOR INPATIENT REHAB CONSIDERATION AT [phone]. CM TO FAX UPDATE WITH OCCUPATIONAL THERAPY EVALUATION WHEN IT IS COMPLETED AND DOCUMENTED. Ibrahima Nelson CASE MANAGEMENT Appended by Ibrahima Nelson on 03/01/2019 16:14 CDT: HODA REVIEWED CHART, PT REFUSED PHYSICAL THERAPY TODAY AND THERAPY HAS SIGNED OFF DUE TO PT REFUSAL. OCCUPATIONAL THERAPY EVALUATION STILL NOT COMPLETED. IT IS CM'S EXPERIENCE THAT INSURANCE WILL NOT PAY FOR REHAB SERVICES UNLESS PT IS PARTICIPATING, WHICH THIS PT IS NOT. CM SPOKE TO PT IN ROOM WHO REPORTS HE DID NOT UNDERSTAND; PT STATES HE IS GOING HOME. WHEN CM EXPLAINED IN SLOW DETAIL THAT PT'S SPOUSE WANTS HIM TO GO TO REHAB, PT YELLS AT THAT SOMETHING MUST BE WRONG AND TO CALL WANG. CM CALLED QUEEN ODESSA, SPOUSE, , LEFT MESSAGE ASKING FOR RETURN CALL. CM FAXED REFERRAL TO [facility] IN [place] THAT THEY CAN GET AUTHORIZATION FOR REHAB WITH PT'S REFUSAL TO DO THERAPY OR AT LEAST CONSIDER FOR PRISON CARE. CM WAITING RETURN CALL FROM PT'S SPOUSE, QUEEN ODESSA. CM WAITING ADMISSION DETERMINATION FROM [facility] AND REHAB OR REHAB OR PADDING GLUER CARE. IBRAHIMA NELSON CASE MANAGEMENT DCP- Discharge Planning Updated by [id number]: Ibrahima Nelson on 02/26/19 12:[address] Patient Name: MANA SAXENA Encounter No: [id number] : 1940 Primary Insurance: AETNA MEDICARE PPO or HMO Anticipated DC Date: 02-24-2019 Planned Disposition: Inpatient Rehab External Planned Provider: [facility] INPATIENT REHAB DCP follow-up note: CM RECEIVED CALL FROM AYUSH OF [facility] PATIENT; SHE HAD CALLED PT'S SPOUSE TO ARRANGE DELIVERY OF MANUAL WHEELCHAIR AND SPOUSE REFUSED IT STATING THAT SHE CANNOT PHYSICALLY PUSH PT IN A WHEELCHAIR AND REQEUSTED A POWER CHAIR. CM ATTEMPTED TO SEE PT'S SPOUSE IN ROOM, SHE WAS NOT THERE. CM CALLED QUEEN ODESSA, . CM INFORMED THAT AN ELECTRIC WHEELCHAIR REQUIRES VERY DETAILED AND LENGHTY DOCUMENTATION THAT CANNOT BE DONE FROM HOSPITAL, REFERRED HER TO PT'S PRIMARY CARE DOCTOR. CM DISCUSSED AVAILABILITY OF REHAB SERVICES, PROVIDERS AND LOCATIONS. REPORTS SHE IS OLDER THAN PT AND IS HAVING TROUBLE CARING FOR PT IN HIS WEAKENED STATE AND WOULD LIKE REHAB AT [facility] FIRST CHOICE AND [facility] SECOND, [facility] THIRD BUT WILL NOT CONSIDER [facility] IN [place]. CHOICE LETTER COMPLETED. CHART REVIEWED, PHYSICAL THERAPY EVALUATION STILL PENDING, NO OCCUPATIONAL THERAPY HAD BEEN ORDERED. CM OBTAINED ORDER FOR OCCUPATIONAL THERAPY EVALUATION. CM TO PROVIDE REFERRAL TO [facility] FOR INPATIENT REHAB CONSIDERATION ONCE PHYSICAL AND OCCUPATIONAL THERAPY EVALUATIONS ARE COMPLETED. FATOUMATA Alvarenga DCP- Discharge Planning Updated by [id number]: Ibrahima Nelson on 02/23/19 3:[address] Patient Name: MANA SAXENA Admission Status: ER Accout number: [id number] Admission Date: 02-22-2019 : 1940 Admission Diagnosis: Attending: CASEY NAIDU Current LOS: 1 Anticipated DC Date: 02-24-2019 Planned Disposition: Home with Home Health Primary Insurance: UNINSURED DISCOUNT PLAN PLANNED EXTERNAL PROVIDER: [facility] Discharge Planning Comments: CM RECEIVED ORDER FOR HOME HEALTH. CM MET WITH PT AND SPOUSE IN ROOM TO DISCUSS DISCHARGE PLANNING AND NEEDS. MANA SAXENA provided verbal consent to discuss current and ongoing needs with/in the presence of: SPOUSEQUEEN. ANSWERED ALL QUESTIONS. PT LIVING AT HOME DEPENDENTLY WITH SPOUSE WHO ASSISTS WITH MEDICATIONS. PT HAS BEEN GETTING WEAKER AND NOW NEEDS ASSISTANCE WITH BATHING. PT HAS WALKER WITH WHEELS, SEAT AND BRAKES AND NO MEDICAL EQUIPMENT PROVIDER PREFERENCE. PT HAS HOME HEALTH WITH [facility] FOR NURSING AND PHYSICAL THERAPY. CM DISCUSSED AVAILABILITY OF HOME HEALTH, REHAB SERVICES AND MEDICAL EQUIPMENT. PT'S SPOUSE WANTS [facility] RESUMPTION AND REPORTS NEEDING A WHEELCHAIR PT IS NO LONGER ABLE TO CLIMB THE STEPS TO GET ON THE MEDICAID BUS FOR DIALYSIS TRANSPORTATION. PT GOES TO DIALYSIS IN [place] ON MWF SCHEDULE. PT'S FAMILY TO TRANSPORT HOME AT DISCHARGE. CHOICE SIGNED FOR [facility], CHOICE FOR NO PREFERENCE FOR MEDICAL EQUIPMENT PROVIDER COMPLETED BY CM. CM COLLECTED REGISTRATION INFORMATION AND FORWARDED TO [place] OF REGISTRATION. CM SPOKE TO BOWEN TEJADA WHO PROVIDED ORDER FOR WHEELCHAIR. CM CALLED [facility] PATIENT, , SPOKE TO AYUSH AND PROVIDED REFERRAL INFORMATION FOR WHEELCHAIR. CM FAXED ORDER AND CHART INFORMATION TO [facility] PATIENT AT [phone]. [facility] PATIENT TO PROCESS ORDER FOR WHEELCHAIR DELIVERY TO PT IF QUALIFIES; PT'S INSURANCE REQUIRES PRIOR AUTHORIZATION. CM CALLED [facility], , SPOKE TO KURT, PROVIDED REFERRAL INFORMATION, PT IS ON SERVICES WITH [facility] ALREADY.. CM FAXED REFERRAL INFORMATION TO [facility], . FOR DISCHARGE, NOTIFY [facility] AT [phone]; FAX DISCHARGE INFORMATION TO [facility] AT [phone]. Rheumatology Specialist: Ibrahima Nelson DCPIA - Discharge Planning Initial Assessment Updated by [id number]: Ibrahima Nelson on 02/23/19 3:52 pm * Is the patient Alert and Oriented? Yes * How many steps to enter\\exit or inside your home? RAMP * PCP DR. VIC PAREDES IN [place] * Pharmacy [facility] IN [place] * Preadmission Environment Home with Family * ADLs Partial Dependent * Partial ADLs (Assistance needed) Bathing Medication Management * Equipment Rolling Walker * Other Equipment ROLLING WALKER WITH SEAT AND BRAKES NO MEDICAL EQUIPMENT PROVIDER PREFERENCE * List name and contact numbers for known caregivers / representatives who currently or will assist patient after discharge: QUEEN ODESSA, SPOUSE, IDRIS SAXENA, NIECE, * Verbal permission to speak to the caregivers and representatives has been obtained from the patient. Yes * Community resources currently utilized Home Health * Please name any agencies selected above. [facility], NURSING AND PHYSICAL THERAPY * Additional services required to return to the preadmission environment? No * Can the patient safely return to the preadmission environment? Yes * Has this patient been hospitalized within the prior 30 days at any hospital? Yes Coverage Notice Reviewer: AMELIA Nelson Notice Issued Date-Time: 02/23/2019 15:15 Notice Type: Patient Choice Letter Notice Delivered To: Family Member Relationship to Patient: Spouse Airplane Patroller Name: QUEEN ODESSA Delivery Method: HAND - Hand Delivered Cristina Days: Prior Verbal Notification: Recipient Understood Notice: Yes Recipient Signature: Yes Med Rec Note Co-signed by Attending: Coverage Notice Comment: [facility] [employer] [facility] [place] // [facility] Reviewer: AMELIA Nelson Notice Issued Date-Time: 02/26/2019 12:00 Notice Type: Patient Choice Letter Notice Delivered To: Family Member Relationship to Patient: Spouse Airplane Patroller Name: QUEEN ODESSA Delivery Method: PHONE - Phone Cristina Days: Prior Verbal Notification: Recipient Understood Notice: Yes Recipient Signature: Med Rec Note Co-signed by Attending: Coverage Notice Comment: [facility]- [facility]!! 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
--- NOTE | 2019-03-25 13:40 | NUR ---
CVL REMOVED FROM PATIENT'S LEFT GROIN VIA [facility]. I HELD PRESSURE ON THE DRESSING. THERE WAS NO BLOOD UPON REMOVAL OR ON THE DRESSING. TOLERATED WELL. DRESSED FOR DISCHARGE. NO NEEDS. CL IN REACH IN ROOM.
--- NOTE | 2019-03-25 14:08 | NUR ---
DISCHARGE PAPERS SIGNED BY WANG THE . PATIENT DRESSED AND READY TO BE PICKED UP BY 1500. REPORT CALLED TO [facility] AND SPOKE WITH CHANDRA JOAQUIN. CL IN REACH. [place]
--- NOTE | 2019-03-25 14:28 | MORECARE ---
CASE MANAGEMENT DISCHARGE SUMMARY PATIENT: MANA SAXENA UNIT: [id number] ADM DATE: 02/24/19 AGE: 78 : 38 SEX: M ROOM/BED: D.210 AUTHOR: BJ,DOC PHYSICIAN: REFERRING PHYSICIAN: CASEY NAIDU MD DATE OF SERVICE: 03/25/19 Discharge Plan Patient Name: MANA SAXENA Facility: [facility]:[place] : 1940 Planned Disposition: Penitentiary Facility Anticipated Discharge Date: 03/25/19 Discharge Date: Expected LOS: 29 Initial Reviewer: [id number] Initial Review Date: 02/22/2019 Generated: 03/25/19 3:27 pm Comments DCP- Discharge Planning Updated by [id number]: Ibrahima Nelson on 03/25/19 11:[address] Patient Name: MANA SAXENA Encounter No: [id number] : 1940 Primary Insurance: AETNA MEDICARE PPO or HMO Anticipated DC Date: 03-25-2019 Planned Disposition: Penitentiary Facility External Planned Provider: [facility], MEDICARE REHAB BED DCP follow-up note: CM RECEIVED MESSAGE FROM [facility], INSURANCE HAS APPROVED REHAB SERVICES. PT AND SPOUSE NOTIFED IN ROOM, BOTH IN AGREEMENT WITH DISCHARGE TO [facility] TODAY. BOWEN DIEGO NOTIFIED. DISCHARGE ORDERS RECEIVED. ASSURANCE AUDITOR NURSE NOTIFIED. CM FAXED DISCHARGE INFORMATION TO [facility] AT [phone]. NURSE REPORT TO BE CALLED TO [facility] AT [phone]. [facility] TO ARRANGE VAN TRANSPORTATION. Ibrahima Nelson CASE VERO DCP- Discharge Planning Updated by [id number]: Ibrahima Nelson on 03/25/19 8:[address] Patient Name: MANA SAXENA Encounter No: [id number] : 1940 Primary Insurance: AETNA MEDICARE PPO or HMO Anticipated DC Date: 03-22-2019 Planned Disposition: Nursing Facility [facility] Cert External Planned Provider: [facility], MEDICARE REHAB BED DCP follow-up note: HODA FAXED UPDATE TO [facility], . CM SPOKE TO PT IN ROOM, PT STILL WANTING REHAB AT [facility]. PT ASKED WHAT IS GOING ON WITH HIS INSURANCE. CM EXPLAINED THAT THE INSURANCE MANAGER CREDIT COLLECTIONS WAS REVIEWING IT AND THE INSURANCE HAD ASKED WHAT PT'S PRIOR LEVEL OF FUNCTIONING WAS PRIOR TO HOSPITAL STAY. PT STATES HE JUST NEEDS REHAB, IS NOT GOING FOR MEDICAL TERMINOLOGIST CARE AND WISHES THAT INSURANCE WOULD HURRY UP. CM EXPLAINED THAT ALL IS BEING DONE FROM THE HOSPITAL THAT CAN BE DONE. PT ASKED CM TO CALL HIS AND TELL HER TO BRING FINGERNAIL CLIPPERS. CM DID PT REQUESTED. IMPORTANT MESSAGE FROM MEDICARE PROVIDED AND EXPLAINED. PT'S SPOUSE REFUSING LONGTERM CARE AND INSISTING ON SKILLED NUSING REHAB. [facility]. CM WAITING INSURANCE FOR AUTHORIZATION OF REHAB SERVICES AT [facility], LAST WORD FROM INSURANCE YESTERDAY WAS THE INSURANCE MANAGER CREDIT COLLECTIONS WAS REVIEWING. IBRAHIMA NELSON,CASE MANAGEMENT Ibrahima Nelson DCP- Discharge Planning Updated by [id number]: Ibrahima Nelson on 03/24/19 3:[address] Patient Name: MANA SAXENA Encounter No: [id number] : 1940 Primary Insurance: AETNA MEDICARE PPO or HMO Anticipated DC Date: 03-22-2019 Planned Disposition: Nursing Facility [facility] Cert External Planned Provider:[facility], MEDICARE REHAB BED DCP follow-up note: CM RECEIVED CALL FROM QUEEN ODESSA, PT'S SPOUSE, WHO HAS CALLED INSURANCE AND ASKED FOR EXPEDITED SERVICE ON AUTHORIZATION. CM FAXED UPDATE TO PUJA OF [facility], WITH UPDATED BLOOD CULTURE RESULT OF NEGATIVE ON DAY FIVE TO [facility] . CM RECEIVED CALL FROM [facility] WHO REQUESTED UPDATE, CM FAXED REQUEST TO ANTHONY AT [phone]. PT'S SPOUSE REFUSING MEDICAL TERMINOLOGIST CARE AND INSISTING ON SKILLED NUSING REHAB. [facility] NOW WANTS NEW BLOOD CULTURE RESULT SHOWING NO INFECTION. CM WAITING INSURANCE FOR AUTHORIZATION. OF REHAB SERVICES AT [facility]. IBRAHIMA NELSON,CASE MANAGEMENT Appended by Ibrahima Nelson on 03/24/2019 16:39 CDT: CM RECEIVED CALL FROM [facility]JA WHO INFORMED CM THAT PT'S REQUEST FOR [facility] AUTHORIZATION IS GOING FOR REVIEW BEFORE THE INSURANCE MANAGER CREDIT COLLECTIONS. PT'S SPOUSE REFUSING LONGTERM CARE AND INSISTING ON SKILLED NUSING REHAB. [facility]. CM WAITING INSURANCE FOR AUTHORIZATION. OF REHAB SERVICES AT [facility]. FATOUMATA ALVARENGA DCP- Discharge Planning Updated by [id number]: Ibrahima Nelson on 03/23/19 10:[address] Patient Name: MANA SAXENA Encounter No: [id number] : 1940 Primary Insurance: AETNA MEDICARE PPO or HMO Anticipated DC Date: 03-22-2019 Planned Disposition: Nursing Facility [facility] Cert External Planned Provider: [facility], MEDICARE REHAB BED DCP follow-up note: CM FAXED UPDATE TO [facility], WITH UPDATED BLOOD CULTURE RESULT OF NEGATIVE ON DAY FOUR TO [facility] VIA [facility] AT [phone]. PT'S SPOUSE REFUSING LONGTERM CARE AND INSISTING ON SKILLED NUSING REHAB. [facility] NOW WANTS NEW BLOOD CULTURE RESULT SHOWING NO INFECTION. CM WAITING INSURANCE FOR AUTHORIZATION. OF REHAB SERVICES AT [facility]. FATOUMATA ALVARENGA DCP- Discharge Planning Updated by [id number]: Ibrahima Nelson on 03/19/19 4:[address] Patient Name: MANA SAXENA Encounter No: [id number] : 1940 Primary Insurance: AETNA MEDICARE PPO or HMO Anticipated DC Date: 03-22-2019 Planned Disposition: Nursing Facility [facility] Cert External Planned Provider: [facility], MEDICARE REHAB BED DCP follow-up note: CM [facility], . PT'S SPOUSE REFUSING LONGTERM CARE AND INSISTING ON SKILLED NUSING REHAB. [facility] NOW WANTS NEW BLOOD CULTURE RESULT SHOWING NO INFECTION PRIOR TO SENDING TO INSURANCE FOR AUTHORIZATION. CM WAITING BLOOD CULTURE RESULT. IBRAHIMA NELSONCASE MANAGEMENT Appended by Ibrahima Nelson on 03/19/2019 17:40 CDT: CM FAXED PRELIMINARY BLOOD CULTURE RESULT OF NEGATIVE ON DAY ONE TO [facility] VIA [facility] AT [phone]. PT'S SPOUSE REFUSING MEDICAL TERMINOLOGIST CARE AND INSISTING ON SKILLED NUSING REHAB. [facility] NOW WANTS NEW BLOOD CULTURE RESULT SHOWING NO INFECTION PRIOR TO SENDING TO INSURANCE FOR AUTHORIZATION. CM WAITING FINAL BLOOD CULTURE RESULT. FATOUMATA ALVARENGA DCP- Discharge Planning Updated by [id number]: Ibrahima Nelson on 03/18/19 10:[address] Patient Name: MANA SAXENA Encounter No: [id number] : 1940 Primary Insurance: AETNA MEDICARE PPO or HMO Anticipated DC Date: 03-22-2019 Planned Disposition: Nursing Facility [facility] Cert External Planned Provider: [facility], MEDICARE REHAB BED DCP follow-up note: CM FAXED UPDATE TO [facility], . CM RECEIVED MESSAGE FROM [facility] WHO INFORMED CM THAT [facility] PLANS TO ACCEPT BUT WILL NOT SEND FOR INSURANCE AUTHORIZATION OR MAKE FINAL ADMISSION DETERMINATION UNTIL NEW BLOOD CULTURE IS DONE TO SHOW PT IS CLEAR OF INFECTION. CM NOTIFIED BOWEN TEJADA. CM MET WITH PT AND FAMILY, DISCUSSED ABOVE. PT'S SPOUSE REFUSING MEDICAL TERMINOLOGIST CARE AND INSISTING ON SKILLED NUSING REHAB. [facility] NOW WANTS NEW BLOOD CULTURE RESULT SHOWING NO INFECTION PRIOR TO SENDING TO INSURANCE FOR AUTHORIZATION. CM WAITING BLOOD CULTURE RESULT. IBRAHIMA NELSON,CASE MANAGEMENT DCP- Discharge Planning Updated by [id number]: Ibrahima Nelson on 03/17/19 7:[address] Patient Name: MANA SAXENA Encounter No: [id number] : 1940 Primary Insurance: AETNA MEDICARE PPO or HMO Anticipated DC Date: 03-15-2019 Planned Disposition: Nursing Facility [facility] Cert External Planned Provider: [facility], MEDICARE REHAB BED DCP follow-up note: CM FAXED UPDATE TO [facility], . PT'S SPOUSE REFUSING LONGTERM CARE AND INSISTING ON SKILLED NUSING REHAB WHICH REQUIRES PT TO PARTICIPATE IN THERAPY SERVICES. HOPEFULLY WILL HAVE ENOUGH PARTICIPATION TO SECURE INSURANCE AUTHORIZATION FOR REHAB PLACEMENT AT [facility]. IBRAHIMA NELSON,CASE MANAGEMENT DCP- Discharge Planning Updated by [id number]: Ibrahima Nelson on 03/16/19 3:[address] Patient Name: MANA SAXENA Encounter No: [id number] : 1940 Primary Insurance: AETNA MEDICARE PPO or HMO Anticipated DC Date: 03-15-2019 Planned Disposition: Nursing Facility [facility] Cert External Planned Provider: [facility], LONG TERM CARE MEDICAID BED DCP follow-up note: CM FAXED UPDATE TO [facility], . PT'S SPOUSE REFUSING MEDICAL TERMINOLOGIST CARE AND INSISTING ON SKILLED NUSING REHAB WHICH REQUIRES PT TO PARTICIPATE IN THERAPY SERVICES. CM TO SEND THERAPY UPDATE TOMORROW, HOPEFULLY WILL HAVE ENOUGH PARTICIPATION TO SECURE REHAB PLACEMENT AT [facility]. IBRAHIMA NELSON,CASE MANAGEMENT DCP- Discharge Planning Updated by [id number]: Ibrahima Nelson on 03/15/19 1:[address] Patient Name: MANA SAXENA Encounter No: [id number] : 1940 Primary Insurance: AETNA MEDICARE PPO or HMO Anticipated DC Date: 03-15-2019 Planned Disposition: Nursing Facility [facility] Cert External Planned Provider: [facility], LONG TERM CARE MEDICAID BED DCP follow-up note: CM RECEIVED MESSAGE FROM [facility], PT'S INSURANCE WILL NOT APPROVE REHAB SERVICES PT HAS BEEN REFUSING THERAPY. [facility] WILL ACCEPT FOR LONGTERM CARE IF PT'S FAMILY AGREES AND WILL WORK OUT FINANCIAL ARRANGEMENTS. HODA CALLED AND NOTIFIED QUEEN ODESSA AT [phone] WHO INFORMED CM THAT SHE IS NOT ABLE TO TAKE CARE OF PT AT HOME BY HERSELF AND WILL DISCUSS MEDICAL TERMINOLOGIST CARE ARRANGEMENTS WITH [facility]. HODA NOTIFIED PUJA OF [facility]. [facility] SALON SUPERVISOR CALLING PT'S NOW TO DISCUSS FINANCIAL ARRANGEMENTS FOR MEDICAL TERMINOLOGIST CARE PLACEMENT. CM WAITING FAMILY AND RETIREMENT TO WORK OUT FINANCIAL ARRANGEMENTS FOR MEDICAL TERMINOLOGIST CARE RETIREMENT PLACEMENT. Ibrahima Nelson, CASE MANAGEMENT Appended by Ibrahima Nelson on 03/15/2019 14:55 CDT: HODA RECEIVED CALL FROM ODESSA, , WHO STATED THAT SHE DID NOT KNOW THAT PT HAD TO PARTICIPATE WITH THERAPY FOR INSURANCE TO PAY FOR HIM TO GO TO REHAB. AWNG STATES THAT SHE IS COMING TO HOSPITAL THIS AFTERNOON TO SPEAK TO PT AND TELL HIM HE HAS TO PARTIPATE WITH THERAPY SO HE CAN GO TO REHAB AT [facility]. HODA EXPLAINED [facility], WANG STATES SHE DOES NOT WANT PT IN LONGTERM CARE AND WILL COME AND TELL PT TO PARTICIPATE IN THERAPY AT [facility] SO HE CAN GO TO REHAB AT [facility]. HODA NOTIFIED BOWEN TEJADA. CM WAITING ON PT'S SPOUSE TO SPEAK TO HIM IN THE ROOM REGARDING PARTICIPATING WITH HOSPITAL THERAPY SO INSURANCE WILL PAY FOR SKILLED REHAB; PT'S SPOUSE REFUSING LONGTERM CARE AND INSISTING ON SKILLED NUSING REHAB WHICH REQUIRES PT TO PARTICIPATE IN THERAPY SERVICES. CM TO CONTINUE TO FOLLOW AND ASSIST. IBRAHIMA NELSONCASE MANAGEMENT DCP- Discharge Planning Updated by [id number]: Ibrahima Nelson on 03/15/19 6:[address] Patient Name: MANA SAXENA Encounter No: [id number] : 1940 Primary Insurance: AETNA MEDICARE PPO or HMO Anticipated DC Date: 02-24-2019 Planned Disposition: Penitentiary Facility External Planned Provider:[facility], MEDICARE REHAB BED DCP follow-up note: CM NOTIFIED [facility] THAT PT MAY DISCHARGE TO REHAB TODAY. CM FAXED UPDATE WITH THERAPY NOTES TO [facility]IA [facility] AT [phone]. CM WAITING ADMISSION DETERMINATION AND INSURANCE AUTHORIZATION FOR REHAB AT [facility]. Ibrahima Nelson CASE MANAGEMENT DCP- Discharge Planning Updated by [id number]: Ibrahima Nelson on 03/12/19 3:[address] Patient Name: MANA SAXENA Encounter No: [id number] : 1940 Primary Insurance: AETNA MEDICARE PPO or HMO Anticipated DC Date: 02-24-2019 Planned Disposition: Penitentiary Facility External Planned Provider: [facility], MEDICARE REHAB BED DCP follow-up note: CM RECEIVED CALL FROM [facility]; REFERRAL WAS RECEIVED, PT'S INSURANCE WILL PAY OUT OF NETWORK BENEFITS JUST THE SAME IN NETWORK TO [facility]. PT WILL NEED THERAPY NOTES WITH PATIENT PARTICIPATION TO GET INSURANCE AUTHORIZATION FOR REHAB. PT NEEDS THERAPY NOTES DOCUMENTING PATIENT PARTICIPATION FOR INSURANCE TO AUTHORIZE . CM WAITING ADMISSION DETERMINATION AND INSURANCE AUTHORIZATION FOR REHAB AT [facility]. Ibrahima Nelson CASE MANAGEMENT DCP- Discharge Planning Updated by [id number]: Ibrahima Nelson on 03/11/19 1:[address] Patient Name: MANA SAXENA Encounter No: [id number] : 1940 Primary Insurance: AETNA MEDICARE PPO or HMO Anticipated DC Date: 02-24-2019 Planned Disposition: Penitentiary Facility External Planned Provider: [facility], MEDICARE REHAB BED DCP follow-up note: CM RECEIVED CALL FROM [facility], THEY ARE OUT OF INSURANCE NETWORK AND CANNOT ACCEPT PT. CM SPOKE TO PT AND SPOUSE IN ROOM. REPORTS IT IS OK TO SEND REFERRAL TO [facility] AND IF THEY DON'T ACCEPT, ANY IN NETWORK FACILITY WILL HAVE TO DO, JUST NOT [facility] IN [place]. CHOICE LETTER COMPLETED. QUEEN ODESSA PROVIDED INSURANCE CUSTOMER SERVICES NUMBER OF AND WEBSITE ADDRESS "[email or web address]" FOR CM USE IF NEEDED. CM NOTIFIED PUJA OF [facility] OF REHAB REFERRAL, . CM FAXED REFERRAL TO [facility] VIA PU[facility] AT [phone]. CM WAITING ADMISSION DETERMINATION AND INSURANCE AUTHORIZATION FOR REHAB AT [facility]. FATOUMATA Alvarenga MANAGEMENT DCP- Discharge Planning Updated by [id number]: Ibrahima Nelson on 03/10/19 2:[address] Patient Name: MANA SAXENA Encounter No: [id number] : 1940 Primary Insurance: AETNA MEDICARE PPO or HMO Anticipated DC Date: 02-24-2019 Planned Disposition: [facility]itentiary Facility [facility] DCP follow-up note: CM FAXED UDPATE WITH OT EVALUATION TO [facility] AT [facility] AT [phone]. [facility] GET [facility]PROVAL FOR OUT OF NETWORK SKILLED REHAB BENEFITS. CM WAITING ADMISSION DETERMINATION FROM [facility] FOR REHAB. PT WILL NEED TO HAVE INSURANCE AUTHORIZATION FOR REHAB SERVICES. IBRAHIMA NELSON CASE MANAGEMENT Appended by Ibrahima Nelson on 03/10/2019 15:03 CDT: CM RECEIVED CALL FROM [facility] OF [facility], , WHO INFORMED CM THAT THEY ARE STILL TRYING TO CONNECT WITH PT'S INSURANCE COMPANY TO REQUEST AUTHORIZATION OF SERVICES. CM PROVIDED PT'S SOCIAL SECURITY NUMBER AND FAXED UDPATE TO [facility] AT [facility] AT [phone]. [facility] GET [facility]PROVAL FOR OUT OF NETWORK SKILLED REHAB BENEFITS. CM WAITING ADMISSION DETERMINATION FROM [facility] AND [facility] FOR REHAB. PT WILL NEED TO HAVE INSURANCE AUTHORIZATION FOR REHAB SERVICES. FATOUMATA ALVARENGA DCP- Discharge Planning Updated by [id number]: Ibrahima Nelson on 03/09/19 10:[address] Patient Name: MANA SAXENA Encounter No: [id number] : 1940 Primary Insurance: AETNA MEDICARE PPO or HMO Anticipated DC Date: 02-24-2019 Planned Disposition: Penitentiary Facility External Planned Provider:[facility], MEDICARE REHAB BED DCP follow-up note: CM REVIEWED CHART, OBTAINED ORDER FOR OCCUPATIONAL THERAPY EVALUATION. CM FAXED UPDATED REFERRAL TO [facility], . CM RECEIVED CALL FROM UBALDO OF [facility], , [facility] IS NOT IN NETWORK WITH PT'S INSURANCE AND THEY HAVE SUBMITTED TO INSURANCE TO SEE IF INSURANCE WILL COVER REHAB AT [facility]. CM WAITING ADMISSION DETERMINATION FROM [facility] FOR REHAB. PT WILL NEED TO HAVE INSURANCE AUTHORIZATION FOR REHAB SERVICES. IBRAHIMA NELSON CASE MANAGEMENT DCP- Discharge Planning Updated by [id number]: Ibrahima Nelson on 03/03/19 9:[address] Patient Name: MANA SAXENA Encounter No: [id number] : 1940 Primary Insurance: AETNA MEDICARE PPO or HMO Anticipated DC Date: 02-24-2019 Planned Disposition: Penitentiary Facility External Planned Provider: [facility], MEDICARE REHAB BED DCP follow-up note: CM RECEIVED CALL FROM [facility], UPDATE PROVIDED VIA PHONE; DOUGLAS CANCELLED REFERRAL AND INSTRUCTED CM TO SEND REFERRAL WHEN PT IS BETTER AND IF PT STILL NEEDS INPATIENT REHAB SERVICES. CM WAITING ADMISSION DETERMINATION FROM [facility] FOR REHAB OR LONGTERM CARE. PT WILL NEED TO HAVE INSURANCE AUTHORIZATION WHEN OCCUPATIONAL THERAPY EVALUATION HAS BEEN COMPLETED AND RECEIVED BY [facility]. IBRAHIMA NELSON CASE MANAGEMENT DCP- Discharge Planning Updated by [id number]: Ibrahima Nelson on 03/02/19 10:[address] Patient Name: MANA SAXENA Encounter No: [id number] : 1940 Primary Insurance: AETNA MEDICARE PPO or HMO Anticipated DC Date: 02-24-2019 Planned Disposition: Inpatient Rehab External Planned Provider: [facility] INPATIENT REHAB DCP follow-up note: CM RECEIVED CALL FROM IAN OF [facility], THEY HAVE ACCEPTED MEDICALLY AND WILL SUBMIT TO INSURANCE FOR AUTHORIZATION FOR INPATIENT REHAB SERVICES. CM ADVISED THAT PT HAD MOVED TO ICU THIS MORNING AND THAT PT HAS BEEN REFUSING THERAPY SERVICES AND FURTHER THAT OCCUPATIONAL THERAPY EVALUATION HAS NOT YET BEEN COMPLETED. IAN WILL FOLLOW UP WITH CALL TO PT'S TO DISCUSS COMPLIANCE WITH THERAPY SERVICES TO SEE IF THE SPOUSE CAN SPEAK TO PT. CM WAITING RETURN CALL FROM PT'S SPOUSE, QUEEN ODESSA. [facility] WILL SUBMIT TO PT'S INSURANCE COMPANY FOR INPATIENT REHAB AUTHORIZATION WHEN OCCUPATIONAL THERAPY EVALUATION HAS BEEN COMPLETED AND RECEIVED. CM WAITING ADMISSION DETERMINATION FROM [facility] OR REHAB OR LONGTERM CARE. PT WILL NEED TO HAVE INSURANCE AUTHORIZATION WHEN OCCUPATIONAL THERAPY EVALUATION HAS BEEN COMPLETED AND RECEIVED BY [facility]. IBRAHIMA NELSON CASE MANAGEMENT DCP- Discharge Planning Updated by [id number]: Ibrahima Nelson on 03/01/19 3:[address] Patient Name: MANA SAXENA Encounter No: [id number] : 1940 Primary Insurance: AETNA MEDICARE PPO or HMO Anticipated DC Date: 02-24-2019 Planned Disposition: Inpatient Rehab External Planned Provider: [facility] INPATIENT REHAB DCP follow-up note: HODA REVIEWED CHART, OCCUPATIONAL THERAPY EVALUATION HAS STILL NOT BEEN COMPLETED / DOCUMENTED. CM FAXED BASIC REFERRAL TO [facility] FOR INPATIENT REHAB CONSIDERATION AT [phone]. CM TO FAX UPDATE WITH OCCUPATIONAL THERAPY EVALUATION WHEN IT IS COMPLETED AND DOCUMENTED. Ibrahima Nelson CASE MANAGEMENT Appended by Ibrahima Nelson on 03/01/2019 16:14 CDT: HODA REVIEWED CHART, PT REFUSED PHYSICAL THERAPY TODAY AND THERAPY HAS SIGNED OFF DUE TO PT REFUSAL. OCCUPATIONAL THERAPY EVALUATION STILL NOT COMPLETED. IT IS CM'S EXPERIENCE THAT INSURANCE WILL NOT PAY FOR REHAB SERVICES UNLESS PT IS PARTICIPATING, WHICH THIS PT IS NOT. CM SPOKE TO PT IN ROOM WHO REPORTS HE DID NOT UNDERSTAND; PT STATES HE IS GOING HOME. WHEN CM EXPLAINED IN SLOW DETAIL THAT PT'S SPOUSE WANTS HIM TO GO TO REHAB, PT YELLS AT THAT SOMETHING MUST BE WRONG AND TO CALL WANG. CM CALLED QUEEN ODESSA, SPOUSE, , LEFT MESSAGE ASKING FOR RETURN CALL. CM FAXED REFERRAL TO [facility] IN [place] THAT THEY CAN GET AUTHORIZATION FOR REHAB WITH PT'S REFUSAL TO DO THERAPY OR AT LEAST CONSIDER FOR LONGTERM CARE. CM WAITING RETURN CALL FROM PT'S SPOUSE, QUEEN ODESSA. CM WAITING ADMISSION DETERMINATION FROM [facility] OR REHAB OR MEDICAL TERMINOLOGIST CARE. IBRAHIMA NELSON CASE MANAGEMENT DCP- Discharge Planning Updated by [id number]: Ibrahima Nelson on 02/26/19 12:[address] Patient Name: MANA SAXENA Encounter No: [id number] : 1940 Primary Insurance: AETNA MEDICARE PPO or HMO Anticipated DC Date: 02-24-2019 Planned Disposition: Inpatient Rehab External Planned Provider: [facility] INPATIENT REHAB DCP follow-up note: CM RECEIVED CALL FROM AYUSH OF [facility] PATIENT; SHE HAD CALLED PT'S SPOUSE TO ARRANGE DELIVERY OF MANUAL WHEELCHAIR AND SPOUSE REFUSED IT STATING THAT SHE CANNOT PHYSICALLY PUSH PT IN A WHEELCHAIR AND REQEUSTED A POWER CHAIR. CM ATTEMPTED TO SEE PT'S SPOUSE IN ROOM, SHE WAS NOT THERE. CM CALLED QUEEN ODESSA, . CM INFORMED THAT AN ELECTRIC WHEELCHAIR REQUIRES VERY DETAILED AND LENGHTY DOCUMENTATION THAT CANNOT BE DONE FROM HOSPITAL, REFERRED HER TO PT'S PRIMARY CARE DOCTOR. CM DISCUSSED AVAILABILITY OF REHAB SERVICES, PROVIDERS AND LOCATIONS. REPORTS SHE IS OLDER THAN PT AND IS HAVING TROUBLE CARING FOR PT IN HIS WEAKENED STATE AND WOULD LIKE REHAB AT [facility] FIRST CHOICE AND [facility] SECOND, [facility] THIRD BUT WILL NOT CONSIDER [facility] IN [place]. CHOICE LETTER COMPLETED. CHART REVIEWED, PHYSICAL THERAPY EVALUATION STILL PENDING, NO OCCUPATIONAL THERAPY HAD BEEN ORDERED. CM OBTAINED ORDER FOR OCCUPATIONAL THERAPY EVALUATION. CM TO PROVIDE REFERRAL TO [facility] FOR INPATIENT REHAB CONSIDERATION ONCE PHYSICAL AND OCCUPATIONAL THERAPY EVALUATIONS ARE COMPLETED. FATOUMATA Alvarenga DCP- Discharge Planning Updated by [id number]: Ibrahima Nelson on 02/23/19 3:[address] Patient Name: MANA SAXENA Admission Status: ER Accout number: [id number] Admission Date: 02-22-2019 : 1940 Admission Diagnosis: Attending: CASEY NAIDU Current LOS: 1 Anticipated DC Date: 02-24-2019 Planned Disposition: Home with Home Health Primary Insurance: UNINSURED DISCOUNT PLAN PLANNED EXTERNAL PROVIDER: [facility] Discharge Planning Comments: CM RECEIVED ORDER FOR HOME HEALTH. CM MET WITH PT AND SPOUSE IN ROOM TO DISCUSS DISCHARGE PLANNING AND NEEDS. MANA SAXENA provided verbal consent to discuss current and ongoing needs with/in the presence of: SPOUSEQUEEN. ANSWERED ALL QUESTIONS. PT LIVING AT HOME DEPENDENTLY WITH SPOUSE WHO ASSISTS WITH MEDICATIONS. PT HAS BEEN GETTING WEAKER AND NOW NEEDS ASSISTANCE WITH BATHING. PT HAS WALKER WITH WHEELS, SEAT AND BRAKES AND NO MEDICAL EQUIPMENT PROVIDER PREFERENCE. PT HAS HOME HEALTH WITH [facility] FOR NURSING AND PHYSICAL THERAPY. CM DISCUSSED AVAILABILITY OF HOME HEALTH, REHAB SERVICES AND MEDICAL EQUIPMENT. PT'S SPOUSE WANTS [facility] RESUMPTION AND REPORTS NEEDING A WHEELCHAIR PT IS NO LONGER ABLE TO CLIMB THE STEPS TO GET ON THE MEDICAID BUS FOR DIALYSIS TRANSPORTATION. PT GOES TO DIALYSIS IN [place] ON MWF SCHEDULE. PT'S FAMILY TO TRANSPORT HOME AT DISCHARGE. CHOICE SIGNED FOR [facility], CHOICE FOR NO PREFERENCE FOR MEDICAL EQUIPMENT PROVIDER COMPLETED BY CM. CM COLLECTED REGISTRATION INFORMATION AND FORWARDED TO [place] OF REGISTRATION. CM SPOKE TO BOWEN TEJADA WHO PROVIDED ORDER FOR WHEELCHAIR. CM CALLED [facility] PATIENT, , SPOKE TO AYUSH AND PROVIDED REFERRAL INFORMATION FOR WHEELCHAIR. CM FAXED ORDER AND CHART INFORMATION TO [facility] PATIENT AT [phone]. [facility] PATIENT TO PROCESS ORDER FOR WHEELCHAIR DELIVERY TO PT IF QUALIFIES; PT'S INSURANCE REQUIRES PRIOR AUTHORIZATION. CM CALLED [facility], , SPOKE TO KURT, PROVIDED REFERRAL INFORMATION, PT IS ON SERVICES WITH [facility] ALREADY.. CM FAXED REFERRAL INFORMATION TO [facility], . FOR DISCHARGE, NOTIFY [facility] AT [phone]; FAX DISCHARGE INFORMATION TO [facility] AT [phone]. Groundhand: Ibrahima Nelson DCPIA - Discharge Planning Initial Assessment Updated by [email or web address]: Ibrahima Nelson on 02/23/19 3:52 pm * Is the patient Alert and Oriented? Yes * How many steps to enter\\exit or inside your home? RAMP * PCP DR. VIC PAREDES IN [place] * Pharmacy [facility] [place] * Preadmission Environment Home with Family * ADLs Partial Dependent * Partial ADLs (Assistance needed) Bathing Medication Management * Equipment Rolling Walker * Other Equipment ROLLING WALKER WITH SEAT AND BRAKES NO MEDICAL EQUIPMENT PROVIDER PREFERENCE * List name and contact numbers for known caregivers / representatives who currently or will assist patient after discharge: QUEEN ODESSA, SPOUSE, IDRIS SAXENA, NIECE, * Verbal permission to speak to the caregivers and representatives has been obtained from the patient. Yes * Community resources currently utilized Home Health * Please name any agencies selected above. [facility] NURSING [facility]YSICAL THERAP[facility] * Additional services required to return to the preadmission environment? No * Can the patient safely return to the preadmission environment? Yes * Has this patient been hospitalized within the prior 30 days at any hospital? Yes Coverage Notice Reviewer: AMELIA Nelson Notice Issued Date-Time: 02/23/2019 15:15 Notice Type: Patient Choice Letter Notice Delivered To: Family Member Relationship to Patient: Spouse Welfare Aide Name: QUEEN ODESSA Delivery Method: HAND - Hand Delivered Cristina Days: Prior Verbal Notification: Recipient Understood Notice: Yes Recipient Signature: Yes Med Rec Note Co-signed by Attending: Coverage Notice Comment: ANY MEDICAL EQUIPMENT [employer] SERVICING [place] // [facility] Reviewer: AMELIA Nelson Notice Issued Date-Time: 02/26/2019 12:00 Notice Type: Patient Choice Letter Notice Delivered To: Family Member Relationship to Patient: Spouse Welfare Aide Name: QUEEN ODESSA Delivery Method: PHONE - Phone Cristina Days: Prior Verbal Notification: Recipient Understood Notice: Yes Recipient Signature: Med Rec Note Co-signed by Attending: Coverage Notice Comment: [facility]- [facility] 3-[facility]!! Reviewer: AMELIA Nelson Notice Issued Date-Time: 03/11/2019 15:50 Notice Type: Patient Choice Letter Notice Delivered To: Family Member Relationship to Patient: Spouse Welfare Aide Name: QUEEN ODESSA Delivery Method: HAND - Hand Delivered Cristina Days: Prior Verbal Notification: Recipient Understood Notice: Yes Recipient Signature: Med Rec Note Co-signed by Attending: Coverage Notice Comment: [facility] OR [facility] Reviewer: AMELIA Nelson Notice Issued Date-Time: 03/25/2019 8:45 Notice Type: IM Discharge Notice Notice Delivered To: Patient Relationship to Patient: Welfare Aide Name: Delivery Method: HAND - Hand Delivered Cristina Days: Prior Verbal Notification: Recipient Understood Notice: Yes Recipient Signature: Yes Med Rec Note Co-signed by Attending: Coverage Notice Comment: Last DP export: 03/25/19 12:00 p Patient Name: MANA SAXENA Page [phone] at 1428 All edits/amendments must be made on the electronic document DICTATION DATE: 03/25/191426 IUSS ACOUSTIC ANALYST: GRACE 03/25/191426 RPT#: [id number] DC DATE: STATUS: ADM IN [facility] [address] [place] [address] END OF REPORT
--- NOTE | 2019-03-25 15:18 | NUR ---
PATIENT REQUESTED AND RECEIVED HIS HAM SANDWICH AND 2 MILKS TO GO WITH IT. WONDERING WHAT WAS TAKING SO LONG WITH HIM GETTING PICKED UP TO GO TO [employer]. CL IN REACH WCTM
--- NOTE | 2019-03-25 16:08 | NUR ---
TRANSPORT ARRIVED TO PICK HIM UP AND TAKE HIM TO [facility]
== END 2019-03-25 16:09 | DRG 987 ==
LOC: D.ER 16:51 → D.M2 21:34 → OBSVTIME 21:34 → D.M2 21:34 → D.EDHOLD 21:34 → D.M2 22:02 → D.ICU 02-24 09:48 → D.M2 02-24 09:48 → D.ICU 03-02 09:12 → D.M2 03-08 15:16 → D.ICU 03-11 22:36 → D.M2 03-13 18:44
PROVIDERS: Family Medicine; Internal Medicine; Internal Medicine Gastroenterology; Internal Medicine Nephrology; Internal Medicine Pulmonary Disease; Specialist; ADMIT Internal Medicine Nephrology; ATTEND Internal Medicine Nephrology
PROC: 04L53DZ Occlusion of Superior Mesenteric Artery with Intraluminal Device, Percutaneous Approach (ICD-10-PCS; 2019-03-02)
PROC: 0DJ08ZZ Inspection of Upper Intestinal Tract, Via Natural or Artificial Opening Endoscopic (ICD-10-PCS; 2019-03-02)
PROC: 5A1945Z Respiratory Ventilation, 24-96 Consecutive Hours (ICD-10-PCS; 2019-03-02)
PROC: 0BH17EZ Insertion of Endotracheal Airway into Trachea, Via Natural or Artificial Opening (ICD-10-PCS; 2019-03-02)
PROC: 06HY33Z Insertion of Infusion Device into Lower Vein, Percutaneous Approach (ICD-10-PCS; principal; 2019-03-02 15:00)
PROC: 0DB78ZX Excision of Stomach, Pylorus, Via Natural or Artificial Opening Endoscopic, Diagnostic (ICD-10-PCS; 2019-03-04)
DX: K72.90 Hepatic failure, unspecified without coma (principal); N18.6 End stage renal disease; G93.41 Metabolic encephalopathy; J96.90 Respiratory failure, unspecified, unspecified whether with hypoxia or hypercapnia; K29.01 Acute gastritis with bleeding; I12.0 Hypertensive chronic kidney disease with stage 5 chronic kidney disease or end stage renal disease; J90 Pleural effusion, not elsewhere classified; D62 Acute posthemorrhagic anemia; J98.11 Atelectasis; R78.81 Bacteremia; E11.22 Type 2 diabetes mellitus with diabetic chronic kidney disease; Z99.2 Dependence on renal dialysis; D50.9 Iron deficiency anemia, unspecified; R63.0 Anorexia; J44.9 Chronic obstructive pulmonary disease, unspecified; R53.81 Other malaise; D69.6 Thrombocytopenia, unspecified; R74.8 Abnormal levels of other serum enzymes; E87.6 Hypokalemia; R53.1 Weakness; R21 Rash and other nonspecific skin eruption; I95.9 Hypotension, unspecified

== ENCOUNTER 2019-04-11 10:34 | Inpatient (IN) | payer MEDICARE ==
[~2019-04-11] VITALS: Ht 180.3 cm; Wt 68.0 kg
[~2019-04-11 10:34] MED LIST: BAYER CHEWABLE81 MG PO; BUSPAR5 MG PO; CARAFATE1 G PO; CHRONULAC30 ML PO; COREG 3.1253.125 MG PO; COZAAR25 MG PO; HUMALOG 30100 UNITS/ SQ; LANTUS INSULIN10 ML SC; LASIX40 MG PO; LIPITOR80 MG PO; MIDODRINE HCL5 MG PO; MIRALAX17 GM PO; PROTONIX40 MG PO; RENVELA800 MG PO; SYMBICORT 16010.2 GM INH
[2019-04-11 11:05] LABS: BASOPHILS 0.2 % (0-2); EOSINOPHILS 0.4 % (0-7); HEMATOCRIT 33.9 % (42.0-54.0); IMMATURE GRANULOCYTES 0.5 % (0-5); LYMPHOCYTES 8.4 % (15-50); MCH 30.5 pg (26.0-34.0); MCHC 32.4 g/dL (31.0-37.0); MCV 93.9 fL (80.0-100.0); MEAN PLATELET VOLUME 10.5 fL (7.4-10.4); MONOCYTES 12.3 % (2-11); NEUTROPHILS 78.2 % (40-80); RBC 3.61 10x6/uL (4.20-6.10); RDW 20.3 % (11.5-14.5); WBC 13.4 10x3/uL (4.8-10.8)
--- NOTE | 2019-04-11 11:05 | NUR ---
RADIOLOGY AT BEDSIDE.
[2019-04-11 11:06] LABS: PLATELET COUNT 237 10x3/uL (130-400)
--- NOTE | 2019-04-11 11:21 | NUR ---
pt sitting up in bed talking with at bedside.
[2019-04-11 11:52] LABS: ALBUMIN 1.9 g/dL (3.4-5.0); ALKALINE PHOSPHATASE 103 U/L (46-116); ALT (SGPT) 9 U/L (10-68); BILIRUBIN - TOTAL 0.51 mg/dL (0.2-1.3); CALC OSMOLALITY 276 mosm/kg (275-300); CALCIUM 8.3 mg/dL (8.5-10.1); CARBON DIOXIDE 23.7 mmol/L (21.0-32.0); CHLORIDE - SERUM 101 mmol/L (98-107); CKMB 0.6 U/L (0.0-3.6); CREATINE KINASE 28 UL (21-232); CREATININE - SERUM 5.2 mg/dL (0.6-1.3); GLUCOSE 120 mg/dL (74-106); PROTEIN - SERUM 5.9 g/dL (6.4-8.2); SODIUM 136 mmol/L (136-145); TROPONIN-I 0.034 ng/mL (0.000-0.060); UREA NITROGEN 23 mg/dL (7-18); eGFR NON AFRICAN AMERICAN 11 mL/min (90-120)
[2019-04-11 11:53] LABS: POTASSIUM - SERUM 2.4 mmol/L (3.5-5.1); PRO BNP 34207 pg/mL (0-450)
--- NOTE | 2019-04-11 11:59 | NUR ---
PT HAD INCONTINENT BM. RICH CARE PROVIDED AND PT'S ADULT BRIEF CHANGED AT THIS TIME. BLANCHABLE REDNESS AND SORENESS NOTED TO PT'S SACRUM.
[2019-04-11 12:00] VITALS: BP 138/66
--- NOTE | 2019-04-11 12:23 | NUR ---
LUNCH TRAY ORDERED FOR PATIENT.
--- NOTE | 2019-04-11 13:35 | NUR ---
RECEIVED PT TO ROOM 2126 VIA STRETCHER, TRANSFERED PT TO BED X2 ASSIST. PT A/O X4, BUT REALLY HARD OF HEARING. ORIENTED PT TO ROOM AND CALL LIGHT, CLEANED PT UP FROM INCONT EPISODE. WILL ASSESS PT AND START PLAN OF CARE.
[2019-04-11 14:29] VITALS: BP 130/62
[2019-04-11] MEDS ORDERED: FLAGYL500 MG PO (14:41)
[2019-04-11] MEDS ORDERED: OMNICEF300 MG PO (14:41)
[2019-04-11] MEDS ORDERED: ACIDOPHILUS-PE1 EACH PO (14:42)
[2019-04-11 16:59] VITALS: BP 128/65
--- NOTE | 2019-04-11 17:13 | MORECARE ---
CASE MANAGEMENT DISCHARGE SUMMARY PATIENT: MANA SAXENA UNIT: [id number] ADM DATE: 04/11/19 AGE: 78 : 38 SEX: M ROOM/BED: D.2127 AUTHOR: JORGE LORENZO PHYSICIAN: REFERRING PHYSICIAN: CANDIDO WELLS DO DATE OF SERVICE: 04/11/19 Discharge Plan Patient Name: MANA SAXENA Facility: [facility]:[place] : 1940 Planned Disposition: Anticipated Discharge Date: Discharge Date: Expected LOS: Initial Reviewer: [id number] Initial Review Date: 04/11/2019 Generated: 04/11/19 6:13 pm Patient Name: MANA SAXENA Page [phone] at 1713 All edits/amendments must be made on the electronic document DICTATION DATE: 04/11/191711 FAMILY CENTERED SPECIALIST: GRACE 04/11/191711 RPT#: [id number] DC DATE: STATUS: ADM IN [facility] [address] [place] [address] END OF REPORT
--- NOTE | 2019-04-11 19:45 | NUR ---
RECEIVED REPORT, WILL ASSUME CARE OF PT, SLEEPING, NO DISTRESS NOTICED , BED IS LOW, SRX2, CALL LIGHT IN REACH, WILL CONTINUE PLAN OF CARE, BED ALARM IS ON
[2019-04-11 20:00] VITALS: BP 131/61
[2019-04-12] VITALS: BP 116/68
--- NOTE | 2019-04-12 03:58 | NUR ---
I have reviewed this patient and I concur with the Shift Assessment completed by the Licensed Practical Nurse today this shift.
[2019-04-12 04:00] VITALS: BP 122/39
[2019-04-12 05:14] LABS: BASOPHILS 0.1 % (0-2); EOSINOPHILS 0.5 % (0-7); HEMATOCRIT 36.2 % (42.0-54.0); HEMOGLOBIN 11.6 g/dL (13.5-17.5); IMMATURE GRANULOCYTES 0.7 % (0-5); LYMPHOCYTES 10.5 % (15-50); MCH 30.5 pg (26.0-34.0); MCV 95.3 fL (80.0-100.0); MEAN PLATELET VOLUME 10.4 fL (7.4-10.4); MONOCYTES 14.4 % (2-11); NEUTROPHILS 73.8 % (40-80); PLATELET COUNT 250 10x3/uL (130-400)
[2019-04-12 05:17] LABS: ANION GAP 15.5 mmol/L (8-16); CALCIUM 8.3 mg/dL (8.5-10.1); CARBON DIOXIDE 22.1 mmol/L (21.0-32.0); CREATININE - SERUM 5.8 mg/dL (0.6-1.3); MAGNESIUM - SERUM 1.7 mg/dL (1.8-2.4); PHOSPHOROUS 1.7 mg/dL (2.5-4.9)
[2019-04-12 05:18] LABS: WBC 8.6 10x3/uL (4.8-10.8)
[2019-04-12 05:20] LABS: POTASSIUM - SERUM 3.6 mmol/L (3.5-5.1)
[2019-04-12 08:00] VITALS: BP 159/77
--- NOTE | 2019-04-12 08:20 | NUR ---
PT IN BED, EYES CLOSED, RESTING. RESPIRATIONS EVEN AND UNLABORED. STATED HE WANTED TO WAIT FOR AM MEDS UNTIL HE RECIEVED BREAKFAST. WILL ASSESS PT AND CONTINUE PLAN OF CARE.
--- NOTE | 2019-04-12 09:49 | NUR ---
PT AGREED TO TAKE PO MEDICATIONS BUT REFUSED POWER FORM MEDICATIONS AND RENIGEL. STATED HE DID NOT GET TO SLEEP MUCH LAST NIGHT AND WANTED TO GO BACK TO BED.
--- NOTE | 2019-04-12 10:59 | NUR ---
PT CLEANED AFTER INCONTINENT BM. STOOL IS BLACK AND STICKY IN CONSISTANCY. RICH CARE PROVIDED. ADULT BRIEF AND BED PAD CHANGED. BLANCHABLE REDNESS NOTED TO LEFT SIDE OF BUTTOCK. PROTECTIVE CREAM APPLIED TO AREA.
[2019-04-12 12:12] VITALS: BP 125/67
--- NOTE | 2019-04-12 12:30 | NUR ---
[facility] CALLED TO CHECK ON PT.
[2019-04-12 12:39] VITALS: Ht 180.3 cm; Wt 68.0 kg
--- NOTE | 2019-04-12 15:07 | NUR ---
I have reviewed this patient and I concur with the Shift Assessment completed by the Licensed Practical Nurse today this shift.
--- NOTE | 2019-04-12 15:27 | NUR ---
FAMILY AT BEDSIDE
[2019-04-12 16:24] VITALS: BP 119/66
--- NOTE | 2019-04-12 17:04 | MORECARE ---
CASE MANAGEMENT DISCHARGE SUMMARY PATIENT: MANA SAXENA UNIT: [id number] ADM DATE: 04/11/19 AGE: 78 : 38 SEX: M ROOM/BED: D.2127 AUTHOR: BJDOC PHYSICIAN: REFERRING PHYSICIAN: CANDIDO WELLS DO DATE OF SERVICE: 04/12/19 Discharge Plan Patient Name: MANA SAXENA Facility: [facility]:[place] : 1940 Planned Disposition: Fdc Facility Anticipated Discharge Date: Discharge Date: Expected LOS: Initial Reviewer: [id number] Initial Review Date: 04/11/2019 Generated: 04/12/19 6:04 pm DCPIA - Discharge Planning Initial Assessment Updated by AMELIA: Freddy Salazar on 04/12/19 5:04 pm * Is the patient Alert and Oriented? Yes * How many steps to enter\exit or inside your home? RAMP * PCP DR. VIC PAREDES , [place] * Pharmacy [facility] * Preadmission Environment Fdc Facility * Facility Name [facility] * ADLs Partial Dependent * Partial ADLs (Assistance needed) Ambulation Bathing Medication Management Transfers * Equipment Rolling Walker * Other Equipment ROLLING WALKER WITH SEAT AND BRAKES NO MEDICAL EQUIPMENT PROVIDER PREFERENCE * List name and contact numbers for known caregivers / representatives who currently or will assist patient after discharge: KATY THOMSON, * Verbal permission to speak to the caregivers and representatives has been obtained from the patient. Yes * Community resources currently utilized Other * Please name any agencies selected above. [facility], [facility], NURSING FACILITY TRANSPORT * Additional services required to return to the preadmission environment? No * Can the patient safely return to the preadmission environment? Yes * Has this patient been hospitalized within the prior 30 days at any hospital? Yes Coverage Notice Reviewer: [id number] - Freddy Salazar Notice Issued Date-Time: 04/12/2019 15:30 Notice Type: Patient Choice Letter Notice Delivered To: Family Member Relationship to Patient: Spouse Compass Operator Name: QUEEN ODESSA Delivery Method: HAND - Hand Delivered Cristina Days: Prior Verbal Notification: Recipient Understood Notice: Yes Recipient Signature: Yes Med Rec Note Co-signed by Attending: Coverage Notice Comment: [facility] RETURN Last DP export: 04/11/19 4:13 p Patient Name: MANA SAXENA Page [phone] at 1704 All edits/amendments must be made on the electronic document DICTATION DATE: 04/12/191702 DRONE PILOT: GRACE 04/12/191702 RPT#: [id number] DC DATE: STATUS: ADM IN [facility] [address] [place] [address] END OF REPORT
--- NOTE | 2019-04-12 17:16 | MORECARE ---
CASE MANAGEMENT DISCHARGE SUMMARY PATIENT: MANA SAXENA UNIT: [id number] ADM DATE: 04/11/19 AGE: 78 : 38 SEX: M ROOM/BED: D.1314 AUTHOR: BJ,DOC PHYSICIAN: REFERRING PHYSICIAN: CANDIDO WELLS DO DATE OF SERVICE: 04/12/19 Discharge Plan Patient Name: MANA SAXENA Facility: [facility]:[place] : 1940 Planned Disposition: Group Home Facility Anticipated Discharge Date: Discharge Date: Expected LOS: Initial Reviewer: [id number] Initial Review Date: 04/11/2019 Generated: 04/12/19 6:15 pm Comments DCP- Discharge Planning Updated by [email or web address]: Freddy Salazar on 04/12/19 4:[address] Patient Name: MANA SAXENA Encounter No: [id number] : 1940 Primary Insurance: AETNA MEDICARE PPO or HMO Anticipated DC Date: Planned Disposition: Group Home Facility External Planned Provider: [facility], MEDICARE REHAB BED DCP follow-up note: CM MET WITH PT AND SPOUSE IN ROOM TO DISCUSS DISCHARGE PLANNING AND NEEDS.MANA SAXENA provided verbal consent to discuss current and ongoing needs with/in the presence of: SPOUSE, . PT REPORTS LIVING AT HOME INDEPENDENTLY WITH HIS PRIOR TO REHAB AT [facility]. PT HAS ROLLING WALKER WITH SEAT AND BRAKES WITH NO MEDICAL EQUIPMENT PROVIDER PREFERENCE. PT HAS NO OUTSIDE SERVICES ASSISTING IN THE HOME. CM DISCUSSED AVAILABILITY OF HOME HEALTH, REHAB SERVICES AND MEDICAL EQUIPMENT. PT WILL RETURN TO [facility] TO FINISH REHAB BEFORE RETURNING HOME. PT IS TRANSPORTED TO AND FROM [facility] ON F SCHEDULE BY REHAB VAN. CHOICE COMPLETED AND SIGNED FOR [facility] SKILLED REHAB RETURN. FOR DISCHARGE, FAX DISCHARGE INFORMATION TO [facility] AT [phone]. NURSE REPORT TO BE CALLED TO [facility] AT [phone]. [facility] TO ARRANGE VAN TRANSPORTATION. FATOUMATA Alvarenga MANAGEMENT DCPIA - Discharge Planning Initial Assessment Updated by [id number]: Freddy Salazar on 04/12/19 5:04 pm * Is the patient Alert and Oriented? Yes * How many steps to enter\exit or inside your home? RAMP * PCP DR. VIC PAREDES , [place] * Pharmacy [facility] * Preadmission Environment Group Home Facility * Facility Name [facility] [place] * ADLs Partial Dependent * Partial ADLs (Assistance needed) Ambulation Bathing Medication Management Transfers * Equipment Rolling Walker * Other Equipment ROLLING WALKER WITH SEAT AND BRAKES NO MEDICAL EQUIPMENT PROVIDER PREFERENCE * List name and contact numbers for known caregivers / representatives who currently or will assist patient after discharge: QUEEN ODESSA, SPOUSE, * Verbal permission to speak to the caregivers and representatives has been obtained from the patient. Yes * Community resources currently utilized Other * Please name any agencies selected above. [facility], M[facility], NURSING FACILITY TRANSPORT * Additional services required to return to the preadmission environment? No * Can the patient safely return to the preadmission environment? Yes * Has this patient been hospitalized within the prior 30 days at any hospital? Yes Coverage Notice Reviewer: [id number] Edilia Salazar Notice Issued Date-Time: 04/12/2019 15:30 Notice Type: Patient Choice Letter Notice Delivered To: Family Member Relationship to Patient: Spouse Hotel Superintendent Name: QUEEN ODESSA Delivery Method: HAND - Hand Delivered Cristina Days: Prior Verbal Notification: Recipient Understood Notice: Yes Recipient Signature: Yes Med Rec Note Co-signed by Attending: Coverage Notice Comment: [facility] RETURN Last DP export: 04/12/19 4:04 p Patient Name: MANA SAXENA Page [id number] at 1716 All edits/amendments must be made on the electronic document DICTATION DATE: 04/12/191714 OFFSET PRESS OPERATOR: GRACE 04/12/191714 RPT#: [id number] DC DATE: STATUS: ADM IN [address] [place] [address] END OF REPORT
[2019-04-12 20:00] VITALS: BP 126/70
--- NOTE | 2019-04-13 04:19 | NUR ---
I have reviewed this patient and I concur with the Shift Assessment completed by the Licensed Practical Nurse today this shift.
--- NOTE | 2019-04-13 07:00 | NUR ---
ASSESSMENT DONE. NO SIGN OF DISTRESS NOTED. RESPIRATIONS EVEN AND UNLABORED. RSTING IN BED EYES CLOSED.
[2019-04-13 07:18] LABS: BASOPHILS 0.1 % (0-2); EOSINOPHILS 0.3 % (0-7); HEMATOCRIT 32.1 % (42.0-54.0); HEMOGLOBIN 10.1 g/dL (13.5-17.5); IMMATURE GRANULOCYTES 0.4 % (0-5); LYMPHOCYTES 11.9 % (15-50); MCH 29.9 pg (26.0-34.0); MCHC 31.5 g/dL (31.0-37.0); MEAN PLATELET VOLUME 9.5 fL (7.4-10.4); MONOCYTES 14.3 % (2-11); RBC 3.38 10x6/uL (4.20-6.10); RDW 20.9 % (11.5-14.5); WBC 6.9 10x3/uL (4.8-10.8)
[2019-04-13 07:24] LABS: PLATELET COUNT 189 10x3/uL (130-400)
[2019-04-13 07:33] LABS: ALBUMIN 1.8 g/dL (3.4-5.0); ALKALINE PHOSPHATASE 113 U/L (46-116); CARBON DIOXIDE 22.2 mmol/L (21.0-32.0); CHLORIDE - SERUM 105 mmol/L (98-107); GLUCOSE 164 mg/dL (74-106); POTASSIUM - SERUM 3.4 mmol/L (3.5-5.1); PROTEIN - SERUM 5.5 g/dL (6.4-8.2); SODIUM 138 mmol/L (136-145)
[2019-04-13 08:22] LABS: CALC OSMOLALITY 279 mosm/kg (275-300); CREATININE - SERUM 3.6 mg/dL (0.6-1.3); UREA NITROGEN 13 mg/dL (7-18); eGFR NON AFRICAN AMERICAN 17 mL/min (90-120)
[2019-04-13 08:23] VITALS: BP 112/58
[2019-04-13 08:50] LABS: ALT (SGPT) < 6 U/L (10-68)
--- NOTE | 2019-04-13 09:23 | MORECARE ---
CASE MANAGEMENT DISCHARGE SUMMARY PATIENT: MANA SAXENA UNIT: [id number] ADM DATE: 04/11/19 AGE: 78 : 38 SEX: M ROOM/BED: D.4740 AUTHOR: BJ,DOC PHYSICIAN: REFERRING PHYSICIAN: CANDIDO WELLS DO DATE OF SERVICE: 04/13/19 Discharge Plan Patient Name: MANA SAXENA Facility: [facility]:[place] : 1940 Planned Disposition: Custodial Facility Anticipated Discharge Date: Discharge Date: Expected LOS: Initial Reviewer: [id number] Initial Review Date: 04/11/2019 Generated: 04/13/19 10:23 am Comments DCP- Discharge Planning Updated by [id number]: Freddy Salazar on 04/12/19 4:[address] Patient Name: MANA SAXENA Encounter No: [id number] : 1940 Primary Insurance: AETNA MEDICARE PPO or HMO Anticipated DC Date: Planned Disposition: Custodial Facility External Planned Provider: [facility], MEDICARE REHAB BED DCP follow-up note: CM MET WITH PT AND SPOUSE IN ROOM TO DISCUSS DISCHARGE PLANNING AND NEEDS.MANA SAXENA provided verbal consent to discuss current and ongoing needs with/in the presence of: SPOUSE, . PT REPORTS LIVING AT HOME INDEPENDENTLY WITH HIS PRIOR TO REHAB AT [facility]. PT HAS ROLLING WALKER WITH SEAT AND BRAKES WITH NO MEDICAL EQUIPMENT PROVIDER PREFERENCE. PT HAS NO OUTSIDE SERVICES ASSISTING IN THE HOME. CM DISCUSSED AVAILABILITY OF HOME HEALTH, REHAB SERVICES AND MEDICAL EQUIPMENT. PT WILL RETURN TO [facility] TO FINISH REHAB BEFORE RETURNING HOME. PT IS TRANSPORTED TO AND FROM [facility] ON F SCHEDULE BY REHAB VAN. CHOICE COMPLETED AND SIGNED FOR [facility] SKILLED REHAB RETURN. FOR DISCHARGE, FAX DISCHARGE INFORMATION TO [facility] AT [phone]. NURSE REPORT TO BE CALLED TO [facility] AT [phone]. [facility] TO ARRANGE VAN TRANSPORTATION. FATOUMATA Alvarenga MANAGEMENT DCPIA - Discharge Planning Initial Assessment Updated by [id number]: Freddy Salazar on 04/12/19 5:04 pm * Is the patient Alert and Oriented? Yes * How many steps to enter\exit or inside your home? RAMP * PCP DR. VIC PAREDES , [place] * Pharmacy [facility] * Preadmission Environment Custodial Facility * Facility Name [facility] * ADLs Partial Dependent * Partial ADLs (Assistance needed) Ambulation Bathing Medication Management Transfers * Equipment Rolling Walker * Other Equipment ROLLING WALKER WITH SEAT AND BRAKES NO MEDICAL EQUIPMENT PROVIDER PREFERENCE * List name and contact numbers for known caregivers / representatives who currently or will assist patient after discharge: QUEEN ODESSA, SPOUSE, * Verbal permission to speak to the caregivers and representatives has been obtained from the patient. Yes * Community resources currently utilized Other * Please name any agencies selected above. [facility], M[facility], NURSING FACILITY TRANSPORT * Additional services required to return to the preadmission environment? No * Can the patient safely return to the preadmission environment? Yes * Has this patient been hospitalized within the prior 30 days at any hospital? Yes External Providers External Provider: [facility] Next Contact Date: 04/13/2019 Service Request Date: Service Type: Resolution: Reviewer: Comments: Coverage Notice Reviewer: [id number] Edilia Salazar Notice Issued Date-Time: 04/12/2019 15:30 Notice Type: Patient Choice Letter Notice Delivered To: Family Member Relationship to Patient: Spouse Stock Clerk [employer] Store Name: QUEEN ODESSA Delivery Method: HAND - Hand Delivered Cristina Days: Prior Verbal Notification: Recipient Understood Notice: Yes Recipient Signature: Yes Med Rec Note Co-signed by Attending: Coverage Notice Comment: [facility] SNF RETURN Last DP export: 04/12/19 4:16 p Patient Name: MANA SAXENA Page [phone] at 0923 All edits/amendments must be made on the electronic document DICTATION DATE: 04/13/19921 ENTRY LEVEL SOFTWARE DEVELOPER: GRACE 04/13/19921 RPT#: [id number] DC DATE: STATUS: ADM IN [facility] [address] [place] [address] END OF REPORT
--- NOTE | 2019-04-13 09:29 | MORECARE ---
CASE MANAGEMENT DISCHARGE SUMMARY PATIENT: MANA SAXENA UNIT: [id number] ADM DATE: 04/11/19 AGE: 78 : 38 SEX: M ROOM/BED: D.8379 AUTHOR: JORGE LORENZO PHYSICIAN: REFERRING PHYSICIAN: CANDIDO WELLS DO DATE OF SERVICE: 04/13/19 Discharge Plan Patient Name: MANA SAXENA Facility: [facility]:[place] : 1940 Planned Disposition: Usp Facility Anticipated Discharge Date: Discharge Date: Expected LOS: Initial Reviewer: [id number] Initial Review Date: 04/11/2019 Generated: 04/13/19 10:29 am Comments DCP- Discharge Planning Updated by [email or web address]: Freddy Salazar on 04/13/19 8:[address] Patient Name: MANA SAXENA Encounter No: [id number] : 1940 Primary Insurance: AETNA MEDICARE PPO or HMO Anticipated DC Date: Planned Disposition: [facility]sp Facility External Planned Provider: [facility], MEDICARE REHAB BED DCP follow-up note: CM FAXED UPDATE TO [facility] VIA [employer] AT [phone]. CHART REVIEWED, PT WILL REQUIRE OCCUPATIONAL AND PHYSICAL THERAPY EVALUATIONS FOR LONG-TERM FACILITY TO SUBMIT FOR AUTHORIZATION TO RETURN TO REHAB AT FACILITY FOR HOSPITAL DISCHARGE. PATIENT WILL REQUIRE PRIOR AUTHORIZATION FROM INSURANCE TO RETURN TO REHAB. FOR DISCHARGE, FAX DISCHARGE INFORMATION TO [facility] AT [phone]. NURSE REPORT TO BE CALLED TO [facility] AT [phone]. [facility] TO ARRANGE VAN TRANSPORTATION. FATOUMATA Alvarenga DCP- Discharge Planning Updated by [id number]: Freddy Salazar on 04/12/19 4:[address] Patient Name: MANA SAXENA Encounter No: [id number] : 1940 Primary Insurance: AETNA MEDICARE PPO or HMO Anticipated DC Date: Planned Disposition: [facility]sp Facility External Planned Provider: [facility], MEDICARE REHAB BED DCP follow-up note: CM MET WITH PT AND SPOUSE IN ROOM TO DISCUSS DISCHARGE PLANNING AND NEEDS.MANA SAXENA provided verbal consent to discuss current and ongoing needs with/in the presence of: SPOUSE, . PT REPORTS LIVING AT HOME INDEPENDENTLY WITH HIS PRIOR TO REHAB AT [facility]. PT HAS ROLLING WALKER WITH SEAT AND BRAKES WITH NO MEDICAL EQUIPMENT PROVIDER PREFERENCE. PT HAS NO OUTSIDE SERVICES ASSISTING IN THE HOME. CM DISCUSSED AVAILABILITY OF HOME HEALTH, REHAB SERVICES AND MEDICAL EQUIPMENT. PT WILL RETURN TO [facility] TO FINISH REHAB BEFORE RETURNING HOME. PT IS TRANSPORTED TO AND FROM [facility] ON MWF SCHEDULE BY REHAB VAN. CHOICE COMPLETED AND SIGNED FOR [facility] SKILLED REHAB RETURN. FOR DISCHARGE, FAX DISCHARGE INFORMATION TO [facility] AT [phone]. NURSE REPORT TO BE CALLED TO [facility] AT [phone]. [facility] TO ARRANGE VAN TRANSPORTATION. Freddy Salazar, CASE MANAGEMENT DCPIA - Discharge Planning Initial Assessment Updated by AMELIA: Freddy Salazar on 04/12/19 5:04 pm * Is the patient Alert and Oriented? Yes * How many steps to enter\exit or inside your home? RAMP * PCP DR. VIC PAREDES , [place] * Pharmacy [facility] [place] * Preadmission Environment Usp Facility * Facility Name [facility] * ADLs Partial Dependent * Partial ADLs (Assistance needed) Ambulation Bathing Medication Management Transfers * Equipment Rolling Walker * Other Equipment ROLLING WALKER WITH SEAT AND BRAKES NO MEDICAL EQUIPMENT PROVIDER PREFERENCE * List name and contact numbers for known caregivers / representatives who currently or will assist patient after discharge: QUEEN ODESSA, SPOUSE, * Verbal permission to speak to the caregivers and representatives has been obtained from the patient. Yes * Community resources currently utilized Other * Please name any agencies selected above. [facility], [facility], NURSING FACILITY TRANSPORT * Additional services required to return to the preadmission environment? No * Can the patient safely return to the preadmission environment? Yes * Has this patient been hospitalized within the prior 30 days at any hospital? Yes Coverage Notice Reviewer: [id number] - Freddy Salazar Notice Issued Date-Time: 04/12/2019 15:30 Notice Type: Patient Choice Letter Notice Delivered To: Family Member Relationship to Patient: Spouse Programmer Analyst Health It Name: QUEEN ODESSA Delivery Method: HAND - Hand Delivered Cristina Days: Prior Verbal Notification: Recipient Understood Notice: Yes Recipient Signature: Yes Med Rec Note Co-signed by Attending: Coverage Notice Comment: [facility] SNF RETURN Last DP export: 04/13/19 8:23 a Patient Name: MANA SAXENA Page 57536 at 0929 All edits/amendments must be made on the electronic document DICTATION DATE: 04/13/19928 SILK HANGER: GRACE 04/13/19928 RPT#: [id number] DC DATE: STATUS: ADM IN [facility] [address] [facility] [place] [address] END OF REPORT
[2019-04-13 10:25] LABS: % SATURATION 37 % (15-55); IRON 36 ug/dl (35-150); TOTAL IRON BIND CAPACITY 95 ug/dl (260-445); UNSAT IRON BIND CAPACITY 59 ug/dl (150-375)
--- NOTE | 2019-04-13 11:45 | NUR ---
PT CLEANED AFTER BM AND REPOSITIONED. REDNESS AND TENDERNESS TO BUTTOCKS AND SCROTUM. NOT BLANCHABLE. STOOL IS SOFT AND DARK BROWN. SUCTION TUBING UNCLOGGED.
--- NOTE | 2019-04-13 11:52 | NUR ---
HYGIENE ROUTINE BEING DONE BY FAMILY AT BEDSIDE.
[2019-04-13 12:28] VITALS: BP 122/55
--- NOTE | 2019-04-13 15:00 | NUR ---
I have reviewed this patient and I concur with the Shift Assessment completed by the Licensed Practical Nurse today this shift.
[2019-04-13 16:14] VITALS: BP 125/68
--- NOTE | 2019-04-13 19:36 | NUR ---
ASSESSMENT COMPLETE, PT A&O. RESPERATIONS NON LABORED ON RA. IV TO RIGHT FOREARM SL. LEFT AVF NOTED (+,+). PT DENIES PAIN OR NEEDS, BED LOW. CL IN REACH.
[2019-04-13 20:00] VITALS: BP 112/70
--- NOTE | 2019-04-14 02:31 | NUR ---
I have reviewed this patient and I concur with the Shift Assessment completed by the Licensed Practical Nurse today this shift.
--- NOTE | 2019-04-14 03:27 | NUR ---
RESTING WITH EYES CLSOED, RESPERATIONS EVEN, NO S/S DISTRESS NOTED.
[2019-04-14 04:00] VITALS: BP 118/66
[2019-04-14 04:41] LABS: BASOPHILS 0.1 % (0-2); EOSINOPHILS 0.7 % (0-7); HEMATOCRIT 36.1 % (42.0-54.0); HEMOGLOBIN 11.7 g/dL (13.5-17.5); IMMATURE GRANULOCYTES 0.5 % (0-5); MCH 30.5 pg (26.0-34.0); MCHC 32.4 g/dL (31.0-37.0); MCV 94.3 fL (80.0-100.0); MEAN PLATELET VOLUME 10.6 fL (7.4-10.4); MONOCYTES 16.5 % (2-11); NEUTROPHILS 66.2 % (40-80); RBC 3.83 10x6/uL (4.20-6.10); WBC 7.5 10x3/uL (4.8-10.8)
[2019-04-14 04:56] LABS: PLATELET COUNT 291 10x3/uL (130-400)
[2019-04-14 05:21] LABS: ALBUMIN 2.2 g/dL (3.4-5.0); ANION GAP 17.1 mmol/L (8-16); BILIRUBIN - TOTAL 0.61 mg/dL (0.2-1.3); CALCIUM 8.3 mg/dL (8.5-10.1); CARBON DIOXIDE 20.8 mmol/L (21.0-32.0); MAGNESIUM - SERUM 1.8 mg/dL (1.8-2.4); PHOSPHOROUS 1.8 mg/dL (2.5-4.9); POTASSIUM - SERUM 3.9 mmol/L (3.5-5.1); PROTEIN - SERUM 6.5 g/dL (6.4-8.2)
[2019-04-14 05:25] LABS: CREATININE - SERUM 4.8 mg/dL (0.6-1.3)
--- NOTE | 2019-04-14 07:25 | NUR ---
PT'S CALL LIGHT GOING OFF, WENT TO ANSWER LIGHT, PT STATED THAT HE NEEDED TO BE CLEANED UP. CLEANED PT UP FROM INCONT EPISODE, ALSO PROVIDED PT WITH EXTRA BLANKET. PT DENIES ANY OTHER NEEDS AT THIS TIME. BEDSIDE RAILS X2, CALL LIGHT IN REACH, NAD NOTED, WILL CONTINUE PLAN OF CARE.
[2019-04-14 08:12] LABS: FOLATE (FOLIC ACID) - SERUM 7.7 ng/mL (>3.0)
--- NOTE | 2019-04-14 08:35 | NUR ---
AM MEDS GIVEN, NO TROUBLE SWALLOWING. PT EATING BREAKFAST, DENIES NEEDS AT THIS TIME. CALL LIGHT IN REACH, BEDSIDE RAILS X2. WILL CONTINUE TO MONITOR.
--- NOTE | 2019-04-14 08:35 | MORECARE ---
CASE MANAGEMENT DISCHARGE SUMMARY PATIENT: MANA SAXENA UNIT: [id number] ADM DATE: 04/11/19 AGE: 78 : 38 SEX: M ROOM/BED: D.9185 AUTHOR: JORGE LORENZO PHYSICIAN: REFERRING PHYSICIAN: CANDIDO WELLS DO DATE OF SERVICE: 04/14/19 Discharge Plan Patient Name: MANA SAXENA Facility: [facility]:[place] : 1940 Planned Disposition: Detention Facility Anticipated Discharge Date: Discharge Date: Expected LOS: Initial Reviewer: [id number] Initial Review Date: 04/11/2019 Generated: 04/14/19 9:35 am Comments DCP- Discharge Planning Updated by [email or web address]: Freddy Salazar on 04/14/19 7:[address] Patient Name: MANA SAXENA Encounter No: [id number] : 1940 Primary Insurance: AETNA MEDICARE PPO or HMO Anticipated DC Date: Planned Disposition: Detention Facility External Planned Provider:[facility], MEDICARE REHAB BED DCP follow-up note: CM FAXED UPDATE WITH PHYSICAL THERAPY EVALUATION TO [facility] AT [phone]. CHART REVIEWED, PT WILL REQUIRE OCCUPATIONAL EVALUATION FOR PRISON FACILITY TO SUBMIT FOR AUTHORIZATION TO RETURN TO REHAB AT FACILITY FOR HOSPITAL DISCHARGE. PATIENT WILL REQUIRE PRIOR AUTHORIZATION FROM INSURANCE TO RETURN TO REHAB. FOR DISCHARGE, FAX DISCHARGE INFORMATION TO [facility] AT [phone]. NURSE REPORT TO BE CALLED TO [facility] AT [phone]. [facility] TO ARRANGE VAN TRANSPORTATION. Freddy Salazar CASE MANAGEMENT DCP- Discharge Planning Updated by [id number]: Freddy Salazar on 04/13/19 8:[address] Patient Name: MANA SAXENA Encounter No: [id number] : 1940 Primary Insurance: AETNA MEDICARE PPO or HMO Anticipated DC Date: Planned Disposition: Detention Facility External Planned Provider: [facility], MEDICARE REHAB BED DCP follow-up note: CM FAXED UPDATE TO [facility] AT [phone]. CHART REVIEWED, PT WILL REQUIRE OCCUPATIONAL AND PHYSICAL THERAPY EVALUATIONS FOR PRISON FACILITY TO SUBMIT FOR AUTHORIZATION TO RETURN TO REHAB AT FACILITY FOR HOSPITAL DISCHARGE. PATIENT WILL REQUIRE PRIOR AUTHORIZATION FROM INSURANCE TO RETURN TO REHAB. FOR DISCHARGE, FAX DISCHARGE INFORMATION TO [facility] AT [phone]. NURSE REPORT TO BE CALLED TO [facility] AT [phone]. [facility] TO ARRANGE VAN TRANSPORTATION. FATOUMATA Alvarenga DCP- Discharge Planning Updated by [email or web address]: Freddy Salazar on 04/12/19 4:[address] Patient Name: MANA SAXENA Encounter No: [id number] : 1940 Primary Insurance: AETNA MEDICARE PPO or HMO Anticipated DC Date: Planned Disposition: Detention Facility External Planned Provider: [facility], MEDICARE REHAB BED DCP follow-up note: CM MET WITH PT AND SPOUSE IN ROOM TO DISCUSS DISCHARGE PLANNING AND NEEDS.MANA SAXENA provided verbal consent to discuss current and ongoing needs with/in the presence of: SPOUSE, . PT REPORTS LIVING AT HOME INDEPENDENTLY WITH HIS PRIOR TO REHAB AT [facility]. PT HAS ROLLING WALKER WITH SEAT AND BRAKES WITH NO MEDICAL EQUIPMENT PROVIDER PREFERENCE. PT HAS NO OUTSIDE SERVICES ASSISTING IN THE HOME. CM DISCUSSED AVAILABILITY OF HOME HEALTH, REHAB SERVICES AND MEDICAL EQUIPMENT. PT WILL RETURN TO [facility] TO FINISH REHAB BEFORE RETURNING HOME. PT IS TRANSPORTED TO AND FROM [facility] ON F SCHEDULE BY REHAB VAN. CHOICE COMPLETED AND SIGNED FOR [facility] SKILLED REHAB RETURN. FOR DISCHARGE, FAX DISCHARGE INFORMATION TO [facility] AT [phone]. NURSE REPORT TO BE CALLED TO [facility] AT [phone]. [facility] TO ARRANGE VAN TRANSPORTATION. FATOUMATA Alvarenga DCPIA - Discharge Planning Initial Assessment Updated by [id number]: Freddy Salazar on 04/12/19 5:04 pm * Is the patient Alert and Oriented? Yes * How many steps to enter\exit or inside your home? RAMP * PCP DR. VIC PAREDES , [place] * Pharmacy [facility] * Preadmission Environment Detention Facility * Facility Name [facility] * ADLs Partial Dependent * Partial ADLs (Assistance needed) Ambulation Bathing Medication Management Transfers * Equipment Rolling Walker * Other Equipment ROLLING WALKER WITH SEAT AND BRAKES NO MEDICAL EQUIPMENT PROVIDER PREFERENCE * List name and contact numbers for known caregivers / representatives who currently or will assist patient after discharge: QUEEN ODESSA, SPOUSE, * Verbal permission to speak to the caregivers and representatives has been obtained from the patient. Yes * Community resources currently utilized Other * Please name any agencies selected above. [facility], MWF, NURSING FACILITY TRANSPORT * Additional services required to return to the preadmission environment? No * Can the patient safely return to the preadmission environment? Yes * Has this patient been hospitalized within the prior 30 days at any hospital? Yes Coverage Notice Reviewer: [id number] Edilia Salazar Notice Issued Date-Time: 04/12/2019 15:30 Notice Type: Patient Choice Letter Notice Delivered To: Family Member Relationship to Patient: Spouse Manager Sas Name: QUEEN ODESSA Delivery Method: HAND - Hand Delivered Cristina Days: Prior Verbal Notification: Recipient Understood Notice: Yes Recipient Signature: Yes Med Rec Note Co-signed by Attending: Coverage Notice Comment: [facility] RETURN Last DP export: 04/13/19 8:29 a Patient Name: MANA SAXENA Page 21732 at 0835 All edits/amendments must be made on the electronic document DICTATION DATE: 04/14/19833 HUMAN DEVELOPMENT PROFESSOR: GRACE 04/14/1936 RPT#: [id number] DC DATE: STATUS: ADM IN [facility] [address] [place] [address] END OF REPORT
[2019-04-14 08:39] VITALS: BP 119/71
[2019-04-14 11:40] VITALS: BP 128/75
--- NOTE | 2019-04-14 14:05 | NUR ---
PT HAD BOWEL MOVEMENT, CHAGNED SHEETS AND BED PADS. DENIES OTHER NEEDS AT THIS TIME. WILL CONTINUE TO MONITOR.
--- NOTE | 2019-04-14 14:42 | NUR ---
Nutrition follow-up: Diet: Renal ADA PO intake remains poor at this time Labs reviewed Wt: 150# +BM; now soft stool instead of diarrhea RDN will order Nepro with meals RDN following.
--- NOTE | 2019-04-14 15:03 | NUR ---
PT RESTING COMFORTABLY IN BED, DENIES ANY NEEDS AT THIS TIME. CALL LIGHT IN REACH, NAD NOTED, WILL CONTINUE TO MONITOR.
--- NOTE | 2019-04-14 15:50 | NUR ---
OT NOTE: ATTEMPTED EVAL ON THIS DATE, HOWEVER, PT REFUSED. WILL RE ATTEMPT TOMORROW. DOMO STEEL, OTR/L
[2019-04-14 18:36] VITALS: BP 124/74
--- NOTE | 2019-04-14 19:00 | NUR ---
PATIENT LAYING IN BED. EYES CLOSED, CHEST RISING AND FALLING. NO DISTRESS NOTED.
[2019-04-14 20:00] VITALS: BP 110/65
--- NOTE | 2019-04-15 00:39 | NUR ---
PATIENT LAYING IN BED. COMPLAINS OF DIARRHEA. PATIENT CLEANED UP AND BED LINENS CHANGED. NO OTHER COMPLAINTS. NO DISTRESS NOTED.
[2019-04-15 04:00] VITALS: BP 118/60
--- NOTE | 2019-04-15 04:02 | NUR ---
I have reviewed this patient and I concur with the Shift Assessment completed by the Licensed Practical Nurse today this shift.
--- NOTE | 2019-04-15 07:10 | NUR ---
REPORT RECEIVED FROM CAM MILLING MACHINE OPERATOR AND PATIENT CARE ASSUMED. PATIENT LAYING IN BED ON RT SIDE WITH EYS CLOSED AND BREATHING EVENLY. PATIENT IS STABLE AND VSS. WILL CONTINUE WITH PLAN OF CARE. SR UP X 2 BED IN LOW POSTION AND CALL LIGHT IN REACH.
[2019-04-15 07:16] LABS: ALBUMIN 2.4 g/dL (3.4-5.0); ANION GAP 13.5 mmol/L (8-16); BILIRUBIN - TOTAL 0.53 mg/dL (0.2-1.3); CALCIUM 8.4 mg/dL (8.5-10.1); CARBON DIOXIDE 25.8 mmol/L (21.0-32.0); CREATININE - SERUM 4.4 mg/dL (0.6-1.3); PROTEIN - SERUM 6.8 g/dL (6.4-8.2)
[2019-04-15 07:18] LABS: PHOSPHOROUS 2.4 mg/dL (2.5-4.9); POTASSIUM - SERUM 3.3 mmol/L (3.5-5.1)
[2019-04-15 07:45] LABS: HEMATOCRIT 36.2 % (42.0-54.0); HEMOGLOBIN 11.7 g/dL (13.5-17.5); MCH 30.4 pg (26.0-34.0); MCHC 32.3 g/dL (31.0-37.0); MEAN PLATELET VOLUME 11.5 fL (7.4-10.4); PLATELET COUNT 287 10x3/uL (130-400); RBC 3.85 10x6/uL (4.20-6.10); RDW 20.8 % (11.5-14.5); WBC 6.9 10x3/uL (4.8-10.8)
[2019-04-15 08:10] VITALS: BP 110/61
[2019-04-15 08:33] LABS: LYMPHOCYTES 17 % (15-50); MONOCYTES 17 % (2-11); NEUTROPHILS 63 % (40-80); PLATELET ESTIMATE NORMAL
[2019-04-15 08:34] LABS: SMUDGE CELLS OCC
--- NOTE | 2019-04-15 09:11 | NUR ---
PATIENT LAYING IN BED AWAKE, ALERT AND ORIENTED X 4. PATIENT DENIES ANY NEEDS OR PAIN. PATIENT IS STABLE AND VSS. ASSESSMENT COMPLETED. WILL CONTINUE WITH PLAN OF CARE. SR UP X 2 BED IN LOW POSITION AND CALL LIGHT IN REACH.
--- NOTE | 2019-04-15 09:39 | NUR ---
Excoriation noted on left buttock just above gluteal fold. Recommend calmoseptine cream for protection. Pt is incontinent and requires total care. -Turn/reposition q 2 hours -bridge heels -Calmoseptine cream to zoe area Wound care will continue monitoring.
[2019-04-15 11:37] VITALS: BP 118/66
--- NOTE | 2019-04-15 12:47 | MORECARE ---
CASE MANAGEMENT DISCHARGE SUMMARY PATIENT: MANA SAXENA UNIT: [id number] ADM DATE: 04/11/19 AGE: 78 : 38 SEX: M ROOM/BED: D.7059 AUTHOR: JORGE LORENZO PHYSICIAN: REFERRING PHYSICIAN: CANDIDO WELLS DO DATE OF SERVICE: 04/15/19 Discharge Plan Patient Name: MANA SAXENA Facility: [facility]:[place] : 1940 Planned Disposition: Usp Facility Anticipated Discharge Date: 04/15/19 Discharge Date: Expected LOS: 4 Initial Reviewer: [id number] Initial Review Date: 04/11/2019 Generated: 04/15/19 1:47 pm Comments DCP- Discharge Planning Updated by [id number]: Freddy Salazar on 04/15/19 11:[address] Patient Name: MANA SAXENA Encounter No: [id number] : 1940 Primary Insurance: AETNA MEDICARE PPO or HMO Anticipated DC Date: 04-15-2019 Planned Disposition: Usp Facility External Planned Provider: [facility], MEDICARE REHAB BED DCP follow-up note: CM SPOKE TO [place] OF [facility], THEY HAVE RECEIVED AUTHORIZATION FROM INSURANCE [employer] FOR PT TO RETURN TO REHAB. RN HOUSE NOTIFIED BOWEN TEJADA AND [facility]OW[facility] PATTEN. FOR DISCHARGE, FAX DISCHARGE INFORMATION TO [facility] AT [phone]. NURSE REPORT TO BE CALLED TO [facility] AT [phone]. [facility] TO ARRANGE VAN TRANSPORTATION. FATOUMATA Alvarenga DCP- Discharge Planning Updated by [id number]: Freddy Salazar on 04/14/19 7:[address] Patient Name: MANA SAXENA Encounter No: [id number] : 1940 Primary Insurance: AETNA MEDICARE PPO or HMO Anticipated DC Date: Planned Disposition: Usp Facility External Planned Provider:[facility], MEDICARE REHAB BED DCP follow-up note: CM FAXED UPDATE WITH PHYSICAL THERAPY EVALUATION TO [facility] AT [phone]. CHART REVIEWED, PT WILL REQUIRE OCCUPATIONAL EVALUATION FOR [facility] FACILITY TO SUBMIT FOR AUTHORIZATION TO RETURN TO REHAB AT FACILITY FOR HOSPITAL DISCHARGE. PATIENT WILL REQUIRE PRIOR AUTHORIZATION FROM INSURANCE TO RETURN TO REHAB. FOR DISCHARGE, FAX DISCHARGE INFORMATION TO [facility] AT [phone]. NURSE REPORT TO BE CALLED TO [facility] AT [phone]. [facility] TO ARRANGE VAN TRANSPORTATION. Freddy Salazar CASE MANAGEMENT DCP- Discharge Planning Updated by [id number]: Freddy Salazar on 04/13/19 8:[address] Patient Name: MANA SAXENA Encounter No: [id number] : 1940 Primary Insurance: AETNA MEDICARE PPO or HMO Anticipated DC Date: Planned Disposition: Usp Facility External Planned Provider: [facility], MEDICARE REHAB BED DCP follow-up note: CM FAXED UPDATE TO [facility] AT [phone]. CHART REVIEWED, PT WILL REQUIRE OCCUPATIONAL AND PHYSICAL THERAPY EVALUATIONS FOR [facility] FACILITY TO SUBMIT FOR AUTHORIZATION TO RETURN TO REHAB AT FACILITY FOR HOSPITAL DISCHARGE. PATIENT WILL REQUIRE PRIOR AUTHORIZATION FROM INSURANCE TO RETURN TO REHAB. FOR DISCHARGE, FAX DISCHARGE INFORMATION TO [facility] AT [phone]. NURSE REPORT TO BE CALLED TO [facility] AT [phone]. [facility] TO ARRANGE VAN TRANSPORTATION. Freddy Salazar CASE MANAGEMENT DCP- Discharge Planning Updated by [email or web address]: Freddy Salazar on 04/12/19 4:[address] Patient Name: MANA SAXENA Encounter No: [id number] : 1940 Primary Insurance: AETNA MEDICARE PPO or HMO Anticipated DC Date: Planned Disposition: Usp Facility External Planned Provider: [facility], MEDICARE REHAB BED DCP follow-up note: CM MET WITH PT AND SPOUSE IN ROOM TO DISCUSS DISCHARGE PLANNING AND NEEDS.MANA SAXENA provided verbal consent to discuss current and ongoing needs with/in the presence of: SPOUSE, . PT REPORTS LIVING AT HOME INDEPENDENTLY WITH HIS PRIOR TO REHAB AT [facility]. PT HAS ROLLING WALKER WITH SEAT AND BRAKES WITH NO MEDICAL EQUIPMENT PROVIDER PREFERENCE. PT HAS NO OUTSIDE SERVICES ASSISTING IN THE HOME. CM DISCUSSED AVAILABILITY OF HOME HEALTH, REHAB SERVICES AND MEDICAL EQUIPMENT. PT WILL RETURN TO [facility] TO FINISH REHAB BEFORE RETURNING HOME. PT IS TRANSPORTED TO AND FROM [facility] ON [facility] SCHEDULE BY REHAB VAN. CHOICE COMPLETED AND SIGNED FOR [facility] SKILLED REHAB RETURN. FOR DISCHARGE, FAX DISCHARGE INFORMATION TO [facility] AT [phone]. NURSE REPORT TO BE CALLED TO [facility] AT [phone]. [facility] TO ARRANGE VAN TRANSPORTATION. Freddy Salazar, CASE MANAGEMENT DCPIA - Discharge Planning Initial Assessment Updated by AMELIA: Freddy Salazar on 04/12/19 5:04 pm * Is the patient Alert and Oriented? Yes * How many steps to enter\exit or inside your home? RAMP * PCP DR. VIC PAREDES , [place] * Pharmacy [facility] * Preadmission Environment Usp Facility * Facility Name [facility] * ADLs Partial Dependent * Partial ADLs (Assistance needed) Ambulation Bathing Medication Management Transfers * Equipment Rolling Walker * Other Equipment ROLLING WALKER WITH SEAT AND BRAKES NO MEDICAL EQUIPMENT PROVIDER PREFERENCE * List name and contact numbers for known caregivers / representatives who currently or will assist patient after discharge: QUEEN ODESSA, SPOUSE, * Verbal permission to speak to the caregivers and representatives has been obtained from the patient. Yes * Community resources currently utilized Other * Please name any agencies selected above. [facility], MWF, NURSING FACILITY TRANSPORT * Additional services required to return to the preadmission environment? No * Can the patient safely return to the preadmission environment? Yes * Has this patient been hospitalized within the prior 30 days at any hospital? Yes Coverage Notice Reviewer: [id number] - Freddy Salazar Notice Issued Date-Time: 04/12/2019 15:30 Notice Type: Patient Choice Letter Notice Delivered To: Family Member Relationship to Patient: Spouse Division Commander Name: QUEEN ODESSA Delivery Method: HAND - Hand Delivered Cristina Days: Prior Verbal Notification: Recipient Understood Notice: Yes Recipient Signature: Yes Med Rec Note Co-signed by Attending: Coverage Notice Comment: [facility] RETURN Last DP export: 04/14/19 7:35 a Patient Name: MANA SAXENA Page 51352 at 1247 All edits/amendments must be made on the electronic document DICTATION DATE: 04/15/19 1246 TRAFFIC SERGEANT: GRACE 04/15/19 1246 RPT#: [id number] DC DATE: STATUS: ADM IN [facility] [address] [place] [address] END OF REPORT
--- NOTE | 2019-04-15 14:20 | NUR ---
PATIENT AWAKE, ALERT AND DENIES ANY NEEDS OR PAIN. PATIENT IS STABLE AND VSS. WILL CONTINUE TO MONITOR. SR UP X 2 BED IN LOW POSITION AND CALL LIGHT IN REACH.
[2019-04-15 14:38] VITALS: BP 118/64
--- NOTE | 2019-04-15 15:38 | NUR ---
OT NOTE: PT COMPLETED BED MOB WITH MOD A. PT COMPLETED SIT TO STAND WITH MIN A. PT COMPLETED HYGIENE TASKS WITH MAX A. THANK YOU, TROY SHORT
--- NOTE | 2019-04-15 16:54 | MORECARE ---
CASE MANAGEMENT DISCHARGE SUMMARY PATIENT: MANA SAXENA UNIT: [id number] ADM DATE: 04/11/19 AGE: 78 : 38 SEX: M ROOM/BED: D.9029 AUTHOR: BJ,DOC PHYSICIAN: REFERRING PHYSICIAN: CANDIDO WELLS DO DATE OF SERVICE: 04/15/19 Discharge Plan Patient Name: MANA SAXENA Facility: [facility]:[place] : 1940 Planned Disposition: Jail Facility Anticipated Discharge Date: 04/15/19 Discharge Date: Expected LOS: 4 Initial Reviewer: [id number] Initial Review Date: 04/11/2019 Generated: 04/15/19 5:54 pm Comments DCP- Discharge Planning Updated by [email or web address]: Freddy Salazar on 04/15/19 3:[address] Patient Name: MANA SAXENA Encounter No: [id number] : 1940 Primary Insurance: AETNA MEDICARE PPO or HMO Anticipated DC Date: 04-15-2019 Planned Disposition: Jail Facility External Planned Provider: [facility], MEDICARE REHAB BED DCP follow-up note: CM SPOKE TO [place] [facility], THEY HAVE RECEIVED AUTHORIZATION FROM INSURANCE COMPANY FOR PT TO RETURN TO REHAB. RN HOUSE NOTIFIED BOWEN TEJADA AND BOWEN PATTEN. FOR DISCHARGE, FAX DISCHARGE INFORMATION TO [facility] AT [phone]. NURSE REPORT TO BE CALLED TO [facility] AT [phone]. [facility] TO ARRANGE VAN TRANSPORTATION. Freddy Salazar, CASE MANAGEMENT Appended by Freddy Salazar on 04/15/2019 16:52 CDT: CM DISCUSSED REHAB RETURN WITH PT IN ROOM, PT IN AGREEMENT, IMPORTANT MESSAGE FROM MEDICARE PROVIDED AND EXPLAINED. CM RECEIVED CALL FROM PT'S , SHE IS ALSO IN AGREEMENT WITH RETURN TO REHAB AT [facility]. INSURANCE AUTHORIZATION RECEIVED FOR REHAB 04-15-19 AT [facility]. FOR DISCHARGE, FAX DISCHARGE INFORMATION TO [facility] AT [phone]. NURSE REPORT TO BE CALLED TO [facility] AT [phone]. [facility] TO ARRANGE VAN TRANSPORTATION. FATOUMATA Alvarenga DCP- Discharge Planning Updated by [id number]: Freddy Salazar on 04/14/19 7:[address] Patient Name: MANA SAXENA Encounter No: [id number] : 1940 Primary Insurance: AETNA MEDICARE PPO or HMO Anticipated DC Date: Planned Disposition: Jail Facility External Planned Provider:[facility], MEDICARE REHAB BED DCP follow-up note: CM FAXED UPDATE WITH PHYSICAL THERAPY EVALUATION TO [facility]IA [employer] AT [phone]. CHART REVIEWED, PT WILL REQUIRE OCCUPATIONAL EVALUATION FOR GROUP HOME FACILITY TO SUBMIT FOR AUTHORIZATION TO RETURN TO REHAB AT FACILITY FOR HOSPITAL DISCHARGE. PATIENT WILL REQUIRE PRIOR AUTHORIZATION FROM INSURANCE TO RETURN TO REHAB. FOR DISCHARGE, FAX DISCHARGE INFORMATION TO [facility] AT [phone]. NURSE REPORT TO BE CALLED TO [facility] AT [phone]. [facility] TO ARRANGE VAN TRANSPORTATION. Freddy Salazar CASE MANAGEMENT DCP- Discharge Planning Updated by [id number]: Freddy Salazar on 04/13/19 8:[address] Patient Name: MANA SAXENA Encounter No: [id number] : 1940 Primary Insurance: AETNA MEDICARE PPO or HMO Anticipated DC Date: Planned Disposition: Jail Facility External Planned Provider: [facility], MEDICARE REHAB BED DCP follow-up note: CM FAXED UPDATE TO [facility] [employer] AT [phone]. CHART REVIEWED, PT WILL REQUIRE OCCUPATIONAL AND PHYSICAL THERAPY EVALUATIONS FOR GROUP HOME FACILITY TO SUBMIT FOR AUTHORIZATION TO RETURN TO REHAB AT FACILITY FOR HOSPITAL DISCHARGE. PATIENT WILL REQUIRE PRIOR AUTHORIZATION FROM INSURANCE TO RETURN TO REHAB. FOR DISCHARGE, FAX DISCHARGE INFORMATION TO [facility] AT [phone]. NURSE REPORT TO BE CALLED TO [facility] AT [phone]. [facility] TO ARRANGE VAN TRANSPORTATION. Freddy Salazar CASE MANAGEMENT DCP- Discharge Planning Updated by [id number]: Freddy Salazar on 04/12/19 4:[address] Patient Name: MANA SAXENA Encounter No: [id number] : 1940 Primary Insurance: AETNA MEDICARE PPO or HMO Anticipated DC Date: Planned Disposition: Jail Facility External Planned Provider: [facility], MEDICARE REHAB BED DCP follow-up note: CM MET WITH PT AND SPOUSE IN ROOM TO DISCUSS DISCHARGE PLANNING AND NEEDS.MANA SAXENA provided verbal consent to discuss current and ongoing needs with/in the presence of: SPOUSE, . PT REPORTS LIVING AT HOME INDEPENDENTLY WITH HIS PRIOR TO REHAB AT [facility]. PT HAS ROLLING WALKER WITH SEAT AND BRAKES WITH NO MEDICAL EQUIPMENT PROVIDER PREFERENCE. PT HAS NO OUTSIDE SERVICES ASSISTING IN THE HOME. CM DISCUSSED AVAILABILITY OF HOME HEALTH, REHAB SERVICES AND MEDICAL EQUIPMENT. PT WILL RETURN TO [facility] TO FINISH REHAB BEFORE RETURNING HOME. PT IS TRANSPORTED TO AND FROM [facility] ON MWF SCHEDULE BY REHAB VAN. CHOICE COMPLETED AND SIGNED FOR [facility] SKILLED REHAB RETURN. FOR DISCHARGE, FAX DISCHARGE INFORMATION TO [facility] AT [phone]. NURSE REPORT TO BE CALLED TO [facility] AT [phone]. [facility] TO ARRANGE VAN TRANSPORTATION. Freddy Salazar, CASE MANAGEMENT DCPIA - Discharge Planning Initial Assessment Updated by [email or web address]: Freddy Salazar on 04/12/19 5:04 pm * Is the patient Alert and Oriented? Yes * How many steps to enter\exit or inside your home? RAMP * PCP DR. VIC PAREDES , [place] * Pharmacy [facility] [place] * Preadmission Environment Jail Facility * Facility Name [facility] * ADLs Partial Dependent * Partial ADLs (Assistance needed) Ambulation Bathing Medication Management Transfers * Equipment Rolling Walker * Other Equipment ROLLING WALKER WITH SEAT AND BRAKES NO MEDICAL EQUIPMENT PROVIDER PREFERENCE * List name and contact numbers for known caregivers / representatives who currently or will assist patient after discharge: QUEEN ODESSA, SPOUSE, * Verbal permission to speak to the caregivers and representatives has been obtained from the patient. Yes * Community resources currently utilized Other * Please name any agencies selected above. [facility], [facility], NURSING FACILITY TRANSPORT * Additional services required to return to the preadmission environment? No * Can the patient safely return to the preadmission environment? Yes * Has this patient been hospitalized within the prior 30 days at any hospital? Yes Coverage Notice Reviewer: [id number] - Freddy Salazar Notice Issued Date-Time: 04/12/2019 15:30 Notice Type: Patient Choice Letter Notice Delivered To: Family Member Relationship to Patient: Spouse Fire Hydrant Operator Name: QUEEN ODESSA Delivery Method: HAND - Hand Delivered Cristina Days: Prior Verbal Notification: Recipient Understood Notice: Yes Recipient Signature: Yes Med Rec Note Co-signed by Attending: Coverage Notice Comment: [facility] RETURN Reviewer: [id number] - Freddy Salazar Notice Issued Date-Time: 04/15/2019 14:20 Notice Type: IM Discharge Notice Notice Delivered To: Patient Relationship to Patient: Fire Hydrant Operator Name: Delivery Method: HAND - Hand Delivered Cristina Days: Prior Verbal Notification: Recipient Understood Notice: Yes Recipient Signature: Yes Med Rec Note Co-signed by Attending: Coverage Notice Comment: Last DP export: 04/15/19 11:47 a Patient Name: MANA SAXENA Page [id number] at 1654 All edits/amendments must be made on the electronic document DICTATION DATE: 04/15/191653 TALLOW MAKER: GRACE 04/15/191653 RPT#: [id number] DC DATE: STATUS: ADM IN [facility] [address] [place] [address] END OF REPORT
--- NOTE | 2019-04-15 18:29 | NUR ---
PATIENT LAYING IN BED ON RT SIDE WITH EYES CLOSED AND BREATHING EVENLY. PATIENT IS STABLE AND VSS. WILL CONTINUE TO MONITOR. SR UP X 2 BED IN LOW POSITION AND CALL LIGHT IN REACH.
--- NOTE | 2019-04-15 19:20 | NUR ---
PT ASLEEP. AROUSES TO VERBAL STIMULI. PT IS HARD OF HEARING. PT DENIES ANY NEEDS. NO S/S OF DISTRESS. NAME AND DATE PLACED ON BOARD. BED LOW AND CALL LIGHT IN REACH. WILL CPOC
[2019-04-15 20:00] VITALS: BP 124/71
[2019-04-16] VITALS: BP 116/67
--- NOTE | 2019-04-16 00:15 | NUR ---
PT FSBS IS 243 LANTUS GIVEN ORDERED. NO REGULAR INSULIN GIVEN. PT STATES DROPS EASY. PT COUGHING UP SMALL AMOUNTS AND SPITTING IT INTO SUCTION. PT TOOK NIGHT MEDICATIONS. PT DENIES ANY OTHER NEEDS. REPOSITIONINIG PT. PT WILL CALL FOR ASSIST WHEN NEEDED. CARLOS COLÓN AND YANIRA PACKETS. WILL CPOC
--- NOTE | 2019-04-16 03:38 | NUR ---
PT HAD A LARGE INCONT EPISODE. CLEANED PT, CHANGED LINEN AND GOWN. FOLLOWED ISOLATION PRECAUTIONS. PT DENIES ANY OTHER NEEDS. NO S/S OF DISTRESS. BED LOW AND CALL LIGHT IN REACH. SENT CDT TO LAB. WILL CPOC
[2019-04-16 04:00] VITALS: BP 126/72
--- NOTE | 2019-04-16 05:32 | NUR ---
PT RIGHT WRIST IV LEAKING AND NOT PATENT. REMOVED IV. 2 ATTEMPTS UNSUCCESSFUL. WILL CONTINUE TO ATTEMPT ACCESS. PT HAS NO S/S OF DISTRESS INCONT OF LARGE LOOSE BM. CLEANED PT AND GAVE A BATH. PT WILL CALL FOR ASSIST WHEN NEEDED. ALARM ON AND ACTIVE. WILL CPOC
--- NOTE | 2019-04-16 06:32 | NUR ---
MORNING MEDICATIONS GIVEN. QUESTRAN PACKET GIVEN WELL FRESH WATER. PT INCONT A MODERATE AMOUNT. CLEANED PT AND APPLIED NIKOLAS. PT FSBS IS 178 NO INSULIN GIVEN AT THIS TIME DUE TO PT BECOMES HYPOGLYCEMIC QUICKLY PT HAS ON S/S OF DISTRESS. NO IV ACCESS UNABLE TO GIVE FLAGYL WILL CPOC
--- NOTE | 2019-04-16 07:10 | NUR ---
REPORT RECIEVED FROM WEIGHT CALCULATOR AND PATIENT CARE ASSUMED. PATIENT LAYING IN BED ON BACK WITH EYES CLOSED AND BREATHING EVENLY. PATIENT IS STABLE AND VSS. WILL CONTINUE WITH PLAN OF CARE. SR UP X 2 BED IN LOW POSITION AND CALL LIGHT IN REACH.
[2019-04-16 08:18] VITALS: BP 149/78
[2019-04-16 08:49] LABS: BASOPHILS 0.1 % (0-2); EOSINOPHILS 0.4 % (0-7); HEMATOCRIT 35.2 % (42.0-54.0); HEMOGLOBIN 11.4 g/dL (13.5-17.5); IMMATURE GRANULOCYTES 0.5 % (0-5); LYMPHOCYTES 12.1 % (15-50); MCH 30.4 pg (26.0-34.0); MCHC 32.4 g/dL (31.0-37.0); MCV 93.9 fL (80.0-100.0); MEAN PLATELET VOLUME 10.7 fL (7.4-10.4); MONOCYTES 13.4 % (2-11); NEUTROPHILS 73.5 % (40-80); PLATELET COUNT 294 10x3/uL (130-400); RBC 3.75 10x6/uL (4.20-6.10); RDW 20.8 % (11.5-14.5); WBC 8.5 10x3/uL (4.8-10.8)
[2019-04-16 09:16] LABS: ALBUMIN 2.4 g/dL (3.4-5.0); ANION GAP 14.3 mmol/L (8-16); BILIRUBIN - TOTAL 0.62 mg/dL (0.2-1.3); CALCIUM 8.6 mg/dL (8.5-10.1); CARBON DIOXIDE 25.1 mmol/L (21.0-32.0); CREATININE - SERUM 5.4 mg/dL (0.6-1.3); PROTEIN - SERUM 6.5 g/dL (6.4-8.2)
[2019-04-16 09:17] LABS: POTASSIUM - SERUM 4.4 mmol/L (3.5-5.1)
--- NOTE | 2019-04-16 09:28 | MORECARE ---
CASE MANAGEMENT DISCHARGE SUMMARY PATIENT: MANA SAXENA UNIT: [id number] ADM DATE: 04/11/19 AGE: 78 : 38 SEX: M ROOM/BED: D.1220 AUTHOR: JORGE LORENZO PHYSICIAN: REFERRING PHYSICIAN: CANDIDO WELLS DO DATE OF SERVICE: 04/16/19 Discharge Plan Patient Name: MANA SAXENA Facility: [facility]:[place] : 1940 Planned Disposition: Alf Facility Anticipated Discharge Date: 04/15/19 Discharge Date: Expected LOS: 4 Initial Reviewer: [id number] Initial Review Date: 04/11/2019 Generated: 04/16/19 10:28 am Comments DCP- Discharge Planning Updated by [id number]: Freddy Salazar on 04/16/19 8:[address] Patient Name: MANA SAXENA Encounter No: [id number] : 1940 Primary Insurance: AETNA MEDICARE PPO or HMO Anticipated DC Date: 04-15-2019 Planned Disposition: Alf Facility External Planned Provider: [facility], MEDICARE REHAB BED DCP follow-up note: CM FAXED UPDATE TO [facility], . INSURANCE AUTHORIZATION RECEIVED FOR REHAB 04-15-19 AT [facility]. FOR DISCHARGE, FAX DISCHARGE INFORMATION TO [facility] AT [phone]. NURSE REPORT TO BE CALLED TO [facility] AT [phone]. [facility] TO ARRANGE VAN TRANSPORTATION. Freddy Salazar, [place]OU[place]ATA MANAGEMENT DCP- Discharge Planning Updated by [id number]: Freddy Salazar on 04/15/19 3:[address] Patient Name: MANA SAXENA Encounter No: [id number] : 1940 Primary Insurance: AETNA MEDICARE PPO or HMO Anticipated DC Date: 04-15-2019 Planned Disposition: Alf Facility External Planned Provider: [facility], MEDICARE REHAB BED DCP follow-up note: CM SPOKE TO [facility], THEY HAVE RECEIVED AUTHORIZATION FROM INSURANCE COMPANY FOR PT TO RETURN TO REHAB. [facility] NOTIFIED [facility]. FOR DISCHARGE, FAX DISCHARGE INFORMATION TO [facility] AT [phone]. NURSE REPORT TO BE CALLED TO [facility] AT [phone]. [facility] TO ARRANGE VAN TRANSPORTATION. Freddy Salazar, CASE MANAGEMENT Appended by Freddy Salazar on 04/15/2019 16:52 CDT: CM DISCUSSED REHAB RETURN WITH PT IN ROOM, PT IN AGREEMENT, IMPORTANT MESSAGE FROM MEDICARE PROVIDED AND EXPLAINED. CM RECEIVED CALL FROM PT'S , SHE IS ALSO IN AGREEMENT WITH RETURN TO REHAB AT [facility]. INSURANCE AUTHORIZATION RECEIVED FOR REHAB 04-15-19 AT [facility]. FOR DISCHARGE, FAX DISCHARGE INFORMATION TO [facility] AT [phone]. NURSE REPORT TO BE CALLED TO [facility] AT [phone]. [facility] TO ARRANGE VAN TRANSPORTATION. FATOUMATA Alvarenga DCP- Discharge Planning Updated by [id number]: Freddy Salazar on 04/14/19 7:[address] Patient Name: MANA SAXENA Encounter No: [id number] : 1940 Primary Insurance: AETNA MEDICARE PPO or HMO Anticipated DC Date: Planned Disposition: Alf Facility External Planned Provider:[facility], MEDICARE REHAB BED DCP follow-up note: CM FAXED UPDATE WITH PHYSICAL THERAPY EVALUATION TO [facility] VIA [employer] AT [phone]. CHART REVIEWED, PT WILL REQUIRE OCCUPATIONAL EVALUATION FOR [facility] FACILITY TO SUBMIT FOR AUTHORIZATION TO RETURN TO REHAB AT FACILITY FOR HOSPITAL DISCHARGE. PATIENT WILL REQUIRE PRIOR AUTHORIZATION FROM INSURANCE TO RETURN TO REHAB. FOR DISCHARGE, FAX DISCHARGE INFORMATION TO [facility] AT [phone]. NURSE REPORT TO BE CALLED TO [facility] AT [phone]. [facility] TO ARRANGE VAN TRANSPORTATION. FATOUMATA Alvarenga DCP- Discharge Planning Updated by [id number]: Freddy Salazar on 04/13/19 8:[address] Patient Name: MANA SAXENA Encounter No: [id number] : 1940 Primary Insurance: AETNA MEDICARE PPO or HMO Anticipated DC Date: Planned Disposition: Alf Facility External Planned Provider: [facility], MEDICARE REHAB BED DCP follow-up note: CM FAXED UPDATE TO [facility] VIA [employer] AT [phone]. CHART REVIEWED, PT WILL REQUIRE OCCUPATIONAL AND PHYSICAL THERAPY EVALUATIONS FOR [facility] FACILITY TO SUBMIT FOR AUTHORIZATION TO RETURN TO REHAB AT FACILITY FOR HOSPITAL DISCHARGE. PATIENT WILL REQUIRE PRIOR AUTHORIZATION FROM INSURANCE TO RETURN TO REHAB. FOR DISCHARGE, FAX DISCHARGE INFORMATION TO [facility] AT [phone]. NURSE REPORT TO BE CALLED TO [facility] AT [phone]. [facility] TO ARRANGE VAN TRANSPORTATION. FATOUMATA Alvarenga DCP- Discharge Planning Updated by [id number]: Freddy Salazar on 04/12/19 4:[address] Patient Name: MANA SAXENA Encounter No: [id number] : 1940 Primary Insurance: AETNA MEDICARE PPO or HMO Anticipated DC Date: Planned Disposition: Alf Facility External Planned Provider: [facility], MEDICARE REHAB BED DCP follow-up note: CM MET WITH PT AND SPOUSE IN ROOM TO DISCUSS DISCHARGE PLANNING AND NEEDS.MANA SAXENA provided verbal consent to discuss current and ongoing needs with/in the presence of: SPOUSE, WANG. PT REPORTS LIVING AT HOME INDEPENDENTLY WITH HIS PRIOR TO REHAB AT [facility]. PT HAS ROLLING WALKER WITH SEAT AND BRAKES WITH NO MEDICAL EQUIPMENT PROVIDER PREFERENCE. PT HAS NO OUTSIDE SERVICES ASSISTING IN THE HOME. CM DISCUSSED AVAILABILITY OF HOME HEALTH, REHAB SERVICES AND MEDICAL EQUIPMENT. PT WILL RETURN TO [facility] TO FINISH REHAB BEFORE RETURNING HOME. PT IS TRANSPORTED TO AND FROM [facility] ON F SCHEDULE BY REHAB VAN. CHOICE COMPLETED AND SIGNED FOR [facility] SKILLED REHAB RETURN. FOR DISCHARGE, FAX DISCHARGE INFORMATION TO [facility] AT [phone]. NURSE REPORT TO BE CALLED TO [facility] AT [phone]. [facility] TO ARRANGE VAN TRANSPORTATION. FATOUMATA Alvarenga DCPIA - Discharge Planning Initial Assessment Updated by [id number]: Freddy Salazar on 04/12/19 5:04 pm * Is the patient Alert and Oriented? Yes * How many steps to enter\exit or inside your home? RAMP * PCP DR. VIC PAREDES , [place] * Pharmacy [facility] * Preadmission Environment Alf Facility * Facility Name [facility] * ADLs Partial Dependent * Partial ADLs (Assistance needed) Ambulation Bathing Medication Management Transfers * Equipment Rolling Walker * Other Equipment ROLLING WALKER WITH SEAT AND BRAKES NO MEDICAL EQUIPMENT PROVIDER PREFERENCE * List name and contact numbers for known caregivers / representatives who currently or will assist patient after discharge: QUEEN ODESSA, SPOUSE, * Verbal permission to speak to the caregivers and representatives has been obtained from the patient. Yes * Community resources currently utilized Other * Please name any agencies selected above. [facility], MWF, NURSING FACILITY TRANSPORT * Additional services required to return to the preadmission environment? No * Can the patient safely return to the preadmission environment? Yes * Has this patient been hospitalized within the prior 30 days at any hospital? Yes Coverage Notice Reviewer: [id number] Salazar Notice Issued Date-Time: 04/12/2019 15:30 Notice Type: Patient Choice Letter Notice Delivered To: Family Member Relationship to Patient: Spouse Key Bed Installer Name: QUEEN ODESSA Delivery Method: HAND - Hand Delivered Cristina Days: Prior Verbal Notification: Recipient Understood Notice: Yes Recipient Signature: Yes Med Rec Note Co-signed by Attending: Coverage Notice Comment: [facility] SNF RETURN Reviewer: [id number] Salazar Notice Issued Date-Time: 04/15/2019 14:20 Notice Type: IM Discharge Notice Notice Delivered To: Patient Relationship to Patient: Key Bed Installer Name: Delivery Method: HAND - Hand Delivered Cristina Days: Prior Verbal Notification: Recipient Understood Notice: Yes Recipient Signature: Yes Med Rec Note Co-signed by Attending: Coverage Notice Comment: Last DP export: 04/15/19 3:54 p Patient Name: MANA SAXENA Page 21485 at 0928 All edits/amendments must be made on the electronic document DICTATION DATE: 04/16/19926 BUSINESS DEVELOPMENT PROFESSIONAL: GRACE 04/16/19926 RPT#: [id number] DC DATE: STATUS: ADM IN [facility] [address] [place] [address] END OF REPORT
--- NOTE | 2019-04-16 10:47 | NUR ---
OT NOTE: BED MOB WITH MOD ASSIST; STATIC SITTING ON EOB WITH MIN ASSIST; SIT TO STAND WITH MOD ASSIST; TRANSFER TO CHAIR WITH SEVERAL STEPS WITH MAX ASSIST. PT DID NOT PERFORM WELL YESTERDAY. SIMPLE GROOMING WITH SET UP; MAX ASSIST TO BATSHEVA SOCKS. DOMO STEEL, OTR/L
[2019-04-16 11:51] VITALS: BP 156/82
[2019-04-16] MEDS ORDERED: Vancomycin HCl PO (12:00)
[2019-04-16] MEDS ORDERED: FLAGYL 500500 MG/100 IVPB (12:00)
[2019-04-16] MEDS ORDERED: VANCOCIN HCL250 MG PO (12:01)
[2019-04-16] MEDS ORDERED: QUESTRAN PACKET PO (12:01)
[2019-04-16] MEDS ORDERED: QUESTRAN LIG1 PACKET PO (12:02)
--- NOTE | 2019-04-16 13:52 | NUR ---
PATIENT SITTING UP IN BED EATING LUNCH AND VISITING WITH . PATIENT IS STABLE AND VSS. PATIENT DENIES ANY NEEDS OR PAIN. WILL CONTINUE TO MONITOR. SR UP X 2 BED IN LOW POSITION AND CALL LIGHT IN REACH.
[2019-04-16] MEDS ORDERED: FLAGYL500 MG PO (14:09)
--- NOTE | 2019-04-16 14:47 | MORECARE ---
CASE MANAGEMENT DISCHARGE SUMMARY PATIENT: MANA SAXENA UNIT: [id number] ADM DATE: 04/11/19 AGE: 78 : 38 SEX: M ROOM/BED: D.1337 AUTHOR: JORGE LORENZO PHYSICIAN: REFERRING PHYSICIAN: CANDIDO WELLS DO DATE OF SERVICE: 04/16/19 Discharge Plan Patient Name: MANA SAXENA Facility: [facility]:[place] : 1940 Planned Disposition: [facility] Facility Anticipated Discharge Date: 04/16/19 Discharge Date: Expected LOS: 5 Initial Reviewer: [id number] Initial Review Date: 04/11/2019 Generated: 04/16/19 3:47 pm Comments DCP- Discharge Planning Updated by [id number]: Freddy Salazar on 04/16/19 8:[address] Patient Name: MANA SAXENA Encounter No: [id number] : 1940 Primary Insurance: AETNA MEDICARE PPO or HMO Anticipated DC Date: 04-15-2019 Planned Disposition: [facility] Facility External Planned Provider: [facility], MEDICARE REHAB BED DCP follow-up note: CM FAXED UPDATE TO [facility], . INSURANCE AUTHORIZATION RECEIVED FOR REHAB 04-15-19 AT [facility]. FOR DISCHARGE, FAX DISCHARGE INFORMATION TO [facility] AT [phone]. NURSE REPORT TO BE CALLED TO [facility] AT [phone]. [facility] TO ARRANGE VAN TRANSPORTATION. FATOUMATA Alvarenga DCP- Discharge Planning Updated by [id number]: Freddy Salazar on 04/15/19 3:[address] Patient Name: MANA SAXENA Encounter No: [id number] : 1940 Primary Insurance: AETNA MEDICARE PPO or HMO Anticipated DC Date: 04-15-2019 Planned Disposition: [facility] Facility External Planned Provider: [facility], MEDICARE REHAB BED DCP follow-up note: CM SPOKE TO [facility], THEY HAVE RECEIVED AUTHORIZATION FROM INSURANCE COMPANY FOR PT TO RETURN TO REHAB. [facility] NOTIFIED [facility] AND [facility]. FOR DISCHARGE, FAX DISCHARGE INFORMATION TO [facility] AT [phone]. NURSE REPORT TO BE CALLED TO [facility] AT [phone]. [facility] TO ARRANGE VAN TRANSPORTATION. Freddy Salazar, CASE MANAGEMENT Appended by Freddy Salazar on 04/15/2019 16:52 CDT: CM DISCUSSED REHAB RETURN WITH PT IN ROOM, PT IN AGREEMENT, IMPORTANT MESSAGE FROM MEDICARE PROVIDED AND EXPLAINED. CM RECEIVED CALL FROM PT'S , SHE IS ALSO IN AGREEMENT WITH RETURN TO REHAB AT [facility]. INSURANCE AUTHORIZATION RECEIVED FOR REHAB 04-15-19 AT [facility]. FOR DISCHARGE, FAX DISCHARGE INFORMATION TO [facility] AT [phone]. NURSE REPORT TO BE CALLED TO [facility] AT [phone]. [facility] TO ARRANGE VAN TRANSPORTATION. FATOUMATA Alvarenga DCP- Discharge Planning Updated by [id number]: Freddy Salazar on 04/14/19 7:[address] Patient Name: MANA SAXENA Encounter No: [id number] : 1940 Primary Insurance: AETNA MEDICARE PPO or HMO Anticipated DC Date: Planned Disposition: [facility] Facility External Planned Provider:[facility], MEDICARE REHAB BED DCP follow-up note: CM FAXED UPDATE WITH PHYSICAL THERAPY EVALUATION TO [facility] VIA [employer] AT [phone]. CHART REVIEWED, PT WILL REQUIRE OCCUPATIONAL EVALUATION FOR INTERMEDIATE FACILITY TO SUBMIT FOR AUTHORIZATION TO RETURN TO REHAB AT FACILITY FOR HOSPITAL DISCHARGE. PATIENT WILL REQUIRE PRIOR AUTHORIZATION FROM INSURANCE TO RETURN TO REHAB. FOR DISCHARGE, FAX DISCHARGE INFORMATION TO [facility] AT [phone]. NURSE REPORT TO BE CALLED TO [facility] AT [phone]. [facility] TO ARRANGE VAN TRANSPORTATION. FATOUMATA Alvarenga DCP- Discharge Planning Updated by [id number]: Freddy Salazar on 04/13/19 8:[address] Patient Name: MANA SAXENA Encounter No: [id number] : 1940 Primary Insurance: AETNA MEDICARE PPO or HMO Anticipated DC Date: Planned Disposition: [facility] Facility External Planned Provider: [facility], MEDICARE REHAB BED DCP follow-up note: CM FAXED UPDATE TO [facility] VIA [employer] AT [phone]. CHART REVIEWED, PT WILL REQUIRE OCCUPATIONAL AND PHYSICAL THERAPY EVALUATIONS FOR INTERMEDIATE FACILITY TO SUBMIT FOR AUTHORIZATION TO RETURN TO REHAB AT FACILITY FOR HOSPITAL DISCHARGE. PATIENT WILL REQUIRE PRIOR AUTHORIZATION FROM INSURANCE TO RETURN TO REHAB. FOR DISCHARGE, FAX DISCHARGE INFORMATION TO [facility] AT [phone]. NURSE REPORT TO BE CALLED TO [facility] AT [phone]. [facility] TO ARRANGE VAN TRANSPORTATION. FATOUMATA Alvarenga DCP- Discharge Planning Updated by [id number]: Freddy Salazar on 04/12/19 4:[address] Patient Name: MANA SAXENA Encounter No: [id number] : 1940 Primary Insurance: AETNA MEDICARE PPO or HMO Anticipated DC Date: Planned Disposition: [facility] Facility External Planned Provider: [facility], MEDICARE REHAB BED DCP follow-up note: CM MET WITH PT AND SPOUSE IN ROOM TO DISCUSS DISCHARGE PLANNING AND NEEDS.MANA SAXENA provided verbal consent to discuss current and ongoing needs with/in the presence of: SPOUSE, WANG. PT REPORTS LIVING AT HOME INDEPENDENTLY WITH HIS PRIOR TO REHAB AT [facility]. PT HAS ROLLING WALKER WITH SEAT AND BRAKES WITH NO MEDICAL EQUIPMENT PROVIDER PREFERENCE. PT HAS NO OUTSIDE SERVICES ASSISTING IN THE HOME. CM DISCUSSED AVAILABILITY OF HOME HEALTH, REHAB SERVICES AND MEDICAL EQUIPMENT. PT WILL RETURN TO [facility] TO FINISH REHAB BEFORE RETURNING HOME. PT IS TRANSPORTED TO AND FROM [facility] ON F SCHEDULE BY REHAB VAN. CHOICE COMPLETED AND SIGNED FOR [facility] SKILLED REHAB RETURN. FOR DISCHARGE, FAX DISCHARGE INFORMATION TO [facility] AT [phone]. NURSE REPORT TO BE CALLED TO [facility] AT [phone]. [facility] TO ARRANGE VAN TRANSPORTATION. FATOUMATA Alvarenga DCPIA - Discharge Planning Initial Assessment Updated by [id number]: Freddy Salazar on 04/12/19 5:04 pm * Is the patient Alert and Oriented? Yes * How many steps to enter\exit or inside your home? RAMP * PCP DR. VIC PAREDES , [place] * Pharmacy [facility] * Preadmission Environment [facility] Facility * Facility Name [facility] * ADLs Partial Dependent * Partial ADLs (Assistance needed) Ambulation Bathing Medication Management Transfers * Equipment Rolling Walker * Other Equipment ROLLING WALKER WITH SEAT AND BRAKES NO MEDICAL EQUIPMENT PROVIDER PREFERENCE * List name and contact numbers for known caregivers / representatives who currently or will assist patient after discharge: QUEEN ODESSA, SPOUSE, * Verbal permission to speak to the caregivers and representatives has been obtained from the patient. Yes * Community resources currently utilized Other * Please name any agencies selected above. [facility], MWF, NURSING FACILITY TRANSPORT * Additional services required to return to the preadmission environment? No * Can the patient safely return to the preadmission environment? Yes * Has this patient been hospitalized within the prior 30 days at any hospital? Yes Coverage Notice Reviewer: [id number] Edilia Salazar Notice Issued Date-Time: 04/12/2019 15:30 Notice Type: Patient Choice Letter Notice Delivered To: Family Member Relationship to Patient: Spouse Senior Db2 Systems Programmer Name: QUEEN ODESSA Delivery Method: HAND - Hand Delivered Cristina Days: Prior Verbal Notification: Recipient Understood Notice: Yes Recipient Signature: Yes Med Rec Note Co-signed by Attending: Coverage Notice Comment: [facility] SNF RETURN Reviewer: [id number] Edilia Salazar Notice Issued Date-Time: 04/15/2019 14:20 Notice Type: IM Discharge Notice Notice Delivered To: Patient Relationship to Patient: Senior Db2 Systems Programmer Name: Delivery Method: HAND - Hand Delivered Cristina Days: Prior Verbal Notification: Recipient Understood Notice: Yes Recipient Signature: Yes Med Rec Note Co-signed by Attending: Coverage Notice Comment: Last DP export: 04/16/19 8:28 a Patient Name: MANA SAXENA Page 09607 at 1447 All edits/amendments must be made on the electronic document DICTATION DATE: 04/16/191445 CURATOR: GRACE 04/16/19 1446 RPT#: [id number] DC DATE: STATUS: ADM IN [facility] [address] [place] [address] END OF REPORT
--- NOTE | 2019-04-16 14:56 | MORECARE ---
CASE MANAGEMENT DISCHARGE SUMMARY PATIENT: MANA SAXENA UNIT: [id number] ADM DATE: 04/11/19 AGE: 78 : 38 SEX: M ROOM/BED: D.3005 AUTHOR: BJDOC PHYSICIAN: REFERRING PHYSICIAN: CANDIDO WELLS DO DATE OF SERVICE: 04/16/19 Discharge Plan Patient Name: MANA SAXENA Facility: [facility]:[place] : 1940 Planned Disposition: Retirement Facility Anticipated Discharge Date: 04/16/19 Discharge Date: Expected LOS: 5 Initial Reviewer: [email or web address] Initial Review Date: 04/11/2019 Generated: 04/16/19 3:55 pm Comments DCP- Discharge Planning Updated by [id number]: Freddy Salazar on 04/16/19 1:[address] Patient Name: MANA SAXENA Encounter No: [id number] : 1940 Primary Insurance: AETNA MEDICARE PPO or HMO Anticipated DC Date: 04-15-2019 Planned Disposition: Retirement Facility External Planned Provider: [facility] DCP follow-up note: HODA FAXED UPDATE TO [facility], . INSURANCE AUTHORIZATION RECEIVED FOR REHAB 04-15-19 AT [facility]. FOR DISCHARGE, FAX DISCHARGE INFORMATION TO [facility] AT [phone]. NURSE REPORT TO BE CALLED TO [facility] AT [phone]. [facility] TO ARRANGE VAN TRANSPORTATION. Freddy Salazar CASE MANAGEMENT Appended by Freddy Salazar on 04/16/2019 14:54 CDT: CM RECEIVED DISCHARGE, FAXED DISCHARGE INFORMATION TO [facility] AT [phone]. CM NOTIFIED [facility] OF [facility], THEY WILL SCHEDULE VAN CAREER AND TECHNOLOGY EDUCATION TEACHER. HODA SPOKE TO PT'S SPOUSE WHO IS IN AGREEMENT WITH DISCHARGE TO REHAB TODAY. NURSE REPORT TO BE CALLED TO [facility] AT [phone]. [facility] TO ARRANGE VAN TRANSPORTATION. FATOUMATA Alvarenga DCP- Discharge Planning Updated by [id number]: Freddy Salazar on 04/15/19 3:[address] Patient Name: MANA SAXENA Encounter No: [id number] : 1940 Primary Insurance: AETNA MEDICARE PPO or HMO Anticipated DC Date: 04-15-2019 Planned Disposition: Retirement Facility External Planned Provider: [facility], MEDICARE REHAB BED DCP follow-up note: CM SPOKE TO [facility], THEY HAVE RECEIVED AUTHORIZATION FROM INSURANCE COMPANY FOR PT TO RETURN TO REHAB. RN HOUSE NOTIFIED [facility]. FOR DISCHARGE, FAX DISCHARGE INFORMATION TO [facility] AT [phone]. NURSE REPORT TO BE CALLED TO [facility] AT [phone]. [facility] TO ARRANGE VAN TRANSPORTATION. Freddy Salazar, CASE MANAGEMENT Appended by Freddy Salazar on 04/15/2019 16:52 CDT: CM DISCUSSED REHAB RETURN WITH PT IN ROOM, PT IN AGREEMENT, IMPORTANT MESSAGE FROM MEDICARE PROVIDED AND EXPLAINED. CM RECEIVED CALL FROM PT'S , SHE IS ALSO IN AGREEMENT WITH RETURN TO REHAB AT [facility]. INSURANCE AUTHORIZATION RECEIVED FOR REHAB 04-15-19 AT [facility]. FOR DISCHARGE, FAX DISCHARGE INFORMATION TO [facility] AT [phone]. NURSE REPORT TO BE CALLED TO [facility] AT [phone]. [facility] TO ARRANGE VAN TRANSPORTATION. FATOUMATA Alvarenga DCP- Discharge Planning Updated by [id number]: Freddy Salazar on 04/14/19 7:[address] Patient Name: MANA SAXENA Encounter No: [id number] : 1940 Primary Insurance: AETNA MEDICARE PPO or HMO Anticipated DC Date: Planned Disposition: Retirement Facility External Planned Provider:[facility], MEDICARE REHAB BED DCP follow-up note: CM FAXED UPDATE WITH PHYSICAL THERAPY EVALUATION TO [facility] VIA [facility] AT [phone]. CHART REVIEWED, PT WILL REQUIRE OCCUPATIONAL EVALUATION FOR CORRECTION FACILITY TO SUBMIT FOR AUTHORIZATION TO RETURN TO REHAB AT FACILITY FOR HOSPITAL DISCHARGE. PATIENT WILL REQUIRE PRIOR AUTHORIZATION FROM INSURANCE TO RETURN TO REHAB. FOR DISCHARGE, FAX DISCHARGE INFORMATION TO [facility] AT [phone]. NURSE REPORT TO BE CALLED TO [facility] AT [phone]. [facility] TO ARRANGE VAN TRANSPORTATION. FATOUMATA Alvarenga DCP- Discharge Planning Updated by [id number]: Freddy Salazar on 04/13/19 8:[address] Patient Name: MANA SAXENA Encounter No: [id number] : 1940 Primary Insurance: AETNA MEDICARE PPO or HMO Anticipated DC Date: Planned Disposition: Retirement Facility External Planned Provider: [facility] DCP follow-up note: CM FAXED UPDATE TO [facility] VIA [facility] AT [phone]. CHART REVIEWED, PT WILL REQUIRE OCCUPATIONAL AND PHYSICAL THERAPY EVALUATIONS FOR CORRECTION FACILITY TO SUBMIT FOR AUTHORIZATION TO RETURN TO REHAB AT FACILITY FOR HOSPITAL DISCHARGE. PATIENT WILL REQUIRE PRIOR AUTHORIZATION FROM INSURANCE TO RETURN TO REHAB. FOR DISCHARGE, FAX DISCHARGE INFORMATION TO [facility] AT [phone]. NURSE REPORT TO BE CALLED TO [facility] AT [phone]. [facility] TO ARRANGE VAN TRANSPORTATION. FATOUMATA Alvarenga DCP- Discharge Planning Updated by [id number]: Freddy Salazar on 04/12/19 4:[address] Patient Name: MANA SAXENA Encounter No: [id number] : 1940 Primary Insurance: AETNA MEDICARE PPO or HMO Anticipated DC Date: Planned Disposition: Retirement Facility External Planned Provider: [facility] DCP follow-up note: CM MET WITH PT AND SPOUSE IN ROOM TO DISCUSS DISCHARGE PLANNING AND NEEDS.MANA SAXENA provided verbal consent to discuss current and ongoing needs with/in the presence of: SPOUSE, . PT REPORTS LIVING AT HOME INDEPENDENTLY WITH HIS PRIOR TO REHAB AT [facility]. PT HAS ROLLING WALKER WITH SEAT AND BRAKES WITH NO MEDICAL EQUIPMENT PROVIDER PREFERENCE. PT HAS NO OUTSIDE SERVICES ASSISTING IN THE HOME. CM DISCUSSED AVAILABILITY OF HOME HEALTH, REHAB SERVICES AND MEDICAL EQUIPMENT. PT WILL RETURN TO [facility] TO FINISH REHAB BEFORE RETURNING HOME. PT IS TRANSPORTED TO AND FROM [facility] SCHEDULE BY REHAB VAN. CHOICE COMPLETED AND SIGNED FOR [facility] SKILLED REHAB RETURN. FOR DISCHARGE, FAX DISCHARGE INFORMATION TO [facility] AT [phone]. NURSE REPORT TO BE CALLED TO [facility] AT [phone]. [facility] TO ARRANGE VAN TRANSPORTATION. FATOUMATA Alvarenga DCPIA - Discharge Planning Initial Assessment Updated by [id number]: Freddy Salazar on 04/12/19 5:04 pm * Is the patient Alert and Oriented? Yes * How many steps to enter\exit or inside your home? RAMP * PCP DR. VIC PAREDES , [place] * Pharmacy [facility] * Preadmission Environment Retirement Facility * Facility Name [facility] * ADLs Partial Dependent * Partial ADLs (Assistance needed) Ambulation Bathing Medication Management Transfers * Equipment Rolling Walker * Other Equipment ROLLING WALKER WITH SEAT AND BRAKES NO MEDICAL EQUIPMENT PROVIDER PREFERENCE * List name and contact numbers for known caregivers / representatives who currently or will assist patient after discharge: QUEEN ODESSA, SPOUSE, * Verbal permission to speak to the caregivers and representatives has been obtained from the patient. Yes * Community resources currently utilized Other * Please name any agencies selected above. [facility], MWF, NURSING FACILITY TRANSPORT * Additional services required to return to the preadmission environment? No * Can the patient safely return to the preadmission environment? Yes * Has this patient been hospitalized within the prior 30 days at any hospital? Yes Coverage Notice Reviewer: [id number] Salazar Notice Issued Date-Time: 04/12/2019 15:30 Notice Type: Patient Choice Letter Notice Delivered To: Family Member Relationship to Patient: Spouse Java Programmer Analyst Name: QUEEN ODESSA Delivery Method: HAND - Hand Delivered Cristina Days: Prior Verbal Notification: Recipient Understood Notice: Yes Recipient Signature: Yes Med Rec Note Co-signed by Attending: Coverage Notice Comment: [facility] Reviewer: [id number] Salazar Notice Issued Date-Time: 04/15/2019 14:20 Notice Type: IM Discharge Notice Notice Delivered To: Patient Relationship to Patient: Java Programmer Analyst Name: Delivery Method: HAND - Hand Delivered Cristina Days: Prior Verbal Notification: Recipient Understood Notice: Yes Recipient Signature: Yes Med Rec Note Co-signed by Attending: Coverage Notice Comment: Last DP export: 04/16/19 1:47 p Patient Name: MANA SAXENA Page [phone] at 1456 All edits/amendments must be made on the electronic document DICTATION DATE: 04/16/194 CAR JOCKEY: GRACE 04/16/191454 RPT#: [id number] DC DATE: STATUS: ADM IN [facility] [address] [place] [address] END OF REPORT
--- NOTE | 2019-04-16 15:12 | NUR ---
OT NOTE: PT REQUIRED MORE EXTENSIVE ASSIST FROM YESTERDAY. PT COMPLETED BED MOB WITH MAX A. PT COMPLETED SIT TO STAND WITH MAX A. PT COMPLETED HYGIENE TASK WITH MAX A. PT COMPLETED UE AROM AXS. THANK YOU, TROY SHORT
[2019-04-16 15:22] VITALS: BP 120/71
--- NOTE | 2019-04-16 17:16 | NUR ---
PATIENT IS STABLE AND VSS. PATIENT IS AWAKE AND ALERT. JUST COMPLETED DIALYSIS IN ROOM. PATIENT DENIES ANY NEEDS OR PAIN. ORDERS RECEIVED FOR DC. WRITTEN AND VERBAL INSTRUCTIONS GIVEN TO PATIENT . PATIENT VERBALIZED UNDERSTANDING BUT PATIENT UNABLE TO SIGN PAPERWORK. PATIENT TRANSPORTED IN TO [facility] FOR TRANSPORT TO [facility]. CALLED REPORT TO CHANDRA JOAQUIN AND DISCHARGE INSTRUCTIONS AND PAPERWORK GIVEN TO [facility].
== END 2019-04-16 17:33 | DRG 371 ==
LOC: D.ER 10:34 → D.M2 13:11
PROVIDERS: Family Medicine; Internal Medicine Nephrology; ADMIT Family Medicine; ATTEND Family Medicine
PROC: 5A1D70Z Performance of Urinary Filtration, Intermittent, Less than 6 Hours Per Day (ICD-10-PCS; principal; 2019-04-12)
DX: A04.71 Enterocolitis due to Clostridium difficile, recurrent (principal); N18.6 End stage renal disease; I12.0 Hypertensive chronic kidney disease with stage 5 chronic kidney disease or end stage renal disease; K92.2 Gastrointestinal hemorrhage, unspecified; E87.6 Hypokalemia; E11.22 Type 2 diabetes mellitus with diabetic chronic kidney disease; D50.9 Iron deficiency anemia, unspecified; D69.6 Thrombocytopenia, unspecified; J44.9 Chronic obstructive pulmonary disease, unspecified; I25.10 Atherosclerotic heart disease of native coronary artery without angina pectoris; B27.00 Gammaherpesviral mononucleosis without complication; F32.9 Major depressive disorder, single episode, unspecified; F41.9 Anxiety disorder, unspecified; E11.65 Type 2 diabetes mellitus with hyperglycemia; Z87.01 Personal history of pneumonia (recurrent); Z87.891 Personal history of nicotine dependence

== ENCOUNTER 2019-04-19 18:25 | Inpatient (IN) | payer MEDICARE ==
[~2019-04-19 18:25] MED LIST changes: +ACIDOPHILUS-PE1 EACH PO; +FLAGYL 500500 MG/100 IVPB; +FLAGYL500 MG PO; +OMNICEF300 MG PO; +QUESTRAN LIG1 PACKET PO; +QUESTRAN PACKET PO; +VANCOCIN HCL250 MG PO; +Vancomycin HCl PO
[2019-04-19 19:30] VITALS: BP 131/73
--- NOTE | 2019-04-19 19:30 | NUR ---
MULTIPLE IV ATTEMPTS AND LAB DRAWS UNSUCCESSFUL. EDP NOTIFIED.
--- NOTE | 2019-04-19 19:55 | NUR ---
EDP AT BEDSIDE, EDP ATTEMPTED R EJ, UNSUCCESSFUL.
--- NOTE | 2019-04-19 20:14 | NUR ---
FSBS 38, PT PROVIDED 2 CUPS OF OJ.
--- NOTE | 2019-04-19 20:20 | NUR ---
LAB AND RT AT PT BEDSIDE DRAWING ABG AND CULTURES.
--- NOTE | 2019-04-19 20:35 | NUR ---
RN AND EDP AT PT BEDSIDE. EDP ATTEMPTED IO TO PT LLE, UNSUCCESSFUL.
[2019-04-19 20:41] VITALS: BP 123/71
--- NOTE | 2019-04-19 20:54 | NUR ---
FSBS 57. EDP LINDA NOTIFIED.
[2019-04-19 21:04] LABS: APTT 43.5 SECONDS (22.8-39.4); INR 1.68 (0.85-1.17); PROTIME 19.2 SECONDS (11.6-15.0)
[2019-04-19 21:20] LABS: BASOPHILS 0.1 % (0-2); EOSINOPHILS 0 % (0-7); HEMATOCRIT 34.4 % (42.0-54.0); HEMOGLOBIN 11.3 g/dL (13.5-17.5); IMMATURE GRANULOCYTES 0.3 % (0-5); LYMPHOCYTES 4.9 % (15-50); MCH 30.8 pg (26.0-34.0); MCHC 32.8 g/dL (31.0-37.0); MCV 93.7 fL (80.0-100.0); MEAN PLATELET VOLUME 10.8 fL (7.4-10.4); MONOCYTES 11.4 % (2-11); NEUTROPHILS 83.3 % (40-80); PLATELET COUNT 247 10x3/uL (130-400); RBC 3.67 10x6/uL (4.20-6.10); RDW 20.2 % (11.5-14.5)
[2019-04-19 21:26] LABS: ALBUMIN 2.3 g/dL (3.4-5.0); ALKALINE PHOSPHATASE 101 U/L (46-116); ALT (SGPT) 18 U/L (10-68); BILIRUBIN - TOTAL 0.62 mg/dL (0.2-1.3); CALC OSMOLALITY 272 mosm/kg (275-300); CALCIUM 8.3 mg/dL (8.5-10.1); CARBON DIOXIDE 26.4 mmol/L (21.0-32.0); CHLORIDE - SERUM 102 mmol/L (98-107); CKMB 2.5 U/L (0.0-3.6); CREATINE KINASE 59 UL (21-232); CREATININE - SERUM 3.8 mg/dL (0.6-1.3); POTASSIUM - SERUM 3.4 mmol/L (3.5-5.1); PROTEIN - SERUM 6.4 g/dL (6.4-8.2); SODIUM 137 mmol/L (136-145); TROPONIN-I 0.044 ng/mL (0.000-0.060); UREA NITROGEN 15 mg/dL (7-18); eGFR NON AFRICAN AMERICAN 16 mL/min (90-120)
[2019-04-19 21:27] LABS: GLUCOSE 56 mg/dL (74-106)
[2019-04-19 21:30] VITALS: BP 119/71
--- NOTE | 2019-04-19 21:45 | NUR ---
PT CLEANED AND BRIEF CHANGED. PT REPOSITIONED IN BED. NO S/S OF ACUTE DISTRESS NOTED.
--- NOTE | 2019-04-19 22:15 | NUR ---
PT SLEEPING ON BED. NO S/S OF ACUTE DISTRESS NOTED. VS WNL.
[2019-04-19 22:30] VITALS: BP 128/59
--- NOTE | 2019-04-19 23:25 | NUR ---
PT SLEEPING ON BED, NO S/S OF ACUTE DISTRESS NOTED.
[2019-04-19 23:30] VITALS: BP 111/58
--- NOTE | 2019-04-19 23:45 | NUR ---
FSBS 270 EDP LINDA NOTIFIED.
--- NOTE | 2019-04-20 00:28 | NUR ---
RN SPOKE TO MEHNAZ AT [facility] REGARDING PT CONDITION AND INPATIENT ADMISSION.
[2019-04-20 00:32] VITALS: BP 96/60
--- NOTE | 2019-04-20 01:00 | NUR ---
PATIENT ARRIVED ON UNIT VIA STRETCHER FROM ER. PATIENT ARRIVED TO UNIT WITH BOWEL MOVEMENT IN BRIEF. CLAY MINER AND NURSE AND ER STAFF CLEANED PATIENT OF INCONTINENT BM AND TRANSFERRED TO BED.
[2019-04-20 01:51] VITALS: BP 93/47; BMI 20.9
--- NOTE | 2019-04-20 01:51 | NUR ---
PATIENT COULDNT ANSWER QUESTIONS APPROPRIATELY WHILE DOING PATIENTS ADULT HISTORY.
--- NOTE | 2019-04-20 02:44 | NUR ---
RECHECKED PATIENTS BLOOD SUGAR FROM EARLIER ER REPORT. PATIENTS BLOOD SUGAR WAS 220. WCTM.
[2019-04-20 04:00] VITALS: BP 113/63
--- NOTE | 2019-04-20 04:16 | NUR ---
PT. RESTING QUIETLY WITH EYES CLOSED. O2 IN USE VIA NC AT 2L. RESPIRATIONS EVEN. NO S/S OF DISTRESS. SR UP X 2. BED IN LOWEST POSITION. CALL LIGHT IN REACH.
--- NOTE | 2019-04-20 05:45 | NUR ---
RECHECKED PATIENTS BLOOD SUGAR. CURRENT BLOOD SUGAR IS 167. NO COVERAGE GIVEN DUE TO FACT THAT PATIENT IS BEGINNING TO TREND DOWN.
--- NOTE | 2019-04-20 07:30 | NUR ---
PT RESTING IN BED, SHIFT ASSESSMENT PERFORMED. DENIES ANY NEEDS AT THIS TIME, WILL CONT TO FOLLOW POC
[2019-04-20 08:49] VITALS: BP 106/67
[2019-04-20 09:28] LABS: HEMATOCRIT 36.4 % (42.0-54.0); HEMOGLOBIN 11.7 g/dL (13.5-17.5); MCH 31.7 pg (26.0-34.0); MCHC 32.1 g/dL (31.0-37.0); MEAN PLATELET VOLUME 10.7 fL (7.4-10.4); NEUTROPHILS 81.2 % (40-80); PLATELET COUNT 211 10x3/uL (130-400); RBC 3.69 10x6/uL (4.20-6.10); RDW 22.8 % (11.5-14.5); WBC 9.2 10x3/uL (4.8-10.8)
[2019-04-20 09:30] LABS: ANION GAP 12.2 mmol/L (8-16); CALCIUM 8.5 mg/dL (8.5-10.1); CARBON DIOXIDE 25.4 mmol/L (21.0-32.0); CREATININE - SERUM 4.2 mg/dL (0.6-1.3); POTASSIUM - SERUM 3.6 mmol/L (3.5-5.1)
[2019-04-20 09:33] LABS: MCV 98.6 fL (80.0-100.0)
[2019-04-20 09:56] VITALS: BMI 20.9
--- NOTE | 2019-04-20 12:18 | NUR ---
PT FSBS IS 262 AND HAS STAYED OVER 200 FOR THE PAST 3 CHECKS. NOTIFIED CHRISSY RENAL CAR CHECKER. NEW ORDER RECIEVED TO D/C THE D5W1/2NS
--- NOTE | 2019-04-20 12:23 | NUR ---
PT RESTING IN BED EATING LUNCH. FAMILY AT BEDSIDE. DENIES ANY NEEDS AT THIS TIME. WILL CONT TO FOLLOW POC
[2019-04-20 13:43] VITALS: BP 126/66
--- NOTE | 2019-04-20 17:26 | NUR ---
PT RESTING IN BED EATING SUPPER. DENIES ANY NEEDS AT THIS TIME, WILL CONT TO FOLLOW POC
--- NOTE | 2019-04-20 19:34 | NUR ---
PATIENT LAYING IN BED. PATIENT ASKED WHEN HE WOULD GET TO GO HOME. PATIENT EDUCATED THAT HIS DOCTOR WOULD LET HIM KNOW WHEN HE COULD. NO OTHER COMPLAINTS AT THIS TIME. NO DISTRESS NOTED.
[2019-04-20 20:00] VITALS: BP 118/70
[2019-04-21] VITALS: BP 107/63
--- NOTE | 2019-04-21 03:27 | NUR ---
PATIENT LAYING IN BED. EYES CLOSED, CHEST RISING AND FALLING. NO DISTRESS NOTED.
[2019-04-21 04:00] VITALS: BP 110/62
[2019-04-21 06:05] LABS: BASOPHILS 0.1 % (0-2); EOSINOPHILS 0.4 % (0-7); HEMOGLOBIN 10.6 g/dL (13.5-17.5); IMMATURE GRANULOCYTES 0.3 % (0-5); LYMPHOCYTES 13.1 % (15-50); MCH 30.3 pg (26.0-34.0); MCHC 32.1 g/dL (31.0-37.0); MCV 94.3 fL (80.0-100.0); MEAN PLATELET VOLUME 10.9 fL (7.4-10.4); MONOCYTES 15.1 % (2-11); WBC 9.2 10x3/uL (4.8-10.8)
[2019-04-21 06:06] LABS: PLATELET COUNT 282 10x3/uL (130-400)
[2019-04-21 06:08] LABS: ALBUMIN 2.2 g/dL (3.4-5.0); ANION GAP 13.2 mmol/L (8-16); BILIRUBIN - TOTAL 0.6 mg/dL (0.2-1.3); CALCIUM 8.5 mg/dL (8.5-10.1); CARBON DIOXIDE 24.6 mmol/L (21.0-32.0); CREATININE - SERUM 4.9 mg/dL (0.6-1.3); POTASSIUM - SERUM 3.8 mmol/L (3.5-5.1); PROTEIN - SERUM 6.7 g/dL (6.4-8.2); VANCOMYCIN - RANDOM 13.8 ug/mL (10.0-20.0)
--- NOTE | 2019-04-21 07:30 | NUR ---
ALERT WITH SOME CONFUSION. NO C/O PAIN AT THIS TIME.CL IN REACH.
[2019-04-21 08:31] VITALS: BP 139/78
--- NOTE | 2019-04-21 09:33 | MORECARE ---
CASE MANAGEMENT DISCHARGE SUMMARY PATIENT: MANA SAXENA UNIT: [id number] ADM DATE: 04/20/19 AGE: 78 : 38 SEX: M ROOM/BED: D.2102 AUTHOR: JORGE LORENZO PHYSICIAN: REFERRING PHYSICIAN: CASEY NAIDU MD DATE OF SERVICE: 04/21/19 Discharge Plan Patient Name: MANA SAXENA [facility] [facility] 1940 Planned Disposition: Nursing Home Facility Anticipated Discharge Date: 04/22/19 Discharge Date: Expected LOS: 2 Initial Reviewer: [id number] Initial Review Date: 04/14/2019 Generated: 04/21/19 10:33 am External Providers External Provider: [facility] Next Contact Date: 04/21/2019 Service Request Date: Service Type: Resolution: Reviewer: Comments: Coverage Notice Reviewer: [id number] Salazar Notice Issued Date-Time: 04/21/2019 9:10 Notice Type: IM Discharge Notice Notice Delivered To: Patient Relationship to Patient: Truck Sales Manager Name: Delivery Method: HAND - Hand Delivered Cristina Days: Prior Verbal Notification: Recipient Understood Notice: Yes Recipient Signature: Yes Med Rec Note Co-signed by Attending: Coverage Notice Comment: Reviewer: AMELIA Salazar Notice Issued Date-Time: 04/21/2019 9:10 Notice Type: Patient Choice Letter Notice Delivered To: Patient Relationship to Patient: Truck Sales Manager Name: Delivery Method: HAND - Hand Delivered Cristina Days: Prior Verbal Notification: Recipient Understood Notice: Yes Recipient Signature: Yes Med Rec Note Co-signed by Attending: Coverage Notice Comment: [facility] Patient Name: MANA SAXENA Page [phone] at 0933 All edits/amendments must be made on the electronic document DICTATION DATE: 04/21/19931 DOCUMENT PROCESSOR: GRACE 04/21/19931 RPT#: [id number] DC DATE: STATUS: ADM IN [facility] [address] [place] [address] END OF REPORT
--- NOTE | 2019-04-21 09:40 | MORECARE ---
CASE MANAGEMENT DISCHARGE SUMMARY PATIENT: MANA SAXENA UNIT: [id number] ADM DATE: 04/20/19 AGE: 78 : 38 SEX: M ROOM/BED: D.2102 AUTHOR: BJ,DOC PHYSICIAN: REFERRING PHYSICIAN: CASEY NAIDU MD DATE OF SERVICE: 04/21/19 Discharge Plan Patient Name: MANA SAXENA Facility: [facility]:[place] : 1940 Planned Disposition: Penitentiary Facility Anticipated Discharge Date: 04/22/19 Discharge Date: Expected LOS: 2 Initial Reviewer: [id number] Initial Review Date: 04/14/2019 Generated: 04/21/19 10:39 am DCPIA - Discharge Planning Initial Assessment Updated by AMELIA: Freddy Salazar on 04/21/19 9:35 am * Is the patient Alert and Oriented? Yes * How many steps to enter\exit or inside your home? RAMP * PCP DR. VIC PAREDES [place] * Pharmacy [facility] * Preadmission Environment Penitentiary Facility * Facility Name [facility] * ADLs Partial Dependent * Partial ADLs (Assistance needed) Ambulation Bathing Dressing Medication Management Toileting Transfers * Equipment Rolling Walker * Other Equipment ROLLING WALKER WITH SEAT AND BRAKES NO MEDICAL EQUIPMENT PROVIDER PREFERENCE * List name and contact numbers for known caregivers / representatives who currently or will assist patient after discharge: KATY THOMSON, * Verbal permission to speak to the caregivers and representatives has been obtained from the patient. Yes * Community resources currently utilized Other * Please name any agencies selected above. OUT[facility]IENT DIALYSIS, [facility], MWF, FACILITY TRANSPORTS * Additional services required to return to the preadmission environment? No * Can the patient safely return to the preadmission environment? Yes * Has this patient been hospitalized within the prior 30 days at any hospital? Yes Coverage Notice Reviewer: [id number] Edilia Salazar Notice Issued Date-Time: 04/21/2019 9:10 Notice Type: IM Discharge Notice Notice Delivered To: Patient Relationship to Patient: Presales Consultant Name: Delivery Method: HAND - Hand Delivered Cristina Days: Prior Verbal Notification: Recipient Understood Notice: Yes Recipient Signature: Yes Med Rec Note Co-signed by Attending: Coverage Notice Comment: Reviewer: AMELIA Milianwell Notice Issued Date-Time: 04/21/2019 9:10 Notice Type: Patient Choice Letter Notice Delivered To: Patient Relationship to Patient: Presales Consultant Name: Delivery Method: HAND - Hand Delivered Cristina Days: Prior Verbal Notification: Recipient Understood Notice: Yes Recipient Signature: Yes Med Rec Note Co-signed by Attending: Coverage Notice Comment: [facility] Last DP export: 04/21/19 8:33 a Patient Name: MANA SAXENA Page [phone] at 0940 All edits/amendments must be made on the electronic document DICTATION DATE: 04/21/19938 AGRICULTURAL EQUIPMENT DESIGN ENGINEER: GRACE 04/21/19938 RPT#: [id number] DC DATE: STATUS: ADM IN [facility] [address] [place] [address] END OF REPORT
--- NOTE | 2019-04-21 09:46 | MORECARE ---
CASE MANAGEMENT DISCHARGE SUMMARY PATIENT: MANA SAXENA UNIT: [id number] ADM DATE: 04/20/19 AGE: 78 : 38 SEX: M ROOM/BED: D.2102 AUTHOR: BJ,DOC PHYSICIAN: REFERRING PHYSICIAN: CASEY NAIDU MD DATE OF SERVICE: 04/21/19 Discharge Plan Patient Name: MANA SAXENA Facility: [facility]:[place] : 1940 Planned Disposition: Halfway Facility Anticipated Discharge Date: 04/22/19 Discharge Date: Expected LOS: 2 Initial Reviewer: [id number] Initial Review Date: 04/14/2019 Generated: 04/21/19 10:46 am Comments DCP- Discharge Planning Updated by [id number]: Freddy Salazar on 04/21/19 8:[address] Patient Name: MANA SAXENA Admission Status: ER Accout number: [id number] Admission Date: 04-20-2019 : 1940 Admission Diagnosis: Attending: CASEY NAIDU Current LOS: 1 Anticipated DC Date: 04-22-2019 Planned Disposition: Halfway Facility Primary Insurance: AETNA MEDICARE PPO or HMO PLANNED EXTERNAL PROVIDER: [facility], MEDICARE REHAB BED Discharge Planning Comments: CM MET WITH PT IN ROOM TO DISCUSS DISCHARGE PLANNING AND NEEDS. PT REPORTS HE WANTS TO GO BACK TO REHAB TODAY. PT IS IN REHAB AT [facility] IN [place]. PT GOES TO DIALYSIS ON MWF SCHEDULE IN [place], THE REHAB TRANSPORTS. CHOICE SIGNED FOR [facility]. IMPORTANT MESSAGE FROM MEDICARE PROVIDED AND EXPLAINED. CM FAXED UPDATE TO [facility]JA OF [facility] AT [phone]. CM OBTAINED ORDER FOR OCCUPATIONAL THERAPY EVALUATION THAT WILL BE REQUIRED FOR PT TO RETURN TO REHAB HE HAS MANAGED MEDICARE. FOR DISCHARGE, FAX DISCHARGE INFORMATION TO [facility] AT [phone]. NURSE REPORT TO BE CALLED TO [facility] AT [phone]. [facility] TO PROVIDE VAN TRANSPORTATION. Flue Cleaner: Freddy Salazar DCPIA - Discharge Planning Initial Assessment Updated by [id number]: Freddy Salazar on 04/21/19 9:35 am * Is the patient Alert and Oriented? Yes * How many steps to enter\exit or inside your home? RAMP * PCP DR. VIC PAREDES, [place] * Pharmacy [facility] * Preadmission Environment [facility]way Facility * [facility] * ADLs Partial Dependent * Partial ADLs (Assistance needed) Ambulation Bathing Dressing Medication Management Toileting Transfers * Equipment Rolling Walker * Other Equipment ROLLING WALKER WITH SEAT AND BRAKES NO MEDICAL EQUIPMENT PROVIDER PREFERENCE * List name and contact numbers for known caregivers / representatives who currently or will assist patient after discharge: QUEEN ODESSA, SPOUSE, * Verbal permission to speak to the caregivers and representatives has been obtained from the patient. Yes * Community resources currently utilized Other * Please name any agencies selected above. OUTPATIENT DIALYSIS, [place] [facility], MWF, FACILITY TRANSPORTS * Additional services required to return to the preadmission environment? No * Can the patient safely return to the preadmission environment? Yes * Has this patient been hospitalized within the prior 30 days at any hospital? Yes Coverage Notice Reviewer: [id number] Salazar Notice Issued Date-Time: 04/21/2019 9:10 Notice Type: IM Discharge Notice Notice Delivered To: Patient Relationship to Patient: Truck Body Repairer Name: Delivery Method: HAND - Hand Delivered Cristina Days: Prior Verbal Notification: Recipient Understood Notice: Yes Recipient Signature: Yes Med Rec Note Co-signed by Attending: Coverage Notice Comment: Reviewer: AMELIA Salazar Notice Issued Date-Time: 04/21/2019 9:10 Notice Type: Patient Choice Letter Notice Delivered To: Patient Relationship to Patient: Truck Body Repairer Name: Delivery Method: HAND - Hand Delivered Cristina Days: Prior Verbal Notification: Recipient Understood Notice: Yes Recipient Signature: Yes Med Rec Note Co-signed by Attending: Coverage Notice Comment: [facility] Last DP export: 04/21/19 8:39 a Patient Name: MANA SAXENA Page [phone] at 0946 All edits/amendments must be made on the electronic document DICTATION DATE: 04/21/19944 HAUNTED HISTORY TOUR GUIDE: GRACE 04/21/19944 RPT#: [id number] DC DATE: STATUS: ADM IN [facility] [address] [place] [address] END OF REPORT
--- NOTE | 2019-04-21 10:12 | NUR ---
GONE TO DIALYSIS AT THIS TIME.
--- NOTE | 2019-04-21 13:23 | NUR ---
RETURNED FROM DIALYSIS. 3L REMOVED DURING DIALYSIS PER REPORT. VSS. NO DIFFICULTY IN DIALYSIS.
--- NOTE | 2019-04-21 15:07 | NUR ---
CODE BLUE CALLED. PATIENT JUST BACK FROM DIALYSIS. CALL PLACED TO DR. NAIDU.
--- NOTE | 2019-04-21 15:25 | NUR ---
1445 ROUNDS WERE MADE BY Vernon BRADLEY RN. PT WAS AWAKE AND RESP. HOB WAS UP NO DISTRESS WAS NOTED. AT 1500 YESSY TEAM PHYSICIAN WENT TO ROOM TO GET VS. FOUND PT UNRESP. TEAM PHYSICIAN CAME AND GOT THIS ELECTRICIAN SUPERVISOR SUBSTATION. THIS ELECTRICIAN SUPERVISOR SUBSTATION FOUND PT UNRESP AND WITHOUT RESP AND A PULSE. CPR STARTED AND CODE CALLED. SEE CODE SHEET FOR FURTHER.
--- NOTE | 2019-04-21 15:26 | NUR ---
@5804 PLACED A CALL TO QUEEN ODESSA, AND HAD TO LEAVE HER A MESSAGE AT [phone] TO PLEASE CALL ME AT [phone] OR [phone] QUICK SHE COULD IN REGARDS TO HER . @ 8386 CALLED JOY LEVINE AT [phone] TO SEE IF BY CHANCE HER AUNT WAS WITH HER OR IF SHE KNEW HOW TO GET HER. EXPLAINED IT WAS RATHER IMPORTANT WE SPOKE WITH HER SOON. SHE STATED THAT HER NEPHEW WAS STRANDED AND SHE WAS DRIVING TO PICK HIM UP AND SHE WOULD CALL HER CELLPHONE, BUT SHE WOULD NOT GIVE ME THE PHONE NUMBER. SHE ASKED IF IT WAS REAL EMERGENT AND IT WAS EXPLAINED THAT THEY WERE TRYING TO RESCUITATE HIM AT THE MOMENT AND WE NEEDED TO SEE HOW MUCH EFFORT SHE WANTED US TO MAKE. SHE SAID I WILL CALL HER. @ 1380, I RECEIVED A CALL BACK FROM IDRIS WHO STATED HIS WAS IN [employer] AND SHE TOLD HER TO GET UP HERE NOW BUT DID NOT TELL HER WHY. IDRIS THEN STATED THAT THE PAPERWORK WAS BROUGHT UP TO THE HOSPITAL AND PUT ON THE CHART STATING THAT HE DID NOT WANT TO BE PUT ON THE MACHINE AND DID NOT WANT TO BE PUT THROUGH ALL THAT. IDRIS IS ON THE PAPERWORK BROUGHT UP POA. PAPERWORK FOUND IN THE COMPUTER. I WENT TO THE ROOM AND TOLD THE CODE TEAM THAT I HAD JUST GOTTEN OFF THE PHONE WITH THE NIECE, IDRIS LEVINE, WHO SAID THAT THE PATIENT DID NOT WANT TO BE PUT THROUGH THIS AND ON A VENT, AND THAT PAPERWORK WAS IN THE CHART RE: WISHES AND THAT IDRIS IS ON THERE A POA. CODE WAS STOPPED.
--- NOTE | 2019-04-21 15:32 | MORECARE ---
CASE MANAGEMENT DISCHARGE SUMMARY PATIENT: MANA SAXENA UNIT: [id number] ADM DATE: 04/20/19 AGE: 78 : 36 SEX: M ROOM/BED: D.2102 AUTHOR: BJ,DOC PHYSICIAN: REFERRING PHYSICIAN: CASEY NAIDU MD DATE OF SERVICE: 04/21/19 Discharge Plan Patient Name: MANA SAXENA Facility: [facility]:[place] : 1940 Planned Disposition: Group Home Facility Anticipated Discharge Date: 04/21/19 Discharge Date: Expected LOS: 1 Initial Reviewer: [email or web address] Initial Review Date: 04/14/2019 Generated: 04/21/19 4:32 pm Comments DCP- Discharge Planning Updated by [id number]: Freddy Salazar on 04/21/19 2:[address] Patient Name: MANA SAXENA Encounter No: [id number] : 1940 Primary Insurance: [employer] MEDICARE PPO or HMO Anticipated DC Date: 04-21-2019 Planned Disposition: DCP follow-up note: CM ADVISED BY NURSING THAT PT HAD . CM NOTIFED [facility] AT [phone], CANCELLED REQUEST FOR REHAB SERVICES. FATOUMATA Alvarenga DCP- Discharge Planning Updated by [email or web address]: Freddy Salazar on 04/21/19 8:[address] Patient Name: MANA SAXENA Admission Status: ER Accout number: [id number] Admission Date: 04-20-2019 : 1940 Admission Diagnosis: Attending: CASEY NAIDU Current LOS: 1 Anticipated DC Date: 04-22-2019 Planned Disposition: Group Home Facility Primary Insurance: [employer] MEDICARE PPO or HMO PLANNED EXTERNAL PROVIDER: [facility] MEDICARE REHAB BED Discharge Planning Comments: CM MET WITH PT IN ROOM TO DISCUSS DISCHARGE PLANNING AND NEEDS. PT REPORTS HE WANTS TO GO BACK TO REHAB TODAY. PT IS IN REHAB AT [facility] IN [place]. PT GOES TO DIALYSIS ON MWF SCHEDULE IN [place], THE REHAB TRANSPORTS. CHOICE SIGNED FOR [facility]. IMPORTANT MESSAGE FROM MEDICARE PROVIDED AND EXPLAINED. CM FAXED UPDATE TO PUJA MADSEN [facility] AT [phone]. CM OBTAINED ORDER FOR OCCUPATIONAL THERAPY EVALUATION THAT WILL BE REQUIRED FOR PT TO RETURN TO REHAB HE HAS MANAGED MEDICARE. FOR DISCHARGE, FAX DISCHARGE INFORMATION TO [facility] AT [phone]. NURSE REPORT TO BE CALLED TO [facility] AT [phone]. [facility] TO PROVIDE V[facility] TRANSPORTATION. Ad Taker: Freddy Salazar DCPIA - Discharge Planning Initial Assessment Updated by [id number]: Freddy Salazar on 04/21/19 9:35 am * Is the patient Alert and Oriented? Yes * How many steps to enter\exit or inside your home? RAMP * PCP DR. VIC PAREDES, [place] * Pharmacy [facility] * Preadmission Environment Group Home Facility * Facility Name [facility] * ADLs Partial Dependent * Partial ADLs (Assistance needed) Ambulation Bathing Dressing Medication Management Toileting Transfers * Equipment Rolling Walker * Other Equipment ROLLING WALKER WITH SEAT AND BRAKES NO MEDICAL EQUIPMENT PROVIDER PREFERENCE * List name and contact numbers for known caregivers / representatives who currently or will assist patient after discharge: QUEEN ODESSA, SPOUSE, * Verbal permission to speak to the caregivers and representatives has been obtained from the patient. Yes * Community resources currently utilized Other * Please name any agencies selected above. OUTPATIENT DIALYSIS, [place] [facility], MWF, FACILITY TRANSPORTS * Additional services required to return to the preadmission environment? No * Can the patient safely return to the preadmission environment? Yes * Has this patient been hospitalized within the prior 30 days at any hospital? Yes Coverage Notice Reviewer: [id number] Edilia Salazar Notice Issued Date-Time: 04/21/2019 9:10 Notice Type: IM Discharge Notice Notice Delivered To: Patient Relationship to Patient: Clipper And Turner Name: Delivery Method: HAND - Hand Delivered Cristina Days: Prior Verbal Notification: Recipient Understood Notice: Yes Recipient Signature: Yes Med Rec Note Co-signed by Attending: Coverage Notice Comment: Reviewer: [id number] Edilia Salazar Notice Issued Date-Time: 04/21/2019 9:10 Notice Type: Patient Choice Letter Notice Delivered To: Patient Relationship to Patient: Clipper And Turner Name: Delivery Method: HAND - Hand Delivered Cristina Days: Prior Verbal Notification: Recipient Understood Notice: Yes Recipient Signature: Yes Med Rec Note Co-signed by Attending: Coverage Notice Comment: [facility] Last DP export: 04/21/19 8:46 a Patient Name: MANA SAXENA Page [id number] at 1532 All edits/amendments must be made on the electronic document DICTATION DATE: 04/21/191531 NATIONAL ACCOUNT EXECUTIVE: GRACE 04/21/191531 RPT#: [id number] DC DATE: STATUS: ADM IN [facility] [address] [place] [address] END OF REPORT
--- NOTE | 2019-04-21 15:50 | NUR ---
1513 MECHANICAL DESIGN ENGINEER FACILITIES CALLED TIAN LEVINE-SEE MECHANICAL DESIGN ENGINEER FACILITIES NOTES. MECHANICAL DESIGN ENGINEER FACILITIES(Rupa BURCH) CAME TO ROOM AND INFORMED CODE TEAM THAT PT WAS A DNR AND DID NOT WANT INTUBATION. 1520 CPR WAS STOPPED 1525 PT WAS PRONOUNCED BY DR. SELBY 1530. [employer] EVALUATION SUPERVISOR WAS CALLED. ALIZA CARLIN RELEASED THE BODY.
--- NOTE | 2019-04-21 16:20 | NUR ---
1600 FAMILY ARRIVED. FAMILY INFORMED OF . AND NEICE ARE PRESENT. 1600 A[facility]OTT CALLED AND DECLINED DONATION. 1616 HOME NOTIFIED.
--- NOTE | 2019-04-21 16:49 | NUR ---
PERSONAL BELONGINGS GIVEN TO . REQUEST THAT BOTTOM TEETH GO WITH PT TO HOME WITH PATIENT.
--- NOTE | 2019-04-21 17:17 | NUR ---
BODY RELEASED TO HOME AT THIS TIME. TEETH SENT WITH HIM.
== END 2019-04-21 17:41 | DRG 177 ==
LOC: D.ER 18:25 → D.M2 04-20 00:38
PROVIDERS: Family Medicine; ADMIT Internal Medicine Nephrology; ATTEND Internal Medicine Nephrology
DX: J69.0 Pneumonitis due to inhalation of food and vomit (principal); N18.6 End stage renal disease; E43 Unspecified severe protein-calorie malnutrition; G93.41 Metabolic encephalopathy; I12.0 Hypertensive chronic kidney disease with stage 5 chronic kidney disease or end stage renal disease; E11.22 Type 2 diabetes mellitus with diabetic chronic kidney disease; Z99.2 Dependence on renal dialysis; Z79.4 Long term (current) use of insulin; I46.9 Cardiac arrest, cause unspecified; Z66 Do not resuscitate